=== PATIENT | female | born 1955 | race Caucasian/White ===

== ENCOUNTER → 2020-02-28 09:56 | Outpatient (BNVA) | payer MEDICARE, MEDICAID, SELFPAY | PROVIDERS: PCP Internal Medicine; Referring Provider Internal Medicine; Visit Provider Orthopaedic Surgery | DX: S42.201D Unspecified fracture of upper end of right humerus, subsequent encounter for fracture with routine healing (principal) | CPT/HCPCS: 20610; 99214; J1040 ==

== ENCOUNTER 2020-04-03 15:18 | Emergency (ER) | payer MEDICARE, MEDICAID, SELFPAY ==
[2020-04-03 15:44] VITALS: BP 140/53; PULSE 77; RESP 11; TEMP 36.6; O2SAT 100; BMI 25.6
[2020-04-03 15:51] VITALS: BP 140/53; PULSE 75; RESP 16; TEMP 36.6; O2SAT 100
--- NOTE | 2020-04-03 16:23 | ECG_ITS ---
Test Reason : SOB Blood Pressure : / mmHG Vent. Rate : 070 BPM Atrial Rate : 070 BPM P-R Int : 162 ms QRS Dur : 088 ms QT Int : 398 ms P-R-T Axes : 018 043 042 degrees QTc Int : 429 ms Normal sinus rhythm Normal ECG When compared with ECG of 05-MAY-2016 13:46, No significant change was found Heart rate has increased Referred By: Rafael Nicholas Electronically Signed By:JOEY BLACKMON MD
--- NOTE | 2020-04-03 16:23 | XR_ITS ---
EXAMINATION: XR CHEST CLINICAL INFORMATION: Cough and shortness of breath. COMPARISON: 04/06/2019 chest radiographs. TECHNIQUE: Frontal view of the chest was obtained. FINDINGS: A small focal opacity is seen laterally in the right midlung. The left lung is clear. The heart and mediastinal structures are unremarkable. XR/XR chest 1V IMPRESSION: Small focal opacity laterally in the right midlung may be projectional representing summation overlapping structures however a small infiltrate cannot be excluded.
--- NOTE | 2020-04-03 16:25 | ED_ITS ---
HPI - General Adult General Chief complaint: General Medical Stated complaint: NOT EATING WELL/DIARRHEA, COVID+ Time Seen by Provider: 04/03/20 16:22 Source: patient, EMS and bellows tester Mode of arrival: EMS Limitations: no limitations History of Present Illness HPI narrative: 64 years old female been having symptoms of flu-like symptoms body ache, headache, dry cough, chest pain with coughing, nausea, vomiting, p atient had recent exposure to somebody positive for COVID, patient had prior testing by her PCP for COVID was -2 weeks ago, patient is here today for worsening of his generalized weakness and dry cough. Patient described the symptoms started 3 days ago, symptoms as constant, associated symptoms as described above, nothing worsening the symptoms or improving the symptoms. Related Data Home Medications Medication Instructions Recorded Confirmed ascorbate calcium (vitamin C) PO 02/12/20 atorvastatin 80 mg tablet 80 mg PO DAILY 02/12/20 cholecalciferol (vitamin D3) 250 250 mcg PO DAILY 02/12/20 mcg (10,000 unit) capsule gabapentin 600 mg tablet 600 mg PO BID 02/12/20 hydrochlorothiazide 25 mg tablet 25 mg PO DAILY 02/12/20 hydroxyzine pamoate 25 mg capsule 25 mg PO BEDTIME 02/12/20 insulin glargine 100 unit/mL 10 unit SUBCUT DAILY 02/12/20 subcutaneous solution [id number] 1 cap PO TID 02/12/20 24,000-76,000-120,000 unit capsule,delayed rel lisinopril 40 mg tablet 40 mg PO DAILY 02/12/20 loperamide 2 mg capsule 2 mg PO Q6H PRN 02/12/20 metformin 500 mg tablet 500 mg PO DAILY 02/12/20 metoprolol tartrate 25 mg tablet 12.5 mg PO BID 02/12/20 omeprazole 40 mg capsule,delayed 40 mg PO DAILY 02/12/20 release Previous Rx's Medication Instructions Recorded sucralfate 100 mg/mL oral 3 ml PO .daily before supper #420 03/25/20 suspension ml doxycycline hyclate 100 mg PO BID #10 cap 04/03/20 Allergies Allergy/AdvReac Type Severity Reaction Status Date / Time cortisone [CORTISONE] Allergy Intermediate RASH Verified 03/25/20 09:36 morphine [Morphine] Allergy Intermediate RASH, Verified 03/25/20 09:36 ITCHING Penicillins Allergy Mild ITCHING Verified 03/25/20 09:36 hydrocortisone Allergy Unknown Unknown Verified 03/25/20 09:36 acetaminophen [From Percocet] Allergy Unknown Verified 03/25/20 09:36 oxycodone [From Percocet] Allergy Unknown Verified 03/25/20 09:36 sulfamethoxazole Allergy Unknown Verified 03/25/20 09:36 [From Bactrim] trimethoprim [From Bactrim] Allergy Unknown Verified 03/25/20 09:36 Review of Systems Review of Systems: All other systems are reviewed and are negative Constitutional: Reports as per HPI and Reports no additional constitutional complaints Eyes: Reports as per HPI and Reports no additional eye complaints Reports system reviewed and no additional complaints, except as documented Cardiovascular: Reports as per HPI and Reports no additional cardiovascular complaints Respiratory: Reports as per HPI and Reports no additional respiratory complaints Gastrointestinal: Reports as per HPI and Reports no additional gastrointestinal complaints Genitourinary: Reports no additional female genitourinary complaints Musculoskeletal: Reports no additional musculoskeletal complaints Skin/Breast: Reports system reviewed and no additional complaints, except as docu Psychiatric: Reports no additional psychiatric complaints Endocrine: Reports no additional endocrine complaints Hematologic/Lymphatic: Reports no additional hematologic/lymphatic complaints Allergic/Immunologic: Reports no additional allergic/immunologic complaints Reports system reviewed and no additional complaints, except as documented and Reports Abnormal speech present [facility] Past Medical History Surgical History H/O colonoscopy with polypectomy History of bilateral carpal tunnel release History of cholecystectomy History of esophagogastroduodenoscopy (EGD) Hx of colonoscopy Family History Family History Father No problems noted. Mother No problems noted. Brother No problems noted. Sister Breast cancer Sister No problems noted. Sister No problems noted. Sister No problems noted. Social History Social History Alcohol intake: never Smoking Status: Never smoker Smoked in Last 30 Days: No Use of substances other than those prescribed or required for medical reasons: No Advance Directives: No Advance Directives Information Provided: Yes Current occupational status: unemployed Current occupation: right handed Physical Exam Vital Signs: Vital Signs: Last Vital Signs Temp 98.7 F 04/03/20 17:26 Pulse 70 04/03/20 17:26 Resp 12 04/03/20 17:26 BP 142/71 H 04/03/20 17:26 Pulse Ox 100 04/03/20 17:26 Body Mass Index 25.6 Vital signs have been reviewed as normal and appeared to be correct. Blood pressure in the high range. Heart rate normal. Respiration rate normal. Temperature normal. Oxygen saturation normal. Appearance: Alert. Oriented X3. No acute distress. Head: Normal external exam. Normocephalic. Atraumatic. No Garcia signs noted. No raccoon eyes noted Eyes: PERRLA. EOMI. Conjunctiva and sclera normal. Eyelids normal. ENT: EAC normal. TM's Normal. Pharynx normal. Uvula midline. Moist mucous membranes. No trismus noted. No drooling noted. No muffled voice noted. Neck: Normal inspection. Neck supple. FROM. No adenopathy. Thyroid Normal. No meningeal signs. No neck mass noted. CVS: Normal heart rate and rhythm. Heart sound normal. No murmurs noted. Pulses normal throughout. Respiratory: No respiratory distress. Painless inspiration. Breath sounds normal. No wheezes/rales/rhonchi noted. Chest nontender. No accessory muscle usage noted or decreased air movement noted. Abdomen: Soft and nontender. Bowel sounds normal in all 4 quadrants. No distention noted. No organomegaly noted. No visible injury noted. Back: No CVA tenderness. Full range of motion noted. Skin: Skin warm and dry. Normal skin color. Normal skin turgor. No rashes/lesions/lacerations noted. Extremities: No lower extremity edema. Extremities exhibit normal range of motion. Extremities nontender. Neuro: Oriented X 3. No motor deficit. No sensory deficit. Reflexes normal. Course Course Course Narrative: 64-year-old female history of flu-like symptoms with positive recent exposure to COVID positive personal. Will monitor oxygen saturation on room air which appear to be fine, respiratory rate, chest x-ray, reassess the patient. Medical Decision Making MDM Narrative Medical decision making narrative: Assessment and plan. 64-year-old female came in with several days of generalized body ache, headache, COVID like symptoms after exposed to somebody was positive for COVID. Patient tested negative for COVID in the ER. Chest x-ray showed subtle area and right middle lobe could represent infiltrate?, will cover patient with doxycycline for few days. Lab Data Result diagrams: 04/03/20 16:34 04/03/20 16:34 Labs: Lab Results 04/03/20 04/03/20 04/03/20 Range/Units 16:34 16:34 16:34 WBC 8.2 (4.8-10.8) X10*3/uL RBC 3.85 L (4.20-5.50) X10*6/uL Hgb 12.0 (12.0-16.0) g/dl Hct 34.6 L (37-47) % MCV 89.9 (80-98) fL MCH 31.2 (27.0-33.0) pg MCHC 34.7 (31.0-35.0) g/dl RDW 11.8 (11.0-16.0) % Plt Count 245 (160-400) X10*3/uL MPV 11.8 (9.4-12.3) fL Immature Gran % (Auto) 0.4 (0.0-0.4) % Neut % (Auto) 65.0 (45-73) % Lymph % (Auto) 22.3 (20-40) % [place] % (Auto) 10.0 (2-11) % Eos % (Auto) 1.7 (0-4) % Baso % (Auto) 0.6 (0-2) % Lymph # (Auto) 1.8 (1.2-4.9) X10*3/uL [place] # (Auto) 0.8 (0.1-1.2) X10*3/uL Eos # (Auto) 0.1 (0.0-0.4) X10*3/uL Baso # (Auto) 0.1 (0.0-0.2) X10*3/uL Abs Immat Gran (auto) 0.03 (0.00-0.03) X10*3/uL Absolute Neuts (auto) 5.3 (2.0-8.3) X10*3/uL Absolute Nucleated RBC 0.000 (0.0-0.012) X10*3/uL Nucleated RBC % (auto) 0.0 (0.0-0.2) /100WBC Sodium Cancelled 133 L Potassium Cancelled 3.7 Chloride Cancelled 96 Carbon Dioxide Cancelled 23 Anion Gap Cancelled 18 BUN Cancelled 23 H Creatinine Cancelled 1.13 Estim Creat Clear Calc Cancelled 42.8 Estimated GFR Cancelled 48 Random Glucose Cancelled 126 H Calcium Cancelled 9.6 Total Bilirubin 0.5 (0.0-1.0) mg/dL Direct Bilirubin 0.2 (0.0-0.5) mg/dL AST 17 (5-31) U/L ALT 10 (0-31) U/L Alkaline Phosphatase 63 (39-117) U/L Troponin I High Sens (<3.5-17.0) ng/L B-Natriuretic Peptide (<100) pg/mL Total Protein 6.7 (6.5-8.0) g/dL Albumin 4.1 (3.5-5.0) g/dL Lipase Cancelled 207 H COVID-19 (KATIE) (Negative) COVID-19 Clin Com 04/03/20 04/03/20 Range/Units 16:34 16:34 WBC (4.8-10.8) X10*3/uL RBC (4.20-5.50) X10*6/uL Hgb (12.0-16.0) g/dl Hct (37-47) % MCV (80-98) fL MCH (27.0-33.0) pg MCHC (31.0-35.0) g/dl RDW (11.0-16.0) % Plt Count (160-400) X10*3/uL MPV (9.4-12.3) fL Immature Gran % (Auto) (0.0-0.4) % Neut % (Auto) (45-73) % Lymph % (Auto) (20-40) % [place] % (Auto) (2-11) % Eos % (Auto) (0-4) % Baso % (Auto) (0-2) % Lymph # (Auto) (1.2-4.9) X10*3/uL [place] # (Auto) (0.1-1.2) X10*3/uL Eos # (Auto) (0.0-0.4) X10*3/uL Baso # (Auto) (0.0-0.2) X10*3/uL Abs Immat Gran (auto) (0.00-0.03) X10*3/uL Absolute Neuts (auto) (2.0-8.3) X10*3/uL Absolute Nucleated RBC (0.0-0.012) X10*3/uL Nucleated RBC % (auto) (0.0-0.2) /100WBC Sodium Potassium Chloride Carbon Dioxide Anion Gap BUN Creatinine Estim Creat Clear Calc Estimated GFR Random Glucose Calcium Total Bilirubin (0.0-1.0) mg/dL Direct Bilirubin (0.0-0.5) mg/dL AST (5-31) U/L ALT (0-31) U/L Alkaline Phosphatase (39-117) U/L Troponin I High Sens < 3.5 (<3.5-17.0) ng/L B-Natriuretic Peptide 56 (<100) pg/mL Total Protein (6.5-8.0) g/dL Albumin (3.5-5.0) g/dL Lipase COVID-19 (KATIE) Negative (Negative) COVID-19 Clin Com See Note Imaging Data Chest x-ray: Radiologist's impression: Small focal opacity laterally in the right midlung may be projectional representing summation overlapping structures however a small infiltrate cannot be excluded. Discharge Plan Discharge Clinical Impression: Pneumonia Qualifiers: Pneumonia type: due to unspecified organism Laterality: right Patient Disposition: Home, Self-Care Instructions: Pneumonia (ED) Prescriptions: New doxycycline hyclate 100 mg capsule 100 mg PO BID Qty: 10 RF: 0 No Action sucralfate [Carafate] 100 mg/mL suspension 3 ml PO .daily before supper Qty: 420 RF: 6 Referrals: Physician,Unknown [Primary Care Provider] - 2 days
[2020-04-03] MEDS: 0.9 % Sodium Chloride 500 ML 999 ML IVCONT ×2 (16:32)
[2020-04-03 16:46] LABS: MANUAL DIFF FLAG NO
[2020-04-03 16:48] LABS: Basophils Absolute Auto 0.1 X10*3/uL (0.0-0.2); Basophils Percent Auto 0.6 % (0-2); Eosinophils Absolute Auto 0.1 X10*3/uL (0.0-0.4); Eosinophils Percent Auto 1.7 % (0-4); Hematocrit 34.6 % (37-47); Imm Gran Abs Auto 0.03 X10*3/uL (0.00-0.03); Imm Gran Pct Auto 0.4 % (0.0-0.4); Lymphocytes Absolute Auto 1.8 X10*3/uL (1.2-4.9); Lymphocytes Percent Auto 22.3 % (20-40); Mean Corpuscular HGB Conc 34.7 g/dl (31.0-35.0); Mean Corpuscular Hemoglobin 31.2 pg (27.0-33.0); Mean Corpuscular Volume 89.9 fL (80-98); Mean Platelet Volume 11.8 fL (9.4-12.3); Monocytes Absolute Auto 0.8 X10*3/uL (0.1-1.2); Neutrophils Absolute Auto 5.3 X10*3/uL (2.0-8.3); Platelet Count 245 X10*3/uL (160-400); Red Blood Count 3.85 X10*6/uL (4.20-5.50); Red Cell Distribution Width 11.8 % (11.0-16.0); White Blood Count 8.2 X10*3/uL (4.8-10.8)
[2020-04-03 17:18] LABS: Alanine Aminotransferase 10 U/L (0-31); Albumin Level 4.1 g/dL (3.5-5.0); Alkaline Phosphatase 63 U/L (39-117); Aspartate Amino Transferase 17 U/L (5-31); Bilirubin Direct 0.2 mg/dL (0.0-0.5); Bilirubin Total 0.5 mg/dL (0.0-1.0); Total Protein 6.7 g/dL (6.5-8.0)
[2020-04-03 17:24] LABS: B Type Natriuretic Peptide 56 pg/mL (<100); Troponin-I High Sensitivity < 3.5 ng/L (<3.5-17.0)
[2020-04-03 17:26] VITALS: BP 142/71; PULSE 70; RESP 12; TEMP 37.1; O2SAT 100
[2020-04-03 18:07] LABS: Anion Gap 18 (12-20); Blood Urea Nitrogen 23 mg/dL (9-16); Calcium 9.6 mg/dL (8.4-10.2); Carbon Dioxide 23 mmol/L (22-29); Chloride 96 mmol/L (96-108); Creatinine Clr Calc Pharmacy 42.8; Estimated Glomerular Filt Rate 48; Glucose Random 126 mg/dL (60-115); Potassium 3.7 mmol/l (3.3-5.1); Sodium 133 mmol/L (135-145)
[2020-04-03 18:22] LABS: COVID-19 Test Negative (Negative)
[2020-04-03 18:28] LABS: Lipase 207 U/L (8-78)
[2020-04-03 19:11] LABS: Glucose Urine UA NEG (NEG); Leukocyte Esterase Urine 2+ (NEG); Nitrite Urine NEG (NEG); PH 5.5 (5.0-8.0); Urine Blood NEG (NEG); Urine Ketones NEG (NEG); Urine Protein NEG (NEG-TRACE)
[2020-04-03 19:12] LABS: Appearance Urine CLEAR; Color Urine YELLOW
[2020-04-03 19:22] LABS: Bacteria Urine 1+ /LPF; RBC Urine 0 /HPF (0); Squamous Epithelial Cell Urine 2+ /LPF
== END 2020-04-03 19:09 | disposition home or self-care (01) ==
PROVIDERS: Emergency Provider Emergency Medicine
DX: J18.9 Pneumonia, unspecified organism (principal); R05 Cough; M79.10 Myalgia, unspecified site; R11.2 Nausea with vomiting, unspecified; R51.9 Headache, unspecified; Z20.828 Contact with and (suspected) exposure to other viral communicable diseases
CPT/HCPCS: 36415; 71045; 80048; 80076; 81001; 83690; 83880; 84484; 85025; 87086; 87635; 93005; 99284

== ENCOUNTER 2020-04-06 17:23 | Emergency (ER) | payer MEDICARE, MEDICAID, SELFPAY ==
[2020-04-06 17:41] VITALS: BP 147/66; BP 150/78; PULSE 76; PULSE 93; RESP 17; TEMP 36.6; O2SAT 100; BMI 25.6
--- NOTE | 2020-04-06 17:46 | ECG_ITS ---
Test Reason : EPIGASTRIC PAIN Blood Pressure : / mmHG Vent. Rate : 068 BPM Atrial Rate : 068 BPM P-R Int : 156 ms QRS Dur : 082 ms QT Int : 418 ms P-R-T Axes : 000 034 035 degrees QTc Int : 444 ms Normal sinus rhythm Normal ECG When compared with ECG of 03-APR-2020 16:33, No significant change was found Referred By: Bry Spencer Electronically Signed By:JOEY BLACKMON MD
[2020-04-06 17:54] VITALS: BP 147/66; PULSE 76; RESP 17; TEMP 36.6; O2SAT 100
--- NOTE | 2020-04-06 18:03 | ED_ITS ---
HPI - Abdominal Pain General Chief Complaint: Abdominal Pain Stated Complaint: UPSET STOMACH Time Seen by Provider: 04/06/20 18:21 Source: patient Mode of arrival: EMS Limitations: no limitations History of Present Illness HPI narrative: Patient presents to ED for epigastric pain described as sharp, stabbing, diarrhea, and acid burning sensation for 2 days since taking doxycycilne. Patient mild diarrhea also. Patient recently diagnosed with pneumonia 2 days ago and started doxycycline regimen. Patient states no fever, chills, hematuria, flank pain, night sweats chest pain, shortness of breath, swelling of lower extremities, calf pain, recent surgery, chest pain on inspiration, recent travel, recent trauma or dizziness. Patient does states she still has dry cough. MD elicited complaint: abdominal pain Related Data Home Medications Medication Instructions Recorded Confirmed ascorbate calcium (vitamin C) PO 02/12/20 atorvastatin 80 mg tablet 80 mg PO DAILY 02/12/20 cholecalciferol (vitamin D3) 250 250 mcg PO DAILY 02/12/20 mcg (10,000 unit) capsule gabapentin 600 mg tablet 600 mg PO BID 02/12/20 hydrochlorothiazide 25 mg tablet 25 mg PO DAILY 02/12/20 hydroxyzine pamoate 25 mg capsule 25 mg PO BEDTIME 02/12/20 insulin glargine 100 unit/mL 10 unit SUBCUT DAILY 02/12/20 subcutaneous solution [id number]-[id number] 1 cap PO TID 02/12/20 24,000-76,000-120,000 unit capsule,delayed rel lisinopril 40 mg tablet 40 mg PO DAILY 02/12/20 loperamide 2 mg capsule 2 mg PO Q6H PRN 02/12/20 metformin 500 mg tablet 500 mg PO DAILY 02/12/20 metoprolol tartrate 25 mg tablet 12.5 mg PO BID 02/12/20 omeprazole 40 mg capsule,delayed 40 mg PO DAILY 02/12/20 release Previous Rx's Medication Instructions Recorded sucralfate 100 mg/mL oral 3 ml PO .daily before supper #420 03/25/20 suspension ml doxycycline hyclate 100 mg PO BID #10 cap 04/03/20 azithromycin [Zithromax Z-Donte] See Rx Instructions .ROUTE 04/06/20 .COMPLEX #6 tab Allergies Allergy/AdvReac Type Severity Reaction Status Date / Time cortisone [CORTISONE] Allergy Intermediate RASH Verified 03/25/20 09:36 morphine [Morphine] Allergy Intermediate RASH, Verified 03/25/20 09:36 ITCHING Penicillins Allergy Mild ITCHING Verified 03/25/20 09:36 hydrocortisone Allergy Unknown Unknown Verified 03/25/20 09:36 acetaminophen [From Percocet] Allergy Unknown Verified 03/25/20 09:36 oxycodone [From Percocet] Allergy Unknown Verified 03/25/20 09:36 sulfamethoxazole Allergy Unknown Verified 03/25/20 09:36 [From Bactrim] trimethoprim [From Bactrim] Allergy Unknown Verified 03/25/20 09:36 Review of Systems Review of Systems Yes all other systems are reviewed and are negative Constitutional: Reports as per HPI and Reports no additional constitutional complaints Eyes: Reports as per HPI and Reports no additional eye complaints Reports system reviewed and no additional complaints, except as documented and Reports as per HPI Cardiovascular: Reports as per HPI and Reports no additional cardiovascular complaints Respiratory: Reports cough Gastrointestinal: Reports as per HPI, Reports no additional gastrointestinal complaints, Reports abdominal pain, Reports nausea and Reports vomiting Genitourinary: Reports no additional female genitourinary complaints and Reports as per HPI Musculoskeletal: Reports no additional musculoskeletal complaints and Reports as per HPI Reports system reviewed and no additional complaints, except as documented and Reports as per HPI Psychiatric: Reports no additional psychiatric complaints and Reports as per HPI Physical Exam Vital Signs: Vital Signs: Last Vital Signs Temp 98 F 04/06/20 22:13 Pulse 78 04/06/20 22:13 Resp 12 04/06/20 22:13 BP 159/69 H 04/06/20 22:13 Pulse Ox 100 04/06/20 22:13 Body Mass Index 25.6 Const: General: cooperative, healthy appearing, comfortable, no acute distress, well developed, alert, awake and Physically active Orientation/consciousness: patient oriented x3 HENMT: Head: Yes normal to inspection and Yes No palpable skull fracture present Eyes: General: appearance normal, both eyes and all related structures Neck: Neck: Yes normal visual inspection, Yes full ROM, Yes no lymphadenopathy, Yes no meningeal signs, Yes trachea midline and No tender Chest: Chest palpation & inspection: normal inspection of the chest, normal palpation of entire chest wall and no localized rib tenderness Resp: Effort & Inspection: normal respiratory effort and able to speak in complete sentences Auscultation: clear to auscultation bilaterally Cardio: Jugular venous distension: no JVD Heart sounds: S1 normal heart sound present and S2 normal heart sound present GI: Inspection: Yes normal to inspection, No abdominal wall ecchymosis, No Abdominal wall edema and No distended Palpation (GI): Soft to palpation and Tenderness to palpation present (GI) in the epigastrum; not at McBurney's point, not periumbilically, not suprapubicly, Blount's sign negative, obturator sign negative, psoas sign negative, with no rebound tenderness and Rovsing's sign n egative : General: No CVA tenderness and Yes no CVA tenderness Back/Spine/Pelvis: Back: no CVA tenderness, No CVA tenderness and No back tenderness Skin: General skin exam: no rashes or lesions noted Neuro: General: patient oriented x3, gait normal, no meningeal signs and CN's II-XI intact bilaterally Cranial nerves: Yes CN's II-XII intact bilaterally Extrem: General: Yes normal to inspection, Yes full ROM and Yes capillary refill normal Psych: Appearance: grossly normal, well kempt and not disheveled Course Course Course Narrative: Symptoms may be due to patient start doxycycline, but be due to age patient had a medical workup which included labs, troponin, and EKG. patient given Pepcid, viscous lidocaine, Maalox, Zofran, and fluids. Reevaluation(s) Reevaluation #1: patient states epigastric pain improved significantly after receiving meds. Patient states she feels better. Due to patient age she will be sent for abdominal CT scan does not make sure there is no underlying abdominal etiology. Waiting for UA. Troponin negative after 2 days of epigastric pain. EKG is normal. History physical exam does not indicate PE or dissection. Time: 19:35 Reevaluation #2: Abdominal CT scan negative for any acute abdominal etiologies. Urinalysis negative for any infection. Patient is safe for discha rge. coronary up-to-date, doxycycline can cause GI symptoms such as abdominal pain, diarrhea, nausea, and vomiting. patient informed to stop taking doxycycline and take azithromycin instead. Time: 22:47 MDM - Abdominal Pain MDM Narrative Medical decision making narrative: GI symptoms due to antibiotic Lab Data Result diagrams: 04/06/20 18:05 04/06/20 18:05 Labs: Lab Results 04/06/20 04/06/20 04/06/20 Range/Units 18:05 18:05 18:05 WBC 7.7 (4.8-10.8) X10*3/uL RBC 3.94 L (4.20-5.50) X10*6/uL Hgb 12.3 (12.0-16.0) g/dl Hct 34.8 L (37-47) % MCV 88.3 (80-98) fL MCH 31.2 (27.0-33.0) pg MCHC 35.3 H (31.0-35.0) g/dl RDW 11.6 (11.0-16.0) % Plt Count 255 (160-400) X10*3/uL MPV 10.9 (9.4-12.3) fL Immature Gran % (Auto) 0.3 (0.0-0.4) % Neut % (Auto) 60.2 (45-73) % Lymph % (Auto) 28.8 (20-40) % [place] % (Auto) 8.2 (2-11) % Eos % (Auto) 1.7 (0-4) % Baso % (Auto) 0.8 (0-2) % Lymph # (Auto) 2.2 (1.2-4.9) X10*3/uL [place] # (Auto) 0.6 (0.1-1.2) X10*3/uL Eos # (Auto) 0.1 (0.0-0.4) X10*3/uL Baso # (Auto) 0.1 (0.0-0.2) X10*3/uL Abs Immat Gran (auto) 0.02 (0.00-0.03) X10*3/uL Absolute Neuts (auto) 4.6 (2.0-8.3) X10*3/uL Absolute Nucleated RBC 0.000 (0.0-0.012) X10*3/uL Nucleated RBC % (auto) 0.0 (0.0-0.2) /100WBC PT 13.0 (10.8-13.0) SEC INR 1.1 (0.9-1.1) APTT 32.6 (24.1-38.0) SEC Sodium 133 L (135-145) mmol/L Potassium 3.6 (3.3-5.1) mmol/l Chloride 96 (96-108) mmol/L Carbon Dioxide 24 (22-29) mmol/L Anion Gap 17 (12-20) BUN 12 (9-16) mg/dL Creatinine 0.89 (0.5-1.4) mg/dL Estim Creat Clear Calc 54.4 Estimated GFR > 60 Random Glucose 134 H (60-115) mg/dL Calcium 9.6 (8.4-10.2) mg/dL Total Bilirubin 0.6 (0.0-1.0) mg/dL Direct Bilirubin 0.2 (0.0-0.5) mg/dL AST 20 (5-31) U/L ALT 13 (0-31) U/L Alkaline Phosphatase 66 (39-117) U/L Troponin I High Sens (<3.5-17.0) ng/L Total Protein 7.1 (6.5-8.0) g/dL Albumin 4.3 (3.5-5.0) g/dL Lipase 120 H (8-78) U/L Urine Color Urine Appearance Urine pH (5.0-8.0) Ur Specific [place] (1.005-1.025) Urine Protein (NEG-TRACE) MG/DL Urine Glucose (UA) (NEG) MG/DL Urine Ketones (NEG) MG/DL Urine Blood (NEG) Urine Nitrite (NEG) Ur Leukocyte Esterase (NEG) 04/06/20 04/06/20 Range/Units 18:05 22:17 WBC (4.8-10.8) X10*3/uL RBC (4.20-5.50) X10*6/uL Hgb (12.0-16.0) g/dl Hct (37-47) % MCV (80-98) fL MCH (27.0-33.0) pg MCHC (31.0-35.0) g/dl RDW (11.0-16.0) % Plt Count (160-400) X10*3/uL MPV (9.4-12.3) fL Immature Gran % (Auto) (0.0-0.4) % Neut % (Auto) (45-73) % Lymph % (Auto) (20-40) % [place] % (Auto) (2-11) % Eos % (Auto) (0-4) % Baso % (Auto) (0-2) % Lymph # (Auto) (1.2-4.9) X10*3/uL [place] # (Auto) (0.1-1.2) X10*3/uL Eos # (Auto) (0.0-0.4) X10*3/uL Baso # (Auto) (0.0-0.2) X10*3/uL Abs Immat Gran (auto) (0.00-0.03) X10*3/uL Absolute Neuts (auto) (2.0-8.3) X10*3/uL Absolute Nucleated RBC (0.0-0.012) X10*3/uL Nucleated RBC % (auto) (0.0-0.2) /100WBC PT (10.8-13.0) SEC INR (0.9-1.1) APTT (24.1-38.0) SEC Sodium (135-145) mmol/L Potassium (3.3-5.1) mmol/l Chloride (96-108) mmol/L Carbon Dioxide (22-29) mmol/L Anion Gap (12-20) BUN (9-16) mg/dL Creatinine (0.5-1.4) mg/dL Estim Creat Clear Calc Estimated GFR Random Glucose (60-115) mg/dL Calcium (8.4-10.2) mg/dL Total Bilirubin (0.0-1.0) mg/dL Direct Bilirubin (0.0-0.5) mg/dL AST (5-31) U/L ALT (0-31) U/L Alkaline Phosphatase (39-117) U/L Troponin I High Sens 4.4 (<3.5-17.0) ng/L Total Protein (6.5-8.0) g/dL Albumin (3.5-5.0) g/dL Lipase (8-78) U/L Urine Color YELLOW Urine Appearance CLEAR Urine pH 6.5 (5.0-8.0) Ur Specific [place] <= 1.005 (1.005-1.025) Urine Protein NEG (NEG-TRACE) MG/DL Urine Glucose (UA) NEG (NEG) MG/DL Urine Ketones NEG (NEG) MG/DL Urine Blood NEG (NEG) Urine Nitrite NEG (NEG) Ur Leukocyte Esterase NEG (NEG) ECG Data Interpretation: normal sinus rhythm. Ventricular rate 68. [place] interval 156. QRS 82. Normal EKG. Negative STEMI Discharge Plan Discharge Clinical Impression: Medication side effects Patient Disposition: Home, Self-Care Instructions: Adverse Drug Reaction (ED) Additional Instructions: return to the ED for worsening abdominal pain, chest pain, shortness of breath, weakness, dizziness, nausea, vomiting, worsening diarrhea, or any other concerning symptoms. Stop taking doxycycline and take azithromycin instead Prescriptions: New azithromycin [Zithromax Z-Donte] 250 mg tablet See Rx Instructions .ROUTE .COMPLEX Qty: 6 RF: 0 No Action doxycycline hyclate 100 mg capsule 100 mg PO BID Qty: 10 RF: 0 sucralfate [Carafate] 100 mg/mL suspension 3 ml PO .daily before supper Qty: 420 RF: 6 Referrals: Makenna Trinidad MD [Primary Care Provider] - 2 days (Adverse effects of doxycycline) Interventions: ED Discharge Assessment Last Done: 04/06/20 23:09 Discharge Date/Time: 04/06/20 23:06 Print Language: Mohawk [facility] Past Medical History Surgical History H/O colonoscopy with polypectomy History of bilateral carpal tunnel release History of cholecystectomy History of esophagogastroduodenoscopy (EGD) Hx of colonoscopy Family History Family History Father No problems noted. Mother No problems noted. Brother No problems noted. Sister Breast cancer Sister No problems noted. Sister No problems noted. Sister No problems noted. Social History Social History Alcohol intake: never Smoking Status: Never smoker Smoked in Last 30 Days: No Use of substances other than those prescribed or required for medical reasons: No Advance Directives: No Advance Directives Information Provided: Yes Current occupational status: unemployed Current occupation: right handed
[2020-04-06] MEDS: 0.9 % Sodium Chloride 1,000 ML 999 ML IVCONT (18:07)
[2020-04-06] MEDS: ondansetron HCL 4 MG/2 ML VIAL IVPUSH (18:12)
[2020-04-06] MEDS: Famotidine/PF 20 MG/2 ML VIAL IVPUSH (18:12)
[2020-04-06 18:13] LABS: Basophils Absolute Auto 0.1 X10*3/uL (0.0-0.2); Basophils Percent Auto 0.8 % (0-2); Eosinophils Absolute Auto 0.1 X10*3/uL (0.0-0.4); Eosinophils Percent Auto 1.7 % (0-4); Hematocrit 34.8 % (37-47); Hemoglobin 12.3 g/dl (12.0-16.0); Imm Gran Abs Auto 0.02 X10*3/uL (0.00-0.03); Imm Gran Pct Auto 0.3 % (0.0-0.4); Lymphocytes Absolute Auto 2.2 X10*3/uL (1.2-4.9); Lymphocytes Percent Auto 28.8 % (20-40); MANUAL DIFF FLAG NO; Mean Corpuscular HGB Conc 35.3 g/dl (31.0-35.0); Mean Corpuscular Hemoglobin 31.2 pg (27.0-33.0); Mean Corpuscular Volume 88.3 fL (80-98); Mean Platelet Volume 10.9 fL (9.4-12.3); Monocytes Absolute Auto 0.6 X10*3/uL (0.1-1.2); Monocytes Percent Auto 8.2 % (2-11); Neutrophils Absolute Auto 4.6 X10*3/uL (2.0-8.3); Neutrophils Percent Auto 60.2 % (45-73); Platelet Count 255 X10*3/uL (160-400); Red Blood Count 3.94 X10*6/uL (4.20-5.50); Red Cell Distribution Width 11.6 % (11.0-16.0); White Blood Count 7.7 X10*3/uL (4.8-10.8)
[2020-04-06 18:23] LABS: INTERNATIONAL NORM RATIO 1.1 (0.9-1.1)
[2020-04-06 18:25] LABS: Partial Thromboplastin Time 32.6 SEC (24.1-38.0)
[2020-04-06] MEDS: Magnesium Hydrox/Alum Hydrox 30 ML ORAL.SUSP PO (18:42)
[2020-04-06] MEDS: Lidocaine HCl Viscous 2 % 15 ML SOLUTION MUCOUS MEM (18:42)
[2020-04-06 18:50] LABS: Troponin-I High Sensitivity 4.4 ng/L (<3.5-17.0)
[2020-04-06 19:13] LABS: Alanine Aminotransferase 13 U/L (0-31); Albumin Level 4.3 g/dL (3.5-5.0); Alkaline Phosphatase 66 U/L (39-117); Anion Gap 17 (12-20); Aspartate Amino Transferase 20 U/L (5-31); Bilirubin Direct 0.2 mg/dL (0.0-0.5); Bilirubin Total 0.6 mg/dL (0.0-1.0); Blood Urea Nitrogen 12 mg/dL (9-16); Calcium 9.6 mg/dL (8.4-10.2); Carbon Dioxide 24 mmol/L (22-29); Chloride 96 mmol/L (96-108); Creatinine Clr Calc Pharmacy 54.4; Estimated Glomerular Filt Rate > 60; Glucose Random 134 mg/dL (60-115); Lipase 120 U/L (8-78); Potassium 3.6 mmol/l (3.3-5.1); Sodium 133 mmol/L (135-145); Total Protein 7.1 g/dL (6.5-8.0)
--- NOTE | 2020-04-06 19:33 | CT_ITS ---
EXAMINATION: CT ABDOMEN AND PELVIS WITH CONTRAST CLINICAL INFORMATION: Epigastric pain. COMPARISON: MR abdomen dated 11/10/[address] abdomen/pelvis dated 10/26/2018. TECHNIQUE: Multidetector volumetric images were obtained from the superior aspect of the liver through the pubic symphysis following administration 85 mL of Omnipaque 350 intravenous contrast. Sagittal and coronal reformatted images were obtained on the technologist's workstation. Oral Contrast: No. This CT examination was performed using dose optimization techniques as appropriate, variously including the following: *Automated exposure control. *Adjustment of mA and/or kV according to patient size (this includes techniques or standardized protocols for targeted exams where dose is matched to indication/reason for exam; i.e. extremities or head). *Use of iterative reconstruction technique. DLP: 399 mGy-cm FINDINGS: LUNG BASES: The visualized lung bases are unremarkable. LIVER, GALLBLADDER, AND BILIARY TREE: The liver is normal in size, shape, and attenuation. No focal hepatic lesion or biliary ductal dilatation is present. Status post cholecystectomy. PANCREAS: Unremarkable. SPLEEN: Unremarkable. ADRENAL GLANDS: Unremarkable. KIDNEYS AND URETERS: The kidneys are normal in size, shape, and attenuation. No hydronephrosis, hydroureter, or calculi seen. No perinephric stranding. BLADDER: Mild urinary bladder wall prominence, which may be due to underdistention. No significant adjacent inflammatory change. Early cystitis could be considered in the appropriate clinical setting. GASTROINTESTINAL TRACT: No bowel wall thickening or associated inflammatory change. No small or large bowel obstruction. Unremarkable appendix. PERITONEAL CAVITY: No intra-abdominal free air. Trace pelvic free fluid. No intra-abdominal mass or organized fluid collection. ABDOMINAL WALL: No significant hernia is appreciated. LYMPH NODES: No significant lymphadenopathy. VASCULAR: No abdominal aortic dilatation or dissection. Atherosclerotic calcifications throughout the abdominal aorta and its branch vessels. Unremarkable IVC. PELVIC VISCERA: The uterus and adnexa are unremarkable. OSSEOUS STRUCTURES: No concerning lytic or blastic osseous lesion. CT/CT abdomen pelvis w con IMPRESSION: 1. Mild wall prominence of the urinary bladder without adjacent inflammatory change. Findings may be due to underdistention. Early cystitis could be considered in the appropriate clinical setting. 2. No hydronephrosis or nephrolithiasis. 3. No bowel wall thickening or associated inflammatory change. No small or large bowel obstruction. Unremarkable appendix. 4. No intra-abdominal mass, lymphadenopathy, or ascites.
[2020-04-06] MEDS: iohexoL 350 MG/ML 100 ML INFUS..BTL IV (20:44)
[2020-04-06 22:13] VITALS: BP 159/69; PULSE 78; RESP 12; TEMP 36.6; O2SAT 100
[2020-04-06 22:29] LABS: Glucose Urine UA NEG (NEG); Leukocyte Esterase Urine NEG (NEG); Nitrite Urine NEG (NEG); PH 6.5 (5.0-8.0); Specific Gravity - Urine <= 1.005 (1.005-1.025); Urine Blood NEG (NEG); Urine Ketones NEG (NEG); Urine Protein NEG (NEG-TRACE)
[2020-04-06 22:30] LABS: Appearance Urine CLEAR; Color Urine YELLOW
== END 2020-04-06 23:06 | disposition home or self-care (01) ==
PROVIDERS: Physician Assistant; Emergency Provider Internal Medicine; PCP Internal Medicine
DX: R10.13 Epigastric pain (principal); Z79.899 Other long term (current) drug therapy
CPT/HCPCS: 36415; 74177; 80053; 80076; 81003; 82248; 83690; 84484; 85025; 85610; 85730; 93005; 96361; 96374; 96375; 99284; J2405; Q9967

== ENCOUNTER 2020-04-15 10:17 | Outpatient (REF) | payer MEDICARE, MEDICAID, SELFPAY ==
--- NOTE | 2020-04-15 10:28 | XR_ITS ---
EXAMINATION: XR CHEST CLINICAL INFORMATION: Pain, fever, shortness of breath, cough. COMPARISON: Chest radiographs 04/03/2020, 04/06/2019; CT abdomen 04/06/2020 TECHNIQUE: 2 views of the chest were obtained. FINDINGS: There is no lobar or segmental airspace consolidation or interval groundglass opacity. There is no pleural reaction or effusion. The vascularity is normal. The heart is normal in size. The hilar and mediastinal contours and bony structures are unremarkable. XR/XR chest 2V IMPRESSION: Unremarkable examination.
== END 2020-04-15 10:18 | disposition home or self-care (01) ==
LOC: HO.XRAY 10:17
PROVIDERS: PCP Internal Medicine; Visit Provider Registered Nurse
DX: R05 Cough (principal); R06.02 Shortness of breath; R50.9 Fever, unspecified; R52 Pain, unspecified; Z20.828 Contact with and (suspected) exposure to other viral communicable diseases
CPT/HCPCS: 71046

== ENCOUNTER 2020-06-10 07:53 | Outpatient (REF) | payer OTHER, SELFPAY ==
[2020-06-10 08:27] LABS: MANUAL DIFF FLAG NO
[2020-06-10 08:36] LABS: Basophils Absolute Auto 0.1 X10*3/uL (0.0-0.2); Basophils Percent Auto 1.1 % (0-2); Eosinophils Absolute Auto 0.6 X10*3/uL (0.0-0.4); Eosinophils Percent Auto 8.6 % (0-4); Hematocrit 32.5 % (37-47); Hemoglobin 10.9 g/dl (12.0-16.0); Imm Gran Abs Auto 0.01 X10*3/uL (0.00-0.03); Imm Gran Pct Auto 0.2 % (0.0-0.4); Lymphocytes Absolute Auto 3.3 X10*3/uL (1.2-4.9); Lymphocytes Percent Auto 50.1 % (20-40); Mean Corpuscular HGB Conc 33.5 g/dl (31.0-35.0); Mean Corpuscular Hemoglobin 31.1 pg (27.0-33.0); Mean Corpuscular Volume 92.9 fL (80-98); Mean Platelet Volume 11.9 fL (9.4-12.3); Monocytes Absolute Auto 0.7 X10*3/uL (0.1-1.2); Platelet Count 206 X10*3/uL (160-400); Red Cell Distribution Width 12.8 % (11.0-16.0); White Blood Count 6.5 X10*3/uL (4.8-10.8)
[2020-06-10 09:03] LABS: Alanine Aminotransferase < 6 U/L (0-31); Alkaline Phosphatase 62 U/L (39-117); Anion Gap 10 (12-20); Aspartate Amino Transferase 16 U/L (5-31); Bilirubin Total 0.5 mg/dL (0.0-1.0); Blood Urea Nitrogen 11 mg/dL (9-16); Calcium 9.2 mg/dL (8.4-10.2); Carbon Dioxide 31 mmol/L (22-29); Chloride 101 mmol/L (96-108); Estimated Glomerular Filt Rate > 60; Glucose Random 107 mg/dL (60-115); Potassium 3.6 mmol/l (3.3-5.1); Sodium 138 mmol/L (135-145); Total Protein 6.4 g/dL (6.5-8.0)
== END 2020-06-10 07:54 | disposition home or self-care (01) ==
LOC: HO.LAB 07:53
PROVIDERS: Visit Provider Internal Medicine
DX: R10.9 Unspecified abdominal pain (principal)
CPT/HCPCS: 36415; 80053; 85025

== ENCOUNTER → 2020-06-11 08:52 | Outpatient (BNVA) | payer MEDICARE, MEDICAID, SELFPAY | PROVIDERS: PCP Internal Medicine; Visit Provider Nurse Practitioner | DX: Z13.89 Encounter for screening for other disorder (principal) | CPT/HCPCS: Q3014 ==

== ENCOUNTER 2020-06-15 07:43 | Outpatient (REF) | payer OTHER, SELFPAY ==
[2020-06-15 08:36] LABS: Iron 63 mcg/dL (30-160); Percent Iron Saturation 30 % (15-50); Total Iron Binding Capacity 210 mcg/dL (228-428); Unsaturated Iron Binding 147 ug/dL
[2020-06-15 09:48] LABS: Creatinine Urine 53.75 mg/dL
[2020-06-17 14:57] LABS: Anti Nuclear Antibody Screen NEGATIVE (NEGATIVE)
[2020-06-17 16:58] LABS: Folate 14.7 ng/mL (> or = 4.0); Vitamin B12 438 pg/mL (200-900)
[2020-06-17 17:17] LABS: Lyme Abs Screen <0.90 index
== END 2020-06-15 07:44 | disposition home or self-care (01) ==
LOC: HO.LAB 07:43
PROVIDERS: Visit Provider Internal Medicine
DX: E11.9 Type 2 diabetes mellitus without complications (principal); I10 Essential (primary) hypertension; M25.50 Pain in unspecified joint
CPT/HCPCS: 36415; 82043; 82607; 82746; 83540; 86038; 86039; 86618

== ENCOUNTER → 2020-06-25 09:54 | Outpatient (BNVA) | payer MEDICARE, SELFPAY | PROVIDERS: PCP Internal Medicine; Visit Provider Nurse Practitioner | DX: Z76.89 Persons encountering health services in other specified circumstances (principal) | CPT/HCPCS: Q3014 ==

== ENCOUNTER → 2020-07-10 10:59 | Outpatient (BNVA) | payer MEDICARE, MEDICAID, SELFPAY | PROVIDERS: PCP Internal Medicine; Visit Provider Nurse Practitioner | CPT/HCPCS: Q3014 ==

== ENCOUNTER 2020-07-10 15:35 | Emergency (ER) | payer MEDICARE, SELFPAY ==
--- NOTE | ~2020-07-10 | CT_ITS ---
EXAMINATION: CT ABDOMEN AND PELVIS WITH CONTRAST CLINICAL INFORMATION: 64-year-old female with epigastric pain and 120 pound weight loss in 4 months. COMPARISON: CT abdomen pelvis 04/06/2020 TECHNIQUE: Multidetector volumetric images were obtained from the superior aspect of the liver through the pubic symphysis following administration 85 mL of Omnipaque 350 intravenous contrast. Sagittal and coronal reformatted images were obtained on the technologist's workstation. This CT examination was performed using dose optimization techniques as appropriate, variously including the following: *Automated exposure control *Adjustment of mA and/or kV according to patient size (this includes techniques or standardized protocols for targeted exams where dose is matched to indication/reason for exam; i.e. extremities or head) *Use of iterative reconstruction technique DLP: 395 mGy-cm FINDINGS: Visualized lung bases demonstrate mild dependent atelectasis. The liver demonstrates normal size, contour and attenuation. The gallbladder is surgically absent. The pancreas, spleen and adrenal glands are unremarkable. Symmetrically enhancing kidneys. No hydronephrosis bilaterally. The stomach is relatively decompressed and therefore not optimally characterized. Normal caliber loops of small bowel. There is a moderate to large stool burden throughout the colon. Normal appendix. Nonaneurysmal abdominal aorta which demonstrates mild to moderate atherosclerotic disease. No retroperitoneal lymphadenopathy. The bladder is well-distended. There is suggestion of possible thickening along the anterolateral left bladder wall, nonspecific. Unremarkable CT appearance of the uterus. No gross free pelvic fluid. No gross free pelvic fluid. No inguinal lymphadenopathy. Diffuse osteopenia. Mild degenerative changes of the spine. CT/CT abdomen pelvis w con IMPRESSION: 1. Moderate to large stool burden throughout the colon suggesting constipation. 2. Possible thickening along the anterolateral left bladder wall. This is a nonspecific finding and may be secondary to incomplete distention of the bladder. Clinical correlation is recommended. Further evaluation with direct inspection as clinically indicated.
[2020-07-10 18:25] VITALS: BP 169/79; PULSE 65; RESP 12; TEMP 36.8; O2SAT 100; BMI 23.8
[2020-07-10 18:33] VITALS: BP 169/79; PULSE 70; RESP 16; TEMP 36.8; O2SAT 96
--- NOTE | 2020-07-10 18:39 | ECG_ITS ---
Test Reason : EPIGASTRIC Blood Pressure : / mmHG Vent. Rate : 061 BPM Atrial Rate : 061 BPM P-R Int : 164 ms QRS Dur : 088 ms QT Int : 412 ms P-R-T Axes : -03 054 046 degrees QTc Int : 414 ms Normal sinus rhythm Normal ECG When compared with ECG of 06-APR-2020 18:12, No significant change was found Referred By: Saira Rouse Electronically Signed By:DONNY ROSARIO MD
--- NOTE | 2020-07-10 18:41 | ED_ITS ---
HPI - General Adult General Chief complaint: Nausea/Vomiting/Diarrhea Stated complaint: Multiple complaints Time Seen by Provider: 07/10/20 18:30 Source: patient Mode of arrival: ambulatory Limitations: no limitations History of Present Illness HPI narrative: Patient comes to emergency room complaining of abdominal pain. Patient states he has had chronic abdominal pain for several months but started getting worse approximately 3 weeks ago. Patient states that she has lost approximately 120 falls in 4 months. Patient had a gastroenterology consult today. Patient already had a cholecystectomy. 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 MD complaint: Weight loss, epigastric pain Related Data Home Medications Medication Instructions Recorded Confirmed ascorbate calcium (vitamin C) PO 02/12/20 atorvastatin 80 mg tablet 80 mg PO DAILY 02/12/20 cholecalciferol (vitamin D3) 250 250 mcg PO DAILY 02/12/20 mcg (10,000 unit) capsule gabapentin 600 mg tablet 600 mg PO BID 02/12/20 hydrochlorothiazide 25 mg tablet 25 mg PO DAILY 02/12/20 hydroxyzine pamoate 25 mg capsule 25 mg PO BEDTIME 02/12/20 insulin glargine 100 unit/mL 10 unit SUBCUT DAILY 02/12/20 subcutaneous solution lisinopril 40 mg tablet 40 mg PO DAILY 02/12/20 loperamide 2 mg capsule 2 mg PO Q6H PRN 02/12/20 metformin 500 mg tablet 500 mg PO DAILY 02/12/20 metoprolol tartrate 25 mg tablet 12.5 mg PO BID 02/12/20 albuterol sulfate 90 mcg/actuation 0 mcg INHALATION 07/10/20 aerosol inhaler aspirin 81 mg tablet,delayed 81 mg PO DAILY 07/10/20 release Previous Rx's Medication Instructions Recorded [id number] 1 cap PO TID #90 cap 05/06/20 24,000-76,000-120,000 unit capsule,delayed rel ondansetron HCl 4 mg tablet 4 mg PO BID-TID PRN 30 Days #90 tab 06/11/20 cholestyramine (with sugar) 4 gram See Rx Instructions PO BID 30 Days 06/25/20 oral powder #378 g omeprazole 40 mg capsule,delayed 40 mg PO BID 30 Days #60 cap 06/25/20 release Allergies Allergy/AdvReac Type Severity Reaction Status Date / Time cortisone [CORTISONE] Allergy Intermediate RASH Verified 07/10/20 18:37 morphine [Morphine] Allergy Intermediate RASH, Verified 07/10/20 18:37 ITCHING Penicillins Allergy Mild ITCHING Verified 07/10/20 18:37 hydrocortisone Allergy Unknown Unknown Verified 07/10/20 18:37 oxycodone [From Percocet] Allergy Unknown Verified 07/10/20 18:37 sulfamethoxazole Allergy Unknown Verified 07/10/20 18:37 [From Bactrim] trimethoprim [From Bactrim] Allergy Unknown Verified 07/10/20 18:37 Review of Systems Review of Systems: Constitutional : Reports 120 lb weight loss in 4 months, No Fever, No Chills, No Night Sweats, No Fatigue, No Malaise ENT/Mouth : No Hearing loss, No Ear Pain, No Nasal Congestion, No Sinus Pain, No Hoarseness, No sore throat, No Rhinorrhea, No Swallowing Difficulty Eyes: No Eye Pain, No Swelling, No Redness, No Foreign Body, No Discharge, No Vi priya Changes Cardiovascular : No Chest Pain, No SOB, No Dyspnea on Exertion, No Orthopnea, No Edema, No Palpitations Respiratory : No Cough, No Sputum, No Wheezing, No Smoke Exposure, No Dyspnea Gastrointestinal : Complaining of persistent nausea, no vomiting, no diarrhea. Patient complaining of epigastric pain for 3 weeks. Genitourinary : no irregular bleeding, No Dysuria, No Urinary Frequency, No Hematuria, No Urinary Incontinence, No Urgency, No Flank Pain, No Urinary Flow Changes, No Hesitancy Musculoskeletal : No joint pain, No Myalgias, No Joint Swelling Skin : No Skin Lesions, No rash Neuro : No Weakness, No Numbness, No Paresthesias, No Loss of Consciousness, No Dizziness, No Headache Psych : No Anxiety/Panic, No Depression, No SI/HI/AH/VH, No Social Issues, Heme/Lymph: No Bruising, No Bleeding,No Lymphadenopathy Endocrine : No Polyuria, No Polydipsia, No Temperature Intolerance [facility] Past Medical History Medical History Diabetes History of heart attack Neuropathy Rheumatic arteritis Surgical History H/O colonoscopy with polypectomy History of bilateral carpal tunnel release History of cholecystectomy History of esophagogastroduodenoscopy (EGD) Hx of colonoscopy Family History Family History Father No problems noted. Mother No problems noted. Brother No problems noted. Sister Breast cancer Sister No problems noted. Sister No problems noted. Sister No problems noted. Social History Social History (Updated 07/10/20 @ 11:06 by AMARILIS Mascorro) Household Members: None Alcohol intake: never Smoking Status: Never smoker Advance Directives: No Advance Directives Information Provided: Yes Current occupational status: unemployed and disabled Physical Exam Vital Signs: Vital Signs: Last Vital Signs Temp 97.9 F 07/10/20 21:38 Pulse 70 07/10/20 21:38 Resp 20 07/10/20 21:38 BP 158/66 H 07/10/20 21:38 Pulse Ox 100 07/10/20 21:38 Body Mass Index 23.8 Appearance: Alert. Oriented X3. No acute distress. Eyes: Pupils equal, round and reactive to light. ENT: Pharynx normal. Neck: Normal inspection. Neck supple. No lymph nodes noted. No crepitus CVS: Normal heart rate and rhythm. Pulses normal. Normal S1 and S2 Respiratory: No respiratory distress. Breath sounds normal. No Wheezing. No rales Abdomen: Soft , tender to palpation in epigastric area, No rigidity. No distention. good BS x4 Skin: Skin warm and dry. Seems pale. Normal skin turgor. Extremities: No lower extremity edema. No lower extremity edema. No Lacerations. No Rash Neuro: Oriented X 3. No motor deficit. No sensory deficit. Moving all extermities. No slurred speech. Course Course Course Narrative: Patient developed itching without a rash in her face after 1 dose of Dilaudid, patient was given Benadryl, symptoms resolved. I discussed the labs and imaging with the patient. Patient does have slightly elevated lipase, however it is chronic for the patient. CT scan does not show pancreatitis. Patient will follow-up with her police inspector. Medical Decision Making Lab Data Result diagrams: 07/10/20 18:48 07/10/20 18:48 Labs: Lab Results 07/10/20 07/10/20 Range/Units 18:48 18:48 WBC 9.4 (4.8-10.8) X10*3/uL RBC 3.67 L (4.20-5.50) X10*6/uL Hgb 11.4 L (12.0-16.0) g/dl Hct 33.7 L (37-47) % MCV 91.8 (80-98) fL MCH 31.1 (27.0-33.0) pg MCHC 33.8 (31.0-35.0) g/dl RDW 12.4 (11.0-16.0) % Plt Count 227 (160-400) X10*3/uL MPV 11.1 (9.4-12.3) fL Immature Gran % (Auto) 0.2 (0.0-0.4) % Neut % (Auto) 49.0 (45-73) % Lymph % (Auto) 38.1 (20-40) % [place] % (Auto) 8.0 (2-11) % Eos % (Auto) 3.8 (0-4) % Baso % (Auto) 0.9 (0-2) % Lymph # (Auto) 3.6 (1.2-4.9) X10*3/uL [place] # (Auto) 0.8 (0.1-1.2) X10*3/uL Eos # (Auto) 0.4 (0.0-0.4) X10*3/uL Baso # (Auto) 0.1 (0.0-0.2) X10*3/uL Abs Immat Gran (auto) 0.02 (0.00-0.03) X10*3/uL Absolute Neuts (auto) 4.6 (2.0-8.3) X10*3/uL Absolute Nucleated RBC 0.000 (0.0-0.012) X10*3/uL Nucleated RBC % (auto) 0.0 (0.0-0.2) /100WBC Sodium 137 (135-145) mmol/L Potassium 4.0 (3.3-5.1) mmol/L Chloride 100 (96-108) mmol/L Carbon Dioxide 27 (22-29) mmol/L Anion Gap 14 (12-20) BUN 14 (9-16) mg/dL Creatinine 0.83 (0.5-1.4) mg/dL Estim Creat Clear Calc 52.7 Estimated GFR > 60 Random Glucose 120 H (60-115) mg/dL Calcium 10.0 D (8.4-10.2) mg/dL Total Bilirubin 0.5 (0.0-1.0) mg/dL Direct Bilirubin 0.2 (0.0-0.5) mg/dL AST 17 (5-31) U/L ALT 8 (0-31) U/L Alkaline Phosphatase 69 (39-117) U/L Total Protein 7.1 (6.5-8.0) g/dL Albumin 4.4 (3.5-5.0) g/dL Lipase 127 H (8-78) U/L Imaging Data CT scan - abdomen: Radiologist's impression: Visualized lung bases demonstrate mild dependent atelectasis. The liver demonstrates normal size, contour and attenuation. The gallbladder is surgically absent. The pancreas, spleen and adrenal glands are unremarkable. Symmetrically enhancing kidneys. No hydronephrosis bilaterally. The stomach is relatively decompressed and therefore not optimally characterized. Normal caliber loops of small bowel. There is a moderate to large stool burden throughout the colon. Normal appendix. Nonaneurysmal abdominal aorta which demonstrates mild to moderate atherosclerotic disease. No retroperitoneal lymphadenopathy. The bladder is well-distended. There is suggestion of possible thickening along the anterolateral left bladder wall, nonspecific. Unremarkable CT appearance of the uterus. No gross free pelvic fluid. No gross free pelvic fluid. No inguinal lymphadenopathy. Diffuse osteopenia. Mild degenerative changes of the spine. CT/CT abdomen pelvis w con IMPRESSION: 1. Moderate to large stool burden throughout the colon suggesting constipation. 2. Possible thickening along the anterolateral left bladder wall. This is a nonspecific finding and may be secondary to incomplete distention of the bladder. Clinical correlation is recommended. Further evaluation with direct inspection as clinically indicated. Discharge Plan Discharge Clinical Impression: Upper abdominal pain Patient Disposition: Home, Self-Care Instructions: Abdominal Pain (ED) Additional Instructions: Please follow-up with your police inspector. Also, please follow-up with your primary care physician tomorrow. If you have any worsening or new symptoms, please return to the emergency room or call 911 Prescriptions: No Action Creon 24,000-76,000 -120,000 unit capsule,delayed release(DR/EC) 1 cap PO TID Qty: 90 RF: 2 ondansetron HCl [Zofran] 4 mg tablet 4 mg PO BID-TID PRN (Reason: nausea and vomiting) 30 Days Qty: 90 RF: 1 cholestyramine (with sugar) 4 gram powder See Rx Instructions PO BID 30 Days Qty: 378 RF: 3 omeprazole 40 mg capsule,delayed release(DR/EC) 40 mg PO BID 30 Days Qty: 60 RF: 3
[2020-07-10] MEDS: 0.9 % Sodium Chloride 1,000 ML 999 ML IVCONT (18:49)
[2020-07-10] MEDS: Famotidine/PF 20 MG/2 ML VIAL IVPUSH (18:53)
[2020-07-10 18:54] LABS: MANUAL DIFF FLAG NO
[2020-07-10 18:56] LABS: Basophils Absolute Auto 0.1 X10*3/uL (0.0-0.2); Basophils Percent Auto 0.9 % (0-2); Eosinophils Absolute Auto 0.4 X10*3/uL (0.0-0.4); Eosinophils Percent Auto 3.8 % (0-4); Hematocrit 33.7 % (37-47); Hemoglobin 11.4 g/dl (12.0-16.0); Imm Gran Abs Auto 0.02 X10*3/uL (0.00-0.03); Imm Gran Pct Auto 0.2 % (0.0-0.4); Lymphocytes Absolute Auto 3.6 X10*3/uL (1.2-4.9); Lymphocytes Percent Auto 38.1 % (20-40); Mean Corpuscular HGB Conc 33.8 g/dl (31.0-35.0); Mean Corpuscular Hemoglobin 31.1 pg (27.0-33.0); Mean Corpuscular Volume 91.8 fL (80-98); Mean Platelet Volume 11.1 fL (9.4-12.3); Monocytes Absolute Auto 0.8 X10*3/uL (0.1-1.2); Neutrophils Absolute Auto 4.6 X10*3/uL (2.0-8.3); Platelet Count 227 X10*3/uL (160-400); Red Blood Count 3.67 X10*6/uL (4.20-5.50); Red Cell Distribution Width 12.4 % (11.0-16.0); White Blood Count 9.4 X10*3/uL (4.8-10.8)
[2020-07-10 19:25] LABS: Alanine Aminotransferase 8 U/L (0-31); Albumin Level 4.4 g/dL (3.5-5.0); Alkaline Phosphatase 69 U/L (39-117); Anion Gap 14 (12-20); Aspartate Amino Transferase 17 U/L (5-31); Bilirubin Direct 0.2 mg/dL (0.0-0.5); Bilirubin Total 0.5 mg/dL (0.0-1.0); Blood Urea Nitrogen 14 mg/dL (9-16); Carbon Dioxide 27 mmol/L (22-29); Chloride 100 mmol/L (96-108); Creatinine Clr Calc Pharmacy 52.7; Estimated Glomerular Filt Rate > 60; Glucose Random 120 mg/dL (60-115); Lipase 127 U/L (8-78); Sodium 137 mmol/L (135-145); Total Protein 7.1 g/dL (6.5-8.0)
[2020-07-10 20:26] VITALS: BP 138/57; PULSE 67; RESP 12; TEMP 36.5; O2SAT 99
[2020-07-10 20:28] VITALS: RESP 16
[2020-07-10] MEDS: HYDROmorphone HCl 1 MG/ML SYRINGE IVPUSH (20:28)
[2020-07-10 20:36] VITALS: BP 143/59; RESP 16; O2SAT 100
[2020-07-10] MEDS: iohexoL 350 MG/ML 100 ML INFUS..BTL IV (21:11)
[2020-07-10 21:38] VITALS: BP 158/66; PULSE 70; RESP 20; TEMP 36.6; O2SAT 100
[2020-07-10] MEDS: diphenhydrAMINE HCL 50 MG/ML VIAL IVPUSH (22:09)
[2020-07-10 22:37] LABS: Glucose, Whole Blood 80 mg/dL (60-115)
== END 2020-07-10 23:06 | disposition home or self-care (01) ==
PROVIDERS: Emergency Provider Emergency Medicine
DX: R10.13 Epigastric pain (principal); Z90.49 Acquired absence of other specified parts of digestive tract; E11.9 Type 2 diabetes mellitus without complications; Z79.4 Long term (current) use of insulin; L29.9 Pruritus, unspecified; T40.2X5A Adverse effect of other opioids, initial encounter; Y92.230 Patient room in hospital as the place of occurrence of the external cause
CPT/HCPCS: 36415; 74177; 80048; 80076; 82947; 83690; 85025; 93005; 96361; 96374; 96375; 99284; J1170; J1200; Q9967

== ENCOUNTER → 2020-07-19 13:50 | Outpatient (BNVA) | payer MEDICARE, SELFPAY | PROVIDERS: Visit Provider Nurse Practitioner | DX: Z13.89 Encounter for screening for other disorder (principal) | CPT/HCPCS: 99212 ==

== ENCOUNTER 2020-08-05 10:39 | Outpatient (REF) | payer MEDICARE, SELFPAY ==
--- NOTE | ~2020-08-05 | MR_ITS ---
EXAMINATION: MR ABDOMEN WITHOUT AND WITH CONTRAST CLINICAL INFORMATION: Abdominal pain. Abnormal liver function tests COMPARISON: Previous CT of the abdomen and pelvis most recent 04/09/2021 TECHNIQUE: MR abdomen was performed without and with use of 5.5 mL intravenous Gadavist gadolinium contrast. Postcontrast images are performed in multiphase dynamic sequences. Imaging was performed in 3 planes. FINDINGS: LUNG BASES: The visualized lung bases are unremarkable. LIVER, GALLBLADDER, AND BILIARY TREE: The liver is normal in size, smooth in contour, and normal in signal. No focal hepatic lesion or biliary ductal dilatation is present. The gallbladder is nondistended identified. PANCREAS: Unremarkable. SPLEEN: Normal. ADRENAL GLANDS: Normal. KIDNEYS AND URETERS: The kidneys are normal in size, shape, and enhance symmetrically. No hydronephrosis. No perinephric stranding. GASTROINTESTINAL TRACT: There is stool throughout the colon suggestive of constipation. No bowel obstruction. No ascites or fluid collection. ABDOMINAL WALL: No significant hernia is appreciated. LYMPH NODES: No lymphadenopathy. VASCULAR: Unremarkable. OSSEOUS STRUCTURES: Marrow signal normal. MR/MR abdomen wo/w con IMPRESSION: Normal-appearing liver. Stool throughout the colon suggestive of constipation.
--- NOTE | ~2020-08-05 | XR_ITS ---
EXAMINATION: XR CHEST CLINICAL INFORMATION: Abnormal weight loss COMPARISON: Previous chest x-ray March 2020 TECHNIQUE: 2 views of the chest were obtained. FINDINGS: The cardiac and mediastinal contours are stable. There is an oval-shaped density projects over the lateral right lung, anterior fourth and posterior seventh ribs. This measures 5 x 10 mm. This is similar to prior chest x-rays for example March 2019 and January 2015 and may represent a bone island in the right posterior seventh rib. The lungs are otherwise clear. There is no pleural effusion or pneumothorax. There are degenerative changes of the spine. XR/XR chest 2V IMPRESSION: 5 x 10 mm density projecting over the lateral right lung. This can be seen on a old chest x-rays for example March 2019 and may represent a bone island in the rib as opposed to pulmonary nodule.
== END 2020-08-05 10:40 | disposition home or self-care (01) ==
LOC: HO.MRI 10:39
PROVIDERS: Absent Provider Internal Medicine; PCP Internal Medicine; Visit Provider Nurse Practitioner
DX: R10.10 Upper abdominal pain, unspecified (principal); R11.2 Nausea with vomiting, unspecified; R74.8 Abnormal levels of other serum enzymes
CPT/HCPCS: 71046; 74183; A9585

== ENCOUNTER → 2020-08-07 07:35 | Outpatient (REF) | payer MEDICARE, SELFPAY ==
--- NOTE | ~2020-08-07 | NM_ITS ---
EXAMINATION: NM RADIONUCLIDE SOLID FOOD GASTRIC EMPTYING 4-HOUR STUDY CLINICAL INFORMATION: Nausea with vomiting. COMPARISON: None TECHNIQUE: A standard meal consisting of 4 oz of Egg Beaters brand tagged with 1.0 microcuries Tc-99m Sulfur Colloid, 6 oz water and 2 slices of toast with jelly was administered orally to the patient. Images were obtained using a dual head gamma camera in the anterior and posterior projections over of the stomach immediately post ingestion and at hourly intervals up to 4 hours post ingestion. The anterior and posterior counts at each time interval were averaged using the geometric mean and expressed as percentage of the immediate post ingestion counts. FINDINGS: There is good visualization of activity in the stomach immediately post ingestion. As the study progresses, there is good clearance of activity from the stomach and visualization of progressively increasing small bowel activity. By the end of the study, there is almost no retention noted in the stomach. Retention in the stomach at each time interval was: 1 hour 73% (normal 37%-90%) 2 hours 33% (normal 30%-60%) 3 hours 6% 4 hours 2% (normal 0%-10%) NM/NM gastric emptying study IMPRESSION: Normal 4-hour solid food gastric emptying study.
== END ==
LOC: HO.NUCMED 07:35
PROVIDERS: Visit Provider Nurse Practitioner
DX: R11.2 Nausea with vomiting, unspecified (principal)
CPT/HCPCS: 78264; A9541

== ENCOUNTER → 2020-08-12 09:36 | Outpatient (BNVA) | payer MEDICARE, SELFPAY | PROVIDERS: PCP Internal Medicine; Visit Provider Nurse Practitioner | DX: R10.10 Upper abdominal pain, unspecified (principal); K59.00 Constipation, unspecified; R74.8 Abnormal levels of other serum enzymes; K21.9 Gastro-esophageal reflux disease without esophagitis; R19.7 Diarrhea, unspecified; K91.5 Postcholecystectomy syndrome; Z79.899 Other long term (current) drug therapy | CPT/HCPCS: 99212 ==

== ENCOUNTER 2020-08-30 14:06 | Day surgery (SDC) | payer MEDICARE, SELFPAY ==
[2020-08-26 14:27] VITALS: BMI 26.5
[2020-08-26 14:36] VITALS: BMI 26.5
--- NOTE | 2020-08-28 14:21 | HO.ANESPROP2 ---
Documented by User: Gypsy Foy 08/28/20 14:25 HPI - Anesthesia Eval Consult details Narrative: 64yo F for Upper Endoscopy PMFSH Active Problems Active Problems: All Active Problems (Updated 08/26/20 @ 15:03 by Mague Oseguera) Fracture of proximal end of both humeri with routine healing (Acute) GERD (gastroesophageal reflux disease) (Acute) Pancreatic insufficiency (Acute) Diarrhea (Acute) Nausea and vomiting (Acute) Post-cholecystectomy syndrome (Acute) Upper abdominal pain (Acute) Elevated lipase (Acute) Constipation (Acute) Past Medical History Medical History Diabetes GERD (gastroesophageal reflux disease) History of heart attack Neuropathy Pancreatic insufficiency Rheumatic arteritis Family History Family History Father No problems noted. Mother No problems noted. Brother No problems noted. Sister Breast cancer Sister No problems noted. Sister No problems noted. Sister No problems noted. Surgical History Surgical History H/O colonoscopy with polypectomy History of bilateral carpal tunnel release History of cholecystectomy History of esophagogastroduodenoscopy (EGD) Hx of colonoscopy Hx of heart artery stent Social History Social History Household Members: None Alcohol intake: current Alcohol intake frequency: does not drink Smoking Status: Never smoker Use of substances other than those prescribed or required for medical reasons: No Have you been hit, kicked, punched, or otherwise hurt by someone within the past year? If so, by whom?: No Advance Directives Information Provided: No Recently lost weight without trying: No Current occupational status: unemployed and disabled Meds Allergies Allergy/AdvReac Type Severity Reaction Status Date / Time cortisone [CORTISONE] Allergy Intermediate RASH Verified 07/19/20 13:51 hydrocortisone Allergy Intermediate Rash Verified 08/26/20 14:41 morphine [Morphine] Allergy Intermediate RASH, Verified 07/19/20 13:51 ITCHING oxycodone [From Percocet] Allergy Intermediate Nausea and Verified 08/26/20 14:41 Vomiting Penicillins Allergy Intermediate ITCHING Verified 08/26/20 14:41 sulfamethoxazole Allergy Intermediate Rash Verified 08/26/20 14:41 [From Bactrim] trimethoprim [From Bactrim] Allergy Intermediate Rash Verified 08/26/20 14:41 Home Medications Medication Instructions Recorded Confirmed Last Taken Type ascorbate calcium (vitamin C) PO 02/12/20 Unknown History atorvastatin 80 mg tablet 80 mg PO DAILY 02/12/20 08/26/20 Unknown History cholecalciferol (vitamin D3) 250 250 mcg PO DAILY 02/12/20 08/26/20 Unknown History mcg (10,000 unit) capsule gabapentin 600 mg tablet 600 mg PO BID 02/12/20 08/26/20 Unknown History hydrochlorothiazide 25 mg tablet 25 mg PO DAILY 02/12/20 08/26/20 Unknown History hydroxyzine pamoate 25 mg capsule 25 mg PO BEDTIME 02/12/20 08/26/20 Unknown History insulin glargine 100 unit/mL 10 unit SUBCUT DAILY 02/12/20 Unknown History subcutaneous solution lisinopril 40 mg tablet 40 mg PO DAILY 02/12/20 08/26/20 Unknown History loperamide 2 mg capsule 2 mg PO Q6H PRN 02/12/20 08/26/20 Unknown History metformin 500 mg tablet 500 mg PO DAILY 02/12/20 08/26/20 Unknown History metoprolol tartrate 25 mg tablet 12.5 mg PO BID 02/12/20 08/26/20 Unknown History albuterol sulfate 90 mcg/actuation 90 mcg INHALATION Q4H PRN 07/10/20 08/26/20 Unknown History aerosol inhaler aspirin 81 mg tablet,delayed 81 mg PO DAILY 07/10/20 08/26/20 Unknown History release trazodone 100 mg tablet 100 mg PO BEDTIME 07/19/20 08/26/20 Unknown History Exam Exam Date and Time: August 28, 2020 1421 Height,Weight and Vital Signs: Height 5 ft 3 in Weight 68.039 kg Pertinent Lab Results Pertinent Lab Results: Laboratory Tests 07/10/20 07/10/20 18:48 18:48 WBC 9.4 Hgb 11.4 L Hct 33.7 L Plt Count 227 Sodium 137 Potassium 4.0 Chloride 100 Carbon Dioxide 27 BUN 14 Creatinine 0.83 Assessment and Plan Assessment Anesthesia Assessment: Chart Reviewed Documented by User: Lien Renner 08/30/20 14:21 [facility] Past Medical History Medical History Diabetes GERD (gastroesophageal reflux disease) History of heart attack Neuropathy Pancreatic insufficiency Rheumatic arteritis Family History Family History Father No problems noted. Mother No problems noted. Brother No problems noted. Sister Breast cancer Sister No problems noted. Sister No problems noted. Sister No problems noted. Surgical History Surgical History H/O colonoscopy with polypectomy History of bilateral carpal tunnel release History of cholecystectomy History of esophagogastroduodenoscopy (EGD) Hx of colonoscopy Hx of heart artery stent Social History Social History Household Members: None Alcohol intake: current Alcohol intake frequency: does not drink Smoking Status: Never smoker Use of substances other than those prescribed or required for medical reasons: No Have you been hit, kicked, punched, or otherwise hurt by someone within the past year? If so, by whom?: No Advance Directives Information Provided: No Recently lost weight without trying: No Current occupational status: unemployed and disabled Meds Allergies Allergy/AdvReac Type Severity Reaction Status Date / Time cortisone [CORTISONE] Allergy Intermediate RASH Verified 07/19/20 13:51 hydrocortisone Allergy Intermediate Rash Verified 08/26/20 14:41 morphine [Morphine] Allergy Intermediate RASH, Verified 07/19/20 13:51 ITCHING oxycodone [From Percocet] Allergy Intermediate Nausea and Verified 08/26/20 14:41 Vomiting Penicillins Allergy Intermediate ITCHING Verified 08/26/20 14:41 sulfamethoxazole Allergy Intermediate Rash Verified 08/26/20 14:41 [From Bactrim] trimethoprim [From Bactrim] Allergy Intermediate Rash Verified 08/26/20 14:41 Home Medications Medication Instructions Recorded Confirmed Last Taken Type ascorbate calcium (vitamin C) PO 02/12/20 Unknown History atorvastatin 80 mg tablet 80 mg PO DAILY 02/12/20 08/26/20 Unknown History cholecalciferol (vitamin D3) 250 250 mcg PO DAILY 02/12/20 08/26/20 Unknown History mcg (10,000 unit) capsule gabapentin 600 mg tablet 600 mg PO BID 02/12/20 08/26/20 Unknown History hydrochlorothiazide 25 mg tablet 25 mg PO DAILY 02/12/20 08/26/20 Unknown History hydroxyzine pamoate 25 mg capsule 25 mg PO BEDTIME 02/12/20 08/26/20 Unknown History insulin glargine 100 unit/mL 10 unit SUBCUT DAILY 02/12/20 Unknown History subcutaneous solution lisinopril 40 mg tablet 40 mg PO DAILY 02/12/20 08/26/20 Unknown History loperamide 2 mg capsule 2 mg PO Q6H PRN 02/12/20 08/26/20 Unknown History metformin 500 mg tablet 500 mg PO DAILY 02/12/20 08/26/20 Unknown History metoprolol tartrate 25 mg tablet 12.5 mg PO BID 02/12/20 08/26/20 Unknown History albuterol sulfate 90 mcg/actuation 90 mcg INHALATION Q4H PRN 07/10/20 08/26/20 Unknown History aerosol inhaler aspirin 81 mg tablet,delayed 81 mg PO DAILY 07/10/20 08/26/20 Unknown History release trazodone 100 mg tablet 100 mg PO BEDTIME 07/19/20 08/26/20 Unknown History Exam Airway Mallampati Class: II TM Dist: >3cm Neck ROM: Full Assessment and Plan Assessment Anesthesia Assessment: Anesthesia Plan Discussed and Chart Reviewed Final Anesthetic Review NPO: Yes ASA Class: III Final Preanesthetic Review: No Changes in Pt Med Stat, Meds/Allgs Chart Reviewed, Consent Obtained/Reviewed and Anes Risks/Benef Reviewed Patient Risk: Intermediate Procedure Risk: Low Assessment/Block/Sedation in SS: Assess/Block/Sedation-SS Anesthetic Plan Anesthetic Plan: MAC: Disposition: Standard PACU
[2020-08-30 14:35] VITALS: BP 128/65; PULSE 70; RESP 18; TEMP 36.1; O2SAT 100
--- NOTE | 2020-08-30 14:36 | W.PM.OPN ---
Operative Note Operative Note Date of Service: 08/30/20 Narrative: Pre-op diagnosis: Chronic abdominal pain Post-op diagnosis: other (Gastritis, duodenal nodule) Procedure: FLEXIBLE TRANSORAL UPPER GASTROINTESTINAL ENDOSCOPY WITH BIOPSIES Consent: Indications for the procedure and potential complications of bleeding, perforation, reaction to medications and missed diagnosis were discussed with the patient and informed consent was obtained. Instrument: Olympus GIF H 190 mid size upper endoscope Monitoring: Vital signs and clinical assessment, continuous EKG monitoring, Pulse oximetry, Carbon Dioxide monitoring and blood pressure monitoring were done throughout the procedure. Procedure: The patient was placed in the left lateral decubitis position and pre-procedure medications were administered and a bite block was placed. The endoscope was inserted into the mouth and advanced under direct vision to the third part of duodenum. A careful inspection was made as the upper endoscope was withdrawn including a retroflexed examination of the proximal stomach; Findings and interventions are described below. Findings: Larynx: Normal Esophagus: GE junction at 35 cms. No esophagitis or [place] Stomach: Mild diffuse gastric erythema. Biopsies were obtained. Grade 2 flap valve on retroflexed examination of the cardia. Duodenum: Normal bulb. A 4-5 mm benign appearing nodule in the floor of and descending duodenum - biopsied. Biopsies were obtained from 3rd part of the duodenum to check for celiac sprue. Intervention: Biopsies as noted above Impression and Post Procedure Diagnosis: Endoscopy Findings: STOMACH: Gastritis DUODENUM: Benign-appearing nodule in the descending duodenum. Plan: Await pathology results Patient has an appointment on 09/19/20 in the GI Clinic with Van Guzman M.D.-. Above findings were reviewed with the patient and GERD and [Gastritis] handouts were given in the discharge area Surgeon: Van Guzman MD Anesthesia: MAC (Fay Tejada, ASIF) Explosive Ordnance Disposal Technician: Arthur Lerner Estimated blood loss (mL): 0 Pathology: other (A. Small-bowel, B. Duodenal nodule, C. Gastric antrum) Condition: stable Disposition: PACU
--- NOTE | 2020-08-30 14:36 | MHC.SHP ---
Pre-Procedural Eval Section A The patient is an INPATIENT: No Changes since office visit: Yes Changes in Medication and Yes Patient answered all questions; No Cold of Flu in the past 2 weeks and No New Medical Problems The History & Physical has been completed within 30 days and I have reviewed it.: Yes Section B Chief Complaint: Nausea with vomiting Allergies: Allergies Allergy/AdvReac Type Severity Reaction Status Date / Time cortisone [CORTISONE] Allergy Intermediate RASH Verified 07/19/20 13:51 hydrocortisone Allergy Intermediate Rash Verified 08/26/20 14:41 morphine [Morphine] Allergy Intermediate RASH, Verified 07/19/20 13:51 ITCHING oxycodone [From Percocet] Allergy Intermediate Nausea and Verified 08/26/20 14:41 Vomiting Penicillins Allergy Intermediate ITCHING Verified 08/26/20 14:41 sulfamethoxazole Allergy Intermediate Rash Verified 08/26/20 14:41 [From Bactrim] trimethoprim [From Bactrim] Allergy Intermediate Rash Verified 08/26/20 14:41 Exam Surgical H&P Exam: Normal: Heart, Normal: Lungs, Normal: Extremities and Normal: Abdomen Plan Diagnosis/Plan: Unchanged I have reviewed the history and physical and performed a pertinent physical examination on my patient. No changes have occurred unless specified.
[2020-08-30 14:38] LABS: Glucose, Whole Blood 107 mg/dL (60-115)
[2020-08-30] MEDS: Lactated Ringers 1,000 ML 100 ML IVCONT (14:39)
[2020-08-30 15:05] VITALS: BP 90/45; PULSE 63; RESP 20; TEMP 36.8; O2SAT 100
[2020-08-30 15:26] VITALS: BP 111/55; PULSE 63; RESP 16; TEMP 37; O2SAT 96
== END 2020-08-30 15:53 | disposition home or self-care (01) ==
PROVIDERS: Visit Provider Internal Medicine Gastroenterology
PROC: 0DJ08ZZ Inspection of Upper Intestinal Tract, Via Natural or Artificial Opening Endoscopic (ICD-10-PCS; CPT 43235; principal; 2020-08-30 15:00)
DX: K29.50 Unspecified chronic gastritis without bleeding (principal); K29.80 Duodenitis without bleeding; K21.9 Gastro-esophageal reflux disease without esophagitis; Z90.49 Acquired absence of other specified parts of digestive tract; E11.9 Type 2 diabetes mellitus without complications; G62.9 Polyneuropathy, unspecified; K86.89 Other specified diseases of pancreas; I00 Rheumatic fever without heart involvement; Z79.4 Long term (current) use of insulin; Z79.82 Long term (current) use of aspirin; Z79.899 Other long term (current) drug therapy
CPT/HCPCS: 43239; 82947; 88305; 88342

== ENCOUNTER 2020-09-12 07:05 | Outpatient (REF) | payer MEDICARE, SELFPAY ==
[2020-09-12 08:17] LABS: MANUAL DIFF FLAG NO
[2020-09-12 08:25] LABS: Basophils Absolute Auto 0.1 X10*3/uL (0.0-0.2); Basophils Percent Auto 1.5 % (0-2); Eosinophils Absolute Auto 0.8 X10*3/uL (0.0-0.4); Eosinophils Percent Auto 12.4 % (0-4); Hematocrit 32.7 % (37-47); Hemoglobin 11.1 g/dl (12.0-16.0); Imm Gran Abs Auto 0.01 X10*3/uL (0.00-0.03); Imm Gran Pct Auto 0.2 % (0.0-0.4); Lymphocytes Absolute Auto 2.8 X10*3/uL (1.2-4.9); Lymphocytes Percent Auto 45.7 % (20-40); Mean Corpuscular HGB Conc 33.9 g/dl (31.0-35.0); Mean Corpuscular Hemoglobin 30.8 pg (27.0-33.0); Mean Corpuscular Volume 90.8 fL (80-98); Mean Platelet Volume 11.9 fL (9.4-12.3); Monocytes Absolute Auto 0.6 X10*3/uL (0.1-1.2); Monocytes Percent Auto 10.1 % (2-11); Neutrophils Absolute Auto 1.8 X10*3/uL (2.0-8.3); Neutrophils Percent Auto 30.1 % (45-73); Platelet Count 228 X10*3/uL (160-400); Red Cell Distribution Width 12.3 % (11.0-16.0)
[2020-09-12 08:52] LABS: C Reactive Protein 0.02 mg/dL (< or = 0.50)
[2020-09-12 09:38] LABS: Erythrocyte Sedimentation Rate 12 MM/HR (0-20); Lactate Dehydrogenase 126 U/L (122-220)
[2020-09-13 22:43] LABS: Prot Elec - Alpha1 0.2 g/dL (0.2-0.3); Prot Elec - Alpha2 0.7 g/dL (0.5-0.9); Prot Elec - Beta 1 0.3 g/dL (0.4-0.6); Prot Elec - Beta 2 0.3 g/dL (0.2-0.5); Prot Elec - Gamma 0.9 g/dL (0.8-1.7); Prot Elec - Total Protein 6.4 g/dL (6.1-8.1)
[2020-09-14 12:02] LABS: PEU-Protein Creat Ratio Rand NOTE (0.021-0.161); PEU-Rand. Prot/Creat Ratio NOTE mg/g creat (21-161); PEU-Random Ur. Gamma Globulin 0 %; PEU-Random Urine A1 Globulin 0 %; PEU-Random Urine A2 Globulin 0 %; PEU-Random Urine Albumin 0 %; PEU-Random Urine Beta Globulin 0 %; PEU-Random Urine Creatinine 35 mg/dL (20-275); PEU-Random Urine Protein <4 mg/dL (5-24)
== END 2020-09-12 07:06 | disposition home or self-care (01) ==
LOC: HO.LAB 07:05
PROVIDERS: PCP Internal Medicine; Visit Provider Internal Medicine
DX: D64.9 Anemia, unspecified (principal); R63.4 Abnormal weight loss
CPT/HCPCS: 82570; 83615; 84155; 84156; 84165; 84166; 85025; 85652; 86140

== ENCOUNTER 2020-09-19 14:44 | Outpatient (REF) | payer MEDICARE, SELFPAY ==
[2020-09-19 17:06] LABS: MANUAL DIFF FLAG NO
[2020-09-19 17:08] LABS: Basophils Absolute Auto 0.1 X10*3/uL (0.0-0.2); Basophils Percent Auto 1.6 % (0-2); Eosinophils Absolute Auto 0.8 X10*3/uL (0.0-0.4); Eosinophils Percent Auto 12.5 % (0-4); Hematocrit 33.8 % (37-47); Hemoglobin 11.4 g/dl (12.0-16.0); Imm Gran Abs Auto 0.02 X10*3/uL (0.00-0.03); Imm Gran Pct Auto 0.3 % (0.0-0.4); Lymphocytes Absolute Auto 2.4 X10*3/uL (1.2-4.9); Lymphocytes Percent Auto 38.7 % (20-40); Mean Corpuscular HGB Conc 33.7 g/dl (31.0-35.0); Mean Corpuscular Hemoglobin 30.6 pg (27.0-33.0); Mean Corpuscular Volume 90.9 fL (80-98); Mean Platelet Volume 11.3 fL (9.4-12.3); Monocytes Absolute Auto 0.5 X10*3/uL (0.1-1.2); Monocytes Percent Auto 8.1 % (2-11); Neutrophils Absolute Auto 2.4 X10*3/uL (2.0-8.3); Neutrophils Percent Auto 38.8 % (45-73); Platelet Count 229 X10*3/uL (160-400); Red Blood Count 3.72 X10*6/uL (4.20-5.50); Red Cell Distribution Width 12.4 % (11.0-16.0); White Blood Count 6.3 X10*3/uL (4.8-10.8)
[2020-09-19 17:35] LABS: Amylase 51 U/L (28-100); C Reactive Protein 0.03 mg/dL (< or = 0.50); Lactate Dehydrogenase 135 U/L (122-220)
[2020-09-19 17:46] LABS: Lipase 165 U/L (8-78)
[2020-09-20 15:57] LABS: Immunoglobulin G Subclass 1 499 mg/dL (382-929); Immunoglobulin G Subclass 2 365 mg/dL (241-700); Immunoglobulin G Subclass 3 32 mg/dL (22-178); Immunoglobulin G Subclass 4 7.5 mg/dL (4-86); Immunoglobulin G Total 1005 mg/dL (600-1540)
[2020-09-24 00:37] LABS: Zinc 65 mcg/dL (60-130)
== END 2020-09-19 14:45 | disposition home or self-care (01) ==
LOC: HO.LAB 14:44
PROVIDERS: Nurse Practitioner; PCP Internal Medicine; Referring Provider Internal Medicine; Visit Provider Internal Medicine Gastroenterology
DX: R10.10 Upper abdominal pain, unspecified (principal); K59.09 Other constipation; E11.9 Type 2 diabetes mellitus without complications; K86.89 Other specified diseases of pancreas; R19.7 Diarrhea, unspecified; R11.2 Nausea with vomiting, unspecified; Z79.899 Other long term (current) drug therapy; Z79.4 Long term (current) use of insulin
CPT/HCPCS: 36415; 82150; 82784; 83615; 83690; 84630; 85025; 86140; 99212

== ENCOUNTER 2020-09-24 11:40 | Outpatient (REF) | payer MEDICARE, SELFPAY ==
[2020-10-02 23:27] LABS: Pancreatic Elastase-1 >500 mcg/g
== END 2020-09-24 11:41 | disposition home or self-care (01) ==
LOC: HO.LNP 11:40
PROVIDERS: Referring Provider Internal Medicine Gastroenterology; Visit Provider Nurse Practitioner
DX: K86.89 Other specified diseases of pancreas (principal); R10.10 Upper abdominal pain, unspecified; R11.2 Nausea with vomiting, unspecified; R19.7 Diarrhea, unspecified
CPT/HCPCS: 82656; 87045; 87046; 87324; 87338; 87449

== ENCOUNTER 2020-10-11 11:04 | Day surgery (SDC) | payer MEDICARE, SELFPAY ==
[2020-10-07 10:39] VITALS: BMI 23.9
--- NOTE | 2020-10-07 14:57 | P.CONAN_ITS ---
Documented by User: Gypsy Aguilarney 10/10/20 11:14 HPI - Anesthesia Eval Consult details Narrative: 65yo F for Colonoscopy s/p EGD 08/2020 with TIVA *multiple med allergies* PMFSH Active Problems Active Problems: All Active Problems (Updated 09/19/20 @ 16:22 by Van Guzman MD) Fracture of proximal end of both humeri with routine healing (Acute) Diarrhea (Acute) Nausea and vomiting (Acute) Post-cholecystectomy syndrome (Acute) Upper abdominal pain (Acute) Elevated lipase (Acute) Constipation (Acute) Chronic constipation (Acute) Pancreatic insufficiency (Acute) GERD (gastroesophageal reflux disease) (Acute) Past Medical History Medical History (Updated 09/19/20 @ 16:22 by Van Guzman MD) Diabetes GERD (gastroesophageal reflux disease) History of heart attack Neuropathy Pancreatic insufficiency Rheumatic arteritis Family History Family History Father No problems noted. Mother No problems noted. Brother No problems noted. Sister Breast cancer Sister No problems noted. Sister No problems noted. Sister No problems noted. Surgical History Surgical History (Updated 10/07/20 @ 10:16 by Mague Oseguera) H/O colonoscopy with polypectomy History of bilateral carpal tunnel release History of cholecystectomy History of esophagogastroduodenoscopy (EGD) Hx of colonoscopy Hx of heart artery stent Social History Social History (Updated 10/07/20 @ 10:39 by Mague Oseguera) Household Members: None Are you a primary intensive care nurse to a significant other at home: No Do you presently have visiting nurse or other home services: No Use of substances other than those prescribed or required for medical reasons: No Have you been hit, kicked, punched, or otherwise hurt by someone within the past year? If so, by whom?: No Advance Directives Information Provided: No Recently lost weight without trying: No Nutrition Risks: No Nutritional Risk Current occupational status: unemployed and disabled Meds Allergies Allergy/AdvReac Type Severity Reaction Status Date / Time cortisone [CORTISONE] Allergy Intermediate RASH Verified 09/19/20 14:49 hydrocortisone Allergy Intermediate Rash Verified 09/19/20 14:49 morphine [Morphine] Allergy Intermediate RASH, Verified 09/19/20 14:49 ITCHING oxycodone [From Percocet] Allergy Intermediate Nausea and Verified 09/19/20 14:49 Vomiting Penicillins Allergy Intermediate ITCHING Verified 09/19/20 14:49 sulfamethoxazole Allergy Intermediate Rash Verified 09/19/20 14:49 [From Bactrim] trimethoprim [From Bactrim] Allergy Intermediate Rash Verified 09/19/20 14:49 Home Medications Medication Instructions Recorded Confirmed Last Taken Type ascorbate calcium (vitamin C) 1 tab PO DAILY 02/12/20 10/07/20 Unknown History atorvastatin 80 mg tablet 80 mg PO DAILY 02/12/20 10/07/20 Unknown History cholecalciferol (vitamin D3) 250 250 mcg PO DAILY 02/12/20 10/07/20 Unknown History mcg (10,000 unit) capsule gabapentin 600 mg tablet 600 mg PO BID 02/12/20 10/07/20 Unknown History hydrochlorothiazide 25 mg tablet 25 mg PO DAILY 02/12/20 10/07/20 Unknown History hydroxyzine pamoate 25 mg capsule 25 mg PO BEDTIME 02/12/20 10/07/20 Unknown History insulin glargine 100 unit/mL 10 unit SUBCUT DAILY 02/12/20 10/07/20 Unknown History subcutaneous solution lisinopril 40 mg tablet 40 mg PO DAILY 02/12/20 10/07/20 Unknown History metformin 500 mg tablet 500 mg PO DAILY 02/12/20 10/07/20 Unknown History metoprolol tartrate 25 mg tablet 12.5 mg PO BID 02/12/20 10/07/20 Unknown History albuterol sulfate 90 mcg/actuation 90 mcg INHALATION Q4H PRN 07/10/20 10/07/20 Unknown History aerosol inhaler aspirin 81 mg tablet,delayed 81 mg PO DAILY 07/10/20 10/07/20 Unknown History release trazodone 100 mg tablet 100 mg PO BEDTIME 07/19/20 10/07/20 Unknown History amlodipine 1 tab PO DAILY 08/30/20 10/07/20 Unknown History Exam Exam Date and Time: October 07, 2020 1457 Height,Weight and Vital Signs: Height 5 ft 3 in Weight 61.235 kg Pertinent Lab Results Pertinent Lab Results: Laboratory Tests 07/10/20 09/19/20 18:48 16:50 WBC 6.3 Hgb 11.4 L Hct 33.8 L Plt Count 229 Sodium 137 Potassium 4.0 Chloride 100 Carbon Dioxide 27 BUN 14 Creatinine 0.83 Narrative Narrative: EKG 06/2020 Vent. Rate : 061 BPM Atrial Rate : 061 BPM P-R Int : 164 ms QRS Dur : 088 ms QT Int : 412 ms P-R-T Axes : -03 054 046 degrees QTc Int : 414 ms Normal sinus rhythm Normal ECG When compared with ECG of 06-APR-2020 18:12, No significant change was found Echo 01/2020: Nml LV function, EF 60-65% Diastolic filling pattern is normal Aortic sclerosis without stenosis Very small mobile echogenic struction on the left coronary cusp Mild pulmonary htn Compared to 2016, more sclerosis of AV Assessment and Plan Assessment Anesthesia Assessment: Chart Reviewed Documented by User: Yajaira Maldonado 10/11/20 11:47 [facility] Past Medical History Medical History (Updated 09/19/20 @ 16:22 by Van Guzman MD) Diabetes GERD (gastroesophageal reflux disease) History of heart attack Neuropathy Pancreatic insufficiency Rheumatic arteritis Family History Family History Father No problems noted. Mother No problems noted. Brother No problems noted. Sister Breast cancer Sister No problems noted. Sister No problems noted. Sister No problems noted. Surgical History Surgical History (Updated 10/07/20 @ 10:16 by Mague Oseguera) H/O colonoscopy with polypectomy History of bilateral carpal tunnel release History of cholecystectomy History of esophagogastroduodenoscopy (EGD) Hx of colonoscopy Hx of heart artery stent Social History Social History (Updated 10/07/20 @ 10:39 by Mague Oseguera) Household Members: None Are you a primary intensive care nurse to a significant other at home: No Do you presently have visiting nurse or other home services: No Use of substances other than those prescribed or required for medical reasons: No Have you been hit, kicked, punched, or otherwise hurt by someone within the past year? If so, by whom?: No Advance Directives Information Provided: No Recently lost weight without trying: No Nutrition Risks: No Nutritional Risk Current occupational status: unemployed and disabled Meds Allergies Allergy/AdvReac Type Severity Reaction Status Date / Time cortisone [CORTISONE] Allergy Intermediate RASH Verified 09/19/20 14:49 hydrocortisone Allergy Intermediate Rash Verified 09/19/20 14:49 morphine [Morphine] Allergy Intermediate RASH, Verified 09/19/20 14:49 ITCHING oxycodone [From Percocet] Allergy Intermediate Nausea and Verified 09/19/20 14:49 Vomiting Penicillins Allergy Intermediate ITCHING Verified 09/19/20 14:49 sulfamethoxazole Allergy Intermediate Rash Verified 09/19/20 14:49 [From Bactrim] trimethoprim [From Bactrim] Allergy Intermediate Rash Verified 09/19/20 14:49 Home Medications Medication Instructions Recorded Confirmed Last Taken Type ascorbate calcium (vitamin C) 1 tab PO DAILY 02/12/20 10/07/20 Unknown History atorvastatin 80 mg tablet 80 mg PO DAILY 02/12/20 10/07/20 Unknown History cholecalciferol (vitamin D3) 250 250 mcg PO DAILY 02/12/20 10/07/20 Unknown History mcg (10,000 unit) capsule gabapentin 600 mg tablet 600 mg PO BID 02/12/20 10/07/20 Unknown History hydrochlorothiazide 25 mg tablet 25 mg PO DAILY 02/12/20 10/07/20 Unknown History hydroxyzine pamoate 25 mg capsule 25 mg PO BEDTIME 02/12/20 10/07/20 Unknown History insulin glargine 100 unit/mL 10 unit SUBCUT DAILY 02/12/20 10/07/20 Unknown History subcutaneous solution lisinopril 40 mg tablet 40 mg PO DAILY 02/12/20 10/07/20 Unknown History metformin 500 mg tablet 500 mg PO DAILY 02/12/20 10/07/20 Unknown History metoprolol tartrate 25 mg tablet 12.5 mg PO BID 02/12/20 10/07/20 Unknown History albuterol sulfate 90 mcg/actuation 90 mcg INHALATION Q4H PRN 07/10/20 10/07/20 Unknown History aerosol inhaler aspirin 81 mg tablet,delayed 81 mg PO DAILY 07/10/20 10/07/20 Unknown History release trazodone 100 mg tablet 100 mg PO BEDTIME 07/19/20 10/07/20 Unknown History amlodipine 1 tab PO DAILY 08/30/20 10/07/20 Unknown History Exam Airway Mallampati Class: II TM Dist: >3cm Neck ROM: Full Heart: RRR Lungs: CTA Assessment and Plan Assessment Anesthesia Assessment: Anesthesia Plan Discussed and Chart Reviewed Final Anesthetic Review NPO: Yes ASA Class: III Final Preanesthetic Review: No Changes in Pt Med Stat and Consent Obtained/Reviewed Patient Risk: Intermediate Procedure Risk: Intermediate Anesthetic Plan Anesthetic Plan: MAC: Disposition: Standard PACU
[2020-10-11] MEDS: Sodium Phosphate,Mono-Dibasic 133 ML ENEMA PR (12:02)
[2020-10-11 12:15] LABS: Glucose, Whole Blood 100 mg/dL (60-115)
--- NOTE | 2020-10-11 12:19 | W.PM.OPN ---
Operative Note Operative Note Date of Service: 10/11/20 Narrative: Pre-op diagnosis: abdominal pain, constipation, unintentional wt loss Post-op diagnosis: other (DIVERTICULOSIS, HEMORRHOIDS) Procedure: COLONOSCOPY TILL CECUM WITH BIOPSIES Consent: Indications for the procedure and potential complications of bleeding, perforation, reaction to medications and missed diagnosis were discussed with the patient and informed consent was obtained. Instrument: Olympus PCF H 190 L variable stiffness pediatric colonoscope Monitoring: Vital signs and clinical assessment, intermittent blood pressure monitoring, continuous EKG monitoring, Pulse oximetry and Carbon Dioxide monitoring were done throughout the procedure. Colon withdrawl time was 35 minutes. Procedure: The patient was placed in the left lateral decubitis position and pre-procedure medications were administered. After a digital rectal examination of the ano-rectum, the video colonoscope was inserted into the rectum and advanced through the colon to the cecum. The colonoscope was slowly withdrawn in a retrograde panoramic fashion and the colon mucosa was carefully examined including a retroflexed view of the rectum. Findings and interventions are described below. Procedure Difficulty: LLQ pressure was applied to intubate the cecum Findings: Terminal Ileum: Distal 5-6 cm was examined and appeared normal Cecum: Normal Ascending Colon: Patchy erythema in the right colon random biopsies obtained. Transverse Colon: Normal Descending Colon: Normal Sigmoid Colon: Moderate diverticulosis Rectum: Normal Ano-rectum: Moderate internal hemorrhoids Colon preparation: Good after copious irrigation Impression and Post Procedure Diagnosis: Colonoscopy Findings: No polyps were detected. Patchy erythema in the right colon random biopsies were obtained Moderate diverticulosis seen in the sigmoid colon Moderate hemorrhoids on retroflexed exam. Plan: Await pathology results Patient has an appointment on 12/02/20 in the GI Clinic with Van Guzman M.D. Repeat Colonoscopy interval based on path results - in 10 years if biopsies are. Above findings were reviewed with the patient and diverticulosis handouts were given in the discharge area Surgeon: Van Guzman MD Anesthesia: MAC (Dr Cortes & Dr Sharpe) Was an Recruiting And Selection Consultant used for this Procedure?: Yes Recruiting And Selection Consultant: Sarbjit Brock Estimated blood loss (mL): 0 Pathology: other (A- RIGHT COLON BXS R/O MICROSCOPIC COLITIS) Condition: stable Disposition: PACU
--- NOTE | 2020-10-11 12:19 | MHC.SHP ---
Pre-Procedural Eval Section A The patient is an INPATIENT: No Changes since office visit: Yes Patient answered all questions; No Cold of Flu in the past 2 weeks, No New Medical Problems and No Changes in Medication The History & Physical has been completed within 30 days and I have reviewed it.: Yes Section B Chief Complaint: Elevated Lipase Allergies: Allergies Allergy/AdvReac Type Severity Reaction Status Date / Time cortisone [CORTISONE] Allergy Intermediate RASH Verified 09/19/20 14:49 hydrocortisone Allergy Intermediate Rash Verified 09/19/20 14:49 morphine [Morphine] Allergy Intermediate RASH, Verified 09/19/20 14:49 ITCHING oxycodone [From Percocet] Allergy Intermediate Nausea and Verified 09/19/20 14:49 Vomiting Penicillins Allergy Intermediate ITCHING Verified 09/19/20 14:49 sulfamethoxazole Allergy Intermediate Rash Verified 09/19/20 14:49 [From Bactrim] trimethoprim [From Bactrim] Allergy Intermediate Rash Verified 09/19/20 14:49 Exam Surgical H&P Exam: Normal: HEENT, Normal: Heart, Normal: Lungs, Normal: Extremities and Normal: Abdomen Plan Diagnosis/Plan: Unchanged I have reviewed the history and physical and performed a pertinent physical examination on my patient. No changes have occurred unless specified.
[2020-10-11] MEDS: Lactated Ringers 1,000 ML 100 ML IVCONT (12:21)
--- NOTE | 2020-10-11 12:31 | PC.NURSE ---
fleet enema given, lt thrasher to yellow watery results. MD aware
[2020-10-11 13:22] VITALS: BP 108/52; PULSE 55; RESP 16; TEMP 36.1; O2SAT 100
[2020-10-11 13:37] VITALS: BP 129/58; PULSE 54; RESP 17; TEMP 36.1; O2SAT 100
== END 2020-10-11 14:30 | disposition home or self-care (01) ==
PROVIDERS: PCP Internal Medicine; Visit Provider Internal Medicine Gastroenterology
PROC: 0DJD8ZZ Inspection of Lower Intestinal Tract, Via Natural or Artificial Opening Endoscopic (ICD-10-PCS; CPT 45378; principal; 2020-10-11 12:00)
DX: R10.9 Unspecified abdominal pain (principal); R74.8 Abnormal levels of other serum enzymes; K59.09 Other constipation; R19.7 Diarrhea, unspecified; K57.30 Diverticulosis of large intestine without perforation or abscess without bleeding; K64.8 Other hemorrhoids; R63.4 Abnormal weight loss; Z68.23 Body mass index [BMI] 23.0-23.9, adult; K21.9 Gastro-esophageal reflux disease without esophagitis; E11.9 Type 2 diabetes mellitus without complications; Z79.4 Long term (current) use of insulin; I25.2 Old myocardial infarction; Z88.0 Allergy status to penicillin; Z88.2 Allergy status to sulfonamides; Z88.8 Allergy status to other drugs, medicaments and biological substances; Z86.16 Personal history of COVID-19; Z79.899 Other long term (current) drug therapy; K86.89 Other specified diseases of pancreas
CPT/HCPCS: 45380; 82947; 88305

== ENCOUNTER 2020-10-15 12:57 | Outpatient (REF) | payer MEDICARE, SELFPAY ==
--- NOTE | ~2020-10-15 | MM_ITS ---
EXAMINATION: MM SCREENING DIGITAL BREAST TOMOSYNTHESIS, BILATERAL CLINICAL INFORMATION: Screening. Asymptomatic. The lifetime risk of breast cancer based on the Tyrer-Cuzick Model is 11%. COMPARISON: Mammography: 05/19/2018, 10/03/2016, 06/17/2015 TECHNIQUE: Digital breast tomosynthesis is performed in both the craniocaudal and mediolateral oblique views along with computer-aided detection (CAD). Synthesized 2D images are generated from the tomosynthesis. Additional left MLO view is provided. FINDINGS: There are scattered areas of fibroglandular density (ACR BI-RADS breast composition Category b). There are no significant masses, abnormal calcifications, or other abnormalities. The axilla and skin contours are unremarkable. No significant changes. MM/MM tomosynthesis screening BI IMPRESSION: No mammographic evidence of malignancy. ASSESSMENT: BI-RADS 1: Negative RECOMMENDATION: Routine annual mammography screening. This patient's information was entered into a reminder system with a target due date for their next mammogram.
== END 2020-10-15 12:58 | disposition home or self-care (01) ==
LOC: HO.MAMMO 12:57
PROVIDERS: Visit Provider Internal Medicine
DX: Z12.31 Encounter for screening mammogram for malignant neoplasm of breast (principal)
CPT/HCPCS: 77063; 77067

== ENCOUNTER 2020-10-23 07:09 | Outpatient (REF) | payer MEDICARE, SELFPAY ==
[2020-10-23 08:40] LABS: Blood Urea Nitrogen 12 mg/dL (9-16); Estimated Glomerular Filt Rate > 60
== END 2020-10-23 07:10 | disposition home or self-care (01) ==
LOC: HO.LAB 07:09
PROVIDERS: PCP Internal Medicine; Visit Provider Psychiatry & Neurology Neurology
DX: G44.209 Tension-type headache, unspecified, not intractable (principal); G43.909 Migraine, unspecified, not intractable, without status migrainosus
CPT/HCPCS: 36415; 82565; 84520

== ENCOUNTER → 2020-11-12 15:17 | Outpatient (BNVA) | payer MEDICARE, SELFPAY | PROVIDERS: PCP Internal Medicine; Visit Provider Nurse Practitioner ==

== ENCOUNTER 2020-11-21 08:21 | Outpatient (REF) | payer MEDICARE, SELFPAY ==
--- NOTE | ~2020-11-21 | CT_ITS ---
EXAMINATION: CT ANGIOGRAM BRAIN, HEAD CLINICAL INFORMATION: Tension-type headaches. COMPARISON: Head CT 08/29/2019. TECHNIQUE: Test bolus sequences followed by intravenous administration 75 mL of Omnipaque 350 intravenous contrast. Helical imaging was performed in the axial plane from the skull base to the vertex. Delayed postcontrast imaging of the head was also performed. The data was processed at the biotechnologist workstation for generation of MIP sequences. Three-dimensional volume rendered reformatted images were also generated at an offline 3-D workstation. This CT examination was performed using dose optimization techniques as appropriate, variously including the following: *Automated exposure control *Adjustment of mA and/or kV according to patient size (this includes techniques or standardized protocols for targeted exams where dose is matched to indication/reason for exam; i.e. extremities or head) *Use of iterative reconstruction technique FINDINGS: The partially imaged left cervical vertebral artery, the intradural left vertebral artery, and the basilar artery are very small in size which may be congenital and/or may reflect severe vascular disease. Atherosclerotic calcification results in a severe stenosis of the proximal right intradural vertebral artery. 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 There is extensive atherosclerotic calcification throughout the carotid siphons bilaterally resulting in a severe stenosis of the proximal right cavernous ICA segment and severe stenoses involving the distal left cavernous and left paraclinoid ICA segments. 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 There is no pathologic enhancement intracranially. There is no intracranial hemorrhage, hydrocephalus, extra-axial surface collection, midline shift, or other herniation pattern. Noriega to white matter differentiation is diffusely maintained without evidence of an evolved acute territorial infarct. The basilar cisterns are preserved. No significant soft tissue abnormality. No acute osseous abnormality. The paranasal sinuses and the mastoid air cells are well aerated. CT/CT angio head IMPRESSION: - The partially imaged left cervical vertebral artery, the intradural left vertebral artery, and the basilar artery are very small in size which may be congenital and/or may reflect severe vascular disease. Atherosclerotic calcification results in a severe stenosis of the proximal right intradural vertebral artery. 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 - There is extensive atherosclerotic calcification throughout the carotid siphons bilaterally resulting in a severe stenosis of the proximal right cavernous ICA segment and severe stenoses involving the distal left cavernous and left paraclinoid ICA segments.
[2020-11-21] MEDS: iohexoL 350 MG/ML 100 ML INFUS..BTL 75 ML IV (09:41)
== END 2020-11-21 08:22 | disposition home or self-care (01) ==
LOC: HO.CT 08:21
PROVIDERS: Visit Provider Psychiatry & Neurology Neurology
DX: G44.209 Tension-type headache, unspecified, not intractable (principal); G43.909 Migraine, unspecified, not intractable, without status migrainosus
CPT/HCPCS: 70496; Q9967

== ENCOUNTER 2020-11-29 13:04 | Outpatient (REF) | payer MEDICARE, SELFPAY ==
--- NOTE | ~2020-11-29 | XR_ITS ---
EXAMINATION: XR CHEST CLINICAL INFORMATION: Abnormal weight loss COMPARISON: Previous chest x-ray most recent July 2020 TECHNIQUE: 2 views of the chest were obtained. FINDINGS: The cardiac and mediastinal contours are normal. The lungs are clear. There is no pleural effusion or pneumothorax. There are degenerative changes of the spine. XR/XR chest 2V IMPRESSION: No evidence for acute disease in the chest.
== END 2020-11-29 13:05 | disposition home or self-care (01) ==
LOC: HO.XRAY 13:04
PROVIDERS: PCP Internal Medicine; Visit Provider Internal Medicine
DX: R63.4 Abnormal weight loss (principal)
CPT/HCPCS: 71046

== ENCOUNTER → 2020-12-02 08:46 | Outpatient (BNVA) | payer MEDICARE, SELFPAY | PROVIDERS: PCP Internal Medicine; Referring Provider Internal Medicine; Visit Provider Internal Medicine Gastroenterology | DX: R19.7 Diarrhea, unspecified (principal); R11.2 Nausea with vomiting, unspecified; R10.10 Upper abdominal pain, unspecified; R74.8 Abnormal levels of other serum enzymes; K91.5 Postcholecystectomy syndrome; K59.09 Other constipation; K86.89 Other specified diseases of pancreas; K21.9 Gastro-esophageal reflux disease without esophagitis; D64.9 Anemia, unspecified | CPT/HCPCS: 99212 ==

== ENCOUNTER 2020-12-11 12:59 | Outpatient (REF) | payer MEDICARE, SELFPAY ==
--- NOTE | ~2020-12-11 | XR_ITS ---
EXAMINATION: XR THORACIC SPINE XR RIBS, LEFT CLINICAL INFORMATION: Back pain. COMPARISON: 09/30/2011 and chest x-ray of 11/29/2020. TECHNIQUE: PA chest and 3 views of the left ribs. Three-view thoracic spine study. FINDINGS: PA film of chest demonstrates some scarring within the right upper lobe. No acute parenchymal disease, pneumothorax, or pleural effusion identified. Heart normal size. No evidence of pulmonary edema. No acute left rib fracture is identified. No destructive bony lesion is seen. AP lateral and swimmer's views of the thoracic spine performed. No acute thoracic spine fracture identified. No destructive bony lesion is seen. Pedicles intact. No abnormal paraspinal line bulge is seen. There is some mild degenerative spurring seen about the mid thoracic spine. Disc spaces are generally maintained. XR/XR ribs LT min 3V w CXR1V IMPRESSION: No significant abnormality of the thoracic spine identified. No acute parenchymal disease within the chest. No acute displaced left rib fracture identified.
--- NOTE | ~2020-12-11 | XR_ITS ---
EXAMINATION: XR THORACIC SPINE XR RIBS, LEFT CLINICAL INFORMATION: Back pain. COMPARISON: 09/30/2011 and chest x-ray of 11/29/2020. TECHNIQUE: PA chest and 3 views of the left ribs. Three-view thoracic spine study. FINDINGS: PA film of chest demonstrates some scarring within the right upper lobe. No acute parenchymal disease, pneumothorax, or pleural effusion identified. Heart normal size. No evidence of pulmonary edema. No acute left rib fracture is identified. No destructive bony lesion is seen. AP lateral and swimmer's views of the thoracic spine performed. No acute thoracic spine fracture identified. No destructive bony lesion is seen. Pedicles intact. No abnormal paraspinal line bulge is seen. There is some mild degenerative spurring seen about the mid thoracic spine. Disc spaces are generally maintained. XR/XR thoracic spine 2V IMPRESSION: No significant abnormality of the thoracic spine identified. No acute parenchymal disease within the chest. No acute displaced left rib fracture identified.
== END 2020-12-11 13:00 | disposition home or self-care (01) ==
LOC: HO.XRAY 12:59
PROVIDERS: PCP Internal Medicine; Visit Provider Psychiatry & Neurology Neurology
DX: M54.9 Dorsalgia, unspecified (principal)
CPT/HCPCS: 71101; 72070

== ENCOUNTER 2020-12-24 13:31 | Outpatient (REF) | payer MEDICARE, SELFPAY ==
--- NOTE | ~2020-12-24 | CT_ITS ---
EXAMINATION: CT CHEST WITH CONTRAST CLINICAL INFORMATION: Weight loss, chronic cough and night sweats. COMPARISON: Chest x-ray 11/29/2020. TECHNIQUE: Multidetector volumetric CT imaging of the chest was obtained after the administration of 65 mL of Omnipaque 350 intravenous contrast without immediate adverse reactions. Axial MIP volume rendering provided. Sagittal and coronal reformatted images were obtained. This CT examination was performed using dose optimization techniques as appropriate, variously including the following: *Automated exposure control *Adjustment of mA and/or kV according to patient size (this includes techniques or standardized protocols for targeted exams where dose is matched to indication/reason for exam; i.e. extremities or head) *Use of iterative reconstruction technique DLP: 106 mGy-cm FINDINGS: PAVING CONTRACTOR: Unremarkable valve fitter exam. LUNGS: The lungs are well expanded and clear of acute pneumonic process. There is dependent bibasilar atelectasis in both lower lobes, likely low-grade inflammation or atelectasis. There are no pulmonary nodules, mass or consolidation. MEDIASTINUM: The central trachea and the bronchi are widely patent. The heart size and the great vessels are normal caliber. No pericardial effusion is seen. There are no abnormal mediastinal or hilar lymph nodes. There are coronary artery calcifications. The thyroid lobes are symmetrical and normal. PLEURA: There is no pleural effusion. No pleural mass or thickening. AXILLAE: No abnormal axillary lymph nodes are seen. The chest wall is unremarkable. UPPER ABDOMEN: Visualized liver is diffusely attenuated. No focal lesion is seen. The gallbladder has been surgically removed. Bilateral adrenal glands are symmetrical and unremarkable. The spleen and the visualized pancreas are unremarkable. OSSEOUS STRUCTURES: No lytic or sclerotic process is seen. There is mild ventral spondylosis of the mid dorsal spine. CT/CT chest w con IMPRESSION: Mild bibasilar haziness, likely low-grade inflammatory process or early changes of atelectasis. Otherwise, the rest of the CT chest is unremarkable.
[2020-12-24 15:06] LABS: Blood Urea Nitrogen 22 mg/dL (9-16); Estimated Glomerular Filt Rate > 60
[2020-12-24] MEDS: iohexoL 350 MG/ML 100 ML INFUS..BTL IV (16:20)
== END 2020-12-24 13:32 | disposition home or self-care (01) ==
LOC: HO.CT 13:31
PROVIDERS: PCP Internal Medicine; Visit Provider Internal Medicine
DX: R63.4 Abnormal weight loss (principal)
CPT/HCPCS: 36415; 71260; 82565; 84520; Q9967

== ENCOUNTER → 2021-02-06 11:18 | Outpatient (BNVA) | payer MEDICARE, SELFPAY | PROVIDERS: PCP Internal Medicine; Visit Provider Internal Medicine Gastroenterology | DX: K21.9 Gastro-esophageal reflux disease without esophagitis (principal); K86.89 Other specified diseases of pancreas; K59.09 Other constipation; K91.5 Postcholecystectomy syndrome; R11.2 Nausea with vomiting, unspecified; R10.10 Upper abdominal pain, unspecified; R74.8 Abnormal levels of other serum enzymes | CPT/HCPCS: Q3014 ==

== ENCOUNTER 2021-03-16 13:51 | Emergency (ER) | payer MEDICARE, SELFPAY ==
--- NOTE | ~2021-03-16 | XR_ITS ---
EXAMINATION: XR CHEST CLINICAL INFORMATION: Shortness of breath COMPARISON: Chest CT 12/24/2020 TECHNIQUE: Frontal view of the chest was obtained. FINDINGS: No focal consolidation, pleural effusion or pneumothorax. Heart size is normal. No acute osseous abnormality. XR/XR chest 1V IMPRESSION: No acute pulmonary process.
--- NOTE | ~2021-03-16 | XR_ITS ---
EXAMINATION: LEFT FOOT AND LEFT ANKLE X-RAYS CLINICAL INFORMATION: Pain post fall COMPARISON: None TECHNIQUE: 3 views of the left foot and 3 views of the left ankle FINDINGS: Left foot: Bone alignment is normal. There is an ossification adjacent to the anterior talus seen on the lateral view questionable for fracture. This doesn't not have a sharp margin and is of uncertain of uncertain age. There are degenerative changes at the talonavicular and navicular cuneiform joints. There is a small radiopaque soft tissue foreign body projecting over the dorsal base of the second and third metatarsal bones. There are calcaneal spurs. There is soft tissue arterial calcification. Left ankle: Bone alignment is normal. No fracture or dislocation is seen. The ankle mortise is normal. Soft tissues are normal. XR/XR ankle LT 2V IMPRESSION: Left foot: Question evidence of trauma to the anterior talus of uncertain age. Clinical correlation recommended. Soft tissue foreign body in the dorsal foot overlying the base of the second third metatarsal bones. Mild degenerative changes of the midfoot and calcaneal spurs. Soft tissue arterial calcification. Left ankle: No fracture or dislocation.
--- NOTE | ~2021-03-16 | XR_ITS ---
EXAMINATION: LEFT FOOT AND LEFT ANKLE X-RAYS CLINICAL INFORMATION: Pain post fall COMPARISON: None TECHNIQUE: 3 views of the left foot and 3 views of the left ankle FINDINGS: Left foot: Bone alignment is normal. There is an ossification adjacent to the anterior talus seen on the lateral view questionable for fracture. This doesn't not have a sharp margin and is of uncertain of uncertain age. There are degenerative changes at the talonavicular and navicular cuneiform joints. There is a small radiopaque soft tissue foreign body projecting over the dorsal base of the second and third metatarsal bones. There are calcaneal spurs. There is soft tissue arterial calcification. Left ankle: Bone alignment is normal. No fracture or dislocation is seen. The ankle mortise is normal. Soft tissues are normal. XR/XR foot LT 2V IMPRESSION: Left foot: Question evidence of trauma to the anterior talus of uncertain age. Clinical correlation recommended. Soft tissue foreign body in the dorsal foot overlying the base of the second third metatarsal bones. Mild degenerative changes of the midfoot and calcaneal spurs. Soft tissue arterial calcification. Left ankle: No fracture or dislocation.
--- NOTE | ~2021-03-16 | CT_ITS ---
EXAM: CT HEAD WITHOUT CONTRAST CT CERVICAL SPINE INDICATION: Reason for Exam fall and neck injury TECHNIQUE: A noncontrast CT scan was performed from the skull base to the vertex. A noncontrast CT scan of the cervical spine was performed from the base of the skull through T1. Coronal and sagittal reformats were obtained at the acquisition workstation. Dose length product is 1053 mGy-cm. This CT examination was performed using dose optimization techniques as appropriate, variously including the following: *Automated exposure control *Adjustment of mA and/or kV according to patient size (this includes techniques or standardized protocols for targeted exams where dose is matched to indication/reason for exam; i.e. extremities or head) *Use of iterative reconstruction technique COMPARISON: CTA head 11/21/2020, head and C-spine radiographs 08/29/2019 FINDINGS: Head: No evidence of acute intracranial hemorrhage or extra-axial fluid collection. No acute territorial infarction. No evidence of mass lesion, mass effect or midline shift. The ventricles are symmetric in configuration and normal in size. The basal cisterns are patent. The calvarium is intact. Limited views of the paranasal sinuses are unremarkable. Mastoid air cells are well aerated and middle ear cavities are clear. Limited views of the orbits are unremarkable. Cervical Spine: Cervical vertebral bodies are normal in height and alignment. Mild C5-C6 degenerative disc disease and endplate spurring. Intervertebral disc spaces are otherwise preserved. Degenerative changes at the atlantodental articulation. Facet joints are anatomically aligned bilaterally. Spinous processes are intact and well aligned. Ligamentum flavum ossification several levels, similar to the prior study. No prevertebral soft tissue swelling. The paravertebral muscles and fat planes are preserved. Thyroid unremarkable. Lung apices, partial images, unremarkable. No bulky cervical adenopathy. CT/CT cervical spine wo con IMPRESSION: -No acute intracranial abnormality -No acute cervical spinal fracture or traumatic malalignment.
[2021-03-16 14:01] VITALS: BP 108/52; BP 90/50; PULSE 60; PULSE 61; O2SAT 100; BMI 21.9
--- NOTE | 2021-03-16 14:13 | ECG_ITS ---
Test Reason : FALL Blood Pressure : / mmHG Vent. Rate : 064 BPM Atrial Rate : 064 BPM P-R Int : 172 ms QRS Dur : 086 ms QT Int : 422 ms P-R-T Axes : 066 048 045 degrees QTc Int : 435 ms Normal sinus rhythm Normal ECG No significant changes seen Referred By: Rafael Nicholas Electronically Signed By:JOEY BLACKMON MD
--- NOTE | 2021-03-16 14:18 | ED_ITS ---
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 Symptoms started about 5 days ago after she received a 2nd vaccination for COVID, patient 1st day started to have diarrhea with generalize body ache, then patient had intermittent vomiting, patient [place] the mall today went to the bathroom had nausea and 1 time vomiting then patient passed out in the bathroom, patient helped herself to get up was walking feeling very dizzy and says she is going to black out again and patient had another episode of syncope, patient was hypotensive on 911 arrival, patient's blood pressure improved and responded to IV fluid. Related Data Home Medications Medication Instructions Recorded Confirmed atorvastatin 80 mg tablet 80 mg PO DAILY 02/12/20 03/16/21 cholecalciferol (vitamin D3) 250 250 mcg PO DAILY 02/12/20 03/16/21 mcg (10,000 unit) capsule gabapentin 600 mg tablet 600 mg PO BID 02/12/20 03/16/21 lisinopril 40 mg tablet 40 mg PO DAILY 02/12/20 03/16/21 metformin 500 mg tablet 500 mg PO DAILY 02/12/20 03/16/21 aspirin 81 mg tablet,delayed 81 mg PO DAILY 07/10/20 03/16/21 release (Adult Low Dose Aspirin) trazodone 100 mg tablet 100 mg PO BEDTIME 07/19/20 03/16/21 amlodipine 5 mg tablet 1 tab PO DAILY 08/30/20 03/16/21 fluticasone propionate 50 spray INTRANASAL 03/16/21 mcg/actuation nasal spray,suspension hydrochlorothiazide 50 mg tablet 1 tab PO DAILY 03/16/21 03/16/21 ibuprofen 600 mg tablet 1 tab PO TID 03/16/21 03/16/21 linaclotide 290 mcg capsule 1 cap PO DAILY 03/16/21 03/16/21 (Linzess) metoprolol tartrate 25 mg tablet 1 tab PO BID 03/16/21 03/16/21 Previous Rx's Medication Instructions Recorded omeprazole 40 mg capsule,delayed 40 mg PO BID #180 cap 10/03/20 release ondansetron HCl 4 mg tablet 4 mg PO BID-TID PRN #90 tab 10/28/20 sennosides 8.6 mg capsule (senna) 17.2 mg PO BEDTIME 30 Days #60 cap 02/06/21 plecanatide 3 mg tablet (Trulance) 3 mg PO DAILY 30 Days #30 tab 02/11/21 docusate sodium 100 mg capsule 100 mg PO DAILY #30 cap 03/10/21 Allergies Allergy/AdvReac Type Severity Reaction Status Date / Time cortisone [CORTISONE] Allergy Intermediate RASH Verified 02/06/21 11:19 hydrocortisone Allergy Intermediate Rash Verified 02/06/21 11:19 morphine [Morphine] Allergy Intermediate RASH, Verified 02/06/21 11:19 ITCHING oxycodone [From Percocet] Allergy Intermediate Nausea and Verified 02/06/21 11:19 Vomiting Penicillins Allergy Intermediate ITCHING Verified 02/06/21 11:19 sulfamethoxazole Allergy Intermediate Rash Verified 02/06/21 11:19 [From Bactrim] trimethoprim [From Bactrim] Allergy Intermediate Rash Verified 02/06/21 11:19 Review of Systems Review of Systems: All other systems are reviewed and are negative Constitutional: Reports as per HPI and Reports no additional constitutional complaints Eyes: Reports as per HPI and Reports no additional eye complaints Reports system reviewed and no additional complaints, except as documented Cardiovascular: Reports as per HPI and Reports no additional cardiovascular complaints Respiratory: Reports as per HPI and Reports no additional respiratory complaints Gastrointestinal: Reports as per HPI and Reports no additional gastrointestinal complaints Genitourinary: Reports no additional female genitourinary complaints Musculoskeletal: Reports no additional musculoskeletal complaints Skin/Breast: Reports system reviewed and no additional complaints, except as docu Psychiatric: Reports no additional psychiatric complaints Endocrine: Reports no additional endocrine complaints Hematologic/Lymphatic: Reports no additional hematologic/lymphatic complaints Allergic/Immunologic: Reports no additional allergic/immunologic complaints Reports system reviewed and no additional complaints, except as documented and Reports Abnormal speech present [facility] Past Medical History Medical History Diabetes GERD (gastroesophageal reflux disease) History of heart attack Neuropathy Pancreatic insufficiency Rheumatic arteritis Surgical History H/O colonoscopy with polypectomy History of bilateral carpal tunnel release History of cholecystectomy History of esophagogastroduodenoscopy (EGD) Hx of colonoscopy Hx of heart artery stent Family History Family History Father No problems noted. Mother No problems noted. Brother No problems noted. Sister Breast cancer Lymphoma Sister No problems noted. Sister No problems noted. Sister No problems noted. Social History Social History Household Members: None Are you a primary care transport nurse to a significant other at home: No Do you presently have visiting nurse or other home services: No Alcohol intake: former Patient Tobacco Use Status: Never used Tobacco Advance Directives: No Advance Directives Information Provided: No Current occupational status: unemployed and disabled Physical Exam Vital Signs: Vital Signs: Last Vital Signs Temp 97.9 F 03/16/21 17:18 Pulse 62 03/16/21 17:18 Resp 18 03/16/21 17:18 BP 139/66 03/16/21 17:18 Pulse Ox 97 03/16/21 17:18 Body Mass Index 21.9 Vital signs have been reviewed as appeared to be correct. Blood pressure normal. Heart rate normal. Respiration rate normal. Temperature normal. Oxygen saturation normal. Appearance: Alert. Oriented X3. No acute distress. Head: Normal external exam. Normocephalic. Atraumatic. No Garcia signs noted. No raccoon eyes noted Eyes: PERRLA. EOMI. Conjunctiva and sclera normal. Eyelids normal. ENT: TM's Normal. Pharynx normal. Uvula midline. Moist mucous membranes. No trismus noted. No drooling noted. No muffled voice noted. Neck: Normal inspection. Neck supple. FROM. No adenopathy. Thyroid Normal. No meningeal signs. No neck mass noted. CVS: Normal heart rate and rhythm. Heart sound normal. No murmurs noted. Pulses normal throughout. Respiratory: No respiratory distress. Painless inspiration. Breath sounds normal. No wheezes/rales/rhonchi noted. Chest nontender. No accessory muscle usage noted or decreased air movement noted. Abdomen: Soft and nontender. Bowel sounds normal in all 4 quadrants. No distention noted. No organomegaly noted. No visible injury noted. Back: No CVA tenderness. Full range of motion noted. Skin: Skin warm and dry. Normal skin color. Normal skin turgor. No rashes/lesions/lacerations noted. Extremities: No lower extremity edema. Extremities exhibit normal range of motion. Extremities nontender. Neuro: Oriented X 3. Cranial nerve exam: II-XII are grossly intact No motor deficit. No sensory deficit. Reflexes normal. Course Course Course Narrative: Assessment and plan. 65-year-old female with status post 2nd dose of COVID vaccination, patient shortly start to develop diarrhea and vomiting, patient [place] the mall today when she started to have nausea and then vomited and then had a syncopal episode, initially found to be hypotensive by EMS, patient was given IV fluid with improvement of blood pressure, patient was monitored in the emergency department for 3 hours, patient had unremarkable labs, except for slight leukoc ytosis, and hyperglycemia, radiographic studies showed no acute traumatic injury. Patient was able to tolerate p.o. intake with no nausea or vomiting, patient also is able to ambulate in the emergency department with some pain and left foot (no acute fracture of the left foot/ankle). Medical Decision Making Medical Records Medical records reviewed: Yes I reviewed the patient's medical records. Lab Data Lab results reviewed: Yes I reviewed the patient's lab results. Result diagrams: 03/16/21 16:01 03/16/21 16:05 Labs: Lab Results 03/16/21 03/16/21 03/16/21 Range/Units 16:01 16:01 16:05 WBC 11.9 H (4.8-10.8) X10*3/uL RBC 3.48 L (4.20-5.50) X10*6/uL Hgb 11.0 L (12.0-16.0) g/dl Hct 31.5 L (37.0-47.0) % MCV 90.5 (80.0-98.0) fL MCH 31.6 (27.0-33.0) pg MCHC 34.9 (31.0-35.0) g/dl RDW 12.8 (11.0-16.0) % Plt Count 200 (160-400) X10*3/uL MPV 11.0 (9.4-12.3) fL Immature Gran % (Auto) 0.5 H (0.0-0.4) % Neut % (Auto) 83.0 H (45-73) % Lymph % (Auto) 9.9 L (20-40) % Candler % (Auto) 5.5 (2-11) % Eos % (Auto) 0.6 (0-4) % Baso % (Auto) 0.5 (0-2) % Lymph # (Auto) 1.2 (1.2-4.9) X10*3/uL Candler # (Auto) 0.7 (0.1-1.2) X10*3/uL Eos # (Auto) 0.1 (0.0-0.4) X10*3/uL Baso # (Auto) 0.1 (0.0-0.2) X10*3/uL Abs Immat Gran (auto) 0.06 H (0.00-0.03) X10*3/uL Absolute Neuts (auto) 9.89 H (2.0-8.3) x10*3/uL Absolute Nucleated RBC 0.000 (0.0-0.012) X10*3/uL Nucleated RBC % (auto) 0.0 (0.0-0.2) /100WBC Sodium 133 L (135-145) mmol/L Potassium 4.7 (3.3-5.1) mmol/L Chloride 101 (96-108) mmol/L Carbon Dioxide 23 (22-29) mmol/L Anion Gap 14 (12-20) BUN 21 H (9-16) mg/dL Creatinine 1.29 (0.5-1.4) mg/dL Estim Creat Clear Calc 36.5 Estimated GFR 41 Random Glucose 303 H (60-115) mg/dL Calcium 8.8 D (8.4-10.2) mg/dL Total Bilirubin 0.6 (0.0-1.0) mg/dL Direct Bilirubin 0.2 (0.0-0.5) mg/dL AST 21 (5-31) U/L ALT 17 (0-31) U/L Alkaline Phosphatase 74 (39-117) U/L Troponin I High Sens (<3.5-17.0) ng/L B-Natriuretic Peptide (<100) pg/mL Total Protein 6.1 L (6.5-8.0) g/dL Albumin 3.6 (3.5-5.0) g/dL Lipase 146 H (8-78) U/L COVID-19 (KATIE) Negative (Negative) COVID-19 Clin Com See Note 03/16/21 03/16/21 Range/Units 16:05 16:05 WBC (4.8-10.8) X10*3/uL RBC (4.20-5.50) X10*6/uL Hgb (12.0-16.0) g/dl Hct (37.0-47.0) % MCV (80.0-98.0) fL MCH (27.0-33.0) pg MCHC (31.0-35.0) g/dl RDW (11.0-16.0) % Plt Count (160-400) X10*3/uL MPV (9.4-12.3) fL Immature Gran % (Auto) (0.0-0.4) % Neut % (Auto) (45-73) % Lymph % (Auto) (20-40) % Candler % (Auto) (2-11) % Eos % (Auto) (0-4) % Baso % (Auto) (0-2) % Lymph # (Auto) (1.2-4.9) X10*3/uL Candler # (Auto) (0.1-1.2) X10*3/uL Eos # (Auto) (0.0-0.4) X10*3/uL Baso # (Auto) (0.0-0.2) X10*3/uL Abs Immat Gran (auto) (0.00-0.03) X10*3/uL Absolute Neuts (auto) (2.0-8.3) x10*3/uL Absolute Nucleated RBC (0.0-0.012) X10*3/uL Nucleated RBC % (auto) (0.0-0.2) /100WBC Sodium (135-145) mmol/L Potassium (3.3-5.1) mmol/L Chloride (96-108) mmol/L Carbon Dioxide (22-29) mmol/L Anion Gap (12-20) BUN (9-16) mg/dL Creatinine (0.5-1.4) mg/dL Estim Creat Clear Calc Estimated GFR Random Glucose (60-115) mg/dL Calcium (8.4-10.2) mg/dL Total Bilirubin (0.0-1.0) mg/dL Direct Bilirubin (0.0-0.5) mg/dL AST (5-31) U/L ALT (0-31) U/L Alkaline Phosphatase (39-117) U/L Troponin I High Sens < 3.5 (<3.5-17.0) ng/L B-Natriuretic Peptide 14 (<100) pg/mL Total Protein (6.5-8.0) g/dL Albumin (3.5-5.0) g/dL Lipase (8-78) U/L COVID-19 (KATIE) (Negative) COVID-19 Clin Com Imaging Data Head/C-spine CT: Radiologist's impression: -No acute intracranial abnormality -No acute cervical spinal fracture or traumatic malalignment. Left foot/ankle x-ray: Radiologist's impression: Left foot: Question evidence of trauma to the anterior talus of uncertain age. Clinical correlation recommended. Soft tissue foreign body in the dorsal foot overlying the base of the second third metatarsal bones. Mild degenerative changes of the midfoot and calcaneal spurs. Soft tissue arterial calcification. ? Left ankle: No fracture or dislocation. ECG Data Attestation: I personally reviewed and interpreted this ECG as follows: Interpretation: Normal sinus rhythm at 64 beats per minutes, normal intervals, normal axis deviation, no ST-T changes. Discharge Plan Discharge Clinical Impression: Nausea and vomiting, Acute dehydration Patient Disposition: Home, Self-Care Instructions: Dehydration (ED) Prescriptions: No Action omeprazole 40 mg capsule,delayed release(DR/EC) 40 mg PO BID Qty: 180 RF: 1 ondansetron HCl 4 mg tablet 4 mg PO BID-TID PRN (Reason: for nausea/vomiting) Qty: 90 RF: 1 Trulance 3 mg tablet 3 mg PO DAILY 30 Days Qty: 30 RF: 3 docusate sodium 100 mg capsule 100 mg PO DAILY Qty: 30 RF: 1 amlodipine 5 mg tablet 1 tab PO DAILY RF: 0 hydrochlorothiazide 50 mg tablet 1 tab PO DAILY RF: 0 ibuprofen 600 mg tablet 1 tab PO TID RF: 0 fluticasone propionate 50 mcg/actuation spray,suspension intranasal RF: 0 metoprolol tartrate 25 mg tablet 1 tab PO BID RF: 0 Linzess 290 mcg capsule 1 cap PO DAILY RF: 0 senna 8.6 mg capsule 17.2 mg PO BEDTIME 30 Days Qty: 60 RF: 1 atorvastatin 80 mg tablet 80 mg PO DAILY RF: 0 cholecalciferol (vitamin D3) 250 mcg (10,000 unit) capsule 250 mcg PO DAILY RF: 0 lisinopril 40 mg tablet 40 mg PO DAILY RF: 0 metformin 500 mg tablet 500 mg PO DAILY RF: 0 gabapentin 600 mg tablet 600 mg PO BID RF: 0 aspirin [Adult Low Dose Aspirin] 81 mg tablet,delayed release (DR/EC) 81 mg PO DAILY RF: 0 trazodone 100 mg tablet 100 mg PO BEDTIME RF: 0 Referrals: [facility] [Primary Care Provider] - 2 days
[2021-03-16] MEDS: 0.9 % Sodium Chloride 1,000 ML 999 ML IVCONT (14:20)
[2021-03-16 15:34] VITALS: BP 125/59; PULSE 64; O2SAT 100
[2021-03-16] MEDS: Acetaminophen 325 MG TABLET 650 MG PO (15:41)
[2021-03-16 16:13] LABS: MANUAL DIFF FLAG NO
[2021-03-16 16:14] LABS: Basophils Absolute Auto 0.1 X10*3/uL (0.0-0.2); Basophils Percent Auto 0.5 % (0-2); Eosinophils Absolute Auto 0.1 X10*3/uL (0.0-0.4); Eosinophils Percent Auto 0.6 % (0-4); Hematocrit 31.5 % (37.0-47.0); Imm Gran Abs Auto 0.06 X10*3/uL (0.00-0.03); Imm Gran Pct Auto 0.5 % (0.0-0.4); Lymphocytes Absolute Auto 1.2 X10*3/uL (1.2-4.9); Lymphocytes Percent Auto 9.9 % (20-40); Mean Corpuscular HGB Conc 34.9 g/dl (31.0-35.0); Mean Corpuscular Hemoglobin 31.6 pg (27.0-33.0); Mean Corpuscular Volume 90.5 fL (80.0-98.0); Monocytes Absolute Auto 0.7 X10*3/uL (0.1-1.2); Monocytes Percent Auto 5.5 % (2-11); Neutrophils Absolute Auto 9.89 x10*3/uL (2.0-8.3); Platelet Count 200 X10*3/uL (160-400); Red Blood Count 3.48 X10*6/uL (4.20-5.50); Red Cell Distribution Width 12.8 % (11.0-16.0); White Blood Count 11.9 X10*3/uL (4.8-10.8)
[2021-03-16 16:30] LABS: Alanine Aminotransferase 17 U/L (0-31); Albumin Level 3.6 g/dL (3.5-5.0); Alkaline Phosphatase 74 U/L (39-117); Anion Gap 14 (12-20); Aspartate Amino Transferase 21 U/L (5-31); Bilirubin Direct 0.2 mg/dL (0.0-0.5); Bilirubin Total 0.6 mg/dL (0.0-1.0); Blood Urea Nitrogen 21 mg/dL (9-16); Calcium 8.8 mg/dL (8.4-10.2); Carbon Dioxide 23 mmol/L (22-29); Chloride 101 mmol/L (96-108); Creatinine Clr Calc Pharmacy 36.5; Estimated Glomerular Filt Rate 41; Glucose Random 303 mg/dL (60-115); Lipase 146 U/L (8-78); Potassium 4.7 mmol/L (3.3-5.1); Sodium 133 mmol/L (135-145); Total Protein 6.1 g/dL (6.5-8.0)
[2021-03-16 16:37] LABS: B Type Natriuretic Peptide 14 pg/mL (<100); Troponin-I High Sensitivity < 3.5 ng/L (<3.5-17.0)
[2021-03-16 16:50] LABS: IDNOW Serial# 55D5AD1C
[2021-03-16 16:51] LABS: COVID-19 Test Negative (Negative)
[2021-03-16 17:18] VITALS: BP 139/66; PULSE 62; RESP 18; TEMP 36.6; O2SAT 97
== END 2021-03-16 17:56 | disposition home or self-care (01) ==
PROVIDERS: Emergency Provider Emergency Medicine
DX: R11.2 Nausea with vomiting, unspecified (principal); E86.0 Dehydration; R53.1 Weakness; M79.672 Pain in left foot; Z20.822 Contact with and (suspected) exposure to COVID-19
CPT/HCPCS: 36415; 70450; 71045; 72125; 73600; 73620; 80048; 80076; 83690; 83880; 84484; 85025; 87635; 93005; 96360; 99284

== ENCOUNTER → 2021-05-08 12:54 | Outpatient (BNVA) | payer MEDICARE, SELFPAY | PROVIDERS: Visit Provider Internal Medicine Gastroenterology | DX: Z13.89 Encounter for screening for other disorder (principal) | CPT/HCPCS: 99212 ==

== ENCOUNTER 2021-05-20 15:59 | Emergency (ER) | payer MEDICARE, SELFPAY ==
--- NOTE | ~2021-05-20 | XR_ITS ---
EXAMINATION: XR CHEST CLINICAL INFORMATION: Shortness of breath. COMPARISON: Chest radiograph dated from 03/16/2021. TECHNIQUE: 2 views of the chest were obtained. FINDINGS: Normal appearance of the cardiomediastinal silhouette. Clear lungs. No focal airspace opacities, pleural effusions or pneumothorax. No acute osseous abnormalities. XR/XR chest 2V IMPRESSION: No acute cardiopulmonary findings.
--- NOTE | ~2021-05-20 | CT_ITS ---
EXAMINATION: CT ABDOMEN AND PELVIS WITH CONTRAST CLINICAL INFORMATION: Central abdominal pain and tenderness COMPARISON: CT abdomen and pelvis 04/06/2020 TECHNIQUE: Multidetector volumetric images were obtained from the superior aspect of the liver through the pubic symphysis following administration 85 mL of Omnipaque 350 intravenous contrast. Sagittal and coronal reformatted images were obtained on the technologist's workstation. Oral contrast: No This CT examination was performed using dose optimization techniques as appropriate, variously including the following: *Automated exposure control *Adjustment of mA and/or kV according to patient size (this includes techniques or standardized protocols for targeted exams where dose is matched to indication/reason for exam; i.e. extremities or head) *Use of iterative reconstruction technique Motion artifacts degrade imaging. DLP: 611 mGy-cm FINDINGS: LUNG BASES: The visualized lung bases are unremarkable. LIVER, GALLBLADDER, AND BILIARY TREE: The liver is normal in size, shape, and attenuation. No focal hepatic lesion or biliary ductal dilatation is present. Status post cholecystectomy. PANCREAS: Unremarkable. SPLEEN: Unremarkable. ADRENAL GLANDS: Unremarkable. KIDNEYS AND URETERS: The kidneys are normal in size, shape, and attenuation. No hydronephrosis, hydroureter, or calculi seen. No perinephric stranding. BLADDER: Empty and not well evaluated. GASTROINTESTINAL TRACT: The small and large bowel are unremarkable. The appendix is not seen ABDOMINAL WALL: No significant hernia is appreciated. LYMPH NODES: No retroperitoneal lymphadenopathy. VASCULAR: Calcific atherosclerotic plaque present in the aorta and iliofemoral vessels without aneurysm or stenosis. PELVIC VISCERA: Small anteverted uterus. An abnormal adnexal mass or free fluid is not seen. OSSEOUS STRUCTURES: Degenerative changes present in the spine most marked at L5-S1 and L4-L5 with vacuum phenomena. No bony destructive lesions. CT/CT abdomen pelvis w con IMPRESSION: A cause for the patient's central abdominal pain with tenderness has not been found. Fleischner guidelines were followed.
[2021-05-20 16:12] VITALS: BP 180/90; PULSE 61; O2SAT 100
[2021-05-20 16:39] VITALS: BP 147/69; PULSE 63; RESP 18; TEMP 36.5; O2SAT 100; BMI 21.9
[2021-05-20 17:27] LABS: COVID-19 Test Negative (Negative)
[2021-05-20 19:56] VITALS: BP 150/68; PULSE 62; RESP 16; TEMP 36.6; O2SAT 100
--- NOTE | 2021-05-20 19:59 | ED_ITS ---
HPI - URI/Sore Throat General Chief Complaint: Upper Respiratory Symptoms Stated Complaint: weakness/?covid Time Seen by Provider: 05/20/21 19:38 Source: patient, EMS and second vp hr assessment Mode of arrival: EMS Limitations: no limitations History of Present Illness HPI Narrative: 65-year-old female with a history of diabetes, HTN, HLD, anemia, pancreatic insufficiency, GERD, constipation who presents to the ER with 1 week of worsening generalized weakness associated with headaches, loose stools, nausea and generalized abdominal pain. She also short of breath with exertion. She has had decreased p.o. intake and feels very weak. She states she is too weak to even stand up. She lives at home alone and has a EXHAUSTER. She has had no fever or chills at home. She is not vomiting. She reports she has had some loose stools that are nonbloody. She is fully vaccinated for COVID. MD elicited complaint: other (Generalized weakness, body aches, diarrhea, nausea, abdominal pain) Onset (ago): week(s) (1) Consistency: intermittent Severity: moderate Pain scale (0-10): 8 Able to tolerate fluids by mouth: Yes Exacerbating factors: exertion Relieving factors: nothing Associated symptoms: myalgias, headache, nasal congestion, abdominal pain, nausea and diarrhea Treatments prior to arrival: none Related Data Home Medications Medication Instructions Recorded Confirmed atorvastatin 80 mg tablet 80 mg PO DAILY 02/12/20 05/08/21 cholecalciferol (vitamin D3) 250 250 mcg PO DAILY 02/12/20 05/08/21 mcg (10,000 unit) capsule gabapentin 600 mg tablet 600 mg PO BID 02/12/20 05/08/21 lisinopril 40 mg tablet 40 mg PO DAILY 02/12/20 05/08/21 metformin 500 mg tablet 500 mg PO DAILY 02/12/20 05/08/21 aspirin 81 mg tablet,delayed 81 mg PO DAILY 07/10/20 05/08/21 release (Adult Low Dose Aspirin) trazodone 100 mg tablet 100 mg PO BEDTIME 07/19/20 05/08/21 fluticasone propionate 50 1 spray INTRANASAL DAILY 03/16/21 05/08/21 mcg/actuation nasal spray,suspension hydrochlorothiazide 50 mg tablet 1 tab PO DAILY 03/16/21 05/08/21 ibuprofen 600 mg tablet 1 tab PO TID 03/16/21 05/08/21 linaclotide 290 mcg capsule 1 cap PO DAILY 03/16/21 05/08/21 (Linzess) metoprolol tartrate 25 mg tablet 1 tab PO BID 03/16/21 05/08/21 Previous Rx's Medication Instructions Recorded omeprazole 40 mg capsule,delayed 40 mg PO BID #180 cap 10/03/20 release ondansetron HCl 4 mg tablet 4 mg PO BID-TID PRN #90 tab 10/28/20 sennosides 8.6 mg capsule (senna) 17.2 mg PO BEDTIME 30 Days #60 cap 02/06/21 plecanatide 3 mg tablet (Trulance) 3 mg PO DAILY 30 Days #30 tab 02/11/21 docusate sodium 100 mg capsule 100 mg PO DAILY #30 cap 03/10/21 polyethylene glycol 3350 17 17 g PO DAILY 30 Days #510 g 05/08/21 gram/dose oral powder (Miralax) Allergies Allergy/AdvReac Type Severity Reaction Status Date / Time cortisone [CORTISONE] Allergy Intermediate RASH Verified 05/20/21 16:39 hydrocortisone Allergy Intermediate Rash Verified 05/20/21 16:39 morphine [Morphine] Allergy Intermediate RASH, Verified 05/20/21 16:39 ITCHING oxycodone [From Percocet] Allergy Intermediate Nausea and Verified 05/20/21 16:39 Vomiting Penicillins Allergy Intermediate ITCHING Verified 05/20/21 16:39 sulfamethoxazole Allergy Intermediate Rash Verified 05/20/21 16:39 [From Bactrim] trimethoprim [From Bactrim] Allergy Intermediate Rash Verified 05/20/21 16:39 Review of Systems Review of Systems: Constitutional: No Fever, No Chills ENT/Mouth: No sore throat, No Rhinorrhea, No Swallowing Difficulty Eyes: No Eye Pain, No Swelling, No Redness Cardiovascular: No Chest Pain, + SOB, No Orthopnea, No Edema Respiratory: No Cough, No Sputum, No Wheezing, + dyspnea Gastrointestinal: + Nausea, No Vomiting, + Diarrhea, + abdominal Pain, No Hematochezia, No Melena Genitourinary: No Dysuria, No Urinary Frequency, No Hematuria Musculoskeletal: No joint pain,+ Myalgias Skin: No Skin Lesions, No rash Neuro: + Weakness, No Numbness, + Dizziness, + Headache Psych:+ Anxiety/Panic, No Depression Heme/Lymph: No Bruising, No Lymphadenopathy Endocrine: No Polyuria, No Polydipsia [facility] Past Medical History Medical History Diabetes GERD (gastroesophageal reflux disease) History of heart attack Neuropathy Pancreatic insufficiency Rheumatic arteritis Surgical History H/O colonoscopy with polypectomy History of bilateral carpal tunnel release History of cholecystectomy History of esophagogastroduodenoscopy (EGD) Hx of colonoscopy Hx of heart artery stent Family History Family History Father No problems noted. Mother No problems noted. Brother No problems noted. Sister Breast cancer Lymphoma Sister No problems noted. Sister No problems noted. Sister No problems noted. Social History Social History Household Members: None Are you a primary acute care registered nurse to a significant other at home: No Do you presently have visiting nurse or other home services: No Alcohol intake: former Patient Tobacco Use Status: Never used Tobacco Advance Directives: No Advance Directives Information Provided: Yes Current occupational status: unemployed and disabled Physical Exam Vital Signs: Vital Signs: Last Vital Signs Temp 97.8 F 05/20/21 22:08 Pulse 58 05/20/21 22:08 Resp 16 05/20/21 22:08 BP 157/60 H 05/20/21 22:08 Pulse Ox 100 05/20/21 22:08 BMI result Body Mass Index 21.9 Appearance: Alert. Oriented X3. No acute distress. Eyes: Pupils equal, round and reactive to light. ENT: Pharynx normal. Neck: Normal inspection. Neck supple. CVS: Normal heart rate and rhythm. Pulses normal. Respiratory: No respiratory distress. Breath sounds normal. Abdomen: Soft mild generalized tenderness. No rebound or guarding. +BS x4 Skin: Skin warm and dry. Normal skin color. Normal skin turgor. No rashes. Extremities: No lower extremity edema. Neuro: Oriented X 3. No motor deficit. No sensory deficit. Ambulates with a steady gait with 1 assist. Course Course Course Narrative: 65-year-old female with history of multiple abdominal issues for which she follows with GI presents to the ER with generalized abdominal pain, nausea, diarrhea, headaches, body aches and worsening generalized weakness for the last 1 week. She reports her main complaint today is generalized weakness and decreased p.o. intake with inability to stand. On arrival to the ER her vital signs are unremarkable. Her exam reveals some generalized abdominal tenderness. Her chart was reviewed and she just saw GI here on May 08 for a 2nd opinion of her ongoing GI issues. Note indicates she had many the same symptoms then. She had some medication changes for her chronic constipation. Will repeat lab workup and get CT scan of her belly, she has not had 1 in over a year. Reevaluation(s) Reevaluation #1: Her CBC is unremarkable, anemia is at her baseline and very mild. Her magnesium is mildly low 1.5. Otherwise her electrolytes are within normal limits. Her troponin is negative. Her lipase is slightly elevated at 125 which is down from prior 146. It is chronically elevated and she has a history of pancreatic insufficiency. Urinalysis is negative for infection. Chest x-ray is clear. EKG without ischemic changes. Her rapid COVID and viral PCR panel is negative. Her CT scan is pending. If unremarkable will discuss possible PT evaluation and case management referral for placement given her weakness. It seems as though her symptoms are ongoing and chronic in nature and she has been clinically declining for a while now. She lives home alone and has a EXHAUSTER. Reevaluation #2: CT scan showed no acute findings. Use staff weapons officer did discuss possibility of PT and short-term rehab placement however patient declined. She reports having 2 molding process technician at home and plenty of help. She is feeling better after IV fluids. At this time she is stable for discharge home with supportive care and close outpatient follow-up. She is most likely suffering from acute viral syndrome that should resolve with time and supportive measures. MDM - URI/Sore Throat Medical Records Attestation: I reviewed the patient's medical records. Lab Data Attestation: I reviewed the patient's lab results. Result diagrams: 05/20/21 21:12 05/20/21 21:12 Labs: Lab Results 05/20/21 05/20/21 05/20/21 Range/Units 16:49 20:08 21:12 WBC 7.8 (4.8-10.8) X10*3/uL RBC 4.00 L (4.20-5.50) X10*6/uL Hgb 12.7 (12.0-16.0) g/dl Hct 35.3 L (37.0-47.0) % MCV 88.3 (80.0-98.0) fL MCH 31.8 (27.0-33.0) pg MCHC 36.0 H (31.0-35.0) g/dl RDW 12.1 (11.0-16.0) % Plt Count 261 (160-400) X10*3/uL MPV 10.7 (9.4-12.3) fL Immature Gran % (Auto) 0.3 (0.0-0.4) % Neut % (Auto) 49.6 (45-73) % Lymph % (Auto) 39.3 (20-40) % [place] % (Auto) 8.1 (2-11) % Eos % (Auto) 1.8 (0-4) % Baso % (Auto) 0.9 (0-2) % Lymph # (Auto) 3.1 (1.2-4.9) X10*3/uL [place] # (Auto) 0.6 (0.1-1.2) X10*3/uL Eos # (Auto) 0.1 (0.0-0.4) X10*3/uL Baso # (Auto) 0.1 (0.0-0.2) X10*3/uL Abs Immat Gran (auto) 0.02 (0.00-0.03) X10*3/uL Absolute Neuts (auto) 3.9 (2.0-8.3) x10*3/uL Absolute Nucleated RBC 0.000 (0.0-0.012) X10*3/uL Nucleated RBC % (auto) 0.0 (0.0-0.2) /100WBC Sodium (135-145) mmol/L Potassium (3.3-5.1) mmol/L Chloride (96-108) mmol/L Carbon Dioxide (22-29) mmol/L Anion Gap (12-20) BUN (9-16) mg/dL Creatinine (0.5-1.4) mg/dL Estim Creat Clear Calc Estimated GFR Random Glucose (60-115) mg/dL Lactic Acid (0.5-2.0) mmol/L Calcium (8.4-10.2) mg/dL Magnesium (1.6-2.6) mg/dL Total Bilirubin (0.0-1.0) mg/dL Direct Bilirubin (0.0-0.5) mg/dL AST (5-31) U/L ALT (0-31) U/L Alkaline Phosphatase (39-117) U/L Troponin I High Sens (<3.5-17.0) ng/L Total Protein (6.5-8.0) g/dL Albumin (3.5-5.0) g/dL Lipase (8-78) U/L Urine Color Urine Appearance Urine pH (5.0-8.0) Ur Specific Perry (1.005-1.025) Urine Protein (NEG-TRACE) MG/DL Urine Glucose (UA) (NEG) MG/DL Urine Ketones (NEG) MG/DL Urine Blood (NEG) Urine Nitrite (NEG) Ur Leukocyte Esterase (NEG) COVID-19 (KATIE) Negative (Negative) COVID-19 Clin Com See Note Influenza Type A (PCR) NEGATIVE (Negative) Influenza Type B (PCR) NEGATIVE (Negative) RSV RNA Qual (PCR) NEGATIVE (Negative) SARS-CoV-2 RNA (RT-PCR) NEGATIVE (Negative) 05/20/21 05/20/21 05/20/21 Range/Units 21:12 21:12 21:12 WBC (4.8-10.8) X10*3/uL RBC (4.20-5.50) X10*6/uL Hgb (12.0-16.0) g/dl Hct (37.0-47.0) % MCV (80.0-98.0) fL MCH (27.0-33.0) pg MCHC (31.0-35.0) g/dl RDW (11.0-16.0) % Plt Count (160-400) X10*3/uL MPV (9.4-12.3) fL Immature Gran % (Auto) (0.0-0.4) % Neut % (Auto) (45-73) % Lymph % (Auto) (20-40) % Cr[place]enden % (Auto) (2-11) % Eos % (Auto) (0-4) % Baso % (Auto) (0-2) % Lymph # (Auto) (1.2-4.9) X10*3/uL [place] # (Auto) (0.1-1.2) X10*3/uL Eos # (Auto) (0.0-0.4) X10*3/uL Baso # (Auto) (0.0-0.2) X10*3/uL Abs Immat Gran (auto) (0.00-0.03) X10*3/uL Absolute Neuts (auto) (2.0-8.3) x10*3/uL Absolute Nucleated RBC (0.0-0.012) X10*3/uL Nucleated RBC % (auto) (0.0-0.2) /100WBC Sodium 137 (135-145) mmol/L Potassium 3.8 (3.3-5.1) mmol/L Chloride 102 (96-108) mmol/L Carbon Dioxide 26 (22-29) mmol/L Anion Gap 13 (12-20) BUN 15 (9-16) mg/dL Creatinine 0.95 (0.5-1.4) mg/dL Estim Creat Clear Calc 47.5 Estimated GFR 59 Random Glucose 136 H (60-115) mg/dL Lactic Acid 1.2 (0.5-2.0) mmol/L Calcium 9.9 D (8.4-10.2) mg/dL Magnesium 1.5 L (1.6-2.6) mg/dL Total Bilirubin 0.6 (0.0-1.0) mg/dL Direct Bilirubin 0.2 (0.0-0.5) mg/dL AST 20 (5-31) U/L ALT 15 (0-31) U/L Alkaline Phosphatase 80 (39-117) U/L Troponin I High Sens < 3.5 (<3.5-17.0) ng/L Total Protein 7.2 (6.5-8.0) g/dL Albumin 4.1 (3.5-5.0) g/dL Lipase 125 H (8-78) U/L Urine Color Urine Appearance Urine pH (5.0-8.0) Ur Specific Perry (1.005-1.025) Urine Protein (NEG-TRACE) MG/DL Urine Glucose (UA) (NEG) MG/DL Urine Ketones (NEG) MG/DL Urine Blood (NEG) Urine Nitrite (NEG) Ur Leukocyte Esterase (NEG) COVID-19 (KATIE) (Negative) COVID-19 Clin Com Influenza Type A (PCR) (Negative) Influenza Type B (PCR) (Negative) RSV RNA Qual (PCR) (Negative) SARS-CoV-2 RNA (RT-PCR) (Negative) 05/20/21 Range/Units 22:10 WBC (4.8-10.8) X10*3/uL RBC (4.20-5.50) X10*6/uL Hgb (12.0-16.0) g/dl Hct (37.0-47.0) % MCV (80.0-98.0) fL MCH (27.0-33.0) pg MCHC (31.0-35.0) g/dl RDW (11.0-16.0) % Plt Count (160-400) X10*3/uL MPV (9.4-12.3) fL Immature Gran % (Auto) (0.0-0.4) % Neut % (Auto) (45-73) % Lymph % (Auto) (20-40) % [place] % (Auto) (2-11) % Eos % (Auto) (0-4) % Baso % (Auto) (0-2) % Lymph # (Auto) (1.2-4.9) X10*3/uL [place] # (Auto) (0.1-1.2) X10*3/uL Eos # (Auto) (0.0-0.4) X10*3/uL Baso # (Auto) (0.0-0.2) X10*3/uL Abs Immat Gran (auto) (0.00-0.03) X10*3/uL Absolute Neuts (auto) (2.0-8.3) x10*3/uL Absolute Nucleated RBC (0.0-0.012) X10*3/uL Nucleated RBC % (auto) (0.0-0.2) /100WBC Sodium (135-145) mmol/L Potassium (3.3-5.1) mmol/L Chloride (96-108) mmol/L Carbon Dioxide (22-29) mmol/L Anion Gap (12-20) BUN (9-16) mg/dL Creatinine (0.5-1.4) mg/dL Estim Creat Clear Calc Estimated GFR Random Glucose (60-115) mg/dL Lactic Acid (0.5-2.0) mmol/L Calcium (8.4-10.2) mg/dL Magnesium (1.6-2.6) mg/dL Total Bilirubin (0.0-1.0) mg/dL Direct Bilirubin (0.0-0.5) mg/dL AST (5-31) U/L ALT (0-31) U/L Alkaline Phosphatase (39-117) U/L Troponin I High Sens (<3.5-17.0) ng/L Total Protein (6.5-8.0) g/dL Albumin (3.5-5.0) g/dL Lipase (8-78) U/L Urine Color YELLOW Urine Appearance CLEAR Urine pH 6.0 (5.0-8.0) Ur Specific Perry <= 1.005 (1.005-1.025) Urine Protein NEG (NEG-TRACE) MG/DL Urine Glucose (UA) NEG (NEG) MG/DL Urine Ketones 5 (NEG) MG/DL Urine Blood NEG (NEG) Urine Nitrite NEG (NEG) Ur Leukocyte Esterase NEG (NEG) COVID-19 (KATIE) (Negative) COVID-19 Clin Com Influenza Type A (PCR) (Negative) Influenza Type B (PCR) (Negative) RSV RNA Qual (PCR) (Negative) SARS-CoV-2 RNA (RT-PCR) (Negative) ECG Data Attestation: I personally reviewed and interpreted this ECG as follows: ECG interpretation date: 05/20/21 ECG interpretation time: 21:08 Prior ECG tracings: available for review Interpretation: Normal sinus rhythm, heart rate 60 beats per minute, MD interval 156 MS, normal QTC, no ST segment elevations or depressions. No change from prior. Discharge Plan Discharge Clinical Impression: Weakness, Acute viral syndrome Abdominal pain Qualifiers: Abdominal location: generalized Qualified Code(s): R10.84 - Generalized abdominal pain Patient Disposition: Home, Self-Care Instructions: Viral Syndrome (ED) Additional Instructions: You were negative for COVID-19, influenza, and RSV. Your lab workup, urinalysis and CT scans were unremarkable today. Your symptoms are most likely due to a viral illness. Recommend supportive care with rest, plenty of oral hydration, and [id number] medications as needed for your symptoms. Recommend following up with your doctor in her GI specialist. If you develop new or worsening symptoms call 911 or come back to the ER for further evaluation. Result? negativo para COVID-19, influenza y RSV. Massey an?lisis de laboratorio, an?lisis de orina y tomograf?as computarizadas no fueron notables hoy. Lo m?s probable es que mitra s?ntomas se deban a kimberly enfermedad viral. Recomiende cuidados de apoyo con descanso, abundante hidrataci?n oral y medicame ntos de venta jaylon seg?n sea necesario para mitra s?ntomas. Recomiende hacer un seguimiento con massey m?dico en massey especialista gastrointestinal. Si presenta s?ntomas nuevos o que empeoran, llame al 911 o regrese a la george de emergencias para kimberly evaluaci?n adicional. Prescriptions: No Action omeprazole 40 mg capsule,delayed release(DR/EC) 40 mg PO BID Qty: 180 RF: 1 ondansetron HCl 4 mg tablet 4 mg PO BID-TID PRN (Reason: for nausea/vomiting) Qty: 90 RF: 1 Trulance 3 mg tablet 3 mg PO DAILY 30 Days Qty: 30 RF: 3 docusate sodium 100 mg capsule 100 mg PO DAILY Qty: 30 RF: 1 hydrochlorothiazide 50 mg tablet 1 tab PO DAILY RF: 0 ibuprofen 600 mg tablet 1 tab PO TID RF: 0 fluticasone propionate 50 mcg/actuation spray,suspension 1 spray intranasal DAILY RF: 0 metoprolol tartrate 25 mg tablet 1 tab PO BID RF: 0 Linzess 290 mcg capsule 1 cap PO DAILY RF: 0 senna 8.6 mg capsule 17.2 mg PO BEDTIME 30 Days Qty: 60 RF: 1 atorvastatin 80 mg tablet 80 mg PO DAILY RF: 0 cholecalciferol (vitamin D3) 250 mcg (10,000 unit) capsule 250 mcg PO DAILY RF: 0 lisinopril 40 mg tablet 40 mg PO DAILY RF: 0 metformin 500 mg tablet 500 mg PO DAILY RF: 0 gabapentin 600 mg tablet 600 mg PO BID RF: 0 aspirin [Adult Low Dose Aspirin] 81 mg tablet,delayed release (DR/EC) 81 mg PO DAILY RF: 0 trazodone 100 mg tablet 100 mg PO BEDTIME RF: 0 polyethylene glycol 3350 [Miralax] 17 gram/dose powder 17 g PO DAILY 30 Days Qty: 510 RF: 3 Print Language: Persian
--- NOTE | 2021-05-20 20:35 | ECG_ITS ---
Test Reason : WEAKNESS Blood Pressure : / mmHG Vent. Rate : 060 BPM Atrial Rate : 060 BPM P-R Int : 156 ms QRS Dur : 080 ms QT Int : 408 ms P-R-T Axes : 050 048 044 degrees QTc Int : 408 ms Normal sinus rhythm Normal ECG When compared with ECG of 16-MAR-2021 14:28, No significant change was found Referred By: China Ross Electronically Signed By:DONNY ROSARIO MD
[2021-05-20 20:53] LABS: Influenza A PCR NEGATIVE (Negative); Influenza B PCR NEGATIVE (Negative); Resp Syncy Virus RNA Qual PCR NEGATIVE (Negative); SARS COV2 PCR INHOUSE NEGATIVE (Negative)
[2021-05-20 21:19] LABS: MANUAL DIFF FLAG NO
[2021-05-20] MEDS: Acetaminophen 325 MG TABLET 975 MG PO (21:20)
[2021-05-20] MEDS: 0.9 % Sodium Chloride 1,000 ML 999 ML IVCONT (21:20)
[2021-05-20 21:24] LABS: Basophils Absolute Auto 0.1 X10*3/uL (0.0-0.2); Basophils Percent Auto 0.9 % (0-2); Eosinophils Absolute Auto 0.1 X10*3/uL (0.0-0.4); Eosinophils Percent Auto 1.8 % (0-4); Hematocrit 35.3 % (37.0-47.0); Hemoglobin 12.7 g/dl (12.0-16.0); Imm Gran Abs Auto 0.02 X10*3/uL (0.00-0.03); Imm Gran Pct Auto 0.3 % (0.0-0.4); Lymphocytes Absolute Auto 3.1 X10*3/uL (1.2-4.9); Lymphocytes Percent Auto 39.3 % (20-40); Mean Corpuscular Hemoglobin 31.8 pg (27.0-33.0); Mean Corpuscular Volume 88.3 fL (80.0-98.0); Mean Platelet Volume 10.7 fL (9.4-12.3); Monocytes Absolute Auto 0.6 X10*3/uL (0.1-1.2); Monocytes Percent Auto 8.1 % (2-11); Neutrophils Absolute Auto 3.9 x10*3/uL (2.0-8.3); Neutrophils Percent Auto 49.6 % (45-73); Platelet Count 261 X10*3/uL (160-400); Red Cell Distribution Width 12.1 % (11.0-16.0); White Blood Count 7.8 X10*3/uL (4.8-10.8)
[2021-05-20 21:30] LABS: Lactic Acid 1.2 mmol/L (0.5-2.0)
[2021-05-20 21:34] LABS: Alanine Aminotransferase 15 U/L (0-31); Albumin Level 4.1 g/dL (3.5-5.0); Alkaline Phosphatase 80 U/L (39-117); Anion Gap 13 (12-20); Aspartate Amino Transferase 20 U/L (5-31); Bilirubin Direct 0.2 mg/dL (0.0-0.5); Bilirubin Total 0.6 mg/dL (0.0-1.0); Blood Urea Nitrogen 15 mg/dL (9-16); Calcium 9.9 mg/dL (8.4-10.2); Carbon Dioxide 26 mmol/L (22-29); Chloride 102 mmol/L (96-108); Creatinine Clr Calc Pharmacy 47.5; Estimated Glomerular Filt Rate 59; Glucose Random 136 mg/dL (60-115); Lipase 125 U/L (8-78); Magnesium 1.5 mg/dL (1.6-2.6); Potassium 3.8 mmol/L (3.3-5.1); Sodium 137 mmol/L (135-145); Total Protein 7.2 g/dL (6.5-8.0)
[2021-05-20 21:47] LABS: Troponin-I High Sensitivity < 3.5 ng/L (<3.5-17.0)
[2021-05-20 22:08] VITALS: BP 157/60; PULSE 58; RESP 16; TEMP 36.6; O2SAT 100
[2021-05-20 22:24] LABS: Appearance Urine CLEAR; Color Urine YELLOW; Glucose Urine UA NEG (NEG); Leukocyte Esterase Urine NEG (NEG); Nitrite Urine NEG (NEG); Specific Gravity - Urine <= 1.005 (1.005-1.025); Urine Blood NEG (NEG); Urine Ketones 5 MG/DL (NEG); Urine Protein NEG (NEG-TRACE)
[2021-05-21] MEDS: iohexoL 350 MG/ML 100 ML INFUS..BTL 85 ML IV (00:19)
== END 2021-05-21 01:01 | disposition home or self-care (01) ==
PROVIDERS: Physician Assistant; Emergency Provider Emergency Medicine Emergency Medical Services
DX: B34.9 Viral infection, unspecified (principal); R10.84 Generalized abdominal pain; Z20.822 Contact with and (suspected) exposure to COVID-19; R53.1 Weakness; R06.02 Shortness of breath; E11.9 Type 2 diabetes mellitus without complications; E78.5 Hyperlipidemia, unspecified; Z79.02 Long term (current) use of antithrombotics/antiplatelets; Z79.82 Long term (current) use of aspirin; Z79.899 Other long term (current) drug therapy
CPT/HCPCS: 0241U; 36415; 71046; 74177; 80048; 80076; 81003; 83605; 83690; 83735; 84484; 85025; 87635; 93005; 96360; 99284; Q9967

== ENCOUNTER → 2021-09-26 07:21 | Outpatient (BNVA) | payer MEDICARE, SELFPAY | PROVIDERS: PCP Internal Medicine; Referring Provider Internal Medicine; Visit Provider Internal Medicine Gastroenterology | DX: K91.5 Postcholecystectomy syndrome (principal); R10.10 Upper abdominal pain, unspecified; R11.2 Nausea with vomiting, unspecified; D64.9 Anemia, unspecified; K59.09 Other constipation; K21.9 Gastro-esophageal reflux disease without esophagitis; R19.7 Diarrhea, unspecified; R74.8 Abnormal levels of other serum enzymes | CPT/HCPCS: 99212 ==

== ENCOUNTER 2021-10-02 09:00 | Outpatient (RCR) | payer MEDICARE, SELFPAY ==
[2021-09-16 09:14] VITALS: BP 104/57; PULSE 77
== END 2021-10-14 15:51 | disposition home or self-care (01) ==
LOC: HO.PT 09:00
PROVIDERS: PCP Internal Medicine; Visit Provider Internal Medicine
DX: R26.81 Unsteadiness on feet (principal)
CPT/HCPCS: 97110; 97162

== ENCOUNTER 2021-11-05 09:10 | Outpatient (REF) | payer OTHER, SELFPAY ==
[2021-11-05 09:29] LABS: MANUAL DIFF FLAG NO
[2021-11-05 09:41] LABS: Basophils Absolute Auto 0.1 X10*3/uL (0.0-0.2); Eosinophils Absolute Auto 0.3 X10*3/uL (0.0-0.4); Eosinophils Percent Auto 2.9 % (0-4); Hematocrit 34.1 % (37.0-47.0); Imm Gran Abs Auto 0.07 X10*3/uL (0.00-0.03); Imm Gran Pct Auto 0.8 % (0.0-0.4); Lymphocytes Absolute Auto 2.6 X10*3/uL (1.2-4.9); Lymphocytes Percent Auto 29.1 % (20-40); Mean Corpuscular HGB Conc 35.2 g/dl (31.0-35.0); Mean Corpuscular Hemoglobin 30.8 pg (27.0-33.0); Mean Corpuscular Volume 87.7 fL (80.0-98.0); Mean Platelet Volume 10.1 fL (9.4-12.3); Monocytes Absolute Auto 0.8 X10*3/uL (0.1-1.2); Monocytes Percent Auto 8.4 % (2-11); Neutrophils Absolute Auto 5.2 x10*3/uL (2.0-8.3); Neutrophils Percent Auto 57.8 % (45-73); Platelet Count 266 X10*3/uL (160-400); Red Blood Count 3.89 X10*6/uL (4.20-5.50); Red Cell Distribution Width 12.3 % (11.0-16.0); White Blood Count 8.9 X10*3/uL (4.8-10.8)
[2021-11-05 10:16] LABS: Iron 73 mcg/dL (30-160); Lipase 371 U/L (8-78); Percent Iron Saturation 31 % (15-50); Total Iron Binding Capacity 239 mcg/dL (228-428); Unsaturated Iron Binding 166 ug/dL
[2021-11-05 10:41] LABS: Folate 13.2 ng/mL (> or = 4.0); Vitamin B12 779 pg/mL (200-900)
[2021-11-05 10:48] LABS: Ferritin 520 ng/mL (10-250)
[2021-11-05 10:51] LABS: Appearance Urine CLEAR; Color Urine YELLOW; Glucose Urine UA 100 MG/DL (NEG); Leukocyte Esterase Urine NEG (NEG); Nitrite Urine NEG (NEG); Specific Gravity - Urine <= 1.005 (1.005-1.025); Urine Blood NEG (NEG); Urine Ketones NEG (NEG); Urine Protein NEG (NEG-TRACE)
== END 2021-11-05 09:11 | disposition home or self-care (01) ==
LOC: HO.LAB 09:10
PROVIDERS: PCP Internal Medicine; Visit Provider Internal Medicine Gastroenterology
DX: K59.09 Other constipation (principal); R74.8 Abnormal levels of other serum enzymes; D64.9 Anemia, unspecified
CPT/HCPCS: 36415; 81003; 82306; 82607; 82728; 82746; 83540; 83690; 84134; 85025

== ENCOUNTER → 2021-11-06 07:52 | Outpatient (BNVA) | payer OTHER, SELFPAY | PROVIDERS: PCP Internal Medicine; Referring Provider Internal Medicine; Visit Provider Internal Medicine Gastroenterology | DX: D64.9 Anemia, unspecified (principal); R19.7 Diarrhea, unspecified; R11.2 Nausea with vomiting, unspecified; K91.5 Postcholecystectomy syndrome; R10.10 Upper abdominal pain, unspecified; R74.8 Abnormal levels of other serum enzymes; K59.09 Other constipation; K86.89 Other specified diseases of pancreas; K21.9 Gastro-esophageal reflux disease without esophagitis; Z79.899 Other long term (current) drug therapy | CPT/HCPCS: 99212 ==

== ENCOUNTER 2021-11-09 | Outpatient (REF) | payer OTHER, SELFPAY ==
[2021-11-10 16:16] LABS: OBS1 NEGATIVE (NEGATIVE); OBS2 NEGATIVE (NEGATIVE)
[2021-11-10 16:17] LABS: OBS Int Ctl Valid YES; OBS3 NEGATIVE (NEGATIVE)
== END 2021-11-09 00:01 | disposition home or self-care (01) ==
LOC: HO.LNP
PROVIDERS: Visit Provider Internal Medicine Gastroenterology
DX: D64.9 Anemia, unspecified (principal)
CPT/HCPCS: 82270

== ENCOUNTER 2021-12-10 08:14 | Outpatient (REF) | payer OTHER, SELFPAY ==
[2021-12-10 08:54] LABS: MANUAL DIFF FLAG NO
[2021-12-10 09:51] LABS: Basophils Absolute Auto 0.1 X10*3/uL (0.0-0.2); Basophils Percent Auto 0.9 % (0-2); Eosinophils Absolute Auto 0.3 X10*3/uL (0.0-0.4); Eosinophils Percent Auto 3.7 % (0-4); Hemoglobin 11.6 g/dl (12.0-16.0); Imm Gran Abs Auto 0.03 X10*3/uL (0.00-0.03); Imm Gran Pct Auto 0.4 % (0.0-0.4); Lymphocytes Absolute Auto 1.9 X10*3/uL (1.2-4.9); Lymphocytes Percent Auto 22.5 % (20-40); Mean Corpuscular HGB Conc 34.1 g/dl (31.0-35.0); Mean Corpuscular Volume 90.9 fL (80.0-98.0); Mean Platelet Volume 11.1 fL (9.4-12.3); Monocytes Percent Auto 12.3 % (2-11); Neutrophils Absolute Auto 5.1 x10*3/uL (2.0-8.3); Neutrophils Percent Auto 60.2 % (45-73); Platelet Count 262 X10*3/uL (160-400); Red Blood Count 3.74 X10*6/uL (4.20-5.50); Red Cell Distribution Width 12.7 % (11.0-16.0); White Blood Count 8.4 X10*3/uL (4.8-10.8)
[2021-12-10 09:56] LABS: INTERNATIONAL NORM RATIO 0.9 (0.9-1.1); Prothrombin Time 10.1 SEC (10.0-13.1)
[2021-12-10 09:59] LABS: Partial Thromboplastin Time 32.3 SEC (24.1-38.0)
[2021-12-10 10:25] LABS: Alanine Aminotransferase 9 U/L (0-31); Anion Gap 14 (12-20); Aspartate Amino Transferase 20 U/L (5-31); Blood Urea Nitrogen 12 mg/dL (9-16); Calcium 9.4 mg/dL (8.4-10.2); Carbon Dioxide 27 mmol/L (22-29); Chloride 95 mmol/L (96-108); Cholesterol 227 mg/dL; Estimated Glomerular Filt Rate 41; Estimated Glomerular Filt Rate 43; Glucose Random 150 mg/dL (60-115); HDL Cholesterol 51 mg/dL; LDL Cholesterol Calculated 123 mg/dl; Potassium 4.7 mmol/L (3.3-5.1); Sodium 131 mmol/L (135-145); Triglycerides 265 mg/dL
== END 2021-12-10 08:15 | disposition home or self-care (01) ==
LOC: HO.LAB 08:14
PROVIDERS: Absent Provider Internal Medicine Cardiovascular Disease; PCP Internal Medicine; Visit Provider Internal Medicine Gastroenterology
DX: I25.10 Atherosclerotic heart disease of native coronary artery without angina pectoris (principal)
CPT/HCPCS: 36415; 80048; 80061; 82565; 84450; 84460; 84520; 85025; 85610; 85730

== ENCOUNTER 2021-12-22 08:55 | Outpatient (REF) | payer OTHER, SELFPAY ==
--- NOTE | ~2021-12-22 | CT_ITS ---
EXAMINATION: CT ABDOMEN WITHOUT AND WITH CONTRAST CLINICAL INFORMATION: Upper abdominal pain COMPARISON: Previous CT of the abdomen and pelvis May 2021 TECHNIQUE: Contiguous axial thin section helical images of the abdomen were performed before and after the administration of oral contrast and 85 mL of Omnipaque 350 intravenous contrast. The data set was reformatted in the coronal and sagittal planes and reviewed on an independent workstation. This CT examination was performed using dose optimization techniques as appropriate, variously including the following: *Automated exposure control *Adjustment of mA and/or kV according to patient size (this includes techniques or standardized protocols for targeted exams where dose is matched to indication/reason for exam; i.e. extremities or head) *Use of iterative reconstruction technique DLP: 360 mGy-cm FINDINGS: LUNG BASES: The lung bases are clear. LIVER, GALLBLADDER, AND BILIARY TREE: The liver is slightly low in attenuation suggestive of mild fatty infiltration. The gallbladder has been removed. No focal liver lesion or biliary duct dilatation. PANCREAS: Normal SPLEEN: Normal ADRENAL GLANDS AND KIDNEYS: Normal BOWEL LOOPS: Normal LYMPH NODES: Normal VASCULAR: There is evidence of atherosclerotic disease. No aneurysm is seen. The abdominal aorta is normal in caliber. There is calcified plaque and a moderate stenosis of the proximal celiac axis. The SMA and CORBIN are patent. There are single renal arteries bilaterally. There is calcified plaque at the bilateral renal artery origins. There is a mild stenosis at the left proximal renal artery. There is an early or prehilar branching pattern of the left renal artery. BONES: There are degenerative changes of the spine. CT/CT abdomen wo/w con IMPRESSION: Atherosclerotic disease. No aneurysm. Calcified plaque and moderate stenosis at the origin of the celiac axis. The SMA and CORBIN are patent. Mild left renal artery stenosis. Fleischner guidelines were followed.
== END 2021-12-22 08:56 | disposition home or self-care (01) ==
LOC: HO.CT 08:55
PROVIDERS: PCP Internal Medicine; Visit Provider Internal Medicine Gastroenterology
DX: R10.10 Upper abdominal pain, unspecified (principal); R74.8 Abnormal levels of other serum enzymes
CPT/HCPCS: 74170

== ENCOUNTER → 2022-01-02 07:34 | Outpatient (BNVA) | payer OTHER, SELFPAY | PROVIDERS: PCP Internal Medicine; Visit Provider Internal Medicine Gastroenterology | DX: R10.10 Upper abdominal pain, unspecified (principal); R74.8 Abnormal levels of other serum enzymes; G43.909 Migraine, unspecified, not intractable, without status migrainosus; K21.9 Gastro-esophageal reflux disease without esophagitis; I77.1 Stricture of artery; K86.89 Other specified diseases of pancreas; K59.09 Other constipation; R11.2 Nausea with vomiting, unspecified; R19.7 Diarrhea, unspecified | CPT/HCPCS: 99212 ==

== ENCOUNTER 2022-01-24 18:13 | Emergency (ER) | payer OTHER, SELFPAY ==
--- NOTE | 2022-01-24 18:20 | ED_ITS ---
HPI - General Adult General Chief complaint: Weakness Stated complaint: WEAKNESS X'S 1 WEEK FROM HOME PER EMS Time Seen by Provider: 01/24/22 18:20 Source: patient Mode of arrival: EMS Limitations: no limitations History of Present Illness HPI narrative: Patient with history of celiac artery stenosis pancreatic insufficiency diabetes GERD came for 1 week of weakness just getting worse and for last 24 hours feelin g discomfort when she urinates no fever no chills slight nausea no vomiting no cough no shortness of breath complaining of diffuse abdominal pain no blood in the stool also patient has some headache which is chronic in the past Related Data Home Medications Medication Instructions Recorded Confirmed atorvastatin 80 mg tablet 80 mg PO DAILY 02/12/20 01/02/22 gabapentin 600 mg tablet 600 mg PO BID 02/12/20 01/02/22 lisinopril 40 mg tablet 40 mg PO DAILY 02/12/20 01/02/22 metformin 500 mg tablet 500 mg PO DAILY 02/12/20 01/02/22 aspirin 81 mg tablet,delayed 81 mg PO DAILY 07/10/20 01/02/22 release (Adult Low Dose Aspirin) trazodone 100 mg tablet 100 mg PO BEDTIME 07/19/20 01/02/22 fluticasone propionate 50 1 spray intranasal DAILY 03/16/21 01/02/22 mcg/actuation nasal spray,suspension hydrochlorothiazide 50 mg tablet 1 tab PO DAILY 03/16/21 01/02/22 ibuprofen 600 mg tablet 1 tab PO TID 03/16/21 01/02/22 metoprolol tartrate 25 mg tablet 1 tab PO BID 03/16/21 01/02/22 duloxetine 20 mg capsule,delayed 20 mg PO DAILY depression 09/26/21 01/02/22 release hydroxyzine HCl 25 mg tablet 25 mg PO TID PRN anxiety 09/26/21 01/02/22 triamcinolone acetonide 0.1 % 1 appl topical BID-TID 09/26/21 01/02/22 topical cream Previous Rx's Medication Instructions Recorded ondansetron HCl 4 mg tablet 4 mg PO BID-TID PRN for 10/28/20 nausea/vomiting #90 tabs polyethylene glycol 3350 17 17 g PO DAILY 30 days #510 grams 05/08/21 gram/dose oral powder (Miralax) sennosides 8.6 mg capsule (senna) 17.2 mg PO BEDTIME constipation 30 09/26/21 days #60 caps docusate sodium 100 mg capsule 100 mg PO DAILY #30 caps 10/22/21 linaclotide 290 mcg capsule 290 mcg PO QAM 30 days #30 caps 10/29/21 (Linzess) cholecalciferol (vitamin D3) 250 250 mcg PO 2XW 3 months #26 caps 11/06/21 mcg (10,000 unit) capsule [id number] 2 cap PO TID 30 days #180 caps 11/06/21 12,000-38,000-60,000 unit capsule,delayed rel (Creon) omeprazole 40 mg capsule,delayed 40 mg PO BID #180 caps 12/29/21 release sucralfate 1 gram tablet 1 g PO BID 30 days #60 tabs 01/02/22 magnesium oxide 400 mg PO DAILY #30 caps 01/25/22 Allergies Allergy/AdvReac Type Severity Reaction Status Date / Time cortisone [CORTISONE] Allergy Intermediate RASH Verified 01/02/22 07:39 hydrocortisone Allergy Intermediate Rash Verified 01/02/22 07:39 morphine [Morphine] Allergy Intermediate RASH, Verified 01/02/22 07:39 ITCHING oxycodone [From Percocet] Allergy Intermediate Nausea and Verified 01/02/22 07: 39 Vomiting Penicillins Allergy Intermediate ITCHING Verified 01/02/22 07:39 sulfamethoxazole Allergy Intermediate Rash Verified 01/02/22 07:39 [From Bactrim] trimethoprim [From Bactrim] Allergy Intermediate Rash Verified 01/02/22 07:39 Review of Systems Review of Systems: Yes all other systems are reviewed and are negative [facility] Past Medical History Medical History Diabetes GERD (gastroesophageal reflux disease) History of heart attack Neuropathy Pancreatic insufficiency Rheumatic arteritis Surgical History H/O colonoscopy with polypectomy History of bilateral carpal tunnel release History of cholecystectomy History of esophagogastroduodenoscopy (EGD) Hx of colonoscopy Hx of heart artery stent Family History Family History Father No problems noted. Mother No problems noted. Brother No problems noted. Sister Breast cancer Lymphoma Sister No problems noted. Sister No problems noted. Sister No problems noted. Social History Social History Household Members: None Are you a primary certified social workers in health care to a significant other at home: No Do you presently have visiting nurse or other home services: No Alcohol intake: never Patient Tobacco Use Status: Never used Tobacco Use of substances other than those prescribed or required for medical reasons: No Advance Directives: No Advance Directives Information Provided: Yes Current occupational status: unemployed and disabled Physical Exam ED Vital Signs: Vital Signs - 24 hr 01/24/22 18:26 01/24/22 18:34 01/24/22 20:19 Temperature 97.0 F 97.0 F Pulse Rate 64 64 61 Respiratory Rate 16 16 16 Blood Pressure 158/74 H 158/74 H 147/61 H Pulse Oximetry 100 100 98 Oxygen Delivery Method Room Air Room Air Room Air 01/24/22 23:47 Temperature Pulse Rate 65 Respiratory Rate 18 Blood Pressure 167/72 H Pulse Oximetry 99 Oxygen Delivery Method Room Air BMI result Body Mass Index 21.6 Appearance: Alert. Oriented X3. No acute distress. Eyes: PERRLA, No Nystagmus ENT: Pharynx normal. Oral Mucosa moist Neck: Normal inspection. Neck supple. CVS: Normal heart rate and rhythm. Pulses normal. Respiratory: No respiratory distress. Equal air entry bilateral, no wheezing/rales/rhonchi Abdomen: Soft , diffuse tenderness no rebound tenderness or guarding Bowel sounds are present, no mass palpable, no CVA tenderness Skin: Skin warm and dry. Normal skin color. Normal skin turgor. Extremities: No lower extremity edema. No calf tenderness Neuro: Oriented X 3. No motor deficit. No sensory deficit.No cerebellar signs , cranial nerves II-XII intact Medical Decision Making MDM Narrative Medical decision making narrative: Patient with generalized weakness noticed to be hypomagnesemic of 1 patient was given 2 g of IV magnesium will discharge patient home on magnesium oxide advised to drink plenty of fluids take the food which contains Hypomagnesium have some orange juice and bananas Lab Data Lab results reviewed: Yes I reviewed the patient's lab results. Result diagrams: 01/24/22 19:50 01/24/22 19:50 Labs: Lab Results 01/24/22 01/24/22 01/24/22 Range/Units 19:50 19:50 19:50 WBC 7.8 (4.8-10.8) X10*3/uL RBC 3.52 L (4.20-5.50) X10*6/uL Hgb 10.9 L (12.0-16.0) g/dl Hct 30.3 L (37.0-47.0) % MCV 86.1 (80.0-98.0) fL MCH 31.0 (27.0-33.0) pg MCHC 36.0 H (31.0-35.0) g/dl RDW 12.1 (11.0-16.0) % Plt Count 232 (160-400) X10*3/uL MPV 10.7 (9.4-12.3) fL Immature Gran % (Auto) 0.5 H (0.0-0.4) % Neut % (Auto) 61.4 (45-73) % Lymph % (Auto) 27.4 (20-40) % [place] % (Auto) 7.8 (2-11) % Eos % (Auto) 2.0 (0-4) % Baso % (Auto) 0.9 (0-2) % Lymph # (Auto) 2.1 (1.2-4.9) X10*3/uL [place] # (Auto) 0.6 (0.1-1.2) X10*3/uL Eos # (Auto) 0.2 (0.0-0.4) X10*3/uL Baso # (Auto) 0.1 (0.0-0.2) X10*3/uL Abs Immat Gran (auto) 0.04 H (0.00-0.03) X10*3/uL Absolute Neuts (auto) 4.8 (2.0-8.3) x10*3/uL Absolute Nucleated RBC 0.000 (0.0-0.012) X10*3/uL Nucleated RBC % (auto) 0.0 (0.0-0.2) /100WBC Sodium 137 (135-145) mmol/L Potassium 3.4 D (3.3-5.1) mmol/L Chloride 102 (96-108) mmol/L Carbon Dioxide 22 (22-29) mmol/L Anion Gap 16 (12-20) BUN 14 (9-16) mg/dL Creatinine 0.79 (0.5-1.4) mg/dL Estim Creat Clear Calc 56.4 Estimated GFR > 60 Random Glucose 114 (60-115) mg/dL Lactic Acid 1.7 (0.5-2.0) mmol/L Calcium 8.8 D (8.4-10.2) mg/dL Magnesium 1.0 L* (1.6-2.6) mg/dL Total Bilirubin 0.4 (0.0-1.0) mg/dL AST 15 (5-31) U/L ALT 12 (0-31) U/L Alkaline Phosphatase 58 D (39-117) U/L Total Protein 5.9 L (6.5-8.0) g/dL Albumin 3.5 (3.5-5.0) g/dL Urine Color Urine Appearance Urine pH (5.0-9.0) Ur Specific [place] (1.005-1.025) Urine Protein (Neg-Trace) mg/dL Urine Glucose (UA) (Negative) mg/dL Urine Ketones (Negative) mg/dL Urine Blood (Negative) Urine Nitrite (Negative) Ur Leukocyte Esterase (Negative) COVID-19 (KATIE) (Negative) COVID-19 Clin Com 01/24/22 01/24/22 Range/Units 19:50 23:00 WBC (4.8-10.8) X10*3/uL RBC (4.20-5.50) X10*6/uL Hgb (12.0-16.0) g/dl Hct (37.0-47.0) % MCV (80.0-98.0) fL MCH (27.0-33.0) pg MCHC (31.0-35.0) g/dl RDW (11.0-16.0) % Plt Count (160-400) X10*3/uL MPV (9.4-12.3) fL Immature Gran % (Auto) (0.0-0.4) % Neut % (Auto) (45-73) % Lymph % (Auto) (20-40) % [place] % (Auto) (2-11) % Eos % (Auto) (0-4) % Baso % (Auto) (0-2) % Lymph # (Auto) (1.2-4.9) X10*3/uL [place] # (Auto) (0.1-1.2) X10*3/uL Eos # (Auto) (0.0-0.4) X10*3/uL Baso # (Auto) (0.0-0.2) X10*3/uL Abs Immat Gran (auto) (0.00-0.03) X10*3/uL Absolute Neuts (auto) (2.0-8.3) x10*3/uL Absolute Nucleated RBC (0.0-0.012) X10*3/uL Nucleated RBC % (auto) (0.0-0.2) /100WBC Sodium (135-145) mmol/L Potassium (3.3-5.1) mmol/L Chloride (96-108) mmol/L Carbon Dioxide (22-29) mmol/L Anion Gap (12-20) BUN (9-16) mg/dL Creatinine (0.5-1.4) mg/dL Estim Creat Clear Calc Estimated GFR Random Glucose (60-115) mg/dL Lactic Acid (0.5-2.0) mmol/L Calcium (8.4-10.2) mg/dL Magnesium (1.6-2.6) mg/dL Total Bilirubin (0.0-1.0) mg/dL AST (5-31) U/L ALT (0-31) U/L Alkaline Phosphatase (39-117) U/L Total Protein (6.5-8.0) g/dL Albumin (3.5-5.0) g/dL Urine Color Yellow Urine Appearance Clear Urine pH 6.5 (5.0-9.0) Ur Specific [place] 1.010 (1.005-1.025) Urine Protein Negative (Neg-Trace) mg/dL Urine Glucose (UA) Negative (Negative) mg/dL Urine Ketones Negative (Negative) mg/dL Urine Blood Negative (Negative) Urine Nitrite Negative (Negative) Ur Leukocyte Esterase Negative (Negative) COVID-19 (KATIE) Negative (Negative) COVID-19 Clin Com See Note Discharge Plan Discharge Clinical Impression: Hypomagnesemia Patient Disposition: Home, Self-Care Instructions: Hypomagnesemia (ED) Additional Instructions: Have food containing high magnesium like almonds, banana, avocado, and leafy vegetables Take magnesium oxide tablets daily Follow-up with your primary care doctor to recheck your magnesium level in 2 weeks Consuma alimentos que contengan un alto contenido de magnesio, roxana almendras, pl?rosemarie, aguacate y verduras de hoja [place] tabletas de ?xido de magnesio diariamente Ar un seguimiento con massey m?dico de atenci?n primaria para volver a controlar massey nivel de magnesio en 2 semanas Prescriptions: New magnesium oxide 400 mg magnesium capsule 400 mg PO DAILY Qty: 30 0RF No Action ondansetron HCl 4 mg tablet 4 mg PO BID-TID PRN (Reason: for nausea/vomiting) Qty: 90 1RF docusate sodium 100 mg capsule 100 mg PO DAILY Qty: 30 1RF Linzess 290 mcg capsule 290 mcg PO QAM 30 Days Qty: 30 3RF omeprazole 40 mg capsule,delayed release(DR/EC) 40 mg PO BID Qty: 180 1RF hydrochlorothiazide 50 mg tablet 1 tab PO DAILY ibuprofen 600 mg tablet 1 tab PO TID fluticasone propionate 50 mcg/actuation spray,suspension 1 spray intranasal DAILY metoprolol tartrate 25 mg tablet 1 tab PO BID atorvastatin 80 mg tablet 80 mg PO DAILY lisinopril 40 mg tablet 40 mg PO DAILY metformin 500 mg tablet 500 mg PO DAILY gabapentin 600 mg tablet 600 mg PO BID aspirin [Adult Low Dose Aspirin] 81 mg tablet,delayed release (DR/EC) 81 mg PO DAILY trazodone 100 mg tablet 100 mg PO BEDTIME polyethylene glycol 3350 [Miralax] 17 gram/dose powder 17 g PO DAILY 30 Days Qty: 510 3RF triamcinolone acetonide 0.1 % cream 1 appl topical BID-TID hydroxyzine HCl 25 mg tablet 25 mg PO TID PRN (Reason: anxiety) duloxetine 20 mg capsule,delayed release(DR/EC) 20 mg PO DAILY senna 8.6 mg capsule 17.2 mg PO BEDTIME 30 Days Qty: 60 3RF Creon 12,000-38,000 -60,000 unit capsule,delayed release(DR/EC) 2 cap PO TID 30 Days Qty: 180 3RF Rx Instructions: administer with meals and/or snacks cholecalciferol (vitamin D3) 250 mcg (10,000 unit) capsule 250 mcg PO 2XW 90 Days Qty: 26 1RF sucralfate 1 gram tablet 1 g PO BID 30 Days Qty: 60 3RF Print Language: [place]
[2022-01-24 18:26] VITALS: BP 143/80; BP 158/74; PULSE 60; PULSE 64; RESP 16; TEMP 36.1; O2SAT 100; BMI 21.6
[2022-01-24 18:34] VITALS: BP 158/74; PULSE 64; RESP 16; TEMP 36.1; O2SAT 100
[2022-01-24] MEDS: 0.9 % Sodium Chloride 1,000 ML 999 ML IV (18:41)
[2022-01-24] MEDS: ondansetron HCL 4 MG/2 ML VIAL IVPUSH (19:32)
[2022-01-24] MEDS: HYDROmorphone HCl 0.5 MG/0.5 ML SYRINGE IVPUSH (19:32)
[2022-01-24 19:57] LABS: MANUAL DIFF FLAG NO
--- NOTE | 2022-01-24 19:58 | PC.NURSE ---
Pt resting on stretcher, c/o 12/24 headache at this time. Medicated as per [facility] orders for headache. Awaiting lab results at this time. Will continue to monitor.
[2022-01-24 20:06] LABS: Basophils Absolute Auto 0.1 X10*3/uL (0.0-0.2); Basophils Percent Auto 0.9 % (0-2); Eosinophils Absolute Auto 0.2 X10*3/uL (0.0-0.4); Hematocrit 30.3 % (37.0-47.0); Hemoglobin 10.9 g/dl (12.0-16.0); Imm Gran Abs Auto 0.04 X10*3/uL (0.00-0.03); Imm Gran Pct Auto 0.5 % (0.0-0.4); Lymphocytes Absolute Auto 2.1 X10*3/uL (1.2-4.9); Lymphocytes Percent Auto 27.4 % (20-40); Mean Corpuscular Volume 86.1 fL (80.0-98.0); Mean Platelet Volume 10.7 fL (9.4-12.3); Monocytes Absolute Auto 0.6 X10*3/uL (0.1-1.2); Monocytes Percent Auto 7.8 % (2-11); Neutrophils Absolute Auto 4.8 x10*3/uL (2.0-8.3); Neutrophils Percent Auto 61.4 % (45-73); Platelet Count 232 X10*3/uL (160-400); Red Blood Count 3.52 X10*6/uL (4.20-5.50); Red Cell Distribution Width 12.1 % (11.0-16.0); White Blood Count 7.8 X10*3/uL (4.8-10.8)
[2022-01-24 20:11] LABS: Lactic Acid 1.7 mmol/L (0.5-2.0)
[2022-01-24 20:12] LABS: COVID-19 Test Negative (Negative)
[2022-01-24 20:19] VITALS: BP 147/61; PULSE 61; RESP 16; O2SAT 98
[2022-01-24 20:36] LABS: Alanine Aminotransferase 12 U/L (0-31); Albumin Level 3.5 g/dL (3.5-5.0); Alkaline Phosphatase 58 U/L (39-117); Anion Gap 16 (12-20); Aspartate Amino Transferase 15 U/L (5-31); Bilirubin Total 0.4 mg/dL (0.0-1.0); Blood Urea Nitrogen 14 mg/dL (9-16); Calcium 8.8 mg/dL (8.4-10.2); Carbon Dioxide 22 mmol/L (22-29); Chloride 102 mmol/L (96-108); Creatinine Clr Calc Pharmacy 56.4; Estimated Glomerular Filt Rate > 60; Glucose Random 114 mg/dL (60-115); Potassium 3.4 mmol/L (3.3-5.1); Sodium 137 mmol/L (135-145); Total Protein 5.9 g/dL (6.5-8.0)
[2022-01-24] MEDS: Magnesium Sulfate/H2O 2 GM/50 ML PIGGYBACK IV (21:26)
--- NOTE | 2022-01-24 22:19 | PC.NURSE ---
Pt OOB to BR, unable to give urine sample at this time. MD aware, will continue to monitor.
[2022-01-24 23:06] LABS: Appearance Urine Clear; Color Urine Yellow; Glucose Urine UA Negative (Negative); Leukocyte Esterase Urine Negative (Negative); Nitrite Urine Negative (Negative); PH 6.5 (5.0-9.0); Urine Blood Negative (Negative); Urine Ketones Negative (Negative); Urine Protein Negative (Neg-Trace)
[2022-01-24 23:47] VITALS: BP 167/72; PULSE 65; RESP 18; O2SAT 99
--- NOTE | 2022-01-25 00:43 | PC.NURSE ---
RN called and spoke to son Shameka at number listed on file. Son agreeable to come and rock picker the patient, inquired about findings with information provided. RN and MD to bedside with staff development nurse to provided results and disposition, son was noted to be on speaker phone during this time. Pt offered sandwich but declined as son will be bringing her food to eat. Pt given OJ per MD recommendations.
== END 2022-01-25 01:33 | disposition home or self-care (01) ==
PROVIDERS: Emergency Provider Internal Medicine
DX: E83.42 Hypomagnesemia (principal); R53.1 Weakness; R51.9 Headache, unspecified; Z20.822 Contact with and (suspected) exposure to COVID-19; E11.9 Type 2 diabetes mellitus without complications; Z79.02 Long term (current) use of antithrombotics/antiplatelets; Z79.899 Other long term (current) drug therapy; Z79.82 Long term (current) use of aspirin; Z79.84 Long term (current) use of oral hypoglycemic drugs
CPT/HCPCS: 80053; 81003; 83605; 83735; 85025; 87040; 87635; 96361; 96365; 96375; 99284; J1170; J2405; J3475

== ENCOUNTER 2022-02-19 07:14 | Outpatient (REF) | payer OTHER, SELFPAY ==
[2022-02-19 08:00] LABS: Hemoglobin 11.2 g/dl (12.0-16.0); Mean Corpuscular HGB Conc 33.9 g/dl (31.0-35.0); Mean Corpuscular Hemoglobin 30.5 pg (27.0-33.0); Mean Corpuscular Volume 89.9 fL (80.0-98.0); Mean Platelet Volume 11.1 fL (9.4-12.3); Platelet Count 272 X10*3/uL (160-400); Red Blood Count 3.67 X10*6/uL (4.20-5.50); Red Cell Distribution Width 12.9 % (11.0-16.0); White Blood Count 7.4 X10*3/uL (4.8-10.8)
[2022-02-19 08:05] LABS: INTERNATIONAL NORM RATIO 0.9 (0.9-1.1); Prothrombin Time 10.7 SEC (10.0-13.1)
[2022-02-19 08:26] LABS: Anion Gap 14 (12-20); Blood Urea Nitrogen 10 mg/dL (9-16); Carbon Dioxide 30 mmol/L (22-29); Chloride 95 mmol/L (96-108); Estimated Glomerular Filt Rate > 60; Potassium 4.5 mmol/L (3.3-5.1); Sodium 134 mmol/L (135-145)
== END 2022-02-19 07:15 | disposition home or self-care (01) ==
LOC: HO.LAB 07:14
PROVIDERS: PCP Internal Medicine; Visit Provider Radiology Vascular & Interventional Radiology
DX: K55.059 Acute (reversible) ischemia of intestine, part and extent unspecified (principal)
CPT/HCPCS: 36415; 80051; 82565; 84520; 85027; 85610

== ENCOUNTER 2022-03-13 15:21 | Outpatient (REF) | payer OTHER, SELFPAY ==
--- NOTE | ~2022-03-13 | MM_ITS ---
EXAMINATION: MM SCREENING DIGITAL BREAST TOMOSYNTHESIS, BILATERAL CLINICAL INFORMATION: Screening. Asymptomatic. Family history breast cancer, sister age 45. The lifetime risk of breast cancer based on the Tyrer-Cuzick Model is 13%. COMPARISON: Mammography: 11/03/2020, 05/19/2018, 10/03/2016 TECHNIQUE: Digital breast tomosynthesis is performed in both the craniocaudal and mediolateral oblique views along with computer-aided detection (CAD). Synthesized 2D images are generated from the tomosynthesis. Additional right MLO view is provided. FINDINGS: There are scattered areas of fibroglandular density (ACR BI-RADS breast composition Category b). There are no significant masses, abnormal calcifications, or other abnormalities. Parenchymal pattern is similar to prior studies. There is no developing density or architectural abnormality. The axilla and skin contours are unremarkable. No significant changes. MM/MM tomosynthesis screening BI IMPRESSION: No mammographic evidence of malignancy. ASSESSMENT: BI-RADS 1: Negative RECOMMENDATION: Routine annual mammography screening. This patient's information was entered into a reminder system with a target due date for their next mammogram.
== END 2022-03-13 15:22 | disposition home or self-care (01) ==
LOC: HO.MAMMO 15:21
PROVIDERS: PCP Internal Medicine; Visit Provider Internal Medicine
DX: Z12.31 Encounter for screening mammogram for malignant neoplasm of breast (principal)
CPT/HCPCS: 77063; 77067

== ENCOUNTER → 2022-03-20 15:01 | Outpatient (BNVA) | payer OTHER, SELFPAY | PROVIDERS: PCP General Practice; Visit Provider Internal Medicine Gastroenterology | DX: R19.7 Diarrhea, unspecified (principal); R11.2 Nausea with vomiting, unspecified; K91.5 Postcholecystectomy syndrome; R10.10 Upper abdominal pain, unspecified; K59.09 Other constipation; D64.9 Anemia, unspecified; R74.8 Abnormal levels of other serum enzymes; K86.89 Other specified diseases of pancreas; K21.9 Gastro-esophageal reflux disease without esophagitis; I77.1 Stricture of artery | CPT/HCPCS: 99212 ==

== ENCOUNTER 2022-03-23 09:59 | Outpatient (REF) | payer OTHER, SELFPAY ==
[2022-03-23 10:16] LABS: MANUAL DIFF FLAG NO
[2022-03-23 10:57] LABS: Basophils Absolute Auto 0.1 X10*3/uL (0.0-0.2); Basophils Percent Auto 1.3 % (0-2); Eosinophils Absolute Auto 0.2 X10*3/uL (0.0-0.4); Eosinophils Percent Auto 2.9 % (0-4); Hematocrit 34.8 % (37.0-47.0); Hemoglobin 11.5 g/dl (12.0-16.0); Imm Gran Abs Auto 0.03 X10*3/uL (0.00-0.03); Imm Gran Pct Auto 0.4 % (0.0-0.4); Lymphocytes Absolute Auto 2.9 X10*3/uL (1.2-4.9); Lymphocytes Percent Auto 38.5 % (20-40); Mean Corpuscular Hemoglobin 30.3 pg (27.0-33.0); Mean Corpuscular Volume 91.6 fL (80.0-98.0); Mean Platelet Volume 11.5 fL (9.4-12.3); Monocytes Absolute Auto 0.6 X10*3/uL (0.1-1.2); Monocytes Percent Auto 8.4 % (2-11); Neutrophils Absolute Auto 3.7 x10*3/uL (2.0-8.3); Neutrophils Percent Auto 48.5 % (45-73); Platelet Count 273 X10*3/uL (160-400); Red Cell Distribution Width 13.2 % (11.0-16.0); White Blood Count 7.5 X10*3/uL (4.8-10.8)
[2022-03-23 11:32] LABS: Alanine Aminotransferase 20 U/L (0-31); Albumin Level 4.3 g/dL (3.5-5.0); Alkaline Phosphatase 66 U/L (39-117); Aspartate Amino Transferase 23 U/L (5-31); Bilirubin Direct 0.2 mg/dL (0.0-0.5); Bilirubin Total 0.6 mg/dL (0.0-1.0); C Reactive Protein 0.04 mg/dL (< or = 0.50); Lipase 317 U/L (8-78); Total Protein 7.2 g/dL (6.5-8.0)
[2022-03-23 11:35] LABS: Magnesium 1.4 mg/dL (1.6-2.6)
== END 2022-03-23 10:00 | disposition home or self-care (01) ==
LOC: HO.LAB 09:59
PROVIDERS: Visit Provider Internal Medicine Gastroenterology
DX: R10.10 Upper abdominal pain, unspecified (principal)
CPT/HCPCS: 36415; 80076; 83690; 83735; 85025; 86140

== ENCOUNTER → 2022-04-16 07:57 | Outpatient (BNVA) | payer OTHER, SELFPAY | PROVIDERS: PCP General Practice; Referring Provider General Practice; Visit Provider Internal Medicine Gastroenterology | DX: R10.10 Upper abdominal pain, unspecified (principal); R19.7 Diarrhea, unspecified; R11.2 Nausea with vomiting, unspecified; K91.5 Postcholecystectomy syndrome; R74.8 Abnormal levels of other serum enzymes; K59.09 Other constipation; K21.9 Gastro-esophageal reflux disease without esophagitis; I77.1 Stricture of artery; D64.9 Anemia, unspecified; K86.89 Other specified diseases of pancreas | CPT/HCPCS: 99212 ==

== ENCOUNTER 2022-07-13 08:21 | Outpatient (REF) | payer OTHER, SELFPAY ==
[2022-07-13 09:12] LABS: Magnesium 1.5 mg/dL (1.6-2.6)
== END 2022-07-13 08:22 | disposition home or self-care (01) ==
LOC: HO.LAB 08:21
PROVIDERS: PCP General Practice; Visit Provider General Practice
DX: K86.89 Other specified diseases of pancreas (principal); E83.42 Hypomagnesemia
CPT/HCPCS: 36415; 83735

== ENCOUNTER 2022-08-03 05:46 | Outpatient (REF) | payer OTHER, SELFPAY ==
[2022-08-03 05:48] LABS: MANUAL DIFF FLAG NO
[2022-08-03 07:20] LABS: Basophils Absolute Auto 0.1 X10*3/uL (0.0-0.2); Basophils Percent Auto 1.3 % (0-2); Eosinophils Absolute Auto 0.4 X10*3/uL (0.0-0.4); Eosinophils Percent Auto 4.9 % (0-4); Hematocrit 24.6 % (37.0-47.0); Imm Gran Abs Auto 0.07 X10*3/uL (0.00-0.03); Imm Gran Pct Auto 0.8 % (0.0-0.4); Lymphocytes Absolute Auto 1.9 X10*3/uL (1.2-4.9); Lymphocytes Percent Auto 21.7 % (20-40); Mean Corpuscular HGB Conc 32.5 g/dl (31.0-35.0); Mean Corpuscular Hemoglobin 30.4 pg (27.0-33.0); Mean Corpuscular Volume 93.5 fL (80.0-98.0); Mean Platelet Volume 10.3 fL (9.4-12.3); Monocytes Absolute Auto 0.9 X10*3/uL (0.1-1.2); Monocytes Percent Auto 10.2 % (2-11); Neutrophils Absolute Auto 5.4 x10*3/uL (2.0-8.3); Neutrophils Percent Auto 61.1 % (45-73); Platelet Count 552 X10*3/uL (160-400); Red Blood Count 2.63 X10*6/uL (4.20-5.50); Red Cell Distribution Width 15.5 % (11.0-16.0); White Blood Count 8.8 X10*3/uL (4.8-10.8)
[2022-08-03 07:32] LABS: Alanine Aminotransferase 7 U/L (0-31); Albumin Level 2.5 g/dL (3.5-5.0); Alkaline Phosphatase 80 U/L (39-117); Anion Gap 13 (12-20); Aspartate Amino Transferase 16 U/L (5-31); Bilirubin Total 0.3 mg/dL (0.0-1.0); Blood Urea Nitrogen 11 mg/dL (9-16); Calcium 8.2 mg/dL (8.4-10.2); Carbon Dioxide 20 mmol/L (22-29); Chloride 107 mmol/L (96-108); Estimated Glomerular Filt Rate > 60; Glucose Random 127 mg/dL (60-115); Potassium 3.9 mmol/L (3.3-5.1); Sodium 136 mmol/L (135-145); Total Protein 4.8 g/dL (6.5-8.0)
== END 2022-08-03 05:47 | disposition home or self-care (01) ==
LOC: HO.MMNH2L 05:46
PROVIDERS: Visit Provider Family Medicine
DX: I25.10 Atherosclerotic heart disease of native coronary artery without angina pectoris (principal)
CPT/HCPCS: 36415; 80053; 85025

== ENCOUNTER 2022-08-10 06:21 | Outpatient (REF) | payer OTHER, SELFPAY ==
[2022-08-10 06:10] LABS: MANUAL DIFF FLAG NO
[2022-08-10 06:36] LABS: Basophils Absolute Auto 0.1 X10*3/uL (0.0-0.2); Basophils Percent Auto 1.5 % (0-2); Eosinophils Absolute Auto 0.8 X10*3/uL (0.0-0.4); Eosinophils Percent Auto 8.5 % (0-4); Hematocrit 30.5 % (37.0-47.0); Hemoglobin 9.7 g/dl (12.0-16.0); Imm Gran Abs Auto 0.05 X10*3/uL (0.00-0.03); Imm Gran Pct Auto 0.5 % (0.0-0.4); Lymphocytes Absolute Auto 2.4 X10*3/uL (1.2-4.9); Lymphocytes Percent Auto 26.3 % (20-40); Mean Corpuscular HGB Conc 31.8 g/dl (31.0-35.0); Mean Corpuscular Hemoglobin 29.9 pg (27.0-33.0); Mean Corpuscular Volume 94.1 fL (80.0-98.0); Mean Platelet Volume 10.1 fL (9.4-12.3); Monocytes Absolute Auto 0.8 X10*3/uL (0.1-1.2); Monocytes Percent Auto 8.3 % (2-11); Neutrophils Absolute Auto 5.1 x10*3/uL (2.0-8.3); Neutrophils Percent Auto 54.9 % (45-73); Platelet Count 647 X10*3/uL (160-400); Red Blood Count 3.24 X10*6/uL (4.20-5.50); Red Cell Distribution Width 15.2 % (11.0-16.0); White Blood Count 9.3 X10*3/uL (4.8-10.8)
[2022-08-10 07:00] LABS: Anion Gap 16 (12-20); Blood Urea Nitrogen 9 mg/dL (9-16); Calcium 8.7 mg/dL (8.4-10.2); Carbon Dioxide 21 mmol/L (22-29); Chloride 105 mmol/L (96-108); Estimated Glomerular Filt Rate > 60; Glucose Random 95 mg/dL (60-115); Potassium 4.7 mmol/L (3.3-5.1); Sodium 137 mmol/L (135-145)
== END 2022-08-10 06:22 | disposition home or self-care (01) ==
LOC: HO.MMNH2L 06:21
PROVIDERS: Visit Provider Family Medicine
DX: Z02.2 Encounter for examination for admission to residential institution (principal); I25.10 Atherosclerotic heart disease of native coronary artery without angina pectoris
CPT/HCPCS: 36415; 80048; 85025

== ENCOUNTER 2022-08-17 | Outpatient (REF) | payer OTHER, SELFPAY | END 2022-08-17 00:01 | disposition home or self-care (01) | LOC: CF | PROVIDERS: Visit Provider Internal Medicine Gastroenterology | DX: R74.8 Abnormal levels of other serum enzymes (principal); K86.89 Other specified diseases of pancreas | CPT/HCPCS: 99212 ==

== ENCOUNTER 2022-08-31 07:17 | Outpatient (REF) | payer OTHER, SELFPAY ==
[2022-08-31 07:33] LABS: MANUAL DIFF FLAG NO
[2022-08-31 07:38] LABS: Basophils Absolute Auto 0.1 X10*3/uL (0.0-0.2); Basophils Percent Auto 1.1 % (0-2); Eosinophils Absolute Auto 0.6 X10*3/uL (0.0-0.4); Eosinophils Percent Auto 4.6 % (0-4); Hemoglobin 11.4 g/dl (12.0-16.0); Imm Gran Abs Auto 0.05 X10*3/uL (0.00-0.03); Imm Gran Pct Auto 0.4 % (0.0-0.4); Lymphocytes Absolute Auto 3.8 X10*3/uL (1.2-4.9); Lymphocytes Percent Auto 30.2 % (20-40); Mean Corpuscular HGB Conc 31.7 g/dl (31.0-35.0); Mean Corpuscular Hemoglobin 28.9 pg (27.0-33.0); Mean Corpuscular Volume 91.4 fL (80.0-98.0); Mean Platelet Volume 10.3 fL (9.4-12.3); Monocytes Absolute Auto 1.3 X10*3/uL (0.1-1.2); Monocytes Percent Auto 10.1 % (2-11); Neutrophils Absolute Auto 6.7 x10*3/uL (2.0-8.3); Neutrophils Percent Auto 53.6 % (45-73); Platelet Count 425 X10*3/uL (160-400); Red Blood Count 3.94 X10*6/uL (4.20-5.50); Red Cell Distribution Width 14.7 % (11.0-16.0); White Blood Count 12.4 X10*3/uL (4.8-10.8)
[2022-08-31 07:50] LABS: Estimated Average Glucose 120 mg/dL; Hemoglobin A1c % 5.8 %
[2022-08-31 08:03] LABS: Alanine Aminotransferase 8 U/L (0-31); Albumin Level 3.8 g/dL (3.5-5.0); Alkaline Phosphatase 120 U/L (39-117); Anion Gap 20 (12-20); Aspartate Amino Transferase 17 U/L (5-31); Bilirubin Direct 0.2 mg/dL (0.0-0.5); Bilirubin Total 0.4 mg/dL (0.0-1.0); Blood Urea Nitrogen 6 mg/dL (9-16); Calcium 9.1 mg/dL (8.4-10.2); Carbon Dioxide 20 mmol/L (22-29); Chloride 102 mmol/L (96-108); Estimated Glomerular Filt Rate > 60; Glucose Random 137 mg/dL (60-115); Iron 36 mcg/dL (30-160); Lipase 154 U/L (8-78); Percent Iron Saturation 16 % (15-50); Potassium 3.8 mmol/L (3.3-5.1); Sodium 138 mmol/L (135-145); Total Iron Binding Capacity 229 mcg/dL (228-428); Total Protein 6.8 g/dL (6.5-8.0); Unsaturated Iron Binding 193 ug/dL
[2022-08-31 08:08] LABS: B Type Natriuretic Peptide 68 pg/mL (<100)
[2022-08-31 08:25] LABS: Ferritin 299 ng/mL (10-250)
== END 2022-08-31 07:18 | disposition home or self-care (01) ==
LOC: HO.LAB 07:17
PROVIDERS: Absent Provider Internal Medicine Cardiovascular Disease; PCP General Practice; Visit Provider Internal Medicine Gastroenterology
DX: D64.9 Anemia, unspecified (principal); K86.89 Other specified diseases of pancreas; R10.10 Upper abdominal pain, unspecified; I42.9 Cardiomyopathy, unspecified; I25.10 Atherosclerotic heart disease of native coronary artery without angina pectoris
CPT/HCPCS: 36415; 80048; 80076; 82728; 83036; 83540; 83690; 83880; 85025

== ENCOUNTER → 2022-10-08 07:18 | Outpatient (BNVA) | payer OTHER, SELFPAY | PROVIDERS: PCP General Practice; Referring Provider General Practice; Visit Provider Internal Medicine Gastroenterology | DX: R19.7 Diarrhea, unspecified (principal); R11.2 Nausea with vomiting, unspecified; R10.10 Upper abdominal pain, unspecified; R74.8 Abnormal levels of other serum enzymes; R63.4 Abnormal weight loss; K59.09 Other constipation; K86.89 Other specified diseases of pancreas; K21.9 Gastro-esophageal reflux disease without esophagitis | CPT/HCPCS: 99212 ==

== ENCOUNTER 2022-10-13 11:11 | Outpatient (REF) | payer OTHER, SELFPAY ==
--- NOTE | ~2022-10-13 | MR_ITS ---
EXAMINATION: MR ABDOMEN WITHOUT CONTRAST CLINICAL INFORMATION: Abnormal levels of other serum enzymes COMPARISON: CT abdomen and pelvis 12/22/2021. TECHNIQUE: MR abdomen is performed without gadolinium contrast. FINDINGS: LUNG BASES: The visualized lung bases are unremarkable. LIVER, GALLBLADDER, AND BILIARY TREE: The liver is normal in size, smooth in contour, and normal in signal. No focal hepatic lesion or biliary ductal dilatation is present. The gallbladder is unremarkable with no evidence of gallbladder wall thickening, or obvious pericholecystic inflammatory changes on MRCP the common bile duct is of normal caliber without distention. No intraluminal filling defects seen. There is no intrahepatic ductal dilatation. CBD is visualized in its entire length with minimal bulbous distal end no obstructive lesion seen. PANCREAS: The pancreas is homogeneous echotexture. The pancreatic duct is seen measuring 3 mm in the body the pancreas. SPLEEN: Unremarkable. ADRENAL GLANDS: Unremarkable. KIDNEYS AND URETERS: The kidneys are normal in size and shape. No hydronephrosis. No perinephric stranding. GASTROINTESTINAL TRACT: There is scattered stool and gas seen throughout the colon without distention. The small bowel loops are normal caliber. ABDOMINAL WALL: No significant hernia is appreciated. LYMPH NODES: No lymphadenopathy. VASCULAR: Unremarkable. OSSEOUS STRUCTURES: No aggressive lytic or sclerotic process seen. MR/MR MRCP IMPRESSION: 1. No evidence of cholelithiasis, choledocholithiasis or biliary ductal dilatation. 2. The pancreatic duct is normal measuring 3 mm in the body of the pancreas. There is no common bile duct or intrahepatic ductal dictation. 3. Scattered stool and gas throughout the colon without distention.
== END 2022-10-13 11:12 | disposition home or self-care (01) ==
LOC: HO.MRI 11:11
PROVIDERS: PCP General Practice; Visit Provider Internal Medicine Gastroenterology
DX: R74.8 Abnormal levels of other serum enzymes (principal)
CPT/HCPCS: 74181

== ENCOUNTER 2022-10-30 08:59 | Outpatient (REF) | payer OTHER, SELFPAY ==
[2022-10-30 10:14] LABS: Alanine Aminotransferase 32 U/L (0-31); Albumin Level 3.8 g/dL (3.5-5.0); Alkaline Phosphatase 51 U/L (39-117); Anion Gap 17 (12-20); Aspartate Amino Transferase 51 U/L (5-31); Bilirubin Total 0.5 mg/dL (0.0-1.0); Blood Urea Nitrogen 10 mg/dL (9-16); Carbon Dioxide 22 mmol/L (22-29); Chloride 102 mmol/L (96-108); Estimated Glomerular Filt Rate > 60; Glucose Random 134 mg/dL (60-115); Potassium 3.8 mmol/L (3.3-5.1); Sodium 137 mmol/L (135-145); Total Protein 6.9 g/dL (6.5-8.0)
[2022-10-30 10:47] LABS: Folate 11.6 ng/mL (> or = 4.0); Vitamin B12 546 pg/mL (200-900)
[2022-10-30 10:48] LABS: HBS Num1 0.43 mIU/mL (0-7.99); HBc Num1 0.06 S/CO (0.00-0.79); HBsAGNum1 0.34 S/CO (0.00-0.99); HIV AB/AG Nonreactive (Nonreactive); HIV Num 1 0.06 S/CO (0.00-0.99); Hepatitis B Core Antibody Nonreactive (Nonreactive); Hepatitis B Surface Antigen Negative (Negative); ~HepC Num1 0.45 S/CO (0.00-0.79); ~Hepatitis B Surface Antibody NONREACTIVE (Nonreactive); ~Hepatitis C Antibody Nonreactive (Nonreactive)
[2022-11-02 20:28] LABS: TS Negative Control Passed; TS Panel A 0; TS Panel B 0; TS Positive Control Passed; TSpotTB Negative (Negative)
== END 2022-10-30 09:00 | disposition home or self-care (01) ==
LOC: HO.LAB 08:59
PROVIDERS: Visit Provider Internal Medicine Gastroenterology
DX: Z11.4 Encounter for screening for human immunodeficiency virus [HIV] (principal); Z11.1 Encounter for screening for respiratory tuberculosis; R10.10 Upper abdominal pain, unspecified; R63.4 Abnormal weight loss
CPT/HCPCS: 36415; 80053; 82607; 82746; 84134; 86481; 86704; 86706; 86803; 87340; 87389

== ENCOUNTER → 2022-11-03 10:03 | Outpatient (BNVA) | payer OTHER, SELFPAY | PROVIDERS: Visit Provider Internal Medicine | DX: R63.4 Abnormal weight loss (principal); Z68.1 Body mass index [BMI] 19.9 or less, adult; R11.0 Nausea; I77.1 Stricture of artery; R41.89 Other symptoms and signs involving cognitive functions and awareness | CPT/HCPCS: 99212 ==

== ENCOUNTER 2022-11-23 08:53 | Outpatient (REF) | payer OTHER, SELFPAY ==
--- NOTE | ~2022-11-23 | US_ITS ---
EXAMINATION: US SMA CLINICAL INFORMATION: Abdominal pain, weight loss COMPARISON: CT abdomen from 12/22/2021 TECHNIQUE: Color and spectral Doppler evaluation of the mesenteric vasculature. FINDINGS: AORTA: Patent with normal waveforms. Velocity proximal to the superior mesenteric artery measures 62 cm/s. Velocity distal to the superior mesenteric artery measures 73 cm/s. CELIAC ARTERY: Patent with normal waveforms. Inspiration supine: 143 cm/s Inspiration erect: 161 cm/s Expiration supine 159 cm/s Expiration erect: 180 cm/s SUPERIOR MESENTERIC ARTERY: Patent with normal waveforms. Proximal: 164 cm/s Mid: 146 cm/s Distal: 129 cm/s INFERIOR MESENTERIC ARTERY: Patent with normal waveforms. 296 cm/s SPLENIC ARTERY: Patent with normal waveforms. 79 cm/s HEPATIC ARTERY: Patent with normal waveforms. 217 cm/s US/US SMA IMPRESSION: Widely patent celiac and superior mesenteric arteries without stenosis or compression. Elevated velocity seen in the inferior mesenteric artery consistent with moderate stenosis
== END 2022-11-23 08:54 | disposition home or self-care (01) ==
LOC: HO.US 08:53
PROVIDERS: Visit Provider Internal Medicine
DX: R63.4 Abnormal weight loss (principal); I77.1 Stricture of artery
CPT/HCPCS: 93976

== ENCOUNTER 2022-11-30 16:02 | Outpatient (REF) | payer OTHER, SELFPAY ==
[2022-11-30 17:46] LABS: MANUAL DIFF FLAG NO
[2022-11-30 18:00] LABS: Basophils Absolute Auto 0.1 X10*3/uL (0.0-0.2); Eosinophils Absolute Auto 0.2 X10*3/uL (0.0-0.4); Eosinophils Percent Auto 2.1 % (0-4); Hemoglobin 10.4 g/dl (12.0-16.0); Imm Gran Abs Auto 0.02 X10*3/uL (0.00-0.03); Imm Gran Pct Auto 0.3 % (0.0-0.4); Lymphocytes Absolute Auto 2.6 X10*3/uL (1.2-4.9); Mean Corpuscular HGB Conc 32.5 g/dl (31.0-35.0); Mean Corpuscular Hemoglobin 28.7 pg (27.0-33.0); Mean Corpuscular Volume 88.4 fL (80.0-98.0); Mean Platelet Volume 11.2 fL (9.4-12.3); Monocytes Absolute Auto 0.8 X10*3/uL (0.1-1.2); Monocytes Percent Auto 11.4 % (2-11); Neutrophils Absolute Auto 3.6 x10*3/uL (2.0-8.3); Neutrophils Percent Auto 49.2 % (45-73); Platelet Count 277 X10*3/uL (160-400); Red Blood Count 3.62 X10*6/uL (4.20-5.50); White Blood Count 7.3 X10*3/uL (4.8-10.8)
[2022-11-30 18:49] LABS: Thyroid Stimulating Hormone 1.92 uIU/mL (0.32-4.0)
[2022-11-30 19:00] LABS: Magnesium 1.3 mg/dL (1.6-2.6)
== END 2022-11-30 16:03 | disposition home or self-care (01) ==
LOC: HO.HHCL 16:02
PROVIDERS: Visit Provider General Practice
DX: I10 Essential (primary) hypertension (principal)
CPT/HCPCS: 36415; 83735; 84443; 85025

== ENCOUNTER 2022-12-04 10:31 | Outpatient (REF) | payer OTHER, SELFPAY ==
--- NOTE | ~2022-12-04 | XR_ITS ---
EXAMINATION: XR CHEST CLINICAL INFORMATION: Chest pain COMPARISON: Previous chest x-ray May 2021 TECHNIQUE: 2 views of the chest were obtained. FINDINGS: New post CABG changes. The cardiac and mediastinal contours are otherwise stable. The lungs are clear. No pleural effusion or pneumothorax. Mild degenerative changes of the spine. XR/XR chest 2V IMPRESSION: No evidence for acute disease in the chest.
== END 2022-12-04 10:32 | disposition home or self-care (01) ==
LOC: HO.HHCX 10:31
PROVIDERS: Visit Provider General Practice
DX: R07.1 Chest pain on breathing (principal)
CPT/HCPCS: 71046

== ENCOUNTER 2022-12-09 11:17 | Outpatient (AMB) | payer OTHER, SELFPAY ==
--- NOTE | 2022-12-09 11:27 | MHC.OFFVIS ---
Intake Vital Signs 12/09/22 11:28 Height 5 ft 3 in Weight 115 lb BMI 20.4 BP 147/70 H Blood Pressure Location Lt brachial Position Sitting Pulse 84 Intake Visit Reasons: weight loss Intake Note: Sonia presents in the office as a follow up for weight loss. CC: She states that she is not having any complaints - she was in the ED again. Loss of Appetite, Low Magnesium, Tired and sometimes she has weakness. Core Stripper Required: Yes Core Stripper Name: Sister - Majo Allergies cortisone [CORTISONE] Allergy (Intermediate, Verified 12/09/22 11:35) RASH hydrocortisone Allergy (Intermediate, Verified 12/09/22 11:35) Rash morphine [Morphine] Allergy (Intermediate, Verified 12/09/22 11:35) RASH, ITCHING oxycodone [From Percocet] Allergy (Intermediate, Verified 12/09/22 11:35) Nausea and Vomiting Penicillins Allergy (Intermediate, Verified 12/09/22 11:35) ITCHING sulfamethoxazole [From Bactrim] Allergy (Intermediate, Verified 12/09/22 11:35) Rash trimethoprim [From Bactrim] Allergy (Intermediate, Verified 12/09/22 11:35) Rash acetaminophen [From Percocet] Allergy (Mild, Verified 12/09/22 11:35) Unknown azithromycin Allergy (Mild, Verified 12/09/22 11:35) Unknown doxycycline Allergy (Mild, Verified 12/09/22 11:35) Unknown tramadol Allergy (Mild, Verified 12/09/22 11:35) Unknown tylenol codeine Allergy (Mild, Uncoded 12/09/22 11:35) Unknown HPI HPI Comments History of Present Illness Details This is a 67y.o F with PMH of CAD, HTN, prediabetes, who is here for nausea and unintentional weight loss. 11/03/22: Pt is accompanied by her sister today who provides most of the history. Reports patient contracted COVID-19 infection was 2 years ago, and since then has been going downhill. Main complaint is lack of appetite and reduced intake, which is leading to persistent weight loss over the past 2 years. Patient weighed around 140 lb in early 2020, in weight today is 101 lb. Pt previously has been seen by Dr Guzman and has undergone extensive work up: Celiac testing- normal -2019 Immunoglobulin check-normal 2018, 2020 Immunofixation normal 2020 EGD: Distal descending nodule but otherwise normal. Gastritis. Path: No H pylori. No celiac. - 2020 Colonoscopy normal TI. Mild Mazin normal mucosa in right colon. Diverticulosis. Hemorrhoids. Path: Normal. No microscopic colitis. 2020 Gastric emptying study normal 2020. CT abdomen pelvis x2-no gastrointestinal or hepatobiliary lesion noted 2021. Mesenteric angiogram-[facility]- patent splanchnic vessels without stenosis or findings to suggest mesenteric ischemia - 2021 MRI without contrast, again no pancreatic or hepatobiliary abnormality noted. No lymphadenopathy. -2022 Infectious work up including hepatitis, HIV and TSPOT - negative - 2020,2021 and 2022. She has also been seen by hematology for non-iron deficiency anemia and after extensive work up which has returned negative, has been given PRN follow up since her anemia is improving on it own. On further review, it seems that patient has severe lack of interest in daily activities. Has 3 logistics associate will help her with her daily chores. Most the time she endorses no appetite, and when she does eat, she feels full very easily. Sometimes feels that food is getting stuck in upper throat. Sister reports she also has trouble with memory, and frequently repeats this sentences or words that she has just spoken. Has trouble remembering names of common use objects. 12/09/22: Comes in today with her sister. Reports [place] [facility] and was noted to have low K and Mg and started on supplements. Otherwise, much more alert and interactive today, smiling. Reports has gained almost 10 lbs since she was seen last time. Reports better energy levels as well as appetite since starting Mirtazipine. Is also moving her bowel more regularly now which she also thinks is contributing to better intake in turn. Has been seen by her Neurologist for follow up and underwent further neuro work up including EEG - they have an appt next month to go over results and management. ACTH stim test still pending - msg sent to team RN for follow up. Reviewed mesenteric US results which was indirectly suggestive of CORBIN stenosis given elevated velocities however repeat angiogram/ vascular surg evaluation deferred after reviewing with Dr Guzman given results of angio from 04/2022 (see above). [facility] Medical History Anemia Diabetes GERD (gastroesophageal reflux disease) History of heart attack Neuropathy Pancreatic insufficiency Rheumatic arteritis Surgical History H/O colonoscopy with polypectomy History of bilateral carpal tunnel release History of cholecystectomy History of esophagogastroduodenoscopy (EGD) History of open heart surgery Hx of cardiac catheterization Hx of colonoscopy Hx of heart artery stent Family History Father No problems noted. Mother No problems noted. Brother No problems noted. Sister Breast cancer Lymphoma Sister No problems noted. Sister No problems noted. Sister No problems noted. Social History Household Members: None Are you a primary healthcare sales representative to a significant other at home: No Do you presently have visiting nurse or other home services: No Alcohol intake: never Patient Tobacco Use Status: Never used Tobacco Current occupational status: unemployed and disabled Physical Exam Vital Signs: Last Vital Signs Pulse 84 12/09/22 11:28 BP 147/70 H 12/09/22 11:28 BMI result Body Mass Index 20.4 Gen appear: Pale appearing, undernourished HEENT: nonicteric, no cervical lymphadenopathy Chest: CTA CVS: Regular S1/S2 Abd: soft, nontender, nondistended, bowel sounds + Ext: no peripheral edema Neuro: A/Ox3 Assessment & Plan Assessment & Plan (1) Weight loss, non-intentional: Code(s): R63.4 - Abnormal weight loss (2) Cognitive impairment: Code(s): R41.89 - Other symptoms and signs involving cognitive functions and awareness (3) Depression: Code(s): F32.A - Depression, unspecified (4) Vitamin D deficiency: Code(s): E55.9 - Vitamin D deficiency, unspecified (5) Abnormal blood electrolyte level: Code(s): E87.8 - Other disorders of electrolyte and fluid balance, not elsewhere classified Plan (Reviewed with the pt and her sister that so far an organic etiology for her persistent weight loss appears unlikely as typical culprits such as gastrointestinal causes like malabsorption, chronic infections, or malignancy would have revealed itself over the span of two years that this has been going on. Quite concerned for possible dementia with or without superimposed depression contributing lack of appetite and therefore weight loss.) - Has had excellent response to addition of mirtazipine to not just appetite and weight, but also her energy levels and therefore do believe that some degree of mood disorder was playing a role. - Cont mirtazipine - ACTH stim test for adrenal insufficiency pending. Reviewed with team RN - ISAIAS appeal in process. - CORBIN stenosis suggested on doppler scan however since splanchnic angio was normal from 04/2022 and pt improving will defer repeat angio at this time but can be considered if any correlating sx develop. - Barium swallow pending which was ordered for sensation of food getting stuck reported at last visit. - DC summary from [facility] reviewed. Had hypomagnesemia as well as hypokalemia (which could have been 2/2 hypomag leading to K wasting). Will recheck electrolytes and replete as needed. Also rechecking Vit D, as has been low in past and can potentially affect Ca/Mg axis. Follow up in [address] Guzman Orders: Orders Basic Metabolic Panel Today E55.9 - Vitamin D deficiency, unspecified, R63.4 - Abnormal weight loss Calcium Today E55.9 - Vitamin D deficiency, unspecified, R63.4 - Abnormal weight loss Magnesium Today E55.9 - Vitamin D deficiency, unspecified, R63.4 - Abnormal weight loss Phosphorus Today E55.9 - Vitamin D deficiency, unspecified, R63.4 - Abnormal weight loss Vitamin D 25-OH Total Today E55.9 - Vitamin D deficiency, unspecified, R63.4 - Abnormal weight loss Coding Level of Care Code Est Pt Level 4 (17924) Diagnoses Weight loss, non-intentional R63.4 Cognitive impairment R41.89 Depression F32.A Vitamin D deficiency E55.9 Abnormal blood electrolyte level E87.8
[2022-12-09 11:28] VITALS: BP 147/70; PULSE 84; BMI 20.4
== END 2022-12-09 11:54 | disposition home or self-care (01) ==
PROVIDERS: PCP General Practice; Visit Provider Internal Medicine
DX: R63.4 Abnormal weight loss (principal); R41.89 Other symptoms and signs involving cognitive functions and awareness; F32.A Depression, unspecified; E55.9 Vitamin D deficiency, unspecified; E87.8 Other disorders of electrolyte and fluid balance, not elsewhere classified
CPT/HCPCS: 99214

== ENCOUNTER 2022-12-09 11:17 | Outpatient (REF) | payer OTHER, SELFPAY ==
[2022-12-09 13:05] LABS: Anion Gap 9 (12-20); Blood Urea Nitrogen 15 mg/dL (9-16); Calcium 9.4 mg/dL (8.4-10.2); Carbon Dioxide 31 mmol/L (22-29); Chloride 99 mmol/L (96-108); Estimated Glomerular Filt Rate > 60; Glucose Random 273 mg/dL (60-115); Magnesium 1.5 mg/dL (1.6-2.6); Phosphorus 3.5 mg/dL (2.7-4.5); Potassium 4.6 mmol/L (3.3-5.1); Sodium 134 mmol/L (135-145)
[2022-12-09 13:23] LABS: Vitamin D 25-OH Total 57.1 ng/mL (>30)
== END 2022-12-09 11:18 | disposition home or self-care (01) ==
LOC: HO.LAB 11:17
PROVIDERS: PCP General Practice; Visit Provider Internal Medicine
DX: R63.4 Abnormal weight loss (principal); E55.9 Vitamin D deficiency, unspecified; R41.89 Other symptoms and signs involving cognitive functions and awareness; F32.A Depression, unspecified; E87.8 Other disorders of electrolyte and fluid balance, not elsewhere classified
CPT/HCPCS: 36415; 80048; 82306; 83735; 84100; 99212

== ENCOUNTER 2022-12-14 09:01 | Outpatient (RCR) | payer OTHER, SELFPAY | END 2023-03-12 14:43 | disposition home or self-care (01) | LOC: HO.WCC 09:01 | PROVIDERS: PCP General Practice; Visit Provider Physician Assistant | DX: E11.621 Type 2 diabetes mellitus with foot ulcer (principal); E11.51 Type 2 diabetes mellitus with diabetic peripheral angiopathy without gangrene; L97.422 Non-pressure chronic ulcer of left heel and midfoot with fat layer exposed; E11.40 Type 2 diabetes mellitus with diabetic neuropathy, unspecified; I10 Essential (primary) hypertension; Z95.1 Presence of aortocoronary bypass graft | CPT/HCPCS: 11042; 97602; 99212 ==

== ENCOUNTER 2022-12-17 13:06 | Outpatient (REF) | payer OTHER, SELFPAY ==
[2022-12-17 14:43] LABS: Anion Gap 17 (12-20); Blood Urea Nitrogen 12 mg/dL (9-16); Calcium 10.2 mg/dL (8.4-10.2); Carbon Dioxide 24 mmol/L (22-29); Chloride 101 mmol/L (96-108); Estimated Glomerular Filt Rate > 60; Glucose Random 118 mg/dL (60-115); Magnesium 1.6 mg/dL (1.6-2.6); Potassium 3.6 mmol/L (3.3-5.1); Sodium 138 mmol/L (135-145)
== END 2022-12-17 13:07 | disposition home or self-care (01) ==
LOC: HO.LAB 13:06
PROVIDERS: PCP General Practice; Visit Provider Internal Medicine
DX: E87.8 Other disorders of electrolyte and fluid balance, not elsewhere classified (principal)
CPT/HCPCS: 36415; 80048; 83735

== ENCOUNTER 2023-01-07 08:43 | Outpatient (REF) | payer OTHER, SELFPAY ==
--- NOTE | ~2023-01-07 | US_ITS ---
EXAMINATION: Noninvasive assessment of the arteries of the left lower extremity include a PVR exam limited (1-2 levels) and VICENTA, bilateral. ? Maynor Yepez M.D. CLINICAL INFORMATION: Peripheral vascular disease COMPARISON: None TECHNIQUE: The ankle/brachial indices of the distal posterior tibial and the dorsalis pedis arteries were obtained of the left lower extremity arterial system; along with pressures and pulse volume recordings at the ankle and duplex Doppler techniques of the common femoral, proximal femoral and proximal profunda arteries. The study was performed at rest. ? FINDINGS AT REST:? LEFT LE. THE LEFT ANKLE-BRACHIAL INDEX IS: 1.56 (higher of the DP/PT) >0.97-1.25 = normal - no significant arterial disease 0.75-0.96 = mild peripheral arterial disease 0.50-0.74 = moderate peripheral arterial disease <0.50 = severe peripheral arterial disease <0.30 = critical arterial disease 2. SEGMENTAL PRESSURES: Ankle: PT 200 DP not obtained 3. PVR WAVEFORMS: Ankle: Abnormally blunted 4. DIRECT DUPLEX: There is fairly extensive atherosclerotic calcification throughout the left lower extremity arterial system. There are suspected areas of at least moderate stenosis in the mid to distal SFA. There is heterogeneous plaque throughout the posterior tibial artery with elevated velocities in the proximal posterior tibial artery measuring 239 cm/s. ? US/US VICENTA complete IMPRESSION: There is fairly extensive atherosclerotic calcification throughout the left lower extremity arterial system. There are suspected at least moderate stenosis in the mid to distal SFA and severe stenosis in the proximal posterior tibial artery. ABIs are nondiagnostic due to noncompressible vessels. The PVR waveforms are abnormally blunted. CTA of the lower extremity may help to better characterize the degree of hemodynamically significant stenosis in the left lower extremity.
--- NOTE | ~2023-01-07 | US_ITS ---
EXAMINATION: Noninvasive assessment of the arteries of the left lower extremity include a PVR exam limited (1-2 levels) and VICENTA, bilateral. ? Maynor Yepez M.D. CLINICAL INFORMATION: Peripheral vascular disease COMPARISON: None TECHNIQUE: The ankle/brachial indices of the distal posterior tibial and the dorsalis pedis arteries were obtained of the left lower extremity arterial system; along with pressures and pulse volume recordings at the ankle and duplex Doppler techniques of the common femoral, proximal femoral and proximal profunda arteries. The study was performed at rest. ? FINDINGS AT REST:? LEFT LE. THE LEFT ANKLE-BRACHIAL INDEX IS: 1.56 (higher of the DP/PT) >0.97-1.25 = normal - no significant arterial disease 0.75-0.96 = mild peripheral arterial disease 0.50-0.74 = moderate peripheral arterial disease <0.50 = severe peripheral arterial disease <0.30 = critical arterial disease 2. SEGMENTAL PRESSURES: Ankle: PT 200 DP not obtained 3. PVR WAVEFORMS: Ankle: Abnormally blunted 4. DIRECT DUPLEX: There is fairly extensive atherosclerotic calcification throughout the left lower extremity arterial system. There are suspected areas of at least moderate stenosis in the mid to distal SFA. There is heterogeneous plaque throughout the posterior tibial artery with elevated velocities in the proximal posterior tibial artery measuring 239 cm/s. ? US/US arterial duplex LE LT IMPRESSION: There is fairly extensive atherosclerotic calcification throughout the left lower extremity arterial system. There are suspected at least moderate stenosis in the mid to distal SFA and severe stenosis in the proximal posterior tibial artery. ABIs are nondiagnostic due to noncompressible vessels. The PVR waveforms are abnormally blunted. CTA of the lower extremity may help to better characterize the degree of hemodynamically significant stenosis in the left lower extremity.
== END 2023-01-07 08:44 | disposition home or self-care (01) ==
LOC: HO.US 08:43
PROVIDERS: Visit Provider Physician Assistant
DX: I73.9 Peripheral vascular disease, unspecified (principal)
CPT/HCPCS: 93923; 93926

== ENCOUNTER 2023-01-27 11:48 | Outpatient (REF) | payer OTHER, SELFPAY ==
[2023-01-27 13:58] LABS: Blood Urea Nitrogen 9 mg/dL (9-16); Estimated Glomerular Filt Rate > 60
== END 2023-01-27 11:49 | disposition home or self-care (01) ==
LOC: HO.LAB 11:48
PROVIDERS: PCP General Practice; Visit Provider Radiology Vascular & Interventional Radiology
DX: R79.89 Other specified abnormal findings of blood chemistry (principal); R94.4 Abnormal results of kidney function studies
CPT/HCPCS: 36415; 82565; 84520

== ENCOUNTER 2023-02-02 10:29 | Outpatient (REF) | payer OTHER, SELFPAY ==
[2023-02-02 12:46] LABS: Blood Urea Nitrogen 7 mg/dL (9-16); Estimated Glomerular Filt Rate > 60
== END 2023-02-02 10:30 | disposition home or self-care (01) ==
LOC: HO.LAB 10:29
PROVIDERS: PCP General Practice; Visit Provider Radiology Vascular & Interventional Radiology
DX: R79.89 Other specified abnormal findings of blood chemistry (principal); R94.4 Abnormal results of kidney function studies
CPT/HCPCS: 36415; 82565; 84520

== ENCOUNTER 2023-03-08 15:02 | Outpatient (REF) | payer OTHER, SELFPAY ==
--- NOTE | ~2023-03-08 | FL_ITS ---
EXAMINATION: Modified BARIUM SWALLOW CLINICAL INFORMATION: Dysphagia. COMPARISON: None available. TECHNIQUE: Modified barium swallow was performed under lateral fluoroscopy with patient in standing position. Different consistency of barium was administered by the speech therapist. FINDINGS: On oral administration of thin, nectar, honey,, saltine crackers and solid food coated with barium there is normal propagation of bolus from the oral cavity through the pharynx into the esophagus without obstruction narrowing. There is trace laryngeal penetration but no aspiration seen with thin barium Incidental finding of loss of C5-C6 disc height with ventral spondylosis noted. FLUOROSCOPY TIME: 1 minute and 19 seconds. DOSE AREA PRODUCT: 38.9 uGy-m2 (microgray-meter squared) FL/FL barium swallow modified IMPRESSION: . Laryngeal penetration but no aspiration on thin barium and nectar consistency barium. No laryngeal aspiration seen. No retention of food in the valleculae or piriform sinuses. Refer to speech therapy report for further clarification. .
--- NOTE | 2023-03-09 11:19 | MHC.SL.IMP ---
Date of Plan of Treatment: 03/08/23 Onset of Symptoms/Illness: 11/03/22 Date Treatment Started: 03/08/23 Admitting Diagnosis: Dysphagia Primary Speech & Language Diagnosis: R13.12 Oropharyngeal Phase Dysphagia Reason for Today's Visit: 84763 Modified Barium Swallow Study Pre-evaluation Dietary Consistencies: Regular Pre-evaluation Liquid Consistency: Thin Pre-evaluation Medication Administration: Whole with Liquid Medical History: Modified Barium Swallow Study Fluoroscopic Evaluation of Swallowing Function CPT Code 48317 Evaluation Year: 2022 Reason for Study: Pt reporting difficulty swallowing. Referring Physician: Karla Andre MD Evaluating Clinician: Tereza Mendoza MA, CCC-QUILTING SUPERVISOR Study Number: 1 Patient Name: Sonia Marcano Status: Outpatient, Ambulatory/Assisted Age: 67 Gender: Female Medical History Medical History Anemia Diabetes GERD (gastroesophageal reflux disease) History of heart attack Neuropathy Pancreatic insufficiency Rheumatic arteritis Surgical History H/O colonoscopy with polypectomy History of bilateral carpal tunnel release History of cholecystectomy History of esophagogastroduodenoscopy (EGD) History of open heart surgery Hx of cardiac catheterization Hx of colonoscopy Hx of heart artery stent Current (pre-evaluation) Intake/Diet: Route: PO Diet Grade: Regular Liquid Consistencies: Thin Pre-Study Functional Oral Intake Scale (FOIS): 7- Total oral intake with no restrictions Pain: None reported at time of study SUBJECTIVE: Pt is a 67 year old female with history of GERD, neuropathy, anemia, heart attack, pancreatic insufficiency, rheumatic arteritis, among other diagnoses. Pt was referred for a modified barium swallow study by Karla Andre MD of the Gatroenterology office, due to pt?s reports of experiencing globus sensation. Pt denied having any pain with swallowing. She endorsed that food feels stuck in her throat and at times, she vomits when eating. She reports onset to have occurred a few months ago. Oral Motor Exam Facial Symmetry: Symmetrical Mouth Occlusion: Normal Oral-Facial Teeth Characteristics: Intact/Normal Oral-Facial Smile (Lips) Description: Normal Oral-Facial Puff Cheeks Description: Normal Tongue Size: Normal Tongue Excursion Description: Normal Tongue Range of Movement Description: Normal Tongue Speed of Movement Description: Normal Tongue Strength of Movement (against opposing pressure): Normal Tongue Movement Characteristics: Normal/Absent Food and Liquid Trials: Oral Impairment: Lip Closure: Did not test Oral Impairment: Tongue Control During Bolus Hold: Did not test Oral Impairment: Bolus Preparation/Mastication: 2=Disorganized chewing/mashing with solid pieces of bolus Oral Impairment: Bolus Transport/Lingual Motion: 2=Slowed tongue motion Oral Impairment: Oral Residue: 2=Residue collection on oral structures Oral Impairment:Initiation of Pharyngeal Swallow: 3=Bolus head in pyriforms Pharyngeal Impairment: Soft Palate Elevation: 0=No bolus between soft palate (SP)/pharyngeal wall (PW) Pharyngeal Impairment: Laryngeal Elevation: 1=Partial thyroid cartilage/arytenoids to epiglottic petiole movement Pharyngeal Impairment: Anterior Hyoid Excursion: 1=Partial anterior movement Pharyngeal Impairment: Epiglottic Movement: 1=Partial inversion Pharyngeal Impairment: Laryngeal Vestibular Closure:: 1=Incomplete: narrow column air/contrast in laryngeal vestibule Pharyngeal Impairment: Pharyngeal Stripping Wave: 1=Present: diminished Pharyngeal Impairment: Pharyngeal Contraction: Did not test Pharyngeal Impairment: Pharyngoesophageal Segment Openin=Partial distention/partial duration: partial obstruction of flow Pharyngeal Impairment: Tongue Base (TB) Retraction: 2=Narrow column of contrast/air between TB and posterior PW Pharyngeal Impairment: Pharyngeal Residue: 2=Collection of residue within or on pharyngeal structures Pharyngeal Impairment: Esophageal Clearance Upright Position: Did not test Impressions and Recommendations Clinical Observations: OBJECTIVE: Time-out: performed at 15:30 Evaluation Start: 15:00; Stop: 15:05 Patient Positioning: Standing Viewing Planes: LATERAL ONLY Contrast: MBSImP? Standardized Protocol using commercially prepared, standardized Barium viscosities, including: Varibar? THIN LIQUID (40% w/v, <15 cps) , 1/2 Shortbread Cookie (1 x1 x.25 ) MBSImP ID: [id number] MBSImP Results: Lip closure for intraoral bolus containment could not be assessed due to logistical reasons not related to physiologic impairment. Tongue control during bolus hold could not be assessed due to logistical reasons not related to physiologic impairment. Bolus preparation and mastication demonstrated disorganized chewing/mashing with solid pieces of the bolus unchewed. Bolus transport/lingual motion was with slowed tongue motion. Oral residue was a collection on oral structures. Initiation of the pharyngeal swallow occurred when the bolus head was in the pyriform sinuses. Soft palate elevation resulted in no bolus between the soft palate and the pharyngeal wall. Laryngeal elevation was decreased, with partial superior movement of the thyroid cartilage/partial approximation of the arytenoids to the epiglottic petiole. Anterior hyoid excursion demonstrated partial anterior movement. Epiglottic movement resulted in partial inversion. Laryngeal vestibular closure was incomplete, with a narrow column of air/contrast noted within the laryngeal vestibule at the height of the swallow. Pharyngeal stripping wave was present, but diminished. Pharyngeal contraction could not be determined due to logistical reasons not related to physiologic impairment. Pharyngoesophageal segment opening demonstrated partial distension/partial duration, with partial obstruction of bolus flow. Tongue base retraction allowed a narrow column of contrast or air between the retracted tongue base and the posterior pharyngeal wall. Pharyngeal residue was a collection of residue within or on pharyngeal structures. Esophageal clearance in the upright position could not be assessed due to logistical reasons not related to physiologic impairment. Oral Impairment Score: 9 (absence of score, component 1component 2) Pharyngeal Impairment Score: 10 (absence of score, component 13) Esophageal Impairment Score: --- (absence of score, component 17) Laryngeal Penetration and Aspiration: Penetration was observed in today's study. Thin Contrast entered the airway, remained above the vocal folds, and was ejected from the airway. ASSESSMENT: The patient's performance in today's study indicated impairment in swallowing as outlined below: Contributing to pharyngeal residue: -Partial laryngeal elevation -Diminished pharyngeal stripping wave Contributing to penetration: -Partial epiglottic inversion -Incomplete laryngeal vestibular closure Clinician Assessment: This exam was conducted by a multidisciplinary team, which included a speech pathologist, radiologist, and radiology supervisor. Pt was standing for lateral view only. Pt trialed the following liquid and solid consistencies: thin liquid barium (5 mL, individual cup sip), pureed solid (applesauce mixed with barium paste), and regular solid (Lisset Doone cookie coated with barium paste). Unable to visualize labial seal with imaging. Clinically, pt did not appear to have any anterior loss of bolus. Posterior lingual motion was delayed and slow. Mastication was mildly slowed and disorganized. There was trace residue coating on the tongue with trials of liquids and semi-solid, increased to a moderate degree with regular texture solid. Pt was able to reduce oral residual with dry swallow or liquid wash. Pharyngeal swallow trigger was delayed, initiated as the bolus head reached the pyrifoms. There was no nasopharyngeal reflux. Incomplete laryngeal elevation. Incomplete epiglottic inversion and incomplete laryngeal vestibular closure with resultant flash penetration on thin liquids. Thin liquid entered the airway above the vocal folds and immediately and spontaneously ejected from the airway during the swallow. No evidence of aspiration with intake of liquids and solids. There was moderate pharyngeal retention with regular texture solid. 40-50% of bolus collected on the tongue base, in the valleculae and pyriforms, and on the posterior pharyngeal wall. Partial distention at PES. At this point, pt indicated that she was experiencing globus pharyngeus and pointed to her throat when localizing the sensation. Pt was cued for a dry swallow, which reduced some residuals. Sips of liquid effectively cleared most residuals in the pharynx. Liquid Intake Recommendation: Thin Liquid Intake Strategies: Small Sips No Straws Dietary Recommendations: Regular Medication Administration: Whole with Puree Please contact the pharmacy regarding appropriate crushable or liquid drug formulations that are available whenever modified delivery is recommended. Compensatory Strategies Recommended: Sitting Upright (90 deg) Double Swallow No Straw Small Bites and Sips Alternate Liquids/Solids Rate of Ingestion Change Avoid Specific Foods Supervision during eating and or drinking: None Needed Recommendation for Speech Therapy: NA:Typical Evaluation Text Comment: PLAN: Intake Recommendations: Route: PO Diet Grade: Regular Liquid Consistencies: Thin Post-Study Functional Oral Intake Scale (FOIS): 6- Total oral intake with no special preparation, but must avoid specific foods or liquid items This exam revealed flash penetration with thin liquid. No evidence of aspiration on intake of liquids and solids. There was moderate pharyngeal retention causing pt to experience globus pharyngeus. Pt was able to clear most residuals with a liquid wash. Pt is recommended the following strategies to minimize the risk of aspiration and to promote oral and pharyngeal clearance: -Take small bites of food -Moisten food with sauces/gravies as needed -Chew food well -Clear oral cavity before taking more bites -Follow each bite with dry swallow and sip of liquid to promote pharyngeal clearance -Maintain upright 90 degree position while eating and drinking and for at least 30 minutes afterwards -Liquid by spoon or cup -Avoid the use of straws -Take small, individual sips of liquid -Avoid chain sipping -Avoid tough to chew solids; dry or overly sticky foods; and mixed textures These strategies were discussed with the pt after the exam. Pt verbalized understanding of recommended strategies. At this point, further ST intervention is not warranted. Recommend pt to continue monitoring her dysphagia. If there are any changes or worsening of symptoms, consult with MD, at which point a re-evaluation may be indicated. Therapy Recommendations: Therapy will be discontinued The following compensatory strategies and/or therapeutic exercises will be part of the upcoming therapy/management plan: Liquid Wash Additional Swallow(s) per Bolus Clinician - Supplemental, Miscellaneous Communication: It is important to note MBSS objective studies are snapshots in time and Patient function might vary with factors such as time of day or concomitant medical conditions. For this reason, the final treatment plan for this patient should rest with their medical care team. Additional recommendations should be considered with the totality of the Patient in mind. Thank for the opportunity to participate in the care of this patient. If you have any questions about the content of this report, please contact the [facility] at [facility]. Education: Education regarding findings from today's study and plans for therapy were provided to Patient only through Verbal Instruction. Understanding was expressed by the Patient only. [employer] Clinician/Clinical Fellow: No Supervisory Statement: N/A Speech Language Pathologist: Tereza Mendoza M.A., [facility]-QUILTING SUPERVISOR
== END 2023-03-08 15:03 | disposition home or self-care (01) ==
LOC: HO.XRAY 15:02
PROVIDERS: PCP General Practice; Visit Provider Internal Medicine
DX: R13.10 Dysphagia, unspecified (principal)
CPT/HCPCS: 74230; 92611

== ENCOUNTER → 2023-03-08 15:05 | Outpatient (BNV) | payer OTHER, SELFPAY | PROVIDERS: PCP General Practice; Visit Provider Radiology Diagnostic Radiology | DX: R13.10 Dysphagia, unspecified (principal) | CPT/HCPCS: 74230 ==

== ENCOUNTER 2023-03-15 12:10 | Outpatient (REF) | payer OTHER, SELFPAY ==
[2023-03-15 13:46] LABS: Creatinine Urine 108.28 mg/dL; Microalbum/Creatinine Ratio Ur 32.3 ug/mg cr (<30)
[2023-03-15 14:05] LABS: Anion Gap 18 (12-20); Blood Urea Nitrogen 13 mg/dL (9-16); Calcium 9.2 mg/dL (8.4-10.2); Carbon Dioxide 23 mmol/L (22-29); Chloride 103 mmol/L (96-108); Cholesterol 128 mg/dL (<200); Estimated Glomerular Filt Rate > 60; Glucose Random 118 mg/dL (60-115); HDL Cholesterol 47 mg/dL (>40); LDL Cholesterol Calculated 60 mg/dL (<100); Magnesium 0.9 mg/dL (1.6-2.6); Potassium 4.3 mmol/L (3.3-5.1); Sodium 140 mmol/L (135-145); Triglycerides 105 mg/dL (<150)
== END 2023-03-15 12:11 | disposition home or self-care (01) ==
LOC: HO.HHCL 12:10
PROVIDERS: Visit Provider General Practice
DX: E11.40 Type 2 diabetes mellitus with diabetic neuropathy, unspecified (principal); E83.42 Hypomagnesemia; Z79.4 Long term (current) use of insulin
CPT/HCPCS: 36415; 80048; 80061; 82043; 82570; 83735

== ENCOUNTER 2023-06-04 09:58 | Day surgery (SDC) | payer OTHER, SELFPAY ==
--- NOTE | 2023-06-04 10:46 | HO.ANESPROP2 ---
HPI - Anesthesia Eval Consult details Narrative: for endo PMFSH Active Problems Active Problems: All Active Problems (Updated 12/09/22 @ 12:02 by Karla Andre MD) Abnormal blood electrolyte level (Acute) Depression (Acute) Vitamin D deficiency (Acute) Cognitive impairment (Acute) Dysphagia (Acute) Weight loss, non-intentional (Acute) Anemia (Acute) Celiac artery stenosis (Acute) Migraine headache (Acute) Fracture of proximal end of both humeri with routine healing (Acute) Diarrhea (Acute) Nausea and vomiting (Acute) Post-cholecystectomy syndrome (Acute) Upper abdominal pain (Acute) Elevated lipase (Acute) Constipation (Acute) Chronic constipation (Acute) Pancreatic insufficiency (Acute) GERD (gastroesophageal reflux disease) (Acute) Past Medical History Medical History Anemia Diabetes GERD (gastroesophageal reflux disease) History of heart attack Neuropathy Pancreatic insufficiency Rheumatic arteritis Family History Family History Father No problems noted. Mother No problems noted. Brother No problems noted. Sister Breast cancer Lymphoma Sister No problems noted. Sister No problems noted. Sister No problems noted. Family history of problems with anesthesia: No Surgical History Surgical History H/O colonoscopy with polypectomy History of bilateral carpal tunnel release History of cholecystectomy History of esophagogastroduodenoscopy (EGD) History of open heart surgery Hx of cardiac catheterization Hx of colonoscopy Hx of heart artery stent Social History Social History Household Members: None Are you a primary director day care center to a significant other at home: No Do you presently have visiting nurse or other home services: No Alcohol intake: never Patient Tobacco Use Status: Never used Tobacco Advance Directives: No Advance Directives Information Provided: Yes Current occupational status: unemployed and disabled Meds Allergies Allergy/AdvReac Type Severity Reaction Status Date / Time cortisone [CORTISONE] Allergy Intermediate RASH Verified 12/09/22 11:35 hydrocortisone Allergy Intermediate Rash Verified 12/09/22 11:35 morphine [Morphine] Allergy Intermediate RASH, Verified 12/09/22 11:35 ITCHING oxycodone [From Percocet] Allergy Intermediate Nausea and Verified 12/09/22 11:35 Vomiting Penicillins Allergy Intermediate ITCHING Verified 12/09/22 11:35 sulfamethoxazole Allergy Intermediate Rash Verified 12/09/22 11:35 [From Bactrim] trimethoprim [From Bactrim] Allergy Intermediate Rash Verified 12/09/22 11:35 acetaminophen [From Percocet] Allergy Mild Unknown Verified 12/09/22 11:35 azithromycin Allergy Mild Unknown Verified 12/09/22 11:35 doxycycline Allergy Mild Unknown Verified 12/09/22 11:35 tramadol Allergy Mild Unknown Verified 12/09/22 11:35 tylenol codeine Allergy Mild Unknown Uncoded 12/09/22 11:35 Home Medications Medication Instructions Recorded Confirmed Last Taken Type atorvastatin 80 mg tablet 80 mg PO DAILY 02/12/20 10/08/22 Unknown History metformin 500 mg tablet 500 mg PO DAILY 02/12/20 10/08/22 Unknown History aspirin 81 mg tablet,delayed 81 mg PO DAILY 07/10/20 10/08/22 Unknown History release (Adult Low Dose Aspirin) trazodone 100 mg tablet 100 mg PO BEDTIME 07/19/20 10/08/22 Unknown History metoprolol tartrate 25 mg tablet 1 tab PO BID 03/16/21 10/08/22 Unknown History duloxetine 20 mg capsule,delayed 20 mg PO DAILY depression 09/26/21 10/08/22 Unknown History release clopidogrel 75 mg tablet 75 mg PO DAILY 11/03/22 Unknown History sertraline 50 mg tablet 50 mg PO DAILY 12/09/22 Unknown History Exam Airway Mallampati Class: II TM Dist: >3cm Neck ROM: Limited Heart: rrr Lungs: cta Assessment and Plan Assessment Anesthesia Assessment: Anesthesia Plan Discussed and Chart Reviewed Final Anesthetic Review Family History of Problems with Anesthesia: No NPO: Yes ASA Class: III Final Preanesthetic Review: No Changes in Pt Med Stat, Meds/Allgs Chart Reviewed, Consent Obtained/Reviewed and Anes Risks/Benef Reviewed Patient Risk: Intermediate Procedure Risk: Low Anesthetic Plan Anesthetic Plan: MAC: Disposition: Standard PACU
--- NOTE | 2023-06-04 10:50 | MHC.SHP ---
Pre-Procedural Eval Section A Date of Service: 06/04/23 The patient is an INPATIENT: No The History & Physical has been completed within 30 days and I have reviewed it.: No Section B Chief Complaint: poor appetite, wt loss Relevant Family History (Specify if Yes): No Relevant Social History: None Present Medications: see Short Stay Collaborative assessment Medical History: Significant History (Anemia Diabetes GERD (gastroesophageal reflux disease) History of heart attack Neuropathy Pancreatic insufficiency Rheumatic arteritis) History of Previous Operations: Relevant previous surgery/procedure and date(s) (H/O colonoscopy with polypectomy History of bilateral carpal tunnel release History of cholecystectomy History of esophagogastroduodenoscopy (EGD) History of open heart surgery Hx of cardiac catheterization Hx of colonoscopy Hx of heart artery stent) Allergies: Allergies Allergy/AdvReac Type Severity Reaction Status Date / Time cortisone [CORTISONE] Allergy Intermediate RASH Verified 12/09/22 11:35 hydrocortisone Allergy Intermediate Rash Verified 12/09/22 11:35 morphine [Morphine] Allergy Intermediate RASH, Verified 12/09/22 11:35 ITCHING oxycodone [From Percocet] Allergy Intermediate Nausea and Verified 12/09/22 11:35 Vomiting Penicillins Allergy Intermediate ITCHING Verified 12/09/22 11:35 sulfamethoxazole Allergy Intermediate Rash Verified 12/09/22 11:35 [From Bactrim] trimethoprim [From Bactrim] Allergy Intermediate Rash Verified 12/09/22 11:35 acetaminophen [From Percocet] Allergy Mild Unknown Verified 12/09/22 11:35 azithromycin Allergy Mild Unknown Verified 12/09/22 11:35 doxycycline Allergy Mild Unknown Verified 12/09/22 11:35 tramadol Allergy Mild Unknown Verified 12/09/22 11:35 tylenol codeine Allergy Mild Unknown Uncoded 12/09/22 11:35 Review of Systems Sugical H&P ROS: Negative: Constitution, Cardiovascular, Respiratory and Gastrointestinal Exam Surgical H&P Exam: Normal: Heart, Normal: Lungs, Normal: Extremities and Normal: Abdomen Plan Diagnosis/Plan: Change (proceed with EGD) I have reviewed the history and physical and performed a pertinent physical examination on my patient. No changes have occurred unless specified. Time Spent With Patient Time: Total time managing care of this patient today ____ minutes.
[2023-06-04 11:01] LABS: Glucose, Whole Blood 123 mg/dL (60-115)
[2023-06-04 11:06] VITALS: BMI 21.6
[2023-06-04] MEDS: Lactated Ringers 1,000 ML 100 ML IVCONT (11:15)
--- NOTE | 2023-06-04 11:36 | W.PM.OPN ---
Operative Note Operative Note Date of Service: 06/04/23 Narrative: FLEXIBLE TRANSORAL UPPER GASTROINTESTINAL ENDOSCOPY WITH BIOPSIES Pre-op diagnosis: Decreased appetite, weight loss Post-op diagnosis: Gastritis with gastric antral erosions Endoscopist:? Van Guzman MD Anesthesia:?MAC Consent: Indications for the procedure and potential complications of bleeding, perforation, reaction to medications and missed diagnosis were discussed with the patient and informed consent was obtained. Instrument: Olympus GIF H 190 mid size upper endoscope Monitoring: Vital signs and clinical assessment, continuous EKG monitoring, Pulse oximetry, Carbon Dioxide monitoring and blood pressure monitoring were done throughout the procedure. Procedure: The patient was placed in the left lateral decubitis position and pre-procedure medications were administered and a bite block was placed. The endoscope was inserted into the mouth and advanced under direct vision to the third part of duodenum. A careful inspection was made as the upper endoscope was withdrawn including a retroflexed examination of the proximal stomach; Findings and interventions are described below. Findings: Larynx: Normal Esophagus: GE junction at 36 cms. No esophagitis or Vidales's. Stomach: Mild gastric antral erythema with a few 4-5 mm chronic appearing erosions with small amounts of heme. Biopsies were obtained from the antrum and body of the stomach. Grade 2 flap valve on retroflexed examination of the cardia. Duodenum: Normal bulb and descending duodenum Intervention: Biopsies as noted above Impression and Post Procedure Diagnosis: Endoscopy Findings: STOMACH: Mild gastric antral erythema with a few 4-5 mm chronic appearing erosions (likely due to aspirin) with small amounts of heme. Biopsies were obtained from the antrum and body of the stomach. Plan: Await pathology results Patient has an appointment on 06/17/23 in the GI Clinic with Van Guzman M.D. Above findings were reviewed with the patient and Gastritis handout was given in the discharge area BIOPSIES SHOWED: A. Stomach, antrum, biopsy: Antral-type mucosa with mild chronic inactive inflammation; no Helicobacter organisms seen. B. Stomach, body, biopsy: Oxyntic mucosa with mild chronic inactive inflammation; no Helicobacter organisms seen.
[2023-06-04 11:40] VITALS: BP 113/60; PULSE 59; RESP 16; TEMP 36.1; O2SAT 100
[2023-06-04 11:55] VITALS: BP 126/60; PULSE 72; RESP 16; TEMP 36.1; O2SAT 99
== END 2023-06-04 12:30 | disposition home or self-care (01) ==
PROVIDERS: PCP General Practice; Visit Provider Internal Medicine Gastroenterology
PROC: 0DJ08ZZ Inspection of Upper Intestinal Tract, Via Natural or Artificial Opening Endoscopic (ICD-10-PCS; CPT 43235; principal; 2023-06-04 11:10)
DX: K29.00 Acute gastritis without bleeding (principal); R63.4 Abnormal weight loss; Z68.20 Body mass index [BMI] 20.0-20.9, adult; K21.9 Gastro-esophageal reflux disease without esophagitis; E11.9 Type 2 diabetes mellitus without complications; I10 Essential (primary) hypertension; D64.9 Anemia, unspecified; E55.9 Vitamin D deficiency, unspecified; R41.89 Other symptoms and signs involving cognitive functions and awareness; Z79.84 Long term (current) use of oral hypoglycemic drugs; Z79.82 Long term (current) use of aspirin; Z79.02 Long term (current) use of antithrombotics/antiplatelets
CPT/HCPCS: 43239; 82947; 88305; 88342; J2704

== ENCOUNTER → 2023-06-04 09:58 | Outpatient (BNV) | payer OTHER, SELFPAY | PROVIDERS: PCP General Practice; Visit Provider Internal Medicine Gastroenterology | DX: R63.0 Anorexia (principal); R63.4 Abnormal weight loss; K29.70 Gastritis, unspecified, without bleeding; K25.9 Gastric ulcer, unspecified as acute or chronic, without hemorrhage or perforation | CPT/HCPCS: 43239 ==

== ENCOUNTER 2023-06-11 08:47 | Outpatient (REF) | payer OTHER, SELFPAY ==
[2023-06-11 09:06] LABS: MANUAL DIFF FLAG NO
[2023-06-11 09:19] LABS: Basophils Absolute Auto 0.1 X10*3/uL (0.0-0.2); Basophils Percent Auto 1.6 % (0-2); Eosinophils Absolute Auto 0.4 X10*3/uL (0.0-0.4); Hematocrit 28.1 % (37.0-47.0); Hemoglobin 8.6 g/dl (12.0-16.0); Imm Gran Abs Auto 0.02 X10*3/uL (0.00-0.03); Imm Gran Pct Auto 0.3 % (0.0-0.4); Lymphocytes Absolute Auto 2.3 X10*3/uL (1.2-4.9); Lymphocytes Percent Auto 32.5 % (20-40); Mean Corpuscular HGB Conc 30.6 g/dl (31.0-35.0); Mean Corpuscular Volume 75.1 fL (80.0-98.0); Mean Platelet Volume 10.7 fL (9.4-12.3); Monocytes Absolute Auto 0.7 X10*3/uL (0.1-1.2); Monocytes Percent Auto 10.2 % (2-11); Neutrophils Absolute Auto 3.6 x10*3/uL (2.0-8.3); Neutrophils Percent Auto 50.4 % (45-73); Platelet Count 330 X10*3/uL (160-400); Red Blood Count 3.74 X10*6/uL (4.20-5.50); Red Cell Distribution Width 18.2 % (11.0-16.0)
[2023-06-11 10:05] LABS: Erythrocyte Sedimentation Rate 12 MM/HR (0-20)
[2023-06-11 10:07] LABS: Anion Gap 15 (12-20); Blood Urea Nitrogen 13 mg/dL (9-16); Calcium 9.6 mg/dL (8.4-10.2); Carbon Dioxide 25 mmol/L (22-29); Chloride 102 mmol/L (96-108); Estimated Glomerular Filt Rate > 60; Glucose Random 96 mg/dL (60-115); Potassium 3.7 mmol/L (3.3-5.1); Sodium 138 mmol/L (135-145)
[2023-06-11 10:09] LABS: B Type Natriuretic Peptide 501 pg/mL (<100)
== END 2023-06-11 08:48 | disposition home or self-care (01) ==
LOC: HO.LAB 08:47
PROVIDERS: Absent Provider Internal Medicine Cardiovascular Disease; PCP General Practice; Visit Provider Psychiatry & Neurology Neurology
DX: G43.909 Migraine, unspecified, not intractable, without status migrainosus (principal); I83.813 Varicose veins of bilateral lower extremities with pain; I42.9 Cardiomyopathy, unspecified
CPT/HCPCS: 36415; 80048; 83880; 85025; 85652

== ENCOUNTER 2023-06-17 09:38 | Outpatient (REF) | payer OTHER, SELFPAY ==
[2023-06-17 11:56] LABS: Hematocrit 26.7 % (37.0-47.0); Hemoglobin 8.3 g/dl (12.0-16.0); Mean Corpuscular HGB Conc 31.1 g/dl (31.0-35.0); Mean Corpuscular Hemoglobin 23.3 pg (27.0-33.0); Mean Platelet Volume 11.3 fL (9.4-12.3); Platelet Count 286 X10*3/uL (160-400); Red Blood Count 3.56 X10*6/uL (4.20-5.50); Red Cell Distribution Width 18.7 % (11.0-16.0)
[2023-06-17 12:44] LABS: Alanine Aminotransferase 18 U/L (0-31); Albumin Level 3.9 g/dL (3.5-5.0); Alkaline Phosphatase 65 U/L (39-117); Aspartate Amino Transferase 26 U/L (5-31); Bilirubin Direct < 0.2 mg/dL (0.0-0.5); Bilirubin Total 0.2 mg/dL (0.0-1.0); Magnesium 1.5 mg/dL (1.6-2.6); Total Protein 6.8 g/dL (6.5-8.0)
== END 2023-06-17 09:39 | disposition home or self-care (01) ==
LOC: HO.LAB 09:38
PROVIDERS: PCP General Practice; Visit Provider Internal Medicine Gastroenterology
DX: D64.9 Anemia, unspecified (principal); R79.89 Other specified abnormal findings of blood chemistry; R79.0 Abnormal level of blood mineral; Z76.0 Encounter for issue of repeat prescription; R13.10 Dysphagia, unspecified; R10.10 Upper abdominal pain, unspecified; K21.9 Gastro-esophageal reflux disease without esophagitis; K59.09 Other constipation; K86.89 Other specified diseases of pancreas; R74.8 Abnormal levels of other serum enzymes; E55.9 Vitamin D deficiency, unspecified
CPT/HCPCS: 36415; 80076; 83735; 85027

== ENCOUNTER 2023-06-17 09:38 | Outpatient (AMB) | payer OTHER, SELFPAY ==
--- NOTE | 2023-06-17 09:44 | MHC.OFFVIS ---
Vital Signs 06/17/23 09:50 Height 5 ft 2 in Weight 123 lb BMI 22.5 BP 140/67 H Blood Pressure Location Lt brachial Position Sitting Pulse 76 Intake Visit Reasons: S/p egd Intake Note: Patient follow up EGD results. Patient cc: N/V on and off, abdominal pain, acid reflex with burning sensation, between diarrhea and constipation, and some dysphagia also she needed a refill for Omeprazole. Panel Monitor Required: No Accompanied by: Family/Other Allergies cortisone [CORTISONE] Allergy (Intermediate, Verified 02/04/24 09:56) RASH hydrocortisone Allergy (Intermediate, Verified 02/04/24 09:56) Rash morphine [Morphine] Allergy (Intermediate, Verified 02/04/24 09:56) RASH, ITCHING oxycodone [From Percocet] Allergy (Intermediate, Verified 02/04/24 09:56) Nausea and Vomiting Penicillins Allergy (Intermediate, Verified 02/04/24 09:56) ITCHING sulfamethoxazole [From Bactrim] Allergy (Intermediate, Verified 02/04/24 09:56) Rash trimethoprim [From Bactrim] Allergy (Intermediate, Verified 02/04/24 09:56) Rash acetaminophen [From Percocet] Allergy (Mild, Verified 02/04/24 09:56) Unknown azithromycin Allergy (Mild, Verified 02/04/24 09:56) Unknown doxycycline Allergy (Mild, Verified 02/04/24 09:56) Unknown tramadol Allergy (Mild, Verified 02/04/24 09:56) Unknown tylenol codeine Allergy (Mild, Uncoded 10/21/23 23:32) Unknown Medication List - Last Reconciled 06/17/23 by Van Guzman MD amitriptyline 50 mg PO BEDTIME aspirin (Adult Low Dose Aspirin) 81 mg PO DAILY atorvastatin 80 mg PO DAILY cholecalciferol (vitamin D3) 10,000 units PO 2XW 3 months clopidogrel 75 mg PO DAILY docusate sodium 100 mg PO DAILY 90 days duloxetine 20 mg PO DAILY metformin 500 mg PO DAILY metoprolol tartrate 1 tab PO BID mirtazapine 45 mg PO BEDTIME omeprazole 40 mg PO DAILY 90 days sennosides (senna) 17.2 mg (2 x 8.6 mg) PO BEDTIME 90 days sertraline 50 mg PO DAILY trazodone 100 mg PO BEDTIME HPI HPI S/p egd: Details: FU GI clinic visit for this 67-year-old Maltese speaking female with abdominal pain. Pt is followed in GI for abdominal pain and bloating with intermittent nausea, dysphagia and unintentional weight loss. Cardiac catheterization on 12/17/21 at [facility] which showed blockages per pt. Pt has been followed by Pat Degroot since 2015 and Joanne Busch NP since 10/2018 for abdominal pain, constipation followed by diarrhea and elevated lipase levels (upto 229) 03/2015 Weighed 175 lbs with BMI of 31 10/2018 patient weighed 155 lb with BMI of 27.45 02/2019? weighed 158 lbs with BMI of 27.99 Her wt has been fluctuating between 135 and 124 lbs over the past year. IMAGING STUDIES:?12/22/[address] SCAN SHOWED: Atherosclerotic disease. No aneurysm. Calcified plaque and moderate stenosis at the origin of the celiac axis. The SMA and CORBIN are patent. Mild left renal artery stenosis. ? ?08/07/20 a gastric emptying study was normal: 1 hour 73% (normal 37%-90%) 2 hours 33% (normal 30%-60%) 3 hours 6% 4 hours 2% (normal 0%-10%) 08/05/20 ABD MRI SHOWED: GASTROINTESTINAL TRACT: There is stool throughout the colon suggestive of constipation. No bowel obstruction.? No ascites or fluid collection. ABDOMINAL WALL: No significant hernia is appreciated. LYMPH NODES: No lymphadenopathy. IMPRESSION: Normal-appearing liver. Stool throughout the colon suggestive of constipation. 04/06/[address] SCAN SHOWED: 1. Mild wall prominence of the urinary bladder without adjacent inflammatory change. Findings may be due to underdistention. Early cystitis could be considered in the appropriate clinical setting. 2. No hydronephrosis or nephrolithiasis. 3. No bowel wall thickening or associated inflammatory change. No small or large bowel obstruction. Unremarkable appendix. 4. No intra-abdominal mass, lymphadenopathy, or ascites. ENDOSCOPIC STUDIES: 06/04/23 EGD SHOWED: STOMACH: Mild gastric antral erythema with a few 4-5 mm chronic appearing erosions (likely due to aspirin) with small amounts of heme. Biopsies were obtained from the antrum and body of the stomach. Plan: Above findings were reviewed with the patient and Gastritis handout was given in the discharge area BIOPSIES SHOWED: A. Stomach, antrum, biopsy: Antral-type mucosa with mild chronic inactive inflammation; no Helicobacter organisms seen. B. Stomach, body, biopsy: Oxyntic mucosa with mild chronic inactive inflammation; no Helicobacter organisms seen 10/11/20 COLONOSCOPY SHOWED: No polyps were detected. Patchy erythema in the right colon random biopsies were obtained Moderate diverticulosis seen in the sigmoid colon Moderate hemorrhoids on retroflexed exam. Plan:? Patient has an appointment on 12/02/20 in the GI Clinic with Van Guzman M.D. Repeat Colonoscopy interval based on path results - in 10 years if biopsies are normal BIOPSIES SHOWED:? Colon, right, biopsy:? Colonic mucosa within normal limits. COMMENT: Diagnostic features of microscopic colitis are not seen. 08/30/20 EGD showed: STOMACH:? Gastritis DUODENUM:? Benign-appearing nodule in the descending duodenum. Plan:? Patient has an appointment on 09/19/20 in the GI Clinic with Van Guzman M.D.-. Above findings were reviewed with the patient and GERD and [Gastritis] handouts were given in the discharge area A.? Small bowel, biopsy:? Duodenal mucosa within normal limits. B.? Duodenum, nodule, biopsy:? Clinically nodular duodenal mucosa within normal limits. C.? Stomach, antrum, biopsy:? Antral-type mucosa with mild chronic inactive inflammation; no Helicobacter organisms seen. 04/2016 colonoscopy was performed by Dr. Curry and was negative with an excellent prep TODAY'S VISIT: Patient cc: N/V on and off, abdominal pain, acid reflex with burning sensation, between diarrhea and constipation, and some dysphagia also she needed a refill for Omeprazole. Pt is accompanied by her DILCeleste who interpreted for the patient. EGD results were reviewed. Pt has gained 22 lbs over the past 7 months BNP was elevated so some of the wt gain can be associated with fluid retention - scheduled to see the Reed Repairer on 07/01/23. Saw Neurology 2 weeks ago and prescribed Amitriptyline and scheduled for an MRI of the head next week. PAST VISITS: Continues to have nausea, vomiting, abdominal pain and diarrhea (had constipation in the past) Wt loss of 9 lbs over the past 6 weeks Had six BMs on Wednesday and Wednesday. Constantly throwing up. On some days she can eat small amounts of food Other days she can eat small amounts of food. Had a lot of vomiting on 10/05/22. Had Cardiac bypass surgery on 07/20/22 at [facility] Discharged to Rehab and has been home for a week. Has postoperative anemia which is improving. Denies change in abd pain after the surgery. Notes constipation and had three episodes of diarrhea last week. Has a BM every 5 days and needs to renew her prescription for Елена and Senna. Taking MOM and Trulance. She feels food remains in her stomach even after she has a BM or after vomiting Notes pain when she takes medication Has been vomiting recently Has a BM 3 to 4 times a day when she takes her medication. Takes Trulance every other day - has diarrhea if she takes it every day. Notes left sided abdominal pain - sometimes constant and sometimes it comes and goes. Abd pain can increase to 9/10 intensity Sometimes has pain when she eats. Has constipation and last BM was on 03/16/22. Unable to take Linzess since she notes nausea and abd pain after taking the Linzess Denies fever, chills or sweating. She has noted increased acid and has been throwing up. Her throat swells up and butler. Notes a new pain in the LUQ which feels like a punch Every time she eats, she feels she is not digesting her food and she feels it in her stomach. She has been taking Tylenol and excedrin Prescribed medications for Migraine and not taking it any more since she had a reaction to the medcations (shaking and tingling of both hands) Had abdominal pain with vomiting 2 weeks and unable to eat. Pain lasted 2 days and was unable to eat for 2 days Called her Physician and had IV fluids in her house. Continues to have some early satiety. Medication is helping with constipation (pt has son who she prefers to be the aircraft loadmaster superintendent. ([employer]bel Having Migraine HAs - 1-2 times a week for the past year. Takes tylenol and requesting other medication - advised to contact her PCP's office. I am having some pain in the stomach. When I place food in the mouth, I get nausea and am unable to continue eating Also complains of continued bloating and gas. Has pain whenever she presses on her stomach. Has a BM daily with intermittent straining. No BM for 4-5 days. Colonoscopy results reviewed. Lost another 4 lbs over the past 3 months (135 to 131 lbs). Linzess is helping with the constipation - has a BM every 3 days. Has intermittent bad abdominal pain - 2-3 times a week. Pain is less frequent than in the past. Sometimes has a good appetite and sometimes does not feel hungry. Denies dysphagia. Taking liquids, soups and takes glucerna (vanilla & strawberry) once a week (has nausea when she drinks) Pt developed COVID infection/pneumonia in February - did not need?hospitalization PFSH Medical History Anemia Rheumatic arteritis Neuropathy History of heart attack Diabetes Pancreatic insufficiency GERD (gastroesophageal reflux disease) Surgical History History of open heart surgery Hx of cardiac catheterization Hx of heart artery stent Hx of colonoscopy History of esophagogastroduodenoscopy (EGD) History of bilateral carpal tunnel release History of cholecystectomy H/O colonoscopy with polypectomy Family History Father No problems noted. Mother No problems noted. Brother No problems noted. Sister Breast cancer Lymphoma Sister No problems noted. Sister No problems noted. Sister No problems noted. Social History Household Members: None Are you a primary child care provider to a significant other at home: No Do you presently have visiting nurse or other home services: No Alcohol intake: never Patient Tobacco Use Status: Never used Tobacco Current occupational status: unemployed and disabled Review of Systems Const All systems reviewed & are unremarkable except as noted in HPI and below Physical Exam Vital Signs: Last Vital Signs Pulse 76 06/17/23 09:50 BP 140/67 H 06/17/23 09:50 BMI result Body Mass Index 22.5 Const General: no acute distress Nutritional Appearance: average body habitus Orientation/consciousness: patient oriented x3 Limitations: language barrier HEENT Head: Yes normal to inspection Ears: hearing grossly normal bilaterally Eyes Sclerae: sclerae normal Pupils: Equal, round and reactive pupils present Neck Neck: Yes normal visual inspection Chest Chest palpation & inspection: normal inspection of the chest Resp Effort & Inspection: normal respiratory effort Auscultation: clear to auscultation bilaterally Cardio Palpation: normal PMI Rate: regular rate Rhythm: regular rhythm Heart sounds: S1 normal heart sound present, S2 normal heart sound present and no murmurs GI Palpation (GI): Soft to palpation, nontender and No hepatosplenomegaly present Auscultation: normal bowel sounds Rectal Exam - Female: deferred Skin General skin exam: no rashes or lesions noted Neuro General: patient oriented x3, gait normal and moves all extremities Cranial nerves: Yes Equal, round and reactive pupils present Psych Appearance: grossly normal Mental Status: mental status grossly normal Assessment & Plan Assessment & Plan (1) Vitamin D deficiency: Code(s): E55.9 - Vitamin D deficiency, unspecified Category: Medical (2) Dysphagia: Code(s): R13.10 - Dysphagia, unspecified Category: Medical (3) Weight loss, non-intentional: Code(s): R63.4 - Abnormal weight loss Category: Medical (4) Anemia: Code(s): D64.9 - Anemia, unspecified Category: Medical (5) Elevated lipase: Comment: 07/10/20 18:48 Likely related to IDDM versus Hydrocholorthiazide Lipase 127 H 09/2018 229 (from old system) 10/2018 191 MRI ABD 07/2020 LIVER, GALLBLADDER, AND BILIARY TREE: The liver is normal in size, smooth in contour, and normal in signal. No focal hepatic lesion or biliary ductal dilatation is present. The gallbladder is nondistended identified. PANCREAS: Unremarkable. Code(s): R74.8 - Abnormal levels of other serum enzymes Category: Medical (6) Pancreatic insufficiency: Code(s): K86.89 - Other specified diseases of pancreas Category: Medical (7) GERD (gastroesophageal reflux disease): Code(s): K21.9 - Gastro-esophageal reflux disease without esophagitis Category: Medical (8) Chronic constipation: Code(s): K59.09 - Other constipation Category: Medical (9) Upper abdominal pain: Code(s): R10.10 - Upper abdominal pain, unspecified Category: Medical (10) Elevated LFTs: Code(s): R79.89 - Other specified abnormal findings of blood chemistry Category: Medical Plan 67 year-old Maltese speaking female seen for FU of abdominal pain, bloating with intermittent nausea, dysphagia and unintentional weight loss. Pt was diagnosed with DM at age 14 yrs.? She has chronic mild elevation of lipase for the past few yrs.? Stool studies were negative for WBC, C Diff Toxin and O&P.? A gastric emptying study was normal. Abd MRI showed stool throughout the colon suggestive of constipation without bowel obstruction, ascites or fluid collection. Pt was advised to hold off taking cholestyramine and start taking Linzess once daily (since she is having constipation as noted on her recent MRI scan) . Inflammatory markers, pancreatic elastase and IgG4 levels were normal 10/11/20 colonoscopy showed moderate diverticulosis and no polyps were detected.? Random biopsies obtained from the colon were negative for microscopic colitis. Patient notes improvement in constipation with Linzess - dose of Linzess was increased without significant change in symptoms. Pt continues to have intermittent episodes of upper abdominal pain, nausea and vomiting managed with IV hydration at home. Recent labs show an increase in Lipase suggesting she may be having acute on chronic pancreatitis. Pt was advised to come to [facility] if she had another episode for evaluation with labs and abd CT scan Dose of pancreatic enzymes was increased and pt was advised to hold Hctz (since pancreatitis can be caused by thiazide diuretics and it can worsen dehydration since her PO intake is low). Her wt loss can be related to COVID 19 infection fall of 2018 Weight loss due to acute illness is often multifactorial, and may involve malnutrition, loss of appetite, catabolic state, swallowing dysfunction, and disordered taste and?smell 12/[address] SCAN SHOWED: Calcified plaque and moderate stenosis at the origin of the celiac axis. The SMA and CORBIN are patent. Mild left renal artery stenosis. 03/17/22 Pt had Visceral vessel arteriography at [facility] which was normal. Pt scheduled for MRCP and MRI of abdomen on 11/04/22 and appointment was moved up to 10/13/22. 11/03/22 patient was seen by Dr Andre for a 2nd opinion and started on mirtazapine and has been gaining weight since. 06/17/23 Pt has gained 22 lbs over the past 7 months BNP was elevated so some of the wt gain can be associated with fluid retention - scheduled to see the Reed Repairer on 07/01/23. Saw Neurology 2 weeks ago and prescribed Amitriptyline and scheduled for an MRI of the head next week. FU in 6 weeks Orders: Orders Magnesium 06/17/23 R79.0 - Abnormal level of blood mineral Complete Blood Count no Diff 06/17/23 D64.9 - Anemia, unspecified Liver Panel 06/17/23 R79.89 - Other specified abnormal findings of blood chemistry Medications: Refilled omeprazole 40 mg PO DAILY 90 caps 1RF 90 days K21.9 - Gastro-esophageal reflux disease without esophagitis Coding Level of Care Code Est Pt Level 4 (79854) Diagnoses Vitamin D deficiency E55.9 Dysphagia R13.10 Weight loss, non-intentional R63.4 Anemia D64.9 Elevated lipase R74.8 Pancreatic insufficiency K86.89 GERD (gastroesophageal reflux disease) K21.9 Chronic constipation K59.09 Upper abdominal pain R10.10 Elevated LFTs R79.89 Time Spent (min) 23
[2023-06-17 09:50] VITALS: BP 140/67; PULSE 76; BMI 22.5
== END 2023-06-17 10:39 | disposition home or self-care (01) ==
PROVIDERS: PCP General Practice; Visit Provider Internal Medicine Gastroenterology
DX: E55.9 Vitamin D deficiency, unspecified (principal); R13.10 Dysphagia, unspecified; R63.4 Abnormal weight loss; D64.9 Anemia, unspecified; R74.8 Abnormal levels of other serum enzymes; K86.89 Other specified diseases of pancreas; K21.9 Gastro-esophageal reflux disease without esophagitis; K59.09 Other constipation; R10.10 Upper abdominal pain, unspecified; R79.89 Other specified abnormal findings of blood chemistry
CPT/HCPCS: 99499

== ENCOUNTER 2023-06-21 11:58 | Outpatient (REF) | payer OTHER, SELFPAY | END 2023-06-21 11:59 | disposition home or self-care (01) | LOC: HO.MAMMO 11:58 | PROVIDERS: PCP General Practice; Visit Provider General Practice | DX: Z12.31 Encounter for screening mammogram for malignant neoplasm of breast (principal) | CPT/HCPCS: 77063; 77067 ==

== ENCOUNTER → 2023-06-21 12:15 | Outpatient (BNV) | payer OTHER, SELFPAY | PROVIDERS: PCP General Practice; Visit Provider Radiology Diagnostic Radiology | DX: Z12.31 Encounter for screening mammogram for malignant neoplasm of breast (principal) | CPT/HCPCS: 77063; 77067 ==

== ENCOUNTER 2023-07-21 10:48 | Outpatient (REF) | payer OTHER, SELFPAY ==
[2023-07-21 12:15] LABS: Erythrocyte Sedimentation Rate 10 MM/HR (0-20)
== END 2023-07-21 10:49 | disposition home or self-care (01) ==
LOC: HO.LAB 10:48
PROVIDERS: Absent Provider General Practice; PCP General Practice; Visit Provider Internal Medicine Gastroenterology
DX: R51.9 Headache, unspecified (principal)
CPT/HCPCS: 36415; 85652

== ENCOUNTER 2023-08-13 10:26 | Outpatient (REF) | payer OTHER, SELFPAY ==
[2023-08-13 13:04] LABS: Blood Urea Nitrogen 14 mg/dL (9-16); Estimated Glomerular Filt Rate 56
== END 2023-08-13 10:27 | disposition home or self-care (01) ==
LOC: HO.LAB 10:26
PROVIDERS: PCP General Practice; Visit Provider Radiology Vascular & Interventional Radiology
DX: R79.89 Other specified abnormal findings of blood chemistry (principal); R94.4 Abnormal results of kidney function studies
CPT/HCPCS: 36415; 82565; 84520

== ENCOUNTER 2023-09-03 13:02 | Outpatient (REF) | payer OTHER, SELFPAY ==
--- NOTE | ~2023-09-03 | CT_ITS ---
EXAMINATION: CT HEAD WITHOUT CONTRAST CLINICAL INFORMATION: Migraine. COMPARISON: CT head from 03/16/2021. TECHNIQUE: Contiguous axial imaging was performed from the skull base to vertex without intravenous administration of contrast. This CT examination was performed using dose optimization techniques as appropriate, variously including the following: *Automated exposure control. *Adjustment of mA and/or kV according to patient size (this includes techniques or standardized protocols for targeted exams where dose is matched to indication/reason for exam; i.e. extremities or head). *Use of iterative reconstruction technique. DLP: 718 mGy-cm FINDINGS: There is no evidence of acute intracranial hemorrhage or edematous territorial infarction. Noriega-white matter differentiation is preserved. Scattered and partially confluent hypoattenuation in the periventricular and deep white matter are consistent with moderate microangiopathy. Proportional prominence of the ventricles and sulcal spaces without evidence of obstructive hydrocephalus. No abnormal mass effect or midline shift. No extra-axial fluid collections. Calcifications described disease of the intracranial internal carotid and vertebral arteries. No hyperdense vessel sign. No acute soft tissue or osseous abnormalities. Mild mucosal thickening of the paranasal sinuses. The mastoid air cells and middle ear cavities are clear. CT/CT head/brain wo IV con IMPRESSION: 1. No evidence of acute intracranial hemorrhage or edematous territorial infarction. 2. Moderate underlying microangiopathy and generalized cerebral volume loss.
== END 2023-09-03 13:03 | disposition home or self-care (01) ==
LOC: HO.CT 13:02
PROVIDERS: PCP General Practice; Visit Provider Psychiatry & Neurology Neurology
DX: G43.909 Migraine, unspecified, not intractable, without status migrainosus (principal)
CPT/HCPCS: 70450

== ENCOUNTER 2023-10-15 10:53 | Outpatient (REF) | payer OTHER, SELFPAY ==
[2023-10-15 13:32] LABS: MANUAL DIFF FLAG NO
[2023-10-15 13:51] LABS: Basophils Absolute Auto 0.1 X10*3/uL (0.0-0.2); Basophils Percent Auto 1.4 % (0-2); Eosinophils Absolute Auto 0.2 X10*3/uL (0.0-0.4); Eosinophils Percent Auto 3.1 % (0-4); Hematocrit 31.3 % (37.0-47.0); Hemoglobin 9.4 g/dl (12.0-16.0); Imm Gran Abs Auto 0.03 X10*3/uL (0.00-0.03); Imm Gran Pct Auto 0.4 % (0.0-0.4); Lymphocytes Absolute Auto 1.5 X10*3/uL (1.2-4.9); Lymphocytes Percent Auto 20.3 % (20-40); Mean Corpuscular Hemoglobin 22.4 pg (27.0-33.0); Mean Corpuscular Volume 74.7 fL (80.0-98.0); Mean Platelet Volume 12.1 fL (9.4-12.3); Monocytes Absolute Auto 0.6 X10*3/uL (0.1-1.2); Monocytes Percent Auto 8.5 % (2-11); Neutrophils Absolute Auto 4.8 x10*3/uL (2.0-8.3); Neutrophils Percent Auto 66.3 % (45-73); Platelet Count 321 X10*3/uL (160-400); Red Blood Count 4.19 X10*6/uL (4.20-5.50); Red Cell Distribution Width 21.2 % (11.0-16.0); White Blood Count 7.2 X10*3/uL (4.8-10.8)
[2023-10-15 14:35] LABS: Anion Gap 15 (12-20); Blood Urea Nitrogen 18 mg/dL (9-16); Calcium 10.1 mg/dL (8.4-10.2); Carbon Dioxide 27 mmol/L (22-29); Chloride 99 mmol/L (96-108); Estimated Glomerular Filt Rate 55; Glucose Random 126 mg/dL (60-115); Magnesium 1.5 mg/dL (1.6-2.6); Potassium 4.6 mmol/L (3.3-5.1); Sodium 136 mmol/L (135-145)
[2023-10-15 14:39] LABS: Erythrocyte Sedimentation Rate 10 MM/HR (0-20)
== END 2023-10-15 10:54 | disposition home or self-care (01) ==
LOC: HO.HHCL 10:53
PROVIDERS: Visit Provider General Practice
DX: E83.42 Hypomagnesemia (principal); N18.30 Chronic kidney disease, stage 3 unspecified; D63.1 Anemia in chronic kidney disease; R51.9 Headache, unspecified
CPT/HCPCS: 36415; 80048; 83735; 85025; 85652

== ENCOUNTER 2023-10-21 23:02 | Emergency (ER) | payer OTHER, SELFPAY ==
--- NOTE | ~2023-10-21 | XR_ITS ---
Radiograph bilateral knees CLINICAL HISTORY: Fall. COMPARISON: None. TECHNIQUE: 4 views of each knee. FINDINGS: Right knee: No fracture or subluxation. Surgical clips overlying the posteromedial aspect of the knee. Moderate tricompartmental degenerative changes. No significant joint effusion. Extensive vascular calcifications. Left knee: No fracture or subluxation. Moderate tricompartmental degenerative changes. Small to moderate size joint effusion. Surgical clips overlying the posterior compartment of the knee. Vascular stent projecting over the distal femoral vessels. Severe vascular calcifications. XR/XR knee RT 3V IMPRESSION: 1. No acute fracture or subluxation. 2. Small to moderate size left joint effusion. 3. Moderate bilateral tricompartmental degenerative changes.
--- NOTE | ~2023-10-21 | XR_ITS ---
RADIOGRAPH BILATERAL HIPS CLINICAL HISTORY: Fall. COMPARISON: CT abdomen/pelvis 12/22/2021. TECHNIQUE: 1 view of the pelvis and 2 views of each hip. FINDINGS: No fracture or subluxation. Decreased bone mineralization. Moderate degenerative osteoarthritis of both hips. Symmetric SI joints. Pubic symphysis is and pelvic rim are maintained. Nonspecific metallic density overlies the medial left femoral head. Extensive, severe vascular calcifications. XR/XR hip RT min 2V IMPRESSION: 1. No fracture or subluxation. 2. Indeterminate metallic density overlies the left proximal femur. 3. Moderate degenerative osteoarthritis of both hips. 4. Extensive vascular calcifications.
--- NOTE | ~2023-10-21 | CT_ITS ---
EXAMINATION: CT KNEE WITHOUT CONTRAST, RIGHT CLINICAL INFORMATION: Pain COMPARISON: Radiograph 10/21/2023 TECHNIQUE: Multidetector helical imaging was performed through the right knee. Coronal and sagittal reformatted images were created. This CT examination was performed using dose optimization techniques as appropriate, variously including the following: *Automated exposure control *Adjustment of mA and/or kV according to patient size (this includes techniques or standardized protocols for targeted exams where dose is matched to indication/reason for exam; i.e. extremities or head) *Use of iterative reconstruction technique DLP: 385 mGy-cm FINDINGS: Alignment across the knee is anatomic. Moderate patellofemoral joint space narrowing with small posterior patellar spurs. Mild to moderate narrowing of the lateral and medial compartments. No definite acute fracture is seen. Small joint effusion. Extensive vascular calcifications. CT/CT knee RT wo IV con IMPRESSION: Tricompartmental degenerative changes of the right knee. Small joint effusion without definite fracture.
--- NOTE | ~2023-10-21 | CT_ITS ---
EXAMINATION: CT KNEE WITHOUT CONTRAST, LEFT CLINICAL INFORMATION: Pain COMPARISON: Radiographs 10/21/2023 TECHNIQUE: Multidetector helical imaging was performed through the left knee. Coronal and sagittal reformatted images were created. This CT examination was performed using dose optimization techniques as appropriate, variously including the following: *Automated exposure control *Adjustment of mA and/or kV according to patient size (this includes techniques or standardized protocols for targeted exams where dose is matched to indication/reason for exam; i.e. extremities or head) *Use of iterative reconstruction technique DLP: 385 mGy-cm FINDINGS: There is subtle focal irregularity along the lateral tibial plateau as seen on sagittal image 49, raising concern for an essentially nondisplaced fracture. There is also suggestion of a nondisplaced fibular head fracture such as on coronal image 94. Small to moderate-sized lipohemarthrosis is noted. Alignment across the knee is anatomic with mild tricompartmental joint space narrowing. Trace posterior patellar osteophytes. Additional patellar spurring at the insertion of the quadriceps tendon. Extensive vascular calcification. CT/CT knee LT wo IV con IMPRESSION: Small to moderate-sized lipohemarthrosis. Subtle focal irregularity along the lateral tibial plateau, raising concern for essentially nondisplaced fracture. Suggestion of a nondisplaced fibular head fracture.
--- NOTE | ~2023-10-21 | XR_ITS ---
RADIOGRAPH BILATERAL HIPS CLINICAL HISTORY: Fall. COMPARISON: CT abdomen/pelvis 12/22/2021. TECHNIQUE: 1 view of the pelvis and 2 views of each hip. FINDINGS: No fracture or subluxation. Decreased bone mineralization. Moderate degenerative osteoarthritis of both hips. Symmetric SI joints. Pubic symphysis is and pelvic rim are maintained. Nonspecific metallic density overlies the medial left femoral head. Extensive, severe vascular calcifications. XR/XR hip LT min 2V IMPRESSION: 1. No fracture or subluxation. 2. Indeterminate metallic density overlies the left proximal femur. 3. Moderate degenerative osteoarthritis of both hips. 4. Extensive vascular calcifications.
--- NOTE | ~2023-10-21 | XR_ITS ---
Radiograph bilateral knees CLINICAL HISTORY: Fall. COMPARISON: None. TECHNIQUE: 4 views of each knee. FINDINGS: Right knee: No fracture or subluxation. Surgical clips overlying the posteromedial aspect of the knee. Moderate tricompartmental degenerative changes. No significant joint effusion. Extensive vascular calcifications. Left knee: No fracture or subluxation. Moderate tricompartmental degenerative changes. Small to moderate size joint effusion. Surgical clips overlying the posterior compartment of the knee. Vascular stent projecting over the distal femoral vessels. Severe vascular calcifications. XR/XR knee LT 3V IMPRESSION: 1. No acute fracture or subluxation. 2. Small to moderate size left joint effusion. 3. Moderate bilateral tricompartmental degenerative changes.
[2023-10-21 23:31] VITALS: BP 178/92; BP 184/89; PULSE 84; PULSE 86; RESP 16; TEMP 36.1; O2SAT 99; BMI 27.4
--- NOTE | 2023-10-21 23:35 | ECG_ITS ---
Test Reason : PAIN Blood Pressure : / mmHG Vent. Rate : 083 BPM Atrial Rate : 083 BPM P-R Int : 158 ms QRS Dur : 086 ms QT Int : 360 ms P-R-T Axes : 040 059 037 degrees QTc Int : 423 ms Normal sinus rhythm with sinus arrhythmia Nonspecific ST abnormality Abnormal ECG When compared with ECG of 20-MAY-2021 20:41, No significant change was found Referred By: Selena Galo Electronically Signed By:DONNY ROSARIO MD
--- NOTE | 2023-10-21 23:58 | ED.GENADULT ---
HPI - General Adult General Chief complaint: Extremity Injury, Lower Stated complaint: MECHANICAL FALL @NOON, +THINNERS,- HEADSTRKIE Time Seen by Provider: 10/21/23 23:19 History of Present Illness HPI narrative: Patient is 68 years old presents today status post mechanical falls. Patient has a history of coronary artery disease status post bypass history being on Plavix. Denies any chest pain any shortness of breath. Patient's says from time to time her legs give way and they gave way today. Landed on the left knee complaining of pain to both knees. Denies any head injury. Denies any nausea vomiting. Denies any neck pain. Related Data Home Medications ?Medication ?Instructions ?Recorded ?Confirmed atorvastatin 80 mg tablet 80 mg PO DAILY 02/12/20 06/17/23 metformin 500 mg tablet 500 mg PO DAILY 02/12/20 06/17/23 aspirin 81 mg tablet,delayed 81 mg PO DAILY 07/10/20 06/17/23 release (Adult Low Dose Aspirin) trazodone 100 mg tablet 100 mg PO BEDTIME 07/19/20 06/17/23 metoprolol tartrate 25 mg tablet 1 tab PO BID 03/16/21 06/17/23 duloxetine 20 mg capsule,delayed 20 mg PO DAILY depression 09/26/21 06/17/23 release clopidogrel 75 mg tablet 75 mg PO DAILY 11/03/22 06/17/23 sertraline 50 mg tablet 50 mg PO DAILY 12/09/22 06/17/23 amitriptyline 50 mg tablet 50 mg PO BEDTIME 06/17/23 06/17/23 mirtazapine 45 mg tablet 45 mg PO BEDTIME 06/17/23 06/17/23 Previous Rx's ?Medication ?Instructions ?Recorded omeprazole 40 mg capsule,delayed 40 mg PO DAILY 90 days #90 caps 06/17/23 release sennosides 8.6 mg tablet (senna) 17.2 mg (2 x 8.6 mg) PO BEDTIME 08/11/23 for constipation #180 tabs docusate sodium 100 mg capsule 100 mg PO DAILY #90 caps 08/12/23 ferrous gluconate 324 mg (37.5 mg 324 mg PO DAILY 90 days #90 tabs 09/20/23 iron) tablet cholecalciferol (vitamin D3) 250 250 mcg PO 2XW 90 days #26 caps 10/21/23 mcg (10,000 unit) capsule Allergies Allergy/AdvReac Type Severity Reaction Status Date / Time cortisone [CORTISONE] Allergy Intermediate RASH Verified 10/21/23 23:32 hydrocortisone Allergy Intermediate Rash Verified 10/21/23 23:32 morphine [Morphine] Allergy Intermediate RASH, Verified 10/21/23 23:32 ITCHING oxycodone [From Percocet] Allergy Intermediate Nausea and Verified 10/21/23 23:32 Vomiting Penicillins Allergy Intermediate ITCHING Verified 10/21/23 23:32 sulfamethoxazole Allergy Intermediate Rash Verified 10/21/23 23:32 [From Bactrim] trimethoprim [From Bactrim] Allergy Intermediate Rash Verified 10/21/23 23:32 acetaminophen [From Percocet] Allergy Mild Unknown Verified 10/21/23 23:32 azithromycin Allergy Mild Unknown Verified 10/21/23 23:32 doxycycline Allergy Mild Unknown Verified 10/21/23 23:32 tramadol Allergy Mild Unknown Verified 10/21/23 23:32 tylenol codeine Allergy Mild Unknown Uncoded 10/21/23 23:32 Review of Systems Review of Systems: Positive knee pain bilaterally Yes all other systems are reviewed and are negative PMFSH Past Medical History Attestation statement: The following information was validated with the patient. Medical History Anemia Rheumatic arteritis Neuropathy History of heart attack Diabetes Pancreatic insufficiency GERD (gastroesophageal reflux disease) Surgical History History of open heart surgery Hx of cardiac catheterization Hx of heart artery stent Hx of colonoscopy History of esophagogastroduodenoscopy (EGD) History of bilateral carpal tunnel release History of cholecystectomy H/O colonoscopy with polypectomy Family History Family History Father No problems noted. Mother No problems noted. Brother No problems noted. Sister Breast cancer Lymphoma Sister No problems noted. Sister No problems noted. Sister No problems noted. Social History Social History Household Members: None Are you a primary animal care worker to a significant other at home: No Do you presently have visiting nurse or other home services: No Alcohol intake: never Patient Tobacco Use Status: Never used Tobacco Smoked in Last 30 Days: No Use of substances other than those prescribed or required for medical reasons: No Advance Directives: No Advance Directives Information Provided: Yes Do you have a plan to hurt others: No Plan Current occupational status: unemployed and disabled Physical Exam ED Vital Signs: Vital Signs - 24 hr 10/21/23 23:31 10/22/23 01:12 Temperature 96.9 F 98.0 F Pulse Rate 84 84 Respiratory Rate 16 17 Blood Pressure 184/89 H 179/73 H Pulse Oximetry 99 96 Oxygen Delivery Method Room Air Room Air BMI result Body Mass Index 27.4 Appearance: Alert. Oriented X3. No acute distress. Eyes: Pupils equal, round and reactive to light. ENT: Pharynx normal. Neck: Normal inspection. Neck supple. No lymph nodes noted. No crepitus CVS: Normal heart rate and rhythm. Pulses normal. Normal S1 and S2 Respiratory: No respiratory distress. Breath sounds normal. No Wheezing. No rales Abdomen: Soft and nontender. No rigidity. No distention. good BS x4 Skin: Skin warm and dry. Normal skin color. Normal skin turgor. Extremities: No lower extremity edema. Pain on movement of bilateral knees. On the left knee there is no gross tenderness on palpation of the patella. No tenderness on palpation of medial lateral collateral ligament. Sensation grossly intact range of motion was limited secondary to pain. Distal pulses intact. Examination of the right knee showed no patella tenderness. No medial or lateral collateral ligament tenderness. Range of motion also limited secondary to pain. Distally pulses intact sensation intact. Skin intact Neuro: Oriented X 3. No motor deficit. No sensory deficit. Moving all extermities. No slurred speech Medications Administered Discontinued Medications Generic Name Dose Route Start Last Admin Trade Name Freq PRN Reason Stop Dose Admin Hydrocodone Bitart/Acetaminophen 1 tab 10/21/23 23:36 10/22/23 00:08 Hydrocodone Bit/Acetam 5/325 Tablet PO 10/21/23 23:37 1 tab ONCE ONE Administration Ibuprofen 400 mg 10/22/23 02:48 10/22/23 03:23 Ibuprofen 400 Mg Tablet PO 10/22/23 02:49 400 mg ONCE ONE Administration Levofloxacin 500 mg 10/22/23 03:09 10/22/23 03:24 Levofloxacin 500 Mg Tablet PO 10/22/23 03:10 500 mg ONCE ONE Administration Medical Decision Making Medical Decision Making [facility] Narrative: Patient's urine appears infected. Started on a dose of Levaquin. Patient has allergies to Bactrim in the past. Allergies to penicillin in the past as well. X-ray of the knee showed no acute fracture. CT of the knees were done. CT of the left knee consistent with having a possible tibial plateau fracture possible fibular head fracture. Case was consulted by Orthopedics on-call. Suggested knee immobilizer nonweightbearing. Given patient normally walks with a walker, will get patient physical therapy eval. Case management eval in a.m.. In stable condition. Differential Diagnosis Differential Diagnoses: The differential diagnosis associated with the presentation includes Urinary tract infection, knee fracture Admission/Observation Consideration of admission/observation: Escalation of care including admission/observation considered Consult Healthcare Provider Management of the patient was discussed with: Wire Web Worker (Physical therapy and case management) Lab Data [facility] Lab Attestation statement: I reviewed the patient's lab results. 10/22/23 00:18 10/22/23 00:18 Labs: Lab Results 10/22/23 10/22/23 Range/Units 00:18 02:34 WBC 11.1 H (4.8-10.8) X10*3/uL RBC 3.98 L (4.20-5.50) X10*6/uL Hgb 8.8 L (12.0-16.0) g/dl Hct 29.0 L (37.0-47.0) % MCV 72.9 L (80.0-98.0) fL MCH 22.1 L (27.0-33.0) pg MCHC 30.3 L (31.0-35.0) g/dl RDW 20.4 H (11.0-16.0) % Plt Count 274 (160-400) X10*3/uL MPV 11.3 (9.4-12.3) fL Immature Gran % (Auto) 0.4 (0.0-0.4) % Neut % (Auto) 68.9 (45-73) % Lymph % (Auto) 19.2 L (20-40) % Thayer % (Auto) 9.4 (2-11) % Eos % (Auto) 1.3 (0-4) % Baso % (Auto) 0.8 (0-2) % Lymph # (Auto) 2.1 (1.2-4.9) X10*3/uL Thayer # (Auto) 1.0 (0.1-1.2) X10*3/uL Eos # (Auto) 0.1 (0.0-0.4) X10*3/uL Baso # (Auto) 0.1 (0.0-0.2) X10*3/uL Abs Immat Gran (auto) 0.04 H (0.00-0.03) X10*3/uL Absolute Neuts (auto) 7.7 (2.0-8.3) x10*3/uL Absolute Nucleated RBC 0.000 (0.0-0.012) X10*3/uL Nucleated RBC % (auto) 0.0 (0.0-0.2) /100WBC Sodium 136 (135-145) mmol/L Potassium 4.3 (3.3-5.1) mmol/L Chloride 101 (96-108) mmol/L Carbon Dioxide 24 (22-29) mmol/L Anion Gap 15 (12-20) BUN 21 H (9-16) mg/dL Creatinine 1.07 (0.5-1.4) mg/dL Estim Creat Clear Calc 44.1 Estimated GFR 51 Random Glucose 187 H (60-115) mg/dL Calcium 9.7 (8.4-10.2) mg/dL Troponin I High Sens < 2.7 (<3.5-17.0) ng/L Urine Color Yellow Urine Appearance Clear Urine pH 8.5 (5.0-9.0) Ur Specific [place] 1.010 (1.005-1.025) Urine Protein Trace (Neg-Trace) mg/dL Urine Glucose (UA) Negative (Negative) mg/dL Urine Ketones Negative (Negative) mg/dL Urine Blood Negative (Negative) Urine Nitrite Negative (Negative) Ur Leukocyte Esterase Large (3+) H (Negative) Urine RBC 0-2 (0-2) /HPF Urine WBC >50 H (0-5) /HPF Ur Squamous Epith Cells 0-2 (0-2) /HPF Urine Bacteria 2+ (None Seen) Hyaline Casts 0-2 (0-2) /LPF Independent Interpretation I performed an independent interpretation of an: Plain X-Ray (X-ray of the knee was grossly negative) Radiology Impression Discussion of test interpretation with radiology: I have reviewed the radiologist's reading. Discharge Plan Discharge Clinical Impression: Closed fracture of tibial plateau, Closed fracture fibula, head, Urinary tract infection Patient Disposition: Still a Patient Prescriptions: No Action sennosides [senna] 8.6 mg tablet 17.2 mg PO BEDTIME Qty: 180 1RF docusate sodium 100 mg capsule 100 mg PO DAILY Qty: 90 1RF ferrous gluconate 324 mg (37.5 mg iron) tablet 324 mg PO DAILY 90 Days Qty: 90 1RF cholecalciferol (vitamin D3) 250 mcg (10,000 unit) capsule 250 mcg PO 2XW 90 Days Qty: 26 1RF metoprolol tartrate 25 mg tablet 1 tab PO BID atorvastatin 80 mg tablet 80 mg PO DAILY metformin 500 mg tablet 500 mg PO DAILY aspirin [Adult Low Dose Aspirin] 81 mg tablet,delayed release (DR/EC) 81 mg PO DAILY trazodone 100 mg tablet 100 mg PO BEDTIME duloxetine 20 mg capsule,delayed release(DR/EC) 20 mg PO DAILY sertraline 50 mg tablet 50 mg PO DAILY mirtazapine 45 mg tablet 45 mg PO BEDTIME amitriptyline 50 mg tablet 50 mg PO BEDTIME omeprazole 40 mg capsule,delayed release(DR/EC) 40 mg PO DAILY 90 Days Qty: 90 1RF clopidogrel 75 mg tablet 75 mg PO DAILY Print Language: Czech
--- NOTE | 2023-10-22 00:01 | PC.NURSE ---
pt to xray at this time. will resume care of pt when she returns.
[2023-10-22] MEDS: HYDROcodone Bit/Acetam 5/325 TABLET 1 TAB PO ×2 (00:08→12:30)
--- NOTE | 2023-10-22 00:09 | PC.NURSE ---
pt c/o 02/23 pain. medication administered per provider order. effectiveness pending.
[2023-10-22 00:24] LABS: MANUAL DIFF FLAG NO
[2023-10-22 00:29] LABS: Basophils Absolute Auto 0.1 X10*3/uL (0.0-0.2); Basophils Percent Auto 0.8 % (0-2); Eosinophils Absolute Auto 0.1 X10*3/uL (0.0-0.4); Eosinophils Percent Auto 1.3 % (0-4); Hemoglobin 8.8 g/dl (12.0-16.0); Imm Gran Abs Auto 0.04 X10*3/uL (0.00-0.03); Imm Gran Pct Auto 0.4 % (0.0-0.4); Lymphocytes Absolute Auto 2.1 X10*3/uL (1.2-4.9); Lymphocytes Percent Auto 19.2 % (20-40); Mean Corpuscular HGB Conc 30.3 g/dl (31.0-35.0); Mean Corpuscular Hemoglobin 22.1 pg (27.0-33.0); Mean Corpuscular Volume 72.9 fL (80.0-98.0); Mean Platelet Volume 11.3 fL (9.4-12.3); Monocytes Percent Auto 9.4 % (2-11); Neutrophils Absolute Auto 7.7 x10*3/uL (2.0-8.3); Neutrophils Percent Auto 68.9 % (45-73); Platelet Count 274 X10*3/uL (160-400); Red Blood Count 3.98 X10*6/uL (4.20-5.50); Red Cell Distribution Width 20.4 % (11.0-16.0); White Blood Count 11.1 X10*3/uL (4.8-10.8)
[2023-10-22 00:47] LABS: Anion Gap 15 (12-20); Blood Urea Nitrogen 21 mg/dL (9-16); Calcium 9.7 mg/dL (8.4-10.2); Carbon Dioxide 24 mmol/L (22-29); Chloride 101 mmol/L (96-108); Creatinine Clr Calc Pharmacy 44.1; Estimated Glomerular Filt Rate 51; Glucose Random 187 mg/dL (60-115); Potassium 4.3 mmol/L (3.3-5.1); Sodium 136 mmol/L (135-145)
[2023-10-22 00:49] LABS: Troponin-I High Sensitivity < 2.7 ng/L (<3.5-17.0)
[2023-10-22 01:12] VITALS: BP 179/73; PULSE 84; RESP 17; TEMP 36.7; O2SAT 96
--- NOTE | 2023-10-22 02:35 | PC.NURSE ---
pt ambulated to the restroom w/ an unsteady gait. 1:1 assist needed w/ the use of a walker. UA obtained/sent to lab. pt verbalizing 02/23 pain - requesting medication. notified/aware.
[2023-10-22 02:51] LABS: Appearance Urine Clear; Color Urine Yellow; Glucose Urine UA Negative (Negative); Leukocyte Esterase Urine Large (3+) (Negative); Nitrite Urine Negative (Negative); PH 8.5 (5.0-9.0); UMIC TRIGGER UACC YES; Urine Blood Negative (Negative); Urine Ketones Negative (Negative); Urine Protein Trace mg/dL (Neg-Trace)
[2023-10-22 03:02] LABS: Bacteria Urine 2+ (None Seen); Hyaline Casts Urine 0-2 /LPF (0-2); RBC Urine 0-2 /HPF (0-2); Squamous Epithelial Cell Urine 0-2 /HPF (0-2); UACC Culture Trigger YES; WBC Urine >50 /HPF (0-5)
[2023-10-22] MEDS: Ibuprofen 400 MG TABLET PO (03:23)
[2023-10-22] MEDS: levoFLOXacin 500 MG TABLET PO (03:24)
--- NOTE | 2023-10-22 03:25 | PC.NURSE ---
pt requesting motrin despite pain being a 10/10. medication administered per provider order. effectiveness pending.
[2023-10-22 06:31] VITALS: BP 161/69; PULSE 80; RESP 17; TEMP 36.1; O2SAT 94
--- NOTE | 2023-10-22 07:14 | PC.NURSE ---
pt at bedside seeing patient, stating pt should possibly go to rehab and pt stating she does not want to go to a rehab facility
[2023-10-22 07:36] VITALS: BP 161/69; PULSE 80; O2SAT 94
--- NOTE | 2023-10-22 12:36 | PC.NURSE ---
pt medicated for pain, pt has signed discharge paperwork, case management setting up discharge to home. immobilizer intact+csm/pulses to lower extremity, family at bedside, call alvarado within reach, will continue to monitor
--- NOTE | 2023-10-22 13:45 | MHC.CM.ED ---
PT REFUSING STR, WILL DC HOME WITH FAMILY SUPPORT SON AT BEDSIDE BLS TRANSPORT ARRANGED VIA [facility] FOR 1600 HOURS AUTH # [id number]
[2023-10-22 16:56] VITALS: BP 133/69; PULSE 77; RESP 16; TEMP 36.9; O2SAT 98
[2023-10-22 17:25] VITALS: BP 143/68; PULSE 83; RESP 18; TEMP 36.6; O2SAT 98
== END 2023-10-22 17:26 | disposition home or self-care (01) ==
PROVIDERS: Emergency Medicine Emergency Medical Services; Emergency Provider Emergency Medicine Emergency Medical Services; PCP General Practice
DX: S82.402A Unspecified fracture of shaft of left fibula, initial encounter for closed fracture (principal); I25.10 Atherosclerotic heart disease of native coronary artery without angina pectoris; N39.0 Urinary tract infection, site not specified; M25.562 Pain in left knee; M25.552 Pain in left hip; M25.551 Pain in right hip; R51.9 Headache, unspecified; M54.2 Cervicalgia; R94.31 Abnormal electrocardiogram [ECG] [EKG]; R26.81 Unsteadiness on feet; I49.8 Other specified cardiac arrhythmias; W01.10XA Fall on same level from slipping, tripping and stumbling with subsequent striking against unspecified object, initial encounter; Y93.9 Activity, unspecified; Y92.9 Unspecified place or not applicable; Y99.8 Other external cause status; Z79.899 Other long term (current) drug therapy
CPT/HCPCS: 36415; 73502; 73562; 73700; 80048; 81001; 84484; 85025; 87086; 93005; 97162; 99285

== ENCOUNTER → 2023-10-21 23:35 | Outpatient (BNV) | payer OTHER, SELFPAY | PROVIDERS: Emergency Provider Emergency Medicine Emergency Medical Services; PCP General Practice; Visit Provider Internal Medicine Cardiovascular Disease | DX: R94.31 Abnormal electrocardiogram [ECG] [EKG] (principal) | CPT/HCPCS: 93010 ==

== ENCOUNTER 2023-11-05 08:38 | Outpatient (AMB) | payer OTHER, SELFPAY ==
--- NOTE | 2023-11-05 08:41 | MHC.OFFVIS ---
Vital Signs 11/05/23 08:49 Height 5 ft 2 in Weight 137 lb BMI 25.1 Intake Visit Reasons: FC-tibial plateau, fibula ER follow up Intake Note: Sonia is a 68 year old female who presents today for a evaluation of her left knee tibial plateau fx, DOI 10/21/23. Patient reports she had some weakness in her knees and she feel on her left. She states having throbbing pain in her whole knee. Allergies cortisone [CORTISONE] Allergy (Intermediate, Verified 11/05/23 08:50) RASH hydrocortisone Allergy (Intermediate, Verified 11/05/23 08:50) Rash morphine [Morphine] Allergy (Intermediate, Verified 11/05/23 08:50) RASH, ITCHING oxycodone [From Percocet] Allergy (Intermediate, Verified 11/05/23 08:50) Nausea and Vomiting Penicillins Allergy (Intermediate, Verified 11/05/23 08:50) ITCHING sulfamethoxazole [From Bactrim] Allergy (Intermediate, Verified 11/05/23 08:50) Rash trimethoprim [From Bactrim] Allergy (Intermediate, Verified 11/05/23 08:50) Rash acetaminophen [From Percocet] Allergy (Mild, Verified 11/05/23 08:50) Unknown azithromycin Allergy (Mild, Verified 11/05/23 08:50) Unknown doxycycline Allergy (Mild, Verified 11/05/23 08:50) Unknown tramadol Allergy (Mild, Verified 11/05/23 08:50) Unknown tylenol codeine Allergy (Mild, Uncoded 10/21/23 23:32) Unknown HPI HPI FC-tibial plateau, fibula ER follow up: Details: 68-year-old female, who is Latvian speaking, presents in the office today for an evaluation of left knee pain. The patient presented to the ED on 10/21/2023 status post a fall after her bilateral lower extremities ?gave out?. X-rays and CT were obtained of the bilateral knees. She was placed in a knee immobilizer on her left knee. It was recommended for the patient to be transferred to a short-term longterm facility; however, this was declined by the patient and her son. The patient and her son reported having a PEDIATRIC NEUROLOGIST that comes to the house and said the family would also assist. Case management set up visiting nursing services. While in the office today the patient reports she had some weakness in the bilateral knees. Stating the weakness is greater in the left knee than the right knee. She also reports having a throbbing pain through the entire left knee. Patient ambulates with the use of a walker. Patient has a medical history of coronary artery disease status post bypass, currently on clopidogrel (Plavix) 75 mg PO daily. FORMERLY [facility], [facility] Medical History Anemia Rheumatic arteritis Neuropathy History of heart attack Diabetes Pancreatic insufficiency GERD (gastroesophageal reflux disease) Surgical History History of open heart surgery Hx of cardiac catheterization Hx of heart artery stent Hx of colonoscopy History of esophagogastroduodenoscopy (EGD) History of bilateral carpal tunnel release History of cholecystectomy H/O colonoscopy with polypectomy Family History Father No problems noted. Mother No problems noted. Brother No problems noted. Sister Breast cancer Lymphoma Sister No problems noted. Sister No problems noted. Sister No problems noted. Social History Household Members: None Are you a primary home care aide to a significant other at home: No Do you presently have visiting nurse or other home services: No Alcohol intake: never Patient Tobacco Use Status: Never used Tobacco Current occupational status: unemployed and disabled Review of Systems Const All systems reviewed & are unremarkable except as noted in HPI and below Physical Exam Vital Signs: BMI result Body Mass Index 25.1 Const General: cooperative and no acute distress Orientation/consciousness: patient oriented x3 Resp Effort & Inspection: normal respiratory effort and able to speak in complete sentences Cardio Peripheral pulses: Peripheral pulses 2+ throughout Skin General skin exam: no rashes or lesions noted Neuro General: patient oriented x3 Extrem Other: Left knee: Mild effusion. Small superficial abrasion over the anterior aspect of the left patella from her fall. ROM is 0-40 degrees. NVI. Office Procedures Fracture Care Fracture Billing Code: Fracture Billing Code Assessment & Plan Assessment & Plan (1) Fracture of left tibial plateau: Code(s): S82.142A - Displaced bicondylar fracture of left tibia, initial encounter for closed fracture Category: Medical Plan Ms. Marcano is a 68-year-old female, who is Latvian speaking, presents in the office today for an evaluation of left knee pain. The patient presented to the ED on 10/21/2023 status post a fall after her bilateral lower extremities ?gave out?. X-rays and CT were obtained of the bilateral knees. She was placed in a knee immobilizer on her left knee. It was recommended for the patient to be transferred to a short-term longterm facility; however, this was declined by the patient and her son. The patient and her son reported having a PEDIATRIC NEUROLOGIST that comes to the house and said the family would also assist. Case management set up visiting nursing services. While in the office today the patient reports she had some weakness in the bilateral knees. Stating the weakness is greater in the left knee than the right knee. She also reports having a throbbing pain through the entire left knee. Patient ambulates with the use of a walker. Patient has a medical history of coronary artery disease status post bypass, currently on clopidogrel (Plavix) 75 mg PO daily. The patient will have [facility] come to her home to work with her for physical therapy, a referral was made in the office today. There are no ROM restrictions with physical therapy. She was given a pediatric ACL brace, off the shelf, while in the office today. She should wear this locked in extension with ambulation and should remain non-weight bearing. She may put her toes down for balance with the use of a walker. Follow-up will be in 4-6 weeks with repeat x-rays, or sooner if needed. CT of the left knee, obtained on 10/21/2023, revealed: There is subtle focal irregularity along the lateral tibial plateau as seen on sagittal image 49, raising concern for an essentially nondisplaced fracture. There is also suggestion of a nondisplaced fibular head fracture such as on coronal image 94. Small to moderate-sized lipohemarthrosis is noted. Alignment across the knee is anatomic with mild tricompartmental joint space narrowing. Trace posterior patellar osteophytes. Additional patellar spurring at the insertion of the quadriceps tendon. Extensive vascular calcification. X-rays of the bilateral knees, obtained on 10/21/2023, revealed: No fracture or subluxation. Moderate tricompartmental degenerative changes. Small to moderate size joint effusion. Surgical clips overlying the posterior compartment of the knee. Vascular stent projecting over the distal femoral vessels. Severe vascular calcifications. Orders: Orders PT Evaluation and Treatment Today S82.143A - Displaced bicondylar fracture of unspecified tibia, initial encounter for closed fracture, S82.839A - Other fracture of upper and lower end of unspecified fibula, initial encounter for closed fracture Referrals [facility] Referral S82.143A - Displaced bicondylar fracture of unspecified tibia, initial encounter for closed fracture, S82.839A - Other fracture of upper and lower end of unspecified fibula, initial encounter for closed fracture Patient Instructions: Scribed by China Lozoya biomedical analytical scientist, for Charo Abrams PA-C on 11/05/2023 at 9:08 am, EST. Coding Level of Care Code New Pt Level 4 (20377) Diagnoses Fracture of left tibial plateau S82.142A CPT Codes Fracture Care - Fracture Billing Code: Fracture Billing Code ([id number])
[2023-11-05 08:49] VITALS: BMI 25.1
== END 2023-11-05 09:20 | disposition home or self-care (01) ==
PROVIDERS: PCP General Practice; Visit Provider Physician Assistant
DX: S82.142A Displaced bicondylar fracture of left tibia, initial encounter for closed fracture (principal)
CPT/HCPCS: 99203

== ENCOUNTER → 2023-11-05 08:38 | Outpatient (BNVA) | payer OTHER, SELFPAY | PROVIDERS: PCP General Practice; Visit Provider Physician Assistant | DX: S82.142A Displaced bicondylar fracture of left tibia, initial encounter for closed fracture (principal) | CPT/HCPCS: 99202 ==

== ENCOUNTER 2023-12-08 16:02 | Outpatient (REF) | payer OTHER, SELFPAY ==
[2023-12-08 18:13] LABS: Appearance Urine Clear; Color Urine Yellow; Glucose Urine UA Negative (Negative); Leukocyte Esterase Urine Negative (Negative); Nitrite Urine Negative (Negative); PH 8.5 (5.0-9.0); Urine Blood Negative (Negative); Urine Ketones Negative (Negative); Urine Protein Negative (Neg-Trace)
[2023-12-08 18:17] LABS: Bacteria Urine None Seen (None Seen); Hyaline Casts Urine 0-2 /LPF (0-2); RBC Urine 0-2 /HPF (0-2); Squamous Epithelial Cell Urine 0-2 /HPF (0-2); WBC Urine 0-5 /HPF (0-5)
[2023-12-08 18:25] LABS: MANUAL DIFF FLAG NO
[2023-12-08 18:37] LABS: Basophils Absolute Auto 0.1 X10*3/uL (0.0-0.2); Basophils Percent Auto 1.3 % (0-2); Eosinophils Absolute Auto 1.2 X10*3/uL (0.0-0.4); Hematocrit 31.7 % (37.0-47.0); Hemoglobin 9.9 g/dl (12.0-16.0); Imm Gran Abs Auto 0.05 X10*3/uL (0.00-0.03); Imm Gran Pct Auto 0.5 % (0.0-0.4); Lymphocytes Absolute Auto 2.8 X10*3/uL (1.2-4.9); Lymphocytes Percent Auto 28.7 % (20-40); Mean Corpuscular HGB Conc 31.2 g/dl (31.0-35.0); Mean Corpuscular Volume 76.8 fL (80.0-98.0); Mean Platelet Volume 11.6 fL (9.4-12.3); Monocytes Percent Auto 9.9 % (2-11); Neutrophils Absolute Auto 4.6 x10*3/uL (2.0-8.3); Neutrophils Percent Auto 47.6 % (45-73); Platelet Count 286 X10*3/uL (160-400); Red Blood Count 4.13 X10*6/uL (4.20-5.50); White Blood Count 9.7 X10*3/uL (4.8-10.8)
[2023-12-08 18:58] LABS: Calcium 9.6 mg/dL (8.4-10.2); Iron 40 mcg/dL (30-160); Percent Iron Saturation 13 % (15-50); Total Iron Binding Capacity 304 mcg/dL (228-428); Unsaturated Iron Binding 264 ug/dL
[2023-12-08 19:12] LABS: Anion Gap 15 (12-20); Blood Urea Nitrogen 17 mg/dL (9-16); Calcium 9.5 mg/dL (8.4-10.2); Carbon Dioxide 29 mmol/L (22-29); Chloride 96 mmol/L (96-108); Estimated Glomerular Filt Rate 55; Glucose Random 148 mg/dL (60-115); Magnesium 1.5 mg/dL (1.6-2.6); Potassium 4.3 mmol/L (3.3-5.1); Sodium 136 mmol/L (135-145)
[2023-12-08 19:18] LABS: TSH reflex Free T4 1.57 uIU/mL (0.32-4.0)
[2023-12-08 19:29] LABS: Ferritin 51 ng/mL (10-250)
== END 2023-12-08 16:03 | disposition home or self-care (01) ==
LOC: HO.HHCL 16:02
PROVIDERS: Internal Medicine; Internal Medicine Gastroenterology; Visit Provider General Practice
DX: E55.9 Vitamin D deficiency, unspecified (principal); R63.4 Abnormal weight loss; R82.90 Unspecified abnormal findings in urine; D64.9 Anemia, unspecified; R53.1 Weakness
CPT/HCPCS: 36415; 80048; 81001; 82310; 82728; 83540; 83735; 84443; 85025; 87086

== ENCOUNTER 2023-12-16 12:52 | Outpatient (REF) | payer OTHER, SELFPAY | END 2023-12-16 12:53 | disposition home or self-care (01) | LOC: HO.HOSX 12:52 | PROVIDERS: Visit Provider Physician Assistant | DX: Z13.89 Encounter for screening for other disorder (principal) ==

== ENCOUNTER 2023-12-24 10:30 | Outpatient (AMB) | payer OTHER, SELFPAY ==
--- NOTE | 2023-12-24 10:58 | A.OFFVIS_ITS ---
Vital Signs 12/24/23 11:00 Height 5 ft 2 in Weight 137 lb BMI 25.1 Intake Visit Reasons: OV - left tibial plateau fx, DOI 10/21/23 Intake Note: Sonia is a 68 year old female who presents today for a evaluation of her left tibial plateau fx, DOI 10/21/23. Patient reports she had a fall about 2 weeks ago and when she was walking she bumped her knee with the bed frame. She is having a lot of pain in her knee since she has been bumping it and when she fell twice. Patient states that her pain is a 7 out of 10 on the pain scale. Patient would like her son to translate for her. Allergies cortisone [CORTISONE] Allergy (Intermediate, Verified 11/05/23 08:50) RASH hydrocortisone Allergy (Intermediate, Verified 11/05/23 08:50) Rash morphine [Morphine] Allergy (Intermediate, Verified 11/05/23 08:50) RASH, ITCHING oxycodone [From Percocet] Allergy (Intermediate, Verified 11/05/23 08:50) Nausea and Vomiting Penicillins Allergy (Intermediate, Verified 11/05/23 08:50) ITCHING sulfamethoxazole [From Bactrim] Allergy (Intermediate, Verified 11/05/23 08:50) Rash trimethoprim [From Bactrim] Allergy (Intermediate, Verified 11/05/23 08:50) Rash acetaminophen [From Percocet] Allergy (Mild, Verified 11/05/23 08:50) Unknown azithromycin Allergy (Mild, Verified 11/05/23 08:50) Unknown doxycycline Allergy (Mild, Verified 11/05/23 08:50) Unknown tramadol Allergy (Mild, Verified 11/05/23 08:50) Unknown tylenol codeine Allergy (Mild, Uncoded 10/21/23 23:32) Unknown HPI HPI OV - left tibial plateau fx, DOI 10/21/23: Details: 68-year-old female, who is [place] speaking, presents in the office today for a follow-up of a left tibial plateau fracture, which occurred on 10/21/23 status post a fall. I last saw the patient in the office on 11/05/23 when she was to have VNA come to her house to work on PT. She was given an ACL brace to wear locked in extension while ambulating and she was instructed to remain non-weight bearing.? ? While in the office today, the patient confirms falling about two weeks ago while ambulating. At that time, she hit her knee on the bedframe. She also reports a second fall with ?a lot? of pain in the left knee. She states her pain is currently 7/10. ? [facility] Medical History Anemia Rheumatic arteritis Neuropathy History of heart attack Diabetes Pancreatic insufficiency GERD (gastroesophageal reflux disease) Surgical History History of open heart surgery Hx of cardiac catheterization Hx of heart artery stent Hx of colonoscopy History of esophagogastroduodenoscopy (EGD) History of bilateral carpal tunnel release History of cholecystectomy H/O colonoscopy with polypectomy Family History Father No problems noted. Mother No problems noted. Brother No problems noted. Sister Breast cancer Lymphoma Sister No problems noted. Sister No problems noted. Sister No problems noted. Social History Household Members: None Are you a primary direct support professional caregiver to a significant other at home: No Do you presently have visiting nurse or other home services: No Alcohol intake: never Patient Tobacco Use Status: Never used Tobacco Current occupational status: unemployed and disabled Review of Systems Const All systems reviewed & are unremarkable except as noted in HPI and below Physical Exam Vital Signs: BMI result Body Mass Index 25.1 Const General: cooperative, healthy appearing and no acute distress Resp Effort & Inspection: normal respiratory effort and able to speak in complete sentences Cardio Rate: regular rate Peripheral pulses: Peripheral pulses 2+ throughout GI Palpation (GI): Soft to palpation Skin Lesions: no lesions Rashes: no rashes Extrem Other: Left knee: ROM is 0-90 degrees. No tenderness to palpation along the medial or lateral joint lines. ? Assessment & Plan Assessment & Plan (1) Fracture of left tibial plateau: Code(s): S82.142A - Displaced bicondylar fracture of left tibia, initial encounter for closed fracture Category: Medical Plan Ms. Marcano is a 68-year-old female, who is [place] speaking, presents in the office today for a follow-up of a left tibial plateau fracture, which occurred on 10/21/23 status post a fall. I last saw the patient in the office on 11/05/23 when she was to have VNA come to her house to work on PT. She was given an ACL brace to wear locked in extension while ambulating and she was instructed to remain non-weight bearing.? ? While in the office today, the patient confirms falling about two weeks ago while ambulating. At that time, she hit her knee on the bedframe. She also reports a second fall with ?a lot? of pain in the left knee. She states her pain is currently 7/10.? ? The patient will continue to wear the ACL brace locked in extension. She will continue to remain non-weight bearing until 01/14/24. This date will bring her to the three month yuan. She will continue to work with physical therapy on ROM. Follow-up will be in six weeks, or sooner if needed. ? ? X-rays of the left knee which were obtained while in the office today and were reviewed by me, Charo Abrams PA-C, revealed routine healing of a left tibial plateau fracture. ? Orders: Orders XR knee LT 3V Today M25.569 - Pain in unspecified knee Patient Instructions: Scribed by China Lozoya, certified medical technician assistant, for Charo Abrams PA-C on 12/24/2023 at 10:36 am, EST.? Coding Level of Care Code Global (04591) Diagnoses Fracture of left tibial plateau S82.142A
[2023-12-24 11:00] VITALS: BMI 25.1
== END 2023-12-24 11:13 | disposition home or self-care (01) ==
PROVIDERS: PCP General Practice; Visit Provider Physician Assistant
DX: S82.142A Displaced bicondylar fracture of left tibia, initial encounter for closed fracture (principal)
CPT/HCPCS: 99213

== ENCOUNTER 2023-12-24 10:49 | Outpatient (REF) | payer OTHER, SELFPAY ==
--- NOTE | ~2023-12-24 | XR_ITS ---
XR/XR knee LT 3V IMPRESSION: 1. Rxxk-sm-pollmnin degenerative changes of bilateral knees. 2. Small left joint effusion. 3. Possible nondisplaced fracture of the left lateral tibial plateau and suggested nondisplaced fibular head fracture identified on report for CT scan of the left knee of 10/22/2023, are difficult to confirm on this exam. Electronically signed by: Evita Flaherty MD 03/22/2024 04:47 AM [facility] EXAMINATION: XR KNEE, LEFT CLINICAL INFORMATION: Pain left knee. COMPARISON: CT left knee 10/22/2023, radiographs 10/21/2023. TECHNIQUE: AP standing view of bilateral knees as well as 2 views of the left knee. FINDINGS: AP standing view of the right knee: Diffuse demineralization. Vascular calcifications. Moderate narrowing of the medial compartment and mild narrowing of the lateral compartment and small marginal osteophytes were better characterized on CT right knee of 10/22/2023. Vascular calcifications. Left knee: Diffuse demineralization. Vascular calcifications. Postsurgical changes with clips. Vascular stent visualized in the posterior left thigh. Diffuse demineralization. Small left joint effusion. Moderate narrowing of the medial compartment and mild narrowing of the lateral compartment and small marginal osteophytes were better characterized on CT left knee of 10/22/2023. Possible nondisplaced fracture of the left lateral tibial plateau and suggested nondisplaced fibular head fracture identified on report for CT scan of the left knee of 10/22/2023, are difficult to confirm on this exam.
== END 2023-12-24 10:50 | disposition home or self-care (01) ==
LOC: HO.HOSX 10:49
PROVIDERS: Visit Provider Physician Assistant
DX: M25.562 Pain in left knee (principal); S82.142A Displaced bicondylar fracture of left tibia, initial encounter for closed fracture
CPT/HCPCS: 73562; 99212

== ENCOUNTER 2023-12-28 10:05 | Outpatient (REF) | payer OTHER, SELFPAY ==
--- NOTE | 2023-12-28 10:09 | EMG_ITS ---
Bilateral tibial and peroneal motor studies were performed. Bilateral superficial peroneal, sural, and median and lateral plantar mixed studies were performed. Tibial H reflexes were obtained and needle examination was performed. IMPRESSION: Severe axonal sensory motor peripheral neuropathy. MD TATI Perry/ROCK / [id number]
== END 2023-12-28 10:06 | disposition home or self-care (01) ==
LOC: HO.NEURO 10:05
PROVIDERS: PCP General Practice; Visit Provider General Practice
DX: R53.1 Weakness (principal); R20.2 Paresthesia of skin
CPT/HCPCS: 95886; 95913

== ENCOUNTER 2024-02-04 | Outpatient (REF) | payer OTHER, SELFPAY | END 2024-02-04 00:01 | disposition home or self-care (01) | LOC: CF | PROVIDERS: Visit Provider Physician Assistant | DX: S82.142A Displaced bicondylar fracture of left tibia, initial encounter for closed fracture (principal) | CPT/HCPCS: 99212 ==

== ENCOUNTER 2024-02-04 09:48 | Outpatient (AMB) | payer OTHER, SELFPAY ==
--- NOTE | 2024-02-04 09:54 | MHC.OFFVIS ---
Vital Signs 02/04/24 09:57 Height 5 ft 2 in Weight 137 lb BMI 25.1 Intake Visit Reasons: OV - left tibial plateau fx, DOI 10/21/23 Intake Note: Sonia is a 68 year old female who presents today for a follow up of her left tibial plateau fx, DOI 10/21/23. Patient reports she is still having continuing pain in her knee. She mentions that she hasn't don't out patient PT yet. Patient mentions that she is having a record producer don't in her left estes since she has a clogged vein. Leather Sprayer Services: Leather Sprayer Present (Nura ([id number])) Allergies cortisone [CORTISONE] Allergy (Intermediate, Verified 02/04/24 09:56) RASH hydrocortisone Allergy (Intermediate, Verified 02/04/24 09:56) Rash morphine [Morphine] Allergy (Intermediate, Verified 02/04/24 09:56) RASH, ITCHING oxycodone [From Percocet] Allergy (Intermediate, Verified 02/04/24 09:56) Nausea and Vomiting Penicillins Allergy (Intermediate, Verified 02/04/24 09:56) ITCHING sulfamethoxazole [From Bactrim] Allergy (Intermediate, Verified 02/04/24 09:56) Rash trimethoprim [From Bactrim] Allergy (Intermediate, Verified 02/04/24 09:56) Rash acetaminophen [From Percocet] Allergy (Mild, Verified 02/04/24 09:56) Unknown azithromycin Allergy (Mild, Verified 02/04/24 09:56) Unknown doxycycline Allergy (Mild, Verified 02/04/24 09:56) Unknown tramadol Allergy (Mild, Verified 02/04/24 09:56) Unknown tylenol codeine Allergy (Mild, Uncoded 10/21/23 23:32) Unknown HPI HPI OV - left tibial plateau fx, DOI 10/21/23: Details: 68-year-old female, who is American speaking, presents in the office today for a follow-up of a left tibial plateau fracture, which occurred on 10/21/23 status post a fall. I last saw the patient in the office on 12/24/23 when she was instructed to continue to wear the ACL brace locked in extension and to remain non-weight bearing until 01/14/24. She was also encouraged to continue to work with physical therapy on ROM.? ? While in the office today, the patient reports she is having continued pain in the left knee. She reports she has not started to attend outpatient physical therapy. She states she is having a procedure done in the left estes due to a blood clot. ? [facility] Medical History Anemia Rheumatic arteritis Neuropathy History of heart attack Diabetes Pancreatic insufficiency GERD (gastroesophageal reflux disease) Surgical History History of open heart surgery Hx of cardiac catheterization Hx of heart artery stent Hx of colonoscopy History of esophagogastroduodenoscopy (EGD) History of bilateral carpal tunnel release History of cholecystectomy H/O colonoscopy with polypectomy Family History Father No problems noted. Mother No problems noted. Brother No problems noted. Sister Breast cancer Lymphoma Sister No problems noted. Sister No problems noted. Sister No problems noted. Social History Household Members: None Are you a primary care coordinator to a significant other at home: No Do you presently have visiting nurse or other home services: No Alcohol intake: never Patient Tobacco Use Status: Never used Tobacco Current occupational status: unemployed and disabled Review of Systems Const All systems reviewed & are unremarkable except as noted in HPI and below Physical Exam Vital Signs: BMI result Body Mass Index 25.1 Const General: cooperative, healthy appearing and no acute distress Resp Effort & Inspection: normal respiratory effort and able to speak in complete sentences Cardio Rate: regular rate Peripheral pulses: Peripheral pulses 2+ throughout GI Palpation (GI): Soft to palpation Skin Lesions: no lesions Rashes: no rashes Extrem Other: Left knee: ROM is 0-90 degrees. No tenderness to palpation along the medial or lateral joint lines. NVI. There is a small area of skin breakdown just proximal to the patella. No signs of infection. Assessment & Plan Assessment & Plan (1) Fracture of left tibial plateau: Code(s): S82.142A - Displaced bicondylar fracture of left tibia, initial encounter for closed fracture Category: Medical Plan Ms. Marcano is a 68-year-old female, who is American speaking, presents in the office today for a follow-up of a left tibial plateau fracture, which occurred on 10/21/23 status post a fall. I last saw the patient in the office on 12/24/23 when she was instructed to continue to wear the ACL brace locked in extension and to remain non-weight bearing until 01/14/24. She was also encouraged to continue to work with physical therapy on ROM.? ? While in the office today, the patient reports she is having continued pain in the left knee. She reports she has not started to attend outpatient physical therapy. She states she is having a procedure done in the left estes due to a blood clot. ?? ? There is a small area of skin breakdown just proximal to the patella from the brace rubbing with no signs of infection. The area was dressed with a foam dressing. She can discontinue the brace while she is at home but will need to continue the use of it when out of the house. A new order for physical therapy was made in the office, which she has agreed to attend. Follow-up will be in 6 weeks, or sooner if needed. ? Orders: Orders XR knee LT 3V Today M25.569 - Pain in unspecified knee PT Evaluation and Treatment Today S82.142A - Displaced bicondylar fracture of left tibia, initial encounter for closed fracture Patient Instructions: Scribed by China Lozoya medical instrument technician, for Charo Abrams PA-C on 02/04/2024 at 10:04 am, EST.? Coding Level of Care Code Est Pt Level 3 (97981) Diagnoses Fracture of left tibial plateau S82.142A
[2024-02-04 09:57] VITALS: BMI 25.1
== END 2024-02-04 10:11 | disposition home or self-care (01) ==
PROVIDERS: PCP General Practice; Visit Provider Physician Assistant
DX: S82.142A Displaced bicondylar fracture of left tibia, initial encounter for closed fracture (principal)
CPT/HCPCS: 99213

== ENCOUNTER 2024-02-17 10:54 | Outpatient (REF) | payer OTHER, SELFPAY ==
[2024-02-17 11:26] LABS: MANUAL DIFF FLAG NO
[2024-02-17 11:58] LABS: Basophils Absolute Auto 0.1 X10*3/uL (0.0-0.2); Basophils Percent Auto 1.6 % (0-2); Eosinophils Absolute Auto 0.6 X10*3/uL (0.0-0.4); Eosinophils Percent Auto 8.6 % (0-4); Hematocrit 32.3 % (37.0-47.0); Hemoglobin 10.4 g/dl (12.0-16.0); Imm Gran Abs Auto 0.02 X10*3/uL (0.00-0.03); Imm Gran Pct Auto 0.3 % (0.0-0.4); Lymphocytes Absolute Auto 2.6 X10*3/uL (1.2-4.9); Lymphocytes Percent Auto 37.5 % (20-40); Mean Corpuscular HGB Conc 32.2 g/dl (31.0-35.0); Mean Corpuscular Hemoglobin 26.9 pg (27.0-33.0); Mean Corpuscular Volume 83.7 fL (80.0-98.0); Mean Platelet Volume 11.8 fL (9.4-12.3); Monocytes Absolute Auto 0.7 X10*3/uL (0.1-1.2); Monocytes Percent Auto 10.2 % (2-11); Neutrophils Absolute Auto 2.9 x10*3/uL (2.0-8.3); Neutrophils Percent Auto 41.8 % (45-73); Platelet Count 274 X10*3/uL (160-400); Red Blood Count 3.86 X10*6/uL (4.20-5.50)
[2024-02-17 12:30] LABS: Blood Urea Nitrogen 15 mg/dL (9-16); Estimated Glomerular Filt Rate 56
== END 2024-02-17 10:55 | disposition home or self-care (01) ==
LOC: HO.LAB 10:54
PROVIDERS: Absent Provider Internal Medicine Nephrology; PCP General Practice; Visit Provider Radiology Vascular & Interventional Radiology
DX: R79.9 Abnormal finding of blood chemistry, unspecified (principal); R94.4 Abnormal results of kidney function studies; D50.8 Other iron deficiency anemias
CPT/HCPCS: 36415; 82565; 84520; 85025

== ENCOUNTER 2024-03-04 09:55 | Outpatient (REF) | payer OTHER, SELFPAY ==
[2024-03-04 11:49] LABS: Blood Urea Nitrogen 13 mg/dL (9-16); Estimated Glomerular Filt Rate 57
== END 2024-03-04 09:56 | disposition home or self-care (01) ==
LOC: HO.LAB 09:55
PROVIDERS: PCP General Practice; Visit Provider Radiology Vascular & Interventional Radiology
DX: R79.89 Other specified abnormal findings of blood chemistry (principal); R94.4 Abnormal results of kidney function studies
CPT/HCPCS: 36415; 82565; 84520

== ENCOUNTER 2024-03-17 09:47 | Outpatient (AMB) | payer OTHER, SELFPAY ==
--- NOTE | 2024-03-17 09:53 | A.OFFVIS_ITS ---
Intake Visit Reasons: OV-LT tibial plateau fx,-6Wk follow up Intake Note: Sonia is a 68 year old female who presents today for a follow up of her left tibial plateau fx, DOI 10/21/23. Patient reports she is doing well. She worked with PT and noticed improvements. Cop Examiner Services: Cop Examiner Present (Nura ([id number])) Allergies cortisone [CORTISONE] Allergy (Intermediate, Verified 03/17/24 09:58) RASH hydrocortisone Allergy (Intermediate, Verified 03/17/24 09:58) Rash morphine [Morphine] Allergy (Intermediate, Verified 03/17/24 09:58) RASH, ITCHING oxycodone [From Percocet] Allergy (Intermediate, Verified 03/17/24 09:58) Nausea and Vomiting Penicillins Allergy (Intermediate, Verified 03/17/24 09:58) ITCHING sulfamethoxazole [From Bactrim] Allergy (Intermediate, Verified 03/17/24 09:58) Rash trimethoprim [From Bactrim] Allergy (Intermediate, Verified 03/17/24 09:58) Rash acetaminophen [From Percocet] Allergy (Mild, Verified 03/17/24 09:58) Unknown azithromycin Allergy (Mild, Verified 03/17/24 09:58) Unknown doxycycline Allergy (Mild, Verified 03/17/24 09:58) Unknown tramadol Allergy (Mild, Verified 03/17/24 09:58) Unknown tylenol codeine Allergy (Mild, Uncoded 10/21/23 23:32) Unknown HPI HPI OV-LT tibial plateau fx,-6Wk follow up: Details: 68-year-old female, who is Citizen Of [place] speaking, presents in the office today for a follow-up of a left tibial plateau fracture, which occurred on 10/21/23 status post a fall. I last saw the patient in the office on 02/04/24 when she reported persistent pain in the left knee. She had not started physical therapy at that time. Therefore, a new referral was placed to PT. She had a small skin breakdown just proximal to the patella due to rubbing of the brace. No signs of infection were noted at that time. The wound was dressed with a foam dressing and recommended she discontinue the use of brace only when she is at home. While in the office today, the patient reports she is doing well. She attended physical therapy sessions and noticed improvements from PT. PFSH Medical History Anemia Rheumatic arteritis Neuropathy History of heart attack Diabetes Pancreatic insufficiency GERD (gastroesophageal reflux disease) Surgical History History of open heart surgery Hx of cardiac catheterization Hx of heart artery stent Hx of colonoscopy History of esophagogastroduodenoscopy (EGD) History of bilateral carpal tunnel release History of cholecystectomy H/O colonoscopy with polypectomy Family History Father No problems noted. Mother No problems noted. Brother No problems noted. Sister Breast cancer Lymphoma Sister No problems noted. Sister No problems noted. Sister No problems noted. Social History Household Members: None Are you a primary long term care pharmacist to a significant other at home: No Do you presently have visiting nurse or other home services: No Alcohol intake: never Patient Tobacco Use Status: Never used Tobacco Current occupational status: unemployed and disabled Review of Systems Const All systems reviewed & are unremarkable except as noted in HPI and below Physical Exam Const General: cooperative, healthy appearing and no acute distress Resp Effort & Inspection: normal respiratory effort and able to speak in complete sentences Cardio Rate: regular rate Peripheral pulses: Peripheral pulses 2+ throughout GI Palpation (GI): Soft to palpation Skin Lesions: no lesions Rashes: no rashes Extrem Other: Left knee: ROM is 0-100 degrees. No tenderness to palpation along the medial or lateral joint lines. NVI. Assessment & Plan Assessment & Plan (1) Fracture of left tibial plateau: Code(s): S82.142A - Displaced bicondylar fracture of left tibia, initial encounter for closed fracture Category: Medical Plan 68-year-old female, who is Citizen Of [place] speaking, presents in the office today for a follow-up of a left tibial plateau fracture, which occurred on 10/21/23 status post a fall. I last saw the patient in the office on 02/04/24 when she reported persistent pain in the left knee. She had not started physical therapy at that time. Therefore, a new referral was placed to PT. She had a small skin breakdown just proximal to the patella due to rubbing of brace. No signs of infection noted at that time. The wound was dressed with a foam dressing and recommended she can discontinue the use of brace only when she is at home. While in the office today, the patient reports she is doing well. She attended physical therapy sessions and noticed improvements from it. The patient can resume back to normal activities as tolerated. She can use cane or walker as needed to assist with safe ambulation. Follow-up will be PRN, or sooner if needed Patient Instructions: Scribed by Liz Robles medical management specialist, for Charo Abrams PA-C on 03/17/24 at 10:16 am EST. Coding Level of Care Code Est Pt Level 3 (81735) Diagnoses Fracture of left tibial plateau S82.142A
== END 2024-03-17 09:58 | disposition home or self-care (01) ==
LOC: HO.HOS 09:47
PROVIDERS: PCP General Practice; Visit Provider Physician Assistant
DX: S82.142A Displaced bicondylar fracture of left tibia, initial encounter for closed fracture (principal)
CPT/HCPCS: 99213

== ENCOUNTER → 2024-03-17 09:47 | Outpatient (BNVA) | payer OTHER, SELFPAY | PROVIDERS: PCP General Practice; Visit Provider Physician Assistant | DX: S82.142A Displaced bicondylar fracture of left tibia, initial encounter for closed fracture (principal); W18.30XA Fall on same level, unspecified, initial encounter; Y93.9 Activity, unspecified; Y92.9 Unspecified place or not applicable; Y99.9 Unspecified external cause status | CPT/HCPCS: 99212 ==

== ENCOUNTER 2024-06-30 13:49 | Outpatient (REF) | payer OTHER, SELFPAY ==
--- OUTSIDE RECORDS SUMMARY | 2024-06-30 13:53 | XMS_ITS | Encounter Summary ---
Author Organization [employer] Address [address] [facility] [place] [address] Care Team Providers Care Hvac Services Professional Name Role Phone Shawna Gamble MD Primary Care Provider [phone] Encounter Details Date Type Department Care Team (Late st Contact Info) Description 12/01/2023 Orders Only [facility] [address] [place], [place] [phone] Shawna Gamble MD [address] [place] [address] Closed fracture of medial portion of left tibial plateau with routine healing, subsequent encounter (Primary Dx) Social History Tobacco Use Types Packs/Day Years Used Date Smoking Tobacco: Never Passive Smoke Exposure: Never Smokeless Tobacco: Never Alcohol Use Standard Drinks/Week Comments Never 0 (1 standard drink = 0.6 oz pur e alcohol) Depression Answer Date Recorded Patient Health Questionnaire-9 Score 6 10/15/2023 Patient Health Questionnaire-9 Score 6 10/15/2023 Last PHQ-9: Questionnaire Data Not on file 0 10/15/2023 Housing Stability Answer Date Recorded What is your housing situation today? I have amador telles 03/01/[address] you li ve. Do you have problems with any of the following? None of the above 03/01/2023 Food Insecurity Answer Date Recorded Within the past 12 months, y ou worried that your food would run out before you got money to buy more: Never True 03/01/2023 Within the past 12 months,th e food you bought just didn't last and you didn't have enough money to get more: Never True Transportation Answer Date Recorded In the past 12 months, has l ack of transportation kept you from medical appts, meetings, work or from getting things needed for daily living? No 03/01/2023 Utilities Answer Date Recorded In the past 12 months, has t he electric, gas, oil or water company threatened to shut off services in your home? No 03/01/2023 Depression Answer Date Recorded Patient Health Questionnaire-2 Score 2 10/15/2023 Comments Unknown Sex and Gender Information Value Date Recorded Sex Assigned at Female 03/16/2022 10:14 AM EDT Legal Sex Female 10:14 AM EDT Gender Identity Female 03/16/2022 10:14 AM EDT Sexual Orientation Straight 03/16/2022 10 :14 AM EDT documented as of this encounter Plan of Treatment Not on file documented as of this encounter Visit Diagnoses Diagnosis Closed fracture of medial portion of left tibial plateau with routine healing, subsequent encounter- Primary documented in this encounter Additional Health Concerns Assessment Noted Time PHQ-9 Depression Total Score: 6 10/15/19 24 11:05 AM EDT documented as of this encounter Care Teams Hvac Services Professional Relationship Specialty Start Date End Date Shawna Gamble MD [address] [place] [address] PCP - General Family Medicine 05/13/22 documented as of this encounter
--- OUTSIDE RECORDS SUMMARY | 2024-06-30 13:53 | XMS_ITS | Encounter Summary ---
Author Organization [employer] Address [address] [facility] [address] [place] [address] Care Team Providers Care News Specialist Name Role Phone Shawna Gamble MD Primary Care Provider [phone] Reason for Visit * Reason Comments Med Change Request Encounter Details Date Type Department Care Team ([facility] Contact Info) Description 02/10/2024 Refill [facility] MEDICINE [address] [place] [address] Anisha Mc MD [address] [place] [address] Social History Tobacco Use Types Packs/Day Years [...] documented as of this encounter Visit Diagnoses Not on filedocumented in this encounter Additional Health Concerns Assessment Noted Time PHQ-9 Depression Total Score: 6 10/15/19 24 11:05 AM EDT documented as of this encounter Care Teams News Specialist Relationship Specialty Start Date End Date Shawna Gamble MD [address] [place] [id number] PCP - General Family Medicine 05/13/22 documented as of this encounter
--- OUTSIDE RECORDS SUMMARY | 2024-06-30 13:53 | XMS_ITS | Encounter Summary ---
Author Organization [employer] [facility] Address [address] [place] [address] 7t [place] [address] Care Team Providers Care Welfare Case Worker Name Role Phone Makenna Trinidad MD Primary Care Provider Daphneync Shawna Kirkland MD Primary Care Provider [phone] Encounter Details Date Type Department Care Team (Latest Contact Info) Description 08/23/2018 Abstract [facility] Dental, Provider, DDS Social History Tobacco Use Types Packs/Day Years Used Date Smoking Tobacco: Never Assessed Comments Unknown Sex and Gender Information Value Date Recorded Sex Assigned at Female 03/16/2022 10:14 AM EDT Legal Sex Female 10:14 AM EDT Gender Identity Female 03/16/2022 10:14 AM EDT Sexual Orientation Straight 03/16/2022 10 :14 AM EDT documented as of this encounter Plan of Treatment Not on file documented as of this encounter Visit Diagnoses Not on filedocumented in this encounter Care Teams Welfare Case Worker Relationship Specialty Start Date End Date Makenna Trinidad MD PCP - General Family Medicine 03/24/19 05/12/22 Shawna Gamble MD [address] [place] [id number] PCP - General Family Medicine 05/13/22 documented as of this encounter
--- OUTSIDE RECORDS SUMMARY | 2024-06-30 13:53 | XMS_ITS | Encounter Summary ---
Author Organization [employer] Address [address] [place] [address] Care Team Providers Care Staff Therapist Name Role Phone Shawna Gamble MD Primary Care Provider [phone] Encounter Details Date Type Department Care Team (Late st Contact Info) Description 09/27/2023 Orders Only [facility] MEDICINE [address] [place] [address] ProviderShahrzad MD Social History Tobacco Use Types Packs/Day Years Used Date Smoking Tobacco: Never Passive Smoke Exposure: Never Smokeless Tobacco: Never Alcohol Use Standard Drinks/Week Comments Never 0 (1 standard drink = 0.6 oz pur e alcohol) Housing Stability Answer Date Recorded What is [...] Answer Date Recorded Patient Health Questionnaire-2 Score 0 06/05/2022 Comments Unknown Sex and Gender Information Value Date Recorded Sex Assigned at Female 03/16/2022 10:14 AM EDT Legal Sex Female 10:14 AM EDT Gender Identity Female 03/16/2022 10:14 AM EDT Sexual Orientation Straight 03/16/2022 10 :14 AM EDT documented as of this encounter Plan of Treatment Not on file documented as of this encounter Procedures Procedure Name Priority Date/Time Associated Diagnosis Comments HM COLONOSCOPY Routine 10/11/2020 9:13 AM EDT documented in this encounter Results * Hm Colonoscopy (10/11/2020 9:13 AM EDT) Historical Provider HEALTH MAINTENANCE Final Result documented in this encounter Visit Diagnoses Not on filedocumented in this encounter Care Teams Staff Therapist Relationship Specialty Start Date End Date Shawna Gamble MD [address] [place] [address] PCP - General Family Medicine 05/13/22 documented as of this encounter
--- OUTSIDE RECORDS SUMMARY | 2024-06-30 13:53 | XMS_ITS | Encounter Summary ---
Author Organization [employer] Address [address] [place] [address] 7t [place] [address] Care Team Providers Care Wooden Frame Builder Name Role Phone Shawna Gamble MD Primary Care Provider [phone] Reason for Visit * Reason Onset Date Comments requesting script 05/13/2022 Encounter Details Date Type Department Care Team (Late st Contact Info) Description 05/13/2022 Telephone [facility] [address] [place] [address] Makenna Trinidad MD requesting script Social History Tobacco Use Types Packs/Day Years Used Date Smoking Tobacco: Never Assessed Comments Unknown Sex and Gender Information Value Date Recorded Sex Assigned at Female 03/16/2022 10:14 AM EDT Legal Sex Female 10:14 AM EDT Gender Identity Female 03/16/2022 10:14 AM EDT Sexual Orientation Straight 03/16/2022 10 :14 AM EDT documented as of this encounter Miscellaneous Notes * Telephone Encounter - Edelmira Lopez - 05/21/2022 1:06 PM EST Scripts generated for signature * Telephone Encounter - Selma Crawford RN - 05/15/2022 2:[address] to pt at [phone] via [employer] Truck Driver. Pt states she's in need of body wipes, Large pull ups. large gloves d/t incontinence of urine when pt coughs. Pt states, you guys have always supplied me with these. Will message Dr. Gamble for script. Pt to F/U PRN. * Telephone Encounter - Jim Nathaniel - 05/13/2022 12:33 PM EST Tc from pt requesting script for body wipes, Large pull ups. Large gloves would like for script to be send to [facility] Please contact pt at [phone] documented in this encounter Plan of Treatment Not on file documented as of this encounter Visit Diagnoses Not on filedocumented in this encounter Care Teams Wooden Frame Builder Relationship Specialty Start Date End Date Shawna Gamble MD [address] [place] [id number] PCP - General Family Medicine 05/13/22 documented as of this encounter
--- OUTSIDE RECORDS SUMMARY | 2024-06-30 13:53 | XMS_ITS | Encounter Summary ---
Author Organization [employer] Address [address] [place] [address] [address] [place] [address] Care Team Providers Care Feed Adviser Name Role Phone Shawna Gamble MD Primary Care Provider [phone] Reason for Visit * Reason Onset Date Comments FYI 08/21/2022 Encounter Details Date Type Department Care Team ([facility] st Contact Info) Description 08/21/2022 Telephone [facility] MEDICINE [address] [place] [address] Shawna Gamble MD [address] [place] [address] FYI Social History Tobacco Use Types Packs/Day Years Used Date Smoking Tobacco: Never Smokeless Tobacco: Never Depression Answer Date Recorded Patient Health Questionnaire-9 [...] Orientation Straight 03/16/2022 10 :14 AM EDT COVID-19 Exposure Response Date Recorded In the last 10 days, have yo u been in contact with someone who was confirmed or suspected to have Coronavirus/COVID-19? No / Unsure 10/30/2022 1:42 PM EDT documented as of this encounter Miscellaneous Notes * Telephone Encounter - An Brown RN - 08/21/2022 1:03 PM EDT Noted * Telephone Encounter - Kwame Espino - 08/21/2022 12:54 PM EDT Tc from [facility] would like to inform PCP that missed visit today due to feeling sick, States sees pt for occupational therapy. Advised will leave a message as a FYI. Please contact at [phone] documented in this encounter Plan of Treatment Not on file documented as of this encounter Visit Diagnoses Not on filedocumented in this encounter Care Teams Feed Adviser Relationship Specialty Start Date End Date Shawna Gamble MD [address] [place] [address] PCP - General Family Medicine 05/13/22 documented as of this encounter
--- OUTSIDE RECORDS SUMMARY | 2024-06-30 13:53 | XMS_ITS | Encounter Summary ---
Author Organization [employer] Address [address] [facility] [place] [address] Care Team Providers Care Prototype Assembler Electronics Name Role Phone Shawna Gamble MD Primary Care Provider [phone] Encounter Details Date Type Department Care Team (Late st Contact Info) Description 01/06/2024 Orders Only [facility] [address] [place] [address] Anisha Mc MD [address] [place] [address] Social History Tobacco Use Types Packs/Day Years [...] documented as of this encounter Care Teams Prototype Assembler Electronics Relationship Specialty Start Date End Date Shawna Gamble MD [address] [place] [id number] PCP - General Family Medicine 05/13/22 documented as of this encounter
--- OUTSIDE RECORDS SUMMARY | 2024-06-30 13:53 | XMS_ITS | Clinical Summary ---
Author Organization [employer] Address [address] [place] [address] 7 [place] [address] Care Team Providers Care Barrel Scraper Name Role Phone Shawna Gamble MD Primary Care Provider [phone] Allergies Active Allergy Reactions Criticality Noted Date Comments Acetaminophen 04/04/2014 Acetaminophen-Codeine Anxiety Low 06/08/2022 Azithromycin Itching 10/30/2022 Cortisone 06/08/2022 Other reaction(s): itching all over Doxycycline 06/08/2022 Other reaction(s): itching all over Ketorolac Tromethamine Unknown 11/07/2023 Metformin 06/17/2010 Other reaction(s): GI intolerance Morphine 06/08/2022 Oxycodone 04/04/2014 Oxycodone-Acetaminophen Unknown 11/07/2023 Penicillins 06/17/2010 Other reaction(s): Rash, rash Other reaction(s): Not available Pioglitazone 06/17/2010 Other reaction(s): fluid retention Sulfa Antibiotics 06/08/2022 Other reaction(s): itching all over Sulfamethoxazole-Trimethopr im 06/08/2022 Other reaction(s): hives Tramadol 06/08/2022 Trimethoprim 06/17/2010 Other reaction(s): Rash, swollen lips Medications gabapentin (Neurontin) 600 MG tablet TOME BERNABE TABLETA CUATRO VECES AL MADIHA 90 2 Active metoprolol tartrate (Lopressor) 25 MG tablet Take 25 mg by mouth. Take with food. 2 Active Trulance tablet tablet 2 Active triamcinolone (Kenalog) 0.1 % cream Apply topically 2 times daily. to affected area 2 Active insulin pen needle (BD Pen Needle Micro U/F) 32G x 6 mm misc BD Megha 2nd Gen Pen Needle 32 gauge x 5/32 USE FOR INSULIN INJECTIONS ONCE DAILY Active multivitamin with minerals (Cerovite) 18-400 mg-mcg tablet tablet one pill daily 1 Active senna (Senokot) 8.6 MG tablet Take 17.2 mg by mouth. 2 Active cholecalciferol (Vitamin D-3) 250 MCG (40067 UT) capsule TAKE 1 CAPSULE BY MOUTH TWICE WEEKLY FOR 3 MONTHS Active clopidogrel (Plavix) 75 MG tablet Take 1 tablet by mouth 1 (one) time each day. 3 Active Santyl 250 UNIT/GM ointment APPLY TO FOOT ULCER IN THICK LAYER DAILY, DIRECTED 3 Active docusate sodium (Colace) 100 MG capsule 3 Active traZODone (Desyrel) 100 MG tablet Take 100 mg by mouth at bedtime. 3 Active omeprazole (PriLOSEC) [address] capsule Take 40 mg by mouth. 2 Active Blood Glucose Monitoring Suppl (ONE TOUCH ULTRA 2) w/Device kit 1 each 2 times daily. 1 kit 3 Active OneTouch Delica Lancets 33G [facility] [place] Use to test blood sugar 2 times daily 100 each 11 3 Active amitriptyline (Elavil) 50 MG tablet TAKE 1 TABLET AT BEDTIME FOR 1 WEEK THEN 2 TABLETS AT BEDTIME ONCE A DAY 30 DAY(S) 4 Active furosemide (Lasix) 20 MG tablet TAKE 1 TABLET BY MOUTH EVERY DAY FOR 30 DAYS 3 Active mirtazapine (Remeron) 45 MG tablet TAKE 1 TABLET BY MOUTH EVERY DAY AT BEDTIME FOR 30 DAYS 4 Active sertraline (Zoloft) 50 MG tablet TAKE 1 TABLET BY MOUTH EVERY DAY FOR 30 DAYS 4 Active Aspirin Low Dose 81 MG EC tabletIndication s:Type 2 diabetes mellitus without complication, without long-term current use of insulin (CMS/[facility]) TAKE 1 TABLET (81 MG) BY MOUTH IN THE MORNING 90 tablet 3 4 Active FreeStyle lancetsIndicatio ns:Type 2 diabetes mellitus without complication, without long-term current use of insulin ([facility]) USE TO TEST 3 TIMES DAILY 100 each 11 4 Active loratadine (Claritin) 10 MG tablet TAKE 1 TABLET BY MOUTH EVERY DAY 90 tablet 1 4 Active pilocarpine (Salagen) 5 MG tablet Take 1 tablet (5 mg) by mouth 3 times daily. 90 tablet 11 4 10/20/19 25 Active lisinopril 40 MG tablet TAKE 1 TABLET BY MOUTH EVERY DAY 90 tablet 3 4 Active metFORMIN XR (Glucophage-XR) 500 MG 24 hr tablet TAKE 2 TABLET BY ORAL ROUTE 2 TIMES EVERY DAY WITH THE EVENING MEAL 360 tablet 3 4 Active ferrous gluconate (Fergon) 324 (37.5 Fe) MG tablet Take 1 tablet by mouth twice daily. 180 tablet 4 Active magnesium oxide (Mag-Ox) 400 MG tablet Take 1 tablet (400 mg) by mouth 2 times daily. 180 tablet 4 Active DULoxetine (Cymbalta) [address] capsule TAKE 1 CAPSULE (20 MG) BY MOUTH AT BEDTIME. DO NOT CRUSH OR CHEW. 90 capsule 3 4 03/06/20 25 Active oxyCODONE (Roxicodone) 5 MG immediate release tablet TAKE 1 TABLETS ORAL FOUR TIMES A DAY FOR 3 DAYS NEEDED FOR SEVERE PAIN ONLY 4 Active ferrous gluconate (Fergon) 324 (38 Fe) MG tablet TAKE 1 TABLET (324 MG TOTAL) BY MOUTH 1 (ONE) TIME EACH DAY WITH BREAKFAST 4 Active atorvastatin (Lipitor) 80 MG tabletIndication s:Atherosclerosi s of coronary artery of [place] heart, unspecified vessel or lesion type, unspecified whether angina present TAKE 1 TABLET (80 MG) BY MOUTH IN THE MORNING 90 tablet 3 4 Active Xarelto 2.5 MG tablet Take 1 tablet (2.5 mg) by mouth 2 times daily. 60 tablet 6 4 Active Active Problems Problem Noted Date Diagnosed Date Chronic kidney disease, stage 2 (mild) 4 Left medial tibial plateau fracture 11/09/2023 Overview (11/09/2023): Found of CT 10/21/23 Assessment & Plan (11/09/2023 6:25 AM EDT): Went to ER for mechanical fall, feels like knees are locking CT obtained in the ER department describes likely non-displaced tibial plateau and fibula head fracture - has hinged ACL brace, to wear when walking - to use walker when walking at all times, otherwise non-weight bearing - home PT to start soon through [facility] services Fractured dental buddhist with loss of materi al 10/20/2023 Drug-induced xerostomia 10/20/2023 Depression, recurrent 10/17/2023 Assessment & Plan (10/17/2023 5:39 PM EDT): On Elavil, Remeron, Duloxetine for pain, sleep, appetite Would not add additional agents at this time She denies SI/HI Protein-calorie malnutrition, unspecified severi ty 07/16/2023 Dental caries 04/29/2023 Mixed conductive and sensorineural hearing loss of left ear 03/17/2023 Assessment & Plan (03/17/2023 9:06 AM EDT): Refer to audiology History of coronary artery bypass surgery 2022 Overview (03/17/2023): 07/2022 at [facility] Chest pain on breathing 12/04/2022 Assessment & Plan (12/04/2022 4:24 PM EDT): EKG normal in clinic Minimal pain with palpation over sternum CXR ordered today- read as normal, telephone message to alert patient of results, use muscle rub to area and notify clinic if not improved by next week Consider D-dimer if this comes back normal Deficiency of macronutrients 12/01/2022 Overview (03/15/2023): Last Assessment & Plan: Stop Trazodone, start Remeron 15mg nightly for sleep and appetite Assessment & Plan (12/01/2022 9:09 PM EDT): Stop Trazodone, start Remeron 15mg nightly for sleep and appetite Hypomagnesemia 11/30/2022 Overview (10/17/2023): Since 2021 Stopped Chlorthalidone Assessment & Plan (10/17/2023 5:36 PM EDT): Labs today returned at 1.5 Continue Mg 400mg daily Stop chlorthalidone for BP Recommended to stop omeprazole, though that may take a bit longer to implement that recommendation Assessment & Plan (03/17/2023 9:02 AM EDT): Lab returned critical low afternoon of this visit, resume Mg 400mg BID Foot infection 10/30/2022 Overview (03/15/2023): Last Assessment & Plan: Refer to wound clinic, non-healing diabetic ulcer Assessment & Plan (12/01/2022 9:07 PM EDT): Refer to wound clinic, non-healing diabetic ulcer Assessment & Plan (10/30/2022 2:51 PM EDT): Ddx: cellulitis Treating with clindamycin 300 mg q6h for 10 days. Patient has appointment with me next Wednesday. If unable to treat patient may need IV antibiotics. Asthenia 08/07/2022 Other lack of coordination 08/04/202203/15 Vitamin D deficiency 08/01/2022 Unintentional weight loss 08/01/2022 Stenosis of celiac artery 08/01/2022 Overview (04/17/2024): On Xarelto 2.5mg BID Seasonal allergies 08/01/2022 Peripheral angiopathy due to type 2 diabetes edwin litus 08/01/2022 Orthostatic hypotension 08/01/2022 Intermittent extrinsic asthma 08/01/2022 Insomnia due to medical condition 08/01/2022 Hyponatremia 08/01/2022 Dyslipidemia 08/01/2022 Chronic constipation 08/01/2022 Anemia 08/01/2022 Abdominal pain 08/01/2022 Muscle wasting and atrophy, not elsewhere classified, unspecified upper arm 07/31/2022 03/15/2023 Encounter for surgical after care following surgery on the circulatory system 07/31/2022 03/15/2023 Excessive attrition of teeth, limited to enamel 06/18/2022 Dental plaque 06/18/2022 Missing teeth, acquired 06/18/2022 Urge incontinence of urine 06/08/2022 Assessment & Plan (06/08/2022 6:12 AM EST): Chux pads for nighttime incontinence Acute sinusitis 04/27/2018 Gastritis 04/27/2018 Shoulder pain 04/27/2018 Assessment & Plan (06/08/2022 6:11 AM EST): Lidocaine patches followup in 2-3 months to consider injection Essential hypertension 01/31/2018 Assessment & Plan (10/17/2023 5:37 PM EDT): Well controlled on current medications, need to stop chlorthalidone due to low magnesium. If her blood pressure increases >140/90 to start CCB Maintenance: Metoprolol, Lisinopril BMP: Cr 0.9, eGFR > 60 Lipid Panel: Lab Results Component Value Date LDLCHOL 74 03/13/2022 ASCVD Risk: > 10%, on Atorvastatin EKG: Obtain baseline at f/u - Aerobic exercise to reduce BP. Initial goal of 30 min walk 3-5x/week. Increase as tolerated. - low-sodium diet (goal: <2g/day) and heart healthy diet such as DASH to reduce BP and prevent ASCVD. - Home BP monitoring 1-2 x day with goal of <140/90. - Seek immediate medical attention for chest pain, palpitations, SOB, syncope, or sudden changes in mental status. - Do not change or discontinue current prescriptions without first consulting health care provider Assessment & Plan (03/17/2023 9:02 AM EDT): Well controlled on current medications Maintenance: Metoprolol, chlorthalidone, LIsinopril BMP: Cr 0.9, eGFR > 60 Lipid Panel: Lab Results Component Value Date LDLCHOL 74 03/13/2022 ASCVD Risk: > 10%, on Atorvastatin EKG: Obtain baseline at f/u - Aerobic exercise to reduce BP. Initial goal of 30 min walk 3-5x/week. Increase as tolerated. - low-sodium diet (goal: <2g/day) and heart healthy diet such as DASH to reduce BP and prevent ASCVD. - Home BP monitoring 1-2 x day with goal of <140/90. - Seek immediate medical attention for chest pain, palpitations, SOB, syncope, or sudden changes in mental status. - Do not change or discontinue current prescriptions without first consulting health care provider Assessment & Plan (12/04/2022 4:23 PM EDT): Well controlled on current medications Maintenance: Metoprolol, chlorthalidone, LIsinopril BMP: Cr 0.9, eGFR > 60 Lipid Panel: ASCVD Risk: Calculate pending updated labs EKG: Obtain baseline at f/u - Aerobic exercise to reduce BP. Initial goal of 30 min walk 3-5x/week. Increase as tolerated. - low-sodium diet (goal: <2g/day) and heart healthy diet such as DASH to reduce BP and prevent ASCVD. - Home BP monitoring 1-2 x day with goal of <140/90. - Seek immediate medical attention for chest pain, palpitations, SOB, syncope, or sudden changes in mental status. - Do not change or discontinue current prescriptions without first consulting health care provider Assessment & Plan (06/08/2022 6:10 AM EST): Well controlled on current medications Maintenance: Metoprolol, Imdur BMP: Lipid Panel: ASCVD Risk: Calculate pending updated labs EKG: Obtain baseline at f/u - Aerobic exercise to reduce BP. Initial goal of 30 min walk 3-5x/week. Increase as tolerated. - low-sodium diet (goal: <2g/day) and heart healthy diet such as DASH to reduce BP and prevent ASCVD. - Home BP monitoring 1-2 x day with goal of <140/90. - Seek immediate medical attention for chest pain, palpitations, SOB, syncope, or sudden changes in mental status. - Do not change or discontinue current prescriptions without first consulting health care provider Coronary atherosclerosis 03/10/2012 Overview (03/15/2023): Last Assessment & Plan: Continue Metoprolol, Imdur Following with cardiology Assessment & Plan (06/08/2022 6:10 AM EST): Continue Metoprolol, Imdur Following with cardiology Carpal tunnel syndrome 03/10/2012 Chronic low back pain 03/10/2012 Type 2 diabetes mellitus wit h diabetic neuropathy, unspecified 03/10/2012 Assessment & Plan (07/16/2023 6:48 AM EST): Continue Metformin 500mg XR daily A1C 7.2, random sugar 143 today Microalbumin done today Awaiting diabetic shoes Assessment & Plan (03/17/2023 9:03 AM EDT): Continue Metformin 500mg XR daily A1C 6.8, random sugar 143 today Microalbumin done today Needs diabetic shoes measured and fitted, will send script Needs new blood glucose machne Assessment & Plan (06/08/2022 6:09 AM EST): Continue Gabapentin May require dose titration based on weakness Hyperlipidemia 03/10/2012 Assessment & Plan (06/08/2022 6:11 AM EST): Continue Atorvastatin 80mg daily Check lipids in 3 months Type 2 diabetes mellitus without complication Assessment & Plan (10/17/2023 5:36 PM EDT): Continue Metformin 500mg XR daily A1C 7.2, random sugar 161 today Assessment & Plan (12/04/2022 4:24 PM EDT): Continue Metformin 500mg XR daily A1C 6.8, random sugar 200 today Assessment & Plan (12/01/2022 9:09 PM EDT): Continue Metformin 500mg XR daily A1C 6.8 Assessment & Plan (06/08/2022 6:12 AM EST): Continue Metformin 500mg XR daily Encounters Date Type Department Care Team Description 05/01/2024 Telephone [facility] [address] [place] [address] Uriel Jacobs DDS 04/17/2024 Orders Only [facility] [address] [place] [address] Shawna Gamble MD 04/17/2024 Telephone [facility] [address] [place] [address] Shawna Gamble MD Medication Question 04/17/2024 Refill [facility] [address] [place] [address] Shawna Gamble MD 04/05/2024 Refill [facility] [address] [place] [address] Shawna Gamble MD Atherosclerosis of coronary artery of [place] heart, unspecified vessel or lesion type, unspecified whether angina present from Last 3 Months Immunizations Name Administration Dates Next Due Hep B, adult 04/27/2018 Influenza High-dose Quadriva lent Preservative Free 03/15/2023,03/04/2022 Influenza Quadrivalent Adjuvanted 03/04/2022, Influenza injectable quadriv alent IIV4 with preservative 01/31/2018,02/15/2015 Influenza injectable quadriv alent preservative free 04/02/2021,05/11/2019,03/03/2016 Influenza, IIV3, injectable 03/04/2022, 4,02/15/2007 Influenza, Split (incl. adri fied surface antigen) 03/06/2013,03/10/2012 Pneumococcal Conjugate PCV 13 05/11/2019 Pneumococcal Polysaccharide PPSV23 04/02/2021, SARS-CoV-2, Unspecified 03/11/2021,02/04/2021 TD (adult), 2 Lf tetanus tox oid, preservative free, adsorbed 06/04/2009,02/12/1995 Tdap 04/27/2018 Zoster, live 01/23/2020,08/06/2015 Social History Tobacco Use Types Packs/Day Years Used Date Smoking Tobacco: Never Passive Smoke Exposure: Never Smokeless Tobacco: Never Tobacco Cessation:Counseling Given: Not Answered Alcohol Use Standard Drinks/Week Comments Never 0 [...] Orientation Straight 03/16/2022 10 :14 AM EDT Last Filed Vital Signs Vital Sign Reading Time Taken Comments Blood Pressure 122/69 12/08/2023 3:40 PM EDT Pulse 75 12/08/2023 3:40 PM EDT Temperature 36.6 ??C (97.9 ??F) 12/08/2023 3:40 PM ED T Respiratory Rate 18 12/08/2023 3:40 PM EDT Oxygen Saturation 99% 10/15/2023 10:19 AM EDT Inhaled Oxygen Concentration - - Weight 63.5 kg (140 lb) 12/08/2023 3:40 PM EDT Height 160 cm (5' 3 ) 12/08/2023 3:40 PM EDT Body Mass Index 24.8 12/08/2023 3:40 PM EDT Plan of Treatment Health Maintenance Due Date Last Done Comments CT Colonography 1955 Dental X-Ray: Full Mouth 1955 FIT DNA/Cologuard 1955 FIT 1955 FOBT 1955 Sigmoidoscopy 1955 Eye Exam 09/06/1963 Alcohol/Substance Use Screening 1965 RSV Patients and Patients Aged 60 years or older (1 - Risk 60-74 years 1-dose series) 2013 Hepatitis B Vaccines (2 of 3 - 19+ 3-dose series) 05/25/2018 04/27/2018 Zoster Vaccines (2 of 3) 03/19/2020 01/23/2020, 07/16 Dental Oral Exam 12/17/2022 06/18/2022 Dental Prophylaxis 12/17/2022 06/18/2022 Diabetes: Foot Exam 10/31/2023 10/30/2022, COVID-19 Vaccine ( season) 2024 03/11/2021, 02/04/2021 Influenza Vaccine (#1) 2024 , 03/04/2022, 03/04/2022, Additional history exists Dental X-Ray: Bitewings 03/03/2024 03/02/2023, 06/18 Diabetes: Hemoglobin A1C 03/09/2024 024, 10/15/2023, 07/14/2023, Additional history exists Lipid Panel 03/15/2024 03/15/2023, 02/15, 09/08/2021 Mammogram 06/21/2024 06/21/2023, 02/15, 10/15/2020, Additional history exists Diabetes: Urine Protein Screening 07/20/2024 07/21/2023, 03/15/2023, 09/08/2021, Additional history exists Depression Screening 10/14/2024 10/15/2023, 10/15/19 SDOH Screening 10/14/2024 10/15/2023 Tobacco Screening 12/16/2024 12/17/2023 DTaP/Tdap/Td Vaccines (2 - Td or Tdap) 04/27/2028 04/27/2018, 06/04/2009, 02/12/1995 Colonoscopy 10/11/2030 10/11/2020 Colorectal Cancer Screening 10/12/2030 Postponed from 1955 (Other Medical Reasons) Pneumococcal Vaccine: 50+ Years Completed 04/02/2021, 05/11/2019, 03/02/2002 Hepatitis C Screening Completed 10/30/2022 HIB Vaccines Aged Out No longer eligi ble based on patient's age to complete this topic HPV Vaccines Aged Out No longer eligi ble based on patient's age to complete this topic Hepatitis A Vaccines Aged Out No long er eligible based on patient's age to complete this topic IPV Vaccines Aged Out No longer eligi ble based on patient's age to complete this topic Meningococcal Vaccine Aged Out No naya negar eligible based on patient's age to complete this topic RSV under 20 months Aged Out No longe r eligible based on patient's age to complete this topic Rotavirus Vaccines Aged Out No longer eligible based on patient's age to complete this topic Procedures Procedure Name Priority Date/Time Associated Diagnosis Comments POCT GLYCATED HEMOGLOBIN, TOTAL Routine 12/08/2023 3:41 PM EDT Type 2 diabetes mellitus with diabetic neuropathy, with long-term current use of insulin (CMS/HCC) BI MAMMOGRAM SCREENING TOMOSYNTHESIS BILATERAL Routine 06/21/2023 12:20 PM EST LIPID PANEL, STANDARD Routine 03/15/2023 12:17 PM EDT Type 2 diabetes mellitus with diabetic neuropathy, with long-term current use of insulin (CMS/HCC) ALBUMIN, RANDOM URINE W/CREATININE Routine 03/15/2023 12:11 PM EDT BITEWING - SINGLE RADIOGRAPHIC IMAGE Routine 03/02/2023 3:30 PM EDT Dental caries Ulcer (traumatic) of oral mucosa HEPATITIS C ANTIBODY Routine 10/30/2022 9:18 AM EDT Hypomagnesemia PERIODIC ORAL EVALUATION - ESTABLISHED PATIENT Routine 06/18/2022 9:00 AM EST Full PROPHYLAXIS - ADULT Routine 06/18/2022 8:00 AM EST HM COLONOSCOPY Routine 10/11/2020 9:13 AM EDT from Last 3 Months or Most Recently Relevant to Health Maintenance Results * (ABNORMAL) POCT HGB A1C (12/08/2023 3:41 PM EDT) Hemoglobin A1C 8.8(A) 4.0 - 6.0 % Blood 12/08/2023 3:41 PM EDT Shawna Gamble MD POINT OF CARE TEST ENTER/EDIT ORDERABLES Final Result * BI Mammogram Screening Tomosynthesis Bilateral (06/21/2023 12:20 PM EST) Anatomical Region Laterality Modality Breast Bilateral Mammography 06/21/2023 12:2 0 PM EST Narrative 07/17/2023 1:13 PM EST ? [facility] [place] ? [address] ?[place] [address] ? Mammography Report ? Signed ? Patient: Jeet,Sonia ?MR#: [id number] ?? 5 ? : 1955 ?Acct:[id number] ? Age/Sex: 67 / F ?ADM Date: 02/05/24 ? Loc: HO.MAMMO ? Attending Dr: Shawna Gamble MD ? Ordering Physician: Shawna Gamble ?Results: 1Negative ? Date of Service: 06/21/23 ?Follow Up: 1 Year From Orig ?? inal Mammogram ? Procedure(s): MM tomosynthesis screening BI ?? Accession Number(s): [id number] ? cc: Shawna Gamble ? EXAMINATION: ?? MM SCREENING DIGITAL BREAST TOMOSYNTHESIS, BILATERAL ? CLINICAL INFORMATION: ? Screening. Asymptomatic. ? COMPARISON: ?? Mammography: This study is compared with prior exams dating back to ?? 2018. ? TECHNIQUE: ?? Digital breast tomosynthesis is performed in both the craniocaudal and ?? mediolateral oblique views along with computer-aided detection (CAD). ?? Synthesized 2D images are generated from the tomosynthesis. ? FINDINGS: ?? There are scattered areas of fibroglandular density (ACR BI-RADS breast ?? composition Category b). ? There are no significant masses, abnormal calcifications, or other ?? abnormalities. ? MM/MM tomosynthesis screening BI ?? IMPRESSION: ?? No mammographic evidence of malignancy. ? ASSESSMENT: ? BI-RADS BI-RADS 1 - Negative ? RECOMMENDATION: ?? Routine annual mammography screening. ? 1 year F/U ? This examination should not preclude the clinical evaluation of a ?? suspicious palpable abnormality. ? This patient's information was entered into a reminder system with a ?? target due date for their next mammogram. ? Dictated By: ?Maribell Mcgill MD ? Signed By: ?<Electronically signed by Maribell Mcgill MD in OV> ? 07/17/23 1309 ? DD/ ? TD/TT: ? Bicycle Technician: ? Procedure Note Syeda, Image - 07/17/2023 [facility] [address] [place], [place] [address] Mammography Report Signed Patient: Sonia MarcanoMR#: [id number] 5 : 4Acct:[id number] Age/Sex: 67 / FADM Date: 06/21/23 Loc: HO.MAMMO Attending Dr: Shawna Gamble MD Ordering Physician: Tera Gambleults: 1Negative Date of Service: 06/21/23Follow Up: 1 Year From Orig inal Mammogram Procedure(s): MM tomosynthesis screening BI Accession Number(s): [id number] cc: Shawna Gamble EXAMINATION: MM SCREENING DIGITAL BREAST TOMOSYNTHESIS, BILATERAL CLINICAL INFORMATION: Screening. Asymptomatic. COMPARISON: Mammography: This study is compared with prior exams dating back to 2019. TECHNIQUE: Digital breast tomosynthesis is performed in both the craniocaudal and mediolateral oblique views along with computer-aided detection (CAD). Synthesized 2D images are generated from the tomosynthesis. FINDINGS: There are scattered areas of fibroglandular density (ACR BI-RADS breast composition Category b). There are no significant masses, abnormal calcifications, or other abnormalities. MM/MM tomosynthesis screening BI IMPRESSION: No mammographic evidence of malignancy. ASSESSMENT: BI-RADS BI-RADS 1 - Negative RECOMMENDATION: Routine annual mammography screening. 1 year F/U This examination should not preclude the clinical evaluation of a suspicious palpable abnormality. This patient's information was entered into a reminder system with a target due date for their next mammogram. Dictated By: Maribell Mcgill MD Signed By: <Electronically signed by Maribell Mcgill MD in OV> 07/17/23 1309 DD/ 1220 TD/TT: Bicycle Technician: us Shawna Gamble MD IMG BI PROCEDURES Edited Resul t - Final * Lipid Panel, Standard (03/15/2023 12:17 PM EDT) Triglycerides 105 <150 mg/dL [facility] Comment:Desirable Triglyceri de: less than 150 mg/dLBorderline High Triglyceride 150-199 mg/dLHigh Triglyceride: 200-499 mg/dLVery High Triglyceride: greater than or equal to 5OO mg/dL Cholesterol 128 <200 mg/dL [facility] Comment:Desirable Cholestero l: less than 200 mg/dLBorderline High Cholesterol: 200-239 mg/dLHigh Cholesterol: greater than 239 mg/dL LDL Cholesterol Calculated 60 <100 mg/dL [facility] Comment:Desirable LDL: less than 100 mg/dLNear Optimal/Above Optimal LDL: 110- 129 mg/dLBorderline High LDL: 130-159 mg/dLHigh LDL: 160-189 mg/dLVery High LDL: greater than or equal to 190 mg/dL HDL Cholesterol 47 >40 mg/dL [facility] Comment:Desirable HDL: great er than 40 mg/dL Note: This HDL assay may give artificially low results in patients with liver disease. Blood Venous blood specimen / Unknown 03/15/2023 12:17 PM EDT 03/15/2023 1:07 PM EDT Shawna Gamble MD LAB BLOOD ORDERABLES Final Res ult Performing Organization Address City/[facility] Co de Phone Number [facility] [address] [place], [place] [address] [phone] * (ABNORMAL) Albumin, Random Urine W/Creatinine (03/15/2023 12:11 PM EDT) Creatinine, Urine 108.28 mg/dL [facility] Microalbumin Urine 35.0 mg/L [facility] Microalbum Creatinine Ratio Ur 32.3(H) <30 ug/mg cr [facility] Comment:Albumin/Creatinine R atio Reference Ranges: Normal: < 30 ug/mg creatinine Microalbuminuria: 30 - 300 ug/mg creatinineClinical Albuminuria: > 300 ug/mg creatinine 03/15/2023 12:1 1 PM EDT 03/15/2023 1:08 PM EDT Shawna Gamble MD LAB URINE ORDERABLES Final Res ult Performing Organization Address City/State/[facility] Co de Phone Number [facility] [address] [place] [address] [phone] * Hepatitis C Ab (10/30/2022 9:18 AM EDT) Hepatitis C Antibody Nonreactive Nonreactive [facility] Comment:Antibodies to HCV no t detected; does not exclude early acuteHCV infection. 10/30/2022 9:18 AM EDT 10/30/2022 9:18 AM EDT [facility] External Provider LAB BLO OD ORDERABLES Final Result [facility] [address] [place] [address] [phone] * Hm Colonoscopy (10/11/2020 9:13 AM EDT) Historical Provider MD HEALTH MAINTENANCE Final Result from Last 3 Months or Most Recently Relevant to Health Maintenance Insurance [facility] - [facility] Care Teams Bar[employer] Scraper Relationship Specialty Start Date End Date Shawna Gamble MD [address] [place] [address] [place] [id number] PCP - General Family Medicine 05/13/22
--- OUTSIDE RECORDS SUMMARY | 2024-06-30 13:53 | XMS_ITS | Data Portability ---
Author Organization [facility] fsboWOW [facility], Main Office Address [address] , [address] [place] [address] Care Team Providers Care Wagon Winder Name Role Phone DELMIS HEARD 2ND FLOOR OTHER [phone] ROSIBEL SCHOFIELD Primary Care Provider Assessment No assessment recorded. Plan of Treatment Reminders Order Date Submit Date Provider Last Modified By Organization Details Last Modified Time Details Appointments None record ed. Lab None record ed. Referral None record ed. Procedures None record ed. Surgeries None record ed. Imaging None record ed. Medication Orders None record ed. Patient TargetsNo targets recorded. Patient Instructions Encounter Date Encounter Id Patient Instructions Last Modified By Organization Details Last Modified Time 08/01/[id number] Consider changin g APAP from 975 mg to 1 g po q 6 h scheduled -ok despite > recommended max 3 g/d Dispo - home with services when rehab goals are met, likely 7-10 days Total syb-fnww-ex-face time spent reviewing records today was 32 minutes/2 units. Not available 08/01/2022 19:41:07 Reason for Referral None Reported. Problems Name Problem SNOMED Code Status Onset Date Resolution Date Notes Provider Name and Address Organization Details Recorded Time Coronary arterioscle rosis 54780591 Active 2022 YOCASTA CHAMBERS PA-C [address], [address], [place], [address], [facility] [employer] 3 19:22:01 Essential hypertensio n 38206003 Active 2022 YOCASTA CHAMBERS PA-C [address], [address], [place], [address], [facility] [employer] 3 19:22:06 Dyslipidemi a 625466606 Active 2022 YOCASTA CHAMBERS PA-C [address], [address], [place], [address], [facility] 3 19:22:13 Type 2 diabetes mellitus with peripheral angiopathy 696515619 Active 2022 YOCASTA CHAMBERS PA-C [address], [address], [place], [address], [facility] [employer] [facility] 3 19:22:25 Peripheral neuropathy due to type 2 diabetes mellitus 7822399741482 Active 2022 YOCASTA CHAMBERS PA-C [address], [address], [place], [address], [facility] 3 19:22:33 Unintention al weight loss 184774100 Active 2022 YOCASTA CHAMBERS PA-C [address], [place], [address], [facility] 3 19:22:40 Orthostatic hypotension 85280693 Active 2022 YOCASTA CHAMBERS PA-C [address], [address], [place], [address], [facility] 3 19:23:00 Hyponatremi a 68471086 Active 2022 YOCASTA CHAMBERS PA-C [address], [address], [place], [address], [facility] 3 19:23:09 Anemia 025864137 Active 2022 YOCASTA CHAMBERS PA-C [address], [address], [place], [address], [facility] 3 19:23:18 Chronic constipatio n 137704877 Active 2022 YOCASTA CHAMBERS PA-C [address], [address], [place], [address], [facility] 3 19:23:25 Seasonal allergy 139562930 Active 2022 VINOD DAVISC [address], [address], [place], [address], [facility] 3 19:23:32 Stenosis of celiac artery 4354177701734 9101 Active 2022 YOCASTA CHAMBERS PA-C [address], [place], [address], [facility] 3 19:23:44 Abdominal pain 90253714 Active 2022 VINOD DAVISC [address], [place], [address], [facility] 3 19:24:04 Vitamin D deficiency 02060571 Active 2022 YOCASTA CHAMBERS PA-C [address], [place], [address], [facility] 3 19:24:12 Insomnia co-occurren t and due to medical condition 9407910554315 5 Active 2022 VINOD DAVISC [address], [address], [place], [address], [facility] 3 19:24:25 Hypomagnese arlen 554061493 Active 2022 YOCASTA CHAMBERS PA-C [address], [place], [address], [facility] 3 19:30:39 Intermitten t allergic asthma 6753278347618 9104 Active 2022 YOCASTA CHAMBERS PA-C [address], [place], [address], [facility] 3 19:31:17 Coronary artery bypass grafts x 4 Active 2022 YOCASTA CHAMBERS PA-C [address], [address], [place], [address], [facility] 3 19:31:29 Type 2 diabetes mellitus 12655087 Active 2022 Nicci Womack MD [address], [place], [address], [facility] 3 16:26:34 Asthenia 64693502 Active 2022 Nicci Womack MD [address], [address], [place], [address], [facility] [employer] 3 16:37:01 Problem Notes None recorded. Medical Equipment None Reported. Allergies Allergen ID Allergen Name Allergen Category Reaction Reaction Severity Criticality Documentation Date Start Date Code Code System Note Provider Name and Address Organization Details Recorded Time 72721 Bactrim medicatio n hives Not available Not available 08/01/2022 26295 9 RxNorm Not Available Not Available Not Available 27721 oxycodone medicatio n dyspnea itching Not available Not available Not available 08/01/2022 7804 RxNorm Not Available Not Available Not Available 88284 codeine medicatio n Not available Not available Not available 08/01/2022 2670 RxNorm amxie ty Not Available Not Available Not Available 07912 cortisone medicatio n itching Not available Not available 08/01/2022 2878 RxNorm Not Available Not Available Not Available 37157 doxycycli ne Not available itching Not available Not available 08/01/2022 3640 RxNorm Not Available Not Available Not Available 79539 morphine medicatio n itching Not available Not available 08/01/2022 7052 RxNorm Not Available Not Available Not Available 56539 Product containin g penicilli n and antibioti c (product) medicatio n rash Not available Not available 08/01/2022 33079 05 SNOMED Not Available Not Available Not Available 77170 tramadol medicatio n Not available Not available Not available 08/01/2022 65248 RxNorm anxie ty Not Available Not Available Not Available Vitals Date Recorded Body height Body mass index (BMI) Body weight Heart rate Respiratory rate Body temperature Oxygen saturation Oxygen saturation in Arterial blood by Pulse oximetry Systolic blood pressure Diastolic blood pressure Provider Name and Address Organization Details Last Updated DateTime 3 154.94 cm 25.5 kg/m2 34223.9 7 g 73 /min 17 /min 98.2 [degF] 100 % 100 % 146 mm[Hg] 59 mm[Hg] YOCASTA CHAMBERS PA-C [address] [facility], [address], [place], [address], [facility] [employer] 3 17:46:47 Date Recorded Body height Heart rate Respiratory rate Body temperature Oxygen saturation Oxygen saturation in Arterial blood by Pulse oximetry Systolic blood pressure Diastolic blood pressure Provider Name and Address Organization Details Last Updated DateTime 3 154.94 cm 82 /min 16 /min 98.1 [degF] 97 % 97 % 127 mm[Hg] 78 mm[Hg] RAYMUNDO KIRK NP [address] [facility], [facility] [address], [place], [address], [facility] 3 11:57:47 Date Recorded Body height Heart rate Respiratory rate Body temperature Oxygen saturation Oxygen saturation in Arterial blood by Pulse oximetry Systolic blood pressure Diastolic blood pressure Provider Name and Address Organization Details Last Updated DateTime 3 154.94 cm 80 /min 16 /min 98.4 [degF] 96 % 96 % 133 mm[Hg] 70 mm[Hg] RAYMUNDO KIRK NP [address] [place] [address], [place], [address], [employer] 3 14:33:50 Date Recorded Body height Body mass index (BMI) Body weight Heart rate Respiratory rate Body temperature Oxygen saturation Oxygen saturation in Arterial blood by Pulse oximetry Systolic blood pressure Diastolic blood pressure Provider Name and Address Organization Details Last Updated DateTime 3 154.94 cm 23.1 kg/m2 81952.2 7 g 84 /min 18 /min 97.9 [degF] 97 % 97 % 116 mm[Hg] 62 mm[Hg] Nicci Womack MD [address] [facility] [address], [place], [address], [employer] 3 16:02:43 Date Recorded Body height Heart rate Respiratory rate Body temperature Oxygen saturation Oxygen saturation in Arterial blood by Pulse oximetry Body mass index (BMI) Body weight Systolic blood pressure Diastolic blood pressure Provider Name and Address Organization Details Last Updated DateTime 3 154.94 cm 88 /min 16 /min 97.3 [degF] 98 % 98 % 22.7 kg/m2 61084.5 2 g 131 mm[Hg] 78 mm[Hg] RAYMUNDO KIRK NP [address] [place] [address] [address], [address], [employer] 3 12:42:06 Social History Question Answer Notes LastModified by Organizat ion Details LastModified Time Tobacco Smoking Status Never Smoker YOCASTA CHAMBERS PA-C [address] [facility], [address], [place], [address], [facility] [employer] 08/01/2022 19:32:55 Do You Have An Advance Directive? Yes [email or web address] Information not available 08/03/2022 What Is Your Level Of Alcohol Consumption? None [email or web address] Information not available 08/01/2022 What Is Your Code Status? Full Code [email or web address] Information not available 08/01/2022 Where Do You Live? [facility] Bedroom On 2nd Floor, Railing Only On Left Information not available 08/07/2022 Legal Guardian? 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 08/01/2022 Information not available 08/01/2022 Do You Have An Out Of Hospital DNR? No [email or web address] Information not available 08/01/2022 Do You Use Any Illicit Or Recreational Drugs? No [email or web address] Information not available 08/01/2022 Has Tobacco Cessation Counseling Been Provided? No N/A As Pt Is A Non-smoker Information not available 08/07/2022 Do You Or Have You Ever Used Any Other Forms Of Tobacco Or Nicotine? No Information not available 08/01/2022 Sex: Unknown Functional Status None recorded. Mental Status None recorded. Family History Relationship Description Onset Age of this Age Resolved Age Notes LastModified by Organization Details LastModified Time Father Coronary arterioscler osis 75 [email or web address] Not available 2022 19:18:27 Mother Coronary arterioscler osis 72 [email or web address] Not available 2022 19:18:27 Medical History No medical history recorded. Gynecological HistoryNo gynecological history recorded. Obstetrics History GPAL:G 0 P 0 0 0 0 Immunizations Vaccine Type Date Status Note Provider Nam e and Address Organization Details Recorded Time SARS-COV-2 (COVID-19) vaccine, UNSPECIFIED completed Selma dutta [facility] [employer] 07/31/2022 16:13:00 SARS-COV-2 (COVID-19) vaccine, UNSPECIFIED 1 completed Selma Hernandez [facility] 07/31/2022 16:13:09 Influenza, adjuvanted, quadrivalent, PF 2 completed Kandi dutta, [facility] 06/04/2023 13:05:32 Hep B, unspecified formulation 8 completed Selma Hernandez [facility] 07/21/2023 12:52:12 Tdap 8 completed Selma Hernandez [facility] 07/21/2023 12:52:31 Td(adult) unspecified formulation 5 completed Selma Hernandez [facility] 07/21/2023 12:52:50 Td(adult) unspecified formulation 0 completed Selma Hernandez [facility] 07/21/2023 12:52:59 Pneumococcal conjugate PCV 13 9 completed Selma Hernandez [facility] 07/21/2023 12:53:54 pneumococcal polysaccharide PPV23 2 completed Selma Hernandez [facility] 07/21/2023 12:54:22 pneumococcal polysaccharide PPV23 1 completed Selma Hernandez [facility] 07/21/2023 12:54:30 influenza, unspecified formulation 3 completed Selma Hernandez [facility] 07/21/2023 12:54:54 zoster, unspecified formulation 6 completed Selma Hernandez [facility] 07/21/2023 12:55:18 zoster, unspecified formulation 0 completed Selma Hernandez [facility] 07/21/2023 12:55:31 Past Encounters Encounter ID Performer Location Encounter Start Date Encounter Closed Date Diagnosis/Indication Diagnosis SNOMED-CT Code Diagnosis ICD10 Code Diagnosis Note [id number] JEREMI DAVIS [address] [place] [address] [place] [address] 08/01/2022 17:43:19 08/04/2022 08:34:27 Coronary arteriosclerosis 50434033 I25.10 now s/p 4-vessel CABGASA, BB, statin, PlavixMoni tor surgical incision sites - presently no evidence of infectionP t HAS CT surg f/u with Dr. Andre Pierre 08/10/22 at [facility] (listed as being at 0130 so either it's supposed to be 1130 or 1330 - need to clarify appointmen t time) [phone] 50Pt NEEDS cards f/u with Dr. Estuardo Rodríguez in 2-4 weeks [phone] 84Pt needs f/u cardiac rehab at [facility] after d/c - [phone] [id number] tive spirometer at bedside Abdominal pain 09010177 R10.9 postprandi alHas meds in placeattri buted to celiac artery stenosis but does NOT have mesenteric artery stenosis Essential hypertension 46042371 I10 Monitor BPs and adjust meds prn Dyslipidemia 949746528 E 78.5 statin Peripheral neuropathy due to type 2 diabetes mellitus 3968163887 107 E11.42 monitor sugars and adjust meds prnOff MADY for renal protection - was d/c'd during antecedent hospitaliz ationTight glycemic control necessary to promote wound healingon duloxetine with prn wayne Intermitte nt allergic asthma 2686184331 7994608 J45.20 prn Albuterol- consider adding spacer to maximize med delivery Insomnia c o-occurrent and due to medical condition 7451662474 9105 G47.01 Trazodonef /u prn Hypomagnesemia 867492254 E83.42 supplement d/c'd PTAupdate level with next lab draw Chronic constipation 236 211645 K59.09 scheduled and prn bowel meds Anemia 845054848 D64.9 acute-on-c hronic post-opdoe s not appear she required a transfusio nmonitor CBC Seasonal allergy 2485389 04 J30.2 Claritin (weakest in that class - consider Maricel if needs something stronger) Stenosis o f celiac artery 0916708070 7998437 I77.4 seen by vascular surg-f/u prn Unintentio nal weight loss 656379938 R63.4 RD consultMon itor weights Vitamin D deficiency 347 59821 E55.9 repletingo utpatient f/u with PCP Hyponatremia 72243007 E8 7.1 had w/u prior to admitfollo w divalents Orthostati c hypotension 03634654 I95.1 BB decreasedf /u prn At moderat e risk for fall 5257781543 79357561 Z91.89 PT/OT [id number] JEREMIAH MCINTOSH ORQUIDEA [address] [facility] [place] [address] 08/03/2022 11:47:26 08/05/2022 17:19:50 Coronary arteriosclerosis 32525650 I25.10 now s/p 4-vessel CABGmetopr olol er 12.5 mg dailyasa 81 mg dailyatorv astatin 80 mg dailyplavi x 75 mg dailytylen ol 975 mg [id number] r surgical incision sites - presently no evidence of infectionP t HAS CT surg f/u with Dr. Andre Pierre 08/10/22 at [facility] (listed as being at 0130 so either it's supposed to be 1130 or 1330 - need to clarify appointmen t time) [phone] 50Pt NEEDS cards f/u with Dr. Estuardo Rodríguez in 2-4 weeks [phone] 84Pt needs f/u cardiac rehab at [facility] after d/c - [phone] [id number] tive spirometer at bedside Essential hypertension 97432367 I10 Monitor BPs and adjust meds prn Dyslipidemia 223581654 E 78.5 atorvastat in 80 mg daily Peripheral neuropathy due to type 2 diabetes mellitus 7049011310 107 E11.42 monitor sugars and adjust meds prnOff MADY for renal protection - was d/c'd during antecedent hospitaliz ationTight glycemic control necessary to promote wound healingdul oxatine 20 mg dailygabap entin 600 mg q6hr prn Intermitte nt allergic asthma 6419365034 4694803 J45.20 prn Albuterol- consider adding spacer to maximize med delivery Insomnia c o-occurrent and due to medical condition 8555725272 9105 G47.01 Trazodone 100 mg hsf/u prn Hypomagnesemia 820317517 E83.42 supplement d/c'd PTAupdate level with next lab draw Chronic constipation 236 162172 K59.09 senna 17.2 hscolace dailyprn bowel meds Anemia 077264930 D64.9 acute-on-c hronic post-opdoe s not appear she required a transfusio nmonitor CBC Seasonal allergy 7919202 04 J30.2 Claritin 10- mg prn Stenosis o f celiac artery 5933029337 1616932 I77.4 seen by vascular surg-f/u prn Unintentio nal weight loss 783754844 R63.4 RD consultMon itor weights Vitamin D deficiency 347 19145 E55.9 D3 1000 twice weeklyoutp atient f/u with PCP Hyponatremia 35660203 E8 7.1 had w/u prior to admitfollo w divalents Orthostati c hypotension 92650516 I95.1 BB decreasedf /u prn At moderat e risk for fall 1830361434 34562299 Z91.89 PT/OT Type 2 lou betes mellitus with peripheral angiopathy 794917880 E11.51 metformin 1000 mg bidlispro sliding scale bidpoc glucose bid [id number] JEREMIAH MCINTOSH [address] [place] [address] 08/05/2022 14:11:45 08/10/2022 14:23:48 Coronary arteriosclerosis 99633312 I25.10 now s/p 4-vessel CABGmetopr olol er 12.5 mg dailyasa 81 mg dailyatorv astatin 80 mg dailyplavi x 75 mg dailytylen ol 975 mg [id number] r surgical incision sites - presently no evidence of infectionP t HAS CT surg f/u with Dr. Andre Pierre 08/10/22 at [facility] (listed as being at 0130 so either it's supposed to be 1130 or 1330 - need to clarify appointmen t time) [phone] 50Pt NEEDS cards f/u with Dr. Estuardo Rodríguez in 2-4 weeks [phone] 84Pt needs f/u cardiac rehab at [facility] after d/c - [id number] tive spirometer at bedside Peripheral neuropathy due to type 2 diabetes mellitus 9273053749 107 E11.42 monitor sugars and adjust meds prnOff MADY for renal protection - was d/c'd during antecedent hospitaliz ationTight glycemic control necessary to promote wound healingdul oxatine 20 mg dailygabap entin 600 mg q6hr prn [id number] MD DELMIS Castrejon [address] [place] [address] 08/07/2022 15:12:17 08/10/2022 14:43:19 Coronary arteriosclerosis 93471848 I25.10 S/P CABG x4, recovering well.Incis ions clean and dry and almost back to baseline function.C ontinue metoprolol ER 12.5 mg qd, ASA 81 mg qd, atorvastat in 80 mg qd, and plavix 75 mg qd (for 1 yr).Contin ue APAP 975 mg q 6 hrs scheduled for incisional pain.Salma nue I beau.F/U with Dr. Andre Pierre, [place] surgery, 08/10/ at 1:30 PM, [phone] 50Pt needs cards f/u with Dr. Estuardo Rodríguez in 2-4 weeks [phone] 84Pt needs f/u cardiac rehab at [facility] after d/c - x [phone] Essential hypertension 10836971 I10 Remains in good control on only metoprolol 12.5 mg.Isosorb kiet, lisinopril , and HCTZ were d/c'd inpt due to low BPs.Monito r BPs and adjust meds prn. Dyslipidemia 364754039 E 78.49 Continue atorvastat in 80 mg qd.Monitor labs as outpt. Intermitte nt allergic asthma 4920567183 2458095 J45.20 No current sxs.Contin ue albuterol 2 puffs q 6 hrs prn.Monito r resp. status. Insomnia c o-occurrent and due to medical condition 8040399333 9105 G47.01 Continue trazodone 100 mg qhsMonitor sleep patterns. Chronic constipation 236 431836 K59.09 Continue bowel meds as ordered.Mo nitor bowel function. Anemia 611751506 D64.89 Acute on chronic, from surgical blood loss.Remai toya stableMoni tor labs.Trans fuse for hgb <7 Seasonal allergy 5156699 04 J30.2 Continue loratadine 10 mg qd prnMonitor sxs. Stenosis o f celiac artery 2758686192 3776628 I77.4 F/U with vascular surg as planned Unintentio nal weight loss 755111348 R63.4 Reportedly lost 100# without trying.But remaining stable at this timeDietic nain consultMon itor weights Vitamin D deficiency 347 30939 E56.8 Continue D3 1000 IU twice weeklyMoni tor levels as outpt. Hyponatremia 30833238 E8 7.1 Resolved inpt.Monit or labs Type 2 lou betes mellitus 33999300 E11.21 Home sugars much improved since wt. loss.Now only on metformin 1000 mg BID.Was managed with insulin immediatel y post op, but no longer needing.Co ntinue duloxetine 20 mg qd, topiramate 50 mg qd, and gabapentin 600 mg q 6 hrs prn for neuropathy .BS not being checked since here, will start fingerstic ks BID as she does at home, fasting and pre-supper . Use SSI prn. Asthenia 51721227 R53.1 Was deconditio giovanni, but much improved.C ontinue PT/OT for strengthen ing, balance, gait training, safety and function.C ontinue fall precaution s.Monitor for safety.Helga n for d/c 08/11 Abdominal pain 22342537 R10.816 R11.0 Having trouble eating due to nausea and abd. pain.Will schedule carafate QID (AC and qhs) and Zofran 4 mg TID.Contin ue omeprazole 40 mg qd.Monitor sxs.Though t to possibly be mesenteric ischemia. [id number] JEREMIAH MCINTOSH [address] [place] [address] 08/10/2022 12:41:32 08/12/2022 14:50:55 Coronary arteriosclerosis 25706733 I25.10 now s/p 4-vessel CABGmetopr olol er 12.5 mg dailyasa 81 mg dailyatorv astatin 80 mg dailyplavi x 75 mg dailytylen ol 975 mg d5eeDlzdzn r surgical incision sites - presently no evidence of infectionP t HAS CT surg f/u with Dr. Andre Pierre 08/10/22 at [facility] (listed as being at 0130 so either it's supposed to be 1130 or 1330 - need to clarify appointmen t time) [phone] 50Pt NEEDS cards f/u with Dr. Estuardo Rodríguez in 2-4 weeks [phone] 84Pt needs f/u cardiac rehab at [facility] after d/c - [id number] tive spirometer at bedside Essential hypertension 82564085 I10 Monitor BPs and adjust meds prn Dyslipidemia 515598311 E 78.5 atorvastat in 80 mg daily Peripheral neuropathy due to type 2 diabetes mellitus 5060000485 107 E11.42 monitor sugars and adjust meds prnOff MADY for renal protection - was d/c'd during antecedent hospitaliz ationTight glycemic control necessary to promote wound healingdul oxatine 20 mg dailygabap entin 600 mg q6hr prn Intermitte nt allergic asthma 3421020025 7537669 J45.20 prn Albuterol- consider adding spacer to maximize med delivery Insomnia c o-occurrent and due to medical condition 1727160173 9105 G47.01 Trazodone 100 mg hsf/u prn Hypomagnesemia 400906631 E83.42 supplement d/c'd PTAupdate level with next lab draw Chronic constipation 236 134068 K59.09 senna 17.2 hscolace dailyprn bowel meds Anemia 714573694 D64.9 acute-on-c hronic post-opdoe s not appear she required a transfusio nmonitor CBC Seasonal allergy 7355151 04 J30.2 Claritin 10- mg prn Stenosis o f celiac artery 7164174902 2455483 I77.4 seen by vascular surg-f/u prn Unintentio nal weight loss 112594939 R63.4 RD consultMon itor weights Vitamin D deficiency 347 65323 E55.9 D3 1000 twice weeklyoutp atient f/u with PCP Hyponatremia 18791421 E8 7.1 had w/u prior to admitfollo w divalents Orthostati c hypotension 72249511 I95.1 BB decreasedf /u prn At moderat e risk for fall 1033911298 41007889 Z91.89 PT/OT Type 2 lou betes mellitus with peripheral angiopathy 933907298 E11.51 metformin 1000 mg bidlispro sliding scale bidpoc glucose bid Health Concerns Section Related Observation LastModified by Organization Detai ls LastModified Time None Recorded Concern Status LastModified by Organization Details LastModified Time None Recorded Advance Directives Directive Y: Payers Encounter Date Sequence Insurance Name Policy Number Policy Swartz Covered Member ID Swartz Member ID Guarantor Name 08/01/2022 1 [employer] - DOS PRIOR TO 2022 - DUAL ELIGIBLE (MEDICARE REPLACEMENT/ADV ANTAGE - HMO) Sonia Marcano [id number] Sonia Marcano 08/03/2022 1 [employer] - DOS PRIOR TO 2022 - DUAL ELIGIBLE (MEDICARE REPLACEMENT/ADV ANTAGE - HMO) Sonia Marcano [id number] Sonia Marcano 08/05/2022 1 [employer] C[facility] - DOS PRIOR TO 2022 - DUAL ELIGIBLE (MEDICARE REPLACEMENT/ADV ANTAGE - HMO) Sonia Marcano [id number] Sonia Marcano 08/07/2022 1 [employer] - DOS PRIOR TO 2022 - DUAL ELIGIBLE (MEDICARE REPLACEMENT/ADV ANTAGE - HMO) Sonia Marcano [id number] Sonia Marcano 08/10/2022 1 [employer] - DOS PRIOR TO 2022 - DUAL ELIGIBLE (MEDICARE REPLACEMENT/ADV ANTAGE - HMO) Sonia Marcano [id number] Sonia Marcano Notes Date Note Type Note Provider Name and Address Organization Details Recorded Time 3 text/html Pt seen today for initial review.Seen with Sp-speaking staff 66-y/o F admitted from [facility] where she was hospitalized 07/20-07/31/22 for CAD s/p elective 4-vessel CABG. No significant post-op issues. Followed by endo for her DM while in the hospital. Meds adjusted as outlined below. Here for subacute rehab with plan to return home. PMHx: CAD s/p 4-vessel CABG 07/3022; STEMI s/p RCA stent 2007; HTN; Dyslipidemia; DM2 with PVD and neuropathy; Wt loss; L carotid stenosis (15-50%); ; Hx cholecystectomy; Orthostatic hypotension; Hyponatremia; Anemia; Chronic constipation; Seasonal allergies; Celiac artery stenosis; Postprandial abdominal pain; Bilateral carpal tunnel release; Vit D def; Insomnia; Shear injury R buttocks; Hypomagnesemia; Mild-intermittent allergic asthma Healthcare Maintenance: subacute rehab pt PPI use: on since [employer] Meds:APAP 975 mg po q 6 h (new)Plavix 75 mg po daily (new)Vashe topical solution 475 ml q 12 h (new)Toprol XL 12.5 mg po daily (decreased)ProAir prnASA 81 mg po dailyLipitor 80 mg po qhsVit D3 1000 ux po twice weeklyColace 100 mg po qhsCymbalta 20 mg po q amGabapentin 600 mg po qid prn mod-severe painClaritin 10 mg po daily prn congestionMetformin 1000 mg po bidPrilosec 40 mg po q amSenna 2 po qhsCarafate 1 g po bid prn dyspepsiaTopamax ER 50 mg po q amTrazodone 100 mg po qhs(Elavil 25 mg po qhs d/c'd)(Hydrodiuril 25 mg po daily d/c'd)(Hydroxyzine 25 mg po qid prn anxiety d/c'd)(Isordil 30 mg po bid d/c'd)(Lisinopril 40 mg po daily d/c'd)(Mag oxide 400 mg po daily d/c'd)(Zofran 4 mg po q 8 h prn N/V d/c'd) ROS: Chest wall pain from sternotomy but no resting CP, f/c/s, dyspnea. No AVILES/PND/orthopnea. No abd presently but has not eaten yet. No N/V/D. YOCASTA CHAMBERS PA-C [address] [facility], [address], [place], [address], [facility] [employer] 08/01/2022 19:49:54 3 text/html seen today for acute rounding visit-66-y/o F admitted from [facility] where she was hospitalized 07/20-07/31/22 for CAD s/p elective 4-vessel CABG. No significant post-op issues. Followed by endo for her DM while in the hospital. Meds adjusted as outlined below. Here for subacute rehab with plan to return home. CAOx3 resting in bed, she is complaining of chest discomfort where the incision line is at mid sternum, weak cough, reminded her to use the pillow for splinting during cough, lungs clear, chest incision healing well, bilateral incisions on medial knee area clean dry healing well, yonis intact RAYMUNDO KIRK, AGRICULTURAL EQUIPMENT SALES ENGINEER [address] [facility], [address], [place], [address], [facility] 08/03/2022 15:37:40 3 text/html seen today for acute rounding visit, CAOx3 sitting up in bed, lungs clear, chest incision healing well, medial knee incisions healing well no s/s infection yonis intact RAYMUNDO KIRK, AGRICULTURAL EQUIPMENT SALES ENGINEER [address] [facility], [address], [place], [address], [facility] 08/05/2022 14:36:03 3 text/html This is a 66 yo woman who is here for rehab after a CABG x 4 on 07/20. She had been having atypical CP for several months and it had been worsening; stress test showed reversible ischemic defects; cardiac catheterization revealed 75% LAD, 55-60% Diag, OM1 70%, OM2 70%, PLV 60%, PDA 75% diffusely diseased small vessel. She was s/p STEMI with RCA stent in 2007. During surgery she developed Afib and got a bolus of amiodarone, reverted to NSR and was kept on amiodarone for Afib prophylaxis, but developed SE and it was stopped. Had stress hyperglycemia and BIDs was consulted. She was on an insulin drip post-op and transitioned to lantus with SSI, then put back on home metformin for d/c. HgA1C was 6.3. Isosorbide, lisinopril, and HCTZ were held due to low BPs, to be reevaluated at cardio f/u. Transferred here on 07/31.Since here she has been doing well with rehab and has a projected d/c date of 08/11.Her PMH includes HTN, HLD, AODM with neuropathy, approximately 100 lb unintentional weight loss in past 2 years, carotid stenosis, CAD s/p STEMI with stent to prox RCA in 2007 and CABG x4 in 07/2022, s/p cholecystectomy, anemia, and seasonal allergies/allergic asthma. Nicci Womack MD [address] [facility], [address], [place], [address], [facility] [employer] 08/07/2022 18:29:32 3 text/html seen today for discharge summary- 66 yo woman who is here for rehab after a CABG x 4 on 07/20. She had been having atypical CP for several months and it had been worsening; stress test showed reversible ischemic defects; cardiac catheterization revealed 75% LAD, 55-60% Diag, OM1 70%, OM2 70%, PLV 60%, PDA 75% diffusely diseased small vessel. She was s/p STEMI with RCA stent in 2007. During surgery she developed Afib and got a bolus of amiodarone, reverted to NSR and was kept on amiodarone for Afib prophylaxis, but developed SE and it was stopped. Had stress hyperglycemia and BIDs was consulted. She was on an insulin drip post-op and transitioned to lantus with SSI, then put back on home metformin for d/c. HgA1C was 6.3. Isosorbide, lisinopril, and HCTZ were held due to low BPs, to be reevaluated at cardio f/u. Transferred here on 07/31.Since here she has been doing well with rehab and has a projected d/c date of 08/11. CAOx3 ambulating with a walker and supervision, gait steady slow, lungs clear, all incisions healed well, she continues to have yonis in her legs, nurisng to contact cardiology when they are to be removed RAYMUNDO KIRK NP [address] [facility], [address], [place], [address], [facility] 08/10/2022 12:46:34 OBGyn Episode No OBEpisode recorded.
--- OUTSIDE RECORDS SUMMARY | 2024-06-30 13:53 | XMS_ITS | Encounter Summary ---
Author Organization [facility] Address [address] [place] [address] [address] [place] [address] Care Team Providers Care Medical Billing Assistant Name Role Phone Shawna Gamble MD Primary Care Provider [phone] Encounter Details Date Type Department Care Team (Late st Contact Info) Description 07/13/2022 Abstract [facility] ADULT DENTAL [address] [place] [address] Uriel Jacobs DDS [address] [place] [address] Social History Tobacco Use Types Packs/Day Years Used Date Smoking Tobacco: Never Smokeless Tobacco: Never Depression Answer Date Recorded Patient Health Questionnaire-2 [...] suspected to have Coronavirus/COVID-19? No / Unsure 06/18/2022 7:57 AM EST documented as of this encounter Plan of Treatment Not on file documented as of this encounter Visit Diagnoses Not on filedocumented in this encounter Care Teams Medical Billing Assistant Relationship Specialty Start Date End Date Shawna Gamble MD [address] [place] [address] PCP - General Family Medicine 05/13/22 documented as of this encounter
--- OUTSIDE RECORDS SUMMARY | 2024-06-30 13:53 | XMS_ITS | Encounter Summary ---
Author Organization [employer] Address [address] [place] [address] [address] [place] [address] Care Team Providers Care Haunted History Tour Guide Name Role Phone Shawna Gamble MD Primary Care Provider [phone] Reason for Visit * Reason Onset Date Comments Durable Medical Equipment 07/03/2022 Encounter Details Date Type Department Care Team ([facility] st Contact Info) Description 07/03/2022 Telephone [facility] MEDICINE [address] [place] [address] Shawna Gamble MD [address] [place] [address] Durable Medical Equipment Social History Tobacco Use Types Packs/Day Years [...] AM EST documented as of this encounter Miscellaneous Notes * Telephone Encounter - Edelmira Lopez - 07/15/2022 2:22 PM EST Form received from [employer] for bed pads for signature * Telephone Encounter - Jim Mishraos - 07/03/2022 3:11 PM EST Tc from pt requesting a script for re washable bed pads needs script to be send over to med[facility]. Ptalso states needs a letter on why pt is needing re washable bed pads. documented in this encounter Plan of Treatment Not on file documented as of this encounter Visit Diagnoses Not on filedocumented in this encounter Care Teams Haunted History Tour Guide Relationship Specialty Start Date End Date Shawna Gamble MD [address] [place] [id number] PCP - General Family Medicine 05/13/22 documented as of this encounter
--- OUTSIDE RECORDS SUMMARY | 2024-06-30 13:53 | XMS_ITS | Encounter Summary ---
Author Organization [employer] Address [address] [place] [address] [address] [place] [address] Care Team Providers Care Long Winder Tender Name Role Phone Makenna Trinidad MD Primary Care Provider Shawna Hand MD Primary Care Provider Encounter Details Date Type Department Care Team (Late st Contact Info) Description 04/20/2022 Abstract [facility] ADULT DENTAL [address] [place] [address] Dental, Provider, DDS Social History Tobacco Use [...] Procedure Name Priority Date/Time Associated Diagnosis Comments 29 B(V) COMPOSITE FILLING Routine 04/20/2022 12:00 AM EST 20 O AMALGAM FILLING Routine 04/20/2022 12:00 AM EST 18 O AMALGAM FILLING Routine 04/20/2022 12:00 AM EST 17 EXTRACTION Routine 04/20/2022 12:00 AM EST 19 EXTRACTION Routine 04/20/2022 12:00 AM EST 30 EXTRACTION Routine 04/20/2022 12:00 AM EST 31 EXTRACTION Routine 04/20/2022 12:00 AM EST 32 EXTRACTION Routine 04/20/2022 12:00 AM EST 16 EXTRACTION Routine 04/20/2022 12:00 AM EST 15 EXTRACTION Routine 04/20/2022 12:00 AM EST 14 EXTRACTION Routine 04/20/2022 12:00 AM EST 13 EXTRACTION Routine 04/20/2022 12:00 AM EST 12 EXTRACTION Routine 04/20/2022 12:00 AM EST 5 EXTRACTION Routine 04/20/2022 12:00 AM EST 4 EXTRACTION Routine 04/20/2022 12:00 AM EST 3 EXTRACTION Routine 04/20/2022 12:00 AM EST 2 EXTRACTION Routine 04/20/2022 12:00 AM EST 1 EXTRACTION Routine 04/20/2022 12:00 AM EST documented in this encounter Visit Diagnoses Not on filedocumented in this encounter Care Teams Long Winder Tender Relationship Specialty Start Date End Date Makenna Trinidad MD PCP - General Family Medicine 03/24/19 05/12/22 Shawna Gamble MD [address] [place] [id number] PCP - General Family Medicine 05/13/22 documented as of this encounter
--- OUTSIDE RECORDS SUMMARY | 2024-06-30 13:53 | XMS_ITS | Clinical Summary ---
Author Organization [facility] Address [address] [place] [address] Care Team Providers Care Yard Hand Name Role Phone Unavailable Primary Care Provider Unavailabl e Social History Tobacco Use Types Packs/Day Years Used Date Smoking Tobacco: Never Assessed Sex and Gender Information Value Date Recorded Sex Assigned at Not on file Gender Identity Not on file Sexual Orientation Not on file Plan of Treatment Health Maintenance Due Date Last Done Comments Hepatitis C Virus Screening 1955 DTaP/Tdap/Td Vaccines (1 - Tdap) 1972 Pneumococcal Vaccines 50+ (1 of 1 - PCV) 09/06/2003 Zoster (Shingles) Vaccine (1 of 2) 09/06/2003 COVID-19 Vaccine ( - 2023-2 5 season) 2024 RSV Vaccine 60 years and old er and Patients (1 - 1-dose 75+ series) 2028 Hepatitis B Vaccines Aged Out No long er eligible based on patient's age to complete this topic
--- OUTSIDE RECORDS SUMMARY | 2024-06-30 13:53 | XMS_ITS ---
Author Organization [facility] Address Unknown Allergies, Adverse Reactions, Alerts Substance Reaction Status Noted Date Resolved Date traMADol active 07/31/2022 Sulfa Antibiotics active 07/31/2022 Penicillin active 07/31/2022 oxyCODONE active 07/31/2022 Morphine active 07/31/2022 Doxycycline active 07/31/2022 Cortisone active 07/31/2022 Codeine active 07/31/2022 Bactrim active 07/31/2022 Acetaminophen active 07/31/2022 Problems Problem Status Start Date End Date MUSCLE WASTING AND ATROPHY, NOT ELSEWHERE CLASSIFIED, RIGHT UPPER ARM (Primary) (M62.521 - ICD-10-CM) ACTIVE 07/31/2022 ENCOUNTER FOR SURGICAL AFTER CARE FOLLOWING SURGERY ON THE CIRCULATORY SYSTEM (Z48.812 - ICD-10-CM) ACTIVE 07/31/2022 MUSCLE WASTING AND ATROPHY, NOT ELSEWHERE CLASSIFIED, LEFT UPPER ARM (M62.522 - ICD-10-CM) ACTIVE 07/31/2022 OTHER LACK OF COORDINATION (R27.8 - ICD-10-CM) ACTIVE 08/04/2022 Encounters Encounter Performer Performer Role Encounter Diagnoses Location Date Discharge - Discharged to home or self care - [facility] - Private home/apt. with home health services [facility] 3 03:12 pm EDT - 3 11:30 am EDT Immunizations Vaccine Date Influenza 03/04/2022 12:00 am EDT Hepatitis B 04/27/2018 12:00 am EST PCV13 (Pneumococcal Conjugate)Vaccine 12:00 am EST PPSV23 (Previous Pneumococcal Polysaccha ride)Vaccine 04/02/2021 12:00 am EST PPSV23 (Previous Pneumococcal Polysaccha ride)Vaccine 03/02/2002 12:00 am EDT Tdap (Tetanus, Diphtheria, Pertussis) 12:00 am EST SARS-COV-2 (COVID-19) 03/11/2021 12:00 a m EDT SARS-COV-2 (COVID-19) 02/04/2021 12:00 a m EDT Social History
--- OUTSIDE RECORDS SUMMARY | 2024-06-30 13:53 | XMS_ITS | Encounter Summary ---
Author Organization [employer] Address [address] [place] [address] [address] [place] [address] Care Team Providers Care Weigher And Crusher Name Role Phone Shawna Gamble MD Primary Care Provider Encounter Details Date Type Department Care Team (Late st Contact Info) Description 07/10/2022 Orders Only [facility] MEDICINE [address] [place], [place] [phone] Shawna Gamble MD [address] [place], [place] [phone] Hypomagnesemia (Primary Dx) Social History Tobacco Use Types [...] as of this encounter Miscellaneous Notes * Result Encounter Note - Shawna Gamble MD - 07/10/2022 1:22 PM EST Please let pt know her magnesium if back up to normal range at 1.5, she should continue daily Magnesium supplementation at 400mg daily. Does she need new prescription? documented in this encounter Plan of Treatment Not on file documented as of this encounter Procedures Procedure Name Priority Date/Time Associated Diagnosis Comments MAGNESIUM Routine 12/17/2022 1:12 PM EDT Hypomagnesemia BASIC METABOLIC PANEL Routine 12/17/2022 1:12 PM EDT Hypomagnesemia VITAMIN D,25-OH,TOTAL,IA Routine 12/09/2022 12:14 PM EDT Hypomagnesemia PHOSPHATE ( PHOSPHORUS) Routine 12/09/2022 12:14 PM EDT Hypomagnesemia MAGNESIUM Routine 12/09/2022 12:14 PM EDT Hypomagnesemia BASIC METABOLIC PANEL Routine 12/09/2022 12:14 PM EDT Hypomagnesemia CBC WITH AUTO DIFFERENTIAL Routine 11/30/2022 4:06 PM EDT Hypomagnesemia TSH Routine 11/30/2022 4:06 PM EDT Hypomagnesemia MAGNESIUM Routine 11/30/2022 4:06 PM EDT Hypomagnesemia HEPATITIS C ANTIBODY Routine 10/30/2022 9:18 AM EDT Hypomagnesemia HIV ANTIBODY/ANTIGEN ([place] DPH) Routine 10/30/2022 9:18 AM EDT Hypomagnesemia VITAMIN B12/FOLATE, SERUM PANEL Routine 10/30/2022 9:18 AM EDT Hypomagnesemia T-SPOT(R).TB Routine 10/30/2022 9:18 AM EDT Hypomagnesemia HEPATITIS B SURFACE ANTIGEN, EIA Routine 10/30/2022 9:18 AM EDT Hypomagnesemia HEPATITIS B CORE AB TOTAL Routine 10/30/2022 9:18 AM EDT Hypomagnesemia HEPATITIS B SURFACE ANTIBODY, QUALITATIVE Routine 10/30/2022 9:18 AM EDT Hypomagnesemia PREALBUMIN Routine 10/30/2022 9:18 AM EDT Hypomagnesemia COMPREHENSIVE METABOLIC PANEL Routine 10/30/2022 9:18 AM EDT Hypomagnesemia CBC WITH AUTO DIFFERENTIAL Routine 08/31/2022 7:32 AM EDT Hypomagnesemia IRON AND TOTAL IRON BINDING CAPACITY Routine 08/31/2022 7:32 AM EDT Hypomagnesemia B TYPE NATRIURETIC PEPTIDE (BNP) Routine 08/31/2022 7:32 AM EDT Hypomagnesemia LIPASE Routine 08/31/2022 7:32 AM EDT Hypomagnesemia HEMOGLOBIN A1C Routine 08/31/2022 7:32 AM EDT Hypomagnesemia FERRITIN Routine 08/31/2022 7:32 AM EDT Hypomagnesemia HEPATIC FUNCTION PANEL Routine 7:32 AM EDT Hypomagnesemia BASIC METABOLIC PANEL Routine 08/31/2022 7:32 AM EDT Hypomagnesemia CBC WITH AUTO DIFFERENTIAL Routine 08/10/2022 4:55 AM EDT Hypomagnesemia BASIC METABOLIC PANEL Routine 08/10/2022 4:55 AM EDT Hypomagnesemia CBC WITH AUTO DIFFERENTIAL Routine 08/03/2022 5:00 AM EDT Hypomagnesemia COMPREHENSIVE METABOLIC PANEL Routine 08/03/2022 5:00 AM EDT Hypomagnesemia MAGNESIUM Routine 07/13/2022 8:29 AM EST Hypomagnesemia documented in this encounter Results * Magnesium (12/17/2022 1:12 PM EDT) Magnesium 1.6 1.6 - 2.6 mg/dL [facility] 12/17/2022 1:12 PM EDT 12/17/2022 1:20 PM EDT us Generic External Data Provider LAB BLOOD ORDERAB LES Final Result [facility] [address] [place] [phone] * (ABNORMAL) Basic Metabolic Panel (12/17/2022 1:12 PM EDT) Sodium 138 135 - 145 mmol/L [facility] Potassium 3.6 3.3 - 5.1 mmol/L [facility] Chloride 101 96 - 108 mmol/L [facility] Carbon Dioxide 24 22 - 29 mmol/L [facility] Anion Gap 17 12 - 20 [facility] Urea Nitrogen (BUN) 12 9 - 16 mg/dL [facility] Creatinine, Serum 0.75 0.5 - 1.4 mg/dL [facility] Estimated Glomerular Filt Rate >60 [facility] Comment:NOTE: For -Am erican individuals, multiply the result by 1.210.Chronic Kidney Disease: Estimated GFR < 60 mL/min/1.21h7Gzvemc Kidney Disease: Estimated GFR < 15 mL/min/1.73m2 Glucose 118(H) 60 - 115 mg/dL [facility] Calcium 10.2 8.4 - 10.2 mg/dL [facility] 12/17/2022 1:12 PM EDT 12/17/2022 1:20 PM EDT [facility] External Provider LAB BLO OD ORDERABLES Final Result Performing Organization Address [facility]/ZIP Co de Phone Number [facility] [address] [place] [address] [phone] * Vitamin D, 25-Hydroxy, Total, Immunoassay (12/09/2022 12:14 PM EDT) Vitamin D 25-OH Total 57.1 >30 ng/mL [facility] Comment:Health Based Referen ce Values*< 20 ng/mL Xmfoeeqfu42-48 ng/mL Insufficient> 30 ng/mL Sufficient*oNrma TREVINO. N Engl J Med. 2007;357:266-280Care must be taken in interpreting Vitamin D results fromdifferent laboratories and methodologies. Published datademonstrated that results from patients undergoinghemodialysis may show a negative bias when tested withvarious automated 25-OH vitamin D assays when compared toLC-MS/MS.When testing samples from patients whose predominant form ofVitamin D is Vitamin D2, such as patients receiving VitaminD2 supplementation, results that are subtherapeutic shouldbe confirmed with another method such as LC-MS/MS. 12/09/2022 12:1 4 PM EDT 12/09/2022 12:14 PM EDT Generic External Data Provider LAB BLOOD ORDERAB LES Final Result Performing Organization Address [facility]/ZIP Co de Phone Number [facility] [address] [place] [phone] * (ABNORMAL) Magnesium (12/09/2022 12:14 PM EDT) Magnesium 1.5(L) 1.6 - 2.6 mg/dL [facility] 12/09/2022 12:1 4 PM EDT 12/09/2022 12:14 PM EDT Generic External Data Provider LAB BLOOD ORDERAB LES Final Result Performing Organization Address City/[facility]/ZIP Co de Phone Number [facility] [address] [place] [address] [phone] * Phosphate (As Phosphorus) (12/09/2022 12:14 PM EDT) Phosphorus 3.5 2.7 - 4.5 mg/dL [facility] 12/09/2022 12:1 4 PM EDT 12/09/2022 12:14 PM EDT Generic External Data Provider LAB BLOOD ORDERAB LES Final Result Performing Organization Address [facility] Co de Phone Number [facility] [address] [place] [address] [phone] * (ABNORMAL) Basic Metabolic Panel (12/09/2022 12:14 PM EDT) Sodium 134(L) 135 - 145 mmol/L [facility] Potassium 4.6 3.3 - 5.1 mmol/L [facility] Chloride 99 96 - 108 mmol/L [facility] Carbon Dioxide 31(H) 22 - 29 mmol/L [facility] Anion Gap 9(L) 12 - 20 [facility] Urea Nitrogen (BUN) 15 9 - 16 mg/dL [facility] Creatinine, Serum 0.87 0.5 - 1.4 mg/dL [facility] Estimated Glomerular Filt Rate >60 [facility] Comment:NOTE: For -Am erican individuals, multiply the result by 1.210.Chronic Kidney Disease: Estimated GFR < 60 mL/min/1.07n5Fzpemk Kidney Disease: Estimated GFR < 15 mL/min/1.73m2 Glucose 273(H) 60 - 115 mg/dL [facility] Calcium 9.4 8.4 - 10.2 mg/dL [facility] 12/09/2022 12:1 4 PM EDT 12/09/2022 12:14 PM EDT [facility] External Provider LAB BLO OD ORDERABLES Final Result Performing Organization Address [facility] de Phone Number [facility] [address] [place] [phone] * (ABNORMAL) Magnesium (11/30/2022 4:06 PM EDT) Pathologist [facility] Magnesium 1.3(LL) 1.6 - 2.6 mg/dL [facility] Comment:Critical value for t est(s): MAGS Results called to and readback by: DR SALMON Person calling:[email or web address] Date: [id number] 11/30/2022 4:06 PM EDT 11/30/2022 5:44 PM EDT [facility] External Provider LAB BLO OD ORDERABLES Final Result Performing Organization Address [facility] Phone Number [facility] [address] [place] [phone] * TSH (11/30/2022 4:06 PM EDT) [facility] Thyroid Stimulating Hormone 1.92 0.32 - 4.0 uIU/mL [facility] Comment:TSH 3rd Generation ( [employer]) 11/30/2022 4:06 PM EDT 11/30/2022 5:44 PM EDT [facility] External Provider LAB BLO OD ORDERABLES Final Result Performing Organization Address [facility] de Phone Number [facility] [address] [place] [phone] * (ABNORMAL) CBC auto differential (11/30/2022 4:06 PM EDT) [facility] White Blood Count 7.3 4.8 - 10.8 X10*3/uL [facility] Red Blood Count 3.62(L) 4.20 - 5.50 X10*6/uL [facility] Hemoglobin 10.4(L) 12.0 - 16.0 g/dl [facility] Hematocrit 32.0(L) 37.0 - 47.0 % [facility] Mean Corpuscular Volume 88.4 80.0 - 98.0 fL [facility] Mean Corpuscular Hemoglobin 28.7 27.0 - 33.0 pg [facility] Mean Corpuscular HGB Conc 32.5 31.0 - 35.0 g/dl [facility] Red Cell Distribution Width 19.0(H) 11.0 - 16.0 % [facility] Platelet Count 277 160 - 400 X10*3/uL [facility] Mean Platelet Volume 11.2 9.4 - 12.3 fL [facility] Neutrophils Percent Auto 49.2 45 - 73 % [facility] Imm Gran Pct Auto 0.3 0.0 - 0.4 % [facility] Lymphocytes Percent Auto 36.0 20 - 40 % [facility] Monocytes Percent Auto 11.4(H) 2 - 11 % [facility] Eosinophils Percent Auto 2.1 0 - 4 % [facility] Basophils Percent Auto 1.0 0 - 2 % [facility] NRBC Pct Auto 0.0 0.0 - 0.2 /100WBC [facility] Neutrophils Absolute Auto 3.6 2.0 - 8.3 x10*3/uL [facility] Imm Gran Abs Auto 0.02 0.00 - 0.03 X10*3/uL [facility] Lymphocytes Absolute Auto 2.6 1.2 - 4.9 X10*3/uL [facility] Monocytes Absolute Auto 0.8 0.1 - 1.2 X10*3/uL [facility] Eosinophils Absolute Auto 0.2 0.0 - 0.4 X10*3/uL [facility] Basophils Absolute Auto 0.1 0.0 - 0.2 X10*3/uL [facility] NRBC Abs Auto 0.000 0.0 - 0.012 X10*3/uL [facility] 11/30/2022 4:06 PM EDT 11/30/2022 5:44 PM EDT [facility] External Provider LAB BLO OD ORDERABLES Final Result [facility] [address] [place] [phone] * T-SPOT??.TB (10/30/2022 9:18 AM EDT) [facility] T Spot TB Negative Negative [facility] Comment:A negative test resu lt does not exclude the possibilityof exposure to or infection with Mycobacteriumtuberculosis (M. tuberculosis). Patients with recentexposure to TB infected individuals exhibiting anegative T-SPOT.TB result should be considered forretesting within 6 weeks or if other relevant clinicalsymptoms indicate. Results from T-SPOT.TB testing mustbe used in conjunction with each individual'sepidemiological history, current medical status,and results of other diagnostic evaluations.The T-SPOT.TB test is qualitative and results arereported as positive, borderline, or negative, giventhat the test controls perform as expected. In linewith the Centers for Disease Control and Prevention's2010 recommendation to report quantitative measurementsalongside the qualitative result, the laboratoryprovides spot counts for informational purposes only.The T-SPOT.TB test should not be interpreted as aquantitative test. TS PANEL A 0 [facility] TS PANEL B 0 [facility] Negative Control Passed [facility] Positive Control Passed [facility] Comment:For additional infor gabriela, please refer [email or web address] Paper [employer] Vapor/faq/[email or web address](This link is being provided for informational/educational purposes only.)THIS TEST WAS PERFORMED AT:[id number] [place] [address]UYMDRMJLADONNA ROBERT MD,PHD 10/30/2022 9:18 AM EDT 10/30/2022 9:18 AM EDT [facility] External Provider LAB BLO OD ORDERABLES Final Result Performing Organization Address [facility]/ZIP Co de Phone Number [facility] [address] [place] [phone] * Hepatitis B surface antigen, EIA (10/30/2022 9:18 AM EDT) Hepatitis B Surface Ag Negative Negative [facility] 10/30/2022 9:18 AM EDT 10/30/2022 9:18 AM EDT [facility] External Provider LAB BLO OD ORDERABLES Final Result Performing Organization Address [facility] de Phone Number [facility] [address] [place] [phone] * HIV Ab/Ag ([facility]) (10/30/2022 9:18 AM EDT) HIV AB/AG Nonreactive Nonreactive [facility] Comment:HIV-1 p24 Ag and/or HIV-1/HIV-2 Ab not detected.A test result that is nonreactive does not exclude thepossibility of exposure to or infection with HIV-1 and/orHIV-2. Nonreactive results in this assay for individualswith prior exposure to HIV-1 and/or HIV-2 may be due toantigen and antibody levels that are below the limit ofdetection of this assay.[employer] HIV Ag/Ab Combo assay result andsupplemental assay results should be interpreted inconjunction with the patient's clinical presentation,history and other laboratory results. If the results areinconsistent with clinical evidence, additional testing issuggested to confirm the result. 10/30/2022 9:18 AM EDT 10/30/2022 9:18 AM EDT [facility] External Provider LAB BLO OD ORDERABLES Final Result Performing Organization Address [facility] Co de Phone Number [facility] [address] [place] [phone] * Hepatitis C Ab (10/30/2022 9:18 AM EDT) Hepatitis C Antibody Nonreactive Nonreactive [facility] Comment:Antibodies to HCV no t detected; does not exclude early acuteHCV infection. 10/30/2022 9:18 AM EDT 10/30/2022 9:18 AM EDT [facility] External Provider LAB BLO OD ORDERABLES Final Result Performing Organization Address [facility]/ZIP Co de Phone Number [facility] [address] [place] [phone] * Hepatitis B Core Antibody, Total (10/30/2022 9:18 AM EDT) Hepatitis B Core Antibody Nonreactive Nonreactive [facility] 10/30/2022 9:18 AM EDT 10/30/2022 9:18 AM EDT [facility] External Provider LAB BLO OD ORDERABLES Final Result Performing Organization Address [facility] Co de Phone Number [facility] [address] [place] [phone] * Hepatitis B Surface Antibody, Qualitative (10/30/2022 9:18 AM EDT) ~Hepatitis B Surface Antibody NONREACTIVE Nonreactive [facility] Comment:Nonreactive: < 8.00 mIU/mL 10/30/2022 9:18 AM EDT 10/30/2022 9:18 AM EDT [facility] External Provider LAB BLO OD ORDERABLES Final Result Performing Organization Address [facility] Co de Phone Number [facility] [address] [place] [phone] * Vitamin B12/Folate, Serum Panel (10/30/2022 9:18 AM EDT) Pathologist [facility] Vitamin B12 546 200 - 900 pg/mL [facility] Comment:NORMAL 200-900 PG/ML INDETERMINATE 160-199 PG/ML DEFICIENT < 160 PG/ML Folate 11.6 > or = 4.0 ng/mL [facility] Comment:Reference Values:> o r = 4.0 ng/mL< 4.0 ng/mL suggests folate deficiency Methotrexate, aminopterin and folinic acid(leucovorin) are chemotherapeutic agents whose molecularstructures are similar to folate; therefore, the Architectfolate assay cannot be used for patients using these drugs. 10/30/2022 9:18 AM EDT 10/30/2022 9:18 AM EDT [facility] External Provider LAB BLO OD ORDERABLES Final Result Performing Organization Address [facility] Co de Phone Number [facility] [address] [place] [phone] * Prealbumin (10/30/2022 9:18 AM EDT) [facility] Prealbumin 26.0 20 - 40 mg/dL [facility] 10/30/2022 9:18 AM EDT 10/30/2022 9:18 AM EDT [facility] External Provider LAB BLO OD ORDERABLES Final Result Performing Organization Address City/[facility] Co de Phone Number [facility] [address] [place] [phone] * (ABNORMAL) Comprehensive Metabolic Panel (10/30/2022 9:18 AM EDT) [facility] Sodium 137 135 - 145 mmol/L [facility] Potassium 3.8 3.3 - 5.1 mmol/L [facility] Chloride 102 96 - 108 mmol/L [facility] Carbon Dioxide 22 22 - 29 mmol/L [facility] Anion Gap 17 12 - 20 [facility] Urea Nitrogen (BUN) 10 9 - 16 mg/dL [facility] Creatinine, Serum 0.90 0.5 - 1.4 mg/dL [facility] Estimated Glomerular Filt Rate >60 [facility] Comment:NOTE: For -Am erican individuals, multiply the result by 1.210.Chronic Kidney Disease: Estimated GFR < 60 mL/min/1.43x7Nctqqu Kidney Disease: Estimated GFR < 15 mL/min/1.73m2 Glucose 134(H) 60 - 115 mg/dL [facility] Calcium 10.0 8.4 - 10.2 mg/dL [facility] Bilirubin, Total 0.5 0.0 - 1.0 mg/dL [facility] Aspartate Amino Transferase 51(H) 5 - 31 U/L [facility] Alanine Aminotransferase 32(H) 0 - 31 U/L [facility] Total Protein 6.9 6.5 - 8.0 g/dL [facility] Albumin Level 3.8 3.5 - 5.0 g/dL [facility] Alkaline Phosphatase 51 39 - 117 U/L [facility] 10/30/2022 9:18 AM EDT 10/30/2022 9:18 AM EDT [facility] External Provider LAB BLO OD ORDERABLES Final Result Performing Organization Address [facility]/ZIP Co de Phone Number [facility] [address] [place] [phone] * (ABNORMAL) Ferritin (08/31/2022 7:32 AM EDT) Ferritin 299(H) 10 - 250 ng/mL [facility] 08/31/2022 7:32 AM EDT 08/31/2022 7:32 AM EDT [facility] External Provider LAB BLO OD ORDERABLES Final Result Performing Organization Address [facility]/ZIP Co de Phone Number [facility] [address] [place] [phone] [phone] * B Type Natriuretic Peptide (BNP) (08/31/2022 7:32 AM EDT) B Type Natriuretic Peptide 68 <100 pg/mL [facility] Comment:For those patients w ho are being treated with Natrecor(nesiritide, recombinant BNP), BNP testing should beperformed at least two hours post treatment in order toensure that only endogenous levels of BNP are detected. 08/31/2022 7:32 AM EDT 08/31/2022 7:32 AM EDT [facility] External Provider LAB BLO OD ORDERABLES Final Result Performing Organization Address City/[facility]/ZIP Co de Phone Number [facility] [address] [place] [phone] * (ABNORMAL) Lipase (08/31/2022 7:32 AM EDT) Lipase 154(H) 8 - 78 U/L [facility] 08/31/2022 7:32 AM EDT 08/31/2022 7:32 AM EDT [facility] External Provider LAB BLO OD ORDERABLES Final Result Performing Organization Address City/[facility]/ZIP Co de Phone Number [facility] [address] [place] [phone] * Iron And Total Iron Binding Capacity (08/31/2022 7:32 AM EDT) Iron 36 30 - 160 mcg/dL [facility] Total Iron Binding Capacity 229 228 - 428 mcg/dL [facility] Percent Iron Saturation 16 15 - 50 % [facility] Unsaturated Iron Binding 193 ug/dL [facility] 08/31/2022 7:32 AM EDT 08/31/2022 7:32 AM EDT [facility] External Provider LAB BLO OD ORDERABLES Final Result Performing Organization Address [facility] de Phone Number [facility] [address] [place] [phone] [phone] * (ABNORMAL) Basic Metabolic Panel (08/31/2022 7:32 AM EDT) Pathologist [facility] Sodium 138 135 - 145 mmol/L [facility] Potassium 3.8 3.3 - 5.1 mmol/L [facility] Chloride 102 96 - 108 mmol/L [facility] Carbon Dioxide 20(L) 22 - 29 mmol/L [facility] Anion Gap 20 12 - 20 [facility] Urea Nitrogen (BUN) 6(L) 9 - 16 mg/dL [facility] Creatinine, Serum 0.85 0.5 - 1.4 mg/dL [facility] Estimated Glomerular Filt Rate >60 [facility] Comment:NOTE: For -Am erican individuals, multiply the result by 1.210.Chronic Kidney Disease: Estimated GFR < 60 mL/min/1.99a2Dyzaly Kidney Disease: Estimated GFR < 15 mL/min/1.73m2 Glucose 137(H) 60 - 115 mg/dL [facility] Calcium 9.1 8.4 - 10.2 mg/dL [facility] 08/31/2022 7:32 AM EDT 08/31/2022 7:32 AM EDT [facility] External Provider LAB BLO OD ORDERABLES Final Result Performing Organization Address [facility] Co de Phone Number [facility] [address] [place] [phone] * (ABNORMAL) Hepatic Function Panel (08/31/2022 7:32 AM EDT) Bilirubin, Total 0.4 0.0 - 1.0 mg/dL [facility] Bilirubin, Direct 0.2 0.0 - 0.5 mg/dL [facility] Aspartate Amino Transferase 17 5 - 31 U/L [facility] Alanine Aminotransferase 8 0 - 31 U/L [facility] Total Protein 6.8 6.5 - 8.0 g/dL [facility] Albumin Level 3.8 3.5 - 5.0 g/dL [facility] Alkaline Phosphatase 120(H) 39 - 117 U/L [facility] 08/31/2022 7:32 AM EDT 08/31/2022 7:32 AM EDT us [facility] External Provider LAB BLO OD ORDERABLES Final Result [facility] [address] [place] [phone] * (ABNORMAL) CBC auto differential (08/31/2022 7:32 AM EDT) White Blood Count 12.4(H) 4.8 - 10.8 X10*3/uL [facility] Red Blood Count 3.94(L) 4.20 - 5.50 X10*6/uL [facility] Hemoglobin 11.4(L) 12.0 - 16.0 g/dl [facility] Hematocrit 36.0(L) 37.0 - 47.0 % [facility] Mean Corpuscular Volume 91.4 80.0 - 98.0 fL [facility] Mean Corpuscular Hemoglobin 28.9 27.0 - 33.0 pg [facility] Mean Corpuscular HGB Conc 31.7 31.0 - 35.0 g/dl [facility] Red Cell Distribution Width 14.7 11.0 - 16.0 % [facility] Platelet Count 425(H) 160 - 400 X10*3/uL [facility] Mean Platelet Volume 10.3 9.4 - 12.3 fL [facility] Neutrophils Percent Auto 53.6 45 - 73 % [facility] Imm Gran Pct Auto 0.4 0.0 - 0.4 % [facility] Lymphocytes Percent Auto 30.2 20 - 40 % [facility] Monocytes Percent Auto 10.1 2 - 11 % [facility] Eosinophils Percent Auto 4.6(H) 0 - 4 % [facility] Basophils Percent Auto 1.1 0 - 2 % [facility] NRBC Pct Auto 0.0 0.0 - 0.2 /100WBC [facility] Neutrophils Absolute Auto 6.7 2.0 - 8.3 x10*3/uL [facility] Imm Gran Abs Auto 0.05(H) 0.00 - 0.03 X10*3/uL [facility] Lymphocytes Absolute Auto 3.8 1.2 - 4.9 X10*3/uL [facility] Monocytes Absolute Auto 1.3(H) 0.1 - 1.2 X10*3/uL [facility] Eosinophils Absolute Auto 0.6(H) 0.0 - 0.4 X10*3/uL [facility] Basophils Absolute Auto 0.1 0.0 - 0.2 X10*3/uL [facility] NRBC Abs Auto 0.000 0.0 - 0.012 X10*3/uL [facility] 08/31/2022 7:32 AM EDT 08/31/2022 7:32 AM EDT [facility] External Provider LAB BLO OD ORDERABLES Final Result [facility] [address] [place] [phone] * Hemoglobin A1c (08/31/2022 7:32 AM EDT) Hemoglobin A1c 5.8 % [facility] Comment:Hemoglobin A1C Refer ence Range Adults: 4.8 - 6.0 % Non diabetic: < 6.0 % Goal: < 7.0 %Additional Action Suggested: > 8.0 %Note: Hemoglobin A1c results are invalid for patients with abnormal amounts of HbF. Blood transfusions may impact the HbA1c concentration in the patient sample. Estimated Average Glucose 120 mg/dL [facility] Comment:eAG = Estimated ave rage glucose which is %A1C expressed asaverage glucose, using the formula of the [id number] Glucose study (ADAG), Diabetes Care, Vol.31,#8,Dec. 2007 08/31/2022 7:32 AM EDT 08/31/2022 7:32 AM EDT [facility] External Provider LAB BLO OD ORDERABLES Final Result Performing Organization Address [facility] Co de Phone Number [facility] [address] [place] [phone] * (ABNORMAL) Basic Metabolic Panel (08/10/2022 4:55 AM EDT) Sodium 137 135 - 145 mmol/L [facility] Potassium 4.7 3.3 - 5.1 mmol/L [facility] Chloride 105 96 - 108 mmol/L [facility] Carbon Dioxide 21(L) 22 - 29 mmol/L [facility] Anion Gap 16 12 - 20 [facility] Urea Nitrogen (BUN) 9 9 - 16 mg/dL [facility] Creatinine, Serum 0.79 0.5 - 1.4 mg/dL [facility] Estimated Glomerular Filt Rate >60 [facility] Comment:NOTE: For -Am erican individuals, multiply the result by 1.210.Chronic Kidney Disease: Estimated GFR < 60 mL/min/1.47m7Rjoama Kidney Disease: Estimated GFR < 15 mL/min/1.73m2 Glucose 95 60 - 115 mg/dL [facility] Calcium 8.7 8.4 - 10.2 mg/dL [facility] 08/10/2022 4:55 AM EDT 08/10/2022 6:02 AM EDT [facility] External Provider LAB BLO OD ORDERABLES Final Result Performing Organization Address [facility]/ZIP Co de Phone Number [facility] [address] [place] [phone] * (ABNORMAL) CBC auto differential (08/10/2022 4:55 AM EDT) White Blood Count 9.3 4.8 - 10.8 X10*3/uL [facility] Red Blood Count 3.24(L) 4.20 - 5.50 X10*6/uL [facility] Hemoglobin 9.7(L) 12.0 - 16.0 g/dl [facility] Hematocrit 30.5(L) 37.0 - 47.0 % [facility] Mean Corpuscular Volume 94.1 80.0 - 98.0 fL [facility] Mean Corpuscular Hemoglobin 29.9 27.0 - 33.0 pg [facility] Mean Corpuscular HGB Conc 31.8 31.0 - 35.0 g/dl [facility] Red Cell Distribution Width 15.2 11.0 - 16.0 % [facility] Platelet Count 647(H) 160 - 400 X10*3/uL [facility] Mean Platelet Volume 10.1 9.4 - 12.3 fL [facility] Neutrophils Percent Auto 54.9 45 - 73 % [facility] Imm Gran Pct Auto 0.5(H) 0.0 - 0.4 % [facility] Lymphocytes Percent Auto 26.3 20 - 40 % [facility] Monocytes Percent Auto 8.3 2 - 11 % [facility] Eosinophils Percent Auto 8.5(H) 0 - 4 % [facility] Basophils Percent Auto 1.5 0 - 2 % [facility] NRBC Pct Auto 0.0 0.0 - 0.2 /100WBC [facility] Neutrophils Absolute Auto 5.1 2.0 - 8.3 x10*3/uL [facility] Imm Gran Abs Auto 0.05(H) 0.00 - 0.03 X10*3/uL [facility] Lymphocytes Absolute Auto 2.4 1.2 - 4.9 X10*3/uL [facility] Monocytes Absolute Auto 0.8 0.1 - 1.2 X10*3/uL [facility] Eosinophils Absolute Auto 0.8(H) 0.0 - 0.4 X10*3/uL [facility] Basophils Absolute Auto 0.1 0.0 - 0.2 X10*3/uL [facility] NRBC Abs Auto 0.000 0.0 - 0.012 X10*3/uL [facility] 08/10/2022 4:55 AM EDT 08/10/2022 6:02 AM EDT [facility] External Provider LAB BLO OD ORDERABLES Final Result [facility] [address] [place] [phone] [phone] * (ABNORMAL) Comprehensive Metabolic Panel (08/03/2022 5:00 AM EDT) Sodium 136 135 - 145 mmol/L [facility] Potassium 3.9 3.3 - 5.1 mmol/L [facility] Chloride 107 96 - 108 mmol/L [facility] Carbon Dioxide 20(L) 22 - 29 mmol/L [facility] Anion Gap 13 12 - 20 [facility] Urea Nitrogen (BUN) 11 9 - 16 mg/dL [facility] Creatinine, Serum 0.79 0.5 - 1.4 mg/dL [facility] Estimated Glomerular Filt Rate >60 [facility] Comment:NOTE: For -Am erican individuals, multiply the result by 1.210.Chronic Kidney Disease: Estimated GFR < 60 mL/min/1.33r9Dcilhn Kidney Disease: Estimated GFR < 15 mL/min/1.73m2 Glucose 127(H) 60 - 115 mg/dL [facility] Calcium 8.2(L) 8.4 - 10.2 mg/dL [facility] Bilirubin, Total 0.3 0.0 - 1.0 mg/dL [facility] Aspartate Amino Transferase 16 5 - 31 U/L [facility] Alanine Aminotransferase 7 0 - 31 U/L [facility] Total Protein 4.8(L) 6.5 - 8.0 g/dL [facility] Albumin Level 2.5(L) 3.5 - 5.0 g/dL [facility] Alkaline Phosphatase 80 39 - 117 U/L [facility] 08/03/2022 5:00 AM EDT 08/03/2022 5:47 AM EDT us [facility] External Provider LAB BLO OD ORDERABLES Final Result [facility] [address] [place] [address] [phone] * (ABNORMAL) CBC auto differential (08/03/2022 5:00 AM EDT) White Blood Count 8.8 4.8 - 10.8 X10*3/uL [facility] Red Blood Count 2.63(L) 4.20 - 5.50 X10*6/uL [facility] Hemoglobin 8.0(L) 12.0 - 16.0 g/dl [facility] Hematocrit 24.6(L) 37.0 - 47.0 % [facility] Mean Corpuscular Volume 93.5 80.0 - 98.0 fL [facility] Mean Corpuscular Hemoglobin 30.4 27.0 - 33.0 pg [facility] Mean Corpuscular HGB Conc 32.5 31.0 - 35.0 g/dl [facility] Red Cell Distribution Width 15.5 11.0 - 16.0 % [facility] Platelet Count 552(H) 160 - 400 X10*3/uL [facility] Mean Platelet Volume 10.3 9.4 - 12.3 fL [facility] Neutrophils Percent Auto 61.1 45 - 73 % [facility] Imm Gran Pct Auto 0.8(H) 0.0 - 0.4 % [facility] Lymphocytes Percent Auto 21.7 20 - 40 % [facility] Monocytes Percent Auto 10.2 2 - 11 % [facility] Eosinophils Percent Auto 4.9(H) 0 - 4 % [facility] Basophils Percent Auto 1.3 0 - 2 % [facility] NRBC Pct Auto 0.0 0.0 - 0.2 /100WBC [facility] Neutrophils Absolute Auto 5.4 2.0 - 8.3 x10*3/uL [facility] Imm Gran Abs Auto 0.07(H) 0.00 - 0.03 X10*3/uL [facility] Lymphocytes Absolute Auto 1.9 1.2 - 4.9 X10*3/uL [facility] Monocytes Absolute Auto 0.9 0.1 - 1.2 X10*3/uL [facility] Eosinophils Absolute Auto 0.4 0.0 - 0.4 X10*3/uL [facility] Basophils Absolute Auto 0.1 0.0 - 0.2 X10*3/uL [facility] NRBC Abs Auto 0.000 0.0 - 0.012 X10*3/uL [facility] 08/03/2022 5:00 AM EDT 08/03/2022 5:47 AM EDT [facility] External Provider LAB BLO OD ORDERABLES Final Result Performing Organization Address City/[facility]/ZIP Co de Phone Number [facility] [address] [place] [phone] * (ABNORMAL) Magnesium (07/13/2022 8:29 AM EST) Magnesium 1.5(L) 1.6 - 2.6 mg/dL [facility] 07/13/2022 8:29 AM EST 07/13/2022 8:29 AM EST [facility] External Provider LAB BLO OD ORDERABLES Final Result Performing Organization Address [facility] Co de Phone Number [facility] [address] [place] [phone] documented in this encounter Visit Diagnoses Diagnosis Hypomagnesemia- Primary Disorders of magnesium metabolism documented in this encounter Care Teams Weigher And Crusher Relationship Specialty Start Date End Date Shawna Gamble MD [address] [place] [address] PCP - General Family Medicine 05/13/22 documented as of this encounter
--- OUTSIDE RECORDS SUMMARY | 2024-06-30 13:53 | XMS_ITS | Clinical Summary ---
Author Organization [facility] Address [address] [phone] Phone Care Team Providers Care Licensing Registration Examiner Name Role Phone Shawna Gamble MD Primary Care Provider Unava ilable Allergies Active Allergy Reactions Criticality Noted Date Comments Acetaminophen 04/04/2014 Acetaminophen-Codeine Anxiety Low 06/08/2022 Azithromycin Itching 10/30/2022 Cortisone 02/11/2023 Doxycycline 02/11/2023 Metformin 06/17/2010 Other reaction(s): GI intolerance Morphine 02/11/2023 Oxycodone 02/11/2023 Penicillins 02/11/2023 Pioglitazone 06/17/2010 Other reaction(s): fluid retention Sulfamethizole 02/11/2023 Sulfamethoxazole-Trimethopri m Hives 06/08/2022 Other reaction(s): hives Tramadol Anxiety Low 06/08/2022 Trimethoprim 06/17/2010 Other reaction(s): Rash, swollen lips Medications polyethylene glycol (MiraLax) 17 GM/SCOOP powder Take 17 g by mouth 3 Active metoprolol tartrate 25 MG tablet Take 12.5 mg by mouth 3 Active gabapentin (NEURONTIN) 600 MG tablet Take 600 mg by mouth 2 Active acetaminophen (TYLENOL) 325 MG tablet Take 325 mg by mouth if needed 3 Active aspirin (ST JESSICA) 81 MG EC tablet Take 81 mg by mouth in the morning. 3 Active atorvastatin (LIPITOR) 80 MG tablet TAKE 1 TABLET (80 MG) BY MOUTH IN THE MORNING 3 Active bisacodyl (DULCOLAX) 10 MG suppository Insert 10 mg into the rectum 3 Active Cholecalciferol 250 MCG (41459 UT) capsule TAKE 1 CAPSULE BY MOUTH TWICE WEEKLY FOR 3 MONTHS Active clopidogrel (PLAVIX) 75 MG tablet Take 1 tablet by mouth in the morning. 3 Active cyclobenzaprine (FLEXERIL) 5 MG tablet TAKE 1 TABLET BY ORAL ROUTE 3-4 HOURS BEFORE BEDTIME NEEDED 2 Active docusate sodium (COLACE) 100 MG capsule Take by mouth 1 (one) time each day 3 Active fluticasone (FLONASE) 50 MCG/ACT nasal spray SPRAY 1 SPRAY TO EACH NOSTRIL 2 TIMES DAILY NEEDED FOR ITCHING 2 Active glucose blood (FREESTYLE TEST STRIPS) test strip FreeStyle Lite Strips 3 Active hydrOXYzine (ATARAX) 25 MG tablet TAKE 1 TABLET BY ORAL ROUTE 3 TIMES EVERY DAY NEEDED FOR ANXIETY 2 Active lidocaine (XYLOCAINE) 5 % ointment Apply topically at bed time 2 Active lisinopril 40 MG tablet Take 1 tablet by mouth 1 (one) time each day 3 Active loratadine (CLARITIN) 10 MG tablet Take 10 mg by mouth in the morning. 2 Active metFORMIN (GLUCOPHAGE) 500 MG tablet Take 1,000 mg by mouth in the morning and 1,000 mg in the evening. Take with meals. 2 Active mirtazapine (REMERON) 15 MG tablet Take 15 mg by mouth 3 Active ondansetron (ZOFRAN) 4 MG tablet Take 4 mg by mouth 3 Active Plecanatide (Trulance) 3 MG tablet 2 Active amitriptyline (ELAVIL) 50 MG tablet Take 50 mg by mouth every night 4 Active Senna-Time 8.6 MG tablet Take 2 tablets by mouth 1 (one) time each day Active DULoxetine (CYMBALTA) [address] capsule Take 20 mg by mouth 1 (one) time each day 2 Active furosemide (LASIX) 20 MG tablet Take 20 mg by mouth 1 (one) time each day For 30 days Active ferrous gluconate (FERGON) 324 (38 Fe) MG tabletIndication s:Other iron deficiency anemia Take 1 tablet (324 mg total) by mouth 1 (one) time each day with breakfast 30 tablet 11 4 02/16/20 25 Active Magnesium 400 MG tabletIndication s:Hypomagnesemia Take 400 mg by mouth 1 (one) time each day 30 tablet 11 4 Active Active Problems Problem Noted Date Diagnosed Date Stage 3a chronic kidney disease 02/16/2024 Other iron deficiency anemia 02/16/2024 Chronic kidney disease, stage 2 (mild) 4 Underweight 03/11/2023 03/11/2023 History of coronary artery bypass grafting 12/1503/11/2023 Overview (03/11/2023): 07/2022 at [facility] Chest pain on breathing 12/04/2022 03/11/20 Overview (03/11/2023): Last Assessment & Plan: EKG normal in clinic Minimal pain with palpation over sternum CXR ordered today- read as normal, telephone message to alert patient of results, use muscle rub to area and notify clinic if not improved by next week Consider D-dimer if this comes back normal Deficiency of macronutrients 12/01/2022 Overview (03/11/2023): Last Assessment & Plan: Stop Trazodone, start Remeron 15mg nightly for sleep and appetite Hypomagnesemia 11/30/2022 03/11/2023 Overview (03/11/2023): Magnesium low at 1.3 11/30/2022. Previous Magnesium low at 1.5 07/13/22. Pt reprots feeling well. Normal renal function. -Magnesium oxide 400mg bid for 1 week then 400 daily ordered 11/30/2022 - Pt cautioned may cause diarrhea and she may need to titrate down to once a week. Infection of foot 10/30/2022 03/11/2023 Overview (03/11/2023): Last Assessment & Plan: Refer to wound clinic, non-healing diabetic ulcer Other lack of coordination 08/04/202203/11 Muscle wasting and atrophy, not elsewhere classified, upper arm 07/31/2022 03/11/2023 Encounter for surgical after care following surgery on the circulatory system 07/31/2022 03/11/2023 Dental plaque 06/18/2022 03/11/2023 Excessive dental attrition, limited to enamel 03/11/2023 Urge incontinence of urine 06/08/202203/11 Overview (03/11/2023): Last Assessment & Plan: Chux pads for nighttime incontinence Acute sinusitis 04/27/2018 03/11/2023 Gastritis 04/27/2018 03/11/2023 Shoulder pain 04/27/2018 03/11/2023 Overview (03/11/2023): Last Assessment & Plan: Lidocaine patches followup in 2-3 months to consider injection Essential hypertension 01/31/2018 3 Overview (03/11/2023): Last Assessment & Plan: Well controlled on current medications Maintenance: Metoprolol, [...] prescriptions without first consulting health care provider Chronic low back pain 03/10/2012 03/11/2023 Coronary atherosclerosis 03/10/2012 023 Overview (03/11/2023): Last Assessment & Plan: Continue Metoprolol, Imdur Following with cardiology Hyperlipidemia 03/10/2012 03/11/2023 Overview (03/11/2023): Last Assessment & Plan: Continue Atorvastatin 80mg daily Check lipids in 3 months Neuropathy due to diabetes mellitus 03/10/2012 03/11/2023 Overview (03/11/2023): Last Assessment & Plan: Continue Gabapentin May require dose titration based on weakness Obesity 03/10/2012 03/11/2023 Type 2 diabetes mellitus without complication 03/11/2023 Overview (03/11/2023): Last Assessment & Plan: Continue Metformin 500mg XR daily A1C 6.8, random sugar 200 today Immunizations Name Administration Dates Next Due Hepatitis B 04/27/2018 Influenza Split 03/06/2013,03/10/2012 Influenza Vaccine, Quadrivalent, Adjuvanted 01/15 Influenza, High-dose Seasona l, Quadrivalent, Preservative Free 03/04/2022 Influenza, Quadrivalent, Preservative Free 04/02,05/11/2019,03/03/2016 Influenza, Quadrivalent, With Preservative 01/31,02/15/2015 Pfizer SARS-COV-2 03/11/2021,02/04/2021 Pneumococcal Conjugate 13-Valent 05/11/2019 Pneumococcal Polysaccharide 04/02/2021, 2 Td 06/04/2009,02/12/1995 Tdap 04/27/2018 Zoster 01/23/2020,08/06/2015 Social History Tobacco Use Types Packs/Day Years Used Date Smoking Tobacco: Never Smokeless Tobacco: Never Tobacco Cessation:Counseling Given: Not Answered Alcohol Use Standard Drinks/Week Comments Yes 0 (1 standard drink = 0.6 oz pur e alcohol) Comments Unknown Sex and Gender Information Value Date Recorded Sex Assigned at Not on file Legal Sex Female 10:20 AM EDT Gender Identity Not on file Sexual Orientation Not on file Last Filed Vital Signs Vital Sign Reading Time Taken Comments Blood Pressure 115/58 02/16/2024 2:21 PM EDT Pulse 78 02/16/2024 2:21 PM EDT Temperature - - Respiratory Rate - - Oxygen Saturation 100% 07/21/2023 2:54 PM EST Inhaled Oxygen Concentration - - Weight 65.3 kg (144 lb) 02/16/2024 2:21 PM EDT Height - - Body Mass Index - - Plan of Treatment Upcoming Encounters Date Type Department Care Team (Late st Contact Info) Description 08/23/2024 9:00 AM EDT Office Visit [facility] [address] [phone] Paulette Scott ARNP [address] [phone] Health Maintenance Due Date Last Done Comments Breast Cancer Screening 1955 Colorectal Cancer Screening: Annual FOBT 2002 Colorectal Cancer Screening: Colonoscopy 2002 Colorectal Cancer Screening: Sigmoidoscopy 2002 Diabetes: Ophthalmology Exam 01/21/2023 Diabetes: Pedal Pulse Checked 01/21/2023 Diabetes: Sensory Foot Exam 01/21/2023 Diabetes: Visual Foot Exam 01/21/2023 Influenza Vaccine (#1) 2024 3, 03/04/2022, 04/02/2021, Additional history exists Diabetes: Hemoglobin A1C 03/09/2024 024, 07/14/2023, 11/30/2022 Hepatitis B Vaccine Aged Out 04/27/2018, 8 No longer eligible based on patient's age to complete this topic Pneumococcal Vaccine: 65+ Years Completed 04/02/2021, 05/11/2019, 03/02/2002 Insurance [facility] ([id number]) [facility] ([id number]) Care Teams Licensing Registration Examiner Relationship Specialty Start Date End Date Shawna Gamble MD [address] [place] [phone] PCP - General Clinical Rehab Liaison 02/16/24
--- OUTSIDE RECORDS SUMMARY | 2024-06-30 13:54 | XMS_ITS | Encounter Summary ---
Author Organization [employer] Address [address] [facility] [address] [place] [address] Care Team Providers Care Chronometer Tester Name Role Phone Shawna Gamble MD Primary Care Provider [phone] Encounter Details Date Type Department Care Team (Late st Contact Info) Description 03/22/2023 Abstract [facility] [address] [place] [address] Shawna Gamble MD [address] [place], [place] [phone] Social History Tobacco Use Types Packs/Day Years [...] on filedocumented in this encounter Care Teams Chronometer Tester Relationship Specialty Start Date End Date Shawna Gamble MD [address] [place] [phone] PCP - General Family Medicine 05/13/22 documented as of this encounter
--- OUTSIDE RECORDS SUMMARY | 2024-06-30 13:54 | XMS_ITS | Encounter Summary ---
Author Organization [employer] Address [address] [facility] [address] [place] [address] Care Team Providers Care Welding Operator Name Role Phone Shawna Gamble MD Primary Care Provider [phone] Reason for Visit * Reason Onset Date Comments rs appt 03/29/2023 Encounter Details Date Type Department Care Team ([facility] st Contact Info) Description 03/29/2023 Telephone [facility] [address] [place] [address] Uriel Jacobs DDS [address] [place] [address] rs appt Social History Tobacco Use Types Packs/Day Years [...] encounter Miscellaneous Notes * Telephone Encounter - Brandee mAado - 03/29/2023 9:30 AM EST Patient had to cancel today's appt and would like to reschedule. documented in this encounter Plan of Treatment Not on file documented as of this encounter Visit Diagnoses Not on filedocumented in this encounter Care Teams Welding Operator Relationship Specialty Start Date End Date Shawna Gamble MD [address] [place] [address] PCP - General Family Medicine 05/13/22 documented as of this encounter
--- OUTSIDE RECORDS SUMMARY | 2024-06-30 13:54 | XMS_ITS | Encounter Summary ---
Author Organization [employer] Address [address] [place] [address] [address] [place] [address] Care Team Providers Care Corsage Maker Name Role Phone Shawna Gamble MD Primary Care Provider [phone] Encounter Details Date Type Department Care Team (Late st Contact Info) Description 11/25/2022 Telephone [facility] [address] [place], [place] [phone] Shawna Gamble MD [address] [place] [address] Social History Tobacco Use Types Packs/Day Years Used Date Smoking Tobacco: Never Passive Smoke Exposure: Never Smokeless Tobacco: Never Depression Answer Date [...] encounter Miscellaneous Notes * Telephone Encounter - Maria T Ohara - 11/25/2022 12:04 PM EDT Tc from edgardo with S requesting status on orders for VNA services. Please contact edgardo at [phone] Fax number: [phone] documented in this encounter Plan of Treatment Not on file documented as of this encounter Visit Diagnoses Not on filedocumented in this encounter Care Teams Corsage Maker Relationship Specialty Start Date End Date Shawna Gamble MD [address] [place] [phone] PCP - General Family Medicine 05/13/22 documented as of this encounter
--- OUTSIDE RECORDS SUMMARY | 2024-06-30 13:54 | XMS_ITS | Encounter Summary ---
Author Organization [employer] Address [address] [facility] [address] [place] [address] Care Team Providers Care Sales And Service Engineer Name Role Phone Shawna Gamble MD Primary Care Provider [phone] Reason for Visit * Reason Comments Med Refill Encounter Details Date Type Department Care Team ([facility] st Contact Info) Description 02/18/2023 Refill [facility] [address] [place], [place] [phone] Shawna Gamble MD [address] [place] [address] Primary insomnia Social History Tobacco Use Types Packs/Day Years Used Date Smoking Tobacco: Never Passive Smoke Exposure: Never Smokeless Tobacco: Never Alcohol Use Standard Drinks/Week Comments Never 0 (1 standard drink = 0.6 oz pur e alcohol) Housing Stability Answer Date Recorded What is your housing situation today? I have amador telles 02/22/[address] you li ve. Do you have problems with any of the following? None of the above 02/22/2023 Food Insecurity Answer Date Recorded Within the past 12 months, y ou worried that your food would run out before you got money to buy more: Never True 02/22/2023 Within the past 12 months,th e food you bought just didn't last and you didn't have enough money to get more: Never True 01/2023 Transportation Answer Date Recorded In the past 12 months, has l ack of transportation kept you from medical appts, meetings, work or from getting things needed for daily living? No 02/22/2023 Utilities Answer Date Recorded In the past 12 months, has t he electric, gas, oil or water company threatened to shut off services in your home? No 02/22/2023 Depression Answer Date Recorded Patient Health Questionnaire-2 [...] as of this encounter Visit Diagnoses Diagnosis Primary insomnia Persistent disorder of initiating or maintaining sleep documented in this encounter Care Teams Sales And Service Engineer Relationship Specialty Start Date End Date Shawna Gamble MD [address] [place] [phone] PCP - General Family Medicine 05/13/22 documented as of this encounter
--- OUTSIDE RECORDS SUMMARY | 2024-06-30 13:54 | XMS_ITS | Encounter Summary ---
Author Organization [employer] Address [address] [facility] [address] [place] [address] Care Team Providers Care Recreation Therapy Aide Name Role Phone Shawna Gamble MD Primary Care Provider [phone] Encounter Details Date Type Department Care Team (Late st Contact Info) Description 03/15/2023 Orders Only [facility] [address] [place] [address] Shawna Gamble MD [address] [place], [place] [phone] Social History Tobacco Use Types Packs/Day Years [...] on filedocumented in this encounter Care Teams Recreation Therapy Aide Relationship Specialty Start Date End Date Shawna Gamble MD [address] [place] [id number] PCP - General Family Medicine 05/13/22 documented as of this encounter
--- OUTSIDE RECORDS SUMMARY | 2024-06-30 13:54 | XMS_ITS | Encounter Summary ---
Author Organization [employer] Address [address] [facility] [address] [place] [address] Care Team Providers Care Sheet Rock Hanger Name Role Phone Shawna Gamble MD Primary Care Provider [phone] Reason for Visit * Reason Comments Med Refill Encounter Details Date Type Department Care Team ([facility] st Contact Info) Description 05/07/2023 Refill [facility] [address] [place] [address] Shawna Gamble MD [address] [place] [address] Social History Tobacco Use Types Packs/Day Years [...] on filedocumented in this encounter Care Teams Sheet Rock Hanger Relationship Specialty Start Date End Date Shawna Gamble MD [address] [place] [id number] PCP - General Family Medicine 05/13/22 documented as of this encounter
--- OUTSIDE RECORDS SUMMARY | 2024-06-30 13:54 | XMS_ITS | Encounter Summary ---
Author Organization [employer] Address [address] [facility] [address] [place] [address] Care Team Providers Care Senior Analyst Name Role Phone Shawna Gamble MD Primary Care Provider [phone] Reason for Visit * Reason Comments Med Refill Encounter Details Date Type Department Care Team ([facility] st Contact Info) Description 02/26/2023 Refill [facility] [address] [place], [place] [phone] Shawna Gamble MD [address] [place] [address] Primary insomnia Social History Tobacco Use Types [...] sleep documented in this encounter Care Teams Senior Analyst Relationship Specialty Start Date End Date Shawna Gamble MD [address] [place] [id number] PCP - General Family Medicine 05/13/22 documented as of this encounter
== END 2024-06-30 13:50 | disposition home or self-care (01) ==
LOC: HO.MAMMO 13:49
PROVIDERS: PCP General Practice; Visit Provider General Practice
DX: Z12.31 Encounter for screening mammogram for malignant neoplasm of breast (principal)
CPT/HCPCS: 77063; 77067

== ENCOUNTER → 2024-06-30 14:15 | Outpatient (BNV) | payer OTHER, SELFPAY | PROVIDERS: PCP General Practice; Visit Provider Internal Medicine | DX: Z12.31 Encounter for screening mammogram for malignant neoplasm of breast (principal) | CPT/HCPCS: 77063; 77067 ==

== ENCOUNTER 2024-09-27 12:21 | Outpatient (REF) | payer OTHER, SELFPAY ==
--- OUTSIDE RECORDS SUMMARY | 2024-09-27 12:51 | XMS_ITS | Clinical Summary ---
Author Organization [facility] Address [address] [place] [address] Care Team Providers Care Application Integration Specialist Name Role Phone Unavailable Primary Care Provider Unavailabl e Social History Tobacco Use Types Packs/Day Years Used Date Smoking Tobacco: Never Assessed Comments Unknown Sex and Gender Information Value Date Recorded Sex Assigned at Not on file Legal Sex Female 2:59 PM EDT Gender Identity Not on file Sexual [...]
--- OUTSIDE RECORDS SUMMARY | 2024-09-27 12:51 | XMS_ITS | Data Portability ---
Author Organization [facility] (formerly [facility])[3], Main Office Address [address] , [address] [place] [address] Care Team Providers Care Services Manager Name Role Phone DELMIS HEARD 2ND FLOOR OTHER ROSIBEL S[employer]FIELD Primary Care Provider Assessment No [...] Modified By Organization Details Last Modified Time 08/01/2022472560 Consider changin g APAP from 975 mg to 1 g po q 6 h scheduled -ok despite > recommended max 3 g/d Dispo - home with services when rehab goals are met, likely 7-10 days Total fwp-mxiv-kk-face time spent reviewing records today was 32 minutes/2 units. [email or web address] Not available 08/01/2022 19:41:07 Reason for Referral None Reported. Problems Name Problem SNOMED Code Status Onset Date Resolution Date Notes Provider Name and Address Organization Details Recorded Time Coronary arterioscle rosis 11309327 Active 2022 YOCASTA CHAMBERS PA-C [address], [address], [place], [address], [facility] 3 19:22:01 Essential hypertensio n 91184192 Active 2022 YOCASTA CHAMBERS PA-C [address], [address], [place], [address], [facility] 3 19:22:06 Dyslipidemi a 729857843 Active 2022 YOCASTA CHAMBERS PA-C [address], [address], [place], [address], [facility] 3 19:22:13 Type 2 diabetes mellitus with peripheral angiopathy 464462447 Active 2022 YOCASTA CHAMBERS PA-C [address], [address], [place], [address], [facility] 3 19:22:25 Peripheral neuropathy due to type 2 diabetes mellitus 5672277028250 Active 2022 YOCASTA CHAMBERS PA-C [address], [address], [place], [address], [facility] 3 19:22:33 Unintention al weight loss 775649640 Active 2022 YOCASTA CHAMBERS PA-C [address], [address], [place], [address], [facility] 3 19:22:40 Orthostatic hypotension 22780109 Active 2022 YOCASTA CHAMBERS PA-C [address], [address], [place], [address], [facility] 3 19:23:00 Hyponatremi a 32436951 Active 2022 YOCASTA CHAMBERS PA-C [address], [address], [place], [address], [facility] 3 19:23:09 Anemia 227665962 Active 2022 YOCASTA CHAMBERS PA-C [address], [address], [place], [address], [facility] 3 19:23:18 Chronic constipatio n 112666875 Active 2022 YOCASTA CHAMBERS PA-C [address], [address], [place], [address], [facility] 3 19:23:25 Seasonal allergy 566475087 Active 2022 [address]OD [address]ISC [address], [address], [place], [address], [facility] 3 19:23:32 Stenosis of celiac artery 4908095393747 9101 Active 2022 YOCASTA CHAMBERS PA-C [address], [address], [place], [address], [facility] 3 19:23:44 Abdominal pain 03634958 Active 2022 VINOD DAVISC [address], [address], [place], [address], [facility] 3 19:24:04 Vitamin D deficiency 55547071 Active 2022 YOCASTA CHAMBERS PA-C [address], [address], [place], [address], [facility] 3 19:24:12 Insomnia co-occurren t and due to medical condition 1582622222817 5 Active 2022 VINOD DAVISC [address], [address], [place], [address], [facility] 3 19:24:25 Hypomagnese arlen 260062910 Active 2022 YOCASTA CHAMBERS PA-C [address], [address], [place], [address], [facility] 3 19:30:39 Intermitten t allergic asthma 4630396402942 9104 Active 2022 YOCASTA CHAMBERS PA-C [address], [address], [place], [address], [facility] 3 19:31:17 Coronary artery bypass grafts x 4 Active 2022 YOCASTA CHAMBERS PA-C [address], [address], [place], [address], [facility] 3 19:31:29 Type 2 diabetes mellitus 25394187 Active 2022 Nicci Womack MD [address], [address], [place], [address], [facility] 3 16:26:34 Asthenia 19768396 Active 2022 Nicci Womack MD [address], [address], [place], [address], [facility] 3 16:37:01 Problem Notes None recorded. Medical Equipment None Reported. Allergies Allergen ID Allergen Name Allergen Category Reaction Reaction Severity Criticality Documentation Date Start Date Code Code System Note Provider Name and Address Organization Details Recorded Time 20873 Bactrim medicatio n hives Not available Not available 08/01/2022 85383 9 RxNorm ISAIAS DAVIS-C [address], [address], [place], [address], [facility] 3 17:55:34 02800 oxycodone medicatio n dyspnea itching Not available Not available Not available 08/01/2022 7804 RxNorm ISAIAS DAVIS-C [address], [address], [place], [address], [facility] 3 17:56:03 58855 codeine medicatio n Not available Not available Not available 08/01/2022 2670 RxNorm amxie ty ISAIAS DAVIS-Sheri [address], [address], [place], [address], [facility] 3 17:56:14 [address]8814 cortisone medicatio n itching Not available Not available 08/01/2022 2878 RxNorm ISAIAS DAVIS-C [address], [address], [place], [address], [facility] 3 17:56:28 21757 doxycycli ne Not available itching Not available Not available 08/01/2022 3640 RxNorm ISAIAS DAVIS-C [address], [address], [place], [address], [facility] 3 17:56:41 39365 morphine medicatio n itching Not available Not available 08/01/2022 7052 RxNorm ISAIAS DAVIS-C [address], [address], [place], [address], [facility] 3 17:56:51 50555 Product containin g penicilli n (product) medicatio n rash Not available Not available 08/01/2022 87812 8001 SNOMED YOCASTA CHAMBERS PA-C [address], [place], [address], [facility] 3 17:57:04 52001 tramadol medicatio n Not available Not available Not available 08/01/2022 75378 RxNorm anxie ty YOCASTA CHAMBERS PA-C [address] [facility], [address], [place], [address], [facility] 3 17:57:18 Vitals Date Recorded Body height Body mass index (BMI) Body weight Heart rate Respiratory rate Body temperature Oxygen saturation Oxygen saturation in Arterial blood by Pulse oximetry Systolic blood pressure Diastolic blood pressure Provider Name and Address Organization Details Last Updated DateTime 3 154.94 cm 25.5 kg/m2 92780.9 7 g 73 /min 17 /min 98.2 [degF] 100 % 100 % 146 mm[Hg] 59 mm[Hg] YOCASTA CHAMBERS PA-C [address], [place], [address], [facility] 3 17:46:47 Date Recorded Body height Heart rate Respiratory rate Body temperature Oxygen saturation Oxygen saturation in Arterial blood by Pulse oximetry Systolic blood pressure Diastolic blood pressure Provider Name and Address Organization Details Last Updated DateTime 3 154.94 cm 82 /min 16 /min 98.1 [degF] 97 % 97 % 127 mm[Hg] 78 mm[Hg] RAYMUNDO KIRK NP [address], [place], [address], [facility] 3 11:57:47 Date Recorded Body height Heart rate Respiratory rate Body temperature Oxygen saturation Oxygen saturation in Arterial blood by Pulse oximetry Systolic blood pressure Diastolic blood pressure Provider Name and Address Organization Details Last Updated DateTime 3 154.94 cm 80 /min 16 /min 98.4 [degF] 96 % 96 % 133 mm[Hg] 70 mm[Hg] RAYMUNDO KIRK NP [address], [place], [address], [facility] 3 14:33:50 Date Recorded Body height Body mass index (BMI) Body weight Heart rate Respiratory rate Body temperature Oxygen saturation Oxygen saturation in Arterial blood by Pulse oximetry Systolic blood pressure Diastolic blood pressure Provider Name and Address Organization Details Last Updated DateTime 3 154.94 cm 23.1 kg/m2 34051.2 7 g 84 /min 18 /min 97.9 [degF] 97 % 97 % 116 mm[Hg] 62 mm[Hg] Nicci Womack MD [address] [facility], [facility] [address], [place], [address], [facility] 3 16:02:43 Date Recorded Body height Heart rate Respiratory rate Body temperature Oxygen saturation Oxygen saturation in Arterial blood by Pulse oximetry Body mass index (BMI) Body weight Systolic blood pressure Diastolic blood pressure Provider Name and Address Organization Details Last Updated DateTime 3 154.94 cm 88 /min 16 /min 97.3 [degF] 98 % 98 % 22.7 kg/m2 79441.5 2 g 131 mm[Hg] 78 mm[Hg] RAYMUNDO KIRK NP [address] [facility], [facility] [address], [place], [address], [facility] 3 12:42:06 Social History Question Answer Notes LastModified by Organizat ion Details LastModified Time Tobacco Smoking Status Never Smoker YOCASTA CHAMBERS PA-C [address] [facility] [address], [place], [address], [facility] 08/01/2022 19:32:55 Do You Have An Advance Directive? Yes [email or web address] Information not available 08/03/2022 What Is Your Code Status? Full Code [email or web address] Information not available 08/01/2022 Where Do You Live? [facility] Bedroom On 2nd Floor, Railing Only On Left Information not available 08/07/2022 Legal Guardian? No [email or web address] Information not available 08/01/2022 Do You Have A Medical Power Of Supply Cataloguer? Yes Not Invoked Information not available 08/07/2022 What Was The Date Of Your Most Recent Tobacco Screening? 08/01/2022 [email or web address] Information not available 08/01/2022 Do You Have An Out Of Hospital DNR? No [email or web address] Information not available 08/01/2022 Has Tobacco Cessation Counseling Been Provided? No N/A As Pt Is A Non-smoker Information not available 08/07/2022 Sex: Unknown Functional Status Question Answer Note LastModified by Organizat ion Details LastModified Time Do you use any illicit or recreational drugs? No Information not available 08/01/2022 Do you or have you ever used any other forms of tobacco or nicotine? No [email or web address] Information not available 08/01/2022 What is your level of alcohol consumption? None [email or web address] Information not available 08/01/2022 Mental Status None recorded. Family History Relationship Description Onset Age of this Age Resolved Age Notes LastModified by Organization Details LastModified Time Father Coronary arterioscler osis 75 [email or web address] Not available 2022 19:18:27 Mother Coronary arterioscler [email or web address] 72 Not available 2022 19:18:27 Medical History No medical history recorded. Gynecological HistoryNo gynecological history recorded. Obstetrics History GPAL:G 0 P 0 0 0 0 Immunizations Vaccine Type Date Status Note Provider Nam e and Address Organization Details Recorded Time SARS-COV-2 (COVID-19) vaccine, UNSPECIFIED 1 completed Selma Hernandez [facility] 07/31/2022 16:13:00 SARS-COV-2 (COVID-19) vaccine, UNSPECIFIED 1 completed Selma Hernandez [facility] 07/31/2022 16:13:09 Influenza, adjuvanted, quadrivalent, PF 2 [facility] 13:05:32 Hep B, unspecified formulation 8 completed Selma Hernandez [facility] 07/21/2023 12:52:12 Tdap 8 completed Selma Hernandez [facility] 07/21/2023 12:52:31 Td(adult) unspecified formulation 5 completed Selma Hernandez [facility] 07/21/2023 12:52:50 Td(adult) unspecified formulation 0 completed Selma Hernandez [facility] 07/21/2023 12:52:59 Pneumococcal conjugate PCV 13 9 completed Selma Hernandez [facility] 07/21/2023 12:53:54 pneumococcal polysaccharide PPV23 2 completed Selma Hernandez [facility] 07/21/2023 12:54:22 pneumococcal polysaccharide PPV23 1 completed Selma Hernandez [facility] 07/21/2023 12:54:30 influenza, unspecified formulation 3 completed Selma Hernandez [facility] 07/21/2023 12:54:54 zoster, unspecified formulation 6 completed Selma [facility] 07/21/2023 12:55:18 zoster, unspecified formulation 0 completed Selma Hernandez [facility] 07/21/2023 12:55:31 Past Encounters Encounter ID Performer Location Encounter Start Date Encounter Closed Date Diagnosis/Indication Diagnosis SNOMED-CT Code Diagnosis ICD10 Code Diagnosis Note [id number] JEREMI DAVIS [address] [place] [address] 08/01/2022 17:43:19 08/04/2022 08:34:27 Coronary arteriosclerosis 80248676 I25.10 now s/p 4-vessel CABGASA, BB, statin, PlavixMoni tor surgical incision sites - presently no evidence of infectionP t HAS CT surg f/u with Dr. Andre Pierre 08/10/22 at [facility] (listed as being at 0130 so either it's supposed to be 1130 or 1330 - need to clarify appointmen t time) [phone] 50Pt NEEDS cards f/u with Dr. Estuardo Rodríguez in 2-4 weeks [phone] 84Pt needs f/u cardiac rehab at [facility] after d/c - [id number] tive spirometer at bedside Abdominal pain 43277690 R10.9 postprandi alHas meds in placeattri buted to celiac artery stenosis but does NOT have mesenteric artery stenosis Essential hypertension 18301342 I10 Monitor BPs and adjust meds prn Dyslipidemia 214948891 E 78.5 statin Peripheral neuropathy due to type 2 diabetes mellitus 9273282647 107 E11.42 monitor sugars and adjust meds prnOff MADY for renal protection - was d/c'd during antecedent hospitaliz ationTight glycemic control necessary to promote wound healingon duloxetine with prn wayne Intermitte nt allergic asthma 2132931117 1667521 J45.20 prn Albuterol- consider adding spacer to maximize med delivery Insomnia c o-occurrent and due to medical condition 2717513805 9105 G47.01 Trazodonef /u prn Hypomagnesemia 610509657 E83.42 supplement d/c'd PTAupdate level with next lab draw Chronic constipation 236 431939 K59.09 scheduled and prn bowel meds Anemia 324151146 D64.9 acute-on-c hronic post-opdoe s not appear she required a transfusio nmonitor CBC Seasonal allergy 6616632 04 J30.2 Claritin (weakest in that class - consider Maricel if needs something stronger) Stenosis o f celiac artery 1398167260 2358370 I77.4 seen by vascular surg-f/u prn Unintentio nal weight loss 774085407 R63.4 RD consultMon itor weights Vitamin D deficiency 347 45265 E55.9 repletingo utpatient f/u with PCP Hyponatremia 37162428 E8 7.1 had w/u prior to admitfollo w divalents Orthostati c hypotension 78754303 I95.1 BB decreasedf /u prn At moderat e risk for fall 9055010564 67166175 Z91.89 PT/OT [id number] JEREMIAH MCINTOSH ORQUIDEA [address] [place] [address] [place] [facility] [address] 08/03/2022 11:47:26 08/05/2022 17:19:50 Coronary arteriosclerosis 08080444 I25.10 now s/p 4-vessel CABGmetopr olol er 12.5 mg dailyasa 81 mg dailyatorv astatin 80 mg dailyplavi x 75 mg dailytylen ol 975 mg [id number] r surgical incision sites - presently no evidence of infectionP t HAS CT surg f/u with Dr. Andre Pierre 08/10/22 at [facility] (listed as being at 0130 so either it's supposed to be 1130 or 1330 - need to clarify appointmen t time) [phone] 50Pt NEEDS cards f/u with Dr. Estuardo Rodríguez in 2-4 weeks [phone] 84Pt needs f/u cardiac rehab at [facility] after d/c - [id number] tive spirometer at bedside Essential hypertension 89001819 I10 Monitor BPs and adjust meds prn Dyslipidemia 129813632 E 78.5 atorvastat in 80 mg daily Peripheral neuropathy due to type 2 diabetes mellitus 7940859615 107 E11.42 monitor sugars and adjust meds prnOff MADY for renal protection - was d/c'd during antecedent hospitaliz ationTight glycemic control necessary to promote wound healingdul oxatine 20 mg dailygabap entin 600 mg q6hr prn Intermitte nt allergic asthma 5832510963 9666452 J45.20 prn Albuterol- consider adding spacer to maximize med delivery Insomnia c o-occurrent and due to medical condition 8706819693 9105 G47.01 Trazodone 100 mg hsf/u prn Hypomagnesemia 295840710 E83.42 supplement d/c'd PTAupdate level with next lab draw Chronic constipation 236 650693 K59.09 senna 17.2 hscolace dailyprn bowel meds Anemia 697430071 D64.9 acute-on-c hronic post-opdoe s not appear she required a transfusio nmonitor CBC Seasonal allergy 3994035 04 J30.2 Claritin 10- mg prn Stenosis o f celiac artery 2684562313 6072305 I77.4 seen by vascular surg-f/u prn Unintentio nal weight loss 297845994 R63.4 RD consultMon itor weights Vitamin D deficiency 347 36030 E55.9 D3 1000 twice weeklyoutp atient f/u with PCP Hyponatremia 21876641 E8 7.1 had w/u prior to admitfollo w divalents Orthostati c hypotension 40250824 I95.1 BB decreasedf /u prn At moderat e risk for fall 6416488704 99183089 Z91.89 PT/OT Type 2 lou betes mellitus with peripheral angiopathy 077889952 E11.51 metformin 1000 mg bidlispro sliding scale bidpoc glucose bid [id number] JEREMIAH MCINTOSH [address] [place] [address] 08/05/2022 14:11:45 08/10/2022 14:23:48 Coronary arteriosclerosis 32537951 I25.10 now s/p 4-vessel CABGmetopr olol er 12.5 mg dailyasa 81 mg dailyatorv astatin 80 mg dailyplavi x 75 mg dailytylen ol 975 mg [id number] r surgical incision sites - presently no evidence of infectionP t HAS CT surg f/u with Dr. Andre Pierre 08/10/22 at [facility] (listed as being at 0130 so either it's supposed to be 1130 or 1330 - need to clarify appointmen t time) [phone] 50Pt NEEDS cards f/u with Dr. Estuardo Rodríguez in 2-4 weeks [phone] 84Pt needs f/u cardiac rehab at [facility] after d/c - [phone] [id number] tive spirometer at bedside Peripheral neuropathy due to type 2 diabetes mellitus 8909084590 107 E11.42 monitor sugars and adjust meds prnOff MADY for renal protection - was d/c'd during antecedent hospitaliz ationTight glycemic control necessary to promote wound healingdul oxatine 20 mg dailygabap entin 600 mg q6hr prn [id number] MD DELMIS Castrejon [address] [place] [address] 08/07/2022 15:12:17 08/10/2022 14:43:19 Coronary arteriosclerosis 99331309 I25.10 S/P CABG x4, recovering well.Incis ions clean and dry and almost back to baseline function.C ontinue metoprolol ER 12.5 mg qd, ASA 81 mg qd, atorvastat in 80 mg qd, and plavix 75 mg qd (for 1 yr).Contin ue APAP 975 mg q 6 hrs scheduled for incisional pain.Salma nue I beau.F/U with Dr. Andre Pierre, CT surgery, 08/10/ at 1:30 PM, [phone] 50Pt needs cards f/u with Dr. Estuardo Rodríguez in 2-4 weeks [phone] 84Pt needs f/u cardiac rehab at [facility] after d/c - x [phone] Essential hypertension 83590950 I10 Remains in good control on only metoprolol 12.5 mg.Isosorb kiet, lisinopril , and HCTZ were d/c'd inpt due to low BPs.Monito r BPs and adjust meds prn. Dyslipidemia 027607245 E 78.49 Continue atorvastat in 80 mg qd.Monitor labs as outpt. Intermitte nt allergic asthma 2713907676 6105392 J45.20 No current sxs.Contin ue albuterol 2 puffs q 6 hrs prn.Monito r resp. status. Insomnia c o-occurrent and due to medical condition 4528322140 9105 G47.01 Continue trazodone 100 mg qhsMonitor sleep patterns. Chronic constipation 236 348990 K59.09 Continue bowel meds as ordered.Mo nitor bowel function. Anemia 797422644 D64.89 Acute on chronic, from surgical blood loss.Remai toya stableMoni tor labs.Trans fuse for hgb <7 Seasonal allergy 8380727 04 J30.2 Continue loratadine 10 mg qd prnMonitor sxs. Stenosis o f celiac artery 4199307420 4793308 I77.4 F/U with vascular surg as planned Unintentio nal weight loss 025278309 R63.4 Reportedly lost 100# without trying.But remaining stable at this timeDietic nain consultMon itor weights Vitamin D deficiency 347 97632 E56.8 Continue D3 1000 IU twice weeklyMoni tor levels as outpt. Hyponatremia 23763308 E8 7.1 Resolved inpt.Monit or labs Type 2 lou betes mellitus 27433899 E11.21 Home sugars much improved since wt. [...] and pre-supper . Use SSI prn. Asthenia 99245712 R53.1 Was deconditio giovanni, but much improved.C ontinue PT/OT for strengthen ing, balance, gait training, safety and function.C ontinue fall precaution s.Monitor for safety.Helga n for d/c 08/11 Abdominal pain 22733377 R10.816 R11.0 Having trouble eating due to nausea and abd. pain.Will schedule carafate QID (AC and qhs) and Zofran 4 mg TID.Contin ue omeprazole 40 mg qd.Monitor sxs.Though t to possibly be mesenteric ischemia. [id number] JEREMIAH MCINTOSH [address] [place] [address] 08/10/2022 12:41:32 08/12/2022 14:50:55 Coronary arteriosclerosis 21835402 I25.10 now s/p 4-vessel CABGmetopr olol er 12.5 mg dailyasa 81 mg dailyatorv astatin 80 mg dailyplavi x 75 mg dailytylen ol 975 mg [id number] r surgical incision sites - presently no evidence of infectionP t HAS CT surg f/u with Dr. Andre Pierre 08/10/22 at [facility] (listed as being at 0130 so either it's supposed to be 1130 or 1330 - need to clarify appointmen t time) [phone] 50Pt NEEDS cards f/u with Dr. Estuardo Rodríguez in 2-4 weeks [phone] 84Pt needs f/u cardiac rehab at [facility] after d/c - [id number] tive spirometer at bedside Essential hypertension 81352053 I10 Monitor BPs and adjust meds prn Dyslipidemia 551913269 E 78.5 atorvastat in 80 mg daily Peripheral neuropathy due to type 2 diabetes mellitus 7688413863 107 E11.42 monitor sugars and adjust meds prnOff MADY for renal protection - was d/c'd during antecedent hospitaliz ationTight glycemic control necessary to promote wound healingdul oxatine 20 mg dailygabap entin 600 mg q6hr prn Intermitte nt allergic asthma 2713428437 5501480 J45.20 prn Albuterol- consider adding spacer to maximize med delivery Insomnia c o-occurrent and due to medical condition 5584065458 9105 G47.01 Trazodone 100 mg hsf/u prn Hypomagnesemia 167516045 E83.42 supplement d/c'd PTAupdate level with next lab draw Chronic constipation 236 233312 K59.09 senna 17.2 hscolace dailyprn bowel meds Anemia 940720721 D64.9 acute-on-c hronic post-opdoe s not appear she required a transfusio nmonitor CBC Seasonal allergy 9823556 04 J30.2 Claritin 10- mg prn Stenosis o f celiac artery 5733153487 8549577 I77.4 seen by vascular surg-f/u prn Unintentio nal weight loss 493689912 R63.4 RD consultMon itor weights Vitamin D deficiency 347 00042 E55.9 D3 1000 twice weeklyoutp atient f/u with PCP Hyponatremia 51050831 E8 7.1 had w/u prior to admitfollo w divalents Orthostati c hypotension 85253601 I95.1 BB decreasedf /u prn At moderat e risk for fall 5382350065 70013174 Z91.89 PT/OT Type 2 lou betes mellitus with peripheral angiopathy 520369314 E11.51 metformin 1000 mg bidlispro sliding scale bidpoc glucose bid Health Concerns Section Related Observation LastModified by Organization Detai ls LastModified Time None Recorded Concern Status LastModified by Organization Details LastModified Time None Recorded Advance Directives Directive Y: Payers Encounter Date Sequence Insurance Name Policy Number Policy Swartz Covered Member ID Swartz Member ID Guarantor Name 08/01/2022 1 [facility] - DOS PRIOR TO 2022 - DUAL ELIGIBLE (MEDICARE REPLACEMENT/ADV ANTAGE - HMO) Sonia Marcano [id number] Sonia Marcano 08/03/2022 1 [facility] - DOS PRIOR TO 2022 - DUAL ELIGIBLE (MEDICARE REPLACEMENT/ADV ANTAGE - HMO) Sonia Marcano [id number] Sonia Marcano 08/05/2022 1 [facility] - DOS PRIOR TO 2022 - DUAL ELIGIBLE (MEDICARE REPLACEMENT/ADV ANTAGE - HMO) Sonia Marcano [id number] Sonia Marcano 08/07/2022 1 [facility] - DOS PRIOR TO 2022 - DUAL ELIGIBLE (MEDICARE REPLACEMENT/ADV ANTAGE - HMO) Sonia Marcano [id number] Sonia Marcano 08/10/2022 1 [facility] - DOS PRIOR TO 2022 - DUAL ELIGIBLE (MEDICARE REPLACEMENT/ADV ANTAGE - HMO) Sonia Marcano [id number] Sonia Marcano Notes Date Note Type Note Provider Name and Address Organization Details Recorded Time 3 text/html Pt seen today for initial review.Seen with Sp-speaking staff 66-y/o F admitted from [facility] where she was hospitalized 07/20-07/31/22 for [...] subacute rehab pt PPI use: on since NURSE CLINICAL Meds: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 No N/V/D. YOCASTA CHAMBERS PA-C [address] [facility], [address], [place], [address], [facility] 08/01/2022 19:49:54 3 text/html seen today for acute rounding visit-66-y/o F admitted from [facility] where she was hospitalized 07/20-07/31/22 for [...] clean dry healing well, yonis intact RAYMUNDO KIRK NP [address] [facility], [address], [place], [address], [facility] 08/03/2022 15:37:40 3 text/html seen today for acute rounding visit, CAOx3 sitting up in bed, lungs clear, chest incision healing well, medial knee incisions healing well no s/s infection yonis intact RAYMUNDO KIRK NP [address] [facility], [address], [place], [address], [facility] 08/05/2022 14:36:03 3 text/html This is [...] and seasonal allergies/allergic asthma. Nicci Womack MD [address] [place] [address], [address], [place], [address], [facility] 08/07/2022 18:29:32 3 text/html seen today for [...] to be removed RAYMUNDO KIRK NP [address] [facility], [address], [place], [address], [facility] [place] 08/10/2022 12:46:34 OBGyn Episode No OBEpisode recorded.
--- OUTSIDE RECORDS SUMMARY | 2024-09-27 12:52 | XMS_ITS | Encounter Summary ---
Author Organization [employer] Address [address] [facility] 7t [place] [address] Care Team Providers Care Certified Tumor Registrar Name Role Phone Shawna Gamble MD Primary Care Provider [phone] Reason for Visit * Reason Comments Med Change Request Encounter Details Date Type Department Care Team ([facility] Contact Info) Description 02/10/2024 Refill [facility] MEDICINE [address] [place] [address] Anisha Mc MD 230 [place], [place] [phone] Social History Tobacco Use Types Packs/Day Years [...] documented as of this encounter Care Teams Certified Tumor Registrar Relationship Specialty Start Date End Date Shawna Gamble MD [address] [place] [id number] PCP - General Family Medicine 05/13/22 documented as of this encounter
--- OUTSIDE RECORDS SUMMARY | 2024-09-27 12:52 | XMS_ITS | Encounter Summary ---
Author Organization [employer] Address [address] [facility] 7t [place] [address] Care Team Providers Care Tile Mechanic Name Role Phone Shawna Gamble MD Primary Care Provider [phone] Encounter Details Date Type Department Care Team (Late st Contact Info) Description 03/22/2023 Abstract [facility] MEDICINE 230 [place], [place] [phone] Shawna Gamble MD 230 [place], [place] [phone] Social History Tobacco Use Types Packs/Day Years [...] on filedocumented in this encounter Care Teams Tile Mechanic Relationship Specialty Start Date End Date Shawna Gamble MD [address] [place] [id number] PCP - General Family Medicine 05/13/22 documented as of this encounter
--- OUTSIDE RECORDS SUMMARY | 2024-09-27 12:52 | XMS_ITS | Encounter Summary ---
Author Organization [employer] Address [address] [facility] 7t [place] [address] Care Team Providers Care Parachute Packer Name Role Phone Shawna Gamble MD Primary Care Provider [phone] Reason for Visit * Reason Comments Med Refill Encounter Details Date Type Department Care Team ([facility] Contact Info) Description 02/18/2023 Refill [facility] MEDICINE [address] [place] [address] Shawna Gamble MD 230 [place] [address] Primary insomnia Social History Tobacco Use Types [...] sleep documented in this encounter Care Teams Parachute Packer Relationship Specialty Start Date End Date Shawna Gamble MD [address] [place] [address] PCP - General Family Medicine 05/13/22 documented as of this encounter
--- OUTSIDE RECORDS SUMMARY | 2024-09-27 12:52 | XMS_ITS | Encounter Summary ---
Author Organization [employer] Address [address] [place] [address] 7t [place] [address] Care Team Providers Care Motor Runner Name Role Phone Shawna Gamble MD Primary Care Provider [phone] Reason for Visit * Reason Onset Date Comments requesting script 05/13/2022 Encounter Details Date Type Department Care Team ([facility] st Contact Info) Description 05/13/2022 Telephone [facility] MEDICINE 230 [place] [address] Makenna Trinidad MD requesting script Social History [...] PM EST TC place to pt at [phone] via Tivity Yarder Operator. Pt states she's in need of body [...] send to medline Please contact pt at [phone] documented in this encounter Plan of Treatment Not on file documented as of this encounter Visit Diagnoses Not on filedocumented in this encounter Care Teams Motor Runner Relationship Specialty Start Date End Date Shawna Gamble MD [address] [place] [address] PCP - General Family Medicine 05/13/22 documented as of this encounter
--- OUTSIDE RECORDS SUMMARY | 2024-09-27 12:52 | XMS_ITS | Encounter Summary ---
Author Organization [employer] Address [address] [facility] 7t [place] [address] Care Team Providers Care Ski Molder Name Role Phone Shawna Gamble MD Primary Care Provider [phone] Encounter Details Date Type Department Care Team (Late st Contact Info) Description 12/01/2023 Orders Only [facility] MEDICINE 230 [place], [place] [phone] Shawna Gamble MD 230 [place] [address] Closed fracture of medial portion of left [...] documented as of this encounter Care Teams Ski Molder Relationship Specialty Start Date End Date Shawna Gamble MD 230 [place] [address] PCP - General Family Medicine 05/13/22 documented as of this encounter
--- OUTSIDE RECORDS SUMMARY | 2024-09-27 12:52 | XMS_ITS | Encounter Summary ---
Author Organization [employer] Address [address] [place] [address] 7t [place] [address] Care Team Providers Care Card Sorter Name Role Phone Makenna Trinidad MD Primary Care Provider Shawna Hand MD Primary Care Provider [phone] Encounter Details Date Type Department Care Team (Late st Contact Info) Description 04/20/[address] [facility] 230 [place] [address] Dental, Provider, DDS Social History Tobacco Use [...] on filedocumented in this encounter Care Teams Card Sorter Relationship Specialty Start Date End Date Makenna Trinidad MD PCP - General Family Medicine 03/24/19 05/12/22 Shawna Gamble MD [address] [place] [id number] PCP - General Family Medicine 05/13/22 documented as of this encounter
--- OUTSIDE RECORDS SUMMARY | 2024-09-27 12:52 | XMS_ITS | Encounter Summary ---
Author Organization [employer] Address [address] [place] [address] 7t [place] [address] Care Team Providers Care Security Consultant Name Role Phone Shawna Gamble MD Primary Care Provider [phone] Reason for Visit * Reason Onset Date Comments Durable Medical Equipment 07/03/2022 Encounter Details Date Type Department Care Team ([facility] st Contact Info) Description 07/03/2022 Telephone [facility] MEDICINE 230 [place] [address] Shawna Gamble MD 230 [place] [address] Durable Medical Equipment Social History Tobacco Use [...] 07/15/2022 2:22 PM EST Form received from [employer] for bed pads for signature * Telephone Encounter - Jim Armstrong - 07/03/2022 3:11 PM EST Tc from pt requesting a script for re washable bed pads needs script to be send over to medline. Ptalso states needs a letter on why pt is needing re washable bed pads. documented in this encounter Plan of Treatment Not on file documented as of this encounter Visit Diagnoses Not on filedocumented in this encounter Care Teams Security Consultant Relationship Specialty Start Date End Date Shawna Gamble MD [address] [place] [address] PCP - General Family Medicine 05/13/22 documented as of this encounter
--- OUTSIDE RECORDS SUMMARY | 2024-09-27 12:52 | XMS_ITS | Encounter Summary ---
Author Organization [employer] Address [address] [place] [address] 7t [place] [address] Care Team Providers Care Substance Abuse Rn Name Role Phone Shawna Gamble MD Primary Care Provider [phone] Encounter Details Date Type Department Care Team ([facility] st Contact Info) Description 11/25/2022 Telephone [facility] MEDICINE 230 [place], [place] [phone] Shawna Gamble MD 230 [place], [place] [phone] Social History Tobacco Use Types Packs/Day Years [...] Notes * Telephone Encounter - Maria T Lev - 11/25/2022 12:04 PM EDT Tc from edgardo with S requesting status on orders for VNA services. Please contact edgardo at [phone] Fax number: [phone] documented in this encounter Plan of Treatment Not on file documented as of this encounter Visit Diagnoses Not on filedocumented in this encounter Care Teams Substance Abuse Rn Relationship Specialty Start Date End Date Shawna Gamble MD 230 [place] [address] PCP - General Family Medicine 05/13/22 documented as of this encounter
--- OUTSIDE RECORDS SUMMARY | 2024-09-27 12:52 | XMS_ITS | Encounter Summary ---
Author Organization [employer] Address [address] [facility] 7t [place] [address] Care Team Providers Care Piped Pocket Machine Operator Name Role Phone Shawna Gamble MD Primary Care Provider [phone] Encounter Details Date Type Department Care Team (Late st Contact Info) Description 09/27/2023 Orders Only [facility] MEDICINE 230 [place] [address] Provider, MD Shahrzad Social History Tobacco Use Types Packs/Day Years [...] * Hm Colonoscopy (10/11/2020 9:13 AM EDT) us Historical Provider HEALTH MAINTENANCE Final Result documented in this encounter Visit Diagnoses Not on filedocumented in this encounter Care Teams Piped Pocket Machine Operator Relationship Specialty Start Date End Date Shawna Gamble MD [address] [place] [address] PCP - General Family Medicine 05/13/22 documented as of this encounter
--- OUTSIDE RECORDS SUMMARY | 2024-09-27 12:52 | XMS_ITS | Encounter Summary ---
Author Organization [employer] Address [address] [facility] 7t [place] [address] Care Team Providers Care Plastics Patternmaker Name Role Phone Shawna Gamble MD Primary Care Provider [phone] Reason for Visit * Reason Comments Med Refill Encounter Details Date Type Department Care Team ([facility] Contact Info) Description 02/26/2023 Refill [facility] MEDICINE 230 [place] [address] Shawna Gamble MD [address] [place] [address] Primary insomnia Social History Tobacco Use Types [...] sleep documented in this encounter Care Teams Plastics Patternmaker Relationship Specialty Start Date End Date Shawna Gamble MD [address] [place] [address] PCP - General Family Medicine 05/13/22 documented as of this encounter
--- OUTSIDE RECORDS SUMMARY | 2024-09-27 12:52 | XMS_ITS | Encounter Summary ---
Author Organization [employer] Address [address] [place] [address] [address] [place] [address] Care Team Providers Care Instructional Coordinator Name Role Phone Shawna Gamble MD Primary Care Provider [phone] Encounter Details Date Type Department Care Team (Late st Contact Info) Description 07/10/2022 Orders Only [facility] [address] [place], [place] [phone] hSawna Gamble MD [address] [place], [place] [phone] Hypomagnesemia (Primary Dx) Social History Tobacco Use [...] EDT) Magnesium 1.6 1.6 - 2.6 mg/dL [facility] 12/17/2022 1:12 PM EDT 12/17/2022 1:20 PM EDT us Generic External Data Provider LAB BLOOD ORDERAB LES Final Result [facility] [address] [place] [phone] * (ABNORMAL) Basic Metabolic Panel (12/17/2022 1:12 PM EDT) Sodium 138 135 - 145 mmol/L [facility] Potassium 3.6 3.3 - 5.1 mmol/L [facility] Chloride 101 96 - 108 mmol/L [facility] Carbon Dioxide 24 22 - 29 mmol/L [facility] Anion Gap 17 12 - 20 [facility] Urea Nitrogen (BUN) 12 9 - 16 mg/dL [facility] Creatinine, Serum 0.75 0.5 - 1.4 mg/dL [facility] Estimated Glomerular Filt Rate >60 [facility] Comment:NOTE: For -Am erican individuals, multiply the result by 1.210.Chronic Kidney Disease: Estimated GFR < 60 mL/min/[id number] Kidney Disease: Estimated GFR < 15 mL/min/1.73m2 Glucose 118(H) 60 - 115 mg/dL [facility] Calcium 10.2 8.4 - 10.2 mg/dL [facility] 12/17/2022 1:12 PM EDT 12/17/2022 1:20 PM EDT [facility] External Provider LAB BLO OD ORDERABLES Final Result Performing Organization Address [facility] [place] de Phone Number [facility] [address] [place] [phone] [phone] * Vitamin D, 25-Hydroxy, Total, Immunoassay (12/09/2022 12:14 PM EDT) Vitamin D 25-OH Total 57.1 >30 ng/mL [facility] Comment:Health Based Referen ce Values*< 20 ng/mL Nrtyfnaol10-86 ng/mL Insufficient> 30 ng/mL Sufficient*Norma TREVINO. N Engl J Med. 2007;357:266-280Care must [...] ORDERAB LES Final Result Performing Organization Address [facility] Co de Phone Number [facility] [address] [place] [address] [phone] * (ABNORMAL) Magnesium (12/09/2022 12:14 PM EDT) Magnesium 1.5(L) 1.6 - 2.6 mg/dL [facility] 12/09/2022 12:1 4 PM EDT 12/09/2022 12:14 PM EDT Generic External Data Provider LAB BLOOD ORDERAB LES Final Result Performing Organization Address [facility] [place]/[facility]/ZIP Co de Phone Number [facility] [address] [place] [address] [phone] * Phosphate (As Phosphorus) (12/09/2022 12:14 PM EDT) Phosphorus 3.5 2.7 - 4.5 mg/dL [facility] 12/09/2022 12:1 4 PM EDT 12/09/2022 12:14 PM EDT Generic External Data Provider LAB BLOOD ORDERAB LES Final Result Performing Organization Address [facility] [place] Co de Phone Number [facility] [address] [place] [address] [phone] * (ABNORMAL) Basic Metabolic Panel (12/09/2022 12:14 PM EDT) Sodium 134(L) 135 - 145 mmol/L [facility] Potassium 4.6 3.3 - 5.1 mmol/L [facility] Chloride 99 96 - 108 mmol/L [facility] Carbon Dioxide 31(H) 22 - 29 mmol/L [facility] Anion Gap 9(L) 12 - 20 [facility] Urea Nitrogen (BUN) 15 9 - 16 mg/dL [facility] Creatinine, Serum 0.87 0.5 - 1.4 mg/dL [facility] Estimated Glomerular Filt Rate >60 [facility] Comment:NOTE: For -Am erican individuals, multiply the result by 1.210.Chronic Kidney Disease: Estimated GFR < 60 mL/min/1.31j3Kszrid Kidney Disease: Estimated GFR < 15 mL/min/1.73m2 Glucose 273(H) 60 - 115 mg/dL [facility] Calcium 9.4 8.4 - 10.2 mg/dL [facility] 12/09/2022 12:1 4 PM EDT 12/09/2022 12:14 PM EDT [facility] External Provider LAB BLO OD ORDERABLES Final Result Performing Organization Address [facility] de Phone Number [facility] [address] [place] [phone] * (ABNORMAL) Magnesium (11/30/2022 4:06 PM EDT) Pathologist [facility] Magnesium 1.3(LL) 1.6 - 2.6 mg/dL [facility] Comment:Critical value for t est(s): MAGS Results called to and readback by: DR SALMON Person calling:[employer] Date: [id number] 11/30/2022 4:06 PM EDT 11/30/2022 5:44 PM EDT [facility] External Provider LAB BLO OD ORDERABLES Final Result Performing Organization Address [facility] Phone Number [facility] [address] [place] [phone] * TSH (11/30/2022 4:06 PM EDT) [facility] Thyroid Stimulating Hormone 1.92 0.32 - 4.0 uIU/mL [facility] Comment:TSH 3rd Generation ( [facility]) 11/30/2022 4:06 PM EDT 11/30/2022 5:44 PM EDT [facility] External Provider LAB BLO OD ORDERABLES Final Result Performing Organization Address [facility] de Phone Number [facility] [address] [place] [phone] * (ABNORMAL) CBC auto differential (11/30/2022 4:06 PM EDT) [facility] White Blood Count 7.3 4.8 - 10.8 X10*3/uL [facility] Red Blood Count 3.62(L) 4.20 - 5.50 X10*6/uL [facility] Hemoglobin 10.4(L) 12.0 - 16.0 g/dl [facility] Hematocrit 32.0(L) 37.0 - 47.0 % [facility] Mean Corpuscular Volume 88.4 80.0 - 98.0 fL [facility] Mean Corpuscular Hemoglobin 28.7 27.0 - 33.0 pg [facility] Mean Corpuscular HGB Conc 32.5 31.0 - 35.0 g/dl [facility] Red Cell Distribution Width 19.0(H) 11.0 - 16.0 % [facility] Platelet Count 277 160 - 400 X10*3/uL [facility] Mean Platelet Volume 11.2 9.4 - 12.3 fL [facility] Neutrophils Percent Auto 49.2 45 - 73 % [facility] Imm Gran Pct Auto 0.3 0.0 - 0.4 % [facility] Lymphocytes Percent Auto 36.0 20 - 40 % [facility] Monocytes Percent Auto 11.4(H) 2 - 11 % [facility] Eosinophils Percent Auto 2.1 0 - 4 % [facility] Basophils Percent Auto 1.0 0 - 2 % [facility] NRBC Pct Auto 0.0 0.0 - 0.2 /100WBC [facility] Neutrophils Absolute Auto 3.6 2.0 - 8.3 x10*3/uL [facility] Imm Gran Abs Auto 0.02 0.00 - 0.03 X10*3/uL [facility] Lymphocytes Absolute Auto 2.6 1.2 - 4.9 X10*3/uL [facility] Monocytes Absolute Auto 0.8 0.1 - 1.2 X10*3/uL [facility] Eosinophils Absolute Auto 0.2 0.0 - 0.4 X10*3/uL [facility] Basophils Absolute Auto 0.1 0.0 - 0.2 X10*3/uL [facility] NRBC Abs Auto 0.000 0.0 - 0.012 X10*3/uL [facility] 11/30/2022 4:06 PM EDT 11/30/2022 5:44 PM EDT [facility] External Provider LAB BLO OD ORDERABLES Final Result [facility] [address] [place] [phone] * T-SPOT??.TB (10/30/2022 9:18 AM EDT) T Spot TB Negative Negative [facility] Comment:A negative test resu lt [...] as aquantitative test. TS PANEL A 0 [facility] TS PANEL B 0 [facility] Negative Control Passed [facility] Positive Control Passed [facility] Comment:For additional infor mation, please refer [email or web address](This link is being provided for informational/educational purposes only.)THIS TEST WAS PERFORMED AT:[id number] [place] [address]SEJTRRPLADONNA ROBERT MD,PHD 10/30/2022 9:18 AM EDT 10/30/2022 9:18 AM EDT [facility] External Provider LAB BLO OD ORDERABLES Final Result Performing Organization Address City/[facility]/ZIP Co de Phone Number [facility] [address] [place] [phone] * Hepatitis B surface antigen, EIA (10/30/2022 9:18 AM EDT) Hepatitis B Surface Ag Negative Negative [facility] 10/30/2022 9:18 AM EDT 10/30/2022 9:18 AM EDT [facility] External Provider LAB BLO OD ORDERABLES Final Result Performing Organization Address [facility] de Phone Number [facility] [address] [place] [address] [phone] * HIV Ab/Ag ([facility]) (10/30/2022 9:18 AM EDT) HIV AB/AG Nonreactive Nonreactive [facility] Comment:HIV-1 p24 Ag and/or HIV-1/HIV-2 Ab not detected.A test result that is nonreactive does not exclude thepossibility of exposure to or infection with HIV-1 and/orHIV-2. Nonreactive results in this assay for individualswith prior exposure to HIV-1 and/or HIV-2 may be due toantigen and antibody levels that are below the limit ofdetection of this assay.The [employer] HIV Ag/Ab Combo assay result andsupplemental assay results should be interpreted inconjunction with the patient's clinical presentation,history and other laboratory results. If the results areinconsistent with clinical evidence, additional testing issuggested to confirm the result. 10/30/2022 9:18 AM EDT 10/30/2022 9:18 AM EDT [facility] External Provider LAB BLO OD ORDERABLES Final Result Performing Organization Address [facility] [place]/[facility] Co de Phone Number [facility] [address] [place] [phone] [phone] * Hepatitis C Ab (10/30/2022 9:18 AM EDT) Hepatitis C Antibody Nonreactive Nonreactive [facility] Comment:Antibodies to HCV no t detected; does not exclude early acuteHCV infection. 10/30/2022 9:18 AM EDT 10/30/2022 9:18 AM EDT [facility] External Provider LAB BLO OD ORDERABLES Final Result Performing Organization Address [facility] [place]/[facility]/ZIP Co de Phone Number [facility] [address] [place] [phone] * Hepatitis B Core Antibody, Total (10/30/2022 9:18 AM EDT) Hepatitis B Core Antibody Nonreactive Nonreactive [facility] 10/30/2022 9:18 AM EDT 10/30/2022 9:18 AM EDT [facility] External Provider LAB BLO OD ORDERABLES Final Result Performing Organization Address [facility] Co de Phone Number [facility] [address] [place] [phone] * Hepatitis B Surface Antibody, Qualitative (10/30/2022 9:18 AM EDT) ~Hepatitis B Surface Antibody NONREACTIVE Nonreactive [facility] Comment:Nonreactive: < 8.00 mIU/mL 10/30/2022 9:18 AM EDT 10/30/2022 9:18 AM EDT [facility] External Provider LAB BLO OD ORDERABLES Final Result Performing Organization Address [facility] [place] Co de Phone Number [facility] [address] [place] [phone] * Vitamin B12/Folate, Serum Panel (10/30/2022 9:18 AM EDT) [facility] Vitamin B12 546 200 - 900 pg/mL [facility] Comment:NORMAL 200-900 PG/ML INDETERMINATE 160-199 PG/ML DEFICIENT < 160 PG/ML Folate 11.6 > or = 4.0 ng/mL [facility] Comment:Reference Values:> o r = 4.0 ng/mL< 4.0 ng/mL suggests folate deficiency Methotrexate, aminopterin and folinic acid(leucovorin) are chemotherapeutic agents whose molecularstructures are similar to folate; therefore, the Architectfolate assay cannot be used for patients using these drugs. 10/30/2022 9:18 AM EDT 10/30/2022 9:18 AM EDT [facility] External Provider LAB BLO OD ORDERABLES Final Result Performing Organization Address [facility] [place] Co de Phone Number [facility] [address] [place] [phone] * Prealbumin (10/30/2022 9:18 AM EDT) [facility] Prealbumin 26.0 20 - 40 mg/dL [facility] 10/30/2022 9:18 AM EDT 10/30/2022 9:18 AM EDT [facility] External Provider LAB BLO OD ORDERABLES Final Result Performing Organization Address [facility] [place] Co de Phone Number [facility] [address] [place] [phone] * (ABNORMAL) Comprehensive Metabolic Panel (10/30/2022 9:18 AM EDT) [facility] Sodium 137 135 - 145 mmol/L [facility] Potassium 3.8 3.3 - 5.1 mmol/L [facility] Chloride 102 96 - 108 mmol/L [facility] Carbon Dioxide 22 22 - 29 mmol/L [facility] Anion Gap 17 12 - 20 [facility] Urea Nitrogen (BUN) 10 9 - 16 mg/dL [facility] Creatinine, Serum 0.90 0.5 - 1.4 mg/dL [facility] Estimated Glomerular Filt Rate >60 [facility] Comment:NOTE: For -Am erican individuals, multiply the result by 1.210.Chronic Kidney Disease: Estimated GFR < 60 mL/min/1.15p2Ujhxin Kidney Disease: Estimated GFR < 15 mL/min/1.73m2 Glucose 134(H) 60 - 115 mg/dL [facility] Calcium 10.0 8.4 - 10.2 mg/dL [facility] Bilirubin, Total 0.5 0.0 - 1.0 mg/dL [facility] Aspartate Amino Transferase 51(H) 5 - 31 U/L [facility] Alanine Aminotransferase 32(H) 0 - 31 U/L [facility] Total Protein 6.9 6.5 - 8.0 g/dL [facility] Albumin Level 3.8 3.5 - 5.0 g/dL [facility] Alkaline Phosphatase 51 39 - 117 U/L [facility] 10/30/2022 9:18 AM EDT 10/30/2022 9:18 AM EDT [facility] External Provider LAB BLO OD ORDERABLES Final Result Performing Organization Address [facility] [place]/[facility]/ZIP Co de Phone Number [facility] [address] [place] [phone] * (ABNORMAL) Ferritin (08/31/2022 7:32 AM EDT) Ferritin 299(H) 10 - 250 ng/mL [facility] 08/31/2022 7:32 AM EDT 08/31/2022 7:32 AM EDT [facility] External Provider LAB BLO OD ORDERABLES Final Result Performing Organization Address [facility] [place]/[facility]/ZIP Co de Phone Number [facility] [address] [place] [phone] * B Type Natriuretic Peptide (BNP) (08/31/2022 7:32 AM EDT) B Type Natriuretic Peptide 68 <100 pg/mL [facility] Comment:For those patients w ho are being treated with Natrecor(nesiritide, recombinant BNP), BNP testing should beperformed at least two hours post treatment in order toensure that only endogenous levels of BNP are detected. 08/31/2022 7:32 AM EDT 08/31/2022 7:32 AM EDT [facility] External Provider LAB BLO OD ORDERABLES Final Result Performing Organization Address City/[facility]/ZIP Co de Phone Number [facility] [address] [place] [phone] * (ABNORMAL) Lipase (08/31/2022 7:32 AM EDT) Lipase 154(H) 8 - 78 U/L [facility] 08/31/2022 7:32 AM EDT 08/31/2022 7:32 AM EDT [facility] External Provider LAB BLO OD ORDERABLES Final Result Performing Organization Address City/[facility]/ZIP Co de Phone Number [facility] [address] [place] [phone] * Iron And Total Iron Binding Capacity (08/31/2022 7:32 AM EDT) Iron 36 30 - 160 mcg/dL [facility] Total Iron Binding Capacity 229 228 - 428 mcg/dL [facility] Percent Iron Saturation 16 15 - 50 % [facility] Unsaturated Iron Binding 193 ug/dL [facility] 08/31/2022 7:32 AM EDT 08/31/2022 7:32 AM EDT [facility] External Provider LAB BLO OD ORDERABLES Final Result Performing Organization Address [facility] [place] de Phone Number [facility] [address] [place] [phone] * (ABNORMAL) Basic Metabolic Panel (08/31/2022 7:32 AM EDT) Pathologist [facility] Sodium 138 135 - 145 mmol/L [facility] Potassium 3.8 3.3 - 5.1 mmol/L [facility] Chloride 102 96 - 108 mmol/L [facility] Carbon Dioxide 20(L) 22 - 29 mmol/L [facility] Anion Gap 20 12 - 20 [facility] Urea Nitrogen (BUN) 6(L) 9 - 16 mg/dL [facility] Creatinine, Serum 0.85 0.5 - 1.4 mg/dL [facility] Estimated Glomerular Filt Rate >60 [facility] Comment:NOTE: For -Am erican individuals, multiply the result by 1.210.Chronic Kidney Disease: Estimated GFR < 60 mL/min/1.77r0Cpqxjw Kidney Disease: Estimated GFR < 15 mL/min/1.73m2 Glucose 137(H) 60 - 115 mg/dL [facility] Calcium 9.1 8.4 - 10.2 mg/dL [facility] 08/31/2022 7:32 AM EDT 08/31/2022 7:32 AM EDT [facility] External Provider LAB BLO OD ORDERABLES Final Result Performing Organization Address [facility] [place] Co de Phone Number [facility] [address] [place] [phone] * (ABNORMAL) Hepatic Function Panel (08/31/2022 7:32 AM EDT) Bilirubin, Total 0.4 0.0 - 1.0 mg/dL [facility] Bilirubin, Direct 0.2 0.0 - 0.5 mg/dL [facility] Aspartate Amino Transferase 17 5 - 31 U/L [facility] Alanine Aminotransferase 8 0 - 31 U/L [facility] Total Protein 6.8 6.5 - 8.0 g/dL [facility] Albumin Level 3.8 3.5 - 5.0 g/dL [facility] Alkaline Phosphatase 120(H) 39 - 117 U/L [facility] 08/31/2022 7:32 AM EDT 08/31/2022 7:32 AM EDT us [facility] External Provider LAB BLO OD ORDERABLES Final Result [facility] [address] [place] [phone] * (ABNORMAL) CBC auto differential (08/31/2022 7:32 AM EDT) White Blood Count 12.4(H) 4.8 - 10.8 X10*3/uL [facility] Red Blood Count 3.94(L) 4.20 - 5.50 X10*6/uL [facility] Hemoglobin 11.4(L) 12.0 - 16.0 g/dl [facility] Hematocrit 36.0(L) 37.0 - 47.0 % [facility] Mean Corpuscular Volume 91.4 80.0 - 98.0 fL [facility] Mean Corpuscular Hemoglobin 28.9 27.0 - 33.0 pg [facility] Mean Corpuscular HGB Conc 31.7 31.0 - 35.0 g/dl [facility] Red Cell Distribution Width 14.7 11.0 - 16.0 % [facility] Platelet Count 425(H) 160 - 400 X10*3/uL [facility] Mean Platelet Volume 10.3 9.4 - 12.3 fL [facility] Neutrophils Percent Auto 53.6 45 - 73 % [facility] Imm Gran Pct Auto 0.4 0.0 - 0.4 % [facility] Lymphocytes Percent Auto 30.2 20 - 40 % [facility] Monocytes Percent Auto 10.1 2 - 11 % [facility] Eosinophils Percent Auto 4.6(H) 0 - 4 % [facility] Basophils Percent Auto 1.1 0 - 2 % [facility] NRBC Pct Auto 0.0 0.0 - 0.2 /100WBC [facility] Neutrophils Absolute Auto 6.7 2.0 - 8.3 x10*3/uL [facility] Imm Gran Abs Auto 0.05(H) 0.00 - 0.03 X10*3/uL [facility] Lymphocytes Absolute Auto 3.8 1.2 - 4.9 X10*3/uL [facility] Monocytes Absolute Auto 1.3(H) 0.1 - 1.2 X10*3/uL [facility] Eosinophils Absolute Auto 0.6(H) 0.0 - 0.4 X10*3/uL [facility] Basophils Absolute Auto 0.1 0.0 - 0.2 X10*3/uL [facility] NRBC Abs Auto 0.000 0.0 - 0.012 X10*3/uL [facility] 08/31/2022 7:32 AM EDT 08/31/2022 7:32 AM EDT [facility] External Provider LAB BLO OD ORDERABLES Final Result [facility] [address] [place] [phone] * Hemoglobin A1c (08/31/2022 7:32 AM EDT) Hemoglobin A1c 5.8 % [facility] Comment:Hemoglobin A1C Refer ence Range Adults: 4.8 - 6.0 % Non diabetic: < 6.0 % Goal: < 7.0 %Additional Action Suggested: > 8.0 %Note: Hemoglobin A1c results are invalid for patients with abnormal amounts of HbF. Blood transfusions may impact the HbA1c concentration in the patient sample. Estimated Average Glucose 120 mg/dL [facility] Comment:eAG = Estimated ave rage glucose which is %A1C expressed asaverage glucose, using the formula of the E5B-KbxuoikFzluvya Glucose study (ADAG), Diabetes Care, Vol.31,#8,Dec. 2007 08/31/2022 7:32 AM EDT 08/31/2022 7:32 AM EDT [facility] External Provider LAB BLO OD ORDERABLES Final Result Performing Organization Address [facility] [place]/[facility] Co de Phone Number [facility] [address] [place] [phone] * (ABNORMAL) Basic Metabolic Panel (08/10/2022 4:55 AM EDT) Sodium 137 135 - 145 mmol/L [facility] Potassium 4.7 3.3 - 5.1 mmol/L [facility] Chloride 105 96 - 108 mmol/L [facility] Carbon Dioxide 21(L) 22 - 29 mmol/L [facility] Anion Gap 16 12 - 20 [facility] Urea Nitrogen (BUN) 9 9 - 16 mg/dL [facility] Creatinine, Serum 0.79 0.5 - 1.4 mg/dL [facility] Estimated Glomerular Filt Rate >60 [facility] Comment:NOTE: For -Am erican individuals, multiply the result by 1.210.Chronic Kidney Disease: Estimated GFR < 60 mL/min/1.25n2Zbrlyd Kidney Disease: Estimated GFR < 15 mL/min/1.73m2 Glucose 95 60 - 115 mg/dL [facility] Calcium 8.7 8.4 - 10.2 mg/dL [facility] 08/10/2022 4:55 AM EDT 08/10/2022 6:02 AM EDT [facility] External Provider LAB BLO OD ORDERABLES Final Result Performing Organization Address [facility] [place] Co de Phone Number [facility] [address] [place] [phone] * (ABNORMAL) CBC auto differential (08/10/2022 4:55 AM EDT) White Blood Count 9.3 4.8 - 10.8 X10*3/uL [facility] Red Blood Count 3.24(L) 4.20 - 5.50 X10*6/uL [facility] Hemoglobin 9.7(L) 12.0 - 16.0 g/dl [facility] Hematocrit 30.5(L) 37.0 - 47.0 % [facility] Mean Corpuscular Volume 94.1 80.0 - 98.0 fL [facility] Mean Corpuscular Hemoglobin 29.9 27.0 - 33.0 pg [facility] Mean Corpuscular HGB Conc 31.8 31.0 - 35.0 g/dl [facility] Red Cell Distribution Width 15.2 11.0 - 16.0 % [facility] Platelet Count 647(H) 160 - 400 X10*3/uL [facility] Mean Platelet Volume 10.1 9.4 - 12.3 fL [facility] Neutrophils Percent Auto 54.9 45 - 73 % [facility] Imm Gran Pct Auto 0.5(H) 0.0 - 0.4 % [facility] Lymphocytes Percent Auto 26.3 20 - 40 % [facility] Monocytes Percent Auto 8.3 2 - 11 % [facility] Eosinophils Percent Auto 8.5(H) 0 - 4 % [facility] Basophils Percent Auto 1.5 0 - 2 % [facility] NRBC Pct Auto 0.0 0.0 - 0.2 /100WBC [facility] Neutrophils Absolute Auto 5.1 2.0 - 8.3 x10*3/uL [facility] Imm Gran Abs Auto 0.05(H) 0.00 - 0.03 X10*3/uL [facility] Lymphocytes Absolute Auto 2.4 1.2 - 4.9 X10*3/uL [facility] Monocytes Absolute Auto 0.8 0.1 - 1.2 X10*3/uL [facility] Eosinophils Absolute Auto 0.8(H) 0.0 - 0.4 X10*3/uL [facility] Basophils Absolute Auto 0.1 0.0 - 0.2 X10*3/uL [facility] NRBC Abs Auto 0.000 0.0 - 0.012 X10*3/uL [facility] 08/10/2022 4:55 AM EDT 08/10/2022 6:02 AM EDT us [facility] External Provider LAB BLO OD ORDERABLES Final Result [facility] [address] [place] [phone] * (ABNORMAL) Comprehensive Metabolic Panel (08/03/2022 5:00 AM EDT) Sodium 136 135 - 145 mmol/L [facility] Potassium 3.9 3.3 - 5.1 mmol/L [facility] Chloride 107 96 - 108 mmol/L [facility] Carbon Dioxide 20(L) 22 - 29 mmol/L [facility] Anion Gap 13 12 - 20 [facility] Urea Nitrogen (BUN) 11 9 - 16 mg/dL [facility] Creatinine, Serum 0.79 0.5 - 1.4 mg/dL [facility] Estimated Glomerular Filt Rate >60 [facility] [facility] Comment:NOTE: For -Am erican individuals, multiply the result by 1.210.Chronic Kidney Disease: Estimated GFR < 60 mL/min/1.27w7Hjzein Kidney Disease: Estimated GFR < 15 mL/min/1.73m2 Glucose 127(H) 60 - 115 mg/dL [facility] Calcium 8.2(L) 8.4 - 10.2 mg/dL [facility] Bilirubin, Total 0.3 0.0 - 1.0 mg/dL [facility] Aspartate Amino Transferase 16 5 - 31 U/L [facility] Alanine Aminotransferase 7 0 - 31 U/L [facility] Total Protein 4.8(L) 6.5 - 8.0 g/dL [facility] Albumin Level 2.5(L) 3.5 - 5.0 g/dL [facility] Alkaline Phosphatase 80 39 - 117 U/L [facility] 08/03/2022 5:00 AM EDT 08/03/2022 5:47 AM EDT us [facility] External Provider LAB BLO OD ORDERABLES Final Result [facility] [address] [place] [address] [phone] * (ABNORMAL) CBC auto differential (08/03/2022 5:00 AM EDT) White Blood Count 8.8 4.8 - 10.8 X10*3/uL [facility] Red Blood Count 2.63(L) 4.20 - 5.50 X10*6/uL [facility] Hemoglobin 8.0(L) 12.0 - 16.0 g/dl [facility] Hematocrit 24.6(L) 37.0 - 47.0 % [facility] Mean Corpuscular Volume 93.5 80.0 - 98.0 fL [facility] Mean Corpuscular Hemoglobin 30.4 27.0 - 33.0 pg [facility] Mean Corpuscular HGB Conc 32.5 31.0 - 35.0 g/dl [facility] Red Cell Distribution Width 15.5 11.0 - 16.0 % [facility] Platelet Count 552(H) 160 - 400 X10*3/uL [facility] Mean Platelet Volume 10.3 9.4 - 12.3 fL [facility] Neutrophils Percent Auto 61.1 45 - 73 % [facility] Imm Gran Pct Auto 0.8(H) 0.0 - 0.4 % [facility] Lymphocytes Percent Auto 21.7 20 - 40 % [facility] Monocytes Percent Auto 10.2 2 - 11 % [facility] Eosinophils Percent Auto 4.9(H) 0 - 4 % [facility] Basophils Percent Auto 1.3 0 - 2 % [facility] NRBC Pct Auto 0.0 0.0 - 0.2 /100WBC [facility] Neutrophils Absolute Auto 5.4 2.0 - 8.3 x10*3/uL [facility] Imm Gran Abs Auto 0.07(H) 0.00 - 0.03 X10*3/uL [facility] Lymphocytes Absolute Auto 1.9 1.2 - 4.9 X10*3/uL [facility] Monocytes Absolute Auto 0.9 0.1 - 1.2 X10*3/uL [facility] Eosinophils Absolute Auto 0.4 0.0 - 0.4 X10*3/uL [facility] Basophils Absolute Auto 0.1 0.0 - 0.2 X10*3/uL [facility] NRBC Abs Auto 0.000 0.0 - 0.012 X10*3/uL [facility] 08/03/2022 5:00 AM EDT 08/03/2022 5:47 AM EDT [facility] External Provider LAB BLO OD ORDERABLES Final Result Performing Organization Address City/[facility]/ZIP Co de Phone Number [facility] [address] [place] [phone] * (ABNORMAL) Magnesium (07/13/2022 8:29 AM EST) Magnesium 1.5(L) 1.6 - 2.6 mg/dL [facility] 07/13/2022 8:29 AM EST 07/13/2022 8:29 AM EST [facility] External Provider LAB BLO OD ORDERABLES Final Result Performing Organization Address [facility] [place]/[facility]/ZIP Co de Phone Number [facility] [address] [place] [phone] documented in this encounter Visit Diagnoses Diagnosis Hypomagnesemia- Primary Disorders of magnesium metabolism documented in this encounter Care Teams Instructional Coordinator Relationship Specialty Start Date End Date Shawna Gamble MD [address] [place] [phone] PCP - General Family Medicine 05/13/22 documented as of this encounter
--- OUTSIDE RECORDS SUMMARY | 2024-09-27 12:52 | XMS_ITS | Clinical Summary ---
Author Organization [facility] Address [address] [address] Phone Care Team Providers Care Electronic Repair Troubleshooter Name Role Phone Shawna Gamble MD Primary [...] the rectum 3 Active Cholecalciferol 250 MCG (55914 UT) capsule TAKE 1 CAPSULE BY MOUTH [...] bypass grafting 12/1503/11/2023 Overview (03/11/2023): 07/2022 at [facility] Chest pain on breathing 12/04/2022 03/11/20 Overview [...] A1C 6.8, random sugar 200 today Immunizations Immunization Administration Dates Next Due Hepatitis B 04/27/2018 [...] Mass Index - - Plan of Treatment Health Maintenance Due Date Last Done Comments Breast Cancer Screening 1955 Colorectal Cancer Screening: Annual FOBT 2002 Colorectal Cancer Screening: Colonoscopy 2002 Colorectal Cancer Screening: Sigmoidoscopy 2002 Diabetes: Ophthalmology Exam 01/21/2023 Diabetes: Pedal Pulse Checked 01/21/2023 Diabetes: Sensory Foot Exam 01/21/2023 Diabetes: Visual Foot Exam 01/21/2023 Diabetes: Hemoglobin A1C 03/09/2024 024, 07/14/2023, 11/30/2022 Influenza Vaccine (Season Ended) 2025 03/15/2023, 03/04/2022, 04/02/2021, Additional history exists Hepatitis B Vaccine Aged Out 04/27/2018, 8 No longer eligible based on patient's age to complete this topic Pneumococcal Vaccine: 50+ Years Completed 04/02/2021, 05/11/2019, 03/02/2002 Insurance [facility] ([id number]) [facility] ([id number]) Care Teams Electronic Repair Troubleshooter Relationship Specialty Start Date End Date Shawna Gamble MD [address] [place] [phone] PCP - General Flotation Tank Operator 02/16/24
--- OUTSIDE RECORDS SUMMARY | 2024-09-27 12:52 | XMS_ITS | Encounter Summary ---
Author Organization [employer] Address [address] [facility] 7[address] [place] [address] Care Team Providers Care Army Officer Name Role Phone Shawna Gamble MD Primary Care Provider [phone] Reason for Visit * Reason Comments Med Refill Encounter Details Date Type Department Care Team ([facility] Contact Info) Description 05/07/2023 Refill [facility] [address] [place] [address] Shawna Gamble MD [address] [place] [address] Social History Tobacco Use Types Packs/Day Years [...] t he electric, gas, oil or water [employer] threatened to shut off services in your [...] on filedocumented in this encounter Care Teams Army Officer Relationship Specialty Start Date End Date Shawna Gamble MD [address] [place] [phone] PCP - General Family Medicine 05/13/22 documented as of this encounter
--- OUTSIDE RECORDS SUMMARY | 2024-09-27 12:52 | XMS_ITS | Encounter Summary ---
Author Organization [facility] Address [address] [place] [address] 7[address] [place] [address] Care Team Providers Care Rn Imcu Name Role Phone Shawna Gamble MD Primary Care Provider Encounter Details Date Type Department Care Team (Late st Contact Info) Description 07/13/2022 Abstract [facility] [address] [place] [address] Uriel Jacobs DDS [address] [place] [address] Social History Tobacco Use Types Packs/Day Years [...] on filedocumented in this encounter Care Teams Rn Imcu Relationship Specialty Start Date End Date Shawna aGmble MD [address] [place] [address] PCP - General Family Medicine 05/13/22 documented as of this encounter
--- OUTSIDE RECORDS SUMMARY | 2024-09-27 12:52 | XMS_ITS | Encounter Summary ---
Author Organization [employer] Address [address] [facility] 7t [place] [address] Care Team Providers Care Intern Retail Name Role Phone Makenna Trinidad MD [facility] Provider [facility] Primary Care Provider [phone] Encounter Details Date Type Department Care Team [...] on filedocumented in this encounter Care Teams Intern Retail Relationship Specialty Start Date End Date Makenna Trinidad MD PCP - General Family Medicine 03/24/19 05/12/22 Shawna Gamble MD [address] [place] [address] PCP - General Family Medicine 05/13/22 documented as of this encounter
--- OUTSIDE RECORDS SUMMARY | 2024-09-27 12:52 | XMS_ITS | Encounter Summary ---
Author Organization [email or web address] Address [address] [facility] 7t [place] [address] Care Team Providers Care Financial Counselor Name Role Phone Shawna Gamble MD Primary Care Provider [phone] Reason for Visit * Reason Onset Date Comments rs appt 03/29/2023 Encounter Details Date Type Department Care Team ([facility] st Contact Info) Description 03/29/2023 Telephone [facility] [address] [place] [address] Uriel Jacobs DDS [address] [place] [address] rs appt Social History Tobacco Use Types [...] Miscellaneous Notes * Telephone Encounter - Brandee Amado - 03/29/2023 9:30 AM EST Patient had to cancel today's appt and would like to reschedule. documented in this encounter Plan of Treatment Not on file documented as of this encounter Visit Diagnoses Not on filedocumented in this encounter Care Teams Financial Counselor Relationship Specialty Start Date End Date Shawna Gamble MD [address] [place] [phone] PCP - General Family Medicine 05/13/22 documented as of this encounter
--- OUTSIDE RECORDS SUMMARY | 2024-09-27 12:52 | XMS_ITS | Encounter Summary ---
Author Organization [employer] Address [address] [facility] [address] [place] [address] Care Team Providers Care Asp Net Mvc Developer Name Role Phone Shawna Gamble MD Primary Care Provider [phone] Encounter Details Date Type Department Care Team (Late st Contact Info) Description 01/06/2024 Orders Only [facility] [address] [place] [address] Anisha Mc MD [address] [place] [address] Social History Tobacco Use Types Packs/Day Years [...] documented as of this encounter Care Teams Asp Net Mvc Developer Relationship Specialty Start Date End Date Shawna Gamble MD [address] [place] [phone] PCP - General Family Medicine 05/13/22 documented as of this encounter
--- OUTSIDE RECORDS SUMMARY | 2024-09-27 12:52 | XMS_ITS ---
Author Organization [facility] Care Team Providers Care Collision Worker Name Role Phone Jorge Jarrell Unavailable Unavailable Margarita Santiago Unavailable Unavailable Nicci Womack Unavailable Unavailable Allergies and adverse reactions Code CodeSystem Substance Reaction Severity StartDate Concern Status 06142 RXNORM traMADol Unknown 07/31/[address] Sulfa Antibiotics Unknown 07/31/2022 active 7984 RXNORM Penicillin Unknown 07/31/2022 active 7804 RXNORM oxyCODONE Unknown 07/31/2022 active 7052 RXNORM Morphine Unknown 07/31/2022 active 3640 RXNORM Doxycycline Unknown 07/31/2022 active 2878 RXNORM Cortisone Unknown 07/31/2022 active 2670 RXNORM Codeine Unknown 07/31/2022 active Bactrim Unknown 07/31/2022 active 161 RXNORM Acetaminophen Unknown 07/31/2022 active Care Team Name Role Address Phone Organization Marisol Jarrell PCP [address] [facility] [address], [place], [address], [place] (Office[place] : [facility] 07/31/2022 - 08/11/2022 Margarita Santiago [address], [place], [address], [place] (Office): : [facility] 07/31/2022 - 08/11/2022 Nicci Cruzannabelle [address] [place] [address] [address], [place], [address], [place] (Office): [facility] 07/31/2022 - 08/11/2022 Goals Section Description Status Target Date I will be at reduced risk fo r adverse drug reactions through the review date. Active 10/25/2022 I will be at reduced risk fo r complications of self care performance deficit and impaired mobility daily through the review date. Active 10/25/2022 I will be at reduced risk fo r skin breakdown daily through the review date. Active 10/25/2022 I will be free from discomfo rt or adverse side effects related to anti-depressant therapy through the review date. Active 10/25 I will not experience compli cations of oral/dental health problems through the review date. Active 10/25/2022 I will not have skin breakdo wn due to incontinence through the review date. Active 10/25/2022 I will not have skin breakdo wn due to incontinence through the review date. Active 10/25/2022 I will show effectiveness of medication use as evidenced by a reduction in my behavior/mood symptoms by the review date. Active 10/25/2022 I will verbalize adequate re lief of pain or ability to cope with incompletely relieved pain through the review date. Active The resident's advance direc tives are in effect and their wishes will be carried out through the next review. Active Immunizations Immunization Status Vaccine Details Vaccine Code CodeSystem Date Notes Influenza completed Influenza, split virus, trivalent, injectable, contains preservative 141 CVX created date: 08/03/2022 administere d date: 03/04/2022 Hepatitis B completed hepatitis B vaccine, adult dosage 43 CVX created date: 08/03/2022 administere d date: 04/27/2018 PCV13 (Pneumococcal Conjugate)Vaccine completed pneumococcal conjugate vaccine, 13 valent 133 CVX created date: 08/03/2022 administere d date: 05/11/2019 PPSV23 (Previous Pneumococcal Polysaccharide)Va ccine completed pneumococcal polysaccharide vaccine, 23 valent 33 CVX created date: 08/03/2022 administere d date: 04/02/2021 PPSV23 (Previous Pneumococcal Polysaccharide)Va ccine completed pneumococcal polysaccharide vaccine, 23 valent 33 CVX created date: 08/03/2022 administere d date: 03/02/2002 Tdap (Tetanus, Diphtheria, Pertussis) completed tetanus toxoid, reduced diphtheria toxoid, and acellular pertussis vaccine, adsorbed 115 CVX created date: 08/03/2022 administere d date: 04/27/2018 SARS-COV-2 (COVID-19) completed SARS-COV-2 (COVID-19) vaccine, mRNA, spike protein, LNP, preservative free, 30 mcg/0.3mL dose Step 2 of Multi-step with next step required 208 CVX created date: 08/03/2022 administere d date: 03/11/2021 SARS-COV-2 (COVID-19) completed SARS-COV-2 (COVID-19) vaccine, mRNA, spike protein, LNP, preservative free, 30 mcg/0.3mL dose Step 1 of Multi-step with next step required 208 CVX created date: 08/03/2022 administere d date: 02/04/2021 Mental Status Section Date Assessment Total Score Description 08/11/2022 BIMS 14 cognitively int act CAM 0 No delirium ind icated PHQ-9 00 Problems Problem # Description Date of onset Resolved Date Code CodeSystem Concern Status 1 OTHER LACK OF COORDINATION 08/04/[address] active 2 ENCOUNTER FOR SURGICAL AFTERCARE FOLLOWING SURGERY ON THE CIRCULATORY SYSTEM 07/31/[address] active 3 MUSCLE WASTING AND ATROPHY, NOT ELSEWHERE CLASSIFIED, LEFT UPPER ARM 07/31/[address] active 4 MUSCLE WASTING AND ATROPHY, NOT ELSEWHERE CLASSIFIED, RIGHT UPPER ARM 07/31/[address] active Reason for Referral No Reasons for Referral Entered Social History Social History Observation Description Start Date End Date Code Code System Current Smoking Status Tobacco smoking consumption unknown 942479845 SNOMED CT Sex Assigned At Female 1955 44307-6 [facility] Gender Identity Vital Signs Code Code System Vitals Name Values and Units Timing Information 64667-8 [facility] Pain Level Value=0.0 08/11/2022 9279-1 [facility] Respiratory Rate Value=18.0 Units=/m in 08/11/2022 8462-4 [facility] Blood Pressure-Diastolic Value=69 Un its=mmHg 08/11/2022 8480-6 [facility] Blood Pressure-Systolic Uhfma=951 Un its=mmHg 08/11/2022 8310-5 [facility] Body Temperature Value=97.1 Units=?? F 08/11/2022 8867-4 [facility] Heart rate Value=81.0 Units=/min 84647-2 [facility] O2 % BldC Oximetry Value=98.0 Units= % 08/11/2022 2339-0 [facility] Blood Sugar Hbdnl=425.0 Units=mg/dL 08/11/2022 84922-0 [facility] Weight Mtyfj=448.2 Units=Lbs 8302-2 [facility] Height Value=65.0 Units=Inches 08/01/2022
--- OUTSIDE RECORDS SUMMARY | 2024-09-27 12:52 | XMS_ITS | Data Portability ---
Author Organization [facility] Address [address] [place] [id number] Care Team Providers Care Cans Vacuum Tester Name Role Phone HIM CCA OTHER Assessment Encounter Date Assessment Date Assessment LastModified by Organization Details LastModified Time 10/23/2022 10/23/2022 I have reviewed and agree with the assessment and plan as documented by the still operator batch or continuous. I provided real-time medical direction for this encounter and was immediately available to provide additional phone-based assistance as needed. 67F with COVID, symptoms for 3 days. Pt well appearing,no acute distress. Vitals stable. Respiratory exam normal. Reviewed medications and allergies, will start Paxlovid. Pt advised to hold statin and nasal spray. Red flags and return precautions discussed. paysola Not available 10/23/2022 12:01:55 10/21/2023 10/21/2023 I provided real -time medical direction via phone for this encounter, and was available for additional phone based assistance as needed. I have reviewed and agree with the Assessment and Plan as documented by the Napper Runner. We discussed the diagnostic uncertainty of home visits and the risk associated with this. Due to the dizziness, orthostasis, and possible dehydration, since we are unable to check nor give IV fluids I advised evaluation in the ED. She also would benefit from imaging of that left knee the patient given the opportunity to ask questions. The patient refused to go. The medic spoke to the patient's son who agreed to take her to [facility] or urgent care the following day Advised if develops worsening of any symptoms to call 911- verbalized understanding of instruction [email or web address] Not available 10/22/2023 23:27:07 Plan of Treatment Reminders Order Date Submit Date Provider Last Modified By Organization Details Last Modified Time Details Appointments None recorded. Lab culture, urine 2023 024 LUIS [facility] (Centralized Electronic Ordering - All Locations), Patient Can Go To The Location Of Their Choice, [id number] 4 12:06:01 urinalysis, dipstick [address], [address] [place] [address], [id number] 4 14:27:04 culture, urine 2023 024 LUIS [facility] (Centralized Electronic Ordering - All Locations), Patient Can Go To The Location Of Their Choice, [id number] 4 10:06:31 Referral None recorded. Procedures None recorded. Surgeries None recorded. Imaging electrocard iogram 2023 024 [email or web address] [facility], [address] [place] [address], [phone] 4 23:30:14 Medication Orders nitrofurant oin macrocrysta l 100 mg capsule [address]/Pharmacy #[id number], [address] [place], [address], 4 16:12:35 Paxlovid 300 mg (150 mg x 2)-100 mg tablets in a dose pack 2022 023 [facility]/Pharmacy #[id number], [address] [place], [address], 3 12:02:00 Patient TargetsNo targets recorded. Patient InstructionsNo instructions recorded. Reason for Referral None Reported. Results Created Date Observation Date Name Description Value Unit Range Abnormal Flag Note LastModifiedBy Organization Detail LastModifiedTime 11/08/1911/10/2023 URINE CULTU RE, ROUTI NE urine culture, routine Final report Not Available [facility] ([facility]) [address] [facility], [place], [address], 11/10/2023 10:06:30 11/08/19 24 11/10/2023 URINE CULTU RE, ROUTI NE result 1 COMMEN T Mixed uroge nital stevan 25,00 0-50, 000 colon y formi ng units per mL Not Available [facility] ([facility]) [address] [facility], [place], [address], 11/10/2023 10:06:30 12/14/19 24 12/18/2023 URINE CULTU RE,CO MPREH ENSIV E urine culture,comp rehensive Final report Not Available [facility] ([facility]) [address] [facility], [place], [address], 12/18/2023 12:06:01 12/14/19 24 12/18/2023 URINE CULTU RE,CO MPREH ENSIV E result 1 COMMEN T Mixed uroge nital stevan 10,00 0-25, 000 colon y formi ng units per mL Not Available [facility] ([facility]) [address] [facility], [place], [address], 12/18/2023 12:06:01 12/14/19 24 12/14/2023 urina lysis , dipst ick Leukocytes + Not Available Main - [facility] [address] [place] [address], [address] [place] [address] 12/14/2023 14:26:25 12/14/19 24 12/14/2023 urina lysis , dipst ick Nitrite negati ve Not Available Main - [facility] ed [address] [place] [address], [address] [place] [address] 12/14/2023 14:26:25 12/14/19 24 12/14/2023 urina lysis , dipst ick Protein + Not Available Main - [facility] [address], [address] 12/14/2023 14:26:25 12/14/19 24 12/14/2023 urina lysis , dipst ick Blood +++ Not Available Main - [facility] [address], [address] 12/14/2023 14:26:25 10/22/19 24 10/22/2023 venice muller am No observ ation record ed. [email or web address] Main - [facility] [address] [place] [address], [address] [place] [address] 10/22/2023 23:30:13 Result Notes None recorded. Procedures Surgical History None recorded. Imaging Results Imaging Date Name Status LastModified by Organization Details LastModified Time 10/22/2023 electrocardiogram completed [email or web address], [address] 10/22/2023 23:30:13 Procedure Notes None recorded. Medical Equipment None Reported. Allergies Allergen ID Allergen Name Allergen Category Reaction Reaction Severity Criticality Documentation Date Start Date Code Code System Note Provider Name and Address Organization Details Recorded Time 361 Product containin g penicilli n (product) medicatio n Not available Not available Not available 08/28/2021 58297 8001 SNOMED Not Available [facility] - production 4 03:39:31 362 Bactrim medicatio n Not available Not available Not available 08/28/2021 95497 9 [facility] 4 03:39:31 5193 Toradol medicatio n Not available Not available Not available 10/22/2023 52589 RxNorm Judy Miller MD [address] [place] [address],[address], [place], [address], [facility] 4 23:23:39 5194 acetamino phen / oxycodone medicatio n Not available Not available Not available 10/22/2023 13134 3 RxNorm Judy Miller MD [address] [place] [address],[address], [place], [address], [facility] 4 23:23:48 5195 morphine medicatio n Not available Not available Not available 10/22/2023 7052 Rx[facility] 4 03:39:31 5196 codeine medicatio n Not available Not available Not available 10/22/2023 2670 RxNorm Judy Miller MD [address] [place] [address],[address], [place], [address], [facility] 4 23:24:01 5735 azithromy fabien medicatio n Not available Not available Not available 12/14/2023 48756 RxNorm Not Available [facility] - production 4 03:39:31 5736 acetamino phen medicatio n Not available Not available Not available 12/14/2023 161 RxNorm Not Available [facility] - production 4 03:39:31 5737 doxycycli ne Not available Not available Not available Not available 12/14/2023 3640 [facility] 4 03:39:31 5738 hydrocort isone medicatio n Not available Not available Not available 12/14/2023 5492 RxNorm Yolanda Millan MD [address] [facility],[address], [place], [address] , [email or web address] 4 14:24:20 7747 ketorolac medicatio n Not available Not available Not available 03/14/2024 74062 RxNorm Not Available w - 4 03:39:31 Medications Name Sig Start Date Stop Date Status Note LastModified by Organization Details LastModified Time vitamin d3 10,000 iu softgels TAKE 1 CAPSULE BY MOUTH TWICE WEEKLY FOR 3 MONTHS active Not Available Not Available No t Available vitamin d3 cap [id number] active Not Available Not Available Not Available metformin 500 mg tablet active Not Available Not Available Not Available atorvastat in 80 mg tablet TAKE 1 TABLET (80 MG) BY MOUTH IN THE MORNING active Not Available Not Available No t Available gabapentin 600 mg tablet TOME BERNABE TABLETA CUATRO VECES AL MADIHA 90 active Not Available Not Available No t Available clindamyci n HCl 300 mg capsule active Not Available Not Available N ot Available metoprolol succinate ER 50 mg tablet,ext ended release 24 hr TAKE 1 TABLET BY MOUTH EVERY DAY active Not Available Not Available No t Available hydrochlor othiazide 50 mg tablet TOME BERNABE TABLETA TODOS LOS D active Not Available Not Available No t Available sumatripta n 100 mg tablet TOME BERNABE TABLETA POR V A ORAL CADA CUATRO HORAS CUANDO SEA NECESARIO FOR HEADACHE active Not Available Not Available No t Available senna 8.6 mg tablet TAKE 2 TABLETS BY MOUTH EVERY DAY AT BEDTIME FOR CONSTIPAT ION active Not Available Not Available No t Available sucralfate 1 gram tablet TAKE 1 TABLET BY MOUTH TWICE A DAY active Not Available Not Available No t Available FreeStyle Lancets 28 gauge USE TO TEST 3 TIMES DAILY active Not Available Not Available No t Available sumatripta n 25 mg tablet TAKE 1 TAB BY MOUTH EVERY 2-4 HOURS NEEDED FOR MIGRAINE HEADACHE DO NOT EXCEED 8 DOSES PER 24 HRS active Not Available Not Available No t Available isosorbide mononitrat e ER 30 mg tablet,ext ended release 24 hr TAKE 1 TABLET BY MOUTH EVERY DAY IN THE MORNING active Not Available Not Available No t Available lactated Ringers intravenou s solution Inject 1000 mL by intraveno us route. 2022 active Not Available Not Available Not Avai lable sumatripta n 50 mg tablet TAKE 1/2 TABLET AT ONSET OF MIGRAINE, REPEAT IN 1 HR IF NECESSARY ORALLY UPTO TWICE A DAY 30 DAYS active Not Available Not Available No t Available clopidogre l 75 mg tablet TAKE 1 TABLET BY MOUTH EVERY DAY active Not Available Not Available No t Available chlorthali done 25 mg tablet TAKE 1 TABLET BY MOUTH EVERY DAY IN THE MORNING WITH FOOD FOR 30 DAYS active Not Available Not Available No t Available amlodipine 5 mg tablet TAKE 1 TABLET BY MOUTH EVERY DAY FOR 30 DAYS active Not Available Not Available No t Available ciprofloxa fabien 500 mg tablet TAKE 1 TABLET BY MOUTH TWICE A DAY active Not Available Not Available No t Available omeprazole 40 mg capsule,de layed release TAKE 1 CAPSULE BY MOUTH TWICE A DAY active Not Available Not Available No t Available aspirin 81 mg tablet,del ayed release TAKE 1 TABLET (81 MG) BY MOUTH IN THE MORNING active Not Available Not Available No t Available triamcinol one acetonide 0.1 % topical cream APPLY TO AFFECTED AREA TWICE A DAY active Not Available Not Available No t Available amitriptyl ine 25 mg tablet TAKE 1 TABLET BY MOUTH EVERY DAY AT BEDTIME FOR 30 DAYS active Not Available Not Available No t Available magnesium oxide 400 mg (241.3 mg magnesium) tablet TAKE 1 TABLET BY MOUTH EVERY DAY active Not Available Not Available No t Available trazodone 100 mg tablet TAKE 1 TABLET BY MOUTH EVERYDAY AT BEDTIME active Not Available Not Available No t Available benzonatat e 100 mg capsule PLEASE SEE ATTACHED FOR DETAILED DIRECTION S active Not Available Not Available No t Available pantoprazo le 40 mg tablet,del ayed release TAKE 1 TABLET BY MOUTH TWICE A DAY active Not Available Not Available No t Available nitrofuran toin macrocryst al 100 mg capsule Take 1 capsule every 12 hours by oral route for 5 days, for UTI. 2023 active Not Available Not Available Not Avai lable docusate sodium 100 mg capsule TAKE 1 CAPSULE BY MOUTH EVERY DAY active Not Available Not Available No t Available hydroxyzin e HCl 25 mg tablet TAKE 1 TABLET BY MOUTH EVERY 8 HOURS NEEDED FOR 30 DAYS active Not Available Not Available No t Available mupirocin 2 % topical ointment APPLY SPARINGLY TO AFFECTED AREA 3 TIMES A DAY active Not Available Not Available No t Available sodium chloride 0.9 % intravenou s solution 500 cc now 2021 active Not Available Not Available Not Avai lable metoprolol succinate ER 25 mg tablet,ext ended release 24 hr active Not Available Not Available Not Available ibuprofen 600 mg tablet TOME BERNABE TABLETA MALIKA VECES AL MADIHA CUANDO SEA NECESARIO 30 active Not Available Not Available No t Available polyethyle ne glycol 3350 17 gram/dose oral powder TAKE 1 CAPFUL 17 GRAMS BY MOUTH EVERY DAY active Not Available Not Available No t Available lisinopril 40 mg tablet TAKE 1 TABLET BY MOUTH EVERY DAY active Not Available Not Available No t Available ondansetro n 4 mg disintegra ting tablet DISSOLVE 1 TABLET ON TONGUE EVERY 8 HOURS NEEDED FOR NAUSEA AND VOMITING FOR 30 DAYS active Not Available Not Available No t Available fluticason e propionate 50 mcg/actuat ion nasal spray,susp ension SPRAY 1 SPRAY TO EACH NOSTRIL 2 TIMES DAILY NEEDED FOR ITCHING active Not Available Not Available No t Available metformin ER 500 mg tablet,ext ended release 24 hr TAKE 2 TABLET BY ORAL ROUTE 2 TIMES EVERY DAY WITH THE EVENING MEAL active Not Available Not Available No t Available clotrimazo le 1 % topical cream APPLY TO AFFECTED AREA TWICE A DAY FOR 14 DAYS active Not Available Not Available No t Available loratadine 10 mg tablet TAKE 1 TABLET BY MOUTH EVERY DAY active Not Available Not Available No t Available Saline Nasal 0.65 % spray aerosol USE 1-2 SPRAYS ON EACH NOSTRIL EVERY 2-3 HOURS NEEDED FOR NASAL CONGESTIO N active Not Available Not Available No t Available cyclobenza em 5 mg tablet TAKE 1 TABLET BY ORAL ROUTE 3-4 HOURS BEFORE BEDTIME NEEDED active Not Available Not Available No t Available cholestyra mine (with sugar) 4 gram oral powder TAKE 4 GRAMS WITH A MEAL TWICE A DAY AVOID OTHER MEDS WITHIN 1HR BEFORE OR 4-6HR AFTER DOSE active Not Available Not Available No t Available metoprolol tartrate 25 mg tablet TAKE 1 TABLET BY MOUTH EVERY DAY WITH FOOD active Not Available Not Available No t Available topiramate 50 mg tablet TAKE 1 TABLET BY MOUTH EVERYDAY AT BEDTIME active Not Available Not Available No t Available Alex Milk of Magnesia 400 mg/5 mL oral suspension TAKE 5 ML ORALLY BEDTIME NEEDED FOR CONSTIPAT ION FOR 30 DAYS active Not Available Not Available No t Available duloxetine 20 mg capsule,de layed release TAKE 1 CAPSULE BY MOUTH EVERY DAY active Not Available Not Available No t Available cholecalci ferol (vitamin D3) 250 mcg (10,000 unit) capsule TAKE 1 CAPSULE BY MOUTH TWICE WEEKLY FOR 3 MONTHS active Not Available Not Available No t Available ondansetro n HCl (PF) 4 mg/2 mL injection solution 4mg x1 IV 2022 active Not Available Not Available Not Avai lable FreeStyle Lite Strips USE DIRECTED 3 TIMES A DAY active Not Available Not Available No t Available Creon 12,000-38, 000-60,000 unit capsule,de layed release TAKE 1 CAPSULE BY MOUTH THREE TIMES A DAY WITH MEALS/SNA CKS active Not Available Not Available No t Available Creon 24,000-76, 000-120,00 0 unit capsule,de layed release TAKE 1 CAPSULE 4 TIMES A DAY 30 DAYS ADMINISTE R WITH MEALS AND/OR SNACKS active Not Available Not Available No t Available Linzess 290 mcg capsule TAKE 1 CAPSULE BY MOUTH EVERY MORNING FOR 30 DAYS active Not Available Not Available No t Available potassium chloride ER 20 mEq tablet,ext ended release 1 tablet given x1 at my request w/ cracker 2021 active pat tolerated well w/out n/v Not Available Not Available Not Available Trulance 3 mg tablet TAKE 1 TABLET BY MOUTH EVERY DAY active Not Available Not Available No t Available BD Megha 2nd Gen Pen Needle 32 gauge x USE FOR INSULIN INJECTION S ONCE DAILY active Not Available Not Available No t Available Paxlovid 300 mg (150 mg x 2)-100 mg tablets in a dose pack TALE 3 TABLETS BY MOUTH TWICE DAILY FOR 5 DAYS DIRECTED ON PACKAGE active Not Available Not Available No t Available Vitals Date Recorded Oxygen saturation Oxygen saturation in Arterial blood by Pulse oximetry Body weight Heart rate Respiratory rate Body temperature Systolic blood pressure Diastolic blood pressure Provider Name and Address Organization Details Last Updated DateTime 3 98 % 98 % 91611.7 92 g 73 /min 14 /min 97.9 [degF] 151 mm[Hg] 79 mm[Hg] Not Available [facility] production 3 11:56:26 Date Recorded Body temperature Body weight Oxygen saturation Oxygen saturation in Arterial blood by Pulse oximetry Heart rate Respiratory rate Oxygen saturation Oxygen saturation in Arterial blood by Pulse oximetry Body weight Heart rate Respiratory rate Body temperature Heart rate Oxygen saturation Oxygen saturation in Arterial blood by Pulse oximetry Respiratory rate Body weight Body temperature Systolic blood pressure Diastolic blood pressure Systolic blood pressure Diastolic blood pressure Systolic blood pressure Diastolic blood pressure Provider Name and Address Organization Details Last Updated DateTime 3 97.8 [degF] 44046.0 56 g 98 % 98 % 78 /min 18 /min 98 % 98 % 44378.0 56 g 78 /min 18 /min 97.8 [degF] 78 /min 98 % 98 % 18 /min 49484.0 56 g 97.8 [degF] 136 mm[Hg] 84 mm[Hg] 136 mm[Hg] 84 mm[Hg] 136 mm[Hg] 84 mm[Hg] Not Available [employer] [facility] 3 19:32:13 Date Recorded Oxygen saturation Oxygen saturation in Arterial blood by Pulse oximetry Body weight Heart rate Body temperature Respiratory rate Heart rate Systolic blood pressure Diastolic blood pressure Systolic blood pressure Diastolic blood pressure Provider Name and Address Organization Details Last Updated DateTime 4 98 % 98 % 12223.7 36 g 76 /min 98.2 [degF] 16 /min 84 /min 104 mm[Hg] 62 mm[Hg] 138 mm[Hg] 72 mm[Hg] Not Available [employer] 4 17:48:30 Date Recorded Body temperature Oxygen saturation Oxygen saturation in Arterial blood by Pulse oximetry Respiratory rate Heart rate Systolic blood pressure Diastolic blood pressure Provider Name and Address Organization Details Last Updated DateTime 4 97.4 [degF] 96 % 96 % 16 /min 79 /min 161 mm[Hg] 77 mm[Hg] Not Available [employer] 4 19:28:53 Date Recorded Body temperature Heart rate Respiratory rate Oxygen saturation Oxygen saturation in Arterial blood by Pulse oximetry Systolic blood pressure Diastolic blood pressure Provider Name and Address Organization Details Last Updated DateTime 4 97.5 [degF] 94 /min 18 /min 95 % 95 % 138 mm[Hg] 66 mm[Hg] Not Available [facility] - production 4 14:33:56 Social History None recorded. Functional Status None recorded. Mental Status None recorded. Family History Nothing Reported. Medical History No medical history recorded. Gynecological HistoryNo gynecological history recorded. Obstetrics History GPAL:G 0 P 0 0 0 0 Past Encounters Encounter ID Performer Location Encounter Start Date Encounter Closed Date Diagnosis/Indication Diagnosis SNOMED-CT Code Diagnosis ICD10 Code Diagnosis Note [id number] Judy Miller MD Main - [facility] [address] [place] [phone] 08/28/2021 18:50:39 01/22/2022 18:02:00 Nausea and vomiting 15075775 R11.2 w/ some mild dehydratio n and weakness [id number] William Ashby MD Main - [facility] [address] [place] [phone] 10/25/2021 17:53:19 02/09/2022 11:43:09 Mild dehydration [id number] 108 E86.0 Sxs similar to past GI episodes; no fevers/chi lls. Unable to get CMP to check Automatic Profile Shaper Operator and K+ today. Agrees to IVF and IV Zofran [id number] Judy Miller MD Main - [facility] [address] [place] [phone] 02/10/2022 16:22:29 02/16/2022 13:49:15 Chest pain 22664444 R07.9 resolved- most likely anxiety, however patient has significan t PMH. Prior recent echocardio gram revealed preserved EF with mild AR on record review. EKG has some minor abnormalit ies/ scattered t wave inversions - no old for comp available. - so ? acuity- d/w patient- needs cardiology f/u. Has appt w/ her cardiologi st: Dr. Emmanuel Rodríguez in [place] . Advised pt and son to call in the am tomorrow- to move the appt up to SP-It would be beneficial if care team could assist in securing earlier appt for this patient Advised to continue all her meds as prescribed - not skip doses unless BP very low. Reassured BP ok during visit. Advised to avoid stimulants like caffeine and stressful situations if possible, also if develops CP unrelieved by hydroxyzin e/uncontro lled or unexplaine d sweating/ severe SOB or near syncope/sy ncope to call 911. She verbalized understand ing of same [id number] URIEL JETT MD Main - [facility] [address] [place] [phone] 09/18/2022 13:17:20 09/21/2022 10:09:15 Viral gastroenteritis [id number] A08.4 [id number] Lopez Choe MD Main - [facility] [address] [place] [phone] 10/05/2022 13:33:35 10/06/2022 14:51:40 Nausea and vomiting [id number] R11.2 [id number] Mary Carmen Connell MD Main - [facility] [address] [place] [phone] 10/23/2022 11:56:24 10/26/2022 13:09:06 COVID-19 [id number] U07.1 [id number] Ana Valdivia MD Main - [facility] [address] [place] [phone] 11/10/2022 18:36:52 11/11/2022 08:50:45 Lethargy 341916016 R53.83 pt with acute on chronic nausea/vom iting and intermitte nt diarrhea for the last year, now presenting with lethargy, poor po intake and nausea/vom iting without ability to keep any food down. She reportedly had a pancreas MRI, EGD and colonoscop y in the last year to work this up without identifica tion of an etiology. Has lost 30+ lbs in the last year. No melena/hem atochezia/ hematemesi s. Unable to ambulate currently and unable to keep eyes open for duration of exam. Overall unclear etiology (ddx includes GI malignancy , gastropare sis, SBO) though she apparently has failure to thrive given her progressiv e weakness and weight loss. Discussed at length with pt and family; explained that though this is not a medical emergency, I and the still operator batch or continuous were concerned about FTT and that she likely needs evaluation in the ED and admission to diagnose underlying process and establish a more durable plan for nutrition. Pt and family elected to go to the ED tonight. [id number] Judy Miller MD Main - [facility] [address] [place] [phone] 10/21/2023 17:48:07 09/15/2024 00:13:09 Fall W19.XXXA Secondary to dizziness intermitte ntly. Due to possible dehydratio n I advised holding chlorthali done 25 mg for 48 hours until rechecked [id number] Carmen Vo MD Main - [address] [phone] 11/08/2023 19:28:51 11/09/2023 16:11:48 Urinary symptoms [id number] R39.9 68 year old female with a history of recurrent UTI, being evaluated for recurrent dysuria. Patient reports recently getting treated for a UTI (unsure what she was treated with), with temporary resolution of symptoms for 5 days, then recurrent symptoms for the last two days. Patient without fever/chil ls, flank pain, nausea/vom iting, and is taking PO. Exam notable for normal vital signs, POC urine dip positive for leukocytes . Presentati on consistent with possible simple cystitis, likely incomplete ly treated. Will resend urine culture and defer antibiotic s until results, given clinical stability and possible drug resistant organism. I have reviewed and agree with the assessment and plan as documented by the still operator batch or continuous. I provided real-time medical direction for this encounter and was immediatel y available to provide additional phone-base d assistance as needed. We discussed the diagnostic uncertaint y of home visits and associated risks. We discussed the need to seek care urgently/e mergently in the setting of any new or worsening symptoms. [id number] Yolanda Millan MD Main - [facility] [phone] 12/14/2023 13:57:08 12/15/2023 10:57:43 Urinary symptoms [id number] R39.9 Evaluation in the field was performed by my still operator batch or continuous colleague, as noted above, I provided real-time direction and supervisio n for this visit. 68yo F PMHx T2DM, HTN, prior UTIs, multiple abx allergies p/w 1d UTI symptoms including dysuria and hematuria. Denies hx nephrolith iasis, no current fevers or back pain. VS unremarkab le. POC UA + leuks, blood, and protein. Overall presentati on c/w cystitis, will empiricall y tx with Macrobid given no known CKD and no concern for pyelonephr itis, send UCx and tailor abx prn. Pt in agreement. We discussed the diagnostic uncertaint y of home visits and the risk associated with this. In this case, the patient and I felt this to be an acceptable and reasonable amount of risk given the benefit of avoiding an ED visit. We discussed the need to seek care urgently/e mergently in the setting of any new or worsening serious symptoms, shortness of breath, cough, chest pain, fever. Health Concerns Section Related Observation LastModified by Organization Detai ls LastModified Time None Recorded Concern Status LastModified by Organization Details LastModified Time None Recorded Advance Directives Directive None Recorded Payers Insurance Date Sequence Insurance Name Policy Number Policy Swartz Covered Member ID Swartz Member ID Guarantor Name 04/28/2024 1 [facility] - DOS PRIOR TO 2022 - DUAL ELIGIBLE (MEDICARE REPLACEMENT/ADV ANTAGE - HMO) Sonia Marcano [id number] Sonia Marcano 09/15/2024 1 [facility] - DOS ON OR AFTER 2022 - DUAL ELIGIBLE - CARE HOME OPTIONS AND ONE CARE (MEDICARE REPLACEMENT/ADV ANTAGE - HMO) Sonia Marcano [id number] Sonia Marcano Notes Date Note Type Note Provider Name and Address Organization Details Recorded Time 10/23/2022 text/html CRC Nursing Assessment: Reason For Request: COVID + Chief Complaints: Cough, Shortness of Breath/Dyspnea PMH: Diabetes, CHF, Hypertension, Heart Disease Allergies: Penicillin, Bactrim, Ketorolac Comments: Member was diagnosed with COVID by rapid home test. Member c/o weakness , not eating well, loose stool. Member is having fever and chills , unsure what temp is Member is taking Excedrin for RED and robitussin for cough Mary Carmen Connell MD [address] [facility],[address], [place], [phone], [facility] 10/23/2022 12:02:12 11/10/2022 text/html CRC Nursing Assessment: Reason For Request: Pts son reporting pt weakness this week>hardly able to hold down food>Unable to get out of bed today>Pt losing weight as the days go on. Patient Reports: Inability to tolerate foods, fluids or daily medications Chief Complaints: Weakness/Lethargy, Nausea/Vomiting PMH: Diabetes, CHF, Hypertension, Heart Disease Allergies: Penicillin, Bactrim, Ketorolac Comments: Son calling on behalf of member with complaints of nausea and vomiting states chronic increased over past few days. taking nausea meds without relief Verify member name/- .................... .................... .................... .................... .................... .................... .................... . Napper Runner Note From Mike Pham: Pt presents A@Ox4 pale cool and dry Clear airway with equal chest rise and fall. Pt c/o increased abdominal pain, unable eat/keep food down, drinking some, losing 2 - 3 pounds per day according to family . Family sts pt is unable to get out of bed or walk on her own any longer . Pt denies CP SOB fever flank pain urinary pain, blood in stool or vomit. Baseline vitals assessed and recorded. Vitals stable. COvid and flu swab neg. POC blood work low electrolytes( K Na cl ica tco2) . otherwise unremarkable. Abdomen pain upon palpation all 4 quads. [facility] [place] and advised that pt be seen in the ER. Family agreed and decided they wanted 911 called for ambulance for her. Pt and family requested transport to [facility] ambulance arrived on scene and pt care was transferred. Report given Napper Runner Allergies: Penicillin, Bactrim, Ketorolac .................... .................... .................... .................... .................... .................... .................... . Disposition: Fulfilled Ana Valdivia MD [address] [facility],[address], [place], [phone], [facility] 11/10/2022 22:25:14 10/21/2023 text/html CRC Nurse Triage Notes (Gypsy Moeller): Reason For Request: PT fell and scraped her knee/pain/dizziness caused the fall Chief Complaints: Falls, Injury, Pain PMH: Diabetes, CHF, Hypertension, Heart Disease Allergies: Penicillin, Bactrim, Ketorolac Comments: Son calling up to report her family member fall today and scraped her knee, was dizzy prior to fall. Currently member is with her BRAND MARKETING COORDINATOR at this time but may be alone after her BRAND MARKETING COORDINATOR shift is over. Son reports Japanese speaking onlyNo recent falls, no extreme pain, no acute distress at this time.Son did not elaborate more on this Negra AVERY .................... .................... .................... .................... .................... .................... .................... . Napper Runner Note From Mike Pham: Pt co knee pain from fall. Pt sts she was dizzy before the fall. Pt denies head neck or back injuries. Denies trauma. Pt sts knee is tender with minor abrasion on left knee. Pt denies dizziness at time of visit , cp , sob or AMS. Pt eating and drinking fluids appropriately. Baseline vitals assessed, orthos, pt ortho static, ekg performed , NS , lungs clear. C contacted and POc bloodwork attempted x3 without success. Poor vasculature. Pt advised to go to pcp or urgent care tomorrow for xray. Pt education on signs indicating the ER. Napper Runner Allergies: Penicillin, Bactrim, Ketorolac .................... .................... .................... .................... .................... .................... .................... . Disposition: Fulfilled Judy Miller MD [address] [place] [address],[address], [place], [phone], [facility] 10/22/2023 23:30:26 11/08/2023 text/html CRC Nurse Triage Notes (Belksi Rosales): Reason For Request: UTI Chief Complaints: UTI/Pyelonephritis, Pain PMH: Diabetes, CHF, Hypertension, Heart Disease Allergies: Penicillin, Bactrim, Ketorolac Comments: Airplane Woodworker verified the member's name//address and phone number. Member is a 68 yr old female, welsh speaking a/o 3 PMH DM> CHF> HTN A member called with c/o bilateral left leg pain and swelling , s/p fracture and possible UTI. The member went to the ER for UTI symptoms but did not get any follow-up testing. She is not having any symptoms but wanted follow up testing Education provided on the response time and the member was advised to monitor reported s/s and seek emergency treatment if needed Napper Runner POC Test Results from Art Byers Urine Dipstick (19:27:00) Urine leukocytes: 2+ BRO Urine nitrites: - NIT Urine urobilinogen: - URO Urine protein: + PRO Urine pH: 6.0 pH Urine blood: - BLO Urine specific gravity: 1.010 SG Urine ketones: - KET Urine bilirubin: - ALEXIS Urine glucose: - GLU .................... .................... .................... .................... .................... .................... .................... . Napper Runner Note From Art Byers: Pt reports two weeks ago, while in the ED for a knee injury, she was found to have a UTI, treated with ? a pill? , and not sent home with anything else. Pt sts the sx resolved however returned again yesterday. Pt reporting dysuria and suprapubic discomfort. Pt sts last UTI (prior to two weeks ago) was approx 3 months ago. Pt denies hematuria, flank pain, f/n/v/d. Pt is alert, NAD. VSS. Afebrile. Non focal neuro exam. Lungs CTA. Benign ABD exam. No CVA tenderness. No LE edema. UA uploaded, clear, yellow, not highly suggestive of infection. UC sent to [facility]. Pt/son instructed to stay well hydrated, monitor sx closely, f/u with PCP. Red flags reviewed. [facility] [place] Orders: culture, urine: Performed .................... .................... .................... .................... .................... .................... .................... . Disposition: Andrey Vo MD [address], [place], [phone] [email or web address] 11/08/2023 21:51:23 12/14/2023 text/html HPI: Call returned to Sonia Marcano to triage below. Reports having pain with passing urination x 1 day. Per pt not dark, odor or with blood. Per pt feeling urgency. Pt denies any pelvic pain, flank pain, n/v or fever. Pt denies any vaginal discharge. Pt unable to come into [facility]. AGrees to [employer] eval to rule out UTI. .................... .................... .................... .................... .................... .................... .................... . CRC Nurse Triage Notes (Rolanda Falk): Chief Complaints: UTI/Pyelonephritis PMH: COPD/Asthma, Diabetes, CHF, Hypertension, Heart Disease Allergies: Acetaminophen, Azithromycin, Doxycycline, Trimethoprim-Sulfame thoxazole, Morphine, Penicillin, Bactrim, Ketorolac Other Allergies: Cortisone, Ketorolac, Metformin, Morphine, Oxycodone, Pioglitazone, tramadol Comments: HPI reviewed. No further information needed to process visit. Napper Runner Organization Information for Tamara Saldaña Business Legal Name: [employer]? Address: [address] [place] [address], Application Support Engineer: Swapnil Quarles MD CLIA No.: [id number] Napper Runner POC Test Results from Tamara Saldaña Urine Dipstick (1) [14:40] Urine leukocytes: 125 BRO Urine nitrites: - NIT Urine urobilinogen: 0.2 URO Urine protein: 100++ PRO Urine pH: 7.5 pH Urine blood: 50 BLO Urine specific gravity: 1.010 SG Urine ketones: - KET Urine bilirubin: - ALEXIS Urine glucose: - GLU .................... .................... .................... .................... .................... .................... .................... . Napper Runner Note From Tamara Saldaña: Sent to a call for a pt complaining of UTI symptoms. [facility] arrives on scene, pt is alert and oriented, airway is patent. Pt's primary language is Japanese. Telecommunications Network Planner line used during visit. Pt complains of dysuria and increased frequency of urination since yesterday, and hematuria today. Pt denies red, dizziness, cp, sob, n/v/d, abd pain, fever, or loc. BP:138/66, P:94, RR:18, SpO2:95% RA, T:97.5; Head: unremarkable; Lung sounds: clear bilaterally; Abdomen: soft, non-tender, no distention; Back: no CVA tenderness; Extremities: unremarkable; Skin: pink, warm, dry; Urine sample obtained; urine dip performed; results uploaded to [employer]. [facility] [place] and speaks to pt via phone. Pt's allergies to medication verifed: PCN, Bactrim (sulfa), Azithromycin, Morphine, Percocet, Codeine, Doxycycline, Hydrocortisone, Tramadol, Prednisone. [facility] [place] culture to be taken to [facility]. [facility] [place] script to pt's pharmacy. Red flags discussed. Pt has no further questions. .................... .................... .................... .................... .................... .................... .................... . Disposition: Fulfilled Yolanda Millan MD [address] [place] [address],[address], [place], [phone], BRIAN CORADO 12/14/2023 16:12:39 OBGyn Episode No OBEpisode recorded.
--- OUTSIDE RECORDS SUMMARY | 2024-09-27 12:52 | XMS_ITS | Clinical Summary ---
Author Organization [employer] Address [address] [place] [address] [address] [place] [address] Care Team Providers Care Drum Drier Operator Name Role Phone Shawna Gamble MD Primary Care Provider [phone] Allergies Active Allergy Reactions Criticality Noted Date [...] 2 Active cholecalciferol (Vitamin D-3) 250 MCG (20252 UT) capsule TAKE 1 CAPSULE BY MOUTH [...] kit 3 Active OneTouch Delica Lancets 33G [facility] Use to test blood [...] EVERY DAY FOR 30 DAYS 4 Active pilocarpine (Salagen) 5 MG tablet [...] mouth twice daily. 180 tablet 4 Active DULoxetine (Cymbalta) [...] tabletIndication s:Atherosclerosi s of coronary artery of [place] heart, unspecified vessel or lesion type, unspecified whether angina present TAKE 1 TABLET (80 MG) BY MOUTH IN THE MORNING 90 tablet 3 4 Active Xarelto 2.5 MG tablet Take 1 tablet (2.5 mg) by mouth 2 times daily. 60 tablet 6 4 Active loratadine (Claritin) 10 MG tablet TAKE 1 TABLET BY MOUTH EVERY DAY 90 tablet 1 5 Active Aspirin Low Dose 81 MG EC tabletIndication s:Type 2 diabetes mellitus without complication, without long-term current use of insulin (CMS/HCC) TAKE 1 TABLET (81 MG) BY MOUTH IN THE MORNING 90 tablet 3 5 Active magnesium oxide (Mag-Ox) 400 MG tablet TAKE 1 TABLET (400 MG) BY MOUTH IN THE MORNING 90 tablet 1 5 Active FreeStyle lancetsIndicatio ns:Type 2 diabetes mellitus without complication, without long-term current use of insulin (CMS/HCC) USE TO TEST 3 TIMES DAILY 100 each 11 5 Active Active Problems Problem Noted Date Diagnosed [...] [facility] Fractured dental sikh with loss of materi al 10/20/2023 Drug-induced [...] bypass surgery 2022 Overview (03/17/2023): 07/2022 at [facility] Chest pain on breathing 12/04/2022 Assessment & [...] Encounters Date Type Department Care Team Description [address] [address] Shawna Gamble MD Durable Medical Equipment (DME Request: Pull up Size Change/ Portable Fitness Pedals ) 2024 Telephone [facility] [address] [place] [address] Shawna Gamble MD Appointment Request 08/23/2024 Refill [facility] [address] [place] [phone] Shawna Gamble MD Type 2 diabetes mellitus without complication, without long-term current use of insulin ([facility]) 08/17/2024 Refill [facility] [address] [place] [address] Shawna Gamble MD 08/16/2024 Telephone [facility] [address] [place] [address] Shawna Gamble MD Nurse Triage 08/16/2024 Refill [facility] [address] [place] [address] Shawna Gamble MD Type 2 diabetes mellitus without complication, without long-term current use of insulin ([facility]) 07/12/2024 Refill [facility] [address] [place], [place] [phone] Shawna Gamble MD 07/07/2024 Telephone [facility] [address] [place] [address] Shawna Gamble MD Nurse Triage 06/30/2024 Orders Only [facility] [address] [place] [phone] Shawna Gamble MD from Last 3 Months Immunizations Immunization Administration Dates Next Due Hep B, adult [...] exists Lipid Panel 03/15/2024 03/15/2023, 02/15, 09/08/2021 Diabetes: Urine Protein Screening 07/20/2024 07/21/2023, 03/15/2023, 09/08/2021, Additional history exists Depression Screening 10/14/2024 10/15/2023, 10/15/19 24 SDOH Screening 10/14/2024 10/15/2023 Tobacco Screening 12/16/2024 12/17/2023 Mammogram 06/30/2025 06/30/2024, 02/0 09/2023, 03/13/2022, Additional history exists DTaP/Tdap/Td Vaccines (2 - Td or Tdap) [...] Procedure Name Priority Date/Time Associated Diagnosis Comments BI MAMMOGRAM SCREENING TOMOSYNTHESIS BILATERAL Routine 06/30/2024 2:15 PM EST POCT GLYCATED HEMOGLOBIN, TOTAL Routine 12/08/2023 3:41 PM EDT Type 2 diabetes mellitus with diabetic neuropathy, with long-term current use of insulin ([facility]) LIPID PANEL, STANDARD Routine 03/15/2023 12:17 PM EDT Type 2 diabetes mellitus with diabetic neuropathy, with long-term current use of insulin ([facility]) ALBUMIN, RANDOM URINE W/CREATININE Routine 03/15/2023 12:11 [...] Recently Relevant to Health Maintenance Results * BI Mammogram Screening Tomosynthesis Bilateral (06/30/2024 2:15 PM EST) Anatomical Region Laterality Modality Breast Bilateral Mammography 06/30/2024 2:15 PM EST Narrative 07/08/2024 1:56 PM EST ? [facility] [place] ? [address] ?[place] [address] ? Mammography Report ? Signed ? Patient: Jeet,Sonia ?MR#: [id number] ?? 5 ? : 1955 ?Acct:[id number] ? Age/Sex: 68 / F ?ADM Date: 02/14/25 ? Loc: HO.MAMMO ? Attending Dr: Shawna Gamble MD ? Ordering Physician: Shawna Gamble ?Results: 1Negative ? Date of Service: 06/30/24 ?Follow Up: 1 Year From Orig ?? inal Mammogram ? Procedure(s): MM tomosynthesis screening BI ?? Accession Number(s): [id number] ? cc: Shawna Gamble ? EXAMINATION: ?? MM SCREENING DIGITAL BREAST TOMOSYNTHESIS, BILATERAL ? CLINICAL INFORMATION: ? Screening. Asymptomatic. ? COMPARISON: ?? Mammography: Comparison is made with available priors ? TECHNIQUE: ?? Digital breast mammography with tomosynthesis is performed in both the ?? craniocaudal and mediolateral oblique views along with computer-aided ?? detection (CAD). ? FINDINGS: ?? There are scattered areas [...] due date for their next mammogram. ? Electronically signed by: ??Larissa Kendall DO ??07/08/2024 01:53 PM EST ?? RP ? Dictated By: ?Larissa Kendall DO ? Signed By: ?<Electronically signed by Larissa Kendall, DO in OV> ? 07/08/24 1353 ? DD/ 1415 ? TD/TT: 06/30/24 1426 ? Hydrographical Technical Officer: ? Procedure Note Donotpradipinterpreter, Image - 07/08/2024 [facility] [address] [place] [address] Mammography Report Signed Patient: Sonia MarcanoMR#: [id number] 5 : 4Acct:[id number] Age/Sex: 68 / FADM Date: 06/30/24 Loc: HO.MAMMO Attending Dr: Shawna Gamble MD Ordering Physician: Tera Gambleults: 1Negative Date of Service: 06/30/24Follow Up: 1 Year From Orig inal Mammogram Procedure(s): MM tomosynthesis screening BI Accession Number(s): [id number] cc: Shawna Gamble EXAMINATION: MM SCREENING DIGITAL BREAST TOMOSYNTHESIS, BILATERAL CLINICAL INFORMATION: Screening. Asymptomatic. COMPARISON: Mammography: Comparison is made with available priors TECHNIQUE: Digital breast mammography with tomosynthesis is performed in both the craniocaudal and mediolateral oblique views along with computer-aided detection (CAD). FINDINGS: There are scattered areas of fibroglandular [...] target due date for their next mammogram. Electronically signed by: Larissa Kendall DO 07/08/2024 01:53 PM EST Dictated By: Larissa Kendall DO Signed By: <Electronically signed by Larissa Kendall DO in OV> 07/08/24 1353 DD/ 1415 TD/TT: 06/30/24 1426 Hydrographical Technical Officer: Shawna Gamble MD IMG BI PROCEDURES Edited Resul t - Final * (ABNORMAL) POCT HGB A1C (12/08/2023 3:41 PM EDT) Hemoglobin A1C 8.8(A) 4.0 - 6.0 % Blood 12/08/2023 3:41 PM EDT Shawna Gamble MD POINT OF CARE TEST ENTER/EDIT ORDERABLES Final Result * Lipid Panel, Standard (03/15/2023 12:17 PM EDT) Triglycerides 105 <150 mg/dL [facility] Comment:Desirable Triglyceri de: less than 150 mg/dLBorderline High Triglyceride 150-199 mg/dLHigh Triglyceride: 200-499 mg/dLVery High Triglyceride: greater than or equal to 5OO mg/dL Cholesterol 128 <200 mg/dL [facility] Comment:Desirable Cholestero l: less than 200 mg/dLBorderline High Cholesterol: 200-239 mg/dLHigh Cholesterol: greater than 239 mg/dL LDL Cholesterol Calculated 60 <100 mg/dL [facility] Comment:Desirable LDL: less than 100 mg/dLNear Optimal/Above Optimal LDL: 110- 129 mg/dLBorderline High LDL: 130-159 mg/dLHigh LDL: 160-189 mg/dLVery High LDL: greater than or equal to 190 mg/dL HDL Cholesterol 47 >40 mg/dL [facility] Comment:Desirable HDL: great er than 40 mg/dL Note: This HDL assay may give artificially low results in patients with liver disease. Blood Venous blood specimen / Unknown 03/15/2023 12:17 PM EDT 03/15/2023 1:07 PM EDT Shawna Gamble MD LAB BLOOD ORDERABLES Final Res ult [facility] [address] [place] [phone] * (ABNORMAL) Albumin, Random Urine W/Creatinine (03/15/2023 12:11 PM EDT) Creatinine, Urine 108.28 mg/dL [facility] Microalbumin Urine 35.0 mg/L [facility] Microalbum Creatinine Ratio Ur 32.3(H) <30 ug/mg cr [facility] Comment:Albumin/Creatinine R atio Reference Ranges: Normal: < 30 ug/mg creatinine Microalbuminuria: 30 - 300 ug/mg creatinineClinical Albuminuria: > 300 ug/mg creatinine 03/15/2023 12:1 1 PM EDT 03/15/2023 1:08 PM EDT Shawna Gamble MD LAB URINE ORDERABLES Final Res ult Performing Organization Address [facility] Co de Phone Number [facility] [address] [place] [address] [phone] * Hepatitis C Ab (10/30/2022 9:18 AM EDT) Hepatitis C Antibody Nonreactive Nonreactive [facility] Comment:Antibodies to HCV no t detected; does not exclude early acuteHCV infection. 10/30/2022 9:18 AM EDT 10/30/2022 9:18 AM EDT [facility] External Provider LAB BLO OD ORDERABLES Final Result Performing Organization Address [facility] Co de Phone Number [facility] [address] [place] [phone] [phone] * Hm Colonoscopy (10/11/2020 9:13 AM EDT) Shahrzad Logan MD HEALTH MAINTENANCE Final Result from Last 3 Months or Most Recently Relevant to Health Maintenance [facility] [place] [facility] * Guarantor: Sonia Marcano Account Type Relation to Patient Date of Phone Billing Address Personal/Family Self [address] [facility] [place] Care Teams Drum Drier Operator Relationship Specialty Start Date End Date Shawna Gamble MD [address] [place] [address] [place] PCP - General Family Medicine 05/13/22
--- OUTSIDE RECORDS SUMMARY | 2024-09-27 12:52 | XMS_ITS | Encounter Summary ---
Author Organization [employer] Address [address] [facility] [address] [place] [address] Care Team Providers Care Industrial Machinery Mechanic Name Role Phone Shawna Gamble MD Primary Care Provider [phone] Encounter Details Date Type Department Care Team (Late st Contact Info) Description 03/15/2023 Orders Only [facility] [address] [place], [place] [phone] Shawna Gamble MD [address] [place], [place] [phone] Social History Tobacco Use Types Packs/Day Years [...] on filedocumented in this encounter Care Teams Industrial Machinery Mechanic Relationship Specialty Start Date End Date Shawna Gamble MD [address] [place] [phone] PCP - General Family Medicine 05/13/22 documented as of this encounter
[2024-09-27 13:12] LABS: Hematocrit 37.4 % (37.0-47.0); Hemoglobin 12.4 g/dl (12.0-16.0); Mean Corpuscular HGB Conc 33.2 g/dl (31.0-35.0); Mean Corpuscular Hemoglobin 28.9 pg (27.0-33.0); Mean Corpuscular Volume 87.2 fL (80.0-98.0); Platelet Count 238 X10*3/uL (160-400); Red Blood Count 4.29 X10*6/uL (4.20-5.50); Red Cell Distribution Width 14.5 % (11.0-16.0); White Blood Count 8.7 X10*3/uL (4.8-10.8)
[2024-09-27 14:17] LABS: Anion Gap 16 (12-20); Blood Urea Nitrogen 15 mg/dL (9-16); Calcium 9.4 mg/dL (8.4-10.2); Carbon Dioxide 28 mmol/L (22-29); Chloride 97 mmol/L (96-108); Estimated Glomerular Filt Rate 50; Glucose Random 400 mg/dL (60-115); Potassium 4.3 mmol/L (3.3-5.1); Sodium 137 mmol/L (135-145)
[2024-09-27 14:34] LABS: Folate 13.4 ng/mL (> or = 4.0); Vitamin B12 761 pg/mL (200-900)
== END 2024-09-27 12:22 | disposition home or self-care (01) ==
LOC: HO.LAB 12:21
PROVIDERS: PCP General Practice; Visit Provider Registered Nurse
DX: G31.84 Mild cognitive impairment of uncertain or unknown etiology (principal)
CPT/HCPCS: 36415; 80048; 82607; 82746; 84443; 85027

== ENCOUNTER 2024-10-20 10:09 | Outpatient (REF) | payer OTHER, SELFPAY ==
[2024-10-20 10:25] LABS: MANUAL DIFF FLAG NO
[2024-10-20 10:39] LABS: Basophils Absolute Auto 0.1 X10*3/uL (0.0-0.2); Eosinophils Absolute Auto 0.6 X10*3/uL (0.0-0.4); Hematocrit 34.7 % (37.0-47.0); Hemoglobin 11.7 g/dl (12.0-16.0); Imm Gran Abs Auto 0.03 X10*3/uL (0.00-0.03); Imm Gran Pct Auto 0.4 % (0.0-0.4); Lymphocytes Absolute Auto 3.1 X10*3/uL (1.2-4.9); Mean Corpuscular HGB Conc 33.7 g/dl (31.0-35.0); Mean Corpuscular Hemoglobin 29.5 pg (27.0-33.0); Mean Corpuscular Volume 87.4 fL (80.0-98.0); Mean Platelet Volume 11.2 fL (9.4-12.3); Monocytes Absolute Auto 0.8 X10*3/uL (0.1-1.2); Neutrophils Absolute Auto 3.4 x10*3/uL (2.0-8.3); Neutrophils Percent Auto 42.6 % (45-73); Platelet Count 222 X10*3/uL (160-400); Red Blood Count 3.97 X10*6/uL (4.20-5.50); Red Cell Distribution Width 14.4 % (11.0-16.0)
--- OUTSIDE RECORDS SUMMARY | 2024-10-20 10:55 | XMS_ITS | Data Portability ---
Author Organization [facility] Mobile Shareholder [facility], [place], Main Office Address [address] , [address] [place] [address] Care Team Providers Care Swimming Coach Name Role Phone DELMIS HEARD 2ND FLOOR [...] goals are met, likely 7-10 days Total cjm-gndv-uk-face time spent reviewing records today was 32 minutes/2 units. Not available 08/01/2022 19:41:07 Reason for Referral None Reported. Problems Name Problem SNOMED Code Status Onset Date Resolution Date Notes Provider Name and Address Organization Details Recorded Time Coronary arterioscle rosis 27767094 Active 2022 YOCASTA CHAMBERS PA-C [address], [address], [place], [address], [facility] [employer] 3 19:22:01 Essential hypertensio n 50481751 Active 2022 YOCASTA CHAMBERS PA-C [address], [address], [place], [address], [facility] [employer] 3 19:22:06 Dyslipidemi a 442945651 Active 2022 YOCASTA CHAMBERS PA-C [address], [address], [place], [address], [facility] 3 19:22:13 Type 2 diabetes mellitus with peripheral angiopathy 199004838 Active 2022 YOCASTA CHAMBERS PA-C [address], [address], [place], [address], [facility] [employer] 3 19:22:25 Peripheral neuropathy due to type 2 diabetes mellitus 9961355833988 Active 2022 YOCASTA CHAMBERS PA-C [address], [address], [place], [address], [facility] 3 19:22:33 Unintention al weight loss 039167774 Active 2022 YOCASTA CHAMBERS PA-C [address], [address], [place], [address], [facility] 3 19:22:40 Orthostatic hypotension 77636063 Active 2022 YOCASTA CHAMBERS PA-C [address], [address], [place], [address], [facility] 3 19:23:00 Hyponatremi a 43302587 Active 2022 YOCASTA CHAMBERS PA-C [address], [address], [place], [address], [facility] 3 19:23:09 Anemia 765065189 Active 2022 YOCASTA CHAMBERS PA-C [address], [address], [place], [address], [facility] 3 19:23:18 Chronic constipatio n 686814013 Active 2022 YOCASTA CHAMBERS PA-C [address], [address], [place], [address], [facility] 3 19:23:25 Seasonal allergy 886246232 Active 2022 VINOD DAVISC [address], [place], [address], [facility] 3 19:23:32 Stenosis of celiac artery 3173134416352 9101 Active 2022 YOCASTA CHAMBERS PA-C [address], [address], [place], [address], [facility] 3 19:23:44 Abdominal pain 80613523 Active 2022 VINOD DAVISC [address], [address], [place], [address], [facility] 3 19:24:04 Vitamin D deficiency 91383634 Active 2022 YOCASTA CHAMBERS PA-C [address], [place], [address], [facility] 3 19:24:12 Insomnia co-occurren t and due to medical condition 2011485669641 5 Active 2022 VINOD DAVISC [address], [address], [place], [address], [facility] 3 19:24:25 Hypomagnese arlen 874637014 Active 2022 YOCASTA CHAMBERS PA-C [address], [place], [address], [facility] 3 19:30:39 Intermitten t allergic asthma 8247830964658 9104 Active 2022 YOCASTA CHAMBERS PA-C [address], [address], [place], [address], [facility] 3 19:31:17 Coronary artery bypass grafts x 4 Active 2022 YOCASTA CHAMBERS PA-C [address], [address], [place], [address], [facility] 3 19:31:29 Type 2 diabetes mellitus 38418654 Active 2022 Nicci Womack MD [address], [place], [address], [facility] 3 16:26:34 Asthenia 80196018 Active 2022 Nicci Womack MD [address], [address], [place], [address], [facility] [employer] [facility] 3 16:37:01 Problem Notes None recorded. Medical Equipment None Reported. Allergies Allergen ID Allergen Name Allergen Category Reaction Reaction Severity Criticality Documentation Date Start Date Code Code System Note Provider Name and Address Organization Details Recorded Time 94097 Bactrim medicatio n hives Not available Not available 08/01/2022 09935 9 RxNorm ISAIAS DAVIS-C [address], [address], [place], [address], [facility] [employer] [facility] 3 17:55:34 39706 oxycodone medicatio n dyspnea itching Not available Not available Not available 08/01/2022 7804 RxNorm ISAIAS DAVIS-C [address], [place], [address], [facility] [employer] [facility] 3 17:56:03 63963 codeine medicatio n Not available Not available Not available 08/01/2022 2670 RxNorm amxie ty ISAIAS DAVIS-Sheri [address], [address], [place], [address], [facility] [employer] [facility] 3 17:56:14 08838 cortisone medicatio n itching Not available Not available 08/01/2022 2878 RxNorm ISAIAS DAVIS-C [address], [address], [place], [address], [facility] [employer] [facility] 3 17:56:28 61366 doxycycli ne Not available itching Not available Not available 08/01/2022 3640 RxNorm ISAIAS DAVIS-C [address], [place], [address], [facility] [employer] [facility] 3 17:56:41 08321 morphine medicatio n itching Not available Not available 08/01/2022 7052 RxNorm ISAIAS DAVIS-C [address], [place], [address], [facility] [employer] [facility] 3 17:56:51 12214 Product containin g penicilli n (product) medicatio n rash Not available Not available 08/01/2022 36810 8001 SNOMED YOCASTA CHAMBERS PA-C [address], [place], [address], [facility] 3 17:57:04 60969 tramadol medicatio n Not available Not available Not available 08/01/2022 04457 RxNorm anxie ty YOCASTA CHAMBERS PA-C [address] [facility], [address], [place], [address], [facility] 3 17:57:18 Vitals Date Recorded Body height Body mass index (BMI) Body weight Heart rate Respiratory rate Body temperature Oxygen saturation Oxygen saturation in Arterial blood by Pulse oximetry Systolic blood pressure Diastolic blood pressure Provider Name and Address Organization Details Last Updated DateTime 3 154.94 cm 25.5 kg/m2 67032.9 7 g 73 /min 17 /min 98.2 [degF] 100 % 100 % 146 mm[Hg] 59 mm[Hg] YOCASTA CHAMBERS PA-C [address], [place], [address], [facility] 3 17:46:47 Date Recorded Body height Heart rate Respiratory rate Body temperature Oxygen saturation Oxygen saturation in Arterial blood by Pulse oximetry Systolic blood pressure Diastolic blood pressure Provider Name and Address Organization Details Last Updated DateTime 3 154.94 cm 82 /min 16 /min 98.1 [degF] 97 % 97 % 127 mm[Hg] 78 mm[Hg] RAYMUNDO KIRK NP [address], [place], [address], [facility] 3 11:57:47 Date Recorded Body height Heart rate Respiratory rate Body temperature Oxygen saturation Oxygen saturation in Arterial blood by Pulse oximetry Systolic blood pressure Diastolic blood pressure Provider Name and Address Organization Details Last Updated DateTime 3 154.94 cm 80 /min 16 /min 98.4 [degF] 96 % 96 % 133 mm[Hg] 70 mm[Hg] RAYMUNDO IKRK NP [address], [place], [address], [facility] 3 14:33:50 Date Recorded Body height Body mass index (BMI) Body weight Heart rate Respiratory rate Body temperature Oxygen saturation Oxygen saturation in Arterial blood by Pulse oximetry Systolic blood pressure Diastolic blood pressure Provider Name and Address Organization Details Last Updated DateTime 3 154.94 cm 23.1 kg/m2 63645.2 7 g 84 /min 18 /min 97.9 [degF] 97 % 97 % 116 mm[Hg] 62 mm[Hg] Nicci Womack MD [address] [facility], [facility] [address], [place], [address], [facility] 3 16:02:43 Date Recorded Body height Heart rate Respiratory rate Body temperature Oxygen saturation Oxygen saturation in Arterial blood by Pulse oximetry Body mass index (BMI) Body weight Systolic blood pressure Diastolic blood pressure Provider Name and Address Organization Details Last Updated DateTime 3 154.94 cm 88 /min 16 /min 97.3 [degF] 98 % 98 % 22.7 kg/m2 16626.5 2 g 131 mm[Hg] 78 mm[Hg] RAYMUNDO KIRK NP [address] [facility], [facility] [address], [place], [address], [facility] 3 12:42:06 Social History Question Answer Notes LastModified by Organizat ion Details LastModified Time Tobacco Smoking Status Never Smoker YOCASTA CHAMBERS PA-C [address] [facility] [address], [place], [address], [facility] 08/01/2022 19:32:55 Do You Have An Advance Directive? Yes [email or web address] Information not available 08/03/2022 What Is Your Code Status? Full Code [email or web address] Information not available 08/01/2022 Where Do You Live? [facility] Bedroom On 2nd Floor, Railing Only On Left Information not available 08/07/2022 Legal Guardian? No [email or web address] Information not available 08/01/2022 Do You Have A Medical Power Of Education Analyst? Yes Not Invoked Information not available 08/07/2022 What Was The Date Of Your Most Recent Tobacco Screening? 08/01/2022 [email or web address] Information not available 08/01/2022 Do You Have An Out Of Hospital DNR? No [email or web address] Information not available 08/01/2022 Has Tobacco Cessation Counseling Been Provided? No N/A As Pt Is A Non-smoker Information not available 08/07/2022 Sex: Unknown Functional Status Question Answer Note LastModified by Organizat ion Details LastModified Time Do you use any illicit or recreational drugs? No [email or web address] Information not available 08/01/2022 Do you or have you ever used any other forms of tobacco or nicotine? No [email or web address] Information not available 08/01/2022 What is your level of alcohol consumption? None [email or web address] Information not available 08/01/2022 Mental Status None recorded. Family History Relationship Description Onset Age of this Age Resolved Age Notes LastModified by Organization Details LastModified Time Father Coronary arterioscler osis 75 [email or web address] Not available 2022 19:18:27 Mother Coronary arterioscler osis 72 [email or web address] Not available 2022 19:18:27 Medical History No medical history recorded. Gynecological HistoryNo gynecological history recorded. Obstetrics History GPAL:G 0 P 0 0 0 0 Immunizations Vaccine Type Date Status Note Provider Nam e and Address Organization Details Recorded Time SARS-COV-2 (COVID-19) vaccine, UNSPECIFIED [address] [facility] 07/31/2022 16:13:00 SARS-COV-2 (COVID-19) vaccine, UNSPECIFIED [address] [facility] 07/31/2022 16:13:09 Influenza, adjuvanted, quadrivalent, PF [facility] 13:05:32 Hep B, unspecified formulation [address] [facility] 07/21/2023 12:52:12 Tdap [address] [facility] 07/21/2023 12:52:31 Td(adult) unspecified formulation [address] [facility] 07/21/2023 12:52:50 Td(adult) unspecified formulation [address] [facility] 07/21/2023 12:52:59 Pneumococcal conjugate PCV [address] [facility] 07/21/2023 12:53:54 pneumococcal polysaccharide PPV23 [address] [facility] 07/21/2023 12:54:22 pneumococcal polysaccharide PPV23 [address] [facility] 07/21/2023 12:54:30 influenza, unspecified formulation [address] [facility] 07/21/2023 12:54:54 zoster, unspecified formulation 6 completed [facility] 07/21/2023 12:55:18 zoster, unspecified formulation [address] [facility] 07/21/2023 12:55:31 Past Encounters Encounter ID Performer Location Encounter Start Date Encounter Closed Date Diagnosis/Indication Diagnosis SNOMED-CT Code Diagnosis ICD10 Code Diagnosis Note [id number] JEREMI DAVIS [address] [place] [address] 08/01/2022 17:43:19 08/04/2022 08:34:27 Coronary arteriosclerosis 08684413 I25.10 now s/p 4-vessel CABGASA, BB, statin, PlavixMoni tor surgical incision sites - presently no evidence of infectionP t HAS CT surg f/u with Dr. Andre Pierre 08/10/22 at [facility] (listed as being at 0130 so either it's supposed to be 1130 or 1330 - need to clarify appointmen t time) [phone] 50Pt NEEDS cards f/u with Dr. Estuardo Rodríguez in 2-4 weeks [phone] 84Pt needs f/u cardiac rehab at [facility] after d/c - [id number] tive spirometer at bedside Abdominal pain 97079493 R10.9 postprandi alHas meds in placeattri buted to celiac artery stenosis but does NOT have mesenteric artery stenosis Essential hypertension 56329740 I10 Monitor BPs and adjust meds prn Dyslipidemia 161217445 E 78.5 statin Peripheral neuropathy due to type 2 diabetes mellitus 9395314846 107 E11.42 monitor sugars and adjust meds prnOff MADY for renal protection - was d/c'd during antecedent hospitaliz ationTight glycemic control necessary to promote wound healingon duloxetine with prn wayne Intermitte nt allergic asthma 7994804702 9979755 J45.20 prn Albuterol- consider adding spacer to maximize med delivery Insomnia c o-occurrent and due to medical condition 9188990888 9105 G47.01 Trazodonef /u prn Hypomagnesemia 372161411 E83.42 supplement d/c'd PTAupdate level with next lab draw Chronic constipation 236 642978 K59.09 scheduled and prn bowel meds Anemia 756323140 D64.9 acute-on-c hronic post-opdoe s not appear she required a transfusio nmonitor CBC Seasonal allergy 6562142 04 J30.2 Claritin (weakest in that class - consider Maricel if needs something stronger) Stenosis o f celiac artery 3285652586 0217005 I77.4 seen by vascular surg-f/u prn Unintentio nal weight loss 407312122 R63.4 RD consultMon itor weights Vitamin D deficiency 347 10992 E55.9 repletingo utpatient f/u with PCP Hyponatremia 87886259 E8 7.1 had w/u prior to admitfollo w divalents Orthostati c hypotension 01025847 I95.1 BB decreasedf /u prn At moderat e risk for fall 8349974652 46317010 Z91.89 PT/OT [id number] JEREMIAH MCINTOSH ORQUIDEA [address] [place] [address] [place] [address] 08/03/2022 11:47:26 08/05/2022 17:19:50 Coronary arteriosclerosis 09669380 I25.10 now s/p 4-vessel CABGmetopr olol er 12.5 mg dailyasa 81 mg dailyatorv astatin 80 mg dailyplavi x 75 mg dailytylen ol 975 mg [id number] r surgical incision sites - presently no evidence of infectionP t HAS CT surg f/u with Dr. Andre Pierre 08/10/22 at [facility] (listed as being at 0130 so either it's supposed to be 1130 or 1330 - need to clarify appointmen t time) [phone] 50Pt NEEDS cards f/u with Dr. Estuardo Rodríguez in 2-4 weeks [phone] 84Pt needs f/u cardiac rehab at [facility] after d/c - [id number] tive spirometer at bedside Essential hypertension 04971410 I10 Monitor BPs and adjust meds prn Dyslipidemia 561972580 E 78.5 atorvastat in 80 mg daily Peripheral neuropathy due to type 2 diabetes mellitus 8194478734 107 E11.42 monitor sugars and adjust meds prnOff MADY for renal protection - was d/c'd during antecedent hospitaliz ationTight glycemic control necessary to promote wound healingdul oxatine 20 mg dailygabap entin 600 mg q6hr prn Intermitte nt allergic asthma 2554376172 9125534 J45.20 prn Albuterol- consider adding spacer to maximize med delivery Insomnia c o-occurrent and due to medical condition 6555491250 9105 G47.01 Trazodone 100 mg hsf/u prn Hypomagnesemia 569314593 E83.42 supplement d/c'd PTAupdate level with next lab draw Chronic constipation 236 536666 K59.09 senna 17.2 hscolace dailyprn bowel meds Anemia 493249677 D64.9 acute-on-c hronic post-opdoe s not appear she required a transfusio nmonitor CBC Seasonal allergy 7450652 04 J30.2 Claritin 10- mg prn Stenosis o f celiac artery 5257148231 8287010 I77.4 seen by vascular surg-f/u prn Unintentio nal weight loss 810743975 R63.4 RD consultMon itor weights Vitamin D deficiency 347 70573 E55.9 D3 1000 twice weeklyoutp atient f/u with PCP Hyponatremia 64990957 E8 7.1 had w/u prior to admitfollo w divalents Orthostati c hypotension 16534022 I95.1 BB decreasedf /u prn At moderat e risk for fall 5566323213 63909169 Z91.89 PT/OT Type 2 lou betes mellitus with peripheral angiopathy 596622502 E11.51 metformin 1000 mg bidlispro sliding scale bidpoc glucose bid [id number] JEREMIAH MCINTOSH [address] [place] [address] 08/05/2022 14:11:45 08/10/2022 14:23:48 Coronary arteriosclerosis 14006508 I25.10 now s/p 4-vessel CABGmetopr olol er 12.5 mg dailyasa 81 mg dailyatorv astatin 80 mg dailyplavi x 75 mg dailytylen ol 975 mg [id number] r surgical incision sites - presently no evidence of infectionP t HAS CT surg f/u with Dr. Andre Pierre 08/10/22 at [facility] (listed as being at 0130 so either it's supposed to be 1130 or 1330 - need to clarify appointmen t time) [phone] 50Pt NEEDS cards f/u with Dr. Estuardo Rodríguez in 2-4 weeks [phone] 84Pt needs f/u cardiac rehab at [facility] after d/c - [phone] [id number] tive spirometer at bedside Peripheral neuropathy due to type 2 diabetes mellitus 9071053214 107 E11.42 monitor sugars and adjust meds prnOff MADY for renal protection - was d/c'd during antecedent hospitaliz ationTight glycemic control necessary to promote wound healingdul oxatine 20 mg dailygabap entin 600 mg q6hr prn [id number] MD DELMIS Castrejon [address] [place] [address] 08/07/2022 15:12:17 08/10/2022 14:43:19 Coronary arteriosclerosis 56491265 I25.10 S/P CABG x4, recovering well.Incis ions clean and dry and almost back to baseline function.C ontinue metoprolol ER 12.5 mg qd, ASA 81 mg qd, atorvastat in 80 mg qd, and plavix 75 mg qd (for 1 yr).Contin ue APAP 975 mg q 6 hrs scheduled for incisional pain.Salma nue I beau.F/U with Dr. Andre Pierre, CT surgery, 08/10/ at 1:30 PM, [phone] 50Pt needs cards f/u with Dr. Estuardo Rodríguez in 2-4 weeks [phone] 84Pt needs f/u cardiac rehab at [facility] after d/c - [phone] x [phone] Essential hypertension 68211112 I10 Remains in good control on only metoprolol 12.5 mg.Isosorb kiet, lisinopril , and HCTZ were d/c'd inpt due to low BPs.Monito r BPs and adjust meds prn. Dyslipidemia 480926299 E 78.49 Continue atorvastat in 80 mg qd.Monitor labs as outpt. Intermitte nt allergic asthma 0248230886 5295754 J45.20 No current sxs.Contin ue albuterol 2 puffs q 6 hrs prn.Monito r resp. status. Insomnia c o-occurrent and due to medical condition 9662441434 9105 G47.01 Continue trazodone 100 mg qhsMonitor sleep patterns. Chronic constipation 236 918168 K59.09 Continue bowel meds as ordered.Mo nitor bowel function. Anemia 423035682 D64.89 Acute on chronic, from surgical blood loss.Remai toya stableMoni tor labs.Trans fuse for hgb <7 Seasonal allergy 1329079 04 J30.2 Continue loratadine 10 mg qd prnMonitor sxs. Stenosis o f celiac artery 1707225768 4912210 I77.4 F/U with vascular surg as planned Unintentio nal weight loss 209052249 R63.4 Reportedly lost 100# without trying.But remaining stable at this timeDietic nain consultMon itor weights Vitamin D deficiency 347 28009 E56.8 Continue D3 1000 IU twice weeklyMoni tor levels as outpt. Hyponatremia 96609885 E8 7.1 Resolved inpt.Monit or labs Type 2 lou betes mellitus 81678533 E11.21 Home sugars much improved since wt. [...] and pre-supper . Use SSI prn. Asthenia 14802427 R53.1 Was deconditio giovanni, but much improved.C ontinue PT/OT for strengthen ing, balance, gait training, safety and function.C ontinue fall precaution s.Monitor for safety.Helga n for d/c 08/11 Abdominal pain 57455641 R10.816 R11.0 Having trouble eating due to nausea and abd. pain.Will schedule carafate QID (AC and qhs) and Zofran 4 mg TID.Contin ue omeprazole 40 mg qd.Monitor sxs.Though t to possibly be mesenteric ischemia. [id number] JEREMIAH MCINTOSH [address] [place] [address] 08/10/2022 12:41:32 08/12/2022 14:50:55 Coronary arteriosclerosis 65343558 I25.10 now s/p 4-vessel CABGmetopr olol er 12.5 mg dailyasa 81 mg dailyatorv astatin 80 mg dailyplavi x 75 mg dailytylen ol 975 mg [id number] r surgical incision sites - presently no evidence of infectionP t HAS CT surg f/u with Dr. Andre Pierre 08/10/22 at [facility] (listed as being at 0130 so either it's supposed to be 1130 or 1330 - need to clarify appointmen t time) [phone] 50Pt NEEDS cards f/u with Dr. Estuardo Rodríguez in 2-4 weeks [phone] 84Pt needs f/u cardiac rehab at [facility] after d/c - [id number] tive spirometer at bedside Essential hypertension 50012505 I10 Monitor BPs and adjust meds prn Dyslipidemia 096125844 E 78.5 atorvastat in 80 mg daily Peripheral neuropathy due to type 2 diabetes mellitus 5671662924 107 E11.42 monitor sugars and adjust meds prnOff MADY for renal protection - was d/c'd during antecedent hospitaliz ationTight glycemic control necessary to promote wound healingdul oxatine 20 mg dailygabap entin 600 mg q6hr prn Intermitte nt allergic asthma 7091353034 3114938 J45.20 prn Albuterol- consider adding spacer to maximize med delivery Insomnia c o-occurrent and due to medical condition 8223149766 9105 G47.01 Trazodone 100 mg hsf/u prn Hypomagnesemia 263405387 E83.42 supplement d/c'd PTAupdate level with next lab draw Chronic constipation 236 877888 K59.09 senna 17.2 hscolace dailyprn bowel meds Anemia 528819609 D64.9 acute-on-c hronic post-opdoe s not appear she required a transfusio nmonitor CBC Seasonal allergy 4188435 04 J30.2 Claritin 10- mg prn Stenosis o f celiac artery 5730072473 9984675 I77.4 seen by vascular surg-f/u prn Unintentio nal weight loss 455752036 R63.4 RD consultMon itor weights Vitamin D deficiency 347 64253 E55.9 D3 1000 twice weeklyoutp atient f/u with PCP Hyponatremia 05863260 E8 7.1 had w/u prior to admitfollo w divalents Orthostati c hypotension 91851650 I95.1 BB decreasedf /u prn At moderat e risk for fall 0406394228 72029536 Z91.89 PT/OT Type 2 lou betes mellitus with peripheral angiopathy 845380119 E11.51 metformin 1000 mg bidlispro sliding scale bidpoc glucose bid Health Concerns Section Related Observation LastModified by Organization Detai ls LastModified Time None Recorded Concern Status LastModified by Organization Details LastModified Time None Recorded Advance Directives Directive Y: Payers Encounter Date Sequence Insurance Name Policy Number Policy Swartz Covered Member ID Swartz Member ID Guarantor Name 08/01/2022 1 [facility] - DOS PRIOR TO 2022 - DUAL ELIGIBLE (MEDICARE REPLACEMENT/ADV ANTAGE - HMO) Sonia Marcano [id number] Sonia Marcano 08/03/2022 1 [facility] - DOS PRIOR TO 2022 - DUAL ELIGIBLE (MEDICARE REPLACEMENT/ADV ANTAGE - HMO) Sonia Marcano [id number] Sonia Marcano 08/05/2022 1 [facility] - DOS PRIOR TO 2022 - DUAL ELIGIBLE (MEDICARE REPLACEMENT/ADV ANTAGE - HMO) Sonia Marcano [id number] Sonia Marcano 08/07/2022 1 [facility] - DOS PRIOR TO 2022 - DUAL ELIGIBLE (MEDICARE REPLACEMENT/ADV ANTAGE - HMO) Sonia Marcano [id number] Sonia Marcano 08/10/2022 1 [facility] - DOS PRIOR TO 2022 - DUAL ELIGIBLE (MEDICARE REPLACEMENT/ADV ANTAGE - HMO) Sonia Marcano [id number] Sonia Marcano Notes Date Note Type Note Provider Name and Address Organization Details Recorded Time 3 text/html Pt seen today for initial review.Seen with Sp-speaking staff 66-y/[facility] F [facility] [place] where she was hospitalized 07/20-07/31/22 for CAD [...] subacute rehab pt PPI use: on since [employer] Meds: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 No N/V/D. YOCASTA CHAMBERS PA-C [address] [facility], [address], [place], [address], [facility] 08/01/2022 19:49:54 3 text/html seen today for acute rounding visit-66-y/o F admitted from [facility] [place] where she was hospitalized 07/20-07/31/22 for CAD [...] well, yonis intact RAYMUNDO KIRK NP [address] [facility], [address], [place], [address], [facility] 08/03/2022 15:37:40 3 text/html seen today for acute rounding visit, CAOx3 sitting up in bed, lungs clear, chest incision healing well, medial knee incisions healing well no s/s infection yonis intact RAYMUNDO KIRK NP [address] [facility], [address], [place], [address], [facility] 08/05/2022 14:36:03 3 text/html This is [...] and seasonal allergies/allergic asthma. Nicci Womack MD [address] [place] [address], [address], [place], [address], [facility] 08/07/2022 18:29:32 3 text/html seen today [...] to be removed RAYMUNDO KIRK NP [address] [facility], [address], [place], [address], [facility] - [employer] 08/10/2022 12:46:34 OBGyn Episode No OBEpisode recorded.
[2024-10-20 11:17] LABS: Erythrocyte Sedimentation Rate 9 MM/HR (0-20)
[2024-10-20 11:21] LABS: C Reactive Protein < 0.10 mg/dL (< or = 0.50); Cholesterol 103 mg/dL (<200); HDL Cholesterol 40 mg/dL (>40); LDL Cholesterol Calculated 44 mg/dL (<100); Triglycerides 98 mg/dL (<150)
[2024-10-20 12:02] LABS: Lactate Dehydrogenase 146 U/L (122-220)
[2024-10-20 13:03] LABS: Creatinine Urine 54.62 mg/dL; Microalbum/Creatinine Ratio Ur 137.3 ug/mg cr (<30)
== END 2024-10-20 10:10 | disposition home or self-care (01) ==
LOC: HO.LAB 10:09
PROVIDERS: PCP General Practice; Visit Provider General Practice
DX: E11.40 Type 2 diabetes mellitus with diabetic neuropathy, unspecified (principal); N18.30 Chronic kidney disease, stage 3 unspecified; D63.1 Anemia in chronic kidney disease; R53.83 Other fatigue
CPT/HCPCS: 36415; 80061; 82043; 82570; 83615; 83735; 85025; 85652; 86140

== ENCOUNTER 2024-10-27 12:31 | Outpatient (REF) | payer OTHER, SELFPAY ==
[2024-10-27 14:14] LABS: Anion Gap 19 (12-20); Blood Urea Nitrogen 18 mg/dL (9-16); Calcium 9.5 mg/dL (8.4-10.2); Carbon Dioxide 27 mmol/L (22-29); Chloride 96 mmol/L (96-108); Estimated Glomerular Filt Rate 45; Glucose Random 113 mg/dL (60-115); Magnesium 1.3 mg/dL (1.6-2.6); Potassium 4.5 mmol/L (3.3-5.1); Sodium 137 mmol/L (135-145)
== END 2024-10-27 12:32 | disposition home or self-care (01) ==
LOC: HO.LAB 12:31
PROVIDERS: PCP General Practice; Visit Provider General Practice
DX: E83.42 Hypomagnesemia (principal); N18.30 Chronic kidney disease, stage 3 unspecified; D63.1 Anemia in chronic kidney disease
CPT/HCPCS: 36415; 80048; 83735

== ENCOUNTER 2024-10-28 15:31 | Emergency (ER) | payer OTHER, SELFPAY ==
[2024-10-28] VITALS (7 sets, daily range): BP systolic 122–172; BP diastolic 65–97; PULSE 70–87; RESP 13–18; TEMP 36.6–36.7; O2SAT 99–100; BMI 24.6
--- NOTE | ~2024-10-28 | CT_ITS ---
CLINICAL HISTORY: fall, head strike CT cervical spine without contrast Comparison: None available Findings: No acute fracture of the cervical spine. Straightening of the cervical lordosis. No significant listhesis. Disc osteophyte complexes with mild spinal canal stenosis include C4-C5 and C5-C6. Foraminal narrowing is most pronounced in the right at C5-C6 (moderate). Ligament calcifications and facet arthropathy are multifocal. Relative hyper ossification of the arytenoid cartilage with least partial fusion. No paraspinal hematoma. Vascular calcifications noted. Metal streak artifacts noted. Mild scarring of the partially imaged lung apices. IMPRESSION: No acute fracture of the cervical spine. This document has been electronically signed by: Ulises Mackenzie MD on 10/28/2024 19:12:22
--- NOTE | ~2024-10-28 | CT_ITS ---
CLINICAL HISTORY: trauma CT chest with contrast Comparison: CT of the abdomen and pelvis from 10/28/2024 Findings: Calcified and noncalcified plaque include imaged aorta and its branches. Mild/borderline cardiomegaly. No mediastinal hematoma or acute aortic injury. Post sternotomy changes noted. Mild mediastinal fluid without enlarged mediastinal lymphadenopathy. Small pericardial effusion. Bibasilar atelectasis and/or pneumonitis. Findings of pneumonia also considered. Atelectasis includes discoid atelectasis. Scarring and emphysematous changes are moderate. Please refer to separate report for imaged/included abdomen ; with focal fat of the liver noted. Post sternotomy changes. Mild imaged rib deformities appear old/chronic. IMPRESSION: 1. Bilateral pulmonary opacities are nonspecific and may reflect pneumonitis/pneumonia, particularly in the lower lobes. Recommend attention on follow-up to ensure resolution. 2. No mediastinal hematoma or acute aortic injury. This document has been electronically signed by: Ulises Mackenzie MD on 10/28/2024 19:39:01
--- NOTE | ~2024-10-28 | CT_ITS ---
CLINICAL HISTORY: fall, head strike CT head without contrast Comparison: None Findings: No acute intracranial hemorrhage. No midline shift or hydrocephalus. Mild-moderate white matter lesions likely due to small-vessel ischemic disease. No large arterial territorial infarction by CT. Mild volume loss is generalized. Dural calcifications and vascular calcifications noted. Mild mucosal thickening of the imaged paranasal sinuses. Imaged mastoid air cells are well aerated. No acute skull fracture. IMPRESSION: No acute intracranial abnormality by CT. This document has been electronically signed by: Ulises Mackenzie MD on 10/28/2024 19:29:17
--- NOTE | ~2024-10-28 | XR_ITS ---
CLINICAL HISTORY: fall, pain Two views of the left hip and AP pelvis. Comparison: None Findings: No acute fracture or dislocation. Mild degenerative changes of the bilateral hips. Extensive arterial vascular calcifications. There is a metallic foreign body overlying the left femoral head consistent with a vascular closure device. Extensive fecal loading within the distal colon. IMPRESSION: No acute injury of the pelvis or left hip identified. This document has been electronically signed by: Chay Vincent MD on 10/28/2024 17:13:58
--- NOTE | ~2024-10-28 | XR_ITS ---
CLINICAL HISTORY: fall, pain 2 view left femur Comparison: None Findings: There are extensive arterial vascular calcifications. There is a vascular stent in the distal superficial femoral artery. Surgical clips along the medial aspect of the upper left knee present. No knee effusion. No fracture deformity of the left femur identified. No radiopaque foreign body. IMPRESSION: 1. Normal left femur This document has been electronically signed by: Chay Vincent MD on 10/28/2024 17:13:46
--- NOTE | ~2024-10-28 | CT_ITS ---
CLINICAL HISTORY: left flank pain, on xarelto, r o retroperitoneal h CT abdomen and pelvis with contrast Comparison: None Findings: Mild bibasilar atelectasis/pneumonitis. Pneumonia also considered . Additional opacities of discoid atelectasis and scarring also present. Post sternotomy changes noted. Vascular and valve calcifications with mild/borderline cardiomegaly. Diffuse steatotic change of the liver. The gallbladder is surgically absent. The adrenal glands are within upper limits of normal. The spleen is nonenlarged. Mild to moderate volume loss of the pancreas with borderline main duct dilatation by CT. No retroperitoneal hematoma or hydronephrosis. Wall thickening of the stomach particularly antrum pylorus nonspecific. No small bowel obstruction. Severe stool burden present majority of the large intestine. Mixed density with increased density in the cecum may be from dense ingested material. Fluid in the cecum can be seen with diarrhea type illnesses and mild colitis. Appendicolith noted of the tip of the appendix without findings of acute appendicitis. Calcified and noncalcified plaque include imaged aorta and its branches. No enlarged lymphadenopathy by CT. Uterus deviates to the left. No adnexal soft tissue mass by CT. Mild-moderate distention of the urinary bladder. Multiple phleboliths are noted in the pelvis. No acute pelvic fracture of the partially imaged pelvis. Degenerative changes include imaged hips and spine, with vacuum disc phenomenon at L4-L5 and L5-S1. Facet arthropathy is multifocal. Post sternotomy changes are partially imaged. IMPRESSION: 1. Bibasilar pulmonary opacities with likely pneumonitis. 2. No hydronephrosis or retroperitoneal hematoma. 3. Wall thickening of the imaged stomach is nonspecific by CT. No small bowel obstruction. 4. Severe stool burden. 5. Appendicolith present without findings of acute appendicitis. This document has been electronically signed by: Ulises Mackenzie MD on 10/28/2024 19:34:04
--- NOTE | 2024-10-28 15:56 | ED_ITS ---
HPI - Fall General Chief Complaint: Fall Stated Complaint: fall, headstrike, L shoulder/ hip pain Time Seen by Provider: 10/28/24 15:35 Source: patient Mode of arrival: ambulatory Limitations: no limitations History of Present Illness ED Provider: Stephanie Carreon APRN HPI Narrative: 69-year-old female with a history of diabetes, HTN, HLD, anemia, pancreatic insufficiency, GERD, constipation, CAD, on xarelto unsure reasion here with complaints of left rib pain, left mid back pain, left hip pain after a fall which occurred just [employer]. Patient reports she stood up, felt dizzy, both legs gave out and she fell backwards hitting her left side and posterior head. No LOC. Unable to get up without help post fall. Related Data Home Medications ?Medication ?Instructions ?Recorded ?Confirmed atorvastatin 80 mg tablet 80 mg PO DAILY 02/12/20 10/22/23 metformin 500 mg tablet 500 mg PO DAILY 02/12/20 06/17/23 aspirin 81 mg tablet,delayed 81 mg PO DAILY 07/10/20 06/17/23 release (Adult Low Dose Aspirin) trazodone 100 mg tablet 100 mg PO BEDTIME 07/19/20 06/17/23 metoprolol tartrate 25 mg tablet 1 tab PO BID 03/16/21 06/17/23 clopidogrel 75 mg tablet 75 mg PO DAILY 11/03/22 06/17/23 sertraline 50 mg tablet 50 mg PO DAILY 12/09/22 06/17/23 amitriptyline 50 mg tablet 50 mg PO BEDTIME 06/17/23 06/17/23 mirtazapine 45 mg tablet 45 mg PO BEDTIME 06/17/23 06/17/23 duloxetine 20 mg capsule,delayed 20 mg PO DAILY 10/22/23 10/22/23 release furosemide 20 mg tablet 20 mg PO DAILY 10/22/23 10/22/23 gabapentin 600 mg tablet 600 mg PO QID 10/22/23 10/22/23 lisinopril 40 mg tablet 40 mg PO DAILY 10/22/23 10/22/23 loratadine 10 mg tablet 10 mg PO DAILY 10/22/23 10/22/23 magnesium oxide 400 mg (241.3 mg 400 mg PO QAM 10/22/23 10/22/23 magnesium) tablet rivaroxaban 2.5 mg tablet (Xarelto) mg PO 10/22/23 Previous Rx's ?Medication ?Instructions ?Recorded ferrous gluconate 324 mg (37.5 mg 324 mg PO DAILY 90 days #90 tabs 09/20/23 iron) tablet hydrocodone 5 mg-acetaminophen 325 1 tab PO Q8H PRN pain #15 tabs 11/06/23 mg tablet cholecalciferol (vitamin D3) 250 250 mcg PO 2XW 90 days #26 caps 02/10/24 mcg (10,000 unit) capsule omeprazole 40 mg capsule,delayed 40 mg PO DAILY #90 caps 06/06/24 release docusate sodium 100 mg capsule 100 mg PO DAILY #90 caps 08/16/24 sennosides 8.6 mg tablet (senna) 17.2 mg (2 x 8.6 mg) PO BEDTIME 09/19/24 PRN for constipation #180 tabs acetaminophen 650 mg 650 mg PO Q8H PRN pain #30 tabs 10/28/24 tablet,extended release (Tylenol Arthritis Pain) lidocaine 5 % topical patch 1 patch topical DAILY #30 ea 10/28/24 Allergies Allergy/AdvReac Type Severity Reaction Status Date / Time cortisone [CORTISONE] Allergy Intermediate RASH Verified 10/28/24 15:51 hydrocortisone Allergy Intermediate Rash Verified 10/28/24 15:51 morphine [Morphine] Allergy Intermediate RASH, Verified 10/28/24 15:51 ITCHING oxycodone [From Percocet] Allergy Intermediate Nausea and Verified 10/28/24 15:51 Vomiting Penicillins Allergy Intermediate ITCHING Verified 10/28/24 15:51 sulfamethoxazole Allergy Intermediate Rash Verified 10/28/24 15:51 [From Bactrim] trimethoprim [From Bactrim] Allergy Intermediate Rash Verified 10/28/24 15:51 acetaminophen [From Percocet] Allergy Mild Unknown Verified 10/28/24 15:51 azithromycin Allergy Mild Unknown Verified 10/28/24 15:51 doxycycline Allergy Mild Unknown Verified 10/28/24 15:51 tramadol Allergy Mild Unknown Verified 10/28/24 15:51 tylenol codeine Allergy Mild Unknown Uncoded 10/28/24 15:51 Review of Systems 2 Review of Systems: Yes all other systems are reviewed and are negative Constitutional: Constitutional: Reports no additional constitutional complaints, Denies body ache(s), Denies chills, Denies fever(s), Denies headache(s) and Denies weakness Eyes: Eyes: Reports no additional eye complaints and Denies change in vision ENT: Reports system reviewed and no additional complaints, except as documented, Denies dizziness, Denies headache(s), Denies nasal congestion, Denies nasal discharge and Denies neck pain Cardiovascular: Cardiovascular: Reports no additional cardiovascular complaints, Reports chest pain (chest wall pain ), Denies leg edema and Denies dyspnea Respiratory: Respiratory: Reports no additional respiratory complaints, Denies cough and Denies dyspnea Gastrointestinal: Gastrointestinal: Reports no additional gastrointestinal complaints, Denies abdominal pain, Denies diarrhea, Denies nausea and Denies vomiting Genitourinary: Genitourinary: Reports no additional female genitourinary complaints and Denies urinary incontinence Musculoskeletal: Musculoskeletal: Reports no additional musculoskeletal complaints, Reports back pain, Reports arthralgias, Denies joint swelling, Denies limited range of motion, Denies neck pain, Denies numbness and Denies tingling Integumentary/Breasts: Skin/Breast: Reports system reviewed and no additional complaints, except as docu and Denies rash Neurologic: Reports system reviewed and no additional complaints, except as documented, Denies Abnormal speech present, Denies dizziness, Denies headache(s), Denies numbness, Denies tingling and Denies weakness PMFSH Past Medical History Attestation statement: The following information was validated with the patient. Source: old records reviewed and nursing notes reviewed Medical History Anemia Rheumatic arteritis Neuropathy History of heart attack Diabetes Pancreatic insufficiency GERD (gastroesophageal reflux disease) Surgical History History of open heart surgery Hx of cardiac catheterization Hx of heart artery stent Hx of colonoscopy History of esophagogastroduodenoscopy (EGD) History of bilateral carpal tunnel release History of cholecystectomy H/O colonoscopy with polypectomy Family History Family History Father No problems noted. Mother No problems noted. Brother No problems noted. Sister Breast cancer Lymphoma Sister No problems noted. Sister No problems noted. Sister No problems noted. Social History Social History Household Members: None Are you a primary customer care coordinator to a significant other at home: No Do you presently have visiting nurse or other home services: No Alcohol intake: never Patient Tobacco Use Status: Never used Tobacco Smoked in Last 30 Days: No Use of substances other than those prescribed or required for medical reasons: No Advance Directives: No Advance Directives Information Provided: Yes Do you have a plan to hurt others: No Plan Current occupational status: unemployed and disabled Physical Exam 2 Vital Signs: Vital Signs: Last Vital Signs Temp 98.0 F 10/28/24 17:24 Pulse 73 10/28/24 17:24 Resp 13 10/28/24 17:24 BP 172/76 H 10/28/24 17:24 Pulse Ox 100 10/28/24 17:24 O2 Del Method Room Air 10/28/24 17:24 BMI result Body Mass Index 24.6 Const: General: cooperative, healthy appearing, comfortable and no acute distress Orientation/consciousness: patient oriented x3 Limitations: no limitations HEENT: Head: Yes normal to inspection, No Garcia's sign and No raccoon eyes Ears: hearing grossly normal bilaterally and TM's normal bilaterally General nose exam: Normal external nose present Face and sinus: Yes normal facial exam Mouth: Normal oral and palatal mucosa present Throat: Yes posterior oropharynx normal, Yes tonsils normal and Yes uvula midline Eyes: General: appearance normal, both eyes and all related structures P upils: Equal, round and reactive pupils present Neck: Other: No cervical midline tenderness, step-offs or deformities Neck: Yes normal visual inspection Chest: Other: There is tenderness on palpation to the left posterior chest wall no crepitus, ecchymosis or deformity noted Chest palpation & inspection: normal inspection of the chest Resp: Effort & Inspection: normal respiratory effort Auscultation: clear to auscultation bilaterally Cardio: Rate: regular rate Rhythm: regular rhythm Peripheral pulses: P eripheral pulses 2+ throughout GI: Inspection: Yes normal to inspection Palpation (GI): Soft to palpation and nontender Auscultation: normal bowel sounds Back/Spine/Pelvis: Other: There is tenderness the left lumbar and thoracic soft tissue with no ecchymosis noted. Thoracic/Lumbar Spine: thoracic and lumbar spine normal to inspection Skin: General skin exam: no rashes or lesions noted Neuro: General: patient oriented x3, moves all extremities, no focal motor deficits, normal sensation to monofilament and Unable to assess gait Cranial nerves: Yes CN's II-XII intact bilaterally, Yes Equal, round and reactive pupils present, Yes Bilaterally intact EOM present, Yes Nystagmus not present, Yes Normal facial strength present and Yes Midline tongue present Cognition (Neuro): normal cognition Speech: No Abnormal speech present Gait exam (Neuro): Unable to assess gait Motor exam (neuro): 5/5 motor strength present throughout Sensory Exam: Normal double simultaneous stimulation for sensation Extrem: Other: Pain on palpation to left lateral hip with FROM, no shortening or rotation or deformity Course Course Course Narrative: [id number]-Sign out to Barbie ESPARZA pending CT scans Reevaluation(s) Reevaluation #1: 1942 - Sign-out was given to me pending CT scans. CT cervical spine revealing no acute fracture of the cervical spine, head CT revealing no acute intracranial abnormality, abdomen and pelvis revealing bibasilar pulmonary opacities with likely pneumonitis, wall thickening of the stomach, nonspecific, no small bowel obstruction, no hydronephrosis or retroperitoneal hematoma, severe stool burden, there is an appendicolith present without findings of acute appendicitis. Chest CT does show bilateral pulmonary opacities, nonspecific, may reflect pneumonitis / pneumonia, particularly in the lower lobes. She has had no recent cough, fevers, or leukocytosis. She does state that she has a history of seasonal allergies. discussed with patient to follow-up with her PCP, and given incentive spirometer. Also given strict return precautions. She understands and agrees with plan, patient stable for discharge. Medications Administered Discontinued Medications Generic Name Dose Route Start Last Admin Trade Name Freq PRN Reason Stop Dose Admin Iohexol 85 ml 10/28/24 18:20 10/28/24 18:21 Iohexol 350 Mg/Ml 100 Ml Infus..Btl IV 10/28/24 18:21 85 ml ONCE ONE Administration Medical Decision Making Medical Decision Making MDM Narrative: 69-year-old female with a history of diabetes, HTN, HLD, anemia, pancreatic insufficiency, GERD, constipation, CAD, on xarelto unsure reason here with complaits of left rib pain, left mid back pain, left hip pain after a fall which occurred just [employer]. Patient reports she stood up, felt dizzy, both legs gave out and she fell backwards hitting her left side and posterior head. No LOC. Unable to get up without help post fall. Normal neuro exam with no focal deficits VSS Pain on palpation to left lateral hip, left posterior ribs and mid back with no crepitus, deformity or ecchymosis noted. Will need labs, EKG, CT chest/abdomen/head/neck, x-rays left hip, orthos Differential Diagnosis Differential Diagnoses: The differential diagnosis associated with the presentation includes Dizziness-anemia, electrolyte abnormality, orthostatic hypotension, ACS, arrhythmia Trauma-fracture, contusion, retroperitoneal hemorrhage, ICH Admission/Observation Consideration of admission/observation: Escalation of care including admission/observation considered Lab Data MDM Lab Attestation statement: I reviewed the patient's lab results. 10/28/24 17:17 10/28/24 17:17 Labs: Lab Results 10/28/24 Range/Units 17:17 WBC 9.9 (4.8-10.8) X10*3/uL RBC 3.63 L (4.20-5.50) X10*6/uL Hgb 10.9 L (12.0-16.0) g/dl Hct 31.4 L (37.0-47.0) % MCV 86.5 (80.0-98.0) fL MCH 30.0 (27.0-33.0) pg MCHC 34.7 (31.0-35.0) g/dl RDW 14.4 (11.0-16.0) % Plt Count 212 (160-400) X10*3/uL MPV 10.6 (9.4-12.3) fL Immature Gran % (Auto) 0.4 (0.0-0.4) % Neut % (Auto) 69.0 (45-73) % Lymph % (Auto) 20.1 (20-40) % [place] % (Auto) 6.4 (2-11) % Eos % (Auto) 3.3 (0-4) % Baso % (Auto) 0.8 (0-2) % Lymph # (Auto) 2.0 (1.2-4.9) X10*3/uL [place] # (Auto) 0.6 (0.1-1.2) X10*3/uL Eos # (Auto) 0.3 (0.0-0.4) X10*3/uL Baso # (Auto) 0.1 (0.0-0.2) X10*3/uL Abs Immat Gran (auto) 0.04 H (0.00-0.03) X10*3/uL Absolute Neuts (auto) 6.8 (2.0-8.3) x10*3/uL Absolute Nucleated RBC 0.000 (0.0-0.012) X10*3/uL Nucleated RBC % (auto) 0.0 (0.0-0.2) /100WBC Sodium 138 (135-145) mmol/L Potassium 3.8 (3.3-5.1) mmol/L Chloride 98 (96-108) mmol/L Carbon Dioxide 25 (22-29) mmol/L Anion Gap 19 (12-20) BUN 23 H (9-16) mg/dL Creatinine 1.12 (0.5-1.4) mg/dL Estim Creat Clear Calc 41.1 Estimated GFR 48 Random Glucose 108 (60-115) mg/dL Calcium 9.6 (8.4-10.2) mg/dL Total Bilirubin 0.4 (0.0-1.0) mg/dL Direct Bilirubin 0.1 (0.0-0.5) mg/dL AST 35 H (5-31) U/L ALT 29 (0-31) U/L Alkaline Phosphatase 97 (39-117) U/L Troponin I High Sens < 2.7 (<3.5-17.0) ng/L Total Protein 6.6 (6.5-8.0) g/dL Albumin 4.1 (3.5-5.0) g/dL Independent Interpretation I performed an independent interpretation of an: EKG, Plain X-Ray and CT Scan Interpretation: I independently viewed the x-ray and agree with the radiology report I independently reviewed the EKG which shows normal sinus rhythm with a rate of 70, normal IN, normal QRS, normal QT Radiology Impression Discussion of test interpretation with radiology: I have reviewed the radiologist's reading. Radiologist Impression: [address] [address] XRay Report Signed Patient: Sonia Marcano MR#: [id number] : 1955 Acct:[id number] Age/Sex: 69 / F ADM Date: 10/28/24 Loc: HO.ED Attending Dr: Ordering Physician: Stephanie Carreon NP Date of Service: 10/28/24 Procedure(s): XR femur LT 2V Accession Number(s): [id number] cc: Shawna Gamble; Stephanie Carreon WRITING TUTOR~ CLINICAL HISTORY: fall, pain 2 view left femur Comparison: None Findings: There are extensive arterial vascular calcifications. There is a vascular stent in the distal superficial femoral artery. Surgical clips along the medial aspect of the upper left knee present. No knee effusion. No fracture deformity of the left femur identified. No radiopaque foreign body. IMPRESSION: 1. Normal left femur [place] [address] XRay Report Signed Patient: Sonia Marcano MR#: [id number] : 1955 Acct:[id number] Age/Sex: 69 / F ADM Date: 10/28/24 Loc: .ED Attending Dr: Ordering Physician: Stephanie Carreon NP Date of Service: 10/28/24 Procedure(s): XR hip LT w PEL1V Accession Number(s): [id number] cc: Shawna Gamble; Stephanie Carreon WRITING TUTOR~ CLINICAL HISTORY: fall, pain Two views of the left hip and AP pelvis. Comparison: None Findings: No acute fracture or dislocation. Mild degenerative changes of the bilateral hips. Extensive arterial vascular calcifications. There is a metallic foreign body overlying the left femoral head consistent with a vascular closure device. Extensive fecal loading within the distal colon. IMPRESSION: No acute injury of the pelvis or left hip identified. This document has been electronically signed by: Chay Vincent MD on 10/28/2024 17:13:58 Findings: Calcified and noncalcified plaque include imaged aorta and its branches. Mild/borderline cardiomegaly. No mediastinal hematoma or acute aortic injury. Post sternotomy changes noted. Mild mediastinal fluid without enlarged mediastinal lymphadenopathy. Small pericardial effusion. Bibasilar atelectasis and/or pneumonitis. Findings of pneumonia also considered. Atelectasis includes discoid atelectasis. Scarring and emphysematous changes are moderate. Please refer to separate report for imaged/included abdomen ; with focal fat of the liver noted. Post sternotomy changes. Mild imaged rib deformities appear old/chronic. IMPRESSION: 1. Bilateral pulmonary opacities are nonspecific and may reflect pneumonitis/pneumonia, particularly in the lower lobes. Recommend attention on follow-up to ensure resolution. 2. No mediastinal hematoma or acute aortic injury. This document has been electronically signed by: Ulises Mackenzie MD on 10/28/2024 19:39:01 Dictated By: Ulises Mackenzie MD Findings: Mild bibasilar atelectasis/pneumonitis. Pneumonia also considered . Additional opacities of discoid atelectasis and scarring also present. Post sternotomy changes noted. Vascular and valve calcifications with mild/borderline cardiomegaly. Diffuse steatotic change of the liver. The gallbladder is surgically absent. The adrenal glands are within upper limits of normal. The spleen is nonenlarged. Mild to moderate volume loss of the pancreas with borderline main duct dilatation by CT. No retroperitoneal hematoma or hydronephrosis. Wall thickening of the stomach particularly antrum pylorus nonspecific. No small bowel obstruction. Severe stool burden present majority of the large intestine. Mixed density with increased density in the cecum may be from dense ingested material. Fluid in the cecum can be seen with diarrhea type illnesses and mild colitis. Appendicolith noted of the tip of the appendix without findings of acute appendicitis. Calcified and noncalcified plaque include imaged aorta and its branches. No enlarged lymphadenopathy by CT. Uterus deviates to the left. No adnexal soft tissue mass by CT. Mild-moderate distention of the urinary bladder. Multiple phleboliths are noted in the pelvis. No acute pelvic fracture of the partially imaged pelvis. Degenerative changes include imaged hips and spine, with vacuum disc phenomenon at L4-L5 and L5-S1. Facet arthropathy is multifocal. Post sternotomy changes are partially imaged. IMPRESSION: 1. Bibasilar pulmonary opacities with likely pneumonitis. 2. No hydronephrosis or retroperitoneal hematoma. 3. Wall thickening of the imaged stomach is nonspecific by CT. No small bowel obstruction. 4. Severe stool burden. 5. Appendicolith present without findings of acute appendicitis. This document has been electronically signed by: Ulises Mackenzie MD on 10/28/2024 19:34:04 Dictated By: Ulises Mackenzie MD [address] [address] [address] Scan Report Signed Patient: Sonia Marcano MR#: [id number] : 1955 Acct:[id number] Age/Sex: 69 / F ADM Date: 10/28/24 Loc: HO.ED Attending Dr: Ordering Physician: Stephanie Carreon NP Date of Service: 10/28/24 Procedure(s): CT head/brain wo IV con Accession Number(s): [id number] cc: Shawna Gamble; Stephanie Carreon WRITING TUTOR~ Report Number: [id number]: Total DLP = 620.31 mGy-cm CLINICAL HISTORY: fall, head strike CT head without contrast Comparison: None Findings: No acute intracranial hemorrhage. No midline shift or hydrocephalus. Mild-moderate white matter lesions likely due to small-vessel ischemic disease. No large arterial territorial infarction by CT. Mild volume loss is generalized. Dural calcifications and vascular calcifications noted. Mild mucosal thickening of the imaged paranasal sinuses. Imaged mastoid air cells are well aerated. No acute skull fracture. IMPRESSION: No acute intracranial abnormality by CT. This document has been electronically signed by: Ulises Mackenzie MD on 10/28/2024 19:29:17 Dictated By: Ulises Mackenzie MD [address] [address] [address] Scan Report Signed Patient: Sonia Marcano MR#: [id number] : 1955 Acct:[id number] Age/Sex: 69 / F ADM Date: 10/28/24 Loc: HO.ED Attending Dr: Ordering Physician: Stephanie Carreon NP Date of Service: 10/28/24 Procedure(s): CT cervical spine wo IV con Accession Number(s): [id number] cc: Shawna Gamble; Stephanie Carreon WRITING TUTOR~ Report Number: [id number]: Total DLP = 284.79 mGy-cm CLINICAL HISTORY: fall, head strike CT cervical spine without contrast Comparison: None available Findings: No acute fracture of the cervical spine. Straightening of the cervical lordosis. No significant listhesis. Disc osteophyte complexes with mild spinal canal stenosis include C4-C5 and C5-C6. Foraminal narrowing is most pronounced in the right at C5-C6 (moderate). Ligament calcifications and facet arthropathy are multifocal. Relative hyper ossification of the arytenoid cartilage with least partial fusion. No paraspinal hematoma. Vascular calcifications noted. Metal streak artifacts noted. Mild scarring of the partially imaged lung apices. IMPRESSION: No acute fracture of the cervical spine. This document has been electronically signed by: Ulises Mackenzie MD on 10/28/2024 19:12:22 Dictated By: Ulises Mackenzie MD Independent Historian Clinical information obtained from an independent historian. History obtained from or confirmed by: EMS Discharge Plan Discharge Clinical Impression: Contusion of left hip, Contusion of rib on left side, Falls Patient Disposition: Home, Self-Care Instructions: Fall Prevention (ED), Hip Contusion (ED), Rib Contusion (ED) Additional Instructions: You were seen in the emergency department due to a fall. Your workup today was reassuring. Please drink plenty of fluids get plenty of rest. Heat or ice to the areas of pain can help with your symptoms. Gentle stretching, and massage can also help. You will likely be sore tomorrow. You may apply lidocaine patches as needed to the areas of pain. Do not apply heat or ice directly to the regions of pain. Take Tylenol as needed for pain. If any new or worsening symptoms occur including but not limited to severe chest pain, shortness of breath, dizziness,please seek emergent care. Your CT of your chest did show pneumonitis, this is likely due to your allergies you are having, however please follow-up with your primary care. Please also use incentive spirometer 5-6 times per day to prevent pneumonia. Prescriptions: New acetaminophen [Tylenol Arthritis Pain] 650 mg tablet extended release 650 mg PO Q8H PRN (Reason: pain ) Qty: 30 0RF lidocaine 5 % adhesive patch,medicated 1 patch topical DAILY Qty: 30 0RF Rx Instructions: leave on most painful area for up to 12 hrs No Action ferrous gluconate 324 mg (37.5 mg iron) tablet 324 mg PO DAILY 90 Days Qty: 90 1RF hydrocodone-acetaminophen 5-325 mg tablet 1 tab PO Q8H PRN (Reason: pain) Qty: 15 0RF Rx Instructions: Partial Fill upon patient request. cholecalciferol (vitamin D3) 250 mcg (10,000 unit) capsule 250 mcg PO 2XW 90 Days Qty: 26 1RF omeprazole 40 mg capsule,delayed release(DR/EC) 40 mg PO DAILY Qty: 90 1RF docusate sodium 100 mg capsule 100 mg PO DAILY Qty: 90 1RF sennosides [senna] 8.6 mg tablet 17.2 mg PO BEDTIME PRN (Reason: for constipation) Qty: 180 1RF metoprolol tartrate 25 mg tablet 1 tab PO BID gabapentin 600 mg tablet 600 mg PO QID magnesium oxide 400 mg (241.3 mg magnesium) tablet 400 mg PO QAM furosemide 20 mg tablet 20 mg PO DAILY lisinopril 40 mg tablet 40 mg PO DAILY loratadine 10 mg tablet 10 mg PO DAILY duloxetine 20 mg capsule,delayed release(DR/EC) 20 mg PO DAILY Xarelto 2.5 mg tablet PO atorvastatin 80 mg tablet 80 mg PO DAILY metformin 500 mg tablet 500 mg PO DAILY aspirin [Adult Low Dose Aspirin] 81 mg tablet,delayed release (DR/EC) 81 mg PO DAILY trazodone 100 mg tablet 100 mg PO BEDTIME sertraline 50 mg tablet 50 mg PO DAILY mirtazapine 45 mg tablet 45 mg PO BEDTIME amitriptyline 50 mg tablet 50 mg PO BEDTIME clopidogrel 75 mg tablet 75 mg PO DAILY Print Language: Kazakh
--- NOTE | 2024-10-28 16:39 | ECG_ITS ---
Test Reason : dizziness, pre fall Blood Pressure : */* mmHG Vent. Rate : 70 BPM Atrial Rate : 70 BPM P-R Int : 170 ms QRS Dur : 86 ms QT Int : 382 ms P-R-T Axes : 45 46 35 degrees QTcB Int : 412 ms Normal sinus rhythm with sinus arrhythmia Normal ECG When compared with ECG of 22-Oct-2023 00:21, No significant change was found Referred By: Stephanie Carreon Electronically Signed By: DONNY ROSARIO MD
--- NOTE | 2024-10-28 17:03 | PC.NURSE ---
patient very difficult stick, this nurse and provider attempted multiple times to get iv access, US trained provider to attempt to get access.
[2024-10-28 17:21] LABS: MANUAL DIFF FLAG NO
[2024-10-28 17:24] LABS: Basophils Absolute Auto 0.1 X10*3/uL (0.0-0.2); Basophils Percent Auto 0.8 % (0-2); Eosinophils Absolute Auto 0.3 X10*3/uL (0.0-0.4); Eosinophils Percent Auto 3.3 % (0-4); Hematocrit 31.4 % (37.0-47.0); Hemoglobin 10.9 g/dl (12.0-16.0); Imm Gran Abs Auto 0.04 X10*3/uL (0.00-0.03); Imm Gran Pct Auto 0.4 % (0.0-0.4); Lymphocytes Percent Auto 20.1 % (20-40); Mean Corpuscular HGB Conc 34.7 g/dl (31.0-35.0); Mean Corpuscular Volume 86.5 fL (80.0-98.0); Mean Platelet Volume 10.6 fL (9.4-12.3); Monocytes Absolute Auto 0.6 X10*3/uL (0.1-1.2); Monocytes Percent Auto 6.4 % (2-11); Neutrophils Absolute Auto 6.8 x10*3/uL (2.0-8.3); Platelet Count 212 X10*3/uL (160-400); Red Blood Count 3.63 X10*6/uL (4.20-5.50); Red Cell Distribution Width 14.4 % (11.0-16.0); White Blood Count 9.9 X10*3/uL (4.8-10.8)
[2024-10-28 17:42] LABS: Alanine Aminotransferase 29 U/L (0-31); Albumin Level 4.1 g/dL (3.5-5.0); Alkaline Phosphatase 97 U/L (39-117); Anion Gap 19 (12-20); Aspartate Amino Transferase 35 U/L (5-31); Bilirubin Direct 0.1 mg/dL (0.0-0.5); Bilirubin Total 0.4 mg/dL (0.0-1.0); Blood Urea Nitrogen 23 mg/dL (9-16); Calcium 9.6 mg/dL (8.4-10.2); Carbon Dioxide 25 mmol/L (22-29); Chloride 98 mmol/L (96-108); Creatinine Clr Calc Pharmacy 41.1; Estimated Glomerular Filt Rate 48; Glucose Random 108 mg/dL (60-115); Potassium 3.8 mmol/L (3.3-5.1); Sodium 138 mmol/L (135-145); Total Protein 6.6 g/dL (6.5-8.0)
[2024-10-28 17:59] LABS: Troponin-I High Sensitivity < 2.7 ng/L (<3.5-17.0)
[2024-10-28] MEDS: iohexoL 350 MG/ML 100 ML INFUS..BTL 85 ML IV (18:21)
[2024-10-28] MEDS: Lidocaine 4 % Patch ADH..PATCH 1 PATCH TRANSDERMA (20:34)
[2024-10-28] MEDS: Acetaminophen 325 MG TABLET 650 MG PO (20:34)
--- NOTE | 2024-10-28 21:04 | PC.NURSE ---
c/o left rib pain, lido patch applied. no SOB. d/c'd with family member via wheelchair.
== END 2024-10-28 20:30 | disposition home or self-care (01) ==
PROVIDERS: Nurse Practitioner Family; Emergency Provider Emergency Medicine; PCP General Practice
DX: S70.02XA Contusion of left hip, initial encounter (principal); S20.212A Contusion of left front wall of thorax, initial encounter; W18.39XA Other fall on same level, initial encounter; E11.9 Type 2 diabetes mellitus without complications; I10 Essential (primary) hypertension; E78.5 Hyperlipidemia, unspecified; D64.9 Anemia, unspecified; Y93.89 Activity, other specified; Y92.009 Unspecified place in unspecified non-institutional (private) residence as the place of occurrence of the external cause; Y99.9 Unspecified external cause status; Z79.02 Long term (current) use of antithrombotics/antiplatelets; Z79.84 Long term (current) use of oral hypoglycemic drugs; Z79.82 Long term (current) use of aspirin; Z79.899 Other long term (current) drug therapy
CPT/HCPCS: 36415; 70450; 71260; 72125; 73502; 73552; 74177; 80048; 80076; 84484; 85025; 93005; 99284; Q9967

== ENCOUNTER → 2024-10-28 15:54 | Outpatient (BNV) | payer OTHER, SELFPAY | PROVIDERS: Emergency Provider Emergency Medicine; PCP General Practice; Visit Provider Radiology Diagnostic Radiology | DX: R91.8 Other nonspecific abnormal finding of lung field (principal); K56.41 Fecal impaction; K38.1 Appendicular concretions; S09.90XA Unspecified injury of head, initial encounter; M25.552 Pain in left hip; M79.652 Pain in left thigh | CPT/HCPCS: 70450; 71260; 72125; 73502; 73552; 74177 ==

== ENCOUNTER → 2024-10-28 16:39 | Outpatient (BNV) | payer OTHER, SELFPAY | PROVIDERS: Emergency Provider Emergency Medicine; PCP General Practice; Visit Provider Internal Medicine Cardiovascular Disease | DX: R42 Dizziness and giddiness (principal) | CPT/HCPCS: 93010 ==

== ENCOUNTER 2024-11-03 13:11 | Outpatient (REF) | payer OTHER, SELFPAY ==
--- OUTSIDE RECORDS SUMMARY | 2024-11-03 13:14 | XMS_ITS | Clinical Summary ---
Author Organization [facility] Address [address] [place] [address] Care Team Providers Care Tester Operator Helper Name Role Phone Unavailable Primary Care Provider [...]
== END 2024-11-03 13:12 | disposition home or self-care (01) ==
LOC: HO.HHCLNP 13:11
PROVIDERS: Visit Provider Nurse Practitioner
DX: R30.0 Dysuria (principal)
CPT/HCPCS: 87086

== ENCOUNTER 2024-11-07 06:53 | Outpatient (REF) | payer OTHER, SELFPAY ==
[2024-11-07 07:50] LABS: Magnesium 1.6 mg/dL (1.6-2.6)
== END 2024-11-07 06:54 | disposition home or self-care (01) ==
LOC: HO.LAB 06:53
PROVIDERS: PCP General Practice; Visit Provider General Practice
DX: R79.0 Abnormal level of blood mineral (principal)
CPT/HCPCS: 36415; 83735

== ENCOUNTER 2024-12-28 14:01 | Outpatient (AMB) | payer OTHER, SELFPAY ==
--- NOTE | 2024-12-28 14:08 | MHC.OFFVIS ---
Vital Signs 12/28/24 14:10 Height 5 ft 2 in Weight 130 lb 1.164 oz BMI 23.8 BP 115/59 L Blood Pressure Location Lt brachial Position Sitting Pulse 73 Intake Visit Reasons: anemia Intake Note: Sonia presents in the office as a for anemia. CC: sometimes she states she has constipation and other times she has diarrhea - pains in the stomach. 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 Allergies cortisone (CORTISONE) Allergy (Intermediate, Verified 06/07/25 10:17) RASH hydrocortisone Allergy (Intermediate, Verified 06/07/25 10:17) Rash morphine (Morphine) Allergy (Intermediate, Verified 06/07/25 10:17) RASH, ITCHING oxycodone (From Percocet) Allergy (Intermediate, Verified 06/07/25 10:17) Nausea and Vomiting Penicillins Allergy (Intermediate, Verified 06/07/25 10:17) ITCHING sulfamethoxazole (From Bactrim) Allergy (Intermediate, Verified 06/07/25 10:17) Rash trimethoprim (From Bactrim) Allergy (Intermediate, Verified 06/07/25 10:17) Rash acetaminophen (From Percocet) Allergy (Mild, Verified 06/07/25 10:17) Unknown azithromycin Allergy (Mild, Verified 06/07/25 10:17) Unknown doxycycline Allergy (Mild, Verified 06/07/25 10:17) Unknown tramadol Allergy (Mild, Verified 06/07/25 10:17) Unknown tylenol codeine Allergy (Mild, Uncoded 02/27/25 15:56) Unknown Medication List - Last Reconciled 12/28/24 by Van Guzman MD acetaminophen ER (Tylenol Arthritis Pain) 650 mg PO Q8H PRN amitriptyline 100 mg (2 x 50 mg) PO BEDTIME 90 days aspirin (Adult Low Dose Aspirin) 81 mg PO DAILY atorvastatin 80 mg PO DAILY docusate sodium 100 mg PO DAILY duloxetine 20 mg PO DAILY empagliflozin (Jardiance) 10 mg PO DAILY ferrous gluconate 324 mg PO QAM furosemide 20 mg PO DAILY hydrocodone-acetaminophen 5-325 mg 1 tab PO Q8H PRN lidocaine 5% 1 patch topical DAILY lisinopril 40 mg PO DAILY loratadine 10 mg PO DAILY magnesium oxide 400 mg PO QAM metformin ER 1,000 mg PO BID metoprolol tartrate 1 tab PO BID omeprazole 40 mg PO DAILY pilocarpine HCl 5 mg PO TID rivaroxaban (Xarelto) mg PO sennosides (senna) 17.2 mg (2 x 8.6 mg) PO BEDTIME PRN sertraline 50 mg PO DAILY trazodone 100 mg PO BEDTIME HPI HPI anemia: Details: FU GI clinic visit for this 69-year-old Irish speaking female with abdominal pain. Pt is followed in GI for abdominal pain and bloating with intermittent nausea, dysphagia and unintentional weight loss. Cardiac catheterization on 12/17/21 at [facility] which showed blockages per pt. Last clinic visit was in Jun, 2023. Pt has been followed by Pat Degroot since 2015 and Joanne Busch NP since 10/2018 for abdominal pain, constipation followed by diarrhea and elevated lipase levels (upto 229) 03/2015 Weighed 175 lbs with BMI of 31 10/2018 patient weighed 155 lb with BMI of 27.45 02/2019? weighed 158 lbs with BMI of 27.99 Her wt has been fluctuating between 135 and 124 lbs over the past year. TODAY'S VISIT: Accompanied by her GLUE SPREADING MACHINE OPERATOR. Doing a little better - lately getting increased acid and LLQ pain. LLQ pain is intermittent, 7/10 in intensity and feels the pain. Pain increasing on pushing on her stomach. Pain resolves spontaneously gradually. Can have pain on some days and not other days. Eating more fruits which is helping with constipation. Sometimes no BM x 3 days and then she can go Taking Senna 2 tab at bedtime. Notes abd pain even after she goes to the bathroom. PAST VISITS: Pt is accompanied by her DILCeleste who interpreted for the patient. EGD results were reviewed. Pt has gained 22 lbs over the past 7 months BNP was elevated so some of the wt gain can be associated with fluid retention - scheduled to see the Machine Silver Stripper on 07/01/23. Saw Neurology 2 weeks ago and prescribed Amitriptyline and scheduled for an MRI of the head next week. Continues to have nausea, vomiting, abdominal pain and diarrhea (had constipation in the past) Wt loss of 9 lbs over the past 6 weeks Had six BMs on Wednesday and Wednesday. Constantly throwing up. On some days she can eat small amounts of food Other days she can eat small amounts of food. Had a lot of vomiting on 10/05/22. Had Cardiac bypass surgery on 07/20/22 at [facility] Discharged to Rehab and has been home for a week. Has postoperative anemia which is improving. Denies change in abd pain after the surgery. Notes constipation and had three episodes of diarrhea last week. Has a BM every 5 days and needs to renew her prescription for Елена and Senna. Taking MOM and Trulance. She feels food remains in her stomach even after she has a BM or after vomiting Notes pain when she takes medication Has been vomiting recently Has a BM 3 to 4 times a day when she takes her medication. Takes Trulance every other day - has diarrhea if she takes it every day. Notes left sided abdominal pain - sometimes constant and sometimes it comes and goes. Abd pain can increase to 9/10 intensity Sometimes has pain when she eats. Has constipation and last BM was on 03/16/22. Unable to take Linzess since she notes nausea and abd pain after taking the Linzess Denies fever, chills or sweating. She has noted increased acid and has been throwing up. Her throat swells up and butler. Notes a new pain in the LUQ which feels like a punch Every time she eats, she feels she is not digesting her food and she feels it in her stomach. She has been taking Tylenol and excedrin Prescribed medications for Migraine and not taking it any more since she had a reaction to the medcations (shaking and tingling of both hands) Had abdominal pain with vomiting 2 weeks and unable to eat. Pain lasted 2 days and was unable to eat for 2 days Called her Physician and had IV fluids in her house. Continues to have some early satiety. Medication is helping with constipation (pt has son who she prefers to be the scientologist. (Rebel Having Migraine HAs - 1-2 times a week for the past year. Takes tylenol and requesting other medication - advised to contact her PCP's office. I am having some pain in the stomach. When I place food in the mouth, I get nausea and am unable to continue eating Also complains of continued bloating and gas. Has pain whenever she presses on her stomach. Has a BM daily with intermittent straining. No BM for 4-5 days. Colonoscopy results reviewed. Lost another 4 lbs over the past 3 months (135 to 131 lbs). Linzess is helping with the constipation - has a BM every 3 days. Has intermittent bad abdominal pain - 2-3 times a week. Pain is less frequent than in the past. Sometimes has a good appetite and sometimes does not feel hungry. Denies dysphagia. Taking liquids, soups and takes glucerna (vanilla & strawberry) once a week (has nausea when she drinks) Pt developed COVID infection/pneumonia in February - did not need?hospitalization IMAGING STUDIES:?12/22/[address] SCAN SHOWED: Atherosclerotic disease. No aneurysm. Calcified plaque and moderate stenosis at the origin of the celiac axis. The SMA and CORBIN are patent. Mild left renal artery stenosis. ? ?08/07/20 a gastric emptying study was normal: 1 hour 73% (normal 37%-90%) 2 hours 33% (normal 30%-60%) 3 hours 6% 4 hours 2% (normal 0%-10%) 08/05/20 ABD MRI SHOWED: GASTROINTESTINAL TRACT: There is stool throughout the colon suggestive of constipation. No bowel obstruction.? No ascites or fluid collection. ABDOMINAL WALL: No significant hernia is appreciated. LYMPH NODES: No lymphadenopathy. IMPRESSION: Normal-appearing liver. Stool throughout the colon suggestive of constipation. 04/06/[address] SCAN SHOWED: 1. Mild wall prominence of the urinary bladder without adjacent inflammatory change. Findings may be due to underdistention. Early cystitis could be considered in the appropriate clinical setting. 2. No hydronephrosis or nephrolithiasis. 3. No bowel wall thickening or associated inflammatory change. No small or large bowel obstruction. Unremarkable appendix. 4. No intra-abdominal mass, lymphadenopathy, or ascites. ENDOSCOPIC STUDIES: 06/04/23 EGD SHOWED: STOMACH: Mild gastric antral erythema with a few 4-5 mm chronic appearing erosions (likely due to aspirin) with small amounts of heme. Biopsies were obtained from the antrum and body of the stomach. Plan: Above findings were reviewed with the patient and Gastritis handout was given in the discharge area BIOPSIES SHOWED: A. Stomach, antrum, biopsy: Antral-type mucosa with mild chronic inactive inflammation; no Helicobacter organisms seen. B. Stomach, body, biopsy: Oxyntic mucosa with mild chronic inactive inflammation; no Helicobacter organisms seen 10/11/20 COLONOSCOPY SHOWED: No polyps were detected. Patchy erythema in the right colon random biopsies were obtained Moderate diverticulosis seen in the sigmoid colon Moderate hemorrhoids on retroflexed exam. Plan:? Patient has an appointment on 12/02/20 in the GI Clinic with Van Guzman M.D. Repeat Colonoscopy interval based on path results - in 10 years if biopsies are normal BIOPSIES SHOWED:? Colon, right, biopsy:? Colonic mucosa within normal limits. COMMENT: Diagnostic features of microscopic colitis are not seen. 08/30/20 EGD showed: STOMACH:? Gastritis DUODENUM:? Benign-appearing nodule in the descending duodenum. Plan:? Patient has an appointment on 09/19/20 in the GI Clinic with Van Guzman M.D.-. Above findings were reviewed with the patient and GERD and [Gastritis] handouts were given in the discharge area A.? Small bowel, biopsy:? Duodenal mucosa within normal limits. B.? Duodenum, nodule, biopsy:? Clinically nodular duodenal mucosa within normal limits. C.? Stomach, antrum, biopsy:? Antral-type mucosa with mild chronic inactive inflammation; no Helicobacter organisms seen. 04/2016 colonoscopy was performed by Dr. Curry and was negative with an excellent prep [facility] Medical History (Updated 05/23/25 @ 21:00 by Neha Rodrigues DPM) Onycholysis Anemia Rheumatic arteritis Neuropathy History of heart attack Diabetes Pancreatic insufficiency GERD (gastroesophageal reflux disease) Surgical History History of open heart surgery Hx of cardiac catheterization Hx of heart artery stent Hx of colonoscopy History of esophagogastroduodenoscopy (EGD) History of bilateral carpal tunnel release History of cholecystectomy H/O colonoscopy with polypectomy Family History Father No problems noted. Mother No problems noted. Brother No problems noted. Sister Breast cancer Lymphoma Sister No problems noted. Sister No problems noted. Sister No problems noted. Social History Household Members: None Are you a primary caregiver services home to a significant other at home: No Do you presently have visiting nurse or other home services: No Alcohol intake: never Patient Tobacco Use Status: Never used Tobacco Current occupational status: unemployed and disabled Review of Systems Const All systems reviewed & are unremarkable except as noted in HPI and below Physical Exam Vital Signs: Last Vital Signs Pulse 73 12/28/24 14:10 BP 115/59 L 12/28/24 14:10 BMI result Body Mass Index 23.8 Const General: no acute distress Nutritional Appearance: average body habitus Orientation/consciousness: patient oriented x3 Limitations: language barrier and ambulation with walker HEENT Head: Yes normal to inspection Ears: hearing grossly normal bilaterally Eyes Sclerae: sclerae normal Pupils: Equal, round and reactive pupils present Neck Neck: Yes normal visual inspection Chest Chest palpation & inspection: normal inspection of the chest Resp Effort & Inspection: normal respiratory effort Auscultation: clear to auscultation bilaterally Cardio Palpation: normal PMI Rate: regular rate Rhythm: regular rhythm Heart sounds: S1 normal heart sound present, S2 normal heart sound present and no murmurs GI Palpation (GI): Soft to palpation, nontender and No hepatosplenomegaly present Auscultation: normal bowel sounds Rectal Exam - Female: deferred Skin General skin exam: no rashes or lesions noted Neuro General: patient oriented x3, gait normal and moves all extremities Cranial nerves: Yes Equal, round and reactive pupils present Psych Appearance: grossly normal Mental Status: mental status grossly normal Assessment & Plan Assessment & Plan (1) GERD (gastroesophageal reflux disease): Code(s): K21.9 - Gastro-esophageal reflux disease without esophagitis Category: Medical (2) Pancreatic insufficiency: Code(s): K86.89 - Other specified diseases of pancreas Category: Medical (3) Diarrhea: Comment: Negative stool studies 2018 Code(s): R19.7 - Diarrhea, unspecified Category: Medical (4) Nausea and vomiting: Code(s): R11.2 - Nausea with vomiting, unspecified Category: Medical (5) Elevated lipase: Comment: 07/10/20 18:48 Likely related to IDDM versus Hydrocholorthiazide Lipase 127 H 09/2018 229 (from old system) 10/2018 191 MRI ABD 07/2020 LIVER, GALLBLADDER, AND BILIARY TREE: The liver is normal in size, smooth in contour, and normal in signal. No focal hepatic lesion or biliary ductal dilatation is present. The gallbladder is nondistended identified. PANCREAS: Unremarkable. Code(s): R74.8 - Abnormal levels of other serum enzymes Category: Medical (6) Chronic constipation: Code(s): K59.09 - Other constipation Category: Medical (7) Dysphagia: Code(s): R13.10 - Dysphagia, unspecified Category: Medical (8) Elevated LFTs: Code(s): R79.89 - Other specified abnormal findings of blood chemistry Category: Medical (9) Anemia: Code(s): D64.9 - Anemia, unspecified Category: Medical Plan 69 year-old Irish speaking female seen for FU of abdominal pain, bloating with intermittent nausea, dysphagia and unintentional weight loss. Pt was diagnosed with DM at age 14 yrs.? She has chronic mild elevation of lipase for the past few yrs.? Stool studies were negative for WBC, C Diff Toxin and O&P.? A gastric emptying study was normal. Abd MRI showed stool throughout the colon suggestive of constipation without bowel obstruction, ascites or fluid collection. Pt was advised to hold off taking cholestyramine and start taking Linzess once daily (since she is having constipation as noted on her recent MRI scan) . Inflammatory markers, pancreatic elastase and IgG4 levels were normal 10/11/20 colonoscopy showed moderate diverticulosis and no polyps were detected.? Random biopsies obtained from the colon were negative for microscopic colitis. Patient notes improvement in constipation with Linzess - dose of Linzess was increased without significant change in symptoms. Pt continues to have intermittent episodes of upper abdominal pain, nausea and vomiting managed with IV hydration at home. Recent labs show an increase in Lipase suggesting she may be having acute on chronic pancreatitis. Pt was advised to come to [facility] if she had another episode for evaluation with labs and abd CT scan Dose of pancreatic enzymes was increased and pt was advised to hold Hctz (since pancreatitis can be caused by thiazide diuretics and it can worsen dehydration since her PO intake is low). Her wt loss can be related to COVID 19 infection fall of 2018 Weight loss due to acute illness is often multifactorial, and may involve malnutrition, loss of appetite, catabolic state, swallowing dysfunction, and disordered taste and?smell 12/[address] SCAN SHOWED: Calcified plaque and moderate stenosis at the origin of the celiac axis. The SMA and CORBIN are patent. Mild left renal artery stenosis. 03/17/22 Pt had Visceral vessel arteriography at [facility] which was normal. Pt scheduled for MRCP and MRI of abdomen on 11/04/22 and appointment was moved up to 10/13/22. 11/03/22 patient was seen by Dr Andre for a 2nd opinion and started on mirtazapine and has been gaining weight since. 06/17/23 Pt has gained 22 lbs over the past 7 months BNP was elevated so some of the wt gain can be associated with fluid retention - scheduled to see the Machine Silver Stripper on 07/01/23. Saw Neurology 2 weeks ago and prescribed Amitriptyline and scheduled for an MRI of the head next week. 12/28/24 Pt advsied to check cbc and iron studies for FU of anemia Start Linzess 145 mcg daily and continue Senna I will schedule an EGD if labs confirm MARLIN - labs showed stable H & H (Hold off colonoscopy since pt had a negative colon in 09/2020) FU in 4 weeks Orders: Orders IRON PROFILE 12/28/24 D64.9 - Anemia, unspecified C Reactive Protein 12/28/24 D64.9 - Anemia, unspecified Ferritin 12/28/24 D64.9 - Anemia, unspecified Vitamin D 25-OH Total 12/28/24 D64.9 - Anemia, unspecified Complete Blood Count Auto Diff 12/28/24 D64.9 - Anemia, unspecified Medications: New linaclotide (Linzess) 145 mcg PO QAM 30 caps 3RF 30 days K59.09 - Other constipation Refilled lidocaine 5% leave on most painful area for up to 12 hrs 1 patch topical DAILY 30 ea 0RF Coding Level of Care Code Est Pt Level 4 (28971) Diagnoses GERD (gastroesophageal reflux disease) K21.9 Pancreatic insufficiency K86.89 Diarrhea R19.7 Nausea and vomiting R11.2 Elevated lipase R74.8 Chronic constipation K59.09 Dysphagia R13.10 Elevated LFTs R79.89 Anemia D64.9 Time Spent (min) 28
[2024-12-28 14:10] VITALS: BP 115/59; PULSE 73; BMI 23.8
--- OUTSIDE RECORDS SUMMARY | 2024-12-28 14:50 | XMS_ITS | Patient Health Record ---
Author Organization [facility] Address [address] [place] [address] Care Team Providers Care Network Operations Center Technician Name Role Phone Anish Santiago MD, Arnulfo Primary Care Provide Chavez Gutierrez Jr Unavailable Allergies Allergen (clinical drug ingredient) Drug/Non Drug Allergy documented on EMR Reaction Allergy Type Onset Date Status Penicillin Unknown Drug Allergy Active Cortisone Unknown Drug Allergy Active acetaminophen / oxycodone Percocet Unknown Drug Allergy Active morphine Morphine Sulfate Unknown Drug Allergy Active sulfamethoxazole / trimethoprim Bactrim Unknown Drug Allergy Active Reason For Referral No Information Medications Medication SIG (Take, Route, Frequency, Duration) Notes Start Date End Date Status Metoprolol Tartrate 50mg Active Gabapentin 600mg Act elvis Benicar Active Aspir-81 81mg Active hydroCHLOROthiazide 25mg Active Zolpidem Tartrate 10mg Active Gas Relief Active PriLOSEC OTC 20 MG 1 tablet Orally Once a day for 28 Active HumaLOG KwikPen Acti ve Lantus SoloStar Acti ve Dicyclomine HCl 20 MG 1 tablet Orally Fo ur times a day for 30 day(s) 04/05/2013 05/17/2024 Active Problems Problem Type SNOMED Code ICD Code Onset Dates Problem Status W/U Status Risk Notes Problem Esophageal reflux (760846528) Esophageal reflux (530.81) Active confirmed Problem Epigastric pain (18105209) Abdominal pain, epigastric (789.06) Active confirmed Plan Of Treatment No Information Insurance Providers Payer Name Payer Address Payer Phone Subscriber Number Group Number Insured Name Patient Relationship to Insured Coverage Start Date Coverage End Date [facility] [address] [address] [place], [place] [id number] ABHIJEET TILLEY Self - patient is the insured Medical (General) History Medical History History ICD Code colonoscopy 12-09-2005 Diabetes mellitus type 2 Neuropathy Elevated cholesterol Hypertension Surgical History Surgery Date(Month/Year) Bilateral carpal tunnel release Cholecystectomy
--- OUTSIDE RECORDS SUMMARY | 2024-12-28 14:50 | XMS_ITS | Clinical Summary ---
Author Organization [facility] Address [address] [place] [address] Care Team Providers Care Welfare Officer Name Role Phone Unavailable Primary Care Provider [...]
--- OUTSIDE RECORDS SUMMARY | 2024-12-28 14:50 | XMS_ITS | Clinical Summary ---
Author Organization [facility] Address [address] [place] [address] Phone Care Team Providers Care Visor Installer Name Role Phone Shawna Gamble MD Primary Care Provider [phone] Medical History Medical History Date Comments HTN (hypertension) 01/22/2012 DX:HTN (hyper tension) Historical Medical DX 01/22/2012 DX:Hyperli pidemia LDL goal < 70 DM2 (diabetes mellitus, type 2) (CMS/HCC V24, CMS/HCC V28) 01/22/2012 DX:DM2 (diabetes mellitus, type 2) ([facility]) Coronary atherosclerosis of unspecified type of vessel, [place] or graft 01/22/2012 DX:Coronary atherosclerosis of unspecified type of vessel, [place] or graft Carotid stenosis 01/22/2012 DX:Carotid sten osis Esophageal reflux 01/22/2012 DX:Esophageal reflux Carpal tunnel syndrome 01/22/2012 DX:Carpal tunnel syndrome S/P laparoscopic cholecystectomy 01/22/2012 DX:S/P laparoscopic cholecystectomy History of pulmonary function tests 01/22/2012 DX:History of pulmonary function tests Family History Medical History Relation Name Comments Coronary artery disease Father CAD early 60's, late 60's Coronary artery disease Mother CAD early 60's, late 60's Breast cancer Neg Hx Colon cancer Neg Hx Ovarian cancer Neg Hx Prostate cancer Neg Hx Relation Name Status Comments Father Mother Social History Tobacco Use Types Packs/Day Years Used Date Smoking Tobacco: Never Smokeless Tobacco: Never Alcohol Use Standard Drinks/Week Comments Not Asked 0 (1 standard drink = 0.6 oz pur e alcohol) Comments Unknown Sex and Gender Information Value Date Recorded Sex Assigned at Not on file Legal Sex Female 10:47 PM EST Gender Identity Not on file Sexual Orientation Not on file Obstetrics History Plan of Treatment Upcoming Encounters Date Type Department Care Team ([facility] Contact Info) Description 01/25/2025 10:00 AM EDT Consult Orthopedic Surgery - [place] [address] [facility] [address] [place] [id number] Mitesh Pedersen, DPM [address] [facility] [address] [place] [address] Health Maintenance Due Date Last Done Comments Breast Cancer Screening 1955 Diabetes: Annual GFR (Glomer ular Filtration Rate) 1955 Diabetes: Annual Foot Exam 09/06/1963 Diabetes: Annual Retina Eye Exam 09/06/1963 DTaP,Tdap,and Td Vaccines (1 - Tdap) 1972 Pneumococcal Vaccine: 50+ Ye ars (1 of 2 - PCV) 1972 Zoster Vaccines (1 of 2) 09/06/2003 RSV Immunization Adult Patie nts (1 - Risk 60-74 years 1-dose series) 2013 COVID-19 Vaccine (1 - 2023-2 5 season) 2024 Depression Screening 05/17/2024 Cholesterol Screening (Lipid Panel) 10/24/2024 Colorectal Cancer Screening: Colonoscopy 10/24/2024 Diabetes: Annual Urine Albumin-Creatinine Ratio (uACR) 10/24/2024 Diabetes: Blood Sugar Contro l Test (HGBA1C) 10/24/2024 Falls Risk Assessment 10/24/2024 Hepatitis C Screening 10/24/2024 Hypertension/CHF/CAD Annual BMP Blood Test 10/24/2024 Medicare Annual Wellness Visit 10/24/2024 Osteoporosis Screening (Bone Density Screening) 10/24/2024 Social Influencers of Health Screening 10/24/2024 Influenza Vaccine (#1) 2025 HIB Vaccines Aged Out No longer eligi ble based on patient's age to complete this topic HPV Vaccines Aged Out No longer eligi ble based on patient's age to complete this topic Hepatitis A Vaccines Aged Out No long er eligible based on patient's age to complete this topic Hepatitis B Vaccines Aged Out No long er eligible based on patient's age to complete this topic IPV Vaccines Aged Out No longer eligi ble based on patient's age to complete this topic MMR Vaccines Aged Out No longer eligi ble based on patient's age to complete this topic Meningococcal ACWY Vaccine Aged Out N o longer eligible based on patient's age to complete this topic Meningococcal B Vaccine Aged Out No l onger eligible based on patient's age to complete this topic RSV Immunization Patients Un russel 20 months Aged Out No longer eligible b ased on patient's age to complete this topic Varicella Vaccines Aged Out No longer eligible based on patient's age to complete this topic Insurance [place] - [place] [facility] OPT[facility] Member Subscriber Plan / Payer (Ef fective 2024-Present) Name:JeetSaraAbhijeet Relation to Subscriber:Self Name:Jeet Abhijeet Payer ID:[id number] Group ID:Not on file Type:Not on file Address: [facility] [address] [place] [id number] Care Teams Visor Installer Relationship Specialty Start Date End Date Shawna Gamble MD [address] [place] [phone] PCP - General Tire Maintenance Technician 10/24/24
--- OUTSIDE RECORDS SUMMARY | 2024-12-28 14:50 | XMS_ITS | Clinical Summary ---
Author Organization [facility] Address [address] [place] [address] Phone Care Team Providers Care Proposal Lead Writer Name Role Phone Reena Marinelli Primary Care Provider [phone] Social History Tobacco Use Types Packs/Day Years Used Date Smoking Tobacco: Never Assessed Education Answer Date Recorded Are you interested in more education? Not on nitish e 09/11/2022 Are you concerned about learning? Not on file 09/11/2022 No 09/11/2022 No 09/11/2022 Digital Access Answer Date Recorded No 10/13/2022 No 10/13/2022 Reliable internet access at home? Not on file 10/13/2022 Device with a working camera? Not on file Comments Unknown Sex and Gender Information Value Date Recorded Sex Assigned at Not on file Legal Sex Female 2:59 PM EDT Gender Identity Not on file Sexual Orientation Not on file Plan of Treatment Not on file Medical Devices Not on file Insurance [facility] [place] [id number] [facility] MEDICARE REPLACEMENT [facility] MEDICARE REPLACEMENT [facility] MEDICARE REPLACEMENT Care Teams Proposal Lead Writer Relationship Specialty Start Date End Date Reena Marinelli PA [address] [place] [address] [email or web address] PCP - General Shop Estimator 08/18/19 Additional Source Comments The information contained in this document represents components of the legal health record. It is not the complete legal health record.[facility]
--- OUTSIDE RECORDS SUMMARY | 2024-12-28 14:50 | XMS_ITS | Clinical Summary ---
Author Organization [facility] Address [address] [address] Phone Care Team Providers Care Barber Apprentice Name Role Phone Shawna Gamble MD Primary [...] the rectum 3 Active Cholecalciferol 250 MCG (37167 UT) capsule TAKE 1 CAPSULE BY MOUTH [...] bypass grafting 12/1503/11/2023 Overview (03/11/2023): 07/2022 at [facility] Chest pain on breathing 12/04/2022 03/11/20 [...] A1C 03/09/2024 024, 07/14/2023, 11/30/2022 Influenza Vaccine (#1) 2025 3, 03/04/2022, 04/02/2021, Additional history exists Hepatitis B Vaccine Aged Out 04/27/2018, 8 No longer eligible based on patient's age to complete this topic Pneumococcal Vaccine: 50+ Years Completed 04/02/2021, 05/11/2019, 03/02/2002 Insurance [facility] ([id number]) [facility] ([id number]) Care Teams Barber Apprentice Relationship Specialty Start Date End Date Shawna Gamble MD [address] [place] [phone] PCP - General Lead Relay Tester 02/16/24
== END 2024-12-28 14:52 | disposition home or self-care (01) ==
LOC: HO.HGI 14:02
PROVIDERS: PCP General Practice; Visit Provider Internal Medicine Gastroenterology
DX: K21.9 Gastro-esophageal reflux disease without esophagitis (principal); K86.89 Other specified diseases of pancreas; R19.7 Diarrhea, unspecified; R11.2 Nausea with vomiting, unspecified; R74.8 Abnormal levels of other serum enzymes; K59.09 Other constipation; R13.10 Dysphagia, unspecified; R79.89 Other specified abnormal findings of blood chemistry; D64.9 Anemia, unspecified
CPT/HCPCS: 99499

== ENCOUNTER 2025-01-01 17:26 | Emergency (ER) | payer OTHER, SELFPAY ==
--- NOTE | 2025-01-01 | ECG_ITS ---
Test Reason : FALL Blood Pressure : */* mmHG Vent. Rate : 69 BPM Atrial Rate : 69 BPM P-R Int : 166 ms QRS Dur : 86 ms QT Int : 376 ms P-R-T Axes : 28 24 33 degrees QTcB Int : 402 ms Normal sinus rhythm with sinus arrhythmia Normal ECG When compared with ECG of 28-Oct-2024 16:52, No significant change was found Referred By: Generic ED Physician Electronically Signed By: DONNY ROSARIO MD
--- NOTE | ~2025-01-01 | CT_ITS ---
CLINICAL HISTORY: fall, headache CT head without contrast Comparison: CT/SR - CT HEAD/BRAIN WO IV CON - 10/28/24 18:04 EDT Findings: No intra-axial mass, midline shift, hydrocephalus, or acute hemorrhage. Nonspecific white matter hypodensities are present with mild volume loss. The visualized paranasal sinuses and mastoid air cells are normal. The orbits are within normal limits. No skull fracture. IMPRESSION: 1. No acute intracranial findings. This document has been electronically signed by: Tramaine Jay MD, PHD on 01/02/2025 00:05:28
--- NOTE | ~2025-01-01 | CT_ITS ---
CLINICAL HISTORY: fall, mild pain, mostly posterior Headache CT cervical spine without contrast Comparison: CT/SR - CT CERVICAL SPINE WO IV CON - 10/28/24 18:04 EDT Findings: Vertebral alignment is within normal limits. Degenerative changes are moderate. Calcified disc osteophyte complexes are present at C4-C5 and C5-C6. No acute fractures or dislocations. No acute findings on limited view of the intracranial contents. Soft tissues of the neck are normal. No consolidation or effusion at the lung apices. Severe atherosclerotic calcification is noted in the left carotid bulb. IMPRESSION: No acute findings. This document has been electronically signed by: Tramaine Jay MD, PHD on 01/02/2025 00:05:24
[2025-01-01 17:33] VITALS: BP 129/70; BP 140/68; PULSE 70; PULSE 76; RESP 16; TEMP 36.4; O2SAT 98; BMI 25.1
--- NOTE | 2025-01-01 18:08 | PC.NURSE ---
EKG & labs being obtained at this time. Patient is alert/oriented, cervical collar in place. Reports dizziness & fall at home while DIRECTOR OF PHYSICIAN PRACTICES was cooking her dinner. Patient has a history of diabetes, CABG ~3 years ago, takes Xarelto. Med compliant. Pleasant/calm/cooperative. Reporting right sided head pain after fall from standing. Struck floor. 20g IV access to left forearm. Vital signs stable. Care ongoing by this RN.
[2025-01-01 18:19] LABS: MANUAL DIFF FLAG NO
[2025-01-01 18:22] LABS: Hematocrit 36.7 % (37.0-47.0); Hemoglobin 12.0 g/dl (12.0-16.0); Imm Gran Abs Auto 0.04 X10*3/uL (0.00-0.03); Imm Gran Pct Auto 0.4 % (0.0-0.4); Lymphocytes Absolute Auto 2.3 X10*3/uL (1.2-4.9); Mean Corpuscular HGB Conc 32.7 g/dl (31.0-35.0); Mean Corpuscular Hemoglobin 29.2 pg (27.0-33.0); Mean Corpuscular Volume 89.3 fL (80.0-98.0); NRBC Abs Auto 0.000 X10*3/uL (0.0-0.012); NRBC Pct Auto 0.0 /100WBC (0.0-0.2); Platelet Count 257 X10*3/uL (160-400); Red Blood Count 4.11 X10*6/uL (4.20-5.50); White Blood Count 9.4 X10*3/uL (4.8-10.8)
[2025-01-01 18:29] LABS: INTERNATIONAL NORM RATIO 1.0 (0.9-1.1); Prothrombin Time 11.9 SEC (10.9-12.4)
[2025-01-01 18:32] LABS: Partial Thromboplastin Time 31.9 SEC (26.7-34.1)
[2025-01-01 18:35] LABS: Alanine Aminotransferase 35 U/L (0-31); Albumin Level 4.4 g/dL (3.5-5.0); Alkaline Phosphatase 105 U/L (39-117); Anion Gap 18 (12-20); Aspartate Amino Transferase 45 U/L (5-31); Blood Urea Nitrogen 20 mg/dL (9-16); Calcium 9.5 mg/dL (8.4-10.2); Carbon Dioxide 23 mmol/L (22-29); Chloride 99 mmol/L (96-108); Creatinine Clr Calc Pharmacy 36.3; Estimated Glomerular Filt Rate 43; Magnesium 1.5 mg/dL (1.6-2.6); Potassium 3.7 mmol/L (3.3-5.1); Sodium 136 mmol/L (135-145); Total Protein 7.0 g/dL (6.5-8.0)
[2025-01-01 18:43] LABS: Troponin-I High Sensitivity 4.0 ng/L (<3.5-17.0)
--- NOTE | 2025-01-01 19:28 | ED.GENADULT ---
HPI - General Adult General Chief complaint: Fall Stated complaint: FALL, +HS, +BT Time Seen by Provider: 01/01/25 17:55 Source: patient and EMS Mode of arrival: EMS Limitations: no limitations History of Present Illness ED Provider: Dr. Saira Rouse HPI narrative: Patient comes to the emergency room complaining of the fall. Patient states that for the last few weeks she has been gradually feeling more weak and has fallen multiple times. Patient states that today she got up, fell on the ground, states that her knees gave up. Patient states that today she has mild right-sided headache discomfort, no neck pain. Patient is on Xarelto. Related Data Home Medications ?Medication ?Instructions ?Recorded ?Confirmed atorvastatin 80 mg tablet 80 mg PO DAILY 02/12/20 12/28/24 aspirin 81 mg tablet,delayed 81 mg PO DAILY 07/10/20 12/28/24 release (Adult Low Dose Aspirin) trazodone 100 mg tablet 100 mg PO BEDTIME 07/19/20 12/28/24 metoprolol tartrate 25 mg tablet 1 tab PO BID 03/16/21 12/28/24 sertraline 50 mg tablet 50 mg PO DAILY 12/09/22 12/28/24 duloxetine 20 mg capsule,delayed 20 mg PO DAILY 10/22/23 12/28/24 release furosemide 20 mg tablet 20 mg PO DAILY 10/22/23 12/28/24 lisinopril 40 mg tablet 40 mg PO DAILY 10/22/23 12/28/24 loratadine 10 mg tablet 10 mg PO DAILY 10/22/23 12/28/24 magnesium oxide 400 mg (241.3 mg 400 mg PO QAM 10/22/23 12/28/24 magnesium) tablet rivaroxaban 2.5 mg tablet (Xarelto) mg PO 10/22/23 12/28/24 empagliflozin 10 mg tablet 10 mg PO DAILY 12/28/24 12/28/24 (Jardiance) ferrous gluconate 324 mg (38 mg 324 mg PO QAM 12/28/24 12/28/24 iron) tablet metformin 500 mg tablet,extended 1,000 mg PO BID 12/28/24 12/28/24 release 24 hr pilocarpine HCl 5 mg tablet 5 mg PO TID 12/28/24 12/28/24 Previous Rx's ?Medication ?Instructions ?Recorded hydrocodone 5 mg-acetaminophen 325 1 tab PO Q8H PRN pain #15 tabs 11/06/23 mg tablet docusate sodium 100 mg capsule 100 mg PO DAILY #90 caps 08/16/24 sennosides 8.6 mg tablet (senna) 17.2 mg (2 x 8.6 mg) PO BEDTIME 09/19/24 PRN for constipation #180 tabs acetaminophen 650 mg 650 mg PO Q8H PRN pain #30 tabs 10/28/24 tablet,extended release (Tylenol Arthritis Pain) omeprazole 40 mg capsule,delayed 40 mg PO DAILY #90 caps 12/04/24 release amitriptyline 50 mg tablet 100 mg (2 x 50 mg) PO BEDTIME 90 12/27/24 days #180 tabs lidocaine 5 % topical patch 1 patch topical DAILY #30 ea 12/28/24 linaclotide 145 mcg capsule 145 mcg PO QAM 30 days #30 caps 12/28/24 (Linzess) Allergies Allergy/AdvReac Type Severity Reaction Status Date / Time cortisone (CORTISONE) Allergy Intermediate RASH Verified 01/01/25 17:39 hydrocortisone Allergy Intermediate Rash Verified 01/01/25 17:39 morphine (Morphine) Allergy Intermediate RASH, Verified 01/01/25 17:39 ITCHING oxycodone (From Percocet) Allergy Intermediate Nausea and Verified 01/01/25 17:39 Vomiting Penicillins Allergy Intermediate ITCHING Verified 01/01/25 17:39 sulfamethoxazole (From Allergy Intermediate Rash Verified 01/01/25 17:39 Bactrim) trimethoprim (From Bactrim) Allergy Intermediate Rash Verified 01/01/25 17:39 acetaminophen (From Percocet) Allergy Mild Unknown Verified 01/01/25 17:39 azithromycin Allergy Mild Unknown Verified 01/01/25 17:39 doxycycline Allergy Mild Unknown Verified 01/01/25 17:39 tramadol Allergy Mild Unknown Verified 01/01/25 17:39 tylenol codeine Allergy Mild Unknown Uncoded 01/01/25 17:39 Review of Systems Review of Systems: Constitutional : No Weight loss, No Fever, No Chills, No Night Sweats, no fatigue, complaining of multiple falls ENT/Mouth : No Hearing loss, No Ear Pain, No Nasal Congestion, No Sinus Pain, No Hoarseness, No sore throat, No Rhinorrhea, No Swallowing Difficulty Eyes: No Eye Pain, No Swelling, No Redness, No Foreign Body, No Discharge, No Vision Changes Cardiovascular : No Chest Pain, No SOB, No Dyspnea on Exertion, No Orthopnea, No Edema, No Palpitations Respiratory : No Cough, No Sputum, No Wheezing, No Smoke Exposure, No Dyspnea Gastrointestinal : No Nausea, No Vomiting, No Diarrhea, No Constipation, No abdominal Pain, No Hematochezia, No Melena Genitourinary : no irregular bleeding, No Dysuria, No Urinary Frequency, No Hematuria, No Urinary Incontinence, No Urgency, No Flank Pain, No Urinary Flow Changes, No Hesitancy Musculoskeletal : Complaining of knee weakness bilateral, no significant pain, No Myalgias, No Joint Swelling Skin : No Skin Lesions, No rash Neuro : No Weakness, No Numbness, No Paresthesias, No Loss of Consciousness, No Dizziness, No Headache Psych : No Anxiety/Panic, No Depression, No SI/HI/AH/VH, No Social Issues, Heme/Lymph: No Bruising, No Bleeding,No Lymphadenopathy Endocrine : No Polyuria, No Polydipsia, No Temperature Intolerance [facility] Past Medical History Medical History Anemia Rheumatic arteritis Neuropathy History of heart attack Diabetes Pancreatic insufficiency GERD (gastroesophageal reflux disease) Surgical History History of open heart surgery Hx of cardiac catheterization Hx of heart artery stent Hx of colonoscopy History of esophagogastroduodenoscopy (EGD) History of bilateral carpal tunnel release History of cholecystectomy H/O colonoscopy with polypectomy Family History Family History Father No problems noted. Mother No problems noted. Brother No problems noted. Sister Breast cancer Lymphoma Sister No problems noted. Sister No problems noted. Sister No problems noted. Social History Social History Household Members: None Are you a primary animal care provider to a significant other at home: No Do you presently have visiting nurse or other home services: No Alcohol intake: never Patient Tobacco Use Status: Never used Tobacco Advance Directives: No Advance Directives Information Provided: No Current occupational status: unemployed and disabled Physical Exam ED Exam Exam: Appearance: Alert. Oriented X3. No acute distress. Eyes: Pupils equal, round and reactive to light. ENT: Pharynx normal. Neck: Patient is on a C-collar, no pain to palpation on the neck, no cervical spine palpable step-offs CVS: Normal heart rate and rhythm. Pulses normal. Normal S1 and S2 Respiratory: No respiratory distress. Breath sounds normal. No Wheezing. No rales Abdomen: Soft and nontender. No rigidity. No distention. Skin: Skin warm and dry. Normal skin color. Normal skin turgor. No ecchymosis Extremities: No lower extremity edema. No Lacerations. No Rash complaining of occasional bilateral knee weakness, buckling and falling Neuro: Oriented X 3. No motor deficit. No sensory deficit. Moving all extremities. No slurred speech. CN 2 through 12 grossly intact Psych: calm, cooperative, normal affect Vital Signs: Vital Signs - 24 hr 01/01/25 17:33 01/01/25 21:59 01/01/25 22:01 Temperature 97.6 F 97.7 F Pulse Rate 70 77 77 Respiratory Rate 16 16 Blood Pressure 129/70 161/75 H 183/84 H Pulse Oximetry 98 99 Oxygen Delivery Method Room Air Room Air 01/01/25 22:02 01/01/25 22:02 01/01/25 23:15 Temperature 97.7 F Pulse Rate 76 77 75 Respiratory Rate 15 Blood Pressure 166/80 H 161/75 H 130/82 Pulse Oximetry 99 Oxygen Delivery Method Room Air BMI result Body Mass Index 25.1 Course Course Course Narrative: Patient reports occasional falls at home secondary to knee buckling Medications Administered Discontinued Medications Generic Name Dose Route Start Last Admin Trade Name Harsh PRN Reason Stop Dose Admin Magnesium Oxide 400 mg 01/01/25 20:09 01/01/25 21:16 Magnesium Oxide 400 Mg Tablet PO 01/01/25 20:10 400 mg ONCE ONE Administration Medical Decision Making Medical Decision Making MDM Narrative: Patient states that if needed, she is willing to get home PT but she does not want to go to a short-term rehab. My interpretation of labs: No significant acute abnormality in patient's hematology or chemistry, INR 1.0, magnesium 1.5, repleted p.o., troponin negative, LFTs negative CT scan of the head and neck did not show any acute abnormality. Patient's son at bedside, I offered to the patient PT case management, they declined, patient would like to go home, patient will like to take her mother home. They state that if the patient continues having more falls or weakness, they will follow-up with their primary care physician and likely as there PCP to order home PT for them. Patient uses a walker, patient was ambulated around the emergency room and did well. Patient and her son feel comfortable being discharged home. Differential Diagnosis Differential Diagnoses: The differential diagnosis associated with the presentation includes (UTI, mechanical falls, the condition) Admission/Observation Consideration of admission/observation: Escalation of care including admission/observation considered (Physician observation was suggested, for PT and case management consult, family and patient declined) Lab Data MDM Lab Attestation statement: I reviewed the patient's lab results. 01/01/25 18:15 01/01/25 18:15 Labs: Lab Results 01/01/25 01/01/25 Range/Units 18:15 22:04 WBC 9.4 (4.8-10.8) X10*3/uL RBC 4.11 L (4.20-5.50) X10*6/uL Hgb 12.0 (12.0-16.0) g/dl Hct 36.7 L (37.0-47.0) % MCV 89.3 (80.0-98.0) fL MCH 29.2 (27.0-33.0) pg MCHC 32.7 (31.0-35.0) g/dl RDW 14.6 (11.0-16.0) % Plt Count 257 (160-400) X10*3/uL MPV 10.9 (9.4-12.3) fL Immature Gran % (Auto) 0.4 (0.0-0.4) % Neut % (Auto) 62.9 (45-73) % Lymph % (Auto) 24.5 (20-40) % [place] % (Auto) 8.3 (2-11) % Eos % (Auto) 2.9 (0-4) % Baso % (Auto) 1.0 (0-2) % Lymph # (Auto) 2.3 (1.2-4.9) X10*3/uL [place] # (Auto) 0.8 (0.1-1.2) X10*3/uL Eos # (Auto) 0.3 (0.0-0.4) X10*3/uL Baso # (Auto) 0.1 (0.0-0.2) X10*3/uL Abs Immat Gran (auto) 0.04 H (0.00-0.03) X10*3/uL Absolute Neuts (auto) 5.9 (2.0-8.3) x10*3/uL Absolute Nucleated RBC 0.000 (0.0-0.012) X10*3/uL Nucleated RBC % (auto) 0.0 (0.0-0.2) /100WBC PT 11.9 (10.9-12.4) SEC INR 1.0 (0.9-1.1) APTT 31.9 (26.7-34.1) SEC Sodium 136 (135-145) mmol/L Potassium 3.7 (3.3-5.1) mmol/L Chloride 99 (96-108) mmol/L Carbon Dioxide 23 (22-29) mmol/L Anion Gap 18 (12-20) BUN 20 H (9-16) mg/dL Creatinine 1.23 (0.5-1.4) mg/dL Estim Creat Clear Calc 36.3 Estimated GFR 43 Random Glucose 178 H (60-115) mg/dL Calcium 9.5 (8.4-10.2) mg/dL Magnesium 1.5 L (1.6-2.6) mg/dL Total Bilirubin 0.3 (0.0-1.0) mg/dL AST 45 H (5-31) U/L ALT 35 H (0-31) U/L Alkaline Phosphatase 105 (39-117) U/L Troponin I High Sens 4.0 (<3.5-17.0) ng/L Total Protein 7.0 (6.5-8.0) g/dL Albumin 4.4 (3.5-5.0) g/dL Urine Color Yellow Urine Appearance Clear Urine pH 6.5 (5.0-9.0) Ur Specific [place] 1.010 (1.005-1.025) Urine Protein Negative (Neg-Trace) mg/dL Urine Glucose (UA) >=1000 H (Negative) mg/dL Urine Ketones Negative (Negative) mg/dL Urine Blood Negative (Negative) Urine Nitrite Negative (Negative) Ur Leukocyte Esterase Negative (Negative) Urine RBC 0-2 (0-2) /HPF Urine WBC 0-5 (0-5) /HPF Ur Squamous Epith Cells 0-2 (0-2) /HPF Urine Bacteria None Seen (None Seen) Hyaline Casts 0-2 (0-2) /LPF Urine Opiates Screen Not Detected (Not Detect) Ur Buprenorphine Scrn Not Detected (Not Detect) ng/mL Ur Oxycodone Screen Not Detected (Not Detect) ng/mL Urine Methadone Screen Not Detected (Not Detect) ng/mL Urine Fentanyl Screen Not Detected (Not Detect) Ur Barbiturates Screen Not Detected (Not Detect) Ur Phencyclidine Scrn Not Detected (Not Detect) Ur Amphetamines Screen Not Detected (Not Detect) U Benzodiazepines Scrn Not Detected (Not Detect) Urine Cocaine Screen Not Detected (Not Detect) U Marijuana (THC) Screen Not Detected (Not Detect) Independent Interpretation I performed an independent interpretation of an: CT Scan Radiology Impression Discussion of test interpretation with radiology: I have reviewed the radiologist's reading. Radiologist Impression: No intra-axial mass, midline shift, hydrocephalus, or acute hemorrhage. Nonspecific white matter hypodensities are present with mild volume loss. The visualized paranasal sinuses and mastoid air cells are normal. The orbits are within normal limits. No skull fracture. IMPRESSION: 1. No acute intracranial findings. Vertebral alignment is within normal limits. Degenerative changes are moderate. Calcified disc osteophyte complexes are present at C4-C5 and C5-C6. No acute fractures or dislocations. No acute findings on limited view of the intracranial contents. Soft tissues of the neck are normal. No consolidation or effusion at the lung apices. Severe atherosclerotic calcification is noted in the left carotid bulb. IMPRESSION: No acute findings. Critical Care Time Critical Care Time Critical Care Time: Yes Total Critical Care Time: 35 Attestation: I have personally provided critical care time. Time includes review of lab data, radiology results, discussion with consultants, and monitoring for potential decompensation. Intervention performed as documented. Discharge Plan Discharge Clinical Impression: Fall, Contusion Patient Disposition: Home, Self-Care Instructions: Fall Prevention for Older Adults (ED) Additional Instructions: Please follow-up with your primary care physician tomorrow. If you have any worsening or new symptoms, please return to the emergency room or call 911 Prescriptions: No Action hydrocodone-acetaminophen 5-325 mg tablet 1 tab PO Q8H PRN (Reason: pain) Qty: 15 0RF Rx Instructions: Partial Fill upon patient request. docusate sodium 100 mg capsule 100 mg PO DAILY Qty: 90 1RF sennosides [senna] 8.6 mg tablet 17.2 mg PO BEDTIME PRN (Reason: for constipation) Qty: 180 1RF omeprazole 40 mg capsule,delayed release(DR/EC) 40 mg PO DAILY Qty: 90 1RF amitriptyline 50 mg tablet 100 mg PO BEDTIME 90 Days Qty: 180 0RF metoprolol tartrate 25 mg tablet 1 tab PO BID acetaminophen [Tylenol Arthritis Pain] 650 mg tablet extended release 650 mg PO Q8H PRN (Reason: pain ) Qty: 30 0RF magnesium oxide 400 mg (241.3 mg magnesium) tablet 400 mg PO QAM furosemide 20 mg tablet 20 mg PO DAILY lisinopril 40 mg tablet 40 mg PO DAILY loratadine 10 mg tablet 10 mg PO DAILY duloxetine 20 mg capsule,delayed release(DR/EC) 20 mg PO DAILY Xarelto 2.5 mg tablet PO atorvastatin 80 mg tablet 80 mg PO DAILY aspirin [Adult Low Dose Aspirin] 81 mg tablet,delayed release (DR/EC) 81 mg PO DAILY trazodone 100 mg tablet 100 mg PO BEDTIME sertraline 50 mg tablet 50 mg PO DAILY pilocarpine HCl 5 mg tablet 5 mg PO TID Jardiance 10 mg tablet 10 mg PO DAILY metformin 500 mg tablet extended release 24 hr 1,000 mg PO BID ferrous gluconate 324 mg (38 mg iron) tablet 324 mg PO QAM lidocaine 5 % adhesive patch,medicated 1 patch topical DAILY Qty: 30 0RF Rx Instructions: leave on most painful area for up to 12 hrs Linzess 145 mcg capsule 145 mcg PO QAM 30 Days Qty: 30 3RF Print Language: French
[2025-01-01 21:59] VITALS: BP 161/75; PULSE 77; RESP 16; TEMP 36.5; O2SAT 99
[2025-01-01 22:01] VITALS: BP 183/84; PULSE 77
[2025-01-01 22:02] VITALS: BP 161/75; BP 166/80; PULSE 76; PULSE 77
[2025-01-01 22:11] LABS: Appearance Urine Clear; Glucose Urine UA >=1000 mg/dL (Negative); PH 6.5 (5.0-9.0); Specific Gravity - Urine 1.010 (1.005-1.025); UMIC TRIGGER UACC YES
[2025-01-01 22:20] LABS: Cannabinoid Screen Urine Not Detected (Not Detect)
[2025-01-01 23:15] VITALS: BP 130/82; PULSE 75; RESP 15; TEMP 36.5; O2SAT 99
[2025-01-02 01:14] VITALS: BP 186/82; PULSE 76
[2025-01-02 02:18] VITALS: BP 165/80; PULSE 72; RESP 20; TEMP 36.7; O2SAT 100
--- NOTE | 2025-01-02 02:19 | PC.NURSE ---
Delay in discharge due to HTN. Provider notified, new orders placed and pt medicated as per JUL. 1hour after admin bp at 165/80
== END 2025-01-02 02:20 | disposition home or self-care (01) ==
PROVIDERS: Emergency Provider Emergency Medicine; PCP General Practice
DX: S00.93XA Contusion of unspecified part of head, initial encounter (principal); W19.XXXA Unspecified fall, initial encounter; Y93.89 Activity, other specified; Y92.9 Unspecified place or not applicable; Y99.9 Unspecified external cause status; R51.9 Headache, unspecified; M54.2 Cervicalgia; Z79.899 Other long term (current) drug therapy; E11.9 Type 2 diabetes mellitus without complications; K21.9 Gastro-esophageal reflux disease without esophagitis
CPT/HCPCS: 36415; 70450; 72125; 80053; 80307; 81001; 83735; 84484; 85025; 85610; 85730; 93005; 99284

== ENCOUNTER → 2025-01-01 18:10 | Outpatient (BNV) | payer OTHER, SELFPAY | PROVIDERS: Emergency Provider Emergency Medicine; PCP General Practice; Visit Provider Internal Medicine Cardiovascular Disease | DX: Z13.6 Encounter for screening for cardiovascular disorders (principal); W19.XXXA Unspecified fall, initial encounter | CPT/HCPCS: 93010 ==

== ENCOUNTER → 2025-01-01 22:07 | Outpatient (BNV) | payer OTHER, SELFPAY | PROVIDERS: Emergency Provider Emergency Medicine; PCP General Practice; Visit Provider General Practice | DX: M50.321 Other cervical disc degeneration at C4-C5 level (principal); R51.9 Headache, unspecified | CPT/HCPCS: 70450; 72125 ==

== ENCOUNTER 2025-01-03 12:04 | Outpatient (AMB) | payer OTHER, SELFPAY ==
--- NOTE | 2025-01-03 12:12 | A.OFFVIS_ITS ---
Intake Visit Reasons: 3 Months Senior Qa Engineer Required: Yes Senior Qa Engineer Services: Senior Qa Engineer Offered & Declined (Son will translate) Accompanied by: Son Allergies cortisone (CORTISONE) Allergy (Intermediate, Verified 01/03/25 12:27) RASH hydrocortisone Allergy (Intermediate, Verified 01/03/25 12:27) Rash morphine (Morphine) Allergy (Intermediate, Verified 01/03/25 12:27) RASH, ITCHING oxycodone (From Percocet) Allergy (Intermediate, Verified 01/03/25 12:27) Nausea and Vomiting Penicillins Allergy (Intermediate, Verified 01/03/25 12:27) ITCHING sulfamethoxazole (From Bactrim) Allergy (Intermediate, Verified 01/03/25 12:27) Rash trimethoprim (From Bactrim) Allergy (Intermediate, Verified 01/03/25 12:27) Rash acetaminophen (From Percocet) Allergy (Mild, Verified 01/03/25 12:27) Unknown azithromycin Allergy (Mild, Verified 01/03/25 12:27) Unknown doxycycline Allergy (Mild, Verified 01/03/25 12:27) Unknown tramadol Allergy (Mild, Verified 01/03/25 12:27) Unknown tylenol codeine Allergy (Mild, Uncoded 01/03/25 12:27) Unknown Medication List - Last Reconciled 01/03/25 by Olinda Jett, THAD acetaminophen ER (Tylenol Arthritis Pain) 650 mg PO Q8H PRN amitriptyline 100 mg (2 x 50 mg) PO BEDTIME 90 days aspirin (Adult Low Dose Aspirin) 81 mg PO DAILY atorvastatin 80 mg PO DAILY docusate sodium 100 mg PO DAILY duloxetine 20 mg PO DAILY empagliflozin (Jardiance) 10 mg PO DAILY ferrous gluconate 324 mg PO QAM furosemide 20 mg PO DAILY gabapentin 600 mg PO QID hydrocodone-acetaminophen 5-325 mg 1 tab PO Q8H PRN hydroxyzine HCl 25 mg PO BID PRN lidocaine 5% 1 patch topical DAILY linaclotide (Linzess) 145 mcg PO QAM 30 days lisinopril 40 mg PO DAILY loratadine 10 mg PO DAILY magnesium oxide 400 mg PO QAM metformin ER 1,000 mg PO BID metoprolol tartrate 1 tab PO BID omeprazole 40 mg PO DAILY pilocarpine HCl 5 mg PO TID rivaroxaban (Xarelto) mg PO sennosides (senna) 17.2 mg (2 x 8.6 mg) PO BEDTIME PRN sertraline 50 mg PO DAILY trazodone 100 mg PO BEDTIME HPI Comments Details: She was having more weakness in her legs and pain in her feet. She was taking gabapentin 600mg four times a day, but ran out of medication about 1 month ago and was having more pain. She was unable to describe the pain in her feet and it was always there. Previously, she was having sharp pain, mostly in her toes at night time. She had some numbness and tingling in left toes. She had few falls, last was earlier this week when she stood to get walker and legs gave out, seen at [facility]. She says blood sugar has been okay, but random glucose was 400 on labs in 09/2024. Headaches were okay. Memory was about the same, forgetful at times. Previously was getting headaches 3x/day lasting about 30 minutes Using Migraine relief OTC. This has been going on for a year or more. Had 4 vs CABG in July 2022. She is obviously depressed. Bifrontal throbbing pain. Occasional nausea without vomiting. Weight loss. Sleep problems. No stroke like sx or TIA. LBP and pain in LLE. Eye exam was normal. PCP thought it was migraine, treated with Sumatriptan 25mg which helps a bit. Right neck pain without radiation into arm. She has carpal tunnel syndrome. [facility] Medical History Anemia Rheumatic arteritis Neuropathy History of heart attack Diabetes Pancreatic insufficiency GERD (gastroesophageal reflux disease) Surgical History History of open heart surgery Hx of cardiac catheterization Hx of heart artery stent Hx of colonoscopy History of esophagogastroduodenoscopy (EGD) History of bilateral carpal tunnel release History of cholecystectomy H/O colonoscopy with polypectomy Family History Father No problems noted. Mother No problems noted. Brother No problems noted. Sister Breast cancer Lymphoma Sister No problems noted. Sister No problems noted. Sister No problems noted. Social History Household Members: None Are you a primary transitional care manager to a significant other at home: No Do you presently have visiting nurse or other home services: No Alcohol intake: never Patient Tobacco Use Status: Never used Tobacco Current occupational status: unemployed and disabled Review of Systems Const Denies chills, Denies daytime sleepiness, Reports difficulty sleeping, Denies fatigue, Denies fever(s), Denies frequent falls, Reports headache(s), Denies increased appetite, Denies poor appetite, Denies snoring, Denies weakness, Denies weight gain and Denies weight loss Eyes Denies loss of vision ENT Denies vertigo, Denies dizziness, Reports headache(s) and Reports neck pain Card Denies chest pain at rest, Denies chest pain with activity, Denies syncope, Denies leg edema, Denies palpitations, Denies dyspnea and Denies dyspnea on exertion Resp Denies cough, Denies dyspnea, Denies dyspnea on exertion and Denies snoring GI Denies abdominal pain, Denies constipation, Denies heartburn, Denies diarrhea and Denies nausea Denies urinary frequency, Denies urinary incontinence and Denies urinary urgency Musc Denies abnormal gait, Reports back pain, Denies myalgias, Denies arthralgias, Reports neck pain, Denies numbness and Denies tingling Neuro Denies abnormal gait, Denies vertigo, Denies dizziness, Denies syncope, Denies frequent falls, Reports headache(s), Denies lack of coordination, Denies loss of vision, Reports memory loss, Denies numbness, Denies Other visual disturbances, Denies restless legs, Denies seizure-like activity, Denies tingling, Denies paresthesias, Denies tremor(s) and Denies weakness Psych Denies anxiety, Denies depression, Denies auditory hallucinations, Reports memory loss and Denies visual hallucinations Endo Denies fatigue and Denies palpitations Physical Exam Const Other: General Appearance:? normal, in no acute distress. Heart:? S1, S2 normal, no murmurs. Lungs:? clear anteriorly and posteriorly. Musculoskeletal:? normal. Extremities:? no edema. Psych:? alert, as below. Neuro Other: Abnormal Neurological Findings:?Absent reflexes in the lower extremities and mild blunting of pinprick modalities in the toes. SLR 75 degrees bilat. Walking with walker. MMSE 23/30 Mental Status: alert, as below. Cranial Nerves: Pupils are equal, round, and reactive to light. External ocular muscles are intact. Visual galicia are full, no ptosis. Face is symmetrical, no facial weakness or droop. Facial sensations are normal. Tongue protrudes in midline. Palate elevates symmetrically. Shoulder shrugging is normal Motor Examination: As above, otherwise normal muscle tone, bulk and strength. No atrophy or fasciculations. No drift of the extended upper extremities. DTR 2+ with absent ankle reflexes. Plantars are flexor. Straight Leg Raising: As above. Sensory Exam: As above, otherwise normal light touch, temperature, pinprick, vibration, and joint-position sensations. Rhomberg sign is absent. Coordination: No ataxia. No titubation. Gait Exam: With walker. Cerebellar Signs: [id number] and mytg-[id number] is normal. No dysdiadochokinesia. Extrapyramidal System: No tremor, rigidity with normal facial expressions. No bradykinesia. No bradyphrenia. Normal arm swing and posture. No propulsion or retropulsion. Speech: Normal. No dysphasia or dysarthria. MMSE Level of Consciousness: Alert. Orientation: Knows correct year, day and season. Does not know month or date. Knows correct city, county and state. Knows correct location and floor. Registration: Able to register 3 objects. Attention: Unable to do serial 7's. Recall: Able to recall 3 out of 3 objects. Language: Normal spontaneous speech, fluency, repetition, naming, comprehension, reading, and writing. Total Score: 23/30. Results Reviewed Results Reviewed: Laboratory Tests 09/27/24 01/01/25 12:38 18:15 WBC 8.7 9.4 RBC 4.29 4.11 L Hgb 12.4 12.0 Hct 37.4 36.7 L MCV 87.2 89.3 MCH 28.9 29.2 MCHC 33.2 32.7 RDW 14.5 14.6 Plt Count 238 257 MPV 12.0 10.9 Sodium 137 136 Potassium 4.3 3.7 Chloride 97 99 Carbon Dioxide 28 23 Anion Gap 16 18 BUN 15 20 H Creatinine 1.08 1.23 Estim Creat Clear Calc 36.3 Estimated GFR 50 43 Random Glucose 400 H* 178 H Calcium 9.4 9.5 Vitamin B12 761 Folate 13.4 TSH [address] [address] [address] Scan Report Signed Patient: Sonia Marcano MR#: [id number] : 1955 Acct:[id number] Age/Sex: 69 / F ADM Date: 01/01/25 Loc: HO.ED Attending Dr: Ordering Physician: Saira Rouse MD Date of Service: 01/01/25 Procedure(s): CT head/brain wo IV con Accession Number(s): [id number] cc: Shawna Gamble; Saira Rouse MD~ Report Number: [id number]: Total DLP = 647.00 mGy-cm CLINICAL HISTORY: fall, headache CT head without contrast Comparison: CT/SR - CT HEAD/BRAIN WO IV CON - 10/28/24 18:04 EDT Findings: No intra-axial mass, midline shift, hydrocephalus, or acute hemorrhage. Nonspecific white matter hypodensities are present with mild volume loss. The visualized paranasal sinuses and mastoid air cells are normal. The orbits are within normal limits. No skull fracture. IMPRESSION: 1. No acute intracranial findings. This document has been electronically signed by: Tramaine Jay MD, PHD on 01/02/2025 00:05:[address] [address] [address] Scan Report Signed Patient: Sonia Marcano MR#: [id number] : 1955 Acct:[id number] Age/Sex: 69 / F ADM Date: 01/01/25 Loc: HO.ED Attending Dr: Ordering Physician: Saira Rouse MD Date of Service: 01/01/25 Procedure(s): CT cervical spine wo IV con Accession Number(s): [id number] cc: Shawna Gamble; Saira Rouse MD~ Report Number: [id number]: Total DLP = 273.00 mGy-cm CLINICAL HISTORY: fall, mild pain, mostly posterior Headache CT cervical spine without contrast Comparison: CT/SR - CT CERVICAL SPINE WO IV CON - 10/28/24 18:04 EDT Findings: Vertebral alignment is within normal limits. Degenerative changes are moderate. Calcified disc osteophyte complexes are present at C4-C5 and C5-C6. No acute fractures or dislocations. No acute findings on limited view of the intracranial contents. Soft tissues of the neck are normal. No consolidation or effusion at the lung apices. Severe atherosclerotic calcification is noted in the left carotid bulb. IMPRESSION: No acute findings. This document has been electronically signed by: Tramaine Jay MD, PHD on 01/02/2025 00:05:24 NCV/EMG LE 07/12/19 Axonal, sensory greater than motor peripheral neurpathy in the lower extremities. No significant changes since last NCV/EMG done in 2017. Normal EMG in the right L4-S1 innervated muscles. 12/04 CTA; The partially imaged left cervical vertebral artery, the intradural left vertebral artery, and the basilar artery are very small in size which may be congenital and/or may reflect severe vascular disease. Atherosclerotic calcification results in a severe stenosis of the proximal right intradural vertebral artery. 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 - There is extensive atherosclerotic calcification throughout the carotid siphons bilaterally resulting in a severe stenosis of the proximal right cavernous ICA segment and severe stenoses involving the distal left cavernous and left paraclinoid ICA segments. 11/25/22 EEG- WNL 05/2023 labs: anemia 08/2023 CT Brain: Moderate underlying microangiopathy and generalized cerebral volume loss Assessment & Plan Assessment & Plan (1) Migraine headache: Code(s): G43.909 - Migraine, unspecified, not intractable, without status migrainosus Category: Social Hx Qualifiers: Intractability: not intractable Migraine type: unspecified Status migrainosus presence: without status migrainosus Qualified Code(s): G43.909 - Migraine, unspecified, not intractable, without status migrainosus Plan: CT results from ER reviewed, no acute findings. Continue amitriptyline 50mg 2 tablets at bedtime. (2) Tension headache: Code(s): G44.209 - Tension-type headache, unspecified, not intractable Category: Medical (3) MCI (mild cognitive impairment): Code(s): G31.84 - Mild cognitive impairment of uncertain or unknown etiology Category: Medical Plan: Lab results reviewed. Start memantine 5mg 1 tablet twice a day, use/side effects reviewed. (4) Peripheral neuropathy: Code(s): G62.9 - Polyneuropathy, unspecified Category: Medical Qualifiers: Peripheral neuropathy type: polyneuropathy, unspecified Qualified Code(s): G62.9 - Polyneuropathy, unspecified Plan: Continue gabapentin 600mg 1 tablet four times a day. Control blood sugar. Random glucose 09/2024 400, 12/2024 178 (5) Insomnia: Code(s): G47.00 - Insomnia, unspecified Category: Medical Qualifiers: Insomnia type: unspecified Qualified Code(s): G47.00 - Insomnia, unspecified Plan: Continue trazodone 100mg 1 tablet at bedtime (6) Depression: Code(s): F32.A - Depression, unspecified Category: Medical Qualifiers: Depression Type: unspecified Qualified Code(s): F32.A - Depression, unspecified Plan: Continue sertraline 50mg 1 tablet daily. Continue hydroxyzine 25mg 1 tablet as needed twice a day. Plan Meds tried: amitriptyline, mirtazapine, butalbital, duloxetine, gabapentin Medications: New memantine (Namenda) 5 mg PO BID 60 tabs 1RF 30 days gabapentin 600 mg PO QID 360 tabs 1RF 90 days Changed From trazodone 100 mg PO BEDTIME To trazodone 100 mg PO BEDTIME 90 tabs 1RF 90 days Coding Level of Care Code Est Pt Level 4 (34205) Diagnoses Migraine without status migrainosus, not intractable, unspecified migraine type G43.909 Intractability: not intractable Migraine type: unspecified Status migrainosus presence: without status migrainosus Tension headache G44.209 MCI (mild cognitive impairment) G31.84 Peripheral polyneuropathy G62.9 Peripheral neuropathy type: polyneuropathy, unspecified Insomnia, unspecified type G47.00 Insomnia type: unspecified Depression, unspecified depression type F32.A Depression Type: unspecified
--- OUTSIDE RECORDS SUMMARY | 2025-01-03 13:11 | XMS_ITS | Encounter Summary ---
Author Organization [facility] Address [address] [place] [address] Phone Care Team Providers Care Jewelry Engraver Name Role Phone Reena Marinelli Primary Care Provider [phone] Encounter Details Date Type Department Care Team (Late st Contact Info) Description 08/24/2019 Ancillary Orders [facility] [address] [place] [address] [place] [address] Reena Marinelli PA [address] [place] [address] [email or web address] Social History Tobacco Use Types Packs/Day Years Used Date Smoking Tobacco: Never Assessed Comments Unknown Sex and Gender Information Value Date Recorded Sex Assigned at Not on file Legal Sex Female 2:59 PM EDT Gender Identity Not on file Sexual Orientation Not on file documented as of this encounter Plan of Treatment Not on file documented as of this encounter Results * Holter Monitor 48 Hours (08/24/2019 10:56 AM EDT) Anatomical Region Laterality Modality Heart Other Narrative 08/24/2019 12:11 PM EDT 48-hour monitor: The baseline rhythm is sinus with a minimum heart rate of 49, maximum 96, average 63 bpm. There were 43 PACs. There were no PVCs. There was no diary returned. There were patient event markers present, and these occurred during sinus rhythm without ectopy. Impression: Normal 48-hour monitor. Patient event markers during sinus rhythm without ectopy. Procedure Note Paul Jiang MD - 08/24/2019 48-hour monitor: The baseline rhythm is sinus with a minimum heart rate of49, maximum 96, average 63 bpm. There were 43 PACs. There were no PVCs.There was no diary returned. There were patient event markers present,and these occurred during sinus rhythm without ectopy. Impression: Normal 48-hour monitor. Patient event markers during sinusrhythm without ectopy. Reena ESPARZA [facility] ORDERA BLES Final Result documented in this encounter Visit Diagnoses Diagnosis Palpitations Palpitations documented in this encounter Care Teams Jewelry Engraver Relationship Specialty Start Date End Date Reena Marinelli PA [address] [place] [address] [email or web address] PCP - General Welder Gun 08/18/19 documented as of this encounter Additional Source Comments The information contained in this document represents components of the legal health record. It is not the complete legal health record.[facility]
--- OUTSIDE RECORDS SUMMARY | 2025-01-03 13:11 | XMS_ITS | Patient Health Record ---
Author Organization [facility] Address [address] [place] [address] Care Team Providers Care Group Cio Name Role Phone Anish Santiago MD, Arnulfo Primary Care Provide Chavez Gutierrez Jr Unavailable [phone] Allergies Allergen (clinical drug ingredient) Drug/Non Drug Allergy documented on EMR Reaction Allergy Type Onset Date Status Cortisone Unknown Drug Allergy Active acetaminophen / oxycodone Percocet Unknown Drug Allergy Active morphine Morphine Sulfate Unknown Drug Allergy Active sulfamethoxazole / trimethoprim Bactrim Unknown Drug Allergy Active Penicillin Unknown Drug Allergy Active Reason For Referral [...] W/U Status Risk Notes Problem Esophageal reflux (452914622) Esophageal reflux (530.81) Active confirmed Problem Abdominal pain, epigastric (789.06) Active confirmed Plan Of Treatment No Information Insurance Providers Payer Name Payer Address Payer Phone Subscriber Number Group Number Insured Name Patient Relationship to Insured Coverage Start Date Coverage End Date [facility] [employer] [facility] [address] [address] [place], [place] [id number] ABHIJEET TILLEY Self - patient is the insured Medical (General) History Medical History History ICD Code colonoscopy 12-09-2005 Diabetes mellitus type 2 Neuropathy Elevated cholesterol Hypertension Surgical History Surgery Date(Month/Year) Bilateral carpal tunnel release Cholecystectomy
--- OUTSIDE RECORDS SUMMARY | 2025-01-03 13:11 | XMS_ITS | Clinical Summary ---
Author Organization [facility] Address [address] [place] [address] Care Team Providers Care Screen Printer Helper Name Role Phone Unavailable Primary Care [...]
--- OUTSIDE RECORDS SUMMARY | 2025-01-03 13:11 | XMS_ITS | Clinical Summary ---
Author Organization [address] [facility] Address [address] [place] [address] Phone Care Team Providers Care Cooker Cleaner Name Role Phone Shawna Gamble MD Primary Care Provider [phone] Medical History Medical History Date Comments HTN (hypertension) 01/22/2012 DX:HTN (hyper tension) Historical Medical DX 01/22/2012 DX:Hyperli pidemia LDL goal < 70 DM2 (diabetes mellitus, type 2) (CMS/HCC V24, CMS/HCC V28) 01/22/2012 DX:DM2 (diabetes mellitus, type 2) ([facility]) Coronary atherosclerosis of unspecified type of vessel, [place] or graft 01/22/2012 DX:Coronary atherosclerosis of unspecified type of vessel, [place] or graft Carotid stenosis 01/22/2012 DX:Carotid sten [...] Upcoming Encounters Date Type Department Care Team ([facility] Contact Info) Description 01/25/2025 10:00 AM EDT Consult Orthopedic Surgery - [place] [address] [facility] [address] [place] [id number] Mitesh Pedersen, DPM [address] [facility] [address] [place] [address] Health Maintenance Due Date Last Done Comments [...] complete this topic Insurance [place] - [place] [facility] OPTIONS Member Subscriber Plan / Payer (Ef fective 2024-Present) Name:JeetSaraAbhijeet Relation to Subscriber:Self Name:Jeet Abhijeet Payer ID:[id number] Group ID:Not on file Type:Not on file Address: [facility] [address] [place] [id number] Care Teams Cooker Cleaner Relationship Specialty Start Date End Date Shawna Gamble MD [address] [place] [id number] PCP - General Insurance Agents Supervisor 10/24/24
--- OUTSIDE RECORDS SUMMARY | 2025-01-03 13:12 | XMS_ITS | Clinical Summary ---
Author Organization [facility] Address [address] [address] Phone Care Team Providers Care Filer Helper Name Role Phone Shawna Gamble MD Primary [...] the rectum 3 Active Cholecalciferol 250 MCG (82697 UT) capsule TAKE 1 CAPSULE BY MOUTH [...] bypass grafting 12/1503/11/2023 Overview (03/11/2023): 07/2022 at [facility] Chest pain on breathing 12/04/2022 03/11/20 [...] 50+ Years Completed 04/02/2021, 05/11/2019, 03/02/2002 Insurance [facility] ([id number]) [facility] ([id number]) Care Teams Filer Helper Relationship Specialty Start Date End Date Shawna Gamble MD [address] [place] [id number] PCP - General Solar Installation Supervisor 02/16/24
== END 2025-01-03 12:48 | disposition home or self-care (01) ==
LOC: HO.HSM 12:05
PROVIDERS: PCP Internal Medicine; Referring Provider Internal Medicine; Visit Provider Registered Nurse
DX: G43.909 Migraine, unspecified, not intractable, without status migrainosus (principal); G44.209 Tension-type headache, unspecified, not intractable; G31.84 Mild cognitive impairment of uncertain or unknown etiology; G62.9 Polyneuropathy, unspecified; G47.00 Insomnia, unspecified; F32.A Depression, unspecified
CPT/HCPCS: 99214

== ENCOUNTER → 2025-01-03 12:04 | Outpatient (BNVA) | payer OTHER, SELFPAY | PROVIDERS: PCP Internal Medicine; Referring Provider Internal Medicine; Visit Provider Registered Nurse | DX: G43.909 Migraine, unspecified, not intractable, without status migrainosus (principal); G44.209 Tension-type headache, unspecified, not intractable; G31.84 Mild cognitive impairment of uncertain or unknown etiology; G62.9 Polyneuropathy, unspecified; G47.00 Insomnia, unspecified; F32.A Depression, unspecified | CPT/HCPCS: 99212 ==

== ENCOUNTER 2025-01-08 16:52 | Outpatient (REF) | payer OTHER, SELFPAY ==
--- NOTE | ~2025-01-08 | XR_ITS ---
EXAMINATION: XR HIP, RIGHT CLINICAL INFORMATION: r hip pain and bruise, fall one week ago COMPARISON: October 28, 2024 TECHNIQUE: Two views of the right hip. FINDINGS: There are small marginal sites along the acetabular roof and femoral head. There is mild to moderate axial joint space narrowing. No fracture or deformity is identified. Moderate to severe atherosclerotic calcifications are present in the femoral arteries. Linear pyrophosphate deposition is evident in the symphysis pubis joint. 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 Electronically signed by: Pj Osullivan MD 01/08/2025 05:24 PM EDT
== END 2025-01-08 16:53 | disposition home or self-care (01) ==
LOC: HO.XRAY 16:52
PROVIDERS: PCP General Practice; Visit Provider General Practice
DX: S70.01XA Contusion of right hip, initial encounter (principal); M25.551 Pain in right hip; W19.XXXA Unspecified fall, initial encounter
CPT/HCPCS: 73502

== ENCOUNTER → 2025-01-08 16:56 | Outpatient (BNV) | payer OTHER, SELFPAY | PROVIDERS: PCP General Practice; Visit Provider Radiology Diagnostic Radiology | DX: S70.01XA Contusion of right hip, initial encounter (principal); M25.551 Pain in right hip; W19.XXXA Unspecified fall, initial encounter | CPT/HCPCS: 73502 ==

== ENCOUNTER 2025-02-12 15:36 | Emergency (ER) | payer OTHER, SELFPAY ==
[2025-02-12] VITALS (7 sets, daily range): BP systolic 140–188; BP diastolic 75–111; PULSE 72–82; RESP 12–18; TEMP 36.4–36.9; O2SAT 95–98; BMI 23.3
--- NOTE | ~2025-02-12 | CT_ITS ---
CLINICAL HISTORY: fall, head strike, on AC CT cervical spine without contrast Comparison: CT/SR - CT CERVICAL SPINE WO IV CON - 01/01/25 23:04 EDT Findings: There is straightening of the normal cervical lordosis. No fracture or acute malalignment. Multilevel degenerative changes with disc space narrowing throughout the cervical spine. The facet joints are normally imbricated. No prevertebral soft tissue edema. Lung apicies demonstrate no acute process. Impression: Multilevel degenerative changes without evidence of acute fracture or acute malalignment. This document has been electronically signed by: Sonny Han MD on 02/12/2025 18:19:06
--- NOTE | ~2025-02-12 | CT_ITS ---
CLINICAL HISTORY: fall, head strike, on AC CT head without contrast Comparison: CT/REG/SR - CT HEAD/BRAIN WO IV CON - 01/01/25 23:04 EDT Findings: No evidence of acute territorial infarct. There is patchy low density in the periventricular and subcortical white matter. Diffuse volume loss is noted. No hydrocephalus. No hemorrhage, mass effect, mass lesion or midline shift. No abnormal extra-axial fluid. No calvarial fracture. Paranasal sinuses and mastoid air cells are clear. Impression: No acute intracranial process. Chronic changes as detailed. This document has been electronically signed by: Sonny Han MD on 02/12/2025 18:09:07
--- NOTE | ~2025-02-12 | CT_ITS ---
CLINICAL HISTORY: fall R flank pain bruising on thinners CT abdomen and pelvis with contrast Comparison: 10/28/2024 Findings: Lung bases demonstrate mild dependent change and/or scarring. The gallbladder is absent. The liver, spleen, adrenal glands and pancreas are unremarkable. Kidneys and ureters are normal. The bladder is significantly distended. Uterus and adnexa are unremarkable. The colon demonstrates diffuse dilation and fecal retention. Several stones are present within the cecal base. Appendix not definitively identified. Severe atherosclerotic disease. Degenerative changes seen within the spine. No definite acute osseous abnormality. Impression: No definite acute process. Fecal retention throughout the colon. Significant bladder distention, nonspecific. This document has been electronically signed by: Sonny Han MD on 02/12/2025 20:38:28
--- NOTE | ~2025-02-12 | CT_ITS ---
CLINICAL HISTORY: fall R posterior chest wall pain on thinners CT chest with contrast Comparison: CT/SR - CT CHEST W IV CON - 10/28/24 18:08 EDT Findings: The heart size is normal. There is moderate atherosclerotic disease of the coronary arteries. No significant mediastinal adenopathy or pericardial effusion. No thyroid lesion identified. Nonspecific streaky density within the anterior right lower lobe, axial 69, similar to prior. No effusion or pneumothorax. No displaced rib fracture. Reformatted imaging of the thoracic spine demonstrates no acute fracture. Impression: No definite acute process in the chest. Incidental findings as detailed. This document has been electronically signed by: Sonny Han MD on 02/12/2025 20:43:41
--- NOTE | 2025-02-12 15:47 | ED.GENADULT ---
HPI - General Adult General Chief complaint: Fall Stated complaint: Back pain Time Seen by Provider: 02/12/25 17:57 Source: patient, family (son) and hourly sign language interpreter ([place]izen [place]) Mode of arrival: ambulatory Limitations: language barrier ([place]izen [place] speaking) History of Present Illness ED Provider: LANNY BEAL PA-C HPI narrative: 69-year-old female presents to the ED today for evaluation of right flank pain s/p fall 2 days ago. Patient reports feeling generally weak over the past few months. She states her legs will sometimes give out as she is walking. She typically ambulates with a walker. She reports walking through her home 2 days ago when she felt her legs buckle, causing her to fall onto her right side. She denies head strike or LOC. She is anticoagulated on Xarelto. Pain is worse with movement/ palpation of the area. She has been taking tylenol without improvement. Denies headache, dizziness, chest pain, sob, hemoptysis. Related Data Home Medications ?Medication ?Instructions ?Recorded ?Confirmed atorvastatin 80 mg tablet 80 mg PO DAILY 02/12/20 12/28/24 aspirin 81 mg tablet,delayed 81 mg PO DAILY 07/10/20 12/28/24 release (Adult Low Dose Aspirin) metoprolol tartrate 25 mg tablet 1 tab PO BID 03/16/21 12/28/24 sertraline 50 mg tablet 50 mg PO DAILY 12/09/22 01/03/25 duloxetine 20 mg capsule,delayed 20 mg PO DAILY 10/22/23 12/28/24 release furosemide 20 mg tablet 20 mg PO DAILY 10/22/23 12/28/24 lisinopril 40 mg tablet 40 mg PO DAILY 10/22/23 12/28/24 loratadine 10 mg tablet 10 mg PO DAILY 10/22/23 12/28/24 magnesium oxide 400 mg (241.3 mg 400 mg PO QAM 10/22/23 12/28/24 magnesium) tablet rivaroxaban 2.5 mg tablet (Xarelto) mg PO 10/22/23 12/28/24 empagliflozin 10 mg tablet 10 mg PO DAILY 12/28/24 12/28/24 (Jardiance) ferrous gluconate 324 mg (38 mg 324 mg PO QAM 12/28/24 12/28/24 iron) tablet metformin 500 mg tablet,extended 1,000 mg PO BID 12/28/24 12/28/24 release 24 hr pilocarpine HCl 5 mg tablet 5 mg PO TID 12/28/24 12/28/24 hydroxyzine HCl 25 mg tablet 25 mg PO BID PRN 01/03/25 01/03/25 Previous Rx's ?Medication ?Instructions ?Recorded hydrocodone 5 mg-acetaminophen 325 1 tab PO Q8H PRN pain #15 tabs 11/06/23 mg tablet sennosides 8.6 mg tablet (senna) 17.2 mg (2 x 8.6 mg) PO BEDTIME 09/19/24 PRN for constipation #180 tabs acetaminophen 650 mg 650 mg PO Q8H PRN pain #30 tabs 10/28/24 tablet,extended release (Tylenol Arthritis Pain) omeprazole 40 mg capsule,delayed 40 mg PO DAILY #90 caps 12/04/24 release amitriptyline 50 mg tablet 100 mg (2 x 50 mg) PO BEDTIME 90 12/27/24 days #180 tabs lidocaine 5 % topical patch 1 patch topical DAILY #30 ea 12/28/24 linaclotide 145 mcg capsule 145 mcg PO QAM 30 days #30 caps 12/28/24 (Linzess) gabapentin 600 mg tablet 600 mg PO QID 90 days #360 tabs 01/03/25 memantine 5 mg tablet (Namenda) 5 mg PO BID 30 days #60 tabs 01/03/25 trazodone 100 mg tablet 100 mg PO BEDTIME 90 days #90 tabs 01/03/25 docusate sodium 100 mg capsule 100 mg PO DAILY #90 caps 02/13/25 Allergies Allergy/AdvReac Type Severity Reaction Status Date / Time cortisone (CORTISONE) Allergy Intermediate RASH Verified 02/12/25 15:54 hydrocortisone Allergy Intermediate Rash Verified 02/12/25 15:54 morphine (Morphine) Allergy Intermediate RASH, Verified 02/12/25 15:54 ITCHING oxycodone (From Percocet) Allergy Intermediate Nausea and Verified 02/12/25 15:54 Vomiting Penicillins Allergy Intermediate ITCHING Verified 02/12/25 15:54 sulfamethoxazole (From Allergy Intermediate Rash Verified 02/12/25 15:54 Bactrim) trimethoprim (From Bactrim) Allergy Intermediate Rash Verified 02/12/25 15:54 acetaminophen (From Percocet) Allergy Mild Unknown Verified 02/12/25 15:54 azithromycin Allergy Mild Unknown Verified 02/12/25 15:54 doxycycline Allergy Mild Unknown Verified 02/12/25 15:54 tramadol Allergy Mild Unknown Verified 02/12/25 15:54 tylenol codeine Allergy Mild Unknown Uncoded 01/03/25 12:27 Review of Systems Review of Systems: Yes all other systems are reviewed and are negative PMFSH Past Medical History Attestation statement: The following information was validated with the patient. Source: old records reviewed and nursing notes reviewed Medical History Anemia Rheumatic arteritis Neuropathy History of heart attack Diabetes Pancreatic insufficiency GERD (gastroesophageal reflux disease) Surgical History History of open heart surgery Hx of cardiac catheterization Hx of heart artery stent Hx of colonoscopy History of esophagogastroduodenoscopy (EGD) History of bilateral carpal tunnel release History of cholecystectomy H/O colonoscopy with polypectomy Family History Family History Father No problems noted. Mother No problems noted. Brother No problems noted. Sister Breast cancer Lymphoma Sister No problems noted. Sister No problems noted. Sister No problems noted. Social History Social History Household Members: None Are you a primary skin care consultant to a significant other at home: No Do you presently have visiting nurse or other home services: No Alcohol intake: never Patient Tobacco Use Status: Never used Tobacco Smoked in Last 30 Days: No Use of substances other than those prescribed or required for medical reasons: No Advance Directives: No Advance Directives Information Provided: Yes Do you have a plan to hurt others: No Plan Current occupational status: unemployed and disabled Physical Exam ED Vital Signs: Vital Signs - 24 hr 02/12/25 15:47 02/12/25 18:23 02/12/25 18:25 Temperature 98.5 F 98.1 F Pulse Rate 80 76 78 Respiratory Rate 16 16 18 Blood Pressure 147/75 H 144/79 H 186/87 H Pulse Oximetry 98 97 98 Oxygen Delivery Method Room Air Room Air 02/12/25 18:25 02/12/25 20:29 02/12/25 21:34 Temperature 97.6 F 97.6 F Pulse Rate 78 82 73 Respiratory Rate 18 18 12 Blood Pressure 186/87 H 188/86 H 140/111 H Pulse Oximetry 98 95 97 Oxygen Delivery Method Room Air Room Air Room Air 02/12/25 21:36 02/12/25 22:03 Temperature 97.6 F Pulse Rate 72 72 Respiratory Rate 16 Blood Pressure 140/111 H 140/111 H Pulse Oximetry 97 Oxygen Delivery Method Room Air BMI result Body Mass Index 23.3 hypertensive, vitals are otherwise wnl General: Well appearing, in no acute distress. Skin: Warm, dry, intact. No rashes or lesions. Head: Normocephalic, atraumatic. EENT: Hearing is intact b/l. Conjunctiva clear. PERRLA. EOM intact. Moist mucous membranes.? Neck: no midline c spine tenderness, FROM to c spine Cardiac: Chest wall symmetric. RRR Lungs: Normal respiratory effort without accessory muscle use. CTA bilaterally. No rales, rhonchi, or wheezes.? Abdomen: Soft, non-tender, non-distended. No rebound tenderness or guarding. Positive BS x4. see photo of right flank below: healing ecchymosis, ttp without palpable fluctuance/warmth/induration. Back: No midline spinous or paraspinal tenderness. No step off deformity. Ext: Upper and lower extremities atraumatic, without tenderness, deformity, swelling or erythema. Full ROM throughout Neuro: AOx3. Normal speech. NIH 0. Strength 4/5 intact throughout. No saddle anesthesia. Sensation intact to light touch. NV intact distally. Ambulating with steady gait. Course Course Course Narrative: Rapid medical examination performed in triage by Kady Sibley PA-C. Patient is a 69 year old assigned female at presenting to the emergency department with weakness / off balance and falling. Patient states that 2 days ago she fell and has been weak / feeling generally unwell ever since. Patient states that she is on Plavix + ASA. Detailed physical exam and review of systems are deferred to the mental health clinician. EKG, labs, imaging ordered. Patient placed back in the waiting room pending room availability and results. Reevaluation(s) Reevaluation #1: CBC with leukocytosis to 11.3, no left shift. Normocytic anemia, H&H above transfusion threshold. Hypomagnesemia to 1.5. repletion ordered. No other acute electrolyte abnormality requiring intervention. Renal function around baseline. Random glucose 180, no gap. Liver function around baseline. Troponin undetectable. Urine without infection. CT head/ neck/ chest/ abdomen without acute abnormality. > discussed all work up results w/ patient. given recent generalized weakness, discussed PT/CM consults. patient declining at this time. Patient has remained stable throughout ED visit today. Discussed worrisome signs and symptoms and when to return to the ED. All questions answered at this time. Patient is agreeable with disposition and stable for discharge. Medications Administered Discontinued Medications Generic Name Dose Route Start Last Admin Trade Name Freq PRN Reason Stop Dose Admin Acetaminophen 1,000 mg in 100 mls @ 400 mls/hr 02/12/25 18:41 02/12/25 19:30 Ofirmev IV 02/12/25 18:55 Infused ONCE ONE Infusion Magnesium Sulfate 2 gm in 50 mls @ 150 mls/hr 02/12/25 21:01 02/12/25 21:37 Magnesium Sulfate/H2o IV 02/12/25 21:20 Infused ONCE ONE Infusion Iohexol 85 ml 02/12/25 20:07 02/12/25 20:07 Iohexol 350 Mg/Ml 100 Ml Infus..Btl IV 02/12/25 20:08 85 ml ONCE ONE Administration Metoprolol Tartrate 25 mg 02/12/25 21:25 02/12/25 21:36 Metoprolol Tartrate 25 Mg Tablet PO 02/12/25 21:26 25 mg ONCE ONE Administration Protocol Medical Decision Making Medical Decision Making [facility] Narrative: 69-year-old female presents to the ED today for evaluation of right flank pain s/p fall 2 days ago. hypertensive, vitals are otherwise wnl. see exam portions for findings. Differential diagnosis includes contusion, msk sprain/strain, intra abdominal bleed, liver laceration, renal laceration, rib fracture, pneumo/hemothorax. Plan for labs, imaging, pain control and re-evaluation. Differential Diagnosis Differential Diagnoses: The differential diagnosis associated with the presentation includes as above. Admission/Observation not indicated Lab Data [facility] Lab Attestation statement: I reviewed the patient's lab results. as above. 02/12/25 17:02 02/12/25 17:02 Labs: Lab Results 02/12/25 02/12/25 Range/Units 17:02 20:45 WBC 11.3 H (4.8-10.8) X10*3/uL RBC 3.82 L (4.20-5.50) X10*6/uL Hgb 11.3 L (12.0-16.0) g/dl Hct 34.1 L (37.0-47.0) % MCV 89.3 (80.0-98.0) fL MCH 29.6 (27.0-33.0) pg MCHC 33.1 (31.0-35.0) g/dl RDW 14.9 (11.0-16.0) % Plt Count 283 (160-400) X10*3/uL MPV 11.9 (9.4-12.3) fL Immature Gran % (Auto) 0.5 H (0.0-0.4) % Neut % (Auto) 65.7 (45-73) % Lymph % (Auto) 20.8 (20-40) % [place] % (Auto) 8.2 (2-11) % Eos % (Auto) 3.9 (0-4) % Baso % (Auto) 0.9 (0-2) % Lymph # (Auto) 2.4 (1.2-4.9) X10*3/uL [place] # (Auto) 0.9 (0.1-1.2) X10*3/uL Eos # (Auto) 0.4 (0.0-0.4) X10*3/uL Baso # (Auto) 0.1 (0.0-0.2) X10*3/uL Abs Immat Gran (auto) 0.06 H (0.00-0.03) X10*3/uL Absolute Neuts (auto) 7.4 (2.0-8.3) x10*3/uL Absolute Nucleated RBC 0.000 (0.0-0.012) X10*3/uL Nucleated RBC % (auto) 0.0 (0.0-0.2) /100WBC PT 11.8 (10.9-12.4) SEC INR 1.0 (0.9-1.1) Sodium 139 (135-145) mmol/L Potassium 4.1 (3.3-5.1) mmol/L Chloride 101 (96-108) mmol/L Carbon Dioxide 25 (22-29) mmol/L Anion Gap 17 (12-20) BUN 18 H (9-16) mg/dL Creatinine 1.12 (0.5-1.4) mg/dL Estim Creat Clear Calc 39.8 Estimated GFR 48 Random Glucose 180 H (60-115) mg/dL Calcium 9.9 (8.4-10.2) mg/dL Magnesium 1.5 L (1.6-2.6) mg/dL Total Bilirubin 0.2 (0.0-1.0) mg/dL AST 49 H (5-31) U/L ALT 36 H (0-31) U/L Alkaline Phosphatase 136 H (39-117) U/L Troponin I High Sens < 2.7 (<3.5-17.0) ng/L Total Protein 7.5 (6.5-8.0) g/dL Albumin 4.6 (3.5-5.0) g/dL Urine Color Yellow Urine Appearance Clear Urine pH 6.5 (5.0-9.0) Ur Specific [place] 1.015 (1.005-1.025) Urine Protein Negative (Neg-Trace) mg/dL Urine Glucose (UA) >=1000 H (Negative) mg/dL Urine Ketones Negative (Negative) mg/dL Urine Blood Negative (Negative) Urine Nitrite Negative (Negative) Ur Leukocyte Esterase Negative (Negative) Urine RBC 0-2 (0-2) /HPF Urine WBC 0-5 (0-5) /HPF Ur Squamous Epith Cells 0-2 (0-2) /HPF Urine Bacteria None Seen (None Seen) Hyaline Casts 0-2 (0-2) /LPF Independent Interpretation I performed an independent interpretation of an: CT Scan Interpretation: ct head without bleed ct cervical spine without fracture ct chest without without intrathoracic bleed ct abd without intraabdominal fracture Radiology Impression Discussion of test interpretation with radiology: I have reviewed the radiologist's reading. Radiologist Impression: Date of Service: 02/12/25 Procedure(s): CT head/brain wo IV con Accession Number(s): [id number] cc: Kady Sibley; Garrick Gamble Report Number: [id number]: Total DLP = 920.00 mGy-cm Reason for Exam: fall, head strike, on AC CLINICAL HISTORY: fall, head strike, on AC CT head without contrast Comparison: CT/REG/SR - CT HEAD/BRAIN WO IV CON - 01/01/25 23:04 EDT Findings: No evidence of acute territorial infarct. There is patchy low density in the periventricular and subcortical white matter. Diffuse volume loss is noted. No hydrocephalus. No hemorrhage, mass effect, mass lesion or midline shift. No abnormal extra-axial fluid. No calvarial fracture. Paranasal sinuses and mastoid air cells are clear. Impression: No acute intracranial process. Chronic changes as detailed. This document has been electronically signed by: Sonny aHn MD on 02/12/2025 18:09:07 Date of Service: 02/12/25 Procedure(s): CT cervical spine wo IV con Accession Number(s): [id number] cc: Kady Sibley; Shawna Gamble~ Report Number: [id number]: Total DLP = 0.00 mGy-cm Reason for Exam: fall, head strike, on AC CLINICAL HISTORY: fall, head strike, on AC CT cervical spine without contrast Comparison: CT/SR - CT CERVICAL SPINE WO IV CON - 01/01/25 23:04 EDT Findings: There is straightening of the normal cervical lordosis. No fracture or acute malalignment. Multilevel degenerative changes with disc space narrowing throughout the cervical spine. The facet joints are normally imbricated. No prevertebral soft tissue edema. Lung apicies demonstrate no acute process. Impression: Multilevel degenerative changes without evidence of acute fracture or acute malalignment. This document has been electronically signed by: Sonny Han MD on 02/12/2025 18:19:06 Date of Service: 02/12/25 Procedure(s): CT chest w IV con Accession Number(s): [id number] cc: Shawna Gamble; Lanny Beal~ Report Number: [id number]: Total DLP = 198.00 mGy-cm Reason for Exam: fall R posterior chest wall pain on thinners CLINICAL HISTORY: fall R posterior chest wall pain on thinners CT chest with contrast Comparison: CT/SR - CT CHEST W IV CON - 10/28/24 18:08 EDT Findings: The heart size is normal. There is moderate atherosclerotic disease of the coronary arteries. No significant mediastinal adenopathy or pericardial effusion. No thyroid lesion identified. Nonspecific streaky density within the anterior right lower lobe, axial 69, similar to prior. No effusion or pneumothorax. No displaced rib fracture. Reformatted imaging of the thoracic spine demonstrates no acute fracture. Impression: No definite acute process in the chest. Incidental findings as detailed. This document has been electronically signed by: Sonny Han MD on 02/12/2025 20:43:41 Date of Service: 02/12/25 Procedure(s): CT abdomen pelvis w IV con Accession Number(s): [id number] cc: Shawna Gamble; Lanny Beal~ Report Number: [id number]: Total DLP = 416.00 mGy-cm Reason for Exam: fall R flank pain/bruising on thinners CLINICAL HISTORY: fall R flank pain bruising on thinners CT abdomen and pelvis with contrast Comparison: 10/28/2024 Findings: Lung bases demonstrate mild dependent change and/or scarring. The gallbladder is absent. The liver, spleen, adrenal glands and pancreas are unremarkable. Kidneys and ureters are normal. The bladder is significantly distended. Uterus and adnexa are unremarkable. The colon demonstrates diffuse dilation and fecal retention. Several stones are present within the cecal base. Appendix not definitively identified. Severe atherosclerotic disease. Degenerative changes seen within the spine. No definite acute osseous abnormality. Impression: No definite acute process. Fecal retention throughout the colon. Significant bladder distention, nonspecific. This document has been electronically signed by: Sonny Han MD on 02/12/2025 20:38:28 Independent Historian Clinical information obtained from an independent historian. History obtained from or confirmed by: Other (son) External Record Review External record reviewed: Inpatient record Prescription Management I considered prescription management with: Pain Medication Social Determinants Patient?s care significantly limited by Social Determinants of Health including: Other Social Determinant of Health Critical Care Time Critical Care Time Critical Care Time: No Discharge Plan Discharge Clinical Impression: Fall, Contusion of right flank, Hypomagnesemia, Generalized weakness Patient Disposition: Home, Self-Care Instructions: Contusion in Adults (ED), Weakness (ED), Fall Prevention (ED) Additional Instructions: You were evaluated in the ED today for injuries sustained during a fall two days ago. Your blood work showed low magnesium levels. You were given magnesium in ED today. Your blood work is otherwise reassuring. The CT scans of your head, neck, chest and abdomen are all reassuring. There is no evidence of rib fracture or intra-abdominal bleed. Your urine does not demonstrate infection. You were offered physical therapy evaluation however are declining at this time. You may take Tylenol at home as needed for pain/discomfort. Return with any new or worsening symptoms. In the case of an emergency call 911. Prescriptions: No Action hydrocodone-acetaminophen 5-325 mg tablet 1 tab PO Q8H PRN (Reason: pain) Qty: 15 0RF Rx Instructions: Partial Fill upon patient request. sennosides [senna] 8.6 mg tablet 17.2 mg PO BEDTIME PRN (Reason: for constipation) Qty: 180 1RF omeprazole 40 mg capsule,delayed release(DR/EC) 40 mg PO DAILY Qty: 90 1RF amitriptyline 50 mg tablet 100 mg PO BEDTIME 90 Days Qty: 180 0RF docusate sodium 100 mg capsule 100 mg PO DAILY Qty: 90 1RF metoprolol tartrate 25 mg tablet 1 tab PO BID acetaminophen [Tylenol Arthritis Pain] 650 mg tablet extended release 650 mg PO Q8H PRN (Reason: pain ) Qty: 30 0RF magnesium oxide 400 mg (241.3 mg magnesium) tablet 400 mg PO QAM furosemide 20 mg tablet 20 mg PO DAILY lisinopril 40 mg tablet 40 mg PO DAILY loratadine 10 mg tablet 10 mg PO DAILY duloxetine 20 mg capsule,delayed release(DR/EC) 20 mg PO DAILY Xarelto 2.5 mg tablet PO atorvastatin 80 mg tablet 80 mg PO DAILY aspirin [Adult Low Dose Aspirin] 81 mg tablet,delayed release (DR/EC) 81 mg PO DAILY sertraline 50 mg tablet 50 mg PO DAILY pilocarpine HCl 5 mg tablet 5 mg PO TID Jardiance 10 mg tablet 10 mg PO DAILY metformin 500 mg tablet extended release 24 hr 1,000 mg PO BID ferrous gluconate 324 mg (38 mg iron) tablet 324 mg PO QAM lidocaine 5 % adhesive patch,medicated 1 patch topical DAILY Qty: 30 0RF Rx Instructions: leave on most painful area for up to 12 hrs Katie 145 mcg capsule 145 mcg PO QAM 30 Days Qty: 30 3RF hydroxyzine HCl 25 mg tablet 25 mg PO BID PRN gabapentin 600 mg tablet 600 mg PO QID 90 Days Qty: 360 1RF trazodone 100 mg tablet 100 mg PO BEDTIME 90 Days Qty: 90 1RF memantine [Namenda] 5 mg tablet 5 mg PO BID 30 Days Qty: 60 1RF Referrals: Shawna Gamble MD [Primary Care Provider, Internal Medicine] Interventions: ED Discharge Assessment Last Done: 02/12/25 22:03 Discharge Date/Time: 02/12/25 22:04 Print Language: Citizen [place]
--- NOTE | 2025-02-12 15:53 | ECG_ITS ---
Test Reason : WEAKNESS Blood Pressure : */* mmHG Vent. Rate : 74 BPM Atrial Rate : 74 BPM P-R Int : 172 ms QRS Dur : 90 ms QT Int : 388 ms P-R-T Axes : 41 22 17 degrees QTcB Int : 430 ms Normal sinus rhythm with sinus arrhythmia Normal ECG When compared with ECG of 01-Jan-2025 18:10, No significant change was found Referred By: Kady Sibley Electronically Signed By: MOISES REEVES
[2025-02-12 17:11] LABS: MANUAL DIFF FLAG NO
[2025-02-12 17:16] LABS: Hematocrit 34.1 % (37.0-47.0); Hemoglobin 11.3 g/dl (12.0-16.0); Imm Gran Abs Auto 0.06 X10*3/uL (0.00-0.03); Imm Gran Pct Auto 0.5 % (0.0-0.4); Lymphocytes Absolute Auto 2.4 X10*3/uL (1.2-4.9); Mean Corpuscular HGB Conc 33.1 g/dl (31.0-35.0); Mean Corpuscular Hemoglobin 29.6 pg (27.0-33.0); Mean Corpuscular Volume 89.3 fL (80.0-98.0); NRBC Abs Auto 0.000 X10*3/uL (0.0-0.012); NRBC Pct Auto 0.0 /100WBC (0.0-0.2); Platelet Count 283 X10*3/uL (160-400); Red Blood Count 3.82 X10*6/uL (4.20-5.50); White Blood Count 11.3 X10*3/uL (4.8-10.8)
[2025-02-12 17:23] LABS: INTERNATIONAL NORM RATIO 1.0 (0.9-1.1); Prothrombin Time 11.8 SEC (10.9-12.4)
[2025-02-12 17:27] LABS: Alanine Aminotransferase 36 U/L (0-31); Albumin Level 4.6 g/dL (3.5-5.0); Alkaline Phosphatase 136 U/L (39-117); Anion Gap 17 (12-20); Aspartate Amino Transferase 49 U/L (5-31); Blood Urea Nitrogen 18 mg/dL (9-16); Calcium 9.9 mg/dL (8.4-10.2); Carbon Dioxide 25 mmol/L (22-29); Chloride 101 mmol/L (96-108); Creatinine Clr Calc Pharmacy 39.8; Estimated Glomerular Filt Rate 48; Magnesium 1.5 mg/dL (1.6-2.6); Potassium 4.1 mmol/L (3.3-5.1); Sodium 139 mmol/L (135-145); Total Protein 7.5 g/dL (6.5-8.0)
[2025-02-12 17:35] LABS: Troponin-I High Sensitivity < 2.7 ng/L (<3.5-17.0)
--- OUTSIDE RECORDS SUMMARY | 2025-02-12 18:28 | XMS_ITS | Encounter Summary ---
Author Organization [employer] Address [address] [place] [address] Care Team Providers Care Marine Oiler Name Role Phone Shawna Gamble MD Primary Care Provider [phone] Encounter Details Date Type Department Care Team ([facility] st Contact Info) Description 01/06/2024 Orders Only [facility] [address] [place] [address] Anisha Mc MD [address] [place] [address] Social History Tobacco Use Types Packs/Day Years [...] as of this encounter Plan of Treatment Upcoming Encounters Date Type Department Care Team (Late st Contact Info) Description 03/02/2025 11:00 AM EDT Medication Management [facility] [address] [place] [address] Apurva Corona, HennyD [address] [place] [address] documented as of this encounter Visit Diagnoses Not on filedocumented in this encounter Additional Health Concerns Assessment Noted Time PHQ-9 Depression Total Score: 6 10/15/19 24 11:05 AM EDT documented as of this encounter Care Teams Marine Oiler Relationship Specialty Start Date End Date Shawna Gamble MD [address] [place] [address] PCP - General Family Medicine 05/13/22 [employer] 01/22/25 documented as of this encounter
--- OUTSIDE RECORDS SUMMARY | 2025-02-12 18:28 | XMS_ITS | Clinical Summary ---
Author Organization [facility] Address [address] [place] [address] Care Team Providers Care Sanitizer Name Role Phone Unavailable Primary Care Provider Unavailabl e Social History Tobacco Use Types Packs/Day Years Used Date Smoking Tobacco: Never Assessed Comments Unknown Sex and Gender Information Value Date Recorded Sex Assigned at Not on file Legal Sex Female 2:59 PM EDT Gender Identity Not on file Sexual Orientation Not on file Plan of Treatment Health Maintenance Due Date Last Done Comments Advance Care Planning 1955 Hepatitis C Virus Screening 1955 DTaP/Tdap/Td Vaccines (1 - Tdap) 1972 Pneumococcal Vaccines 50+ (1 of 1 - PCV) 09/06/2003 Zoster (Shingles) Vaccine (1 of 2) 09/06/2003 COVID-19 Vaccine ( - 2023-2 5 season) 2025 RSV Vaccine 60 years and old er and Patients (1 - 1-dose 75+ series) 2028 Hepatitis B Vaccines Aged Out No long er eligible based on patient's age to complete this topic
--- OUTSIDE RECORDS SUMMARY | 2025-02-12 18:28 | XMS_ITS | Clinical Summary ---
Author Organization [facility] Address [address] [id number] Phone Care Team Providers Care Bottom Hoop Driver Name Role Phone Shawna Gamble MD Primary [...] the rectum 3 Active Cholecalciferol 250 MCG (41026 UT) capsule TAKE 1 CAPSULE BY MOUTH [...] bypass grafting 12/1503/11/2023 Overview (03/11/2023): 07/2022 at [facility] Chest pain on breathing 12/04/2022 03/11/20 [...] Visual Foot Exam 01/21/2023 Influenza Vaccine (#1) 2025 3, 03/04/2022, 04/02/2021, Additional history exists Diabetes: Hemoglobin A1C 04/10/2025 025, 12/08/2023, 07/14/2023, Additional history exists Hepatitis B Vaccine Aged Out 04/27/2018, 8 No longer eligible based on patient's age to complete this topic Pneumococcal Vaccine: 50+ Years Completed 04/02/2021, 05/11/2019, 03/02/2002 Insurance [facility] ([id number]) [facility] ([id number]) Care Teams Bottom Hoop Driver Relationship Specialty Start Date End Date Shawna Gamble MD [address] [place] [id number] PCP - General Industrial Paramedic 02/16/24
--- OUTSIDE RECORDS SUMMARY | 2025-02-12 18:28 | XMS_ITS | Encounter Summary ---
Author Organization [employer] [facility] Address [address] [place] [address] [address] [place] [address] Care Team Providers Care Mechatronics Engineer Name Role Phone Makenna Trinidad MD Primary Care Provider Shawna Hand MD Primary Care Provider [phone] Encounter Details Date Type Department Care Team (Late st Contact Info) Description 04/20/2022 Abstract [facility] ADULT [facility] [address] [place] [address] Dental, Provider, DDS Social History Tobacco Use [...] Description 03/02/2025 11:00 AM EDT Medication Management [facility] MEDICINE [address] [place] [address] Apurva Corona, PharmD [address] [place] [address] documented as of this encounter Procedures Procedure [...] on filedocumented in this encounter Care Teams Mechatronics Engineer Relationship Specialty Start Date End Date Makenna Trinidad MD PCP - General Family Medicine 03/24/19 05/12/22 Shawna Gamble MD [address] [place] [id number] PCP - General Family Medicine 05/13/22 [facility] 01/22/25 documented as of this encounter
--- OUTSIDE RECORDS SUMMARY | 2025-02-12 18:28 | XMS_ITS | Encounter Summary ---
Author Organization [employer] Address [address] [place] [address] [address] [place] [address] Care Team Providers Care Field Technical Assistant Name Role Phone Shawna Gamble MD Primary Care Provider [phone] Encounter Details Date Type Department Care Team ([facility] st Contact Info) Description 07/10/2022 Orders Only [facility] [address] [place], [place] [phone] Shawna Gamble MD [address] [place] [address] Hypomagnesemia (Primary Dx) Social History Tobacco Use [...] documented in this encounter Plan of Treatment Upcoming Encounters Date Type Department Care Team (Late st Contact Info) Description 03/02/2025 11:00 AM EDT Medication Management [facility] [address] [place] [address] Apurva Corona, PharmD [address] [place] [address] documented as of this encounter Procedures Procedure [...] EDT) Magnesium 1.6 1.6 - 2.6 mg/dL [facility] 12/17/2022 1:12 PM EDT 12/17/2022 1:20 PM EDT us Generic External Data Provider LAB BLOOD ORDERAB LES Final Result [facility] [address] [place] [phone] * (ABNORMAL) Basic Metabolic Panel (12/17/2022 1:12 PM EDT) Sodium 138 135 - 145 mmol/L [facility] Potassium 3.6 3.3 - 5.1 mmol/L [facility] Chloride 101 96 - 108 mmol/L [facility] Carbon Dioxide 24 22 - 29 mmol/L [facility] Anion Gap 17 12 - 20 [facility] Urea Nitrogen (BUN) 12 9 - 16 mg/dL [facility] Creatinine, Serum 0.75 0.5 - 1.4 mg/dL [facility] Estimated Glomerular Filt Rate >60 [facility] Comment:NOTE: For -Am erican individuals, multiply the result by 1.210.Chronic Kidney Disease: Estimated GFR < 60 mL/min/1.89t0Uuelun Kidney Disease: Estimated GFR < 15 mL/min/1.73m2 Glucose 118(H) 60 - 115 mg/dL [facility] Calcium 10.2 8.4 - 10.2 mg/dL [facility] 12/17/2022 1:12 PM EDT 12/17/2022 1:20 PM EDT [facility] External Provider LAB BLO OD ORDERABLES Final Result Performing Organization Address [facility] Co de Phone Number [facility] [address] [place] [phone] * Vitamin D, 25-Hydroxy, Total, Immunoassay (12/09/2022 12:14 PM EDT) Vitamin D 25-OH Total 57.1 >30 ng/mL [facility] Comment:Health Based Referen ce Values*< 20 ng/mL Ackjqncqw76-49 ng/mL Insufficient> 30 ng/mL Sufficient*Norma TREVINO. N [...] ORDERAB LES Final Result Performing Organization Address [facility] Co de Phone Number [facility] [address] [place] [phone] * (ABNORMAL) Magnesium (12/09/2022 12:14 PM EDT) Magnesium 1.5(L) 1.6 - 2.6 mg/dL [facility] 12/09/2022 12:1 4 PM EDT 12/09/2022 12:14 PM EDT Generic External Data Provider LAB BLOOD ORDERAB LES Final Result Performing Organization Address [facility] Co de Phone Number [facility] [address] [place] [phone] * Phosphate (As Phosphorus) (12/09/2022 12:14 PM EDT) Phosphorus 3.5 2.7 - 4.5 mg/dL [facility] 12/09/2022 12:1 4 PM EDT 12/09/2022 12:14 PM EDT Generic External Data Provider LAB BLOOD ORDERAB LES Final Result Performing Organization Address [facility] de Phone Number [facility] [address] [place] [phone] * (ABNORMAL) Basic Metabolic Panel (12/09/2022 12:14 PM EDT) Sodium 134(L) 135 - 145 mmol/L [facility] Potassium 4.6 3.3 - 5.1 mmol/L [facility] Chloride 99 96 - 108 mmol/L [facility] Carbon Dioxide 31(H) 22 - 29 mmol/L [facility] Anion Gap 9(L) 12 - 20 [facility] Urea Nitrogen (BUN) 15 9 - 16 mg/dL [facility] Creatinine, Serum 0.87 0.5 - 1.4 mg/dL [facility] Estimated Glomerular Filt Rate >60 [facility] Comment:NOTE: For -Am erican individuals, multiply the result by 1.210.Chronic Kidney Disease: Estimated GFR < 60 mL/min/1.90y3Yynhgl Kidney Disease: Estimated GFR < 15 mL/min/1.73m2 Glucose 273(H) 60 - 115 mg/dL [facility] Calcium 9.4 8.4 - 10.2 mg/dL [facility] 12/09/2022 12:1 4 PM EDT 12/09/2022 12:14 PM EDT [facility] External Provider LAB BLO OD ORDERABLES Final Result Performing Organization Address [facility] Phone Number [facility] [address] [place] [phone] * (ABNORMAL) Magnesium (11/30/2022 4:06 PM EDT) Magnesium 1.3(LL) 1.6 - 2.6 mg/dL [facility] Comment:Critical value for t est(s): MAGS Results called to and readback by: DR SALMON Person calling:[email or web address] Date: [id number]:[id number] 11/30/2022 4:06 PM EDT 11/30/2022 5:44 PM EDT [facility] External Provider LAB BLO OD ORDERABLES Final Result Performing Organization Address [facility] Phone Number [facility] [address] [place] [phone] * TSH (11/30/2022 4:06 PM EDT) Thyroid Stimulating Hormone 1.92 0.32 - 4.0 uIU/mL [facility] Comment:TSH 3rd Generation ( [employer]) 11/30/2022 4:06 PM EDT 11/30/2022 5:44 PM EDT [facility] External Provider LAB BLO OD ORDERABLES Final Result Performing Organization Address [facility] de Phone Number [facility] [address] [place] [phone] * (ABNORMAL) CBC auto differential (11/30/2022 4:06 PM EDT) White Blood Count 7.3 4.8 - 10.8 X10*3/uL [facility] Red Blood Count 3.62(L) 4.20 - 5.50 X10*6/uL [facility] Hemoglobin 10.4(L) 12.0 - 16.0 g/dl [facility] Hematocrit 32.0(L) 37.0 - 47.0 % [facility] Mean Corpuscular Volume 88.4 80.0 - 98.0 fL [facility] Mean Corpuscular Hemoglobin 28.7 27.0 - 33.0 pg [facility] Mean Corpuscular HGB Conc 32.5 31.0 - 35.0 g/dl [facility] Red Cell Distribution Width 19.0(H) 11.0 - 16.0 % [facility] Platelet Count 277 160 - 400 X10*3/uL [facility] Mean Platelet Volume 11.2 9.4 - 12.3 fL [facility] Neutrophils Percent Auto 49.2 45 - 73 % [facility] Imm Gran Pct Auto 0.3 0.0 - 0.4 % [facility] Lymphocytes Percent Auto 36.0 20 - 40 % [facility] Monocytes Percent Auto 11.4(H) 2 - 11 % [facility] Eosinophils Percent Auto 2.1 0 - 4 % [facility] Basophils Percent Auto 1.0 0 - 2 % [facility] NRBC Pct Auto 0.0 0.0 - 0.2 /100WBC [facility] Neutrophils Absolute Auto 3.6 2.0 - 8.3 x10*3/uL [facility] Imm Gran Abs Auto 0.02 0.00 - 0.03 X10*3/uL [facility] Lymphocytes Absolute Auto 2.6 1.2 - 4.9 X10*3/uL [facility] Monocytes Absolute Auto 0.8 0.1 - 1.2 X10*3/uL [facility] Eosinophils Absolute Auto 0.2 0.0 - 0.4 X10*3/uL [facility] Basophils Absolute Auto 0.1 0.0 - 0.2 X10*3/uL [facility] NRBC Abs Auto 0.000 0.0 - 0.012 X10*3/uL [facility] 11/30/2022 4:06 PM EDT 11/30/2022 5:44 PM EDT us [facility] External Provider LAB BLO OD ORDERABLES Final Result [facility] [address] [place] [phone] * T-SPOT??.TB (10/30/2022 9:18 AM EDT) [facility] T Spot TB Negative Negative [facility] Comment:A negative test resu lt [...] as aquantitative test. TS PANEL A 0 [facility] TS PANEL B 0 [facility] Negative Control Passed [facility] Positive Control Passed [facility] Comment:For additional infor gabriela, please refer [email or web address].Seebright/faq/UJK278(This link is being provided for informational/educational purposes only.)THIS TEST WAS PERFORMED AT:[employer] [id number] [place] [id number] ROBERT MD,PHD 10/30/2022 9:18 AM EDT 10/30/2022 9:18 AM EDT [facility] External Provider LAB BLO OD ORDERABLES Final Result Performing Organization Address [facility] Co de Phone Number [facility] [address] [place] [phone] * Hepatitis B surface antigen, EIA (10/30/2022 9:18 AM EDT) Hepatitis B Surface Ag Negative Negative [facility] 10/30/2022 9:18 AM EDT 10/30/2022 9:18 AM EDT [facility] External Provider LAB BLO OD ORDERABLES Final Result Performing Organization Address [facility] Co de Phone Number [facility] [address] [place] [phone] * HIV Ab/Ag (NH MINDY) (10/30/2022 9:18 AM EDT) HIV AB/AG Nonreactive Nonreactive [facility] Comment:HIV-1 p24 Ag and/or HIV-1/HIV-2 Ab not detected.A test result that is nonreactive does not exclude thepossibility of exposure to or infection with HIV-1 and/orHIV-2. Nonreactive results in this assay for individualswith prior exposure to HIV-1 and/or HIV-2 may be due toantigen and antibody levels that are below the limit ofdetection of this assay.[employer] HIV Ag/Ab Combo assay result andsupplemental assay results should be interpreted inconjunction with the patient's clinical presentation,history and other laboratory results. If the results areinconsistent with clinical evidence, additional testing issuggested to confirm the result. 10/30/2022 9:18 AM EDT 10/30/2022 9:18 AM EDT [facility] External Provider LAB BLO OD ORDERABLES Final Result Performing Organization Address [facility] Co de Phone Number [facility] [address] [place] [address] [phone] * Hepatitis C Ab (10/30/2022 9:18 AM EDT) Hepatitis C Antibody Nonreactive Nonreactive [facility] Comment:Antibodies to HCV no t detected; does not exclude early acuteHCV infection. 10/30/2022 9:18 AM EDT 10/30/2022 9:18 AM EDT [facility] External Provider LAB BLO OD ORDERABLES Final Result Performing Organization Address [facility] Co de Phone Number [facility] [address] [place] [address] [phone] * Hepatitis B Core Antibody, Total (10/30/2022 9:18 AM EDT) Hepatitis B Core Antibody Nonreactive Nonreactive [facility] 10/30/2022 9:18 AM EDT 10/30/2022 9:18 AM EDT [facility] External Provider LAB BLO OD ORDERABLES Final Result Performing Organization Address [facility] Co de Phone Number [facility] [address] [place] [address] [phone] * Hepatitis B Surface Antibody, Qualitative (10/30/2022 9:18 AM EDT) ~Hepatitis B Surface Antibody NONREACTIVE Nonreactive [facility] Comment:Nonreactive: < 8.00 mIU/mL 10/30/2022 9:18 AM EDT 10/30/2022 9:18 AM EDT [facility] External Provider LAB BLO OD ORDERABLES Final Result Performing Organization Address [facility] Co de Phone Number [facility] [address] [place] [address] [phone] * Vitamin B12/Folate, Serum Panel (10/30/2022 9:18 AM EDT) Vitamin B12 546 200 - 900 pg/mL [facility] Comment:NORMAL 200-900 PG/ML INDETERMINATE 160-199 PG/ML DEFICIENT < 160 PG/ML Folate 11.6 > or = 4.0 ng/mL [facility] Comment:Reference Values:> o r = 4.0 ng/mL< 4.0 ng/mL suggests folate deficiency Methotrexate, aminopterin and folinic acid(leucovorin) are chemotherapeutic agents whose molecularstructures are similar to folate; therefore, the Architectfolate assay cannot be used for patients using these drugs. 10/30/2022 9:18 AM EDT 10/30/2022 9:18 AM EDT [facility] External Provider LAB BLO OD ORDERABLES Final Result Performing Organization Address [facility] Co de Phone Number [facility] [address] [place] [address] [phone] * Prealbumin (10/30/2022 9:18 AM EDT) Prealbumin 26.0 20 - 40 mg/dL [facility] 10/30/2022 9:18 AM EDT 10/30/2022 9:18 AM EDT [facility] External Provider LAB BLO OD ORDERABLES Final Result Performing Organization Address [facility] Co de Phone Number [facility] [address] [place] [address] [phone] * (ABNORMAL) Comprehensive Metabolic Panel (10/30/2022 9:18 AM EDT) Sodium 137 135 - 145 mmol/L [facility] Potassium 3.8 3.3 - 5.1 mmol/L [facility] Chloride 102 96 - 108 mmol/L [facility] Carbon Dioxide 22 22 - 29 mmol/L [facility] Anion Gap 17 12 - 20 [facility] Urea Nitrogen (BUN) 10 9 - 16 mg/dL [facility] Creatinine, Serum 0.90 0.5 - 1.4 mg/dL [facility] Estimated Glomerular Filt Rate >60 [facility] Comment:NOTE: For -Am erican individuals, multiply the result by 1.210.Chronic Kidney Disease: Estimated GFR < 60 mL/min/1.47d5Pfgmhp Kidney Disease: Estimated GFR < 15 mL/min/1.73m2 Glucose 134(H) 60 - 115 mg/dL [facility] Calcium 10.0 8.4 - 10.2 mg/dL [facility] Bilirubin, Total 0.5 0.0 - 1.0 mg/dL [facility] Aspartate Amino Transferase 51(H) 5 - 31 U/L [facility] Alanine Aminotransferase 32(H) 0 - 31 U/L [facility] Total Protein 6.9 6.5 - 8.0 g/dL [facility] Albumin Level 3.8 3.5 - 5.0 g/dL [facility] Alkaline Phosphatase 51 39 - 117 U/L [facility] 10/30/2022 9:18 AM EDT 10/30/2022 9:18 AM EDT us [facility] External Provider LAB BLO OD ORDERABLES Final Result [facility] [address] [place], [place] [phone] * (ABNORMAL) Ferritin (08/31/2022 7:32 AM EDT) Ferritin 299(H) 10 - 250 ng/mL [facility] 08/31/2022 7:32 AM EDT 08/31/2022 7:32 AM EDT [facility] External Provider LAB BLO OD ORDERABLES Final Result Performing Organization Address [facility] Co de Phone Number [facility] [address] [place] [address] [phone] * B Type Natriuretic Peptide (BNP) (08/31/2022 7:32 AM EDT) Pathologist [facility] B Type Natriuretic Peptide 68 <100 pg/mL [facility] Comment:For those patients w ho are being treated with Natrecor(nesiritide, recombinant BNP), BNP testing should beperformed at least two hours post treatment in order toensure that only endogenous levels of BNP are detected. 08/31/2022 7:32 AM EDT 08/31/2022 7:32 AM EDT [facility] External Provider LAB BLO OD ORDERABLES Final Result Performing Organization Address [facility] Co de Phone Number [facility] [address] [place] [phone] * (ABNORMAL) Lipase (08/31/2022 7:32 AM EDT) Pathologist [facility] Lipase 154(H) 8 - 78 U/L [facility] 08/31/2022 7:32 AM EDT 08/31/2022 7:32 AM EDT [facility] External Provider LAB BLO OD ORDERABLES Final Result Performing Organization Address [facility] Co de Phone Number [facility] [address] [place] [phone] * Iron And Total Iron Binding Capacity (08/31/2022 7:32 AM EDT) Pathologist [facility] Iron 36 30 - 160 mcg/dL [facility] Total Iron Binding Capacity 229 228 - 428 mcg/dL [facility] Percent Iron Saturation 16 15 - 50 % [facility] Unsaturated Iron Binding 193 ug/dL [facility] 08/31/2022 7:32 AM EDT 08/31/2022 7:32 AM EDT [facility] External Provider LAB BLO OD ORDERABLES Final Result Performing Organization Address [facility] Co de Phone Number [facility] [address] [place] [phone] * (ABNORMAL) Basic Metabolic Panel (08/31/2022 7:32 AM EDT) Sodium 138 135 - 145 mmol/L [facility] Potassium 3.8 3.3 - 5.1 mmol/L [facility] Chloride 102 96 - 108 mmol/L [facility] Carbon Dioxide 20(L) 22 - 29 mmol/L [facility] Anion Gap 20 12 - 20 [facility] Urea Nitrogen (BUN) 6(L) 9 - 16 mg/dL [facility] Creatinine, Serum 0.85 0.5 - 1.4 mg/dL [facility] Estimated Glomerular Filt Rate >60 [facility] Comment:NOTE: For -Am erican individuals, multiply the result by 1.210.Chronic Kidney Disease: Estimated GFR < 60 mL/min/1.86n7Jslxia Kidney Disease: Estimated GFR < 15 mL/min/1.73m2 Glucose 137(H) 60 - 115 mg/dL [facility] Calcium 9.1 8.4 - 10.2 mg/dL [facility] 08/31/2022 7:32 AM EDT 08/31/2022 7:32 AM EDT [facility] External Provider LAB BLO OD ORDERABLES Final Result Performing Organization Address [facility]/ZIP Co de Phone Number [facility] [address] [place] [phone] * (ABNORMAL) Hepatic Function Panel (08/31/2022 7:32 AM EDT) Pathologist [facility] Bilirubin, Total 0.4 0.0 - 1.0 mg/dL [facility] Bilirubin, Direct 0.2 0.0 - 0.5 mg/dL [facility] Aspartate Amino Transferase 17 5 - 31 U/L [facility] Alanine Aminotransferase 8 0 - 31 U/L [facility] Total Protein 6.8 6.5 - 8.0 g/dL [facility] Albumin Level 3.8 3.5 - 5.0 g/dL [facility] Alkaline Phosphatase 120(H) 39 - 117 U/L [facility] 08/31/2022 7:32 AM EDT 08/31/2022 7:32 AM EDT [facility] External Provider LAB BLO OD ORDERABLES Final Result Performing Organization Address City/State/[facility] Co de Phone Number [facility] [address] [place] [address] [phone] * (ABNORMAL) CBC auto differential (08/31/2022 7:32 AM EDT) Pathologist [facility] White Blood Count 12.4(H) 4.8 - 10.8 X10*3/uL [facility] Red Blood Count 3.94(L) 4.20 - 5.50 X10*6/uL [facility] Hemoglobin 11.4(L) 12.0 - 16.0 g/dl [facility] Hematocrit 36.0(L) 37.0 - 47.0 % [facility] Mean Corpuscular Volume 91.4 80.0 - 98.0 fL [facility] Mean Corpuscular Hemoglobin 28.9 27.0 - 33.0 pg [facility] Mean Corpuscular HGB Conc 31.7 31.0 - 35.0 g/dl [facility] Red Cell Distribution Width 14.7 11.0 - 16.0 % [facility] Platelet Count 425(H) 160 - 400 X10*3/uL [facility] Mean Platelet Volume 10.3 9.4 - 12.3 fL [facility] Neutrophils Percent Auto 53.6 45 - 73 % [facility] Imm Gran Pct Auto 0.4 0.0 - 0.4 % [facility] Lymphocytes Percent Auto 30.2 20 - 40 % [facility] Monocytes Percent Auto 10.1 2 - 11 % [facility] Eosinophils Percent Auto 4.6(H) 0 - 4 % [facility] Basophils Percent Auto 1.1 0 - 2 % [facility] NRBC Pct Auto 0.0 0.0 - 0.2 /100WBC [facility] Neutrophils Absolute Auto 6.7 2.0 - 8.3 x10*3/uL [facility] Imm Gran Abs Auto 0.05(H) 0.00 - 0.03 X10*3/uL [facility] Lymphocytes Absolute Auto 3.8 1.2 - 4.9 X10*3/uL [facility] Monocytes Absolute Auto 1.3(H) 0.1 - 1.2 X10*3/uL [facility] Eosinophils Absolute Auto 0.6(H) 0.0 - 0.4 X10*3/uL [facility] Basophils Absolute Auto 0.1 0.0 - 0.2 X10*3/uL [facility] NRBC Abs Auto 0.000 0.0 - 0.012 X10*3/uL [facility] 08/31/2022 7:32 AM EDT 08/31/2022 7:32 AM EDT us [facility] External Provider LAB BLO OD ORDERABLES Final Result [facility] [address] [place] [phone] * Hemoglobin A1c (08/31/2022 7:32 AM EDT) Hemoglobin A1c 5.8 % [facility] Comment:Hemoglobin A1C Refer ence Range Adults: 4.8 - 6.0 % Non diabetic: < 6.0 % Goal: < 7.0 %Additional Action Suggested: > 8.0 %Note: Hemoglobin A1c results are invalid for patients with abnormal amounts of HbF. Blood transfusions may impact the HbA1c concentration in the patient sample. Estimated Average Glucose 120 mg/dL [facility] Comment:eAG = Estimated ave rage glucose which is %A1C expressed asaverage glucose, using the formula of the Z6I-EsxilzfDiftucv Glucose study (ADAG), Diabetes Care, Vol.31,#8,Dec. 2007 08/31/2022 7:32 AM EDT 08/31/2022 7:32 AM EDT [facility] External Provider LAB BLO OD ORDERABLES Final Result [facility] [address] [place] [address] [phone] * (ABNORMAL) Basic Metabolic Panel (08/10/2022 4:55 AM EDT) Sodium 137 135 - 145 mmol/L [facility] Potassium 4.7 3.3 - 5.1 mmol/L [facility] Chloride 105 96 - 108 mmol/L [facility] Carbon Dioxide 21(L) 22 - 29 mmol/L [facility] Anion Gap 16 12 - 20 [facility] Urea Nitrogen (BUN) 9 9 - 16 mg/dL [facility] Creatinine, Serum 0.79 0.5 - 1.4 mg/dL [facility] Estimated Glomerular Filt Rate >60 [facility] Comment:NOTE: For -Am erican individuals, multiply the result by 1.210.Chronic Kidney Disease: Estimated GFR < 60 mL/min/1.15p0Fqhkvu Kidney Disease: Estimated GFR < 15 mL/min/1.73m2 Glucose 95 60 - 115 mg/dL [facility] Calcium 8.7 8.4 - 10.2 mg/dL [facility] 08/10/2022 4:55 AM EDT 08/10/2022 6:02 AM EDT us [facility] External Provider LAB BLO OD ORDERABLES Final Result [facility] [address] [place] [phone] * (ABNORMAL) CBC auto differential (08/10/2022 4:55 AM EDT) White Blood Count 9.3 4.8 - 10.8 X10*3/uL [facility] Red Blood Count 3.24(L) 4.20 - 5.50 X10*6/uL [facility] Hemoglobin 9.7(L) 12.0 - 16.0 g/dl [facility] Hematocrit 30.5(L) 37.0 - 47.0 % [facility] Mean Corpuscular Volume 94.1 80.0 - 98.0 fL [facility] Mean Corpuscular Hemoglobin 29.9 27.0 - 33.0 pg [facility] Mean Corpuscular HGB Conc 31.8 31.0 - 35.0 g/dl [facility] Red Cell Distribution Width 15.2 11.0 - 16.0 % [facility] Platelet Count 647(H) 160 - 400 X10*3/uL [facility] Mean Platelet Volume 10.1 9.4 - 12.3 fL [facility] Neutrophils Percent Auto 54.9 45 - 73 % [facility] Imm Gran Pct Auto 0.5(H) 0.0 - 0.4 % [facility] Lymphocytes Percent Auto 26.3 20 - 40 % [facility] Monocytes Percent Auto 8.3 2 - 11 % [facility] Eosinophils Percent Auto 8.5(H) 0 - 4 % [facility] Basophils Percent Auto 1.5 0 - 2 % [facility] NRBC Pct Auto 0.0 0.0 - 0.2 /100WBC [facility] Neutrophils Absolute Auto 5.1 2.0 - 8.3 x10*3/uL [facility] Imm Gran Abs Auto 0.05(H) 0.00 - 0.03 X10*3/uL [facility] Lymphocytes Absolute Auto 2.4 1.2 - 4.9 X10*3/uL [facility] Monocytes Absolute Auto 0.8 0.1 - 1.2 X10*3/uL [facility] Eosinophils Absolute Auto 0.8(H) 0.0 - 0.4 X10*3/uL [facility] Basophils Absolute Auto 0.1 0.0 - 0.2 X10*3/uL [facility] NRBC Abs Auto 0.000 0.0 - 0.012 X10*3/uL [facility] 08/10/2022 4:55 AM EDT 08/10/2022 6:02 AM EDT us [facility] External Provider LAB BLO OD ORDERABLES Final Result [facility] [address] [place] [phone] * (ABNORMAL) Comprehensive Metabolic Panel (08/03/2022 5:00 AM EDT) Sodium 136 135 - 145 mmol/L [facility] Potassium 3.9 3.3 - 5.1 mmol/L [facility] Chloride 107 96 - 108 mmol/L [facility] Carbon Dioxide 20(L) 22 - 29 mmol/L [facility] Anion Gap 13 12 - 20 [facility] Urea Nitrogen (BUN) 11 9 - 16 mg/dL [facility] Creatinine, Serum 0.79 0.5 - 1.4 mg/dL [facility] Estimated Glomerular Filt Rate >60 [facility] Comment:NOTE: For -Am erican individuals, multiply the result by 1.210.Chronic Kidney Disease: Estimated GFR < 60 mL/min/[id number] Kidney Disease: Estimated GFR < 15 mL/min/1.73m2 Glucose 127(H) 60 - 115 mg/dL [facility] Calcium 8.2(L) 8.4 - 10.2 mg/dL [facility] Bilirubin, Total 0.3 0.0 - 1.0 mg/dL [facility] Aspartate Amino Transferase 16 5 - 31 U/L [facility] Alanine Aminotransferase 7 0 - 31 U/L [facility] Total Protein 4.8(L) 6.5 - 8.0 g/dL [facility] Albumin Level 2.5(L) 3.5 - 5.0 g/dL [facility] Alkaline Phosphatase 80 39 - 117 U/L [facility] 08/03/2022 5:00 AM EDT 08/03/2022 5:47 AM EDT us [facility] External Provider LAB BLO OD ORDERABLES Final Result [facility] [address], [place] [id number] [phone] * (ABNORMAL) CBC auto differential (08/03/2022 5:00 AM EDT) White Blood Count 8.8 4.8 - 10.8 X10*3/uL [facility] Red Blood Count 2.63(L) 4.20 - 5.50 X10*6/uL [facility] Hemoglobin 8.0(L) 12.0 - 16.0 g/dl [facility] Hematocrit 24.6(L) 37.0 - 47.0 % [facility] Mean Corpuscular Volume 93.5 80.0 - 98.0 fL [facility] Mean Corpuscular Hemoglobin 30.4 27.0 - 33.0 pg [facility] Mean Corpuscular HGB Conc 32.5 31.0 - 35.0 g/dl [facility] Red Cell Distribution Width 15.5 11.0 - 16.0 % [facility] Platelet Count 552(H) 160 - 400 X10*3/uL [facility] Mean Platelet Volume 10.3 9.4 - 12.3 fL [facility] Neutrophils Percent Auto 61.1 45 - 73 % [facility] Imm Gran Pct Auto 0.8(H) 0.0 - 0.4 % [facility] Lymphocytes Percent Auto 21.7 20 - 40 % [facility] Monocytes Percent Auto 10.2 2 - 11 % [facility] Eosinophils Percent Auto 4.9(H) 0 - 4 % [facility] Basophils Percent Auto 1.3 0 - 2 % [facility] NRBC Pct Auto 0.0 0.0 - 0.2 /100WBC [facility] Neutrophils Absolute Auto 5.4 2.0 - 8.3 x10*3/uL [facility] Imm Gran Abs Auto 0.07(H) 0.00 - 0.03 X10*3/uL [facility] Lymphocytes Absolute Auto 1.9 1.2 - 4.9 X10*3/uL [facility] Monocytes Absolute Auto 0.9 0.1 - 1.2 X10*3/uL [facility] Eosinophils Absolute Auto 0.4 0.0 - 0.4 X10*3/uL [facility] Basophils Absolute Auto 0.1 0.0 - 0.2 X10*3/uL [facility] NRBC Abs Auto 0.000 0.0 - 0.012 X10*3/uL [facility] 08/03/2022 5:00 AM EDT 08/03/2022 5:47 AM EDT [facility] External Provider LAB BLO OD ORDERABLES Final Result [facility] [address] [place] [phone] * (ABNORMAL) Magnesium (07/13/2022 8:29 AM EST) Magnesium 1.5(L) 1.6 - 2.6 mg/dL [facility] 07/13/2022 8:29 AM EST 07/13/2022 8:29 AM EST [facility] External Provider LAB BLO OD ORDERABLES Final Result [facility] [address] [place] [phone] documented in this encounter Visit Diagnoses Diagnosis Hypomagnesemia- Primary Disorders of magnesium metabolism documented in this encounter Care Teams Field Technical Assistant Relationship Specialty Start Date End Date Shawna Gamble MD [address] [place] [id number] PCP - General Family Medicine 05/13/22 [place] 01/22/25 documented as of this encounter
--- OUTSIDE RECORDS SUMMARY | 2025-02-12 18:28 | XMS_ITS | Clinical Summary ---
Author Organization [employer] Address [address] [place] [address] [address] [place] [address] Care Team Providers Care Food Beverage Server Name Role Phone Shawna Gamble MD Primary Care Provider [phone] Allergies Active Allergy Reactions Criticality Noted Date [...] BERNABE TABLETA CUATRO VECES AL MADIHA 90 10/23/19 22 Active metoprolol tartrate (Lopressor) 25 MG tablet Take 25 mg by mouth. Take with food. 05/13/20 22 Active triamcinolone (Kenalog) 0.1 % cream Apply topically 2 times daily. to affected area 10/23/19 22 Active insulin pen needle (BD Pen Needle Micro U/F) 32G x 6 mm misc BD Megha 2nd Gen Pen Needle 32 gauge x 5/32 USE FOR INSULIN INJECTIONS ONCE DAILY Active multivitamin with minerals (Cerovite) 18-400 mg-mcg tablet tablet one pill daily 10/19/19 21 Active senna (Senokot) 8.6 MG tablet Take 17.2 mg by mouth. 12/18/19 22 Active cholecalcifero l (Vitamin D-3) 250 MCG (53953 UT) capsule TAKE 1 CAPSULE BY MOUTH TWICE WEEKLY FOR 3 MONTHS Active clopidogrel (Plavix) 75 MG tablet Take 1 tablet by mouth 1 (one) time each day. 11/23/19 23 Active Santyl 250 UNIT/GM ointment APPLY TO FOOT ULCER IN THICK LAYER DAILY, DIRECTED 12/23/19 23 Active docusate sodium (Colace) 100 MG capsule 02/19/20 23 Active traZODone (Desyrel) 100 MG tablet Take 100 mg by mouth at bedtime. 12/23/19 23 Active Blood Glucose Monitoring Suppl (ONE TOUCH ULTRA 2) w/Device kit 1 each 2 times daily. 1 kit 03/17/20 23 Active OneTouch Delica Lancets 33G [facility] Use to test blood sugar 2 times daily 100 each 11 03/17/20 23 Active amitriptyline (Elavil) 50 MG tablet TAKE 1 TABLET AT BEDTIME FOR 1 WEEK THEN 2 TABLETS AT BEDTIME ONCE A DAY 30 DAY(S) 06/08/19 24 Active furosemide (Lasix) 20 MG tablet TAKE 1 TABLET BY MOUTH EVERY DAY FOR 30 DAYS 04/06/20 23 Active mirtazapine (Remeron) 45 MG tablet TAKE 1 TABLET BY MOUTH EVERY DAY AT BEDTIME FOR 30 DAYS 06/08/19 24 Active sertraline (Zoloft) 50 MG tablet TAKE 1 TABLET BY MOUTH EVERY DAY FOR 30 DAYS 05/29/19 24 Active ferrous gluconate (Fergon) 324 (37.5 Fe) MG tablet Take 1 tablet by mouth twice daily. 180 tablet 12/13/19 24 Active DULoxetine (Cymbalta) [address] capsule TAKE 1 CAPSULE (20 MG) BY MOUTH AT BEDTIME. DO NOT CRUSH OR CHEW. 90 capsule 3 03/06/20 24 2024 Active ferrous gluconate (Fergon) 324 (38 Fe) MG tablet TAKE 1 TABLET (324 MG TOTAL) BY MOUTH 1 (ONE) TIME EACH DAY WITH BREAKFAST 03/04/20 Active atorvastatin (Lipitor) 80 MG tabletIndicati ons:Atheroscle rosis of coronary artery of [place] heart, unspecified vessel or lesion type, unspecified whether angina present TAKE 1 TABLET (80 MG) BY MOUTH IN THE MORNING 90 tablet 3 04/07/20 24 Active Xarelto 2.5 MG tablet Take 1 tablet (2.5 mg) by mouth 2 times daily. 60 tablet 6 04/17/20 24 Active Aspirin Low Dose 81 MG EC tabletIndicati ons:Type 2 diabetes mellitus without complication, without long-term current use of insulin (HCC) TAKE 1 TABLET (81 MG) BY MOUTH IN THE MORNING 90 tablet 3 08/17/19 25 Active magnesium oxide (Mag-Ox) 400 MG tablet TAKE 1 TABLET (400 MG) BY MOUTH IN THE MORNING 90 tablet 1 08/18/19 25 Active FreeStyle lancetsIndicat ions:Type 2 diabetes mellitus without complication, without long-term current use of insulin (HCC) USE TO TEST 3 TIMES DAILY 100 each 11 08/24/19 25 Active hydrOXYzine HCl (Atarax) 25 MG tablet Take 1 tablet by mouth 2 times daily. 03/30/20 Active nitroglycerin (Nitrostat) 0.4 MG SL tablet TAKE 1 TAB SUBLINGUALLY EVERY 5 MINS FOR UP TO 3 TABLETS MAX EVERY 30 DAYS NEEDED, DIRECTED 03/30/20 Active empagliflozin (Jardiance) 10 MG Take 1 tablet (10 mg) by mouth Once per day. 90 tablet 1 10/24/19 25 2024 Active metFORMIN XR (Glucophage-XR ) 500 MG 24 hr tablet TAKE 2 TABLET BY ORAL ROUTE 2 TIMES EVERY DAY WITH THE EVENING MEAL 360 tablet 3 11/04/19 25 Active albuterol 108 (90 Base) MCG/ACT inhalerIndicat ions:Shortness of breath Inhale 2 puffs every 6 (six) hours if needed for wheezing. 18 g 11 11/04/19 25 2025 Active omeprazole (PriLOSEC) [address] capsule Take 1 capsule by mouth Once per day. 12/05/19 Active Linzess 145 MCG capsule take 1 capsule by mouth every day in the morning 12/29/19 25 Active memantine (Namenda) 5 MG tablet 01/04/20 25 Active lisinopril (Prinivil) 20 MG tablet Take 1 tablet (20 mg) by mouth Once per day. 30 tablet 11 01/09/20 25 2025 Active lidocaine (Lidoderm) 5 % patchIndicatio ns:Right hip pain,Pain of left hip Apply 1 patch topically Once per day. Remove & discard patch within 12 hours or as directed by MD. 30 patch 3 01/11/20 25 Active Magnesium 400 MG capsuleIndicat ions:Hypomagne semia Take 1 capsule by mouth daily 90 capsule 3 01/27/20 25 Active loratadine (Claritin) 10 MG tabletIndicati ons:Seasonal allergies TAKE 1 TABLET BY MOUTH once daily as needed 90 tablet 1 01/27/20 25 Active loratadine (Claritin) 10 MG tablet TAKE 1 TABLET BY MOUTH EVERY DAY 90 tablet 1 07/14/19 25 2024 Discontinued(R eorder (will not trigger notification to Pharmacy)) Active Problems Problem Noted Date Diagnosed Date Right hip pain 01/09/2025 Assessment & Plan (01/09/2025 3:41 PM EDT): Very difficult for patient to leave the house due to R hip arthritis and weakness Will order home PT to rebuild from deconditioning Esophageal reflux disease 12/11/2024 History of fragility fracture 10/23/2024 Assessment & Plan (10/23/2024 8:51 AM EDT): Pt is sure she has had a DEXA scan in the past, results are not in her chart, will repeat due to recent fragility fracture of tibia Anemia due to stage 3 chroni c kidney disease, unspecified whether stage 3a or 3b CKD (CMS/HCC) 10/18/2024 Chronic kidney disease, stage 2 (mild) Left medial tibial plateau fracture 11/09/2023 Overview [...] - home PT to start soon through [facility] Fractured dental buddhist with loss of materi al 10/20/2023 Drug-induced xerostomia 10/20/2023 Depression, recurrent 10/17/2023 Assessment & Plan (10/17/2023 5:39 PM EDT): On Elavil, Remeron, Duloxetine for pain, sleep, appetite Would not add additional agents at this time She denies SI/HI Dental caries 04/29/2023 Mixed conductive and sensorineural hearing loss of left ear 03/17/2023 Assessment & Plan (03/17/2023 9:06 AM EDT): Refer to audiology History of coronary artery bypass surgery 2022 Overview (03/17/2023): 07/2022 at [facility] Chest pain on breathing 12/04/2022 Assessment [...] Since 2021 Stopped Chlorthalidone Assessment & Plan (10/23/2024 8:49 AM EDT): Labs today returned at 1.0 Increase Mg to 500mg BID x 30 days Continue to hold chlorthalidone for Discontinue omeprazole, though that may take a bit longer to implement that recommendation Assessment & Plan (10/17/2023 5:36 PM EDT): Labs today returned at 1.5 Continue Mg 400mg daily Stop chlorthalidone for BP Recommended to stop omeprazole, though that may take a bit longer to implement that recommendation Assessment & Plan (03/17/2023 9:02 AM EDT): Lab returned critical low afternoon of this visit, resume Mg 400mg BID Other fatigue 08/07/2022 Assessment & Plan (10/23/2024 8:51 AM EDT): This is likely multifactorial, including low Mg, cardiac disease, deconditioning after tibial fracture Continue eating whole foods Exercise bike ordered so she can do seated exercise Other lack of coordination 08/04/202203/15 Vitamin D [...] elsewhere classified, unspecified upper arm 07/31/2022 03/15/2023 Excessive attrition of teeth, limited to enamel 06/18/2022 Dental plaque 06/18/2022 Missing teeth, acquired 06/18/2022 Urge incontinence of urine 06/08/2022 Assessment & Plan (06/08/2022 6:12 AM EST): Chux pads for nighttime incontinence Gastritis 04/27/2018 Shoulder pain 04/27/2018 Assessment & Plan (06/08/2022 6:11 AM EST): Lidocaine patches followup in 2-3 months to consider injection Essential hypertension 01/31/2018 Assessment & Plan (01/09/2025 3:39 PM EDT): Decrease 40mg to 20mg of Lisinopril due to hypotension in clinic, weakness and dizziness Assessment & Plan (10/17/2023 5:37 PM EDT): [...] diabetic neuropathy, unspecified 03/10/2012 Assessment & Plan (01/09/2025 3:40 PM EDT): Continue Metformin 500mg XR daily Continue Jardiance 10mg for microalbuminuria A1C 8.4 Order replaced for diabetic shoe evaluation Consulted podiatry for additional recommendation regarding DM2 neuropathy and footwear Assessment & Plan (10/23/2024 8:47 AM EDT): Continue Metformin 500mg XR daily Add Jardiance 10mg for microalbuminuria A1C 9.4 Order replaced for diabetic shoe evaluation Consulted podiatry for additional recommendation regarding DM2 neuropathy and footwear Assessment & Plan (07/16/2023 6:48 AM EST): [...] 80mg daily Check lipids in 3 months S/P laparoscopic cholecystectomy 01/22/2012 Resolved Problems Problem Noted Date Diagnosed Date Resolved Date Protein-calorie malnutrition , unspecified severity 07/16/2023 10/23/2024 Foot infection 10/30/2022 10/23/2024 Overview (03/15/2023): Last Assessment & Plan: Refer to wound clinic, non-healing diabetic ulcer Assessment & Plan (12/01/2022 9:07 PM EDT): Refer to wound clinic, non-healing diabetic ulcer Assessment & Plan (10/30/2022 2:51 PM EDT): Ddx: cellulitis Treating with clindamycin 300 mg q6h for 10 days. Patient has appointment with me next Wednesday. If unable to treat patient may need IV antibiotics. Encounter for surgical after care following surgery on the circulatory system 07/31/2022 03/15/20232024 Acute sinusitis 04/27/2018 10/23/2024 Type 2 diabetes mellitus without complication 03/10/20 12 10/23/2024 Assessment & Plan (10/17/2023 5:36 PM EDT): [...] Encounters Date Type Department Care Team Description 02/12/2025 Orders Only GENERIC EXTERNAL DATA DEPARTMENT Provider, Generic External Data 01/23/2025 Telephone [facility] [address] [place] [address] Shawna Gamble MD Durable Medical Equipment (DME Request: Bed Assist Bars) 01/23/2025 Telephone [facility] [address] [place] [address] Shawna Gamble MD verbal orders needed 01/22/2025 Refill [facility] [address] [place] [address] Shawna Gamble MD Hypomagnesemia; Seasonal allergies 01/17/[address] [address] Shawna Gamble MD Prior Authorization 01/10/[address] [address] An Brown, [facility] REFERRAL 01/10/[address] [phone] Shawna Gamble MD 01/08/2025 3:30 PM EDT Office Visit [address] [address] Shawna Gamble MD Right hip pain (Primary Dx); Type 2 diabetes mellitus with diabetic neuropathy, without long-term current use of insulin ([facility]); Essential hypertension; Orthostatic hypotension; Pain of left hip 01/08/2025 Travel 01/05/[address] [address] Shawna Gamble MD chart prep 01/01/2025 Orders Only GENERIC EXTERNAL DATA DEPARTMENT Provider, Generic External Data 01/01/[address] [address] Shawna Gamble MD Nurse Triage 12/28/2024 Orders Only GENERIC EXTERNAL DATA DEPARTMENT Provider, Generic External Data 12/11/[address] [address] Shawna Gamble MD No Show 12/07/[address] [address] Shawna Gamble MD 12/01/2024 Patient Outreach [address] [address] Shawna Gamble MD Care Coordination (CHW outreach for SDOH housing search-LVM ) 12/01/2024 Patient Outreach [address] [address] Shawna Gamble MD Pre-visit Planning ((SDOH screening positive tobacco screening negative) ) from Last 3 Months Immunizations Immunization Administration [...] Date Recorded Patient Health Questionnaire-9 Score 6 10/18/2024 Patient Health Questionnaire-9 Score 6 10/18/2024 Last PHQ-9: Questionnaire Data Not on file 0 10/18/2024 Housing Stability Answer Date Recorded What is your housing situation today? I have amador telles 12/01/[address] you li ve. Do you have problems with any of the following? None of the above 12/01/2024 Food Insecurity Answer Date Recorded Within the past 12 months, y ou worried that your food would run out before you got money to buy more: Never True 12/01/2024 Within the past 12 months,th e food you bought just didn't last and you didn't have enough money to get more: Never True Transportation Answer Date Recorded In the past 12 months, has l ack of transportation kept you from medical appts, meetings, work or from getting things needed for daily living? No 12/01/2024 Utilities Answer Date Recorded In the past 12 months, has t he electric, gas, oil or water company threatened to shut off services in your home? Yes 12/01/2024 Depression Answer Date Recorded Patient Health Questionnaire-2 Score 3 10/18/2024 Internet Access Answer Date Recorded Internet Access Q1 Yes 12/01/2024 Internet Access Q2 Not on file 12/01/2024 Comments Unknown Sex and Gender Information Value Date Recorded Sex Assigned at Female 03/16/2022 10:14 AM EDT Legal Sex Female 10:14 AM EDT Gender Identity Female 03/16/2022 10:14 AM EDT Sexual Orientation Straight 03/16/2022 10 :14 AM EDT Last Filed Vital Signs Vital Sign Reading Time Taken Comments Blood Pressure 90/62 01/08/2025 3:47 PM EDT Pulse 78 01/08/2025 3:47 PM EDT Temperature 36.1 C (96.9 F) 01/08/2025 3:47 PM EDT Respiratory Rate 16 01/08/2025 3:47 PM EDT Oxygen Saturation 98% 11/03/2024 11: 42 AM EDT Inhaled Oxygen Concentration - - Weight 61.1 kg (134 lb 12.8 oz) 01/08/2025 3:47 PM EDT Height 160 cm (5' 3 ) 01/08/2025 3:47 PM EDT Body Mass Index 23.88 01/08/2025 3:47 PM EDT Plan of Treatment Upcoming Encounters Date Type Department Care Team (Late st Contact Info) Description 03/02/2025 11:00 AM EDT Medication Management [facility] [address] [place] [address] Apurva Corona, PharmD [address] [place] [address] Health Maintenance Due Date Last Done Comments CT Colonography 1955 Dental X-Ray: Full Mouth 1955 FIT DNA/Cologuard 1955 FIT 1955 FOBT 1955 Sigmoidoscopy 1955 Alcohol/Substance Use Screening 1965 RSV Patients and Patients Aged 60 years or older (1 - Risk 60-74 years 1-dose series) 2013 Hepatitis B Vaccines (2 of 3 - 19+ 3-dose series) 05/25/2018 04/27/2018 Zoster Vaccines (2 of 3) 03/19/2020 01/23/2020, 07/16 Dental Oral Exam 12/17/2022 06/18/2022 Dental Prophylaxis 12/17/2022 06/18/2022 Diabetes: Foot Exam 10/31/2023 10/30/2022, Dental X-Ray: Bitewings 03/03/2024 03/02/2023, 06/18 COVID-19 Vaccine ( season) 2025 03/11/2021, 02/04/2021 Influenza Vaccine (#1) 2025 , 03/04/2022, 03/04/2022, Additional history exists Diabetes: Hemoglobin A1C 04/10/2025 025, 10/18/2024, 12/08/2023, Additional history exists Eye Exam 06/21/2025 06/21/2023 Mammogram 06/30/2025 06/30/2024, 09/2023, 03/13/2022, Additional history exists Depression Screening 10/18/2025 10/18/2024, 10/19/19 Diabetes: Urine Protein Screening 10/20/2025 10/20/2024, 07/21/2023, 03/15/2023, Additional history exists Lipid Panel 10/20/2025 10/20/2024, 02/16, 03/13/2022, Additional history exists SDOH Screening 12/01/2025 12/01/2024 Tobacco Screening 01/08/2026 01/08/2025 DTaP/Tdap/Td Vaccines (2 - Td or Tdap) [...] Procedure Name Priority Date/Time Associated Diagnosis Comments CT CERVICAL SPINE WO CONTRAST Routine 02/12/2025 6:[address] HEAD WO CONTRAST Routine 02/12/2025 6 :09 PM EDT HIGH SENSITIVITY TROPONIN I Routine 02/12/2025 5:02 PM EDT MAGNESIUM Routine 02/12/2025 5:02 PM EDT COMPREHENSIVE METABOLIC PANEL Routine 02/12/2025 5:02 PM EDT PROTHROMBIN TIME-INR Routine 02/12/2025 5:02 PM EDT CBC WITH AUTO DIFFERENTIAL Routine 02/12/2025 5:02 PM EDT XR HIP 2 OR 3 VIEWS RIGHT Routine 01/08/2025 5:00 PM EDT Right hip pain POCT GLUCOSE Routine 01/08/2025 3:48 PM EDT Type 2 diabetes mellitus with diabetic neuropathy, without long-term current use of insulin ([facility]) POCT GLYCATED HEMOGLOBIN, TOTAL Routine 01/08/2025 3:48 PM EDT Type 2 diabetes mellitus with diabetic neuropathy, without long-term current use of insulin ([facility]) CT HEAD WO CONTRAST Routine 01/02/2025 1 2:[address] CERVICAL SPINE WO CONTRAST Routine 01/02/2025 12:05 AM EDT DRUG MONITOR, PANEL 1, SCREEN, URINE Routine 01/01/2025 10:04 PM EDT URINALYSIS, COMPLETE, WITH REFLEX TO CULTURE Routine 01/01/2025 10:04 PM EDT VITAMIN D,25-OH,TOTAL,IA Routine 12/28/2024 3:06 PM EDT FERRITIN Routine 12/28/2024 3:06 PM EDT C-REACTIVE PROTEIN Routine 12/28/2024 3: 06 PM EDT IRON AND TOTAL IRON BINDING CAPACITY Routine 12/28/2024 3:06 PM EDT CBC WITH AUTO DIFFERENTIAL Routine 12/28/2024 3:06 PM EDT MAGNESIUM Routine 12/28/2024 3:06 PM EDT Hypomagnesemia LIPID PANEL, STANDARD Routine 10/20/2024 10:23 AM EDT Type 2 diabetes mellitus with diabetic neuropathy, without long-term current use of insulin ([facility]) ALBUMIN, RANDOM URINE W/CREATININE Routine 10/20/2024 10:18 AM EDT Type 2 diabetes mellitus with diabetic neuropathy, without long-term current use of insulin ([facility]) BI MAMMOGRAM SCREENING TOMOSYNTHESIS BILATERAL Routine 06/30/2024 2:15 PM EST BITEWING - SINGLE RADIOGRAPHIC IMAGE Routine 03/02/2023 [...] Recently Relevant to Health Maintenance Results * CT Cervical Spine w/o Contrast (02/12/2025 6:19 PM EDT) Only the most recent of2 resultswithin the time period is included. Anatomical Region Laterality Modality Spine, C-spine Computed Tomogra phy 02/12/2025 6:19 PM EDT Narrative 02/12/2025 6:20 PM EDT [place] [address] CT Scan Report Signed Patient: Sonia Marcano MR#: [id number] 5 : 1955 Acct:[id number] Age/Sex: 69 / F ADM Date: 02/12/25 Loc: HO.ED Attending Dr: Ordering Physician: Kady Sibley Date of Service: 02/12/25 Procedure(s): CT cervical spine wo IV con Accession Number(s): [id number] cc: Kady Sibley; Shawna Gamble Report Number: [id number]: Total DLP = 0.00 mGy-cm Reason for Exam: fall, head strike, on AC CLINICAL HISTORY: fall, head strike, on AC CT cervical spine without contrast Comparison: CT/SR - CT CERVICAL SPINE WO IV CON - 01/01/25 23:04 EDT Findings: There is straightening of the normal cervical lordosis. No fracture or acute malalignment. Multilevel degenerative changes with disc space narrowing throughout the cervical spine. The facet joints are normally imbricated. No prevertebral soft tissue edema. Lung apicies demonstrate no acute process. Impression: Multilevel degenerative changes without evidence of acute fracture or acute malalignment. This document has been electronically signed by: Sonny Han MD on 02/12/2025 18:19:06 Dictated By: Sonny Han MD Signed By: <Electronically signed by Sonny Han MD in OV> 02/12/251818 DD/ 18 TD/TT: 02/12/251818 Chemist Enzymes: Procedure Note Donotkenrickter, Image - 02/12/[address] [place] [address] [address] Scan Report Signed Patient: Sonia MarcanoMR#: [id number] 5 : 1955cct:[id number] Age/Sex: 69 / FADM Date: 02/12/25 Loc: .ED Attending Dr: Ordering Physician: Kady Sibley Date of Service: 02/12/25 Procedure(s): CT cervical spine wo IV con Accession Number(s): [id number] cc: Kady Sibley; Shawna Gamble Report Number: [id number]: Total DLP = 0.00 mGy-cm Reason for Exam: fall, head strike, on AC CLINICAL HISTORY: fall, head strike, on AC CT cervical spine without contrast Comparison: CT/SR - CT CERVICAL SPINE WO IV CON - 01/01/25 23:04 EDT Findings: There is straightening of the normal cervical lordosis. No fracture or acute malalignment. Multilevel degenerative changes with disc space narrowing throughout the cervical spine. The facet joints are normally imbricated. No prevertebral soft tissue edema. Lung apicies demonstrate no acute process. Impression: Multilevel degenerative changes without evidence of acute fracture or acute malalignment. This document has been electronically signed by: Sonny Han MD on 02/12/2025 18:19:06 Dictated By: Sonny Han MD Signed By: <Electronically signed by Sonny Han MD in OV> 02/12/251818 DD/ 18 TD/TT: 02/12/251818 Chemist Enzymes: [facility] External Provider IMG CT PROCEDURES Final Result * CT Head w/o Contrast (02/12/2025 6:09 PM EDT) Only the most recent of2 resultswithin the time period is included. Anatomical Region Laterality Modality Head, Neck Computed Tomogra phy 02/12/2025 6:09 PM EDT Narrative 02/12/2025 6:10 PM EDT [address] [address] [address] Scan Report Signed Patient: Sonia Marcano MR#: [id number] 5 : 1955 Acct:[id number] Age/Sex: 69 / F ADM Date: 02/12/25 Loc: HO.ED Attending Dr: Ordering Physician: Kady Sibley Date of Service: 02/12/25 Procedure(s): CT head/brain wo IV con Accession Number(s): [id number] cc: Kady Sibley; Shawna Gamble Report Number: [id number]: Total DLP = 920.00 mGy-cm Reason for Exam: fall, head strike, on AC CLINICAL HISTORY: fall, head strike, on AC CT head without contrast Comparison: CT/REG/SR - CT HEAD/BRAIN WO IV CON - 01/01/25 23:04 EDT Findings: No evidence of acute territorial infarct. There is patchy low density in the periventricular and subcortical white matter. Diffuse volume loss is noted. No hydrocephalus. No hemorrhage, mass effect, mass lesion or midline shift. No abnormal extra-axial fluid. No calvarial fracture. Paranasal sinuses and mastoid air cells are clear. Impression: No acute intracranial process. Chronic changes as detailed. This document has been electronically signed by: Sonny Han MD on 02/12/2025 18:09:07 Dictated By: Sonny Han MD Signed By: <Electronically signed by Sonny Han MD in OV> 02/12/251809 DD/ 08 TD/TT: 02/12/251808 Chemist Enzymes: Procedure Note Donotuseinterpreter, Image - 02/12/[address] [address] [address] Scan Report Signed Patient: Sonia MarcanoMR#: [id number] 5 : 4Acct:[id number] Age/Sex: 69 / FADM Date: 02/12/25 Loc: HO.ED Attending Dr: Ordering Physician: Kady Sibley Date of Service: 02/12/25 Procedure(s): CT head/brain wo IV con Accession Number(s): [id number] cc: Kady Sibley; TyeShawna Report Number: [id number]: Total DLP = 920.00 mGy-cm Reason for Exam: fall, head strike, on AC CLINICAL HISTORY: fall, head strike, on AC CT head without contrast Comparison: CT/REG/SR - CT HEAD/BRAIN WO IV CON - 01/01/25 23:04 EDT Findings: No evidence of acute territorial infarct. There is patchy low density in the periventricular and subcortical white matter. Diffuse volume loss is noted. No hydrocephalus. No hemorrhage, mass effect, mass lesion or midline shift. No abnormal extra-axial fluid. No calvarial fracture. Paranasal sinuses and mastoid air cells are clear. Impression: No acute intracranial process. Chronic changes as detailed. This document has been electronically signed by: Sonny Han MD on 02/12/2025 18:09:07 Dictated By: Sonny Han MD Signed By: <Electronically signed by Sonny Han MD in OV> 02/12/251809 DD/ 180 TD/TT: 02/12/251808 Chemist Enzymes: [facility] External Provider IMG CT PROCEDURES Final Result * High Sensitivity Troponin I (02/12/2025 5:02 PM EDT) TROPONIN I HIGH SENSITIVITY <2.7 <3.5 - 17.0 ng/L [facility] Comment:The Goins high sens itivity Troponin-I results should beused in conjunction with other diagnostic information suchas ECG, clinical observations and information, and patientsymptoms to aid in the diagnosis of NV. 02/12/2025 5:02 PM EDT 02/12/2025 5:09 PM EDT us Generic External Data Provider LAB BLOOD ORDERAB LES Final Result [facility] [address] [place] [address] [phone] * (ABNORMAL) CBC auto differential (02/12/2025 5:02 PM EDT) Only the most recent of2 resultswithin the time period is included. White Blood Count 11.3(H) 4.8 - 10.8 X10*3/uL [facility] Red Blood Count 3.82(L) 4.20 - 5.50 X10*6/uL [facility] Hemoglobin 11.3(L) 12.0 - 16.0 g/dl [facility] Hematocrit 34.1(L) 37.0 - 47.0 % [facility] Mean Corpuscular Volume 89.3 80.0 - 98.0 fL [facility] Mean Corpuscular Hemoglobin 29.6 27.0 - 33.0 pg [facility] Mean Corpuscular HGB Conc 33.1 31.0 - 35.0 g/dl [facility] Red Cell Distribution Width 14.9 11.0 - 16.0 % [facility] Platelet Count 283 160 - 400 X10*3/uL [facility] Mean Platelet Volume 11.9 9.4 - 12.3 fL [facility] Neutrophils Percent Auto 65.7 45 - 73 % [facility] Imm Gran Pct Auto 0.5(H) 0.0 - 0.4 % [facility] Lymphocytes Percent Auto 20.8 20 - 40 % [facility] Monocytes Percent Auto 8.2 2 - 11 % [facility] Eosinophils Percent Auto 3.9 0 - 4 % [facility] Basophils Percent Auto 0.9 0 - 2 % [facility] NRBC Pct Auto 0.0 0.0 - 0.2 /100WBC [facility] Neutrophils Absolute Auto 7.4 2.0 - 8.3 x10*3/uL [facility] Imm Gran Abs Auto 0.06(H) 0.00 - 0.03 X10*3/uL [facility] Lymphocytes Absolute Auto 2.4 1.2 - 4.9 X10*3/uL [facility] Monocytes Absolute Auto 0.9 0.1 - 1.2 X10*3/uL [facility] Eosinophils Absolute Auto 0.4 0.0 - 0.4 X10*3/uL [facility] Basophils Absolute Auto 0.1 0.0 - 0.2 X10*3/uL [facility] NRBC Abs Auto 0.000 0.0 - 0.012 X10*3/uL [facility] 02/12/2025 5:02 PM EDT 02/12/2025 5:09 PM EDT us Generic External Data Provider LAB BLOOD ORDERAB LES Final Result Performing Organization Address [facility] Co de Phone Number [facility] [address] [place] [phone] * Prothrombin Time-INR (02/12/2025 5:02 PM EDT) Prothrombin Time 11.8 10.9 - 12.4 SEC [facility] INTERNATIONAL NORM RATIO 1.0 0.9 - 1.1 [facility] Comment:INTERNATIONAL NORMAL IZED RATIO (INR) REFERENCE RANGES Reference RangeFor patients not on anticoagulant therapy: 0.9 - 1.1INR ranges for oral anticoagulanttherapy:For prevention and treatment of venous thrombosis and pulmonary embolism: 2.0 - 3.0For acute myocardial infarction with aspirin therapy: 2.0 - 3.0For acute myocardial infarction without aspirin therapy: 3.0 - 4.0For patients with mechanical prosthetic heart valves: 2.5 - 3.5 02/12/2025 5:02 PM EDT 02/12/2025 5:09 PM EDT us Generic External Data Provider LAB BLOOD ORDERAB LES Final Result Performing Organization Address [facility] Co de Phone Number [facility] [address] [place] [phone] * (ABNORMAL) Magnesium (02/12/2025 5:02 PM EDT) Only the most recent of2 resultswithin the time period is included. Magnesium 1.5(L) 1.6 - 2.6 mg/dL [facility] 02/12/2025 5:02 PM EDT 02/12/2025 5:09 PM EDT us Generic External Data Provider LAB BLOOD ORDERAB LES Final Result [facility] [address] [place] [phone] [phone] * (ABNORMAL) Comprehensive Metabolic Panel (02/12/2025 5:02 PM EDT) Sodium 139 135 - 145 mmol/L [facility] Potassium 4.1 3.3 - 5.1 mmol/L [facility] Chloride 101 96 - 108 mmol/L [facility] Carbon Dioxide 25 22 - 29 mmol/L [facility] Anion Gap 17 12 - 20 [facility] Urea Nitrogen (BUN) 18(H) 9 - 16 mg/dL [facility] Creatinine, Serum 1.12 0.5 - 1.4 mg/dL [facility] Creatinine Clr Calc Pharmacy 39.8 [facility] Comment:Provided height and weight: 162.56 cm,61.5 kg.eGFR (calculated from the MDRD study equation) and eCrCl(calculated from the Cockcroft-Gault equation) are based ondifferent parameters and may not yield comparable results.If eCrCl result is absurd, please check patient'sheight/weight. Estimated Glomerular Filt Rate 48 [facility] Comment:Chronic Kidney Disea se: Estimated GFR < 60 mL/min/1.90c2Daqyap Kidney Disease: Estimated GFR < 15 mL/min/1.73m2 Glucose 180(H) 60 - 115 mg/dL [facility] Calcium 9.9 8.4 - 10.2 mg/dL [facility] Bilirubin, Total 0.2 0.0 - 1.0 mg/dL [facility] Aspartate Amino Transferase 49(H) 5 - 31 U/L [facility] Alanine Aminotransferase 36(H) 0 - 31 U/L [facility] Total Protein 7.5 6.5 - 8.0 g/dL [facility] Albumin Level 4.6 3.5 - 5.0 g/dL [facility] Alkaline Phosphatase 136(H) 39 - 117 U/L [facility] 02/12/2025 5:02 PM EDT 02/12/2025 5:09 PM EDT us Generic External Data Provider LAB BLOOD ORDERAB LES Final Result Performing Organization Address City/State/[facility] Co de Phone Number [facility] [address] [place] [phone] * XR Hip 2 or 3 Views Right (01/08/2025 5:00 PM EDT) Anatomical Region Laterality Modality Lower Extremities, Hip Right Radiograp hic Imaging 01/08/2025 5:00 PM EDT Narrative 01/08/2025 5:27 PM EDT [address] [address] XRay Report Signed Patient: Sonia Marcano MR#: [id number] 5 : 1955 Acct:[id number] Age/Sex: 69 / F ADM Date: 01/08/25 Loc: ALYSHA Attending Dr: Shawna Gamble MD Ordering Physician: Shawna Gamble Date of Service: 01/08/25 Procedure(s): XR hip RT min 2V Accession Number(s): [id number] cc: Shawna Gamble EXAMINATION: XR HIP, RIGHT CLINICAL INFORMATION: r hip pain and bruise, fall one week ago COMPARISON: October 28, 2024 TECHNIQUE: Two views of the right hip. FINDINGS: There are small marginal sites along the acetabular roof and femoral head. There is mild to moderate axial joint space narrowing. No fracture or deformity is identified. Moderate to severe atherosclerotic calcifications are present in the femoral arteries. Linear pyrophosphate deposition is evident in the symphysis pubis joint. 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 Electronically signed by: Pj Osullivan MD 01/08/2025 05:24 PM EDT RP Dictated By: Pj Osullivan MD Signed By: <Electronically signed by Pj Osullivan MD in OV> 01/08/25 1724 DD/ 1700 TD/TT: 01/08/25 1715 Chemist Enzymes: Procedure Note Donotuseinterpreter, Image - 01/08/2025 [place] [address] XRay Report Signed Patient: Sonia MarcanoMR#: [id number] 5 : 4Acct:[id number] Age/Sex: 69 / FADM Date: 01/08/25 Loc: HO.ROLA Attending Dr: Shawna Gamble MD Ordering Physician: Shawna Gamble Date of Service: 01/08/25 Procedure(s): XR hip RT min 2V Accession Number(s): [id number] cc: Shawna Gamble EXAMINATION: XR HIP, RIGHT CLINICAL INFORMATION: r hip pain and bruise, fall one week ago COMPARISON: October 28, 2024 TECHNIQUE: Two views of the right hip. FINDINGS: There are small marginal sites along the acetabular roof and femoral head. There is mild to moderate axial joint space narrowing. No fracture or deformity is identified. Moderate to severe atherosclerotic calcifications are present in the femoral arteries. Linear pyrophosphate deposition is evident in the symphysis pubis joint. 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 Electronically signed by: Pj Osullivan MD 01/08/2025 05:24 PM EDT RP Dictated By: Pj Osullivan MD Signed By: <Electronically signed by Pj Osullivan MD in OV> 01/08/25 1724 DD/ 1700 TD/TT: 01/08/25 1715 Chemist Enzymes: Shawna Gamble MD IMG XR PROCEDURES Final Result * (ABNORMAL) POCT HGB A1C (01/08/2025 3:48 PM EDT) Hemoglobin A1C 8.3(A) 4.0 - 5.7 % Blood 01/08/2025 3:48 PM EDT Shawna Gamble MD POINT OF CARE TEST ENTER/EDIT ORDERABLES Final Result * (ABNORMAL) POCT Glucose (01/08/2025 3:48 PM EDT) Glucose Blood, POC 235(A) 60 - 200 mg/dL Blood Capillary blood specimen / Unknown 01/08/2025 3:48 PM EDT Shawna Gamble MD POINT OF CARE TEST ENTER/EDIT ORDERABLES Final Result * (ABNORMAL) Urinalysis, Complete, with Reflex to Culture (01/01/2025 10:04 PM EDT) Color Urine Yellow [facility] Appearance Urine Clear [facility] PH 6.5 5.0 - 9.0 [facility] Glucose Urine UA >=1000(A) Negative mg/dL [facility] Urine Blood Negative Negative [facility] Specific [place] - Urine 1.010 1.005 - 1.025 [facility] Urine Protein Negative Neg-Trace mg/dL [facility] Urine Ketones Negative Negative mg/dL [facility] Nitrite Urine Negative Negative [facility] Leukocyte Esterase Urine Negative Negative [facility] RBC Urine 0-2 0 - 2 /HPF [facility] Urine WBC 0-5 0 - 5 /HPF [facility] Urine Squamous Epithelial Cell 0-2 0 - 2 /HPF [facility] Urine Bacteria None Seen None Seen [facility] Hyaline Casts, Urine 0-2 0 - 2 /LPF [facility] 01/01/2025 10:0 4 PM EDT 01/01/2025 10:08 PM EDT Narrative [facility] - 01/01/2025 10:27 PM EDT Urine, Clean Catch us Generic External Data Provider LAB URINE ORDERAB LES Final Result [facility] [address] [place] [phone] * Drug Monitoring, Panel 1, Screen, Urine (01/01/2025 10:04 PM EDT) Opiate Screen Urine Not Detected Not Detect [facility] Comment:Opiate cut-off is 30 0 ng/mL.Positive results are unconfirmed and should not be used fornon-medical purposes. Barbiturates, Urine Not Detected Not Detect [facility] Comment:Barbiturate cut-off is 200 ng/mL.Positive results are unconfirmed and should not be used fornon-medical purposes. Phencyclidine Screen Urine Not Detected Not Detect [facility] Comment:Phencyclidine cut-of f is 25 ng/mL.Positive results are unconfirmed and should not be used fornon-medical purposes. Amphetamine Screen Urine Not Detected Not Detect [facility] Comment:Amphetamine cut-off is 1000 ng/mL.Positive results are unconfirmed and should not be used fornon-medical purposes. Benzodiazepines Screen Urine Not Detected Not Detect [facility] Comment:Benzodiazepine cut-o ff is 200 ng/mL.Positive results are unconfirmed and should not be used fornon-medical purposes. Cocaine Screen Urine Not Detected Not Detect [facility] Comment:Cocaine cut-off is 3 00 ng/mL.Positive results are unconfirmed and should not be used fornon-medical purposes. Cannabinoid Screen Urine Not Detected Not Detect [facility] Comment:Cannabinoid cut-off is 50 ng/mL.Positive results are unconfirmed and should not be used fornon-medical purposes. Methadone Screen, Urine Not Detected Not Detect ng/mL [facility] Comment:Methadone cut-off is 300 ng/mL.Positive results are unconfirmed and should not be used fornon-medical purposes. FENTANYL URINE Not Detected Not Detect [facility] Comment:Fentanyl cut-off is 1 ng/mL.Positive results are unconfirmed and should not be used fornon-medical purposes. Oxycodone Urine Screen Not Detected Not Detect ng/mL [facility] Comment:Oxycodone cut-off is 100 ng/mL.Positive results are unconfirmed and should not be used fornon-medical purposes. Buprenorphine Screen Not Detected Not Detect ng/mL [facility] Comment:Buprenorphine cut-of f is 5 ng/mL.Positive results are unconfirmed and should not be used fornon-medical purposes. 01/01/2025 10:0 4 PM EDT 01/01/2025 10:08 PM EDT us Generic External Data Provider LAB URINE ORDERAB LES Final Result [facility] [address] [place] [phone] * Vitamin D, 25-Hydroxy, Total, Immunoassay (12/28/2024 3:06 PM EDT) Vitamin D 25-OH Total 58.1 >30 ng/mL [facility] Comment: Health Based Reference Values*< 20 ng/mL Fmrdyfowd36-80 ng/mL Insufficient> 30 ng/mL Sufficient*Norma TREVINO. N Engl J Med. 2007;357:266-280There is no well-established upper level of normal vitamin Dlevels. Some laboratories use 50 ng/mL as an upper limit ofnormal. However, toxicity is patient-dependent and may occurat any level. Careful correlation with the patient'spresentation is necessary and, if there is concern forvitamin D toxicity, treatment should be consideredirrespective of the serum level.Care must be taken in interpreting Vitamin D [...] confirmed with another method such as LC-MS/MS. 12/28/2024 3:06 PM EDT 12/28/2024 3:06 PM EDT Generic External Data Provider LAB BLOOD ORDERAB LES Final Result Performing Organization Address [facility] Co de Phone Number [facility] [address] [place] [phone] * Iron And Total Iron Binding Capacity (12/28/2024 3:06 PM EDT) Iron 87 30 - 160 mcg/dL [facility] Total Iron Binding Capacity 291 228 - 428 mcg/dL [facility] Percent Iron Saturation 30 15 - 50 % [facility] Unsaturated Iron Binding 204 ug/dL [facility] 12/28/2024 3:06 PM EDT 12/28/2024 3:06 PM EDT Generic External Data Provider LAB BLOOD ORDERAB LES Final Result Performing Organization Address [facility] Co de Phone Number [facility] [address] [place] [phone] * C-reactive Protein (12/28/2024 3:06 PM EDT) C Reactive Protein <0.10 < or = 0.50 mg/dL [facility] 12/28/2024 3:06 PM EDT 12/28/2024 3:06 PM EDT Generic External Data Provider LAB BLOOD ORDERAB LES Final Result Performing Organization Address [facility] Co de Phone Number [facility] [address] [place] [phone] * Ferritin (12/28/2024 3:06 PM EDT) Ferritin 65 10 - 250 ng/mL [facility] 12/28/2024 3:06 PM EDT 12/28/2024 3:06 PM EDT us Generic External Data Provider LAB BLOOD ORDERAB LES Final Result Performing Organization Address [facility] Co de Phone Number [facility] [address] [place] [phone] [phone] * (ABNORMAL) Lipid Panel, Standard (10/20/2024 10:23 AM EDT) Triglycerides 98 <150 mg/dL [facility] Comment:Desirable Triglyceri de: less than 150 mg/dLBorderline High Triglyceride 150-199 mg/dLHigh Triglyceride: 200-499 mg/dLVery High Triglyceride: greater than or equal to 5OO mg/dL Cholesterol 103 <200 mg/dL [facility] Comment:Desirable Cholestero l: less than 200 mg/dLBorderline High Cholesterol: 200-239 mg/dLHigh Cholesterol: greater than 239 mg/dL LDL Cholesterol Calculated 44 <100 mg/dL [facility] Comment:Desirable LDL: less than 100 mg/dLNear Optimal/Above Optimal LDL: 110- 129 mg/dLBorderline High LDL: 130-159 mg/dLHigh LDL: 160-189 mg/dLVery High LDL: greater than or equal to 190 mg/dL HDL Cholesterol 40(L) >40 mg/dL [facility] Comment:Desirable HDL: great er than 40 mg/dL Note: This HDL assay may give artificially low results in patients with liver disease. Blood Venous blood specimen / Unknown 10/20/2024 10:23 AM EDT 10/20/2024 10:23 AM EDT us Shawna Gamble MD LAB BLOOD ORDERABLES Final Res ult Performing Organization Address City/[facility]/ZIP Co de Phone Number [facility] [address] [place] [phone] * (ABNORMAL) Albumin, Random Urine W/Creatinine (10/20/2024 10:18 AM EDT) Creatinine, Urine 54.62 mg/dL [facility] Microalbumin Urine 75.0 mg/L [facility] Microalbum Creatinine Ratio Ur 137.3(H) <30 ug/mg cr [facility] Comment:Albumin/Creatinine R atio Reference Ranges: Normal: < 30 ug/mg creatinine Microalbuminuria: 30 - 300 ug/mg creatinineClinical Albuminuria: > 300 ug/mg creatinine Urine (Urine, Random) 10/20/2024 10:18 AM EDT 10/20/2024 11:55 AM EDT Shawna Gamble MD LAB URINE ORDERABLES Final Res ult [facility] [address] [place] [phone] * BI Mammogram Screening Tomosynthesis Bilateral (06/30/2024 2:15 PM EST) Anatomical Region Laterality Modality Breast Bilateral Mammography 06/30/2024 2:15 PM EST Narrative 07/08/2024 1:56 PM EST [address] [place] [address] Mammography Report Signed Patient: Sonia Marcano MR#: [id number] 5 : 1955 Acct:[id number] Age/Sex: 68 / F ADM Date: 06/30/24 Loc: JOSE RAUL.MAMMO Attending Dr: Shawna Gamble MD Ordering Physician: Shawna Gamble Results: 1Negative Date of Service: 06/30/24 Follow Up: 1 Year From Orig ina Mammogram Procedure(s): MM tomosynthesis screening BI Accession Number(s): [id number] cc: Shawna Gamble EXAMINATION: MM SCREENING DIGITAL [...] 07/08/24 1353 DD/ 1415 TD/TT: 06/30/24 1426 Chemist Enzymes: Procedure Note Donotuseinterpreter, Image - 07/08/2024 [facility] [address] [place], [place] [address] Mammography Report Signed Patient: Sonia MarcanoMR#: [id number] 5 : 4Acct:[id number] Age/Sex: 68 / FADM Date: 06/30/24 Loc: .MAMMO Attending Dr: Shawna Gamble MD Ordering Physician: Tera Gambleults: 1Negative Date of Service: 06/30/24Follow Up: 1 Year From Orig inal Mammogram Procedure(s): MM tomosynthesis screening BI Accession Number(s): [id number] cc: Shawna Gabmle EXAMINATION: MM SCREENING DIGITAL BREAST TOMOSYNTHESIS, BILATERAL [...] 07/08/24 1353 DD/ 1415 TD/TT: 06/30/24 1426 Chemist Enzymes: Shawna Gamble MD IMG BI PROCEDURES Edited Resul t - Final * Hepatitis C Ab (10/30/2022 9:18 AM EDT) Hepatitis C Antibody Nonreactive Nonreactive [facility] Comment:Antibodies to HCV no t detected; does not exclude early acuteHCV infection. 10/30/2022 9:18 AM EDT 10/30/2022 9:18 AM EDT [facility] External Provider LAB BLO OD ORDERABLES Final Result [facility] [address] [place] [phone] * Hm Colonoscopy (10/11/2020 9:13 AM EDT) Shahrzad Provider HEALTH MAINTENANCE Final Result from Last 3 Months or Most Recently Relevant to Health Maintenance Insurance * Guarantor: Sonia Marcano Account Type Relation to Patient Date of Phone Billing Address Personal/Family Self [address] [place] Care Teams Food Beverage Server Relationship Specialty Start Date End Date Shawna Gamble MD [address] [place] [address] [place] PCP - General Family Medicine 05/13/22 Shyp 01/22/25
--- OUTSIDE RECORDS SUMMARY | 2025-02-12 18:28 | XMS_ITS | Encounter Summary ---
Author Organization [employer] Address [address] [facility] [address] [place] [address] Care Team Providers Care Speech Therapy Assistant Name Role Phone Shawna Gamble MD Primary Care Provider [phone] Encounter Details Date Type Department Care Team ([facility] st Contact Info) Description 10/20/2024 Orders Only [facility] [address], [place] [phone] Shawna Gamble MD [address] [place] [address] Hypomagnesemia (Primary Dx) Social History Tobacco Use [...] Recorded Patient Health Questionnaire-2 Score 3 10/18/2024 Comments Unknown Sex and Gender Information Value [...] Description 03/02/2025 11:00 AM EDT Medication Management [facility] [address] [place] [address] Apurva Corona, PharmD [address] [place] [address] Scheduled Orders Name Type Priority Associated Diagnoses Orde r Schedule Magnesium Lab Routine Hypomagnesemia Expected: 10/29/2024, Expires: 10/29/2025 documented as of this encounter Procedures Procedure Name Priority Date/Time Associated Diagnosis Comments MAGNESIUM Routine 10/27/2024 12:45 PM EDT Hypomagnesemia documented in this encounter Results * (ABNORMAL) Magnesium (10/27/2024 12:45 PM EDT) Magnesium 1.3(LL) 1.6 - 2.6 mg/dL [facility] Comment:Critical value for M AG: Results called to and read back by:Preethi Suarez Person calling: NETO Date: 10/27/24 Time: 1414 Blood Venous blood specimen / Unknown 10/27/2024 12:45 PM EDT 10/27/2024 12:45 PM EDT us Shawna Gamble MD LAB BLOOD ORDERABLES Final Res ult [facility] [address] [place] [phone] documented in this encounter Visit Diagnoses Diagnosis Hypomagnesemia- Primary Disorders of magnesium metabolism documented in this encounter Additional Health Concerns Assessment Noted Time PHQ-9 Depression Total Score: 6 10/19/19 11:41 AM EDT documented as of this encounter Care Teams Speech Therapy Assistant Relationship Specialty Start Date End Date Shawna Gamble MD [address] [place] [phone] PCP - General Family Medicine 05/13/22 simfy 01/22/25 documented as of this encounter
--- OUTSIDE RECORDS SUMMARY | 2025-02-12 18:28 | XMS_ITS | Encounter Summary ---
Author Organization [employer] [facility] Address [address] [place] [address] 7 [place] [address] Care Team Providers Care Quality Improvement Analyst Name Role Phone Makenna Trinidad MD Primary Care Provider Daphneynh Shawna Kirkland MD Primary Care Provider [phone] Encounter Details Date Type Department Care Team (Latest Contact Info) Description 08/23/2018 Abstract [facility] Dental, Provider, DDS Social History Tobacco [...] Description 03/02/2025 11:00 AM EDT Medication Management [facility] [address] [place] [address] Apurva Corona, PharmD [address] [place] [address] documented as of this encounter Visit Diagnoses Not on filedocumented in this encounter Care Teams Quality Improvement Analyst Relationship Specialty Start Date End Date Makenna Trinidad MD PCP - General Family Medicine 03/24/19 05/12/22 Shawna Gamble MD [address] [place] [address] PCP - General Family Medicine 05/13/22 Virdia 01/22/25 documented as of this encounter
--- OUTSIDE RECORDS SUMMARY | 2025-02-12 18:28 | XMS_ITS | Encounter Summary ---
Author Organization [employer] Address [address] [place] [address] [address] [place] [address] Care Team Providers Care Cat Scanner Operator Name Role Phone Shawna Gamble MD Primary Care Provider Reason for Visit * Reason Onset Date Comments Durable Medical Equipment 07/03/2022 Encounter Details Date Type Department Care Team ([facility] st Contact Info) Description 07/03/2022 Telephone [facility] [address] [place], [place] [phone] Shawna Gamble MD [address] [place] [address] Durable Medical Equipment Social History Tobacco Use [...] 07/15/2022 2:22 PM EST Form received from [employer] for bed pads for signature * Telephone [...] Description 03/02/2025 11:00 AM EDT Medication Management [facility] [address] [place] [address] Apurva Corona PharmD [address] [place] [address] documented as of this encounter Visit Diagnoses Not on filedocumented in this encounter Care Teams Cat Scanner Operator Relationship Specialty Start Date End Date Shawna Gamble MD [address] [place] [phone] PCP - General Family Medicine 05/13/22 This Week In 01/22/25 documented as of this encounter
--- OUTSIDE RECORDS SUMMARY | 2025-02-12 18:28 | XMS_ITS | Encounter Summary ---
Author Organization [employer] Address [address] [place] [address] 7t [place] [address] Care Team Providers Care Supervisor Slashing Department Name Role Phone Shawna Gamble MD Primary Care Provider [phone] Reason for Visit * Reason Onset Date Comments requesting script 05/13/2022 Encounter Details Date Type Department Care Team ([facility] st Contact Info) Description 05/13/2022 Telephone [facility] MEDICINE [address] [place] [address] Makenna Trinidad MD requesting script Social History [...] PM EST TC place to pt at [phone] via [place] [facility]. Pt states she's in need of body wipes, Large pull ups. large gloves d/t incontinence of urine when pt coughs. Pt states, you guys have always supplied me with these. Will message Dr. Gamble for script. Pt to F/U PRN. * Telephone Encounter - Jim Armstrong - 05/13/2022 12:33 PM EST Tc from pt requesting script for body wipes, Large pull ups. Large gloves would like for script to be send to medline Please contact pt at [phone] documented in this encounter Plan of Treatment Upcoming Encounters Date Type Department Care Team (Late st Contact Info) Description 03/02/2025 11:00 AM EDT Medication Management [facility] MEDICINE [address] [place], [place] [phone] Apurva Corona, PharmD [address] [place] [address] documented as of this encounter Visit Diagnoses Not on filedocumented in this encounter Care Teams Supervisor Slashing Department Relationship Specialty Start Date End Date Shawna Gamble MD [address] [place] [address] PCP - General Family Medicine 05/13/22 [employer] 01/22/25 documented as of this encounter
--- OUTSIDE RECORDS SUMMARY | 2025-02-12 18:28 | XMS_ITS | Patient Health Record ---
Author Organization [facility] Address [address] [place] [address] Care Team Providers Care Supervisor Dials Name Role Phone Anish Santiago MD, Arnulfo [...] W/U Status Risk Notes Problem Esophageal reflux (186354511) Esophageal reflux (530.81) Active confirmed Problem Epigastric pain (52540088) Abdominal pain, epigastric (789.06) Active confirmed Plan Of Treatment No Information Insurance Providers Payer Name Payer Address Payer Phone Subscriber Number Group Number Insured Name Patient Relationship to Insured Coverage Start Date Coverage End Date [facility] [address] [address] [place], [place] [id number] TILLEY Self - patient is the insured Medical (General) History Medical History History ICD Code colonoscopy 12-09-2005 Diabetes mellitus type 2 Neuropathy Elevated cholesterol Hypertension Surgical History Surgery Date(Month/Year) Bilateral carpal tunnel release Cholecystectomy
--- OUTSIDE RECORDS SUMMARY | 2025-02-12 18:28 | XMS_ITS | Encounter Summary ---
Author Organization [employer] Address [address] 7t [place] [address] Care Team Providers Care Steam Fitter Helper Name Role Phone Shawna Gamble MD Primary Care Provider [phone] Encounter Details Date Type Department Care Team ([facility] st Contact Info) Description 11/07/[address] [facility] MEDICINE [address] [place], [place] [phone] Shawna Gamble MD 230 [place] [address] Hypomagnesemia (Primary Dx) Social History Tobacco Use [...] Description 03/02/2025 11:00 AM EDT Medication Management [facility] MEDICINE [address] [place] [address] Apurva Corona, PharmD [address] [place] [address] documented as of this encounter Procedures Procedure Name Priority Date/Time Associated Diagnosis Comments MAGNESIUM Routine 12/28/2024 3:06 PM EDT Hypomagnesemia documented in this encounter Results * Magnesium (12/28/2024 3:06 PM EDT) Magnesium 1.7 1.6 - 2.6 mg/dL [facility] Blood Venous blood specimen / Unknown 12/28/2024 3:06 PM EDT 12/28/2024 3:06 PM EDT us Shawna Gamble MD LAB BLOOD ORDERABLES Final Res ult [facility] [address] [place] [address] [phone] documented in this encounter Visit Diagnoses Diagnosis Hypomagnesemia- Primary Disorders of magnesium metabolism documented in this encounter Additional Health Concerns Assessment Noted Time PHQ-9 Depression Total Score: 6 10/19/19 25 11:41 AM EDT documented as of this encounter Care Teams Steam Fitter Helper Relationship Specialty Start Date End Date Shawna Gamble MD [address] [place] [address] PCP - General Family Medicine 05/13/22 [employer] 01/22/25 documented as of this encounter
--- OUTSIDE RECORDS SUMMARY | 2025-02-12 18:28 | XMS_ITS | Encounter Summary ---
Author Organization [facility] Address [address] [place] [address] Encounters * CPT with Medical [facility] at [facility] on 2025-01-01 Patient with complaints of weakness and dizziness in the home. Recent labs H&H 12.3 36.6 Iron 87 Magnesium 1.7. RBC 4.10 No reported blood in stool. BG today 146 this am. SEE ALLERGIES: cetaminophenDrug IngredientNot UleotdfayOmlfkqq85/19/2014Past Updates AzithromycinDrug IngredientItching CortisoneDrug IngredientNo Other reaction(s): itching all over DoxycyclineDrug Ingredient Other reaction(s): itching all over Ketorolac Tromethamines MetforminDrug IngredientNot SpecifiedAllergy06/17/2010Past Updates Other reaction(s): GI intolerance MorphineDrug IngredientNot SpecifiedAllergy06/08/2022ast Updates OxycodoneDrug IngredientNot YfuvekfrmPeampax53/19/2014Past Updates Oxycodone-acetaminophenDrugUnknownNot SpecifiedAllergy11/07/2023ast Updates PenicillinsDrug ClassNot SpecifiedAllergy06/17/2010Past Updates Other reaction(s): Rash, rash Other reaction(s): Not available PioglitazoneDrug IngredientNot SpecifiedAllergy06/17/2010Past Updates Other reaction(s): fluid retention Sulfa AntibioticsDrug ClassNot SpecifiedAllergy06/08/2022ast Updates Other reaction(s): itching all over Sulfamethoxazole-trimethoprimDrug IngredientNot SpecifiedAllergy06/08/2022ast Updates Other reaction(s): hives TramadolDrug IngredientNot SpecifiedAllergy06/08/2022ast Updates TrimethoprimDrug IngredientNot SpecifiedAllergy06/17/2010Past Updates Other reaction(s): Rash, swollen lips Acetaminophen-codeine { reasonForRequest : dizziness , patientReports : , d enies :[], chiefComplaints : Dizziness, Weakness , pmh : Congestive Heart Failure, Hypertension, Coronary Artery Disease, COPD/Asthma, Chronic Kidney Disease, Diabetes Mellitus Type 2, Hyperlipidemia , allergies : Penicillins, Bactrim, Ketorolac, Acetaminophen, Azithromycin, Doxycycline, Morphine, Cortisone, Metformin, Oxycodone, Tramadol , otherAllergies : , painAssessment : , visitOu tcome : , additionalComments : HPI reviewed } Encountered patient seated upright and conscious, with family present. Patient reports approximately one month of weakness and dizziness, most prominent when changing positions from sitting to standing. Patient states she has been suffering multiple falls over the past month, her most recent resulting in transport to the emergency room. Patient denies chest pain, shortness of breath and acute changes in vision. 12 lead EKG exhibits a sinus rhythm with no present ectopy, non-diagnostic for acuteSTEMI. BMP performed and uploaded. Skin warm, dry and of appropriate color for ethnicity. Head and neck, free of trauma and edema. -JVD. Breath sounds present, clear and equal bilaterally. Abdomen is soft, non-tender and non-distended. Extremities free of trauma and edema. While performing the BMP, this teletypewriter operator had their back towards patient who attempted to stand with the use of her walker, resulting in a fall in which patient fell backwards landing on the radiator lining the apartment. [facility] called and notified immediately, agrees with plan for transport. No loss of co nsciousness was noted; patient shrieked during the fall and recalls the incident in its entirety. Before assessing c-spine in place of fall, patient was already sitting upright and working to stand on her own. Patient initially refused transport stating that happens when I forget to lock the brakes on my walker but after reconciling patients medication regimen and discovering patient is on Xarelto, this teletypewriter operator advised patient that head injuries in the presence of anti- coagulants should be taken seriously. After some convincing, patient was agreeable to transport. 911 was arranged by this teletypewriter operator on behalf of patient. Attempts to keep patient stationary were unsuccessful followingthe fall, patient still insisted on ambulating despite being urged not to; stating she had to use the bathroom and change clothing prior to going to the hospital. Patient care was relinquished to [facility] crew with verbal report given, transport destination [facility]. Post fall assessment: Patient remained alert and oriented, answering questions appropriately although not heeding this teletypewriter operator's advice of remaining stationary. Pupils equal round and reactive to light. Head exhibits no signs of trauma, patient reports striking her head and is experiencing some" pain. Neck was atraumatic, no deviation or trauma noted to the cervical spine region; patient denies neckpain with range of motion or at rest. Patients back was atraumatic, no signs of bruising or bleeding noted. Patient reports pain in left elbow but exhibits full range of motion and no lacerations or skin tears. IV_(FLUIDS_AND/OR_MEDICATION), ORAL_MEDICATION, POC_BLOODWORK, WOUND_CARE, ORTHOSTATIC_VITAL_SIGNS,PO_MEDICATION Written by Medical instED on 2025-01-01
--- OUTSIDE RECORDS SUMMARY | 2025-02-12 18:28 | XMS_ITS | Encounter Summary ---
Author Organization [employer] [facility] Address [address] [place] [address] 7t [place] [address] Care Team Providers Care Electronic Plotting System Operator Name Role Phone Shawna Gamble MD Primary Care Provider Encounter Details Date Type Department Care Team (Late Contact Info) Description 07/13/2022 Abstract [facility] ADULT DENTAL [address] [place], [place] [phone] Uriel Jacobs DDS [address] [place] [address] Social History Tobacco Use Types Packs/Day Years [...] Encounters Date Type Department Care Team (Late Contact Info) Description 03/02/2025 11:00 AM EDT Medication Management [facility] MEDICINE [address] [place] [address] Apurva Corona, PharmD [address] [place] [address] documented as of this encounter Visit Diagnoses Not on filedocumented in this encounter Care Teams Electronic Plotting System Operator Relationship Specialty Start Date End Date Shawna Gamble MD [address] [place] [address] PCP - General Family Medicine 05/13/22 [employer] 01/22/25 documented as of this encounter
--- OUTSIDE RECORDS SUMMARY | 2025-02-12 18:29 | XMS_ITS | Encounter Summary ---
Author Organization [employer] Address [address] [facility] [address] 7t [place] [address] Care Team Providers Care Baked Goods Stock Clerk Name Role Phone Shawna Gamble MD Primary Care Provider [phone] Encounter Details Date Type Department Care Team ([facility] st Contact Info) Description 03/15/2023 Orders Only [facility] MEDICINE [address] [place] [address] Shawna Gamble MD [address] [place] [address] Social History Tobacco Use Types Packs/Day Years [...] Medication Management [facility] MEDICINE [address] [place] [address] Apurva Corona, HennyD [address] [place] [address] documented as of this encounter Visit Diagnoses Not on filedocumented in this encounter Care Teams Baked Goods Stock Clerk Relationship Specialty Start Date End Date Shawna Gamble MD [address] [place] [address] PCP - General Family Medicine 05/13/22 [employer] 01/22/25 documented as of this encounter
--- OUTSIDE RECORDS SUMMARY | 2025-02-12 18:29 | XMS_ITS | Encounter Summary ---
Author Organization [employer] Address [address] [facility] 7t [place] [address] Care Team Providers Care Cone Classifier Tender Name Role Phone Shawna Gamble MD Primary Care Provider [phone] Reason for Visit * Reason Comments Med Refill Encounter Details Date Type Department Care Team ([facility] st Contact Info) Description 02/26/2023 Refill [facility] MEDICINE [address] [place] [address] Shawna Gamble MD [address] [place] [address] Primary insomnia Social History Tobacco Use Types Packs/Day Years Used Date Smoking Tobacco: Never Passive Smoke Exposure: Never Smokeless Tobacco: Never Alcohol Use Standard Drinks/Week Comments Never 0 (1 standard drink = 0.6 oz pur e alcohol) Housing Stability Answer Date Recorded What is your housing situation today? I have amadorbennie telles 03/01/[address] you [...] Description 03/02/2025 11:00 AM EDT Medication Management [facility] MEDICINE [address] [place] [address] Apurva Corona, HennyD [address] [place] [address] documented as of this encounter Visit Diagnoses Diagnosis Primary insomnia Persistent disorder of initiating or maintaining sleep documented in this encounter Care Teams Cone Classifier Tender Relationship Specialty Start Date End Date Shawna Gamble MD [address] [place] [address] PCP - General Family Medicine 05/13/22 [employer] 01/22/25 documented as of this encounter
--- OUTSIDE RECORDS SUMMARY | 2025-02-12 18:29 | XMS_ITS | Encounter Summary ---
Author Organization [employer] Address [address] [facility] 7t [place] [address] Care Team Providers Care Dry Boss Name Role Phone Shawna Gamble MD Primary Care Provider [phone] Reason for Visit * Reason Comments Med Refill Encounter Details Date Type Department Care Team ([facility] st Contact Info) Description 02/18/2023 Refill [facility] MEDICINE [address] [place] [address] Shawna Gamble MD [address] [place] [address] Primary insomnia Social History Tobacco Use Types Packs/Day Years Used Date Smoking Tobacco: Never Passive Smoke Exposure: Never Smokeless Tobacco: Never Alcohol Use Standard Drinks/Week Comments Never 0 (1 standard drink = 0.6 oz pur e alcohol) Housing Stability Answer Date Recorded What is your housing situation today? I have amadorbennie telles 02/22/[address] you [...] Description 03/02/2025 11:00 AM EDT Medication Management [facility] MEDICINE [address] [place] [address] Apurva Corona, HennyD [address] [place] [address] documented as of this encounter Visit Diagnoses Diagnosis Primary insomnia Persistent disorder of initiating or maintaining sleep documented in this encounter Care Teams Dry Boss Relationship Specialty Start Date End Date Shawna Gamble MD [address] [place] [address] PCP - General Family Medicine 05/13/22 [employer] 01/22/25 documented as of this encounter
--- OUTSIDE RECORDS SUMMARY | 2025-02-12 18:29 | XMS_ITS | Encounter Summary ---
Author Organization [employer] Address [address] [facility] 7t [place] [address] Care Team Providers Care Quality Assurance Monitor Name Role Phone Shawna Gamble MD Primary Care Provider [phone] Encounter Details Date Type Department Care Team ([facility] st Contact Info) Description 12/01/2023 Orders Only [facility] MEDICINE [address] [place], [place] [phone] Shawna Gamble MD [address] [place] [address] Closed fracture of medial portion of left [...] Description 03/02/2025 11:00 AM EDT Medication Management [facility] MEDICINE [address] [place] [address] Apurva Corona PharmD [address] [place] [address] documented as of this encounter Visit Diagnoses Diagnosis Closed fracture of medial portion of left tibial plateau with routine healing, subsequent encounter- Primary documented in this encounter Additional Health Concerns Assessment Noted Time PHQ-9 Depression Total Score: 6 10/15/19 24 11:05 AM EDT documented as of this encounter Care Teams Quality Assurance Monitor Relationship Specialty Start Date End Date Shawna Gamble MD [address] [place] [address] PCP - General Family Medicine 05/13/22 [employer] 01/22/25 documented as of this encounter
--- OUTSIDE RECORDS SUMMARY | 2025-02-12 18:29 | XMS_ITS | Continuity of Care Document ---
Author Name [facility] Address [address] [place] [address] Organization Unknown Address [address] [place] [address] Medications No known medications Problems No known problems
--- OUTSIDE RECORDS SUMMARY | 2025-02-12 18:29 | XMS_ITS | Encounter Summary ---
Author Organization [facility] Address [address] [place] [address] Phone Care Team Providers Care Wind Plant Manager Name Role Phone Reena Marinelli Primary Care Provider [phone] Encounter Details Date Type Department Care Team (Late st Contact Info) Description 08/24/2019 Ancillary Orders [facility] [address] [place] [address] [place] [address] Reena Marinelli PA [address] [place] [address] [email or web address] Social History Tobacco Use Types Packs/Day [...] Palpitations documented in this encounter Care Teams Wind Plant Manager Relationship Specialty Start Date End Date Reena Marinelli PA [address] [place] [address] [email or web address] PCP - General Central Sterile Supply Technician 08/18/19 documented as of this encounter Additional Source Comments The information contained in this document represents components of the legal health record. It is not the complete legal health record.[facility]
--- OUTSIDE RECORDS SUMMARY | 2025-02-12 18:29 | XMS_ITS | Encounter Summary ---
Author Organization [employer] Address [address] [facility] 7t [place] [address] Care Team Providers Care Slinger Sequins Name Role Phone Shawna Gamble MD Primary Care Provider [phone] Reason for Visit * Reason Comments Med Change Request Encounter Details Date Type Department Care Team ([facility] st Contact Info) Description 02/10/2024 Refill [facility] MEDICINE [address] [place] [address] Anisha Mc MD [address] [place] [address] Social History Tobacco Use Types Packs/Day Years [...] Description 03/02/2025 11:00 AM EDT Medication Management [facility] MEDICINE [address] [place] [address] Apurva Corona PharmD [address] [place] [address] documented as of this encounter Visit Diagnoses Not on filedocumented in this encounter Additional Health Concerns Assessment Noted Time PHQ-9 Depression Total Score: 6 10/15/19 24 11:05 AM EDT documented as of this encounter Care Teams Slinger Sequins Relationship Specialty Start Date End Date Shawna Gamble MD [address] [place] [address] PCP - General Family Medicine 05/13/22 [employer] 01/22/25 documented as of this encounter
--- OUTSIDE RECORDS SUMMARY | 2025-02-12 18:29 | XMS_ITS | Encounter Summary ---
Author Organization [employer] Address [address] [place] [address] 7t [place] [address] Care Team Providers Care Resistance Welder Name Role Phone Shawna Gamble MD Primary Care Provider [phone] Encounter Details Date Type Department Care Team ([facility] st Contact Info) Description 11/25/2022 Telephone [facility] MEDICINE [address] [place], [place] [phone] Shawna Gamble MD [address] [place] [address] Social History Tobacco Use Types Packs/Day Years [...] for VNA services. Please contact edgardo at [phone] Fax number: [phone] documented in this encounter Plan of Treatment Upcoming Encounters Date Type Department Care Team (Late st Contact Info) Description 03/02/2025 11:00 AM EDT Medication Management [facility] MEDICINE [address] [place] [address] Apurva Corona PharmD [address] [place] [address] documented as of this encounter Visit Diagnoses Not on filedocumented in this encounter Care Teams Resistance Welder Relationship Specialty Start Date End Date Shawna Gamble MD [address] [place] [address] PCP - General Family Medicine 05/13/22 [employer] 01/22/25 documented as of this encounter
--- OUTSIDE RECORDS SUMMARY | 2025-02-12 18:29 | XMS_ITS | Encounter Summary ---
Author Organization [employer] Address [address] [place] [address] 7t [place] [address] Care Team Providers Care Biomass Power Plant Manager Name Role Phone Shawna Gamble MD Primary Care Provider [phone] Reason for Visit * Reason Comments Med Refill Encounter Details Date Type Department Care Team ([facility] st Contact Info) Description 10/14/2024 Refill [facility] ADULT DENTAL [address] [place] [address] Uriel Jacobs DDS [address] [place] [address] Social History Tobacco Use Types Packs/Day Years [...] Description 03/02/2025 11:00 AM EDT Medication Management [facility] MEDICINE [address] [place] [address] Apurva Corona PharmD [address] [place] [address] documented as of this encounter Visit Diagnoses Not on filedocumented in this encounter Additional Health Concerns Assessment Noted Time PHQ-9 Depression Total Score: 6 10/15/19 24 11:05 AM EDT documented as of this encounter Care Teams Biomass Power Plant Manager Relationship Specialty Start Date End Date Shawna Gamble MD 230 [place] [address] PCP - General Family Medicine 05/13/22 [employer] 01/22/25 documented as of this encounter
--- OUTSIDE RECORDS SUMMARY | 2025-02-12 18:29 | XMS_ITS | Encounter Summary ---
Author Organization [employer] Address [address] [place] [address] 7[address] [place] [address] Care Team Providers Care Burglar Alarm Mechanic Name Role Phone Shawna Gamble MD Primary Care Provider Encounter Details Date Type Department Care Team (Late st Contact Info) Description 02/12/2025 Orders Only GENERIC EXTERNAL DATA DEPARTMENT Provider, Generic External Data Social History Tobacco Use Types Packs/Day Years [...] Description 03/02/2025 11:00 AM EDT Medication Management [facility] [address] [place], [place] [phone] Apurva Corona, PharmD [address] [place] [address] documented as of this encounter Procedures Procedure Name Priority Date/Time Associated Diagnosis Comments CT CERVICAL SPINE WO CONTRAST Routine 02/12/2025 6:[address] HEAD WO CONTRAST Routine 02/12/2025 6 :09 PM EDT HIGH SENSITIVITY TROPONIN I Routine 02/12/2025 5:02 PM EDT CBC WITH AUTO DIFFERENTIAL Routine 02/12/2025 5:02 PM EDT PROTHROMBIN TIME-INR Routine 02/12/2025 5:02 PM EDT MAGNESIUM Routine 02/12/2025 5:02 PM EDT COMPREHENSIVE METABOLIC PANEL Routine 02/12/2025 5:02 PM EDT documented in this encounter Results * CT Cervical Spine w/o Contrast (02/12/2025 6:19 PM EDT) Anatomical Region Laterality Modality Spine, C-spine Computed Tomogra phy 02/12/2025 6:19 PM EDT Narrative 02/12/2025 6:20 PM EDT [address] [address] [address] Scan Report Signed Patient: Sonia Marcano MR#: [id number] 5 : 1955 Acct:[id number] Age/Sex: 69 / F ADM Date: 02/12/25 Loc: HO.ED Attending Dr: Ordering Physician: Kady Sibley Date of Service: 02/12/25 Procedure(s): CT cervical spine wo IV con Accession Number(s): [id number] cc: Kady Sibley; Shawna Gamble Report Number: [id number]: Total DLP = 0.00 mGy-cm Reason for [...] in OV> 02/12/251818 DD/ 18 TD/TT: 02/12/251818 Research Archaeologist: Procedure Note Donotuseinterpreter, Image - 02/12/[address] [address] [address] Scan Report Signed Patient: Sonia MarcanoMR#: [id number] 5 : 4Acct:[id number] Age/Sex: 69 / FADM Date: 02/12/25 Loc: HO.ED Attending Dr: Ordering Physician: Kady Sibley Date of Service: 02/12/25 Procedure(s): CT cervical spine wo IV con Accession Number(s): [id number] cc: Kady Sibley; Shawna Gamble Report Number: [id number]: Total DLP = 0.00 mGy-cm Reason for [...] in OV> 02/12/251818 DD/ 18 TD/TT: 02/12/251818 Research Archaeologist: [facility] External Provider IMG CT PROCEDURES Final Result * CT Head w/o Contrast (02/12/2025 6:09 PM EDT) Anatomical Region Laterality Modality Head, Neck Computed Tomogra phy 02/12/2025 6:09 PM EDT Narrative 02/12/2025 6:10 PM EDT [address] [address] [address] Scan Report Signed Patient: Sonia Marcano MR#: [id number] 5 : 1955 Acct:[id number] Age/Sex: 69 / F ADM Date: 02/12/25 Loc: HO.ED Attending Dr: Ordering Physician: Kady Sibley Date of Service: 02/12/25 Procedure(s): CT head/brain wo IV con Accession Number(s): [id number] cc: Kady Sibley; Shawna Gamble Report Number: [id number]: Total DLP = 920.00 mGy-cm Reason for [...] in OV> 02/12/251809 DD/ 08 TD/TT: 02/12/251808 Research Archaeologist: Procedure Note Donotuseinterpreter, Image - 02/12/[address] [place] [address] [address] Scan Report Signed Patient: Sonia MarcanoMR#: [id number] 5 : 4Acct:[id number] Age/Sex: 69 / FADM Date: 02/12/25 Loc: HO.ED Attending Dr: Ordering Physician: Kady Sibley Date of Service: 02/12/25 Procedure(s): CT head/brain wo IV con Accession Number(s): [id number] cc: Kady Sibley; Shawna Gamble Report Number: [id number]: Total DLP = 920.00 mGy-cm Reason for [...] in OV> 02/12/251809 DD/ 08 TD/TT: 02/12/251808 Research Archaeologist: [facility] External Provider IMG CT PROCEDURES Final Result * High Sensitivity Troponin I (02/12/2025 5:02 PM EDT) TROPONIN I HIGH SENSITIVITY <2.7 <3.5 - 17.0 ng/L [facility] Comment:The Goins high sens itivity Troponin-I results should beused in conjunction with other diagnostic information suchas ECG, clinical observations and information, and patientsymptoms to aid in the diagnosis of OR. 02/12/2025 5:02 PM EDT 02/12/2025 5:09 PM EDT Generic External Data Provider LAB BLOOD ORDERAB LES Final Result Performing Organization Address [facility] Co de Phone Number [facility] [address] [place] [address] [phone] * (ABNORMAL) Magnesium (02/12/2025 5:02 PM EDT) Magnesium 1.5(L) 1.6 - 2.6 mg/dL [facility] 02/12/2025 5:02 PM EDT 02/12/2025 5:09 PM EDT Generic External Data Provider LAB BLOOD ORDERAB LES Final Result Performing Organization Address [facility] Co de Phone Number [facility] [address] [place] [address] [phone] * (ABNORMAL) Comprehensive Metabolic Panel (02/12/2025 5:02 PM EDT) Sodium 139 135 - 145 mmol/L [facility] Potassium 4.1 3.3 - 5.1 mmol/L [facility] Chloride 101 96 - 108 mmol/L [facility] Carbon Dioxide 25 22 - 29 mmol/L [facility] Anion Gap 17 12 - 20 [facility] Urea Nitrogen (BUN) 18(H) 9 - 16 mg/dL [facility] Creatinine, Serum 1.12 0.5 - 1.4 mg/dL [facility] Creatinine Clr Calc Pharmacy 39.8 [facility] Comment:Provided height and weight: 162.56 cm,61.5 kg.eGFR (calculated from the MDRD study equation) and eCrCl(calculated from the Cockcroft-Gault equation) are based ondifferent parameters and may not yield comparable results.If eCrCl result is absurd, please check patient'sheight/weight. Estimated Glomerular Filt Rate 48 [facility] Comment:Chronic Kidney Disea se: Estimated GFR < 60 mL/min/1.25j0Djielr Kidney Disease: Estimated GFR < 15 mL/min/1.73m2 Glucose 180(H) 60 - 115 mg/dL [facility] Calcium 9.9 8.4 - 10.2 mg/dL [facility] Bilirubin, Total 0.2 0.0 - 1.0 mg/dL [facility] Aspartate Amino Transferase 49(H) 5 - 31 U/L [facility] Alanine Aminotransferase 36(H) 0 - 31 U/L [facility] Total Protein 7.5 6.5 - 8.0 g/dL [facility] Albumin Level 4.6 3.5 - 5.0 g/dL [facility] Alkaline Phosphatase 136(H) 39 - 117 U/L [facility] 02/12/2025 5:02 PM EDT 02/12/2025 5:09 PM EDT Generic External Data Provider LAB BLOOD ORDERAB LES Final Result Performing Organization Address [facility]/ZIP Co de Phone Number [facility] [address] [place] [phone] * Prothrombin Time-INR (02/12/2025 5:02 PM EDT) [facility] Prothrombin Time 11.8 10.9 - 12.4 SEC [facility] INTERNATIONAL NORM RATIO 1.0 0.9 - 1.1 [facility] Comment:INTERNATIONAL NORMAL IZED RATIO (INR) [...] 5:02 PM EDT 02/12/2025 5:09 PM EDT Generic External Data Provider LAB BLOOD ORDERAB LES Final Result Performing Organization Address [facility] de Phone Number [facility] [address] [place] [phone] * (ABNORMAL) CBC auto differential (02/12/2025 5:02 PM EDT) Pathologist [facility] White Blood Count 11.3(H) 4.8 - 10.8 X10*3/uL [facility] Red Blood Count 3.82(L) 4.20 - 5.50 X10*6/uL [facility] Hemoglobin 11.3(L) 12.0 - 16.0 g/dl [facility] Hematocrit 34.1(L) 37.0 - 47.0 % [facility] Mean Corpuscular Volume 89.3 80.0 - 98.0 fL [facility] Mean Corpuscular Hemoglobin 29.6 27.0 - 33.0 pg [facility] Mean Corpuscular HGB Conc 33.1 31.0 - 35.0 g/dl [facility] Red Cell Distribution Width 14.9 11.0 - 16.0 % [facility] Platelet Count 283 160 - 400 X10*3/uL [facility] Mean Platelet Volume 11.9 9.4 - 12.3 fL [facility] Neutrophils Percent Auto 65.7 45 - 73 % [facility] Imm Gran Pct Auto 0.5(H) 0.0 - 0.4 % [facility] Lymphocytes Percent Auto 20.8 20 - 40 % [facility] Monocytes Percent Auto 8.2 2 - 11 % [facility] Eosinophils Percent Auto 3.9 0 - 4 % [facility] Basophils Percent Auto 0.9 0 - 2 % [facility] NRBC Pct Auto 0.0 0.0 - 0.2 /100WBC [facility] Neutrophils Absolute Auto 7.4 2.0 - 8.3 x10*3/uL [facility] Imm Gran Abs Auto 0.06(H) 0.00 - 0.03 X10*3/uL [facility] Lymphocytes Absolute Auto 2.4 1.2 - 4.9 X10*3/uL [facility] Monocytes Absolute Auto 0.9 0.1 - 1.2 X10*3/uL [facility] Eosinophils Absolute Auto 0.4 0.0 - 0.4 X10*3/uL [facility] Basophils Absolute Auto 0.1 0.0 - 0.2 X10*3/uL [facility] NRBC Abs Auto 0.000 0.0 - 0.012 X10*3/uL [facility] 02/12/2025 5:02 PM EDT 02/12/2025 5:09 PM EDT us Generic External Data Provider LAB BLOOD ORDERAB LES Final Result [facility] [address] [place] [phone] documented in this encounter Visit Diagnoses Not on filedocumented in this encounter Additional Health Concerns Assessment Noted Time PHQ-9 Depression Total Score: 6 10/19/19 25 11:41 AM EDT documented as of this encounter Care Teams Burglar Alarm Mechanic Relationship Specialty Start Date End Date Shawna Gamble MD [address] [place] [address] PCP - General Family Medicine 05/13/22 [facility] 01/22/25 documented as of this encounter
--- OUTSIDE RECORDS SUMMARY | 2025-02-12 18:29 | XMS_ITS | Clinical Summary ---
Author Organization [facility] Address [address] [place] [phone] Phone Care Team Providers Care Activities Director Name Role Phone Reena Marinelli Primary Care Provider [phone] Social History Tobacco Use Types Packs/Day Years [...] file Medical Devices Not on file [facility] [place] [id number] [facility] MEDICARE REPLACEMENT [facility] MEDICARE REPLACEMENT [facility] MEDICARE REPLACEMENT Care Teams Activities Director Relationship Specialty Start Date End Date Reena Marinelli PA [address] [place] [address] [email or web address] PCP - General Water Pumper 08/18/19 Additional Source Comments The information contained in this document represents components of the legal health record. It is not the complete legal health record.[facility]
--- OUTSIDE RECORDS SUMMARY | 2025-02-12 18:29 | XMS_ITS | Encounter Summary ---
Author Organization [employer] Address [address] [facility] 7t [place] [address] Care Team Providers Care Brazer Helper Induction Name Role Phone Shawna Gamble MD Primary Care Provider [phone] Encounter Details Date Type Department Care Team ([facility] st Contact Info) Description 09/27/2023 Orders Only [facility] [address] [place] [address] ProviderShahrzad MD Social History Tobacco Use Types [...] Description 03/02/2025 11:00 AM EDT Medication Management [facility] [address] [place] [address] Apurva Corona, PharmD [address] [place] [address] documented as of this encounter Procedures Procedure Name Priority Date/Time Associated Diagnosis Comments HM COLONOSCOPY Routine 10/11/2020 9:13 AM EDT documented in this encounter Results * Hm Colonoscopy (10/11/2020 9:13 AM EDT) Historical Provider HEALTH MAINTENANCE Final Result documented in this encounter Visit Diagnoses Not on filedocumented in this encounter Care Teams Brazer Helper Induction Relationship Specialty Start Date End Date Shawna Gamble MD [address] [place] [address] PCP - General Family Medicine 05/13/22 [employer] 01/22/25 documented as of this encounter
--- OUTSIDE RECORDS SUMMARY | 2025-02-12 18:29 | XMS_ITS | Encounter Summary ---
Author Organization [employer] Address [address] [place] [address] 7t [place] [address] Care Team Providers Care Seafood Packer Name Role Phone Shawna Gamble MD Primary Care Provider [phone] Reason for Visit * Reason Onset Date Comments rs appt 03/29/2023 Encounter Details Date Type Department Care Team ([facility] st Contact Info) Description 03/29/2023 Telephone [facility] [address] [place] [address] Uriel Jacobs DDS [address] [place] [address] rs appt Social History Tobacco Use Types [...] t he electric, gas, oil or water [employer] threatened to shut off services in your [...] Description 03/02/2025 11:00 AM EDT Medication Management [facility] [address] [place] [address] Apurva Corona, PharmD [address] [place] [address] documented as of this encounter Visit Diagnoses Not on filedocumented in this encounter Care Teams Seafood Packer Relationship Specialty Start Date End Date Shawna Gamble MD [address] [place] [address] PCP - General Family Medicine 05/13/22 [employer] 01/22/25 documented as of this encounter
--- OUTSIDE RECORDS SUMMARY | 2025-02-12 18:29 | XMS_ITS | Encounter Summary ---
Author Organization [employer] Address [address] [facility] [address] [place] [address] Care Team Providers Care Credentialer Name Role Phone Shawna Gamble MD Primary Care Provider [phone] Encounter Details Date Type Department Care Team ([facility] st Contact Info) Description 03/22/2023 Abstract [facility] [address] [place] [address] Shawna Gamble MD [address] [place], [place] [phone] Social History Tobacco Use Types Packs/Day Years [...] Description 03/02/2025 11:00 AM EDT Medication Management [facility] [address] [place] [address] Apurva Corona, HennyD [address] [place] [address] documented as of this encounter Visit Diagnoses Not on filedocumented in this encounter Care Teams Credentialer Relationship Specialty Start Date End Date Shawna Gamble MD [address] [place] [address] PCP - General Family Medicine 05/13/22 [employer] 01/22/25 documented as of this encounter
--- OUTSIDE RECORDS SUMMARY | 2025-02-12 18:29 | XMS_ITS | Encounter Summary ---
Author Organization [employer] Address [address] [facility] 7t [place] [address] Care Team Providers Care Business Analyst Project Manager Name Role Phone Shawna Gamble MD Primary Care Provider [phone] Reason for Visit * Reason Comments Med Refill Encounter Details Date Type Department Care Team ([facility] st Contact Info) Description 05/07/2023 Refill [facility] [address] [place], [place] [phone] Shawna Gamble MD [address] [place] [address] Social History Tobacco Use Types Packs/Day Years [...] Description 03/02/2025 11:00 AM EDT Medication Management [facility] [address] [place] [address] Apurva Corona, HennyD [address] [place] [address] documented as of this encounter Visit Diagnoses Not on filedocumented in this encounter Care Teams Business Analyst Project Manager Relationship Specialty Start Date End Date Shawna Gamble MD [address] [place] [phone] PCP - General Family Medicine 05/13/22 [employer] 01/22/25 documented as of this encounter
--- NOTE | 2025-02-12 18:35 | PC.NURSE ---
Addendum entered by Vanesa Aparicio RN 02/12/25 18:36: Patient is a 69 yo female who presents with more weakness in her legs and pain in her feet causing a fall. c/o right sided rib/back pain increasing with movement. Respirations even and non-labored. Abdomen soft. non-tender with positive bowel sounds. Positive pedal pulses with no edema. Original Note: Medical History Anemia Rheumatic arteritis Neuropathy History of heart attack Diabetes Pancreatic insufficiency GERD (gastroesophageal reflux disease)
[2025-02-12] MEDS: iohexoL 350 MG/ML 100 ML INFUS..BTL 85 ML IV (20:07)
[2025-02-12 20:55] LABS: Appearance Urine Clear; Glucose Urine UA >=1000 mg/dL (Negative); PH 6.5 (5.0-9.0); Specific Gravity - Urine 1.015 (1.005-1.025); UMIC TRIGGER UACC YES
[2025-02-12] MEDS: Magnesium Sulfate/H2O 2 GM/50 ML PIGGYBACK IV (21:17)
== END 2025-02-12 22:04 | disposition home or self-care (01) ==
PROVIDERS: Physician Assistant Medical; Emergency Provider Student in an Organized Health Care Education/Training Program; PCP General Practice
DX: S30.1XXA Contusion of abdominal wall, initial encounter (principal); E83.42 Hypomagnesemia; R53.1 Weakness; W18.39XA Other fall on same level, initial encounter; Z91.81 History of falling; Y93.89 Activity, other specified; Y92.099 Unspecified place in other non-institutional residence as the place of occurrence of the external cause; Y99.8 Other external cause status; Z79.01 Long term (current) use of anticoagulants; Z79.899 Other long term (current) drug therapy
CPT/HCPCS: 36415; 70450; 71260; 72125; 74177; 80053; 81001; 83735; 84484; 85025; 85610; 93005; 96365; 96375; 99285; J0131; J3475; Q9967

== ENCOUNTER → 2025-02-12 15:52 | Outpatient (BNV) | payer OTHER, SELFPAY | PROVIDERS: Emergency Provider Student in an Organized Health Care Education/Training Program; PCP General Practice; Visit Provider Radiology Vascular & Interventional Radiology | DX: R07.89 Other chest pain (principal); S09.90XA Unspecified injury of head, initial encounter; R52 Pain, unspecified; W19.XXXA Unspecified fall, initial encounter; Z79.01 Long term (current) use of anticoagulants | CPT/HCPCS: 70450; 71260; 72125; 74177 ==

== ENCOUNTER → 2025-02-12 15:53 | Outpatient (BNV) | payer OTHER, SELFPAY | PROVIDERS: Emergency Provider Student in an Organized Health Care Education/Training Program; PCP General Practice; Visit Provider Internal Medicine | DX: R53.1 Weakness (principal) | CPT/HCPCS: 93010 ==

== ENCOUNTER 2025-02-27 15:25 | Emergency (ER) | payer OTHER, SELFPAY ==
--- NOTE | ~2025-02-27 | CT_ITS ---
CLINICAL HISTORY: trauma CT cervical spine without contrast Comparison: CT/SR - CT CERVICAL SPINE WO IV CON - 02/12/25 17:29 EDT Findings: C5-6: Mild DJD. Grade 1 retrolisthesis C5 over C6. No significant degenerative change. No acute fractures or dislocations. Visualized intracranial contents are unremarkable. No cervical fluid collections or masses. No consolidation or effusion at the lung apices. C1-2: Bprk-xq-ryycuzyd anterior osteoarthrosis of the mwhb-fc-tnvpgjtb mineralized pannus formation surrounding the odontoid. IMPRESSION: 1. Grade 1 retrolisthesis of C5 over C6. 2. 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 3. No acute cervical spine fracture or dislocation. This document has been electronically signed by: Saeed Mcmahon MD on 02/27/2025 19:00:13
--- NOTE | ~2025-02-27 | CT_ITS ---
CLINICAL HISTORY: fall, right sided pain CT chest with contrast Comparison: CT/SR - CT CHEST W IV CON - 02/12/2025 08:01 PM EDT Findings: Calcified coronary atherosclerotic disease. The visualized thyroid and mediastinum are unremarkable. Bibasilar dependent subsegmental atelectasis. Prior cholecystectomy. Hepatic steatosis. No acute fractures. Prior sternotomy. Right posterior 10th rib fracture. Mild osteopenia. IMPRESSION: 1. Right posterior 10th rib fracture. 2. No acute intrathoracic findings. This document has been electronically signed by: Saeed Mcmahon MD on 02/27/2025 19:05:42
--- NOTE | ~2025-02-27 | CT_ITS ---
CLINICAL HISTORY: right flank pain CT abdomen and pelvis with contrast Comparison: CT/REG/SR - CT ABDOMEN PELVIS W IV CON - 02/12/25 20:01 EDT Findings: No consolidation or effusion. Prior cholecystectomy. There is diffuse fecal material seen throughout the colon. In the cecum there are multiple subcentimeter oval radiopaque foreign object most likely medicinal tablets. Calcified coronary atherosclerotic disease. Moderate calcified atherosclerotic disease of the abdominal aorta. The appendix not grossly identified. The uterus is moderately atrophic. No acute fracture. Moderate bladder distension at time of imaging. Prior sternotomy. Moderate osteopenia. IMPRESSION: 1. Constipation. 2. Prior cholecystectomy. 3. Moderate bladder distention at time of imaging. This document has been electronically signed by: Saeed Mcmahon MD on 02/27/2025 18:59:48
--- NOTE | ~2025-02-27 | CT_ITS ---
CLINICAL HISTORY: head injury CT head without contrast Comparison: CT/SR - CT HEAD/BRAIN WO IV CON - 02/12/25 17:29 EDT Findings: No intra-axial mass, midline shift, hydrocephalus, or acute hemorrhage. Mild heterogeneous low attenuation in the periventricular white matter. Mild cerebral atrophy. Moderate to severe calcified atherosclerotic disease of the cavernous portion of the internal carotid arteries. The visualized paranasal sinuses and mastoid air cells are normal. The orbits are within normal limits. No skull fracture. IMPRESSION: 1. Mild chronic periventricular microvascular ischemic disease. 2. Mild cerebral atrophy. 3. Moderate to severe calcified atherosclerotic disease of the cavernous internal carotid arteries. 4. No acute intracranial findings. This document has been electronically signed by: Saeed Mcmahon MD on 02/27/2025 19:06:21
[2025-02-27 15:53] VITALS: BP 155/83; BP 174/89; PULSE 75; PULSE 82; RESP 19; TEMP 36.4; O2SAT 97; O2SAT 99; BMI 24.7
--- NOTE | 2025-02-27 16:51 | ED.HA ---
HPI - Headache General Chief Complaint: Headache Stated Complaint: Headache & dizziness increased post fall wednesday Time Seen by Provider: 02/27/25 16:11 History of Present Illness HPI Narrative: Patient is a 69-year-old female presents today with having right-sided pain. Patient normally ambulates with a walker. She claims her legs gave way. Which has happened in the past. Denies any chest pain or diaphoresis and might have fallen. Complaining of pain to the right side again. Patient was seen 2 weeks prior had a full body scan at that time. Now complaining of the same pain in the right flank area now also complaining of headache on the left occipital area. Denies any changes in vision denies any focal weakness. Patient is compliant with medication. She is currently on Xarelto. Interestingly she is on it twice a day. Patient denies any irregular heartbeat in the past. There is no fever no chills. There is no coughing no congestion. There is no pain on urination. She also has a history of diabetes. Patient claims she has been taking all her meds including her blood pressure medications. Related Data Home Medications ?Medication ?Instructions ?Recorded ?Confirmed atorvastatin 80 mg tablet 80 mg PO DAILY 02/12/20 12/28/24 aspirin 81 mg tablet,delayed 81 mg PO DAILY 07/10/20 12/28/24 release (Adult Low Dose Aspirin) metoprolol tartrate 25 mg tablet 1 tab PO BID 03/16/21 12/28/24 sertraline 50 mg tablet 50 mg PO DAILY 12/09/22 01/03/25 duloxetine 20 mg capsule,delayed 20 mg PO DAILY 10/22/23 12/28/24 release furosemide 20 mg tablet 20 mg PO DAILY 10/22/23 12/28/24 lisinopril 40 mg tablet 40 mg PO DAILY 10/22/23 12/28/24 loratadine 10 mg tablet 10 mg PO DAILY 10/22/23 12/28/24 magnesium oxide 400 mg (241.3 mg 400 mg PO QAM 10/22/23 12/28/24 magnesium) tablet rivaroxaban 2.5 mg tablet (Xarelto) mg PO 10/22/23 12/28/24 empagliflozin 10 mg tablet 10 mg PO DAILY 12/28/24 12/28/24 (Jardiance) ferrous gluconate 324 mg (38 mg 324 mg PO QAM 12/28/24 12/28/24 iron) tablet metformin 500 mg tablet,extended 1,000 mg PO BID 12/28/24 12/28/24 release 24 hr pilocarpine HCl 5 mg tablet 5 mg PO TID 12/28/24 12/28/24 hydroxyzine HCl 25 mg tablet 25 mg PO BID PRN 01/03/25 01/03/25 Previous Rx's ?Medication ?Instructions ?Recorded hydrocodone 5 mg-acetaminophen 325 1 tab PO Q8H PRN pain #15 tabs 11/06/23 mg tablet sennosides 8.6 mg tablet (senna) 17.2 mg (2 x 8.6 mg) PO BEDTIME 09/19/24 PRN for constipation #180 tabs acetaminophen 650 mg 650 mg PO Q8H PRN pain #30 tabs 10/28/24 tablet,extended release (Tylenol Arthritis Pain) omeprazole 40 mg capsule,delayed 40 mg PO DAILY #90 caps 12/04/24 release amitriptyline 50 mg tablet 100 mg (2 x 50 mg) PO BEDTIME 90 12/27/24 days #180 tabs lidocaine 5 % topical patch 1 patch topical DAILY #30 ea 12/28/24 linaclotide 145 mcg capsule 145 mcg PO QAM 30 days #30 caps 12/28/24 (Linzess) gabapentin 600 mg tablet 600 mg PO QID 90 days #360 tabs 01/03/25 memantine 5 mg tablet (Namenda) 5 mg PO BID 30 days #60 tabs 01/03/25 trazodone 100 mg tablet 100 mg PO BEDTIME 90 days #90 tabs 01/03/25 docusate sodium 100 mg capsule 100 mg PO DAILY #90 caps 02/13/25 lidocaine 4 % topical patch 1 patch topical DAILY PRN pain #10 02/27/25 (Lidocaine Pain Relief) ea Allergies Allergy/AdvReac Type Severity Reaction Status Date / Time cortisone (CORTISONE) Allergy Intermediate RASH Verified 02/27/25 15:56 hydrocortisone Allergy Intermediate Rash Verified 02/27/25 15:56 morphine (Morphine) Allergy Intermediate RASH, Verified 02/27/25 15:56 ITCHING oxycodone (From Percocet) Allergy Intermediate Nausea and Verified 02/27/25 15:56 Vomiting Penicillins Allergy Intermediate ITCHING Verified 02/27/25 15:56 sulfamethoxazole (From Allergy Intermediate Rash Verified 02/27/25 15:56 Bactrim) trimethoprim (From Bactrim) Allergy Intermediate Rash Verified 02/27/25 15:56 acetaminophen (From Percocet) Allergy Mild Unknown Verified 02/27/25 15:56 azithromycin Allergy Mild Unknown Verified 02/27/25 15:56 doxycycline Allergy Mild Unknown Verified 02/27/25 15:56 tramadol Allergy Mild Unknown Verified 02/27/25 15:56 tylenol codeine Allergy Mild Unknown Uncoded 02/27/25 15:56 Review of Systems Review of Systems: Positive headache on the left occipital area not associated with nausea vomiting. Positive pain to the right flank area PMFSH Past Medical History Attestation statement: The following information was validated with the patient. Medical History Anemia Rheumatic arteritis Neuropathy History of heart attack Diabetes Pancreatic insufficiency GERD (gastroesophageal reflux disease) Surgical History History of open heart surgery Hx of cardiac catheterization Hx of heart artery stent Hx of colonoscopy History of esophagogastroduodenoscopy (EGD) History of bilateral carpal tunnel release History of cholecystectomy H/O colonoscopy with polypectomy Family History Family History Father No problems noted. Mother No problems noted. Brother No problems noted. Sister Breast cancer Lymphoma Sister No problems noted. Sister No problems noted. Sister No problems noted. Social History Social History Household Members: None Are you a primary child care sitter to a significant other at home: No Do you presently have visiting nurse or other home services: No Alcohol intake: never Patient Tobacco Use Status: Never used Tobacco Advance Directives: No Advance Directives Information Provided: No Do you have a plan to hurt others: No Plan Current occupational status: unemployed and disabled Physical Exam Exam: Exam: Appearance: Alert. Oriented X3. No acute distress. Eyes: Pupils equal, round and reactive to light. ENT: Pharynx normal. Neck: Normal inspection. Neck supple. No lymph nodes noted. No crepitus CVS: Normal heart rate and rhythm. Pulses normal. Normal S1 and S2 Respiratory: No respiratory distress. Breath sounds normal. No Wheezing. No rales. There is no chest wall tenderness is no crepitus on palpation Abdomen: Soft and nontender. No rigidity. No distention. good BS x4. Mild flank pain on the right side. Slight bruising noted. Older in age. Skin: Skin warm and dry. Normal skin color. Normal skin turgor. Extremities: No lower extremity edema. Neurovascular intact to all extremities. No Lacerations. No Rash Neuro: Oriented X 3. No motor deficit. No sensory deficit. Moving all extermities. No slurred speech Vital Signs: Vital Signs: Last Vital Signs Temp 97.5 F 02/27/25 15:53 Pulse 65 02/27/25 17:35 Resp 16 02/27/25 17:35 BP 161/77 H 02/27/25 17:35 Pulse Ox 97 02/27/25 17:35 O2 Del Method Room Air 02/27/25 17:35 BMI result Body Mass Index 24.7 Medications Administered Discontinued Medications Generic Name Dose Route Start Last Admin Trade Name Harsh PRN Reason Stop Dose Admin Diphenhydramine HCl 25 mg 02/27/25 16:47 02/27/25 17:35 Diphenhydramine Hcl 50 Mg/Ml Vial IVPUSH 02/27/25 16:48 25 mg ONCE ONE Administration Sodium Chloride 500 mls @ 999 mls/hr 02/27/25 17:00 02/27/25 18:31 Ns IV 02/27/25 17:30 Infused .Q31M STEVEN Infusion Iohexol 100 ml 02/27/25 17:58 02/27/25 17:58 Iohexol 350 Mg/Ml 100 Ml Infus..Btl IV 02/27/25 17:59 85 ml ONCE ONE Administration Metoclopramide HCl 10 mg 02/27/25 16:47 02/27/25 17:35 Metoclopramide Hcl 10 Mg/2 Ml Vial IVPUSH 02/27/25 16:48 10 mg ONCE ONE Administration Medical Decision Making Medical Decision Making MDM Narrative: Patient complaining of headache on 1 side. Currently on Xarelto. Question why she is on Xarelto twice a day nevertheless. Patient had a question 2nd fall. CT scan of the head C-spine chest abdomen pelvis was done. My interpretation of the CT head was grossly negative. No evidence of bleeding. CT cervical spine showed no evidence of fracture or malalignment. CT abdomen pelvis positive for constipation only. CT chest showed 10th rib fracture. Likely the cause of patient's pain in her flank area. Patient's sed rate is 23 less than 50 no evidence for temporal arteritis. Patient is hemoglobin is normal 10.9 headache not associated with fever has been ongoing unlikely secondary to meningitis CT head negative unlikely to have a bleed urine showed no signs of infection. Case was discussed with patient's son. The only significant finding is the rib fracture. Will attempt to use lidocaine patches. Have patient follow-up on an outpatient basis. Elected not to use additional narcotic because of fall risk. Currently in stable condition. Will discharge home Differential Diagnosis Differential Diagnoses: The differential diagnosis associated with the presentation includes Intracranial bleed, traumatic injury to the chest abdomen pelvis, infection, temporal arteritis Admission/Observation Consideration of admission/observation: Escalation of care including admission/observation considered Considered admission but workup negative patient ambulated well in no distress will discharge home Lab Data MDM Lab Attestation statement: I reviewed the patient's lab results. 02/27/25 17:08 02/27/25 17:08 Labs: Lab Results 02/27/25 02/27/25 Range/Units 17:08 18:29 WBC 8.9 (4.8-10.8) X10*3/uL RBC 3.85 L (4.20-5.50) X10*6/uL Hgb 10.9 L (12.0-16.0) g/dl Hct 34.2 L (37.0-47.0) % MCV 88.8 (80.0-98.0) fL MCH 28.3 (27.0-33.0) pg MCHC 31.9 (31.0-35.0) g/dl RDW 15.5 (11.0-16.0) % Plt Count 284 (160-400) X10*3/uL MPV 11.3 (9.4-12.3) fL Immature Gran % (Auto) 0.4 (0.0-0.4) % Neut % (Auto) 58.4 (45-73) % Lymph % (Auto) 25.0 (20-40) % [place] % (Auto) 9.6 (2-11) % Eos % (Auto) 5.6 H (0-4) % Baso % (Auto) 1.0 (0-2) % Lymph # (Auto) 2.2 (1.2-4.9) X10*3/uL [place] # (Auto) 0.9 (0.1-1.2) X10*3/uL Eos # (Auto) 0.5 H (0.0-0.4) X10*3/uL Baso # (Auto) 0.1 (0.0-0.2) X10*3/uL Abs Immat Gran (auto) 0.04 H (0.00-0.03) X10*3/uL Absolute Neuts (auto) 5.2 (2.0-8.3) x10*3/uL Absolute Nucleated RBC 0.000 (0.0-0.012) X10*3/uL Nucleated RBC % (auto) 0.0 (0.0-0.2) /100WBC ESR 23 H (0-20) MM/HR Hold Purple Top SEE NOTE Sodium 140 (135-145) mmol/L Potassium 4.1 (3.3-5.1) mmol/L Chloride 102 (96-108) mmol/L Carbon Dioxide 28 (22-29) mmol/L Anion Gap 14 (12-20) BUN 21 H (9-16) mg/dL Creatinine 0.98 (0.5-1.4) mg/dL Estim Creat Clear Calc 45.3 Estimated GFR 56 Random Glucose 120 H (60-115) mg/dL Calcium 9.7 (8.4-10.2) mg/dL Total Bilirubin 0.3 (0.0-1.0) mg/dL Direct Bilirubin 0.1 (0.0-0.5) mg/dL AST 35 H (5-31) U/L ALT 24 (0-31) U/L Alkaline Phosphatase 158 H (39-117) U/L Troponin I High Sens < 2.7 (<3.5-17.0) ng/L C-Reactive Protein 0.15 (< or = 0.50) mg/dL Total Protein 7.4 (6.5-8.0) g/dL Albumin 4.3 (3.5-5.0) g/dL Lipase 38 (8-78) U/L Urine Color Yellow Urine Appearance Clear Urine pH 7.5 (5.0-9.0) Ur Specific [place] 1.020 (1.005-1.025) Urine Protein Negative (Neg-Trace) mg/dL Urine Glucose (UA) >=1000 H (Negative) mg/dL Urine Ketones Negative (Negative) mg/dL Urine Blood Negative (Negative) Urine Nitrite Negative (Negative) Ur Leukocyte Esterase Negative (Negative) Urine RBC 0-2 (0-2) /HPF Urine WBC 0-5 (0-5) /HPF Ur Squamous Epith Cells 0-2 (0-2) /HPF Urine Bacteria None Seen (None Seen) Hyaline Casts 0-2 (0-2) /LPF Independent Interpretation I performed an independent interpretation of an: CT Scan (CT head negative) Radiology Impression Discussion of test interpretation with radiology: I have reviewed the radiologist's reading. External Record Review External record reviewed: Inpatient record Chronic Conditions Dementia history of headaches history of being on anticoagulation Social Determinants Patient?s care significantly limited by Social Determinants of Health including: Problems related to primary support group Discharge Plan Discharge Clinical Impression: Headache, Fracture of rib Patient Disposition: Home, Self-Care Instructions: Rib Fracture (ED) Prescriptions: New lidocaine [Lidocaine Pain Relief] 4 % adhesive patch,medicated 1 patch topical DAILY PRN (Reason: pain) Qty: 10 0RF No Action hydrocodone-acetaminophen 5-325 mg tablet 1 tab PO Q8H PRN (Reason: pain) Qty: 15 0RF Rx Instructions: Partial Fill upon patient request. sennosides [senna] 8.6 mg tablet 17.2 mg PO BEDTIME PRN (Reason: for constipation) Qty: 180 1RF omeprazole 40 mg capsule,delayed release(DR/EC) 40 mg PO DAILY Qty: 90 1RF amitriptyline 50 mg tablet 100 mg PO BEDTIME 90 Days Qty: 180 0RF docusate sodium 100 mg capsule 100 mg PO DAILY Qty: 90 1RF metoprolol tartrate 25 mg tablet 1 tab PO BID acetaminophen [Tylenol Arthritis Pain] 650 mg tablet extended release 650 mg PO Q8H PRN (Reason: pain ) Qty: 30 0RF magnesium oxide 400 mg (241.3 mg magnesium) tablet 400 mg PO QAM furosemide 20 mg tablet 20 mg PO DAILY lisinopril 40 mg tablet 40 mg PO DAILY loratadine 10 mg tablet 10 mg PO DAILY duloxetine 20 mg capsule,delayed release(DR/EC) 20 mg PO DAILY Xarelto 2.5 mg tablet PO atorvastatin 80 mg tablet 80 mg PO DAILY aspirin [Adult Low Dose Aspirin] 81 mg tablet,delayed release (DR/EC) 81 mg PO DAILY sertraline 50 mg tablet 50 mg PO DAILY pilocarpine HCl 5 mg tablet 5 mg PO TID Jardiance 10 mg tablet 10 mg PO DAILY metformin 500 mg tablet extended release 24 hr 1,000 mg PO BID ferrous gluconate 324 mg (38 mg iron) tablet 324 mg PO QAM lidocaine 5 % adhesive patch,medicated 1 patch topical DAILY Qty: 30 0RF Rx Instructions: leave on most painful area for up to 12 hrs Linzess 145 mcg capsule 145 mcg PO QAM 30 Days Qty: 30 3RF hydroxyzine HCl 25 mg tablet 25 mg PO BID PRN gabapentin 600 mg tablet 600 mg PO QID 90 Days Qty: 360 1RF trazodone 100 mg tablet 100 mg PO BEDTIME 90 Days Qty: 90 1RF memantine [Namenda] 5 mg tablet 5 mg PO BID 30 Days Qty: 60 1RF Referrals: Shawna Gamble MD [Primary Care Provider, Internal Medicine] - 03/01/25 Print Language: Serbian
[2025-02-27 17:21] LABS: MANUAL DIFF FLAG NO
[2025-02-27 17:29] LABS: Hematocrit 34.2 % (37.0-47.0); Hemoglobin 10.9 g/dl (12.0-16.0); Imm Gran Abs Auto 0.04 X10*3/uL (0.00-0.03); Imm Gran Pct Auto 0.4 % (0.0-0.4); Lymphocytes Absolute Auto 2.2 X10*3/uL (1.2-4.9); Mean Corpuscular HGB Conc 31.9 g/dl (31.0-35.0); Mean Corpuscular Hemoglobin 28.3 pg (27.0-33.0); Mean Corpuscular Volume 88.8 fL (80.0-98.0); NRBC Abs Auto 0.000 X10*3/uL (0.0-0.012); NRBC Pct Auto 0.0 /100WBC (0.0-0.2); Platelet Count 284 X10*3/uL (160-400); Red Blood Count 3.85 X10*6/uL (4.20-5.50); White Blood Count 8.9 X10*3/uL (4.8-10.8)
[2025-02-27 17:35] VITALS: BP 161/77; PULSE 65; RESP 16; O2SAT 97
[2025-02-27 17:42] LABS: Alanine Aminotransferase 24 U/L (0-31); Albumin Level 4.3 g/dL (3.5-5.0); Alkaline Phosphatase 158 U/L (39-117); Anion Gap 14 (12-20); Aspartate Amino Transferase 35 U/L (5-31); Blood Urea Nitrogen 21 mg/dL (9-16); Calcium 9.7 mg/dL (8.4-10.2); Carbon Dioxide 28 mmol/L (22-29); Chloride 102 mmol/L (96-108); Creatinine Clr Calc Pharmacy 45.3; Estimated Glomerular Filt Rate 56; Lipase 38 U/L (8-78); Potassium 4.1 mmol/L (3.3-5.1); Sodium 140 mmol/L (135-145); Total Protein 7.4 g/dL (6.5-8.0)
[2025-02-27 17:50] LABS: Troponin-I High Sensitivity < 2.7 ng/L (<3.5-17.0)
[2025-02-27] MEDS: iohexoL 350 MG/ML 100 ML INFUS..BTL IV (17:58)
--- NOTE | 2025-02-27 18:08 | ECG_ITS ---
Test Reason : FALL Blood Pressure : */* mmHG Vent. Rate : 71 BPM Atrial Rate : 71 BPM P-R Int : 168 ms QRS Dur : 96 ms QT Int : 424 ms P-R-T Axes : 29 45 23 degrees QTcB Int : 460 ms Normal sinus rhythm with sinus arrhythmia Normal ECG No previous ECGs available Referred By: Selena Galo Electronically Signed By: Nicko Carney
--- OUTSIDE RECORDS SUMMARY | 2025-02-27 18:34 | XMS_ITS | Encounter Summary ---
Author Organization [employer] Address [address] [facility] 7[address] [place] [address] Care Team Providers Care Phone Specialist Name Role Phone Shawna Gamble MD Primary Care Provider [phone] Reason for Visit * Reason Onset Date Comments nov recall 02/22/2025 Encounter Details Date Type Department Care Team ([facility] Contact Info) Description 02/22/2025 Telephone [facility] [address] [place], [place] [phone] Shawna Gamble MD [address] [place] [address] nov recall Social History Tobacco Use Types Packs/Day Years [...] encounter Miscellaneous Notes * Telephone Encounter - Jeronimo Vidal [place] - 02/22/2025 9:17 AM EDT Telephone call to patient to schedule a recall appointment. No answer, Left voicemail to return call to clinic.. Recall letter sent. Visit type: Office visit Appointment notes: follow up Month due: April With: Tye Please schedule appointment above if patient returns call documented in this encounter Plan of Treatment Upcoming Encounters Date Type Department Care Team (Late st Contact Info) Description 03/02/2025 11:00 AM EDT Medication Management [facility] [address] [place] [address] Apurva Corona, PharmD [address] [place] [address] documented as of this encounter Visit Diagnoses Not on filedocumented in this encounter Additional Health Concerns Assessment Noted Time PHQ-9 Depression Total Score: 6 10/19/19 25 11:41 AM EDT documented as of this encounter Care Teams Phone Specialist Relationship Specialty Start Date End Date Shawna Gamble MD [address] [place] [address] PCP - General Family Medicine 05/13/22 [email or web address] 01/22/25 documented as of this encounter
--- OUTSIDE RECORDS SUMMARY | 2025-02-27 18:34 | XMS_ITS | Encounter Summary ---
Author Organization [employer] Address [address] [place] [address] [address] [place] [address] Care Team Providers Care Die Trouble Shooter Name Role Phone Shawna Gamble MD Primary Care Provider Reason for Visit * Reason Onset Date Comments Durable Medical Equipment 07/03/2022 Encounter Details Date Type Department Care Team ([facility] st Contact Info) Description 07/03/[address] [facility] MED[facility]INE [address] [place], [place] [phone] Shawna Gamble MD [address] [place] [address] Durable Medical Equipment Social History Tobacco Use [...] 07/15/2022 2:22 PM EST Form received from [employer] for bed pads for signature * Telephone [...] 11:00 AM EDT Medication Management [facility] [address] [place] [address] Apurva Corona PharmD [address] [place] [address] documented as of this encounter Visit Diagnoses Not on filedocumented in this encounter Care Teams Die Trouble Shooter Relationship Specialty Start Date End Date Shawna Gamble MD [address] [place] [id number] PCP - General Family Medicine 05/13/22 [email or web address] 01/22/25 documented as of this encounter
--- OUTSIDE RECORDS SUMMARY | 2025-02-27 18:34 | XMS_ITS | Encounter Summary ---
Author Organization [employer] Address [address] [facility] 7t [place] [address] Care Team Providers Care Checkout Operator Name Role Phone Shawna Gamble MD Primary Care Provider [phone] Encounter Details Date Type Department Care Team ([facility] st Contact Info) Description 10/20/2024 Orders Only [facility] [address] [place], [place] [phone] Shawna Gamble MD [address] [place] [address] Hypomagnesemia (Primary Dx) Social History Tobacco Use [...] 11:00 AM EDT Medication Management [facility] [address] [place] [address] Apurva Corona, PharmD [address] [place] [address] Scheduled Orders Name Type Priority Associated Diagnoses Orde r Schedule Magnesium Lab Routine Hypomagnesemia Expected: 10/29/2024, Expires: 10/29/2025 documented as of this encounter Procedures Procedure Name Priority Date/Time Associated Diagnosis Comments MAGNESIUM Routine 10/27/2024 12:45 PM EDT Hypomagnesemia documented in this encounter Results * (ABNORMAL) Magnesium (10/27/2024 12:45 PM EDT) Magnesium 1.3(LL) 1.6 - 2.6 mg/dL [facility] Comment:Critical value for M AG: Results called to and read back by:Preethi Suarez Person calling: NETO Date: 10/27/24 Time: 1414 Blood Venous blood specimen / Unknown 10/27/2024 12:45 PM EDT 10/27/2024 12:45 PM EDT us Shawna Gamble MD LAB BLOOD ORDERABLES Final Res ult [facility] [address] [place] [address] [phone] documented in this encounter Visit Diagnoses Diagnosis Hypomagnesemia- Primary Disorders of magnesium metabolism documented in this encounter Additional Health Concerns Assessment Noted Time PHQ-9 Depression Total Score: 6 10/19/19 11:41 AM EDT documented as of this encounter Care Teams Checkout Operator Relationship Specialty Start Date End Date Shawna Gamble MD [address] [place] [id number] PCP - General Family Medicine 05/13/22 [employer] 01/22/25 documented as of this encounter
--- OUTSIDE RECORDS SUMMARY | 2025-02-27 18:34 | XMS_ITS | Patient Health Record ---
Author Organization [facility] Address [address] [place] [address] Care Team Providers Care Bluing Oven Tender Name Role Phone Anish Santiago MD, Arnulfo Primary Care Provide Chavez Gutierrez Jr Unavailable Allergies Allergen (clinical drug ingredient) Drug/Non Drug Allergy documented on EMR Reaction Allergy Type Onset Date Status Penicillin Unknown Drug Allergy Active Cortisone Unknown Drug Allergy Active acetaminophen / oxycodone Percocet Unknown Drug Allergy Active Morphine Sulfate Unknown Drug Allergy Active sulfamethoxazole [...] 20 MG 1 tablet Orally Once a day; Duration: 28 Active [employer] KwikPen Acti ve Lantus SoloStar Acti ve Dicyclomine HCl 20 MG 1 tablet Orally Fo ur times a day; Duration: 30 day(s) 04/05/2013 05/17/2024 Active Problems Problem Type SNOMED Code ICD Code Onset Dates Problem Status W/U Status Risk Notes Problem Esophageal reflux (068306368) Esophageal reflux (530.81) Active confirmed Problem Epigastric pain (48266703) Abdominal pain, epigastric (789.06) Active confirmed Plan Of Treatment No Information Insurance Providers Payer Name Payer Address Payer Phone Subscriber Number Group Number Insured Name Patient Relationship to Insured Coverage Start Date Coverage End Date [employer] [address] [address] [place], [place] [id number] ABHIJEET TILLEY Self - patient is the insured Medical (General) History Medical History History ICD Code colonoscopy 12-09-2005 Diabetes mellitus type 2 Neuropathy Elevated cholesterol Hypertension Surgical History Surgery Date(Month/Year) Bilateral carpal tunnel release Cholecystectomy
--- OUTSIDE RECORDS SUMMARY | 2025-02-27 18:34 | XMS_ITS | Encounter Summary ---
Author Organization [email or web address] Address [address] [facility] [address]t [place] [address] Care Team Providers Care Straight Edger Name Role Phone Shawna Gamble MD Primary Care Provider [phone] Reason for Visit * Reason Comments Med Refill Encounter Details Date Type Department Care Team ([facility] st Contact Info) Description 02/26/2023 Refill [facility] [address] [place] [address] Shawna Gamble MD [address] [place] [address] Primary insomnia Social History Tobacco Use Types [...] 11:00 AM EDT Medication Management [facility] [address] [place] [address] Apurva Corona, HennyD [address] [place] [address] documented as of this encounter Visit Diagnoses Diagnosis Primary insomnia Persistent disorder of initiating or maintaining sleep documented in this encounter Care Teams Straight Edger Relationship Specialty Start Date End Date Shawna Gamble MD [address] [place] [phone] PCP - General Family Medicine 05/13/22 [employer] 01/22/25 documented as of this encounter
--- OUTSIDE RECORDS SUMMARY | 2025-02-27 18:34 | XMS_ITS | Encounter Summary ---
Author Organization [employer] Address [address] [place] [address] [address] [place] [address] Care Team Providers Care Die Equipment Operator Name Role Phone Shawna Gamble MD Primary Care Provider [phone] Encounter Details Date Type Department Care Team ([facility] st Contact Info) Description 07/10/2022 Orders Only [facility] [address] [place], [place] [phone] Shawna Gamble MD [address] [place] [address] Hypomagnesemia (Primary Dx) Social History Tobacco Use [...] Medication Management [facility] [address] [place] [address] Apurva Corona, PharmD [address] [place] [address] documented as of this encounter Procedures Procedure [...] EDT) Magnesium 1.6 1.6 - 2.6 mg/dL [facility] 12/17/2022 1:12 PM EDT 12/17/2022 1:20 PM EDT us Generic External Data Provider LAB BLOOD ORDERAB LES Final Result [facility] [address] [place] [phone] * (ABNORMAL) Basic Metabolic Panel (12/17/2022 1:12 PM EDT) Sodium 138 135 - 145 mmol/L [facility] Potassium 3.6 3.3 - 5.1 mmol/L [facility] Chloride 101 96 - 108 mmol/L [facility] Carbon Dioxide 24 22 - 29 mmol/L [facility] Anion Gap 17 12 - 20 [facility] Urea Nitrogen (BUN) 12 9 - 16 mg/dL [facility] Creatinine, Serum 0.75 0.5 - 1.4 mg/dL [facility] Estimated Glomerular Filt Rate >60 [facility] Comment:NOTE: For -Am erican individuals, multiply the result by 1.210.Chronic Kidney Disease: Estimated GFR < 60 mL/min/1.01p8Ofqvya Kidney Disease: Estimated GFR < 15 mL/min/1.73m2 Glucose 118(H) 60 - 115 mg/dL [facility] Calcium 10.2 8.4 - 10.2 mg/dL [facility] 12/17/2022 1:12 PM EDT 12/17/2022 1:20 PM EDT [facility] External Provider LAB BLO OD ORDERABLES Final Result Performing Organization Address [facility] Co de Phone Number [facility] [address] [place] [phone] * Vitamin D, 25-Hydroxy, Total, Immunoassay (12/09/2022 12:14 PM EDT) Vitamin D 25-OH Total 57.1 >30 ng/mL [facility] Comment:Health Based Referen ce Values*< 20 ng/mL [id number] ng/mL Insufficient> 30 ng/mL Sufficient*Norma TREVINO. N [...] ORDERAB LES Final Result Performing Organization Address [facility] Co de Phone Number [facility] [address] [place] [phone] * (ABNORMAL) Magnesium (12/09/2022 12:14 PM EDT) Magnesium 1.5(L) 1.6 - 2.6 mg/dL [facility] 12/09/2022 12:1 4 PM EDT 12/09/2022 12:14 PM EDT Generic External Data Provider LAB BLOOD ORDERAB LES Final Result Performing Organization Address [facility] Co de Phone Number [facility] [address] [place] [phone] * Phosphate (As Phosphorus) (12/09/2022 12:14 PM EDT) Phosphorus 3.5 2.7 - 4.5 mg/dL [facility] 12/09/2022 12:1 4 PM EDT 12/09/2022 12:14 PM EDT Generic External Data Provider LAB BLOOD ORDERAB LES Final Result Performing Organization Address [facility] de Phone Number [facility] [address] [place] [phone] * (ABNORMAL) Basic Metabolic Panel (12/09/2022 12:14 PM EDT) Sodium 134(L) 135 - 145 mmol/L [facility] Potassium 4.6 3.3 - 5.1 mmol/L [facility] Chloride 99 96 - 108 mmol/L [facility] Carbon Dioxide 31(H) 22 - 29 mmol/L [facility] Anion Gap 9(L) 12 - 20 [facility] Urea Nitrogen (BUN) 15 9 - 16 mg/dL [facility] Creatinine, Serum 0.87 0.5 - 1.4 mg/dL [facility] Estimated Glomerular Filt Rate >60 [facility] Comment:NOTE: For -Am erican individuals, multiply the result by 1.210.Chronic Kidney Disease: Estimated GFR < 60 mL/min/1.41d8Wvpshr Kidney Disease: Estimated GFR < 15 mL/min/1.73m2 Glucose 273(H) 60 - 115 mg/dL [facility] Calcium 9.4 8.4 - 10.2 mg/dL [facility] 12/09/2022 12:1 4 PM EDT 12/09/2022 12:14 PM EDT [facility] External Provider LAB BLO OD ORDERABLES Final Result Performing Organization Address [facility] Phone Number [facility] [address] [place] [phone] * (ABNORMAL) Magnesium (11/30/2022 4:06 PM EDT) Magnesium 1.3(LL) 1.6 - 2.6 mg/dL [facility] Comment:Critical value for t est(s): MAGS Results called to and readback by: DR SALMON Person calling:[email or web address] Date: [id number]:[id number] 11/30/2022 4:06 PM EDT 11/30/2022 5:44 PM EDT [facility] External Provider LAB BLO OD ORDERABLES Final Result Performing Organization Address [facility] Phone Number [facility] [address] [place] [phone] * TSH (11/30/2022 4:06 PM EDT) Thyroid Stimulating Hormone 1.92 0.32 - 4.0 uIU/mL [facility] Comment:TSH 3rd Generation ( [employer]) 11/30/2022 4:06 PM EDT 11/30/2022 5:44 PM EDT [facility] External Provider LAB BLO OD ORDERABLES Final Result Performing Organization Address [facility] de Phone Number [facility] [address] [place] [phone] * (ABNORMAL) CBC auto differential (11/30/2022 4:06 PM EDT) White Blood Count 7.3 4.8 - 10.8 X10*3/uL [facility] Red Blood Count 3.62(L) 4.20 - 5.50 X10*6/uL [facility] Hemoglobin 10.4(L) 12.0 - 16.0 g/dl [facility] Hematocrit 32.0(L) 37.0 - 47.0 % [facility] Mean Corpuscular Volume 88.4 80.0 - 98.0 fL [facility] Mean Corpuscular Hemoglobin 28.7 27.0 - 33.0 pg [facility] Mean Corpuscular HGB Conc 32.5 31.0 - 35.0 g/dl [facility] Red Cell Distribution Width 19.0(H) 11.0 - 16.0 % [facility] Platelet Count 277 160 - 400 X10*3/uL [facility] Mean Platelet Volume 11.2 9.4 - 12.3 fL [facility] Neutrophils Percent Auto 49.2 45 - 73 % [facility] Imm Gran Pct Auto 0.3 0.0 - 0.4 % [facility] Lymphocytes Percent Auto 36.0 20 - 40 % [facility] Monocytes Percent Auto 11.4(H) 2 - 11 % [facility] Eosinophils Percent Auto 2.1 0 - 4 % [facility] Basophils Percent Auto 1.0 0 - 2 % [facility] NRBC Pct Auto 0.0 0.0 - 0.2 /100WBC [facility] Neutrophils Absolute Auto 3.6 2.0 - 8.3 x10*3/uL [facility] Imm Gran Abs Auto 0.02 0.00 - 0.03 X10*3/uL [facility] Lymphocytes Absolute Auto 2.6 1.2 - 4.9 X10*3/uL [facility] Monocytes Absolute Auto 0.8 0.1 - 1.2 X10*3/uL [facility] Eosinophils Absolute Auto 0.2 0.0 - 0.4 X10*3/uL [facility] Basophils Absolute Auto 0.1 0.0 - 0.2 X10*3/uL [facility] NRBC Abs Auto 0.000 0.0 - 0.012 X10*3/uL [facility] 11/30/2022 4:06 PM EDT 11/30/2022 5:44 PM EDT us [facility] External Provider LAB BLO OD ORDERABLES Final Result [facility] [address] [place] [phone] * T-SPOT??.TB (10/30/2022 9:18 AM EDT) [facility] T Spot TB Negative Negative [facility] Comment:A negative test resu lt [...] as aquantitative test. TS PANEL A 0 [facility] TS PANEL B 0 [facility] Negative Control Passed [facility] Positive Control Passed [facility] Comment:For additional infor gabriela, please refer [email or web address](This link is being provided for informational/educational purposes only.)THIS TEST WAS PERFORMED AT:[employer] [id number] [place] [id number] ROBERT MD,PHD 10/30/2022 9:18 AM EDT 10/30/2022 9:18 AM EDT [facility] External Provider LAB BLO OD ORDERABLES Final Result Performing Organization Address [facility] Co de Phone Number [facility] [address] [place] [phone] * Hepatitis B surface antigen, EIA (10/30/2022 9:18 AM EDT) Hepatitis B Surface Ag Negative Negative [facility] 10/30/2022 9:18 AM EDT 10/30/2022 9:18 AM EDT [facility] External Provider LAB BLO OD ORDERABLES Final Result Performing Organization Address [facility] Co de Phone Number [facility] [address] [place] [phone] * HIV Ab/Ag ([facility]) (10/30/2022 9:18 AM EDT) HIV AB/AG Nonreactive Nonreactive [facility] Comment:HIV-1 p24 Ag and/or HIV-1/HIV-2 Ab not detected.A test result that is nonreactive does not exclude thepossibility of exposure to or infection with HIV-1 and/orHIV-2. Nonreactive results in this assay for individualswith prior exposure to HIV-1 and/or HIV-2 may be due toantigen and antibody levels that are below the limit ofdetection of this assay.[employer] HIV Ag/Ab Combo assay result andsupplemental assay results should be interpreted inconjunction with the patient's clinical presentation,history and other laboratory results. If the results areinconsistent with clinical evidence, additional testing issuggested to confirm the result. 10/30/2022 9:18 AM EDT 10/30/2022 9:18 AM EDT [facility] External Provider LAB BLO OD ORDERABLES Final Result Performing Organization Address [facility] Co de Phone Number [facility] [address] [place] [phone] * Hepatitis C Ab (10/30/2022 9:18 AM EDT) Hepatitis C Antibody Nonreactive Nonreactive [facility] Comment:Antibodies to HCV no t detected; does not exclude early acuteHCV infection. 10/30/2022 9:18 AM EDT 10/30/2022 9:18 AM EDT [facility] External Provider LAB BLO OD ORDERABLES Final Result Performing Organization Address [facility] Co de Phone Number [facility] [address] [place] [phone] * Hepatitis B Core Antibody, Total (10/30/2022 9:18 AM EDT) Hepatitis B Core Antibody Nonreactive Nonreactive [facility] 10/30/2022 9:18 AM EDT 10/30/2022 9:18 AM EDT [facility] External Provider LAB BLO OD ORDERABLES Final Result Performing Organization Address [facility] Co de Phone Number [facility] [address] [place] [phone] * Hepatitis B Surface Antibody, Qualitative (10/30/2022 9:18 AM EDT) ~Hepatitis B Surface Antibody NONREACTIVE Nonreactive [facility] Comment:Nonreactive: < 8.00 mIU/mL 10/30/2022 9:18 AM EDT 10/30/2022 9:18 AM EDT [facility] External Provider LAB BLO OD ORDERABLES Final Result Performing Organization Address [facility] Co de Phone Number [facility] [address] [place] [phone] * Vitamin B12/Folate, Serum Panel (10/30/2022 9:18 AM EDT) Vitamin B12 546 200 - 900 pg/mL [facility] Comment:NORMAL 200-900 PG/ML INDETERMINATE 160-199 PG/ML DEFICIENT < 160 PG/ML Folate 11.6 > or = 4.0 ng/mL [facility] Comment:Reference Values:> o r = 4.0 ng/mL< 4.0 ng/mL suggests folate deficiency Methotrexate, aminopterin and folinic acid(leucovorin) are chemotherapeutic agents whose molecularstructures are similar to folate; therefore, the Architectfolate assay cannot be used for patients using these drugs. 10/30/2022 9:18 AM EDT 10/30/2022 9:18 AM EDT [facility] External Provider LAB BLO OD ORDERABLES Final Result Performing Organization Address [facility] Co de Phone Number [facility] [address] [place] [phone] * Prealbumin (10/30/2022 9:18 AM EDT) Prealbumin 26.0 20 - 40 mg/dL [facility] 10/30/2022 9:18 AM EDT 10/30/2022 9:18 AM EDT [facility] External Provider LAB BLO OD ORDERABLES Final Result Performing Organization Address [facility] Co de Phone Number [facility] [address] [place] [phone] * (ABNORMAL) Comprehensive Metabolic Panel (10/30/2022 9:18 AM EDT) Sodium 137 135 - 145 mmol/L [facility] Potassium 3.8 3.3 - 5.1 mmol/L [facility] Chloride 102 96 - 108 mmol/L [facility] Carbon Dioxide 22 22 - 29 mmol/L [facility] Anion Gap 17 12 - 20 [facility] Urea Nitrogen (BUN) 10 9 - 16 mg/dL [facility] Creatinine, Serum 0.90 0.5 - 1.4 mg/dL [facility] Estimated Glomerular Filt Rate >60 [facility] Comment:NOTE: For -Am erican individuals, multiply the result by 1.210.Chronic Kidney Disease: Estimated GFR < 60 mL/min/1.74g8Fnlkxd Kidney Disease: Estimated GFR < 15 mL/min/1.73m2 Glucose 134(H) 60 - 115 mg/dL [facility] Calcium 10.0 8.4 - 10.2 mg/dL [facility] Bilirubin, Total 0.5 0.0 - 1.0 mg/dL [facility] Aspartate Amino Transferase 51(H) 5 - 31 U/L [facility] Alanine Aminotransferase 32(H) 0 - 31 U/L [facility] Total Protein 6.9 6.5 - 8.0 g/dL [facility] Albumin Level 3.8 3.5 - 5.0 g/dL [facility] Alkaline Phosphatase 51 39 - 117 U/L [facility] 10/30/2022 9:18 AM EDT 10/30/2022 9:18 AM EDT us [facility] External Provider LAB BLO OD ORDERABLES Final Result [facility] [address] [place], [place] [phone] * (ABNORMAL) Ferritin (08/31/2022 7:32 AM EDT) Ferritin 299(H) 10 - 250 ng/mL [facility] 08/31/2022 7:32 AM EDT 08/31/2022 7:32 AM EDT [facility] External Provider LAB BLO OD ORDERABLES Final Result Performing Organization Address [facility] Co de Phone Number [facility] [address] [place] [phone] * B Type Natriuretic Peptide (BNP) (08/31/2022 7:32 AM EDT) Pathologist [facility] B Type Natriuretic Peptide 68 <100 pg/mL [facility] Comment:For those patients w ho are being treated with Natrecor(nesiritide, recombinant BNP), BNP testing should beperformed at least two hours post treatment in order toensure that only endogenous levels of BNP are detected. 08/31/2022 7:32 AM EDT 08/31/2022 7:32 AM EDT [facility] External Provider LAB BLO OD ORDERABLES Final Result Performing Organization Address [facility] Co de Phone Number [facility] [address] [place] [phone] * (ABNORMAL) Lipase (08/31/2022 7:32 AM EDT) Pathologist [facility] Lipase 154(H) 8 - 78 U/L [facility] 08/31/2022 7:32 AM EDT 08/31/2022 7:32 AM EDT [facility] External Provider LAB BLO OD ORDERABLES Final Result Performing Organization Address [facility] Co de Phone Number [facility] [address] [place] [phone] * Iron And Total Iron Binding Capacity (08/31/2022 7:32 AM EDT) Pathologist [facility] Iron 36 30 - 160 mcg/dL [facility] Total Iron Binding Capacity 229 228 - 428 mcg/dL [facility] Percent Iron Saturation 16 15 - 50 % [facility] Unsaturated Iron Binding 193 ug/dL [facility] 08/31/2022 7:32 AM EDT 08/31/2022 7:32 AM EDT [facility] External Provider LAB BLO OD ORDERABLES Final Result Performing Organization Address [facility] Co de Phone Number [facility] [address] [place] [phone] * (ABNORMAL) Basic Metabolic Panel (08/31/2022 7:32 AM EDT) Sodium 138 135 - 145 mmol/L [facility] Potassium 3.8 3.3 - 5.1 mmol/L [facility] Chloride 102 96 - 108 mmol/L [facility] Carbon Dioxide 20(L) 22 - 29 mmol/L [facility] Anion Gap 20 12 - 20 [facility] Urea Nitrogen (BUN) 6(L) 9 - 16 mg/dL [facility] Creatinine, Serum 0.85 0.5 - 1.4 mg/dL [facility] Estimated Glomerular Filt Rate >60 [facility] Comment:NOTE: For -Am erican individuals, multiply the result by 1.210.Chronic Kidney Disease: Estimated GFR < 60 mL/min/1.42w5Uqvnah Kidney Disease: Estimated GFR < 15 mL/min/1.73m2 Glucose 137(H) 60 - 115 mg/dL [facility] Calcium 9.1 8.4 - 10.2 mg/dL [facility] 08/31/2022 7:32 AM EDT 08/31/2022 7:32 AM EDT [facility] External Provider LAB BLO OD ORDERABLES Final Result Performing Organization Address [facility]/ZIP Co de Phone Number [facility] [address] [place] [phone] * (ABNORMAL) Hepatic Function Panel (08/31/2022 7:32 AM EDT) Pathologist [facility] Bilirubin, Total 0.4 0.0 - 1.0 mg/dL [facility] Bilirubin, Direct 0.2 0.0 - 0.5 mg/dL [facility] Aspartate Amino Transferase 17 5 - 31 U/L [facility] Alanine Aminotransferase 8 0 - 31 U/L [facility] Total Protein 6.8 6.5 - 8.0 g/dL [facility] Albumin Level 3.8 3.5 - 5.0 g/dL [facility] Alkaline Phosphatase 120(H) 39 - 117 U/L [facility] 08/31/2022 7:32 AM EDT 08/31/2022 7:32 AM EDT [facility] External Provider LAB BLO OD ORDERABLES Final Result Performing Organization Address City/State/[facility] Co de Phone Number [facility] [address] [place] [phone] * (ABNORMAL) CBC auto differential (08/31/2022 7:32 AM EDT) Pathologist [facility] White Blood Count 12.4(H) 4.8 - 10.8 X10*3/uL [facility] Red Blood Count 3.94(L) 4.20 - 5.50 X10*6/uL [facility] Hemoglobin 11.4(L) 12.0 - 16.0 g/dl [facility] Hematocrit 36.0(L) 37.0 - 47.0 % [facility] Mean Corpuscular Volume 91.4 80.0 - 98.0 fL [facility] Mean Corpuscular Hemoglobin 28.9 27.0 - 33.0 pg [facility] Mean Corpuscular HGB Conc 31.7 31.0 - 35.0 g/dl [facility] Red Cell Distribution Width 14.7 11.0 - 16.0 % [facility] Platelet Count 425(H) 160 - 400 X10*3/uL [facility] Mean Platelet Volume 10.3 9.4 - 12.3 fL [facility] Neutrophils Percent Auto 53.6 45 - 73 % [facility] Imm Gran Pct Auto 0.4 0.0 - 0.4 % [facility] Lymphocytes Percent Auto 30.2 20 - 40 % [facility] Monocytes Percent Auto 10.1 2 - 11 % [facility] Eosinophils Percent Auto 4.6(H) 0 - 4 % [facility] Basophils Percent Auto 1.1 0 - 2 % [facility] NRBC Pct Auto 0.0 0.0 - 0.2 /100WBC [facility] Neutrophils Absolute Auto 6.7 2.0 - 8.3 x10*3/uL [facility] Imm Gran Abs Auto 0.05(H) 0.00 - 0.03 X10*3/uL [facility] Lymphocytes Absolute Auto 3.8 1.2 - 4.9 X10*3/uL [facility] Monocytes Absolute Auto 1.3(H) 0.1 - 1.2 X10*3/uL [facility] Eosinophils Absolute Auto 0.6(H) 0.0 - 0.4 X10*3/uL [facility] Basophils Absolute Auto 0.1 0.0 - 0.2 X10*3/uL [facility] NRBC Abs Auto 0.000 0.0 - 0.012 X10*3/uL [facility] 08/31/2022 7:32 AM EDT 08/31/2022 7:32 AM EDT us [facility] External Provider LAB BLO OD ORDERABLES Final Result [facility] [address] [place] [phone] * Hemoglobin A1c (08/31/2022 7:32 AM EDT) Hemoglobin A1c 5.8 % [facility] Comment:Hemoglobin A1C Refer ence Range Adults: 4.8 - 6.0 % Non diabetic: < 6.0 % Goal: < 7.0 %Additional Action Suggested: > 8.0 %Note: Hemoglobin A1c results are invalid for patients with abnormal amounts of HbF. Blood transfusions may impact the HbA1c concentration in the patient sample. Estimated Average Glucose 120 mg/dL [facility] Comment:eAG = Estimated ave rage glucose which is %A1C expressed asaverage glucose, using the formula of the T1E-MbwdouxLnenzfk Glucose study (ADAG), Diabetes Care, Vol.31,#8,Dec. 2007 08/31/2022 7:32 AM EDT 08/31/2022 7:32 AM EDT [facility] External Provider LAB BLO OD ORDERABLES Final Result [facility] [address] [place] [address] [phone] * (ABNORMAL) Basic Metabolic Panel (08/10/2022 4:55 AM EDT) Sodium 137 135 - 145 mmol/L [facility] Potassium 4.7 3.3 - 5.1 mmol/L [facility] Chloride 105 96 - 108 mmol/L [facility] Carbon Dioxide 21(L) 22 - 29 mmol/L [facility] Anion Gap 16 12 - 20 [facility] Urea Nitrogen (BUN) 9 9 - 16 mg/dL [facility] Creatinine, Serum 0.79 0.5 - 1.4 mg/dL [facility] Estimated Glomerular Filt Rate >60 [facility] Comment:NOTE: For -Am erican individuals, multiply the result by 1.210.Chronic Kidney Disease: Estimated GFR < 60 mL/min/1.34q8Bsehiu Kidney Disease: Estimated GFR < 15 mL/min/1.73m2 Glucose 95 60 - 115 mg/dL [facility] Calcium 8.7 8.4 - 10.2 mg/dL [facility] 08/10/2022 4:55 AM EDT 08/10/2022 6:02 AM EDT us [facility] External Provider LAB BLO OD ORDERABLES Final Result [facility] [address] [place] [phone] * (ABNORMAL) CBC auto differential (08/10/2022 4:55 AM EDT) White Blood Count 9.3 4.8 - 10.8 X10*3/uL [facility] Red Blood Count 3.24(L) 4.20 - 5.50 X10*6/uL [facility] Hemoglobin 9.7(L) 12.0 - 16.0 g/dl [facility] Hematocrit 30.5(L) 37.0 - 47.0 % [facility] Mean Corpuscular Volume 94.1 80.0 - 98.0 fL [facility] Mean Corpuscular Hemoglobin 29.9 27.0 - 33.0 pg [facility] Mean Corpuscular HGB Conc 31.8 31.0 - 35.0 g/dl [facility] Red Cell Distribution Width 15.2 11.0 - 16.0 % [facility] Platelet Count 647(H) 160 - 400 X10*3/uL [facility] Mean Platelet Volume 10.1 9.4 - 12.3 fL [facility] Neutrophils Percent Auto 54.9 45 - 73 % [facility] Imm Gran Pct Auto 0.5(H) 0.0 - 0.4 % [facility] Lymphocytes Percent Auto 26.3 20 - 40 % [facility] Monocytes Percent Auto 8.3 2 - 11 % [facility] Eosinophils Percent Auto 8.5(H) 0 - 4 % [facility] Basophils Percent Auto 1.5 0 - 2 % [facility] NRBC Pct Auto 0.0 0.0 - 0.2 /100WBC [facility] Neutrophils Absolute Auto 5.1 2.0 - 8.3 x10*3/uL [facility] Imm Gran Abs Auto 0.05(H) 0.00 - 0.03 X10*3/uL [facility] Lymphocytes Absolute Auto 2.4 1.2 - 4.9 X10*3/uL [facility] Monocytes Absolute Auto 0.8 0.1 - 1.2 X10*3/uL [facility] Eosinophils Absolute Auto 0.8(H) 0.0 - 0.4 X10*3/uL [facility] Basophils Absolute Auto 0.1 0.0 - 0.2 X10*3/uL [facility] NRBC Abs Auto 0.000 0.0 - 0.012 X10*3/uL [facility] 08/10/2022 4:55 AM EDT 08/10/2022 6:02 AM EDT us [facility] External Provider LAB BLO OD ORDERABLES Final Result [facility] [address] [place] [phone] * (ABNORMAL) Comprehensive Metabolic Panel (08/03/2022 5:00 AM EDT) Sodium 136 135 - 145 mmol/L [facility] Potassium 3.9 3.3 - 5.1 mmol/L [facility] Chloride 107 96 - 108 mmol/L [facility] Carbon Dioxide 20(L) 22 - 29 mmol/L [facility] Anion Gap 13 12 - 20 [facility] Urea Nitrogen (BUN) 11 9 - 16 mg/dL [facility] Creatinine, Serum 0.79 0.5 - 1.4 mg/dL [facility] Estimated Glomerular Filt Rate >60 [facility] Comment:NOTE: For -[place] er[place] individuals, multiply the result by 1.210.Chronic Kidney Disease: Estimated GFR < 60 mL/min/1.46i3Bezsyg Kidney Disease: Estimated GFR < 15 mL/min/1.73m2 Glucose 127(H) 60 - 115 mg/dL [facility] Calcium 8.2(L) 8.4 - 10.2 mg/dL [facility] Bilirubin, Total 0.3 0.0 - 1.0 mg/dL [facility] Aspartate Amino Transferase 16 5 - 31 U/L [facility] Alanine Aminotransferase 7 0 - 31 U/L [facility] Total Protein 4.8(L) 6.5 - 8.0 g/dL [facility] Albumin Level 2.5(L) 3.5 - 5.0 g/dL [facility] Alkaline Phosphatase 80 39 - 117 U/L [facility] 08/03/2022 5:00 AM EDT 08/03/2022 5:47 AM EDT us [facility] External Provider LAB BLO OD ORDERABLES Final Result [facility] [address] [place], [place] [phone] * (ABNORMAL) CBC auto differential (08/03/2022 5:00 AM EDT) White Blood Count 8.8 4.8 - 10.8 X10*3/uL [facility] Red Blood Count 2.63(L) 4.20 - 5.50 X10*6/uL [facility] Hemoglobin 8.0(L) 12.0 - 16.0 g/dl [facility] Hematocrit 24.6(L) 37.0 - 47.0 % [facility] Mean Corpuscular Volume 93.5 80.0 - 98.0 fL [facility] Mean Corpuscular Hemoglobin 30.4 27.0 - 33.0 pg [facility] Mean Corpuscular HGB Conc 32.5 31.0 - 35.0 g/dl [facility] Red Cell Distribution Width 15.5 11.0 - 16.0 % [facility] Platelet Count 552(H) 160 - 400 X10*3/uL [facility] Mean Platelet Volume 10.3 9.4 - 12.3 fL [facility] Neutrophils Percent Auto 61.1 45 - 73 % [facility] Imm Gran Pct Auto 0.8(H) 0.0 - 0.4 % [facility] Lymphocytes Percent Auto 21.7 20 - 40 % [facility] Monocytes Percent Auto 10.2 2 - 11 % [facility] Eosinophils Percent Auto 4.9(H) 0 - 4 % [facility] Basophils Percent Auto 1.3 0 - 2 % [facility] NRBC Pct Auto 0.0 0.0 - 0.2 /100WBC [facility] Neutrophils Absolute Auto 5.4 2.0 - 8.3 x10*3/uL [facility] Imm Gran Abs Auto 0.07(H) 0.00 - 0.03 X10*3/uL [facility] Lymphocytes Absolute Auto 1.9 1.2 - 4.9 X10*3/uL [facility] Monocytes Absolute Auto 0.9 0.1 - 1.2 X10*3/uL [facility] Eosinophils Absolute Auto 0.4 0.0 - 0.4 X10*3/uL [facility] Basophils Absolute Auto 0.1 0.0 - 0.2 X10*3/uL [facility] NRBC Abs Auto 0.000 0.0 - 0.012 X10*3/uL [facility] 08/03/2022 5:00 AM EDT 08/03/2022 5:47 AM EDT [facility] External Provider LAB BLO OD ORDERABLES Final Result [facility] [address] [place] [address] [phone] * (ABNORMAL) Magnesium (07/13/2022 8:29 AM EST) Magnesium 1.5(L) 1.6 - 2.6 mg/dL [facility] 07/13/2022 8:29 AM EST 07/13/2022 8:29 AM EST [facility] External Provider LAB BLO OD ORDERABLES Final Result [facility] [address] [place] [address] [phone] documented in this encounter Visit Diagnoses Diagnosis Hypomagnesemia- Primary Disorders of magnesium metabolism documented in this encounter Care Teams Die Equipment Operator Relationship Specialty Start Date End Date Shawna Gamble MD [address] [place] [phone] PCP - General Family Medicine 05/13/22 [employer] 01/22/25 documented as of this encounter
--- OUTSIDE RECORDS SUMMARY | 2025-02-27 18:34 | XMS_ITS | Encounter Summary ---
Author Organization [employer] Address 75 [facility] 7t [place] [address] Care Team Providers Care Software Quality Assurance Engineer Name Role Phone Shawna Gamble MD Primary Care Provider [phone] Encounter Details Date Type Department Care Team ([facility] st Contact Info) Description 01/06/2024 Orders Only [facility] [address] [place] [address] Anisha Mc MD 230 [place] [address] Social History Tobacco Use Types Packs/Day Years [...] 11:00 AM EDT Medication Management [facility] MEDICINE 230 [place] [address] Apurva Corona, HennyD [address] [place] [address] documented as of this encounter Visit Diagnoses Not on filedocumented in this encounter Additional Health Concerns Assessment Noted Time PHQ-9 Depression Total Score: 6 10/15/19 24 11:05 AM EDT documented as of this encounter Care Teams Software Quality Assurance Engineer Relationship Specialty Start Date End Date Shawna Gamble MD [address] [place] [address] PCP - General Family Medicine 05/13/22 [employer] 01/22/25 documented as of this encounter
--- OUTSIDE RECORDS SUMMARY | 2025-02-27 18:34 | XMS_ITS | Encounter Summary ---
Author Organization [employer] [facility] Address [address] [place] [address] 7 [place] [address] Care Team Providers Care Dielectric Embossing Machine Operator Name Role Phone Makenna Trinidad MD Primary Care Provider Shawna Hand MD Primary Care Provider [phone] Encounter Details Date Type Department Care Team (Late st Contact Info) Description 04/20/2022 Abstract [facility]ULT [facility] 230 [place] [address] Dental, Provider, DDS Social History Tobacco Use [...] Description 03/02/2025 11:00 AM EDT Medication Management [facility] MEDICINE [address] [place] [address] Apurva Corona, PharmD 230 [place] [address] documented as of this encounter Procedures Procedure [...] on filedocumented in this encounter Care Teams Dielectric Embossing Machine Operator Relationship Specialty Start Date End Date Makenna Trinidad MD PCP - General Family Medicine 03/24/19 05/12/22 Shawna Gamble MD [address] [place] [address] PCP - General Family Medicine 05/13/22 [employer] 01/22/25 documented as of this encounter
--- OUTSIDE RECORDS SUMMARY | 2025-02-27 18:34 | XMS_ITS | Encounter Summary ---
Author Organization [employer] Address 75 [facility] 7t [place] [address] Care Team Providers Care Environmental Health Technologist Name Role Phone Shawna Gamble MD Primary Care Provider [phone] Encounter Details Date Type Department Care Team ([facility] st Contact Info) Description 03/15/2023 Orders Only [facility] MEDICINE [address] [place] [address] Shawna Gamble MD 230 [place] [address] Social History Tobacco Use Types Packs/Day Years [...] Description 03/02/2025 11:00 AM EDT Medication Management [facility] MEDIC[facility] [address] [place] [address] Apurva Corona, HennyD [address] [place] [address] documented as of this encounter Visit Diagnoses Not on filedocumented in this encounter Care Teams Environmental Health Technologist Relationship Specialty Start Date End Date Shawna Gamble MD 230 [place] [address] PCP - General Family Medicine 05/13/22 [employer] 01/22/25 documented as of this encounter
--- OUTSIDE RECORDS SUMMARY | 2025-02-27 18:34 | XMS_ITS | Encounter Summary ---
Author Organization [employer] Address [address] [place] [address] 7t [place] [address] Care Team Providers Care Brim Shaper Name Role Phone Shawna Gamble MD Primary Care Provider Reason for Visit * Reason Onset Date Comments rs appt 03/29/2023 Encounter Details Date Type Department Care Team ([facility] st Contact Info) Description 03/29/2023 Telephone [facility] [address] [place] [address] Uriel Jacobs DDS 230 [place] [address] rs appt Social History Tobacco Use Types [...] t he electric, gas, oil or water [employer] threatened to shut off services in your [...] Description 03/02/2025 11:00 AM EDT Medication Management [facility] 230 [place] [address] Apurva Corona, PharmD 230 [place] [address] documented as of this encounter Visit Diagnoses Not on filedocumented in this encounter Care Teams Brim Shaper Relationship Specialty Start Date End Date Shawna Gamble MD 230 [place] [address] PCP - General Family Medicine 05/13/22 [employer] 01/22/25 documented as of this encounter
--- OUTSIDE RECORDS SUMMARY | 2025-02-27 18:34 | XMS_ITS | Encounter Summary ---
Author Organization [employer] Address 75 [facility] 7t [place] [address] Care Team Providers Care Joint Filler Name Role Phone Shawna Gamble MD Primary Care Provider [phone] Reason for Visit * Reason Onset Date Comments fyi 02/27/2025 Encounter Details Date Type Department Care Team ([facility] Contact Info) Description 02/27/2025 Telephone [facility] 230 [place], [place] [phone] Shawna Gamble MD 230 [place], [place] [phone] fyi Social History Tobacco Use Types Packs/Day Years [...] encounter Miscellaneous Notes * Telephone Encounter - Luis Manuel Smith - 02/27/2025 3:11 PM EDT Tc from Deya at [facility] stating pt is being transported to [facility] for falls, severe headache and elevated blood pressure Contact [employer] at [phone] documented in this encounter Plan of Treatment Upcoming Encounters Date Type Department Care Team (Late st Contact Info) Description 03/02/2025 11:00 AM EDT Medication Management [facility] 230 [place] [address] pAurva Corona, PharmD 230 [place] [address] documented as of this encounter Visit Diagnoses Not on filedocumented in this encounter Additional Health Concerns Assessment Noted Time PHQ-9 Depression Total Score: 6 10/19/19 25 11:41 AM EDT documented as of this encounter Care Teams Joint Filler Relationship Specialty Start Date End Date Shawna Gamble MD 230 [place] [address] PCP - General Family Medicine 05/13/22 [employer] 01/22/25 documented as of this encounter
--- OUTSIDE RECORDS SUMMARY | 2025-02-27 18:34 | XMS_ITS | Encounter Summary ---
Author Organization [employer] [facility] Address [address] [place] [address] 7t [place] [address] Care Team Providers Care Senior Oracle Database Administrator Name Role Phone Shawna Gamble MD Primary Care Provider [phone] Encounter Details Date Type Department Care Team (Late Contact Info) Description 07/13/2022 Abstract [facility] 230 [place], [place] [phone] Uriel Jacobs DDS [address] [place] [address] Social History Tobacco Use Types Packs/Day Years [...] Management [facility] 230 [place] [address] Apurva Corona, PharmD 230 [place] [address] documented as of this encounter Visit Diagnoses Not on filedocumented in this encounter Care Teams Senior Oracle Database Administrator Relationship Specialty Start Date End Date Shawna Gamble MD 230 [place] [address] PCP - General Family Medicine 05/13/22 [email or web address] 01/22/25 documented as of this encounter
--- OUTSIDE RECORDS SUMMARY | 2025-02-27 18:34 | XMS_ITS | Clinical Summary ---
Author Organization [facility] Address [address] [place] [phone] Phone Care Team Providers Care Parts Cataloger Name Role Phone Reena Marinelli Primary Care Provider [phone] Social History Tobacco Use Types Packs/Day Years [...] file Medical Devices Not on file Insurance [facility] [place] [id number] [facility] MEDICARE REPLACEMENT [facility] MEDICARE [facility]PLACEMENT [address] [facility] [place] [facility] MEDICARE [facility]PLACEMENT 12 [facility]. [place] [facility] MEDICARE [facility]PLACEMENT 12 [facility] [place] [facility] MEDICARE [facility]PLACEMENT 12 [facility]. [place] [facility] MEDICARE [facility]PLACEMENT 12 [facility]. [place] [facility] MEDICARE REPLACEMENT [facility] MEDICARE REPLACEMENT Care Teams Parts Cataloger Relationship Specialty Start Date End Date Reena Marinelli PA [address] [place] [address] [email or web address] PCP - General Broach Setter 08/18/19 Additional Source Comments The information contained in this document represents components of the legal health record. It is not the complete legal health record.[facility]
--- OUTSIDE RECORDS SUMMARY | 2025-02-27 18:34 | XMS_ITS | Encounter Summary ---
Author Organization [employer] Address 75 [facility] 7t [place] [address] Care Team Providers Care Concrete Products Machine Operator Name Role Phone Shawna Gamble MD Primary Care Provider [phone] Reason for Visit * Reason Comments Med Refill Encounter Details Date Type Department Care Team ([facility] st Contact Info) Description 05/07/[address] [facility] MED & PEDS [address] [place], [place] [phone] Shawna Gamble MD [address] [place] [address] Social History Tobacco Use Types Packs/Day Years [...] [facility] 230 [place] [address] Apurva Corona, HennyD [address] [place] [address] documented as of this encounter Visit Diagnoses Not on filedocumented in this encounter Care Teams Concrete Products Machine Operator Relationship Specialty Start Date End Date Shawna Gamble MD [address] [place] [address] PCP - General Family Medicine 05/13/22 [employer] 01/22/25 documented as of this encounter
--- OUTSIDE RECORDS SUMMARY | 2025-02-27 18:34 | XMS_ITS | Clinical Summary ---
Author Organization [facility] Address [address] [place] [address] Care Team Providers Care Employment Counselor Name Role Phone Unavailable Primary Care Provider [...]
--- OUTSIDE RECORDS SUMMARY | 2025-02-27 18:34 | XMS_ITS | Encounter Summary ---
Author Organization [employer] Address 75 [facility] 7t [place] [address] Care Team Providers Care Claim Clerk Name Role Phone Shawna Gamble MD Primary Care Provider [phone] Encounter Details Date Type Department Care Team ([facility] st Contact Info) Description 11/07/2024 Orders Only [facility] MEDIC[facility] [address] [place], [place] [phone] Shawna Gamble MD [address] [place] [address] Hypomagnesemia (Primary Dx) Social History Tobacco Use [...] Description 03/02/2025 11:00 AM EDT Medication Management [facility] MED[facility] 230 [place] [address] Apurva Corona, PharmD [address] [place] [address] documented as of this encounter Procedures Procedure Name Priority Date/Time Associated Diagnosis Comments MAGNESIUM Routine 12/28/2024 3:06 PM EDT Hypomagnesemia documented in this encounter Results * Magnesium (12/28/2024 3:06 PM EDT) Magnesium 1.7 1.6 - 2.6 mg/dL [facility] Blood Venous blood specimen / Unknown 12/28/2024 3:06 PM EDT 12/28/2024 3:06 PM EDT us Shawna Gamble MD LAB BLOOD ORDERABLES Final Res ult [facility] [address] [place] [address] [phone] documented in this encounter Visit Diagnoses Diagnosis Hypomagnesemia- Primary Disorders of magnesium metabolism documented in this encounter Additional Health Concerns Assessment Noted Time PHQ-9 Depression Total Score: 6 10/19/19 25 11:41 AM EDT documented as of this encounter Care Teams Claim Clerk Relationship Specialty Start Date End Date Shawna Gamble MD [address] [place] [address] PCP - General Family Medicine 05/13/22 [employer] 01/22/25 documented as of this encounter
--- OUTSIDE RECORDS SUMMARY | 2025-02-27 18:34 | XMS_ITS | Encounter Summary ---
Author Organization [employer] Address 75 [facility] 7t [place] [address] Care Team Providers Care Milling Planer Operator Name Role Phone Shawna Gamble MD Primary Care Provider [phone] Encounter Details Date Type Department Care Team ([facility] st Contact Info) Description 12/01/2023 Orders Only [facility] MEDICINE [address] [place], [place] [phone] Shawna Gamble MD [address] [place] [address] Closed fracture of medial portion of left [...] 03/02/2025 11:00 AM EDT Medication Management [facility] MEDICINE 230 [place] [address] Apurva Corona PharmD 230 [place] [address] documented as of this encounter Visit Diagnoses Diagnosis Closed fracture of medial portion of left tibial plateau with routine healing, subsequent encounter- Primary documented in this encounter Additional Health Concerns Assessment Noted Time PHQ-9 Depression Total Score: 6 10/15/19 24 11:05 AM EDT documented as of this encounter Care Teams Milling Planer Operator Relationship Specialty Start Date End Date Shawna Gamble MD [address] [place] [address] PCP - General Family Medicine 05/13/22 [employer] 01/22/25 documented as of this encounter
--- OUTSIDE RECORDS SUMMARY | 2025-02-27 18:34 | XMS_ITS | Encounter Summary ---
Author Organization [employer] Address [address] [place] [address] 7t [place] [address] Care Team Providers Care Rn Mds Name Role Phone Shawna Gamble MD Primary Care Provider [phone] Reason for Visit * Reason Onset Date Comments requesting script 05/13/2022 Encounter Details Date Type Department Care Team ([facility] st Contact Info) Description 05/13/[address] [facility] MEDICINE [address] [place], [place] [phone] Makenna Trinidad MD requesting script Social History [...] PM EST TC place to pt at [phone] via [employer]. Pt states she's in need of body [...] send to medline Please contact pt at [phone] documented in this encounter Plan of Treatment Upcoming Encounters Date Type Department Care Team (Late st Contact Info) Description 03/02/2025 11:00 AM EDT Medication Management [facility] MEDICINE [address] [place], [place] [phone] Apurva Corona, PharmD [address] [place] [address] documented as of this encounter Visit Diagnoses Not on filedocumented in this encounter Care Teams Rn Mds Relationship Specialty Start Date End Date Shawna Gamble MD [address] [place] [address] PCP - General Family Medicine 05/13/22 [employer] 01/22/25 documented as of this encounter
--- OUTSIDE RECORDS SUMMARY | 2025-02-27 18:34 | XMS_ITS | Encounter Summary ---
Author Organization [employer] Address [address] [facility] 7t [place] [address] Care Team Providers Care Public Affairs Officer Name Role Phone Shawna Gamble MD Primary Care Provider [phone] Reason for Visit * Reason Comments Med Refill Encounter Details Date Type Department Care Team ([facility] st Contact Info) Description 02/18/2023 Refill [facility] MED[facility] [address] [place] [address] Shawna aGmble MD [address] [place] [address] Primary insomnia Social History Tobacco Use Types [...] 11:00 AM EDT Medication Management [facility] [address] [place] [address] Apurva Corona, HennyD [address] [place] [address] documented as of this encounter Visit Diagnoses Diagnosis Primary insomnia Persistent disorder of initiating or maintaining sleep documented in this encounter Care Teams Public Affairs Officer Relationship Specialty Start Date End Date Shawna Gamble MD [address] [place] [address] PCP - General Family Medicine 05/13/22 [employer] 01/22/25 documented as of this encounter
--- OUTSIDE RECORDS SUMMARY | 2025-02-27 18:34 | XMS_ITS | Encounter Summary ---
Author Organization [employer] Address [address] [place] [address] 7t [place] [address] Care Team Providers Care Philosophy Instructor Name Role Phone Shawna Gamble MD Primary Care Provider [phone] Reason for Visit * Reason Comments Med Change Request Encounter Details Date Type Department Care Team ([facility] st Contact Info) Description 02/10/2024 Refill [facility] MEDICINE [address] [place] [address] Anisha Mc MD [address] [place] [address] Social History Tobacco Use Types Packs/Day Years [...] Description 03/02/2025 11:00 AM EDT Medication Management [facility] MEDICINE [address] [place] [address] Apurva Corona PharmD [address] [place] [address] documented as of this encounter Visit Diagnoses Not on filedocumented in this encounter Additional Health Concerns Assessment Noted Time PHQ-9 Depression Total Score: 6 10/15/19 24 11:05 AM EDT documented as of this encounter Care Teams Philosophy Instructor Relationship Specialty Start Date End Date Shawna Gamble MD [address] [place] [address] PCP - General Family Medicine 05/13/22 [employer] 01/22/25 documented as of this encounter
--- OUTSIDE RECORDS SUMMARY | 2025-02-27 18:34 | XMS_ITS | Encounter Summary ---
Author Organization [employer] Address [address] [facility] 7t [place] [address] Care Team Providers Care Jordan Worker Name Role Phone Shawna Gamble MD Primary Care Provider [phone] Encounter Details Date Type Department Care Team ([facility] st Contact Info) Description 09/27/2023 Orders Only [facility] MEDICINE [address] [place] [address] ProviderShahrzad MD Social History Tobacco Use Types [...] 11:00 AM EDT Medication Management [facility] MEDICINE [address] [place] [address] Apurva Corona, PharmD [address] [place] [address] documented as of this encounter Procedures Procedure Name Priority Date/Time Associated Diagnosis Comments HM COLONOSCOPY Routine 10/11/2020 9:13 AM EDT documented in this encounter Results * Hm Colonoscopy (10/11/2020 9:13 AM EDT) Historical Provider HEALTH MAINTENANCE Final Result documented in this encounter Visit Diagnoses Not on filedocumented in this encounter Care Teams Jordan Worker Relationship Specialty Start Date End Date Shawna Gamble MD [address] [place] [address] PCP - General Family Medicine 05/13/22 [employer] 01/22/25 documented as of this encounter
--- OUTSIDE RECORDS SUMMARY | 2025-02-27 18:34 | XMS_ITS | Clinical Summary ---
Author Organization [employer] Address [address] [place] [address] [address] [place] [address] Care Team Providers Care Cuffing Machine Operator Name Role Phone Shawna Gamble MD Primary Care Provider [phone] Allergies Active Allergy Reactions Criticality Noted Date [...] by mouth. Take with food. 2 Active triamcinolone (Kenalog) 0.1 % cream [...] 2 Active cholecalciferol (Vitamin D-3) 250 MCG (65447 UT) capsule TAKE 1 CAPSULE BY MOUTH [...] mg by mouth at bedtime. 3 Active Blood Glucose Monitoring Suppl (ONE TOUCH ULTRA 2) w/Device kit 1 each 2 times daily. 1 kit 3 Active OneTouch Delica Lancets 33G [facility] Use to test blood sugar 2 times [...] EVERY DAY FOR 30 DAYS 4 Active ferrous gluconate (Fergon) 324 (37.5 Fe) MG tablet Take 1 tablet by mouth twice daily. 180 tablet 4 Active DULoxetine (Cymbalta) [address] capsule TAKE 1 CAPSULE (20 MG) BY MOUTH AT BEDTIME. DO NOT CRUSH OR CHEW. 90 capsule 3 4 03/06/20 25 Active ferrous gluconate (Fergon) 324 (38 Fe) MG tablet TAKE 1 TABLET (324 MG TOTAL) BY MOUTH 1 (ONE) TIME EACH DAY WITH BREAKFAST 4 Active atorvastatin (Lipitor) 80 MG tabletIndicatio ns:Atherosclero sis of coronary artery of [place] heart, unspecified vessel or lesion type, unspecified whether angina present TAKE 1 TABLET (80 MG) BY MOUTH IN THE MORNING 90 tablet 3 4 Active Xarelto 2.5 MG tablet Take 1 tablet (2.5 mg) by mouth 2 times daily. 60 tablet 6 4 Active Aspirin Low Dose 81 MG EC tabletIndicatio ns:Type 2 diabetes mellitus without complication, without long-term current use of insulin (HCC) TAKE 1 TABLET (81 MG) BY MOUTH IN THE MORNING 90 tablet 3 5 Active magnesium oxide (Mag-Ox) 400 MG tablet TAKE 1 TABLET (400 MG) BY MOUTH IN THE MORNING 90 tablet 1 5 Active FreeStyle lancetsIndicati ons:Type 2 diabetes mellitus without complication, without long-term current use of insulin (HCC) USE TO TEST 3 TIMES DAILY 100 each 11 5 Active hydrOXYzine HCl (Atarax) 25 MG tablet Take 1 tablet by mouth 2 times daily. 4 Active nitroglycerin (Nitrostat) 0.4 MG SL tablet TAKE 1 TAB SUBLINGUALLY EVERY 5 MINS FOR UP TO 3 TABLETS MAX EVERY 30 DAYS NEEDED, DIRECTED 4 Active empagliflozin (Jardiance) 10 MG Take 1 tablet (10 mg) by mouth Once per day. 90 tablet 1 5 04/21/20 25 Active metFORMIN XR (Glucophage-XR) 500 MG 24 hr tablet TAKE 2 TABLET BY ORAL ROUTE 2 TIMES EVERY DAY WITH THE EVENING MEAL 360 tablet 3 5 Active albuterol 108 (90 Base) MCG/ACT inhalerIndicati ons:Shortness of breath Inhale 2 puffs every 6 (six) hours if needed for wheezing. 18 g 11 5 11/04/19 26 Active omeprazole (PriLOSEC) [address] capsule Take 1 capsule by mouth Once per day. 5 Active Linzess 145 MCG capsule take 1 capsule by mouth every day in the morning 5 Active memantine (Namenda) 5 MG tablet 5 Active lisinopril (Prinivil) 20 MG tablet Take 1 tablet (20 mg) by mouth Once per day. 30 tablet 11 5 01/09/20 26 Active lidocaine (Lidoderm) 5 % patchIndication s:Right hip pain,Pain of left hip Apply 1 patch topically Once per day. Remove & discard patch within 12 hours or as directed by MD. 30 patch 3 5 Active Magnesium 400 MG capsuleIndicati ons:Hypomagnese arlen Take 1 capsule by mouth daily 90 capsule 3 5 Active loratadine (Claritin) 10 MG tabletIndicatio ns:Seasonal allergies TAKE 1 TABLET BY MOUTH once daily as needed 90 tablet 1 5 Active Active Problems Problem Noted Date [...] 10/18/2024 Chronic kidney disease, stage 2 (mild) 4 [...] - home PT to start soon through [place] [facility] Fractured dental tenriism with loss of materi al 10/20/2023 Drug-induced [...] bypass surgery 2022 Overview (03/17/2023): 07/2022 at [facility] Chest pain on breathing 12/04/2022 Assessment [...] 10/23/2024 Type 2 diabetes mellitus without complication 03/10/2010/23/2024 Assessment & Plan (10/17/2023 5:36 PM EDT): [...] Encounters Date Type Department Care Team Description 02/27/2025 Orders Only GENERIC EXTERNAL DATA DEPARTMENT Provider, Generic External Data 02/27/[address] [facility] [address] [place] [phone] Shawna Gamble MD fyi 02/27/[address] [facility] [address] [place] [phone] Shawna Gamble MD Nurse Triage 02/22/[address] [facility] [address] [place] [phone] Shawna Gamble MD fyi 02/22/[address] [facility] [address] [place] [phone] Shawna Gamble MD nov recall 02/12/2025 Orders Only GENERIC EXTERNAL DATA DEPARTMENT Provider, Generic External Data 01/23/[address] [address] Shawna Gamble MD Durable Medical Equipment (DME Request: Bed Assist Bars) 01/23/[address] [address] Shawna Gamble MD verbal orders needed 01/22/[address] [address] Shawna Gamble MD Hypomagnesemia; Seasonal allergies 01/17/[address] [address] Shawna Gamble MD Prior Authorization 01/10/[address] [address] An Brown, [facility] RE[facility]ERRAL 01/10/[address] [address] Shawna Gamble MD 01/08/2025 3:30 PM EDT Office Visit [address] [address] Shawna Gamble MD Right hip pain (Primary Dx); Type 2 diabetes mellitus with diabetic neuropathy, without long-term current use of insulin ([facility]); Essential hypertension; Orthostatic hypotension; Pain of left hip 01/08/2025 Travel 01/05/[address] [address] Shawna Gamble MD chart prep 01/01/2025 Orders Only GENERIC EXTERNAL DATA DEPARTMENT Provider, Generic External Data 01/01/[address] [address] Shawna Gamble MD Nurse Triage 12/28/2024 Orders Only GENERIC EXTERNAL DATA DEPARTMENT Provider, Generic External Data 12/11/[address] [address] Shawna Gamble MD No Show 12/07/[address] [address] Shawna Gamble MD 12/01/[address] [facility] [address] [place] [address] Shawna Gamble MD Care Coordination (CHW outreach for SDOH housing search-LVM ) 12/01/[address] [facility] [address] [place] [address] Shawna Gamble MD Pre-visit Planning ((SDOH screening [...] 03/02/2025 11:00 AM EDT Medication Management [facility] [address] [place] [address] Apurva Corona, PharmD [address] [place] [address] Health Maintenance Due Date Last Done Comments [...] Procedure Name Priority Date/Time Associated Diagnosis Comments HOLD LAVENDER - POSSIBLE HEMATOLOGY Routine 02/27/2025 5:08 PM EDT SED RATE BY MODIFIED WESTERGREN Routine 02/27/2025 5:08 PM EDT HIGH SENSITIVITY TROPONIN I Routine 02/27/2025 5:08 PM EDT LIPASE Routine 02/27/2025 5:08 PM EDT C-REACTIVE PROTEIN Routine 02/27/2025 5: 08 PM EDT BASIC METABOLIC PANEL Routine 02/27/2025 5:08 PM EDT HEPATIC FUNCTION PANEL Routine 5:08 PM EDT CBC WITH AUTO DIFFERENTIAL Routine 02/27/2025 5:08 PM EDT URINALYSIS, COMPLETE, WITH REFLEX TO CULTURE Routine 02/12/2025 8:[address] CHEST W CONTRAST Routine 02/12/2025 8 :[address] ABDOMEN PELVIS W CONTRAST Routine 02/12/2025 8:[address] CERVICAL SPINE WO CONTRAST Routine 02/12/2025 [...] neuropathy, without long-term current use of insulin ([facility]) POCT GLYCATED HEMOGLOBIN, TOTAL Routine 01/08/2025 3:48 PM EDT Type 2 diabetes mellitus with diabetic neuropathy, without long-term current use of insulin (CMS/HCC) CT HEAD WO CONTRAST Routine 01/02/2025 1 [...] neuropathy, without long-term current use of insulin ([facility]/HCC) ALBUMIN, RANDOM URINE W/CREATININE Routine 10/20/2024 10:18 AM EDT Type 2 diabetes mellitus with diabetic neuropathy, without long-term current use of insulin (CMS/HCC) BI MAMMOGRAM SCREENING TOMOSYNTHESIS BILATERAL Routine 06/30/2024 [...] Recently Relevant to Health Maintenance Results * Hold Lavender - Possible Hematology (02/27/2025 5:08 PM EDT) Pathologist [facility] Hold Lavender - Possible Hematololgy SEE NOTE [facility] Comment:Specimen will be hel d untested for 8 hours. Call Hematologyif testing is desired. 02/27/2025 5:08 PM EDT 02/27/2025 5:21 PM EDT Generic External Data Provider HISTORICAL/NON OR DERABLE LABS Final Result Performing Organization Address [facility] Co de Phone Number [facility] [address] [place] [phone] * High Sensitivity Troponin I (02/27/2025 5:08 PM EDT) Only the most recent of2 resultswithin the time period is included. [facility] TROPONIN I HIGH SENSITIVITY <2.7 <3.5 - 17.0 ng/L [facility] Comment:The Goins high sens itivity Troponin-I results should beused in conjunction with other diagnostic information suchas ECG, clinical observations and information, and patientsymptoms to aid in the diagnosis of IA. 02/27/2025 5:08 PM EDT 02/27/2025 5:20 PM EDT Generic External Data Provider LAB BLOOD ORDERAB LES Final Result Performing Organization Address [facility]/ZIP Co de Phone Number [facility] [address] [place] [phone] * (ABNORMAL) CBC auto differential (02/27/2025 5:08 PM EDT) Only the most recent of3 resultswithin the time period is included. [facility] White Blood Count 8.9 4.8 - 10.8 X10*3/uL [facility] Red Blood Count 3.85(L) 4.20 - 5.50 X10*6/uL [facility] Hemoglobin 10.9(L) 12.0 - 16.0 g/dl [facility] Hematocrit 34.2(L) 37.0 - 47.0 % [facility] Mean Corpuscular Volume 88.8 80.0 - 98.0 fL [facility] Mean Corpuscular Hemoglobin 28.3 27.0 - 33.0 pg [facility] Mean Corpuscular HGB Conc 31.9 31.0 - 35.0 g/dl [facility] Red Cell Distribution Width 15.5 11.0 - 16.0 % [facility] Platelet Count 284 160 - 400 X10*3/uL [facility] Mean Platelet Volume 11.3 9.4 - 12.3 fL [facility] Neutrophils Percent Auto 58.4 45 - 73 % [facility] Imm Gran Pct Auto 0.4 0.0 - 0.4 % [facility] Lymphocytes Percent Auto 25.0 20 - 40 % [facility] Monocytes Percent Auto 9.6 2 - 11 % [facility] Eosinophils Percent Auto 5.6(H) 0 - 4 % [facility] Basophils Percent Auto 1.0 0 - 2 % [facility] NRBC Pct Auto 0.0 0.0 - 0.2 /100WBC [facility] Neutrophils Absolute Auto 5.2 2.0 - 8.3 x10*3/uL [facility] Imm Gran Abs Auto 0.04(H) 0.00 - 0.03 X10*3/uL [facility] Lymphocytes Absolute Auto 2.2 1.2 - 4.9 X10*3/uL [facility] Monocytes Absolute Auto 0.9 0.1 - 1.2 X10*3/uL [facility] Eosinophils Absolute Auto 0.5(H) 0.0 - 0.4 X10*3/uL [facility] Basophils Absolute Auto 0.1 0.0 - 0.2 X10*3/uL [facility] NRBC Abs Auto 0.000 0.0 - 0.012 X10*3/uL [facility] 02/27/2025 5:08 PM EDT 02/27/2025 5:20 PM EDT Generic External Data Provider LAB BLOOD ORDERAB LES Final Result Performing Organization Address [facility] Co de Phone Number [facility] [address] [place] [phone] * (ABNORMAL) Sed Rate by Modified Westergren (02/27/2025 5:08 PM EDT) Erythrocyte Sedimentation Rate 23(H) 0 - 20 MM/HR [facility] Comment:Patients with polycy themia and many hemoglobin abnormalitiesmay have depressed sed rates whereas patients with anemiamay have elevated sed rates. 02/27/2025 5:08 PM EDT 02/27/2025 5:20 PM EDT Generic External Data Provider LAB BLOOD ORDERAB LES Final Result Performing Organization Address [facility] Co de Phone Number [facility] [address] [place] [phone] * C-reactive Protein (02/27/2025 5:08 PM EDT) Only the most recent of2 resultswithin the time period is included. C Reactive Protein 0.15 < or = 0.50 mg/dL [facility] 02/27/2025 5:08 PM EDT 02/27/2025 5:20 PM EDT Generic External Data Provider LAB BLOOD ORDERAB LES Final Result Performing Organization Address [facility] Co de Phone Number [facility] [address] [place] [phone] * Lipase (02/27/2025 5:08 PM EDT) Lipase 38 8 - 78 U/L [facility] 02/27/2025 5:08 PM EDT 02/27/2025 5:20 PM EDT Generic External Data Provider LAB BLOOD ORDERAB LES Final Result Performing Organization Address [facility] de Phone Number [facility] [address] [place] [phone] * (ABNORMAL) Hepatic Function Panel (02/27/2025 5:08 PM EDT) Bilirubin, Total 0.3 0.0 - 1.0 mg/dL [facility] Bilirubin, Direct 0.1 0.0 - 0.5 mg/dL [facility] Aspartate Amino Transferase 35(H) 5 - 31 U/L [facility] Comment:Slight Hemolysis.Int erpret result with caution. Alanine Aminotransferase 24 0 - 31 U/L [facility] Total Protein 7.4 6.5 - 8.0 g/dL [facility] Albumin Level 4.3 3.5 - 5.0 g/dL [facility] Alkaline Phosphatase 158(H) 39 - 117 U/L [facility] 02/27/2025 5:08 PM EDT 02/27/2025 5:20 PM EDT Generic External Data Provider LAB BLOOD ORDERAB LES Final Result Performing Organization Address [facility] de Phone Number [facility] [address] [place] [phone] * (ABNORMAL) Basic Metabolic Panel (02/27/2025 5:08 PM EDT) Sodium 140 135 - 145 mmol/L [facility] Potassium 4.1 3.3 - 5.1 mmol/L [facility] Comment:Slight Hemolysis.Int erpret result with caution. Chloride 102 96 - 108 mmol/L [facility] Carbon Dioxide 28 22 - 29 mmol/L [facility] Anion Gap 14 12 - 20 [facility] Urea Nitrogen (BUN) 21(H) 9 - 16 mg/dL [facility] Creatinine, Serum 0.98 0.5 - 1.4 mg/dL [facility] Creatinine Clr Calc Pharmacy 45.3 [facility] Comment:Provided height and weight: 157.48 cm,61.235 kg.eGFR (calculated from the MDRD study equation) and eCrCl(calculated from the Cockcroft-Gault equation) are based ondifferent parameters and may not yield comparable results.If eCrCl result is absurd, please check patient'sheight/weight. Estimated Glomerular Filt Rate 56 [facility] Comment:Chronic Kidney Disea se: Estimated GFR < 60 mL/min/1.49n7Hcjzck Kidney Disease: Estimated GFR < 15 mL/min/1.73m2 Glucose 120(H) 60 - 115 mg/dL [facility] Calcium 9.7 8.4 - 10.2 mg/dL [facility] 02/27/2025 5:08 PM EDT 02/27/2025 5:20 PM EDT us Generic External Data Provider LAB BLOOD ORDERAB LES Final Result [facility] [address] [place] [phone] * (ABNORMAL) Urinalysis, Complete, with Reflex to Culture (02/12/2025 8:45 PM EDT) Only the most recent of2 resultswithin the time period is included. Color Urine Yellow [facility] Appearance Urine Clear [facility] PH 6.5 5.0 - 9.0 [facility] Glucose Urine UA >=1000(A) Negative mg/dL [facility] Urine Blood Negative Negative [facility] Specific [place] - Urine 1.015 1.005 - 1.025 [facility] Urine Protein Negative Neg-Trace mg/dL [facility] Urine Ketones Negative Negative mg/dL [facility] Nitrite Urine Negative Negative [facility] Leukocyte Esterase Urine Negative Negative [facility] RBC Urine 0-2 0 - 2 /HPF [facility] Urine WBC 0-5 0 - 5 /HPF [facility] Urine Squamous Epithelial Cell 0-2 0 - 2 /HPF [facility] Urine Bacteria None Seen None Seen [facility] Hyaline Casts, Urine 0-2 0 - 2 /LPF [facility] 02/12/2025 8:45 PM EDT 02/12/2025 8:50 PM EDT Narrative [facility] - 02/12/2025 9:07 PM EDT Urine, Clean Catch us Generic External Data Provider LAB URINE ORDERAB LES Final Result Performing Organization Address City/State/[facility] Co de Phone Number [facility] [address] [place] [phone] * CT Chest w/ Contrast (02/12/2025 8:43 PM EDT) Anatomical Region Laterality Modality Body, Chest Computed Tomogra phy 02/12/2025 8:43 PM EDT Narrative 02/12/2025 8:45 PM EDT [place] [address] [address] Scan Report Signed Patient: Sonia Marcnao MR#: [id number] 5 : 1955 Acct:[id number] Age/Sex: 69 / F ADM Date: 02/12/25 Loc: HO.ED Attending Dr: Ordering Physician: Lanny Beal Date of Service: 02/12/25 Procedure(s): CT chest w IV con Accession Number(s): [id number] cc: Shawna Gamble; Lanny Beal Report Number: [id number]: Total DLP = 198.00 mGy-cm Reason for Exam: fall R posterior chest wall pain on thinners CLINICAL HISTORY: fall R posterior chest wall pain on thinners CT chest with contrast Comparison: CT/SR - CT CHEST W IV CON - 10/28/24 18:08 EDT Findings: The heart size is normal. There is moderate atherosclerotic disease of the coronary arteries. No significant mediastinal adenopathy or pericardial effusion. No thyroid lesion identified. Nonspecific streaky density within the anterior right lower lobe, axial 69, similar to prior. No effusion or pneumothorax. No displaced rib fracture. Reformatted imaging of the thoracic spine demonstrates no acute fracture. Impression: No definite acute process in the chest. Incidental findings as detailed. This document has been electronically signed by: Sonny Han MD on 02/12/2025 20:43:41 Dictated By: Sonny Han MD Signed By: <Electronically signed by Sonny Han MD in OV> 02/12/252043 DD/ 42 TD/TT: 02/12/252042 Nurse Anesthetist: Procedure Note Donotuseinterpreter, Image - 02/12/[address] [place] [address] [address] Scan Report Signed Patient: Sonia MarcanoMR#: [id number] 5 : 4Acct:[id number] Age/Sex: 69 / FADM Date: 02/12/25 Loc: HO.ED Attending Dr: Ordering Physician: Lanny Beal Date of Service: 02/12/25 Procedure(s): CT chest w IV con Accession Number(s): [id number] cc: Shawna Gamble; Lanny Beal Report Number: [id number]: Total DLP = 198.00 mGy-cm Reason for Exam: fall R posterior chest wall pain on thinners CLINICAL HISTORY: fall R posterior chest wall pain on thinners CT chest with contrast Comparison: CT/SR - CT CHEST W IV CON - 10/28/24 18:08 EDT Findings: The heart size is normal. There is moderate atherosclerotic disease of the coronary arteries. No significant mediastinal adenopathy or pericardial effusion. No thyroid lesion identified. Nonspecific streaky density within the anterior right lower lobe, axial 69, similar to prior. No effusion or pneumothorax. No displaced rib fracture. Reformatted imaging of the thoracic spine demonstrates no acute fracture. Impression: No definite acute process in the chest. Incidental findings as detailed. This document has been electronically signed by: Sonny Han MD on 02/12/2025 20:43:41 Dictated By: Sonny Han MD Signed By: <Electronically signed by Sonny Han MD in OV> 02/12/252043 DD/ 42 TD/TT: 02/12/252042 Nurse Anesthetist: [facility] External Provider IMG CT PROCEDURES Final Result * CT Abdomen Pelvis w/ Contrast (02/12/2025 8:38 PM EDT) Anatomical Region Laterality Modality Body, Pelvis, Abdomen Computed T omography 02/12/2025 8:38 PM EDT Narrative 02/12/2025 8:39 PM EDT [place] [address] CT Scan Report Signed Patient: Sonia Marcano MR#: [id number] 5 : 1955 Acct:[id number] Age/Sex: 69 / F ADM Date: 02/12/25 Loc: HO.ED Attending Dr: Ordering Physician: Lanny Beal Date of Service: 02/12/25 Procedure(s): CT abdomen pelvis w IV con Accession Number(s): [id number] cc: Shawna Gamble; Lanny Beal Report Number: [id number]: Total DLP = 416.00 mGy-cm Reason for Exam: fall R flank pain/bruising on thinners CLINICAL HISTORY: fall R flank pain bruising on thinners CT abdomen and pelvis with contrast Comparison: 10/28/2024 Findings: Lung bases demonstrate mild dependent change and/or scarring. The gallbladder is absent. The liver, spleen, adrenal glands and pancreas are unremarkable. Kidneys and ureters are normal. The bladder is significantly distended. Uterus and adnexa are unremarkable. The colon demonstrates diffuse dilation and fecal retention. Several stones are present within the cecal base. Appendix not definitively identified. Severe atherosclerotic disease. Degenerative changes seen within the spine. No definite acute osseous abnormality. Impression: No definite acute process. Fecal retention throughout the colon. Significant bladder distention, nonspecific. This document has been electronically signed by: Sonny Han MD on 02/12/2025 20:38:28 Dictated By: Sonny Han MD Signed By: <Electronically signed by Sonny Han MD in OV> 02/12/252038 DD/ 37 TD/TT: 02/12/252037 Nurse Anesthetist: Procedure Note Donotuseinterpreter, Image - 02/12/[address] [address] [address] Scan Report Signed Patient: Sonia MarcanoMR#: [id number] 5 : 1955cct:[id number] Age/Sex: 69 / FADM Date: 02/12/25 Loc: HO.ED Attending Dr: Ordering Physician: Lanny Beal Date of Service: 02/12/25 Procedure(s): CT abdomen pelvis w IV con Accession Number(s): [id number] cc: Shawna Gamble; Lanny Beal Report Number: [id number]: Total DLP = 416.00 mGy-cm Reason for Exam: fall R flank pain/bruising on thinners CLINICAL HISTORY: fall R flank pain bruising on thinners CT abdomen and pelvis with contrast Comparison: 10/28/2024 Findings: Lung bases demonstrate mild dependent change and/or scarring. The gallbladder is absent. The liver, spleen, adrenal glands and pancreas are unremarkable. Kidneys and ureters are normal. The bladder is significantly distended. Uterus and adnexa are unremarkable. The colon demonstrates diffuse dilation and fecal retention. Several stones are present within the cecal base. Appendix not definitively identified. Severe atherosclerotic disease. Degenerative changes seen within the spine. No definite acute osseous abnormality. Impression: No definite acute process. Fecal retention throughout the colon. Significant bladder distention, nonspecific. This document has been electronically signed by: Sonny Han MD on 02/12/2025 20:38:28 Dictated By: Sonny Han MD Signed By: <Electronically signed by Sonny Han MD in OV> 02/12/252038 DD/ 37 TD/TT: 02/12/252037 Nurse Anesthetist: us [facility] External Provider IMG CT PROCEDURES Final Result * CT Cervical Spine w/o Contrast (02/12/2025 6:19 PM EDT) Only the most recent of2 resultswithin the time period is included. Anatomical Region Laterality Modality Spine, C-spine Computed Tomogra phy 02/12/2025 6:19 PM EDT Narrative 02/12/2025 6:20 PM EDT [address] [address] [address] Scan Report Signed Patient: Sonia Marcano MR#: [id number] 5 : 1955 Acct:[id number] Age/Sex: 69 / F ADM Date: 02/12/25 Loc: HO.ED Attending Dr: Ordering Physician: Kady Sibley Date of Service: 02/12/25 Procedure(s): CT cervical spine wo IV con Accession Number(s): [id number] cc: Kady Sibley; Shawna Gamble Report Number: [id number]: Total DLP = 0.00 mGy-cm Reason for [...] in OV> 02/12/251818 DD/ 18 TD/TT: 02/12/251818 Nurse Anesthetist: Procedure Note Donotuseinterpreter, Image - 02/12/[address] [address] [address] Scan Report Signed Patient: Sonia MarcanoMR#: [id number] 5 : 4Acct:[id number] Age/Sex: 69 / FADM Date: 02/12/25 Loc: HO.ED Attending Dr: Ordering Physician: Kady Sibley Date of Service: 02/12/25 Procedure(s): CT cervical spine wo IV con Accession Number(s): [id number] cc: Kady Sibley; Shawna Gamble Report Number: [id number]: Total DLP = 0.00 mGy-cm Reason for [...] in OV> 02/12/251818 DD/ 18 TD/TT: 02/12/251818 Nurse Anesthetist: us [facility] External Provider IMG CT PROCEDURES Final Result * CT Head w/o Contrast (02/12/2025 6:09 PM EDT) Only the most recent of2 resultswithin the time period is included. Anatomical Region Laterality Modality Head, Neck Computed Tomogra phy 02/12/2025 6:09 PM EDT Narrative 02/12/2025 6:10 PM EDT [place] [address] [address] Scan Report Signed Patient: Sonia Marcano MR#: [id number] 5 : 1955 Acct:[id number] Age/Sex: 69 / F ADM Date: 02/12/25 Loc: HO.ED Attending Dr: Ordering Physician: Kady Sibley Date of Service: 02/12/25 Procedure(s): CT head/brain wo IV con Accession Number(s): [id number] cc: Kady Sibley; Shawna Gamble Report Number: [id number]: Total DLP = 920.00 mGy-cm Reason for [...] signed by Sonny Han MD in OV> 02/12/25 181 DD/ 180 TD/TT: 02/12/25 180 Nurse Anesthetist: Procedure Note Donotuseinterpreter, Image - 02/12/[address] [address] [address] Scan Report Signed Patient: Sonia MarcanoMR#: [id number] 5 : 4Acct:[id number] Age/Sex: 69 / FADM Date: 02/12/25 Loc: HO.ED Attending Dr: Ordering Physician: Kady Sibley Date of Service: 02/12/25 Procedure(s): CT head/brain wo IV con Accession Number(s): [id number] cc: Kady Sibley; Shawna Gamble Report Number: [id number]: Total DLP = 920.00 mGy-cm Reason for [...] in OV> 02/12/251809 DD/ 180 TD/TT: 02/12/251808 Nurse Anesthetist: [facility] External Provider IMG CT PROCEDURES Final Result * Prothrombin Time-INR (02/12/2025 5:02 PM EDT) Prothrombin Time 11.8 10.9 - 12.4 SEC [facility] INTERNATIONAL NORM RATIO 1.0 0.9 - 1.1 [facility] Comment:INTERNATIONAL NORMAL IZED RATIO (INR) [...] ORDERAB LES Final Result Performing Organization Address City/[facility]/ZIP Co de Phone Number [facility] [address] [place] [address] [phone] * (ABNORMAL) Magnesium (02/12/2025 5:02 PM EDT) Only the most recent of2 resultswithin the time period is included. Magnesium 1.5(L) 1.6 - 2.6 mg/dL [facility] 02/12/2025 5:02 PM EDT 02/12/2025 5:09 PM EDT Generic External Data Provider LAB BLOOD ORDERAB LES Final Result Performing Organization Address [facility] Co de Phone Number [facility] [address] [place] [address] [phone] * (ABNORMAL) Comprehensive Metabolic Panel (02/12/2025 5:02 PM EDT) Sodium 139 135 - 145 mmol/L [facility] Potassium 4.1 3.3 - 5.1 mmol/L [facility] Chloride 101 96 - 108 mmol/L [facility] Carbon Dioxide 25 22 - 29 mmol/L [facility] Anion Gap 17 12 - 20 [facility] Urea Nitrogen (BUN) 18(H) 9 - 16 mg/dL [facility] Creatinine, Serum 1.12 0.5 - 1.4 mg/dL [facility] Creatinine Clr Calc Pharmacy 39.8 [facility] Comment:Provided height and weight: 162.56 cm,61.5 kg.eGFR (calculated from the MDRD study equation) and eCrCl(calculated from the Cockcroft-Gault equation) are based ondifferent parameters and may not yield comparable results.If eCrCl result is absurd, please check patient'sheight/weight. Estimated Glomerular Filt Rate 48 [facility] Comment:Chronic Kidney Disea se: Estimated GFR < 60 mL/min/1.59e8Whujrl Kidney Disease: Estimated GFR < 15 mL/min/1.73m2 Glucose 180(H) 60 - 115 mg/dL [facility] Calcium 9.9 8.4 - 10.2 mg/dL [facility] Bilirubin, Total 0.2 0.0 - 1.0 mg/dL [facility] Aspartate Amino Transferase 49(H) 5 - 31 U/L [facility] Alanine Aminotransferase 36(H) 0 - 31 U/L [facility] Total Protein 7.5 6.5 - 8.0 g/dL [facility] Albumin Level 4.6 3.5 - 5.0 g/dL [facility] Alkaline Phosphatase 136(H) 39 - 117 U/L [facility] 02/12/2025 5:02 PM EDT 02/12/2025 5:09 PM EDT us Generic External Data Provider LAB BLOOD ORDERAB LES Final Result Performing Organization Address City/State/[facility] Co de Phone Number [facility] [address] [place] [phone] * XR Hip 2 or 3 Views Right (01/08/2025 5:00 PM EDT) Anatomical Region Laterality Modality Lower Extremities, Hip Right Radiograp hic Imaging 01/08/2025 5:00 PM EDT Narrative 01/08/2025 5:27 PM EDT [address] [address] XRay Report Signed Patient: Sonia Marcano MR#: [id number] 5 : 1955 Acct:[id number] Age/Sex: 69 / F ADM Date: 01/08/25 Loc: ALYSHA Attending Dr: Shawna Gamble MD Ordering Physician: Shawna Gamble Date of Service: 01/08/25 Procedure(s): XR hip RT min 2V Accession Number(s): [id number] cc: Shawna Gamble EXAMINATION: XR HIP, RIGHT [...] 01/08/25 1724 DD/ 1700 TD/TT: 01/08/25 1715 Nurse Anesthetist: Procedure Note Donotuseinterpreter, Image - 01/08/2025 [place] [address] XRay Report Signed Patient: Sonia MarcanoMR#: [id number] 5 : 4Acct:[id number] Age/Sex: 69 / FADM Date: 01/08/25 Loc: HO.XRAY Attending Dr: Shawna Gamble MD Ordering Physician: Shawna Gamble Date of Service: 01/08/25 Procedure(s): XR hip RT min 2V Accession Number(s): [id number] cc: Shawna Gamble EXAMINATION: XR HIP, RIGHT [...] 01/08/25 1724 DD/ 1700 TD/TT: 01/08/25 1715 Nurse Anesthetist: Shawna Gamble MD IMG XR PROCEDURES Final Result * (ABNORMAL) POCT HGB A1C (01/08/2025 3:48 PM EDT) [facility] Hemoglobin A1C 8.3(A) 4.0 - 5.7 % Blood 01/08/2025 3:48 PM EDT Shawna Gamble MD POINT OF CARE TEST ENTER/EDIT ORDERABLES Final Result * (ABNORMAL) POCT Glucose (01/08/2025 3:48 PM EDT) [facility] Glucose Blood, POC 235(A) 60 - 200 mg/dL Blood Capillary blood specimen / Unknown 01/08/2025 3:48 PM EDT Shawna Gamble MD POINT OF CARE TEST ENTER/EDIT ORDERABLES Final Result * Drug Monitoring, Panel 1, Screen, Urine (01/01/2025 10:04 PM EDT) [facility] Opiate Screen Urine Not Detected Not Detect [facility] Comment:Opiate cut-off is 30 0 ng/mL.Positive results are unconfirmed and should not be used fornon-medical purposes. Barbiturates, Urine Not Detected Not Detect [facility] Comment:Barbiturate cut-off is 200 ng/mL.Positive results are unconfirmed and should not be used fornon-medical purposes. Phencyclidine Screen Urine Not Detected Not Detect [facility] Comment:Phencyclidine cut-of f is 25 ng/mL.Positive results are unconfirmed and should not be used fornon-medical purposes. Amphetamine Screen Urine Not Detected Not Detect [facility] Comment:Amphetamine cut-off is 1000 ng/mL.Positive results are unconfirmed and should not be used fornon-medical purposes. Benzodiazepines Screen Urine Not Detected Not Detect [facility] Comment:Benzodiazepine cut-o ff is 200 ng/mL.Positive results are unconfirmed and should not be used fornon-medical purposes. Cocaine Screen Urine Not Detected Not Detect [facility] Comment:Cocaine cut-off is 3 00 ng/mL.Positive results are unconfirmed and should not be used fornon-medical purposes. Cannabinoid Screen Urine Not Detected Not Detect [facility] Comment:Cannabinoid cut-off is 50 ng/mL.Positive results are unconfirmed and should not be used fornon-medical purposes. Methadone Screen, Urine Not Detected Not Detect ng/mL [facility] Comment:Methadone cut-off is 300 ng/mL.Positive results are unconfirmed and should not be used fornon-medical purposes. FENTANYL URINE Not Detected Not Detect [facility] Comment:Fentanyl cut-off is 1 ng/mL.Positive results are unconfirmed and should not be used fornon-medical purposes. Oxycodone Urine Screen Not Detected Not Detect ng/mL [facility] Comment:Oxycodone cut-off is 100 ng/mL.Positive results are unconfirmed and should not be used fornon-medical purposes. Buprenorphine Screen Not Detected Not Detect ng/mL [facility] Comment:Buprenorphine cut-of f is 5 ng/mL.Positive results are unconfirmed and should not be used fornon-medical purposes. 01/01/2025 10:0 4 PM EDT 01/01/2025 10:08 PM EDT us Generic External Data Provider LAB URINE ORDERAB LES Final Result [facility] [address] [place] [phone] [phone] * Vitamin D, 25-Hydroxy, Total, Immunoassay (12/28/2024 3:06 PM EDT) Vitamin D 25-OH Total 58.1 >30 ng/mL [facility] Comment: Health Based Reference Values*< 20 ng/mL Ufxbtjqqe00-57 ng/mL Insufficient> 30 ng/mL Sufficient*Norma TREVINO. N [...] Final Result Performing Organization Address [facility] Co de Phone Number [facility] [address] [place] [phone] * Iron And Total Iron Binding Capacity (12/28/2024 3:06 PM EDT) Iron 87 30 - 160 mcg/dL [facility] Total Iron Binding Capacity 291 228 - 428 mcg/dL [facility] Percent Iron Saturation 30 15 - 50 % [facility] Unsaturated Iron Binding 204 ug/dL [facility] 12/28/2024 3:06 PM EDT 12/28/2024 3:06 PM EDT us Generic External Data Provider LAB BLOOD ORDERAB LES Final Result Performing Organization Address City/[facility]/ZIP Co de Phone Number [facility] [address] [place] [phone] * Ferritin (12/28/2024 3:06 PM EDT) Ferritin 65 10 - 250 ng/mL [facility] 12/28/2024 3:06 PM EDT 12/28/2024 3:06 PM EDT us Generic External Data Provider LAB BLOOD ORDERAB LES Final Result Performing Organization Address City/[facility]/ZIP Co de Phone Number [facility] [address] [place] [address] [phone] * (ABNORMAL) Lipid Panel, Standard (10/20/2024 10:23 AM EDT) Triglycerides 98 <150 mg/dL [facility] Comment:Desirable Triglyceri de: less than 150 mg/dLBorderline High Triglyceride 150-199 mg/dLHigh Triglyceride: 200-499 mg/dLVery High Triglyceride: greater than or equal to 5OO mg/dL Cholesterol 103 <200 mg/dL [facility] Comment:Desirable Cholestero l: less than 200 mg/dLBorderline High Cholesterol: 200-239 mg/dLHigh Cholesterol: greater than 239 mg/dL LDL Cholesterol Calculated 44 <100 mg/dL [facility] Comment:Desirable LDL: less than 100 mg/dLNear Optimal/Above Optimal LDL: 110- 129 mg/dLBorderline High LDL: 130-159 mg/dLHigh LDL: 160-189 mg/dLVery High LDL: greater than or equal to 190 mg/dL HDL Cholesterol 40(L) >40 mg/dL [facility] Comment:Desirable HDL: great er than 40 mg/dL Note: This HDL assay may give artificially low results in patients with liver disease. Blood Venous blood specimen / Unknown 10/20/2024 10:23 AM EDT 10/20/2024 10:23 AM EDT us Shawna Gamble MD LAB BLOOD ORDERABLES Final Res ult [facility] [address] [place] [phone] * (ABNORMAL) Albumin, Random Urine W/Creatinine (10/20/2024 10:18 AM EDT) Creatinine, Urine 54.62 mg/dL [facility] Microalbumin Urine 75.0 mg/L H [facility] Microalbum Creatinine Ratio Ur 137.3(H) <30 ug/mg cr [facility] Comment:Albumin/Creatinine R atio Reference Ranges: Normal: < 30 ug/mg creatinine Microalbuminuria: 30 - 300 ug/mg creatinineClinical Albuminuria: > 300 ug/mg creatinine Urine (Urine, Random) 10/20/2024 10:18 AM EDT 10/20/2024 11:55 AM EDT us Shawna Gamble MD LAB URINE ORDERABLES Final Res ult Performing Organization Address City/State/[facility] Co de Phone Number [facility] [address] [place] [phone] * BI Mammogram Screening Tomosynthesis Bilateral (06/30/2024 2:15 PM EST) Anatomical Region Laterality Modality Breast Bilateral Mammography 06/30/2024 2:15 PM EST Narrative 07/08/2024 1:56 PM EST [facility] [address] [place] [address] Mammography Report Signed Patient: Sonia Marcano MR#: [id number] 5 : 1955 Acct:[id number] Age/Sex: 68 / F ADM Date: 06/30/24 Loc: HO.MAMMO Attending Dr: Shawna Gamble MD Ordering Physician: Shawna Gamble Results: 1Negative Date of Service: 06/30/24 Follow Up: 1 Year From Orig ina Mammogram Procedure(s): MM tomosynthesis screening BI Accession Number(s): [id number] cc: Shawna Gamble EXAMINATION: MM SCREENING DIGITAL [...] 07/08/24 1353 DD/ 1415 TD/TT: 06/30/24 1426 Nurse Anesthetist: Procedure Note Donotuseinterpreter, Image - 07/08/2024 [place] [facility] [address] [place], [place] [address] Mammography Report Signed Patient: Sonia MarcanoMR#: [id number] 5 : 4Acct:[id number] Age/Sex: 68 / FADM Date: 06/30/24 Loc: HO.MAMMO Attending Dr: Shawna Gamble MD Ordering Physician: Tera Gambleults: 1Negative Date of Service: 06/30/24Follow Up: 1 Year From Orig inal Mammogram Procedure(s): MM tomosynthesis screening BI Accession Number(s): [id number] cc: Shawna Gamble EXAMINATION: MM SCREENING DIGITAL [...] by: Larissa Kendall DO 07/08/2024 01:[address] [facility] Dictated By: Larissa Kendall DO Signed By: <Electronically signed by Larissa Kendall DO in OV> 07/08/24 1353 DD/ 1415 TD/TT: 06/30/24 1426 Nurse Anesthetist: Shawna Gamble MD IMG BI PROCEDURES Edited Resul t - Final * Hepatitis C Ab (10/30/2022 9:18 AM EDT) Hepatitis C Antibody Nonreactive Nonreactive [facility] Comment:Antibodies to HCV no t detected; does not exclude early acuteHCV infection. 10/30/2022 9:18 AM EDT 10/30/2022 9:18 AM EDT [facility] External Provider LAB BLO OD ORDERABLES Final Result [facility] [address] [place] [phone] * Hm Colonoscopy (10/11/2020 9:13 AM EDT) Historical Provider HEALTH MAINTENANCE Final Result from Last 3 Months or Most Recently Relevant to Health Maintenance Insurance [facility] [place] DENTAL [facility] * Guarantor: Sonia Marcano Account Type Relation to Patient Date of Phone Billing Address Personal/Family Self [address] [facility] [place] Care Teams Cuffing Machine Operator Relationship Specialty Start Date End Date Shawna Gamble MD [address] [place] [address] [place] PCP - General Family Medicine 05/13/22 [employer] 01/22/25
--- OUTSIDE RECORDS SUMMARY | 2025-02-27 18:34 | XMS_ITS | Encounter Summary ---
Author Organization [facility] Address [address] [place] [address] 7 [place] [address] Care Team Providers Care Document Control Supervisor Name Role Phone Makenna Trinidad MD Primary Care Provider Daphneyal Shawna Kirkland MD Primary Care Provider [phone] Encounter Details Date Type Department Care Team (Latest Contact Info) Description 08/23/2018 Abstract [facility] CONVERSIONS Dental, Provider, DDS Social History [...] Description 03/02/2025 11:00 AM EDT Medication Management [facility] [address] [place] [address] Apurva Corona, PharmD [address] [place] [address] documented as of this encounter Visit Diagnoses Not on filedocumented in this encounter Care Teams Document Control Supervisor Relationship Specialty Start Date End Date Makenna Trinidad MD PCP - General Family Medicine 03/24/19 05/12/22 Shawna Gamble MD [address] [place] [address] PCP - General Family Medicine 05/13/22 [employer] 01/22/25 documented as of this encounter
--- OUTSIDE RECORDS SUMMARY | 2025-02-27 18:34 | XMS_ITS | Encounter Summary ---
Author Organization [facility] Address [address] [place] [address] Phone Care Team Providers Care Software Engineer Mobile Name Role Phone Reena Marinelli Primary Care Provider [phone] Encounter Details Date Type Department Care Team (Late st Contact Info) Description 08/24/2019 Ancillary Orders [facility] [address] [place] [address] [place] [address] Reena Marinelli PA [address] [place] [address] [email or web address] Social History Tobacco Use Types Packs/Day [...] Palpitations documented in this encounter Care Teams Software Engineer Mobile Relationship Specialty Start Date End Date Reena Marinelli PA [address] [place] [address] [email or web address] PCP - General Automobile Leasing Supervisor 08/18/19 documented as of this encounter Additional Source Comments The information contained in this document represents components of the legal health record. It is not the complete legal health record.[facility]
--- OUTSIDE RECORDS SUMMARY | 2025-02-27 18:34 | XMS_ITS | Encounter Summary ---
Author Organization [employer] Address [address] [place] [address] Care Team Providers Care Rodding Anode Worker Name Role Phone Shawna Gamble MD Primary Care Provider [phone] Reason for Visit * Reason Onset Date Comments Nurse Triage 02/27/2025 Encounter Details Date Type Department Care Team ([facility] st Contact Info) Description 02/27/2025 Telephone [facility] [address] [place], [place] [phone] Shawna Gamble MD [address] [place], [place] [phone] Nurse Triage Social History Tobacco Use Types Packs/Day Years [...] encounter Miscellaneous Notes * Telephone Encounter - Zuleyka Jordan RN - 02/27/2025 10:56 AM EDT TC placed to pt at provided phone number [phone] via [employer] instructor modeling ([employer] ID#[id number]) for triage. Pt reports they were dizzy and had a fall about two weeks ago. Pt reports they were taken by ambulance for evaluation and studies were done. Pt reports they ruled out any fractures. Pt reports 9/10 back and hip pain that has been present since the fall. Pt reports they feel the pain was improving but has since returned to 9/10 pain. Pt denies numbness or new injury/fall. Pt reports they have been taking tylenol every 8 hours with no relief. Pt offered appointment with [facility] at 11:30 today 02/27/25. Pt declines appointment as they will not make it in time. Pt advised to come to [facility] for evaluation today. Pt reports they will try to come to [facility] for evaluation. Advised pt of [facility] hours ofoperation and extended hours this evening. Pt verbalized understanding and denies questions at thistime. Multiple (3) protocols were used on this call. Disposition for Call: Go to Office or Video Visit Now Protocol Used: Back Injury (Adult) Protocol-Based Disposition: Go to Office or Video Visit Now Video visit offer not recorded Positive Triage Questions: * Severe back pain (e.g., excruciating, unable to do any normal activities) and not improved after pain medicine and Care Advice * Patient wants to be seen * Injury is still painful or swollen after 2 weeks * All higher-acuity triage questions were negative Care Advice Discussed: * Reasons To Call Back - Severe pain lasts over 2 hours after pain medicine and ice - You become worse Protocol Used: Hip Injury (Adult) Protocol-Based Disposition: See in Office or Video Visit Today Positive Triage Questions: * Patient wants to be seen * Injury is still painful or swollen after 2 weeks * All higher-acuity triage questions were negative Care Advice Discussed: * Reasons To Call Back - Severe pain lasts over 2 hours after pain medicine and ice pack - You become worse Protocol Used: Falls and Falling (Adult) Protocol-Based Disposition: See in Office or Video Visit within 2 Weeks Positive Triage Question: * Falling (two or more unexpected falls) and in past year * All higher-acuity triage questions were negative Care Advice Discussed: * Reasons To Call Back * Telephone Encounter - Luis Manuel Smith - 02/27/2025 10:43 AM EDT Symptom: Fall Outcome: Schedule an urgent appointment (within 1 hour) or talk to a nurse or provider soon Reason: Getting worse The caller accepted this outcome. Contact pt at [phone] (iranian) documented in this encounter Plan of Treatment Upcoming Encounters Date Type Department Care Team (Late st Contact Info) Description 03/02/2025 11:00 AM EDT Medication Management [facility] [address] [place] [address] Apurva Corona, PharmD [address] [place], [place] [phone] documented as of this encounter Visit Diagnoses Not on filedocumented in this encounter Additional Health Concerns Assessment Noted Time PHQ-9 Depression Total Score: 6 10/19/19 25 11:41 AM EDT documented as of this encounter Care Teams Rodding Anode Worker Relationship Specialty Start Date End Date Shawna Gamble MD [address] [place] [address] PCP - General Family Medicine 05/13/22 [employer] 01/22/25 documented as of this encounter
--- OUTSIDE RECORDS SUMMARY | 2025-02-27 18:34 | XMS_ITS | Encounter Summary ---
Author Organization [employer] Address [address] [place] [address] 7t [place] [address] Care Team Providers Care Electronic Bench Technician Name Role Phone Shawna Gamble MD Primary Care Provider [phone] Encounter Details Date Type Department Care Team (Late st Contact Info) Description 02/27/2025 Orders Only GENERIC EXTERNAL DATA [...] Description 03/02/2025 11:00 AM EDT Medication Management [facility] MEDICINE [address] [place], [place] [phone] Apurva Corona, PharmD [address] [place] [address] documented as of this encounter Procedures Procedure Name Priority Date/Time Associated Diagnosis Comments HOLD LAVENDER - POSSIBLE HEMATOLOGY Routine 02/27/2025 5:08 PM EDT HIGH SENSITIVITY TROPONIN I Routine 02/27/2025 5:08 PM EDT CBC WITH AUTO DIFFERENTIAL Routine 02/27/2025 5:08 PM EDT SED RATE BY MODIFIED WESTERGREN Routine 02/27/2025 5:08 PM EDT C-REACTIVE PROTEIN Routine 02/27/2025 5: 08 PM EDT LIPASE Routine 02/27/2025 5:08 PM EDT HEPATIC FUNCTION PANEL Routine 02/27/2025 5:08 PM EDT BASIC METABOLIC PANEL Routine 02/27/2025 5:08 PM EDT documented in this encounter Results * (ABNORMAL) Sed Rate by Modified Westergren (02/27/2025 5:08 PM EDT) Erythrocyte Sedimentation Rate 23(H) 0 - 20 MM/HR [facility] Comment:Patients with polycy themia and many hemoglobin abnormalitiesmay have depressed sed rates whereas patients with anemiamay have elevated sed rates. 02/27/2025 5:08 PM EDT 02/27/2025 5:20 PM EDT Generic External Data Provider LAB BLOOD ORDERAB LES Final Result Performing Organization Address [facility] de Phone Number [facility] [address] [place] [phone] * High Sensitivity Troponin I (02/27/2025 5:08 PM EDT) [facility] TROPONIN I HIGH SENSITIVITY <2.7 <3.5 - 17.0 ng/L [facility] Comment:The Goins high sens itivity Troponin-I results should beused in conjunction with other diagnostic information suchas ECG, clinical observations and information, and patientsymptoms to aid in the diagnosis of NH. 02/27/2025 5:08 PM EDT 02/27/2025 5:20 PM EDT Generic External Data Provider LAB BLOOD ORDERAB LES Final Result Performing Organization Address [facility] Phone Number [facility] [address] [place] [address] [phone] * Lipase (02/27/2025 5:08 PM EDT) [facility] Lipase 38 8 - 78 U/L [facility] 02/27/2025 5:08 PM EDT 02/27/2025 5:20 PM EDT Generic External Data Provider LAB BLOOD ORDERAB LES Final Result Performing Organization Address [facility] de Phone Number [facility] [address] [place] [phone] * C-reactive Protein (02/27/2025 5:08 PM EDT) C Reactive Protein 0.15 < or = 0.50 mg/dL [facility] 02/27/2025 5:08 PM EDT 02/27/2025 5:20 PM EDT us Generic External Data Provider LAB BLOOD ORDERAB LES Final Result [facility] [address] [place] [address] [phone] * (ABNORMAL) Basic Metabolic Panel (02/27/2025 5:08 PM EDT) Pathologist [facility] Sodium 140 135 - 145 mmol/L [facility] Potassium 4.1 3.3 - 5.1 mmol/L [facility] Comment:Slight Hemolysis.Int erpret result with caution. Chloride 102 96 - 108 mmol/L [facility] Carbon Dioxide 28 22 - 29 mmol/L [facility] Anion Gap 14 12 - 20 [facility] Urea Nitrogen (BUN) 21(H) 9 - 16 mg/dL [facility] Creatinine, Serum 0.98 0.5 - 1.4 mg/dL [facility] Creatinine Clr Calc Pharmacy 45.3 [facility] Comment:Provided height and weight: 157.48 cm,61.235 kg.eGFR (calculated from the MDRD study equation) and eCrCl(calculated from the Cockcroft-Gault equation) are based ondifferent parameters and may not yield comparable results.If eCrCl result is absurd, please check patient'sheight/weight. Estimated Glomerular Filt Rate 56 [facility] Comment:Chronic Kidney Disea se: Estimated GFR < 60 mL/min/1.32u7Mdlmzf Kidney Disease: Estimated GFR < 15 mL/min/1.73m2 Glucose 120(H) 60 - 115 mg/dL [facility] Calcium 9.7 8.4 - 10.2 mg/dL [facility] 02/27/2025 5:08 PM EDT 02/27/2025 5:20 PM EDT us Generic External Data Provider LAB BLOOD ORDERAB LES Final Result Performing Organization Address [facility] Co de Phone Number [facility] [address] [place] [phone] * (ABNORMAL) Hepatic Function Panel (02/27/2025 5:08 PM EDT) Bilirubin, Total 0.3 0.0 - 1.0 mg/dL [facility] Bilirubin, Direct 0.1 0.0 - 0.5 mg/dL [facility] Aspartate Amino Transferase 35(H) 5 - 31 U/L [facility] Comment:Slight Hemolysis.Int erpret result with caution. Alanine Aminotransferase 24 0 - 31 U/L [facility] Total Protein 7.4 6.5 - 8.0 g/dL [facility] Albumin Level 4.3 3.5 - 5.0 g/dL [facility] Alkaline Phosphatase 158(H) 39 - 117 U/L [facility] 02/27/2025 5:08 PM EDT 02/27/2025 5:20 PM EDT us Generic External Data Provider LAB BLOOD ORDERAB LES Final Result Performing Organization Address [facility] Co de Phone Number [facility] [address] [place] [phone] * (ABNORMAL) CBC auto differential (02/27/2025 5:08 PM EDT) White Blood Count 8.9 4.8 - 10.8 X10*3/uL [facility] Red Blood Count 3.85(L) 4.20 - 5.50 X10*6/uL [facility] Hemoglobin 10.9(L) 12.0 - 16.0 g/dl [facility] Hematocrit 34.2(L) 37.0 - 47.0 % [facility] Mean Corpuscular Volume 88.8 80.0 - 98.0 fL [facility] Mean Corpuscular Hemoglobin 28.3 27.0 - 33.0 pg [facility] Mean Corpuscular HGB Conc 31.9 31.0 - 35.0 g/dl [facility] Red Cell Distribution Width 15.5 11.0 - 16.0 % [facility] Platelet Count 284 160 - 400 X10*3/uL [facility] Mean Platelet Volume 11.3 9.4 - 12.3 fL [facility] Neutrophils Percent Auto 58.4 45 - 73 % [facility] Imm Gran Pct Auto 0.4 0.0 - 0.4 % [facility] Lymphocytes Percent Auto 25.0 20 - 40 % [facility] Monocytes Percent Auto 9.6 2 - 11 % [facility] Eosinophils Percent Auto 5.6(H) 0 - 4 % [facility] Basophils Percent Auto 1.0 0 - 2 % [facility] NRBC Pct Auto 0.0 0.0 - 0.2 /100WBC [facility] Neutrophils Absolute Auto 5.2 2.0 - 8.3 x10*3/uL [facility] Imm Gran Abs Auto 0.04(H) 0.00 - 0.03 X10*3/uL [facility] Lymphocytes Absolute Auto 2.2 1.2 - 4.9 X10*3/uL [facility] Monocytes Absolute Auto 0.9 0.1 - 1.2 X10*3/uL [facility] Eosinophils Absolute Auto 0.5(H) 0.0 - 0.4 X10*3/uL [facility] Basophils Absolute Auto 0.1 0.0 - 0.2 X10*3/uL [facility] NRBC Abs Auto 0.000 0.0 - 0.012 X10*3/uL [facility] 02/27/2025 5:08 PM EDT 02/27/2025 5:20 PM EDT us Generic External Data Provider LAB BLOOD ORDERAB LES Final Result [facility] [address] [place] [phone] * Hold Lavender - Possible Hematology (02/27/2025 5:08 PM EDT) Hold Lavender - Possible Hematololgy SEE NOTE [facility] Comment:Specimen will be hel d untested for 8 hours. Call Hematologyif testing is desired. 02/27/2025 5:08 PM EDT 02/27/2025 5:21 PM EDT us Generic External Data Provider HISTORICAL/NON OR DERABLE LABS Final Result Performing Organization Address [facility] Co de Phone Number [facility] [address] [place] [phone] documented in this encounter Visit Diagnoses Not on filedocumented in this encounter Additional Health Concerns Assessment Noted Time PHQ-9 Depression Total Score: 6 10/19/19 25 11:41 AM EDT documented as of this encounter Care Teams Electronic Bench Technician Relationship Specialty Start Date End Date Shawna Gamble MD [address] [place] [address] PCP - General Family Medicine 05/13/22 [employer] 01/22/25 documented as of this encounter
--- OUTSIDE RECORDS SUMMARY | 2025-02-27 18:34 | XMS_ITS | Encounter Summary ---
Author Organization [employer] Address [address] [facility] 7t [place] [address] Care Team Providers Care Boom Master Name Role Phone Shawna Gamble MD Primary Care Provider [phone] Encounter Details Date Type Department Care Team ([facility] st Contact Info) Description 03/22/2023 Abstract [facility] MEDICINE [address] [place] [address] Shawna Gamble MD [address] [place], [place] [phone] Social History Tobacco Use Types Packs/Day Years [...] 11:00 AM EDT Medication Management [facility] MEDICINE [address] [place] [address] Apurva Corona, HennyD [address] [place] [address] documented as of this encounter Visit Diagnoses Not on filedocumented in this encounter Care Teams Boom Master Relationship Specialty Start Date End Date Shawna Gamble MD [address] [place] [address] PCP - General Family Medicine 05/13/22 [place] 01/22/25 documented as of this encounter
--- OUTSIDE RECORDS SUMMARY | 2025-02-27 18:34 | XMS_ITS | Encounter Summary ---
Author Organization [employer] Address [address] [place] [address] 7t [place] [address] Care Team Providers Care Precision Structural Metal Fitter Name Role Phone Shawna Gamble MD Primary Care Provider [phone] Encounter Details Date Type Department Care Team ([facility] st Contact Info) Description 11/25/2022 Telephone [facility] MEDICINE [address] [place], [place] [phone] Shawna Gamble MD [address] [place] [address] Social History Tobacco Use Types Packs/Day Years [...] for VNA services. Please contact edgardo at [phone] Fax number: [phone] documented in this encounter Plan of Treatment Upcoming Encounters Date Type Department Care Team (Late st Contact Info) Description 03/02/2025 11:00 AM EDT Medication Management [facility] MEDICINE [address] [place] [address] Apurva Corona PharmD [address] [place] [address] documented as of this encounter Visit Diagnoses Not on filedocumented in this encounter Care Teams Precision Structural Metal Fitter Relationship Specialty Start Date End Date Shawna Gamble MD [address] [place] [address] PCP - General Family Medicine 05/13/22 [employer] 01/22/25 documented as of this encounter
--- OUTSIDE RECORDS SUMMARY | 2025-02-27 18:35 | XMS_ITS | Encounter Summary ---
Author Organization [employer] Address [address] [facility] 7t [place] [address] Care Team Providers Care Cementing Machine Operator Name Role Phone Shawna Gamble MD Primary Care Provider [phone] Reason for Visit * Reason Onset Date Comments fyi 02/22/2025 Encounter Details Date Type Department Care Team ([facility] Contact Info) Description 02/22/2025 Telephone [facility] MEDICINE [address] [place], [place] [phone] Shawna Gamble MD [address] [place], [place] [phone] fyi Social History Tobacco Use Types Packs/Day [...] encounter Miscellaneous Notes * Telephone Encounter - Philly Mendoza RN - 02/22/2025 2:53 PM EDT TC returned to Deya [phone] who reports the patient had a fall last week and was seen in theED. Deya reports the patient had another fall last night (either going into bed or getting out ofbed-it was not clear). Deya reports the patients son was called and he was able to lift her up and place her in bed. Deya denies the patient hit her head during the fall. Deya reports the patients back was bruised already from last weeks fall and reports the patients pain is exacerbated d/t fall from yesterday however the patient is not in any distress and VS were stable today. Deya reports the patient does not want to be re-evaluated s/p this fall. Deya inquiring if patient has any upcoming appointments. RN informed Deya, patient had an appointment on 02/16/25 however it was cancelled. Deya reports she will have the patients son contact [facility] to r/s, Deya also informed [facility] didattempt to call today to schedule an appointment however we were unable to make contact. Deya verbalized understanding and will update PRN. * Telephone Encounter - Luis Manuel Smith - 02/22/2025 2:14 PM EDT Tc from Deya Gupta at [employer] reporting pt had another fall last night Contact Deya at [phone] documented in this encounter Plan of Treatment Upcoming Encounters Date Type Department Care Team (Late st Contact Info) Description 03/02/2025 11:00 AM EDT Medication Management [facility] MEDICINE [address] [place] [address] Apurva Corona, HennyD [address] [place], [place] [phone] documented as of this encounter Visit Diagnoses Not on filedocumented in this encounter Additional Health Concerns Assessment Noted Time PHQ-9 Depression Total Score: 6 10/19/19 11:41 AM EDT documented as of this encounter Care Teams Cementing Machine Operator Relationship Specialty Start Date End Date Shawna Gamble MD [address] [place], [place] [phone] PCP - General Family Medicine 05/13/22 [id number] 01/22/25 documented as of this encounter
--- OUTSIDE RECORDS SUMMARY | 2025-02-27 18:35 | XMS_ITS | Encounter Summary ---
Author Organization [employer] Address [address] [place] [address] 7t [place] [address] Care Team Providers Care Home Office Claim Specialist Name Role Phone Shawna Gamble MD Primary Care Provider [phone] Reason for Visit * Reason Comments Med Refill Encounter Details Date Type Department Care Team ([facility] st Contact Info) Description 10/14/2024 Refill [facility] [address] [place] [address] Uriel Jacobs DDS [address] [place] [address] Social History Tobacco Use Types Packs/Day Years [...] Description 03/02/2025 11:00 AM EDT Medication Management [facility] MEDICINE [address] [place] [address] Apurva Corona PharmD [address] [place] [address] documented as of this encounter Visit Diagnoses Not on filedocumented in this encounter Additional Health Concerns Assessment Noted Time PHQ-9 Depression Total Score: 6 10/15/19 24 11:05 AM EDT documented as of this encounter Care Teams Home Office Claim Specialist Relationship Specialty Start Date End Date Shawna Gamble MD [address] [place] [address] PCP - General Family Medicine 05/13/22 [employer] 01/22/25 documented as of this encounter
[2025-02-27 18:37] LABS: Appearance Urine Clear; Glucose Urine UA >=1000 mg/dL (Negative); PH 7.5 (5.0-9.0); Specific Gravity - Urine 1.020 (1.005-1.025); UMIC TRIGGER UACC YES
[2025-02-27 20:31] VITALS: BP 181/77; PULSE 87; TEMP 36.5; O2SAT 95
[2025-02-27 21:39] VITALS: BP 151/67; PULSE 72; RESP 16; TEMP 36.5; O2SAT 95
== END 2025-02-27 21:42 | disposition home or self-care (01) ==
PROVIDERS: Emergency Provider Emergency Medicine Emergency Medical Services; PCP General Practice
DX: S22.31XA Fracture of one rib, right side, initial encounter for closed fracture (principal); M43.12 Spondylolisthesis, cervical region; R51.9 Headache, unspecified; R10.A1 Flank pain, right side; R42 Dizziness and giddiness; M54.2 Cervicalgia; I49.8 Other specified cardiac arrhythmias; X58.XXXA Exposure to other specified factors, initial encounter; Y93.9 Activity, unspecified; Y92.9 Unspecified place or not applicable; Y99.8 Other external cause status; Z79.899 Other long term (current) drug therapy
CPT/HCPCS: 36415; 70450; 71260; 72125; 74177; 80048; 80076; 81001; 83690; 84484; 85025; 85652; 86140; 93005; 99285; J1200; J2765; Q9967

== ENCOUNTER → 2025-02-27 16:44 | Outpatient (BNV) | payer OTHER, SELFPAY | PROVIDERS: Emergency Provider Emergency Medicine Emergency Medical Services; PCP General Practice; Visit Provider Radiology Diagnostic Radiology | DX: K59.00 Constipation, unspecified (principal); N32.89 Other specified disorders of bladder; S22.31XA Fracture of one rib, right side, initial encounter for closed fracture; M47.812 Spondylosis without myelopathy or radiculopathy, cervical region; S09.90XA Unspecified injury of head, initial encounter; I67.82 Cerebral ischemia; G31.9 Degenerative disease of nervous system, unspecified; I65.23 Occlusion and stenosis of bilateral carotid arteries; Z90.49 Acquired absence of other specified parts of digestive tract | CPT/HCPCS: 70450; 71260; 72125; 74177 ==

== ENCOUNTER → 2025-02-27 18:08 | Outpatient (BNV) | payer OTHER, SELFPAY | PROVIDERS: Emergency Provider Emergency Medicine Emergency Medical Services; PCP General Practice; Visit Provider Internal Medicine Cardiovascular Disease | DX: Z04.3 Encounter for examination and observation following other accident (principal) | CPT/HCPCS: 93010 ==

== ENCOUNTER 2025-03-19 10:16 | Outpatient (REF) | payer OTHER, SELFPAY ==
--- OUTSIDE RECORDS SUMMARY | 2025-03-14 14:45 | XMS_ITS | Encounter Summary ---
Author Organization [email or web address] Address [address] [place] [address] 7 [place] [address] Care Team Providers Care Tree Expert Name Role Phone Shawna Gamble MD Primary Care Provider [phone] Reason for Referral * Consultation (Routine) - Authorized Specialty Diagnoses / Procedures Referred By Contac t Referred To Contact Audiology Diagnoses Mixed conductive and sensorineural hearing loss of both ears Shawna Gamble MD [address] [place] [phone] Phone: tel: fax: [address] [place], [place] Phone: tel: fax: Referral ID Status Reason Start Date Expiration Date Visits Requested Visits Authorized [id number] Authorized Specialty Services Required 03/15/2026 1 1 Reason for Visit * Reason Comments Follow-up Encounter Details Date Type Department Care Team (Latest Contact Info) Description 03/14/2025 3:45 PM EDT Office Visit [facility] [address] [place] [address] [phone] Shawna Gamble MD [address] [place] [address] [phone] Hypomagnesemia (Primary Dx); Type 2 diabetes mellitus with diabetic neuropathy, without long-term current use of insulin (HCC); Mixed conductive and sensorineural hearing loss of both ears; Muscle wasting and atrophy, not elsewhere classified, unspecified upper arm; History of fragility fracture; Chronic kidney disease, stage 2 (mild); Chronic constipation; Orthostatic hypotension; Essential hypertension; Unintentional weight loss; Peripheral arterial disease Social History Tobacco Use Types Packs/Day Years [...] AM EDT documented as of this encounter Last Filed Vital Signs Vital Sign Reading Time Taken Comments Blood Pressure 130/60 03/14/2025 4:12 PM EDT Pulse 70 03/14/2025 4:12 PM EDT Temperature 36.1 C (97 F) 03/14/2025 4:12 PM EDT Respiratory Rate 21 03/14/2025 4:12 PM EDT Oxygen Saturation 97% 03/14/2025 4:12 PM EDT Inhaled Oxygen Concentration - - Weight 60.1 kg (132 lb 9.6 oz) 03/14/2025 4:12 P M EDT Height 157.5 cm (5' 2 ) 03/14/2025 4:12 PM EDT Body Mass Index 24.25 03/14/2025 4:12 PM EDT documented in this encounter Progress Notes * Shawna Gamble MD - 03/14/2025 3:45 PM EDT SUBJECTIVE: Sonia Marcano is a 69 y.o. female who presents for chronic disease management. Denies recent illness, ER visit, or hospitalization. Accompanied by her son Trent. Acute Concerns: Noticing bilateral hearing loss--Audiology referral 03/15/25 2. Needs Ensure-renewal for underweight, her weight has increased from 97 pounds to 132lbs 3. 02/12/[address] Fecal retention throughout the colon. Significant bladder distention, nonspecific. 4. Recurrent falls, today Gluc 209 and will test Mg-? She also has neuropathy and peripheral arterial disease, so multiple factors contributing to weakness Chronic Conditions and Plans: ER visit for fatigue and syncope 01/01, then a fall 01/04. Has neck pain and R hip pain after the fall. 01/02/25 ER Vertebral alignment is within normal limits. Degenerative changes are moderate. Calcified disc osteophyte complexes are present at C4-C5 and C5-C6. No acute fractures or dislocations. 01/08/25 FINDINGS: There are small marginal sites along [...] osteoarthritis is likely secondary to CPPD arthropathy. Intense weakness and fatigue L tibial fracture has healed Did PT at home twice a week x 6 weeks feels wobbly when walking Having falls, sometimes hard to get out of bed History of hypomagnesia, and Mg is 1.0 (10/18/2024), today 1.7 [facility] ER 10/21/2023 after a fall and had CT which found small to moderate-sized lipohemarthrosis. Subtle focal irregularity along the lateral tibial plateau, raising concern for essentially nondisplaced fracture. RLE painful and with venous stasis changes and neuropathic pain Sees vascular at [facility] On Xarelto 2.5mg BID PSSS for neurostimulator and consider inc Gabapentin 07/2024 arterial duplex scan showed patency of the treated vessels VICENTA showed mild disease on the R and mod-severe disease on the left 02/2024 repair of recurrent stenosis in her anterior tibial artery with laser atherectomy and drug eluting bioabsorable stent 11/2023 occluded posterior and peroneal arteries, needs to activate foot now that it is out of immobilizer 07/2023 repair of instent stenosis within a stent located at adductor canal and repair of anterior tibial artery 03/02/24 saw vascular, stent to LLE helpful with rest pain, continue on Xarelto 01/2023 repair of L superficial femoral artery and anterior tibial artery Will order foot bike to allow for exercise Headaches/Migraine sided facial pain as main symptoms now, sees neuro Not helped by triptansnes Normal ESR today to help rule out PMR 06/2023 L ICA 50-75% stenosis seen on carotid US done by cards, continue to monitor every 6 months Hypomagnesia Taking Mg 400mg daily 08/2023 Neprology Pt with chronic hypomagenesemia, multifcatorial, in setting of chlorthalidone + PPI + chronic diarrhea Noted mag of 1.5 on 06/17/23 Prior mag was 0.9 on 03/15/23 Noted to have chronically low magnesium of 1.5 since 05/20/21 Never had hypokalemia Calcium normal 9.6 on 06/11/23 UA 01/24/22 was bland Scr of 0.82 and GFR of > 90 on 06/11/23 Urine malb/creatinine ratio mildly elevated 32.3 on 03/15/23 Advised to stop both chlorthalidone and omeprazole Continue mag ox 400 mg daily for now Non-healing wounds feet, much improved collegenase ointment for L calcaneus ulcers, seeing wound care every 1-2 weeks at [facility] Abd pain/early satiety Has gained weight back to 134 pounds Feels full quickly (10/28/[address], other exams normal) 11/2022 Dr Andre, ACTH stimulation test per GI, CORBIN stenosis suggested on doppler scan however since splanchnic angio was normal from 04/2022 and 06/13/23 Stomach, antrum, biopsy: Antral-type mucosa with mild chronic inactive inflammation; no Helicobacter organisms seen. B. Stomach, body, biopsy: Oxyntic mucosa with mild chronic inactive inflammation; no Helicobacter organisms seen. 03/09 GI, keep Madelinezess HTN/CAD Measuring BP daily at home 120-140s/60-80s, pulse 70-[address] Pierre. Continue on aspirin, atorvastatin, metoprolol, Lisinopril, and clopidogrel 06/08/24 f/u with cards, Dr Rodríguez 03/31/24 carotid artery dx 10/2023 Dr Rodríguez, repeat Echo/lower extremity duplex in 6 months 08/2023 nl ventricular function, EF 60-65%, no pulm HTN, mild mitral regurg 06/2023 L ICA 50-75% stenosis 12/2022- pt improving will defer repeat angio at this time but can be considered if any correlating sx develop HLD On Atorvastatin 80mg DM2 Metformin 500mg XR daily A1C 8.3, gluc 224 Start SGLT2- Jardiance 10mg 12/22/24 Dr Shar PEREZ, no DM2 involvement Weight Loss, unintentional Improving, wt up to 134lbs On Mirtazapine 45mg nightly Health Maintenance Colon- done with GI DEXA- unsure Imms- Zoster, RSV, COVID due Patient Active Problem List Diagnosis Date Noted Mixed conductive and sensorineural hearing loss of both ears 03/15/2025 Peripheral arterial disease 03/15/2025 Right hip pain 01/09/2025 Esophageal reflux disease 12/11/2024 History of fragility fracture 10/23/2024 Anemia due to stage 3 chronic kidney disease, unspecified whether stage 3a or 3b CKD (CMS/HCC) (HCC) 10/18/2024 Chronic kidney disease, stage 2 (mild) 02/16/2024 Left medial tibial plateau fracture 11/09/2023 Fractured dental scientology with loss of material 10/20/2023 Drug-induced xerostomia 10/20/2023 Depression, recurrent (CMS/HCC) 10/17/2023 Dental caries 04/29/2023 History of coronary artery bypass surgery 12/15/2022 Chest pain on breathing 12/04/2022 Deficiency of macronutrients 12/01/2022 Other fatigue 08/07/2022 Other lack of coordination 08/04/2022 Vitamin D deficiency 08/01/2022 Unintentional weight loss 08/01/2022 Stenosis of celiac artery 08/01/2022 Seasonal allergies 08/01/2022 Peripheral angiopathy due to type 2 diabetes mellitus ([facility]) 08/01/2022 Orthostatic hypotension 08/01/2022 Intermittent extrinsic asthma 08/01/2022 Insomnia due to medical condition 08/01/2022 Hyponatremia 08/01/2022 Dyslipidemia 08/01/2022 Chronic constipation 08/01/2022 Abdominal pain 08/01/2022 Muscle wasting and atrophy, not elsewhere classified, unspecified upper arm 07/31/2022 Excessive attrition of teeth, limited to enamel 06/18/2022 Dental plaque 06/18/2022 Missing teeth, acquired 06/18/2022 Urge incontinence of urine 06/08/2022 Gastritis 04/27/2018 Shoulder pain 04/27/2018 Essential hypertension 01/31/2018 Coronary atherosclerosis 03/10/2012 Carpal tunnel syndrome 03/10/2012 Chronic low back pain 03/10/2012 Type 2 diabetes mellitus with diabetic neuropathy, unspecified ([facility]) 03/10/2012 Hyperlipidemia 03/10/2012 S/P laparoscopic cholecystectomy 01/22/2012 Hypomagnesemia 11/30/2022 Surgical History[1] Social History Social History Narrative 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 Respiratory: Negative. Cardiovascular: Negative. Musculoskeletal: Positive for arthralgias and myalgias. Skin: Negative. Neurological: Positive for weakness. Recurrent falls Psychiatric/Behavioral: Positive for dysphoric mood. OBJECTIVE: Vitals: 03/14/25 1612 BP: 130/60 BP Location: Left arm Patient Position: Sitting BP Cuff Size: Large adult Pulse: 70 Resp: 21 Temp: 97 ??F (36.1 ??C) TempSrc: Oral SpO2: 97% Weight: 132 lb 9.6 oz (60.1 kg) Height: 5' 2 (1.575 m) Physical Exam Vitals reviewed. Constitutional: Appearance: Normal appearance. HENT: Head: Normocephalic and atraumatic. Cardiovascular: Rate and Rhythm: Normal rate and regular rhythm. Pulses: Normal pulses. Heart sounds: Normal heart sounds. Pulmonary: Effort: Pulmonary effort is normal. Breath sounds: Normal breath sounds. Skin: General: Skin is warm and dry. Neurological: General: No focal deficit present. Mental Status: She is alert and oriented to person, place, and time. Psychiatric: Mood and Affect: Mood normal. Behavior: Behavior normal. ASSESSMENT/PLAN Problem List Items Addressed This Visit Type 2 diabetes mellitus with diabetic neuropathy, unspecified (HCC) Relevant Orders POCT Glucose (Completed) Essential hypertension Relevant Medications Magnesium Oxide -Mg Supplement 400 MG capsule Hypomagnesemia - Primary Overview Since 2021 Stopped Chlorthalidone Relevant Medications Magnesium Oxide -Mg Supplement 400 MG capsule Other Relevant Orders Magnesium CBC auto differential Muscle wasting and atrophy, not elsewhere classified, unspecified upper arm Relevant Medications Lidocaine Pain Relief 4 % patch Unintentional weight loss Orthostatic hypotension Chronic constipation Relevant Medications Magnesium Oxide -Mg Supplement 400 MG capsule Chronic kidney disease, stage 2 (mild) (Chronic) Relevant Medications Magnesium Oxide -Mg Supplement 400 MG capsule History of fragility fracture Relevant Medications Lidocaine Pain Relief 4 % patch Mixed conductive and sensorineural hearing loss of both ears Relevant Medications acetic acid-hydrocortisone (Vosol-HC) otic solution Other Relevant Orders Referral to Audiology Peripheral arterial disease Follow Up: 4 months or sooner prn Allergies[2] Current Medications[3] Swedish Translation: Patient is bilingual and declines translation services [1] History reviewed. No pertinent surgical history. [2] Allergies Allergen Reactions Azithromycin Itching Cortisone Other reaction(s): itching all over Doxycycline Other reaction(s): itching all over Ketorolac Tromethamine Unknown Metformin Other reaction(s): GI intolerance Morphine Oxycodone Oxycodone-Acetaminophen Unknown Penicillins Other reaction(s): Rash, rash Other reaction(s): Not available Pioglitazone Other reaction(s): fluid retention Sulfa Antibiotics Other reaction(s): itching all over Sulfamethoxazole-Trimethoprim Other reaction(s): hives Tramadol Trimethoprim Other reaction(s): Rash, swollen lips Acetaminophen-Codeine Anxiety [3] Current Outpatient Medications: Lidocaine Pain Relief 4 % patch, APPLY 1 PATCH TOPICALLY DAILY NEEDED FOR PAIN, Disp: , Rfl: Magnesium Oxide -Mg Supplement 400 MG capsule, Take 1 capsule by mouth Once per day., Disp: , Rfl: acetaminophen (Tylenol 8 Hour) 650 MG ER tablet, Take 1 tablet (650 mg) by mouth every 8 (eight) hours if needed for mild pain for up to 10 days. Do not crush, chew, or split., Disp: 30 tablet, Rfl: 0 acetic acid-hydrocortisone (Vosol-HC) otic solution, Administer 3 drops into the right ear 2 times daily for 10 days., Disp: 10 mL, Rfl: 0 albuterol 108 (90 Base) MCG/ACT inhaler, Inhale 2 puffs every 6 (six) hours if needed for wheezing., Disp: 18 g, Rfl: 11 amitriptyline (Elavil) 50 MG tablet, TAKE 1 TABLET AT BEDTIME FOR 1 WEEK THEN 2 TABLETS AT BEDTIME ONCE A DAY 30 DAY(S), Disp: , Rfl: Aspirin Low Dose 81 MG EC tablet, TAKE 1 TABLET (81 MG) BY MOUTH IN THE MORNING, Disp: 90 tablet, Rfl: 3 atorvastatin (Lipitor) 80 MG tablet, TAKE 1 TABLET (80 MG) BY MOUTH IN THE MORNING, Disp: 90 tablet, Rfl: 3 Blood Glucose Monitoring Suppl (ONE TOUCH ULTRA 2) w/Device kit, 1 each 2 times daily., Disp: 1 kit, Rfl: 0 cholecalciferol (Vitamin D-3) 250 MCG (39497 UT) capsule, TAKE 1 CAPSULE BY MOUTH TWICE WEEKLY FOR 3 MONTHS, Disp: , Rfl: clopidogrel (Plavix) 75 MG tablet, Take 1 tablet by mouth 1 (one) time each day., Disp: , Rfl: docusate sodium (Colace) 100 MG capsule, , Disp: , Rfl: empagliflozin (Jardiance) 10 MG, Take 1 tablet (10 mg) by mouth Once per day., Disp: 90 tablet, Rfl: 1 ferrous gluconate (Fergon) 324 (37.5 Fe) MG tablet, Take 1 tablet by mouth twice daily., Disp: 180 tablet, Rfl: 0 ferrous gluconate (Fergon) 324 (38 Fe) MG tablet, TAKE 1 TABLET (324 MG TOTAL) BY MOUTH 1 (ONE) TIME EACH DAY WITH BREAKFAST, Disp: , Rfl: FreeStyle lancets, USE TO TEST 3 TIMES DAILY, Disp: 100 each, Rfl: 11 furosemide (Lasix) 20 MG tablet, TAKE 1 TABLET BY MOUTH EVERY DAY FOR 30 DAYS, Disp: , Rfl: gabapentin (Neurontin) 600 MG tablet, TOME BERNABE SIOBHANA LUCINA CARLTONES AL MADIHA 90, Disp: , Rfl: hydrOXYzine HCl (Atarax) 25 MG tablet, Take 1 tablet by mouth 2 times daily., Disp: , Rfl: insulin pen needle (BD Pen Needle Micro U/F) 32G x 6 mm misc, BD Megha 2nd Gen Pen Needle 32 gauge x5/32 USE FOR INSULIN INJECTIONS ONCE DAILY, Disp: , Rfl: lidocaine (Lidoderm) 5 % patch, Apply 1 patch topically Once per day. Remove & discard patch within 12 hours or as directed by MD., Disp: 30 patch, Rfl: 3 Linzess 145 MCG capsule, take 1 capsule by mouth every day in the morning, Disp: , Rfl: lisinopril (Prinivil) 20 MG tablet, Take 1 tablet (20 mg) by mouth Once per day., Disp: 90 tablet, Rfl: 3 loratadine (Claritin) 10 MG tablet, TAKE 1 TABLET BY MOUTH once daily as needed, Disp: 90 tablet, Rfl: 1 Magnesium 400 MG capsule, Take 1 capsule by mouth daily, Disp: 90 capsule, Rfl: 3 magnesium oxide (Mag-Ox) 400 MG tablet, TAKE 1 TABLET (400 MG) BY MOUTH IN THE MORNING, Disp: 90 tablet, Rfl: 1 memantine (Namenda) 5 MG tablet, , Disp: , Rfl: metFORMIN XR (Glucophage-XR) 500 MG 24 hr tablet, TAKE 2 TABLET BY ORAL ROUTE 2 TIMES EVERY DAY WITH THE EVENING MEAL, Disp: 360 tablet, Rfl: 3 metoprolol tartrate (Lopressor) 25 MG tablet, Take 25 mg by mouth. Take with food., Disp: , Rfl: mirtazapine (Remeron) 45 MG tablet, TAKE 1 TABLET BY MOUTH EVERY DAY AT BEDTIME FOR 30 DAYS, Disp: , Rfl: multivitamin with minerals (Cerovite) 18-400 mg-mcg tablet tablet, one pill daily, Disp: , Rfl: nitroglycerin (Nitrostat) 0.4 MG SL tablet, TAKE 1 TAB SUBLINGUALLY EVERY 5 MINS FOR UP TO 3 TABLETS MAX EVERY 30 DAYS NEEDED, DIRECTED, Disp: , Rfl: omeprazole (PriLOSEC) [address] capsule, Take 1 capsule by mouth Once per day., Disp: , Rfl: OneTouch Delica Lancets 33G misc, Use to test blood sugar 2 times daily, Disp: 100 each, Rfl: 11 Santyl 250 UNIT/GM ointment, APPLY TO FOOT ULCER IN THICK LAYER DAILY, DIRECTED, Disp: , Rfl: senna (Senokot) 8.6 MG tablet, Take 17.2 mg by mouth., Disp: , Rfl: sertraline (Zoloft) 50 MG tablet, TAKE 1 TABLET BY MOUTH EVERY DAY FOR 30 DAYS, Disp: , Rfl: traZODone (Desyrel) 100 MG tablet, Take 100 mg by mouth at bedtime., Disp: , Rfl: Xarelto 2.5 MG tablet, Take 1 tablet (2.5 mg) by mouth 2 times daily., Disp: 60 tablet, Rfl: 6 documented in this encounter Plan of Treatment Scheduled Orders Name Type Priority Associated Diagnoses Orde r Schedule Magnesium Lab Routine Hypomagnesemia Expected: 03/14/2025, Expires: 03/14/2026 Scheduled Referrals Name Type Priority Associated Diagnoses Orde r Schedule Referral to Audiology Outpatient Referral Routine Mixed conductive and sensorineural hearing loss of both ears Expected: 03/15/2025 (Approximate), Expires: 03/15/2026 documented as of this encounter Procedures Procedure Name Priority Date/Time Associated Diagnosis Comments CBC WITH AUTO DIFFERENTIAL Routine 03/19/2025 10:45 AM EST Hypomagnesemia POCT GLUCOSE Routine 03/14/2025 4:13 PM EDT Type 2 diabetes mellitus with diabetic neuropathy, without long-term current use of insulin (HCC) documented in this encounter Results * (ABNORMAL) CBC auto differential (03/19/2025 10:45 AM EST) White Blood Count 8.7 4.8 - 10.8 X10*3/uL [facility] Red Blood Count 4.19(L) 4.20 - 5.50 X10*6/uL [facility] Hemoglobin 11.8(L) 12.0 - 16.0 g/dl [facility] Hematocrit 36.3(L) 37.0 - 47.0 % [facility] Mean Corpuscular Volume 86.6 80.0 - 98.0 fL [facility] Mean Corpuscular Hemoglobin 28.2 27.0 - 33.0 pg [facility] Mean Corpuscular HGB Conc 32.5 31.0 - 35.0 g/dl [facility] Red Cell Distribution Width 15.7 11.0 - 16.0 % [facility] Platelet Count 279 160 - 400 X10*3/uL [facility] Mean Platelet Volume 12.0 9.4 - 12.3 fL [facility] Neutrophils Percent Auto 58.1 45 - 73 % [facility] Imm Gran Pct Auto 0.6(H) 0.0 - 0.4 % [facility] Lymphocytes Percent Auto 25.6 20 - 40 % [facility] Monocytes Percent Auto 11.4(H) 2 - 11 % [facility] Eosinophils Percent Auto 3.4 0 - 4 % [facility] Basophils Percent Auto 0.9 0 - 2 % [facility] NRBC Pct Auto 0.0 0.0 - 0.2 /100WBC [facility] Neutrophils Absolute Auto 5.1 2.0 - 8.3 x10*3/uL [facility] Imm Gran Abs Auto 0.05(H) 0.00 - 0.03 X10*3/uL [facility] Lymphocytes Absolute Auto 2.2 1.2 - 4.9 X10*3/uL [facility] Monocytes Absolute Auto 1.0 0.1 - 1.2 X10*3/uL [facility] Eosinophils Absolute Auto 0.3 0.0 - 0.4 X10*3/uL [facility] Basophils Absolute Auto 0.1 0.0 - 0.2 X10*3/uL [facility] NRBC Abs Auto 0.000 0.0 - 0.012 X10*3/uL [facility] Blood Venous blood specimen / Unknown 03/19/2025 10:45 AM EST 03/19/2025 10:45 AM EST Shawna Gamble MD LAB BLOOD ORDERABLES Final Res ult [facility] [address] [place] [address] [phone] * (ABNORMAL) POCT Glucose (03/14/2025 4:13 PM EDT) Glucose Blood, POC 209(A) 60 - 200 mg/dL QC Media Lot # [id number] Lot# Expiration Date Blood Capillary blood specimen / Unknown 03/14/2025 4:13 PM EDT Shawna Gamble MD POINT OF CARE TEST ENTER/EDIT ORDERABLES Final Result documented in this encounter Visit Diagnoses Diagnosis Hypomagnesemia- Primary Disorders of magnesium metabolism Type 2 diabetes mellitus with diabetic neuropathy, without long-term current use of insulin (HCC) Mixed conductive and sensorineural hearing loss of both ears Muscle wasting and atrophy, not elsewhere classified, unspecified upper arm History of fragility fracture Chronic kidney disease, stage 2 (mild) Chronic constipation Unspecified constipation Orthostatic hypotension Essential hypertension Unspecified essential hypertension Unintentional weight loss Loss of weight Peripheral arterial disease Unspecified peripheral vascular disease documented in this encounter Additional Health Concerns Assessment Noted Time PHQ-9 Depression Total Score: 6 10/19/19 25 11:41 AM EDT documented as of this encounter Care Teams Tree Expert Relationship Specialty Start Date End Date Shawna Gamble MD [address] [place] [phone] PCP - General Family Medicine 05/13/22 [employer] 01/22/25 documented as of this encounter
[2025-03-19 10:46] LABS: MANUAL DIFF FLAG NO
[2025-03-19 11:56] LABS: Hematocrit 36.3 % (37.0-47.0); Hemoglobin 11.8 g/dl (12.0-16.0); Imm Gran Abs Auto 0.05 X10*3/uL (0.00-0.03); Imm Gran Pct Auto 0.6 % (0.0-0.4); Lymphocytes Absolute Auto 2.2 X10*3/uL (1.2-4.9); Mean Corpuscular HGB Conc 32.5 g/dl (31.0-35.0); Mean Corpuscular Hemoglobin 28.2 pg (27.0-33.0); Mean Corpuscular Volume 86.6 fL (80.0-98.0); NRBC Abs Auto 0.000 X10*3/uL (0.0-0.012); NRBC Pct Auto 0.0 /100WBC (0.0-0.2); Platelet Count 279 X10*3/uL (160-400); Red Blood Count 4.19 X10*6/uL (4.20-5.50); White Blood Count 8.7 X10*3/uL (4.8-10.8)
--- OUTSIDE RECORDS SUMMARY | 2025-03-19 12:17 | XMS_ITS | Clinical Summary ---
Author Organization [facility] Address [address] [place] [address] Care Team Providers Care Supervisor Forming Department Name Role Phone Unavailable Primary Care Provider [...] - 2023-2 5 season) 2025 RSV Vaccine 50 years and old er and Patients (1 - 1-dose 75+ series) 2028 Hepatitis B Vaccines Aged Out No long er eligible based on patient's age to complete this topic
--- OUTSIDE RECORDS SUMMARY | 2025-03-19 12:17 | XMS_ITS | Encounter Summary ---
Author Organization [email or web address] Address [address] [facility] [address] [place] [address] Care Team Providers Care Accredited Pharmacy Technician Name Role Phone Shawna Gamble MD Primary Care Provider [phone] Encounter Details Date Type Department Care Team (Latest Contact Info) Description 03/14/2025 Travel Social History Tobacco Use Types Packs/Day Years [...] documented as of this encounter Care Teams Accredited Pharmacy Technician Relationship Specialty Start Date End Date Shawna Gamble MD [address] [place] [phone] PCP - General Family Medicine 05/13/22 [employer] 01/22/25 documented as of this encounter
--- OUTSIDE RECORDS SUMMARY | 2025-03-19 12:17 | XMS_ITS | Data Portability ---
Author Organization [facility] [employer] [facility], Main Office Address [address] [place] [address] Care Team Providers Care Pipelines Laborer Name Role Phone DELMIS HEARD 2ND FLOOR [...] goals are met, likely 7-10 days Total xjf-lbha-ki-face time spent reviewing records today was 32 minutes/2 units. [email or web address] Not available 08/01/2022 19:41:07 Reason for Referral None Reported. Problems Name Problem SNOMED Code Status Onset Date Resolution Date Notes Provider Name and Address Organization Details Recorded Time Coronary arterioscle rosis 36559186 Active 2022 YOCASTA CHAMBERS PA-C [address], [place], [address], [facility] 3 19:22:01 Essential hypertensio n 44986133 Active 2022 YOCASTA CHAMBERS PA-C [address], [address], [place], [address], [facility] 3 19:22:06 Dyslipidemi a 295322049 Active 2022 YOCASTA CHAMBERS, PA-C [address], [address], [place], [address], [facility] 3 19:22:13 Type 2 diabetes mellitus with peripheral angiopathy 104880253 Active 2022 ISAIAS DAVIS-C [address], [address], [place], [address], [facility] 3 19:22:25 Peripheral neuropathy due to type 2 diabetes mellitus 4080143295689 Active 2022 ISAIAS DAVIS-C [address], [address], [place], [address], [facility] 3 19:22:33 Unintention al weight loss 633824382 Active 2022 ISAIAS DAVIS-C [address], [address], [place], [address], [facility] 3 19:22:40 Orthostatic hypotension 13097421 Active 2022 ISAIAS DAVIS-C [address], [address], [place], [address], [facility] 3 19:23:00 Hyponatremi a 36924662 Active 2022 ISAIAS DAVIS-C [address], [address], [place], [address], [facility] 3 19:23:09 Anemia 098486937 Active 2022 ISAIAS DAVIS-C [address], [address], [place], [address], [facility] 3 19:23:18 Chronic constipatio n 263348723 Active 2022 ISAIAS DAVIS-C [address], [address], [place], [address], [facility] 3 19:23:25 Seasonal allergy 508165765 Active 2022 ISAIAS DAVIS-C [address], [address], [place], [address], [facility] 3 19:23:32 Stenosis of celiac artery 7667400670803 9101 Active 2022 YOCASTA CHAMBERS PA-C [address], [address], [place], [address], [facility] 3 19:23:44 Abdominal pain 70081530 Active 2022 YOCASTA CHAMBERS PA-C [address], [address], [place], [address], [facility] 3 19:24:04 Vitamin D deficiency 61932653 Active 2022 YOCASTA CHAMBERS PA-C [address], [address], [place], [address], [facility] 3 19:24:12 Insomnia co-occurren t and due to medical condition 2816615741776 5 Active 2022 YOCASTA CHAMBERS PA-C [address], [address], [place], [address], [facility] 3 19:24:25 Hypomagnese arlen 955929804 Active 2022 YOCASTA CHAMBERS PA-C [address], [address], [place], [address], [facility] 3 19:30:39 Intermitten t allergic asthma 0252180233762 9104 Active 2022 YOCASTA CHAMBERS PA-C [address], [address], [place], [address], [facility] 3 19:31:17 Coronary artery bypass grafts x 4 Active 2022 YOCASTA CHAMBERS PA-C [address], [address], [place], [address], [facility] 3 19:31:29 Type 2 diabetes mellitus 63120268 Active 2022 Nicci Womack MD [address], [address], [place], [address], [facility] 3 16:26:34 Asthenia 85495618 Active 2022 Nicci Womack MD [address], [address], [place], [address], [facility] 3 16:37:01 Problem Notes None recorded. Medical Equipment None Reported. Allergies Allergen ID Allergen Name Allergen Category Reaction Reaction Severity Criticality Documentation Date Start Date Code Code System Note Provider Name and Address Organization Details Recorded Time 16325 Bactrim medicatio n hives Not available Not available 08/01/2022 47162 9 RxNorm YOCASTA CHAMBERSJEREMI [address], [place], [address], [facility] 3 17:55:34 68492 oxycodone medicatio n dyspnea itching Not available Not available Not available 08/01/2022 7804 RxNorm YOCASTA CHAMBERSJEREMI [address] [facility], [address], [place], [address], [facility] 3 17:56:03 39120 codeine medicatio n Not available Not available Not available 08/01/2022 2670 RxNorm amxie ty YOCASTA CHAMBERSJEREMI [address] [facility], [address], [place], [address], [facility] 3 17:56:14 17678 cortisone medicatio n itching Not available Not available 08/01/2022 2878 RxNorm YOCASTA CHAMBERSJEREMI [address] [facility], [address], [place], [address], [facility] 3 17:56:28 15226 doxycycli ne Not available itching Not available Not available 08/01/2022 3640 RxNorm YOCASTA JEREMI CHAMBERS [address], [place], [address], [facility] 3 17:56:41 12726 morphine medicatio n itching Not available Not available 08/01/2022 7052 RxNorm YOCASTA CHAMBERSISAIAS-C [address], [address], [place], [address], [facility] 3 17:56:51 30173 Product containin g penicilli n (product) medicatio n rash Not available Not available 08/01/2022 09826 8001 SNOMED YOCASTA CHAMBERS PA-C [address] [facility], [address], [place], [address], [facility] 3 17:57:04 91979 tramadol medicatio n Not available Not available Not available 08/01/2022 86416 RxNorm anxie ty YOACSTA CHAMBERS PA-C [address] [facility], [address], [place], [address], [facility] 3 17:57:18 Vitals Date Recorded Body height Body mass index (BMI) Body weight Heart rate Respiratory rate Body temperature Oxygen saturation Oxygen saturation in Arterial blood by Pulse oximetry Systolic And Diastolic Provider Name and Address Organization Details Last Updated DateTime 3 154.94 cm 25.5 kg/m2 11063.9 7 g 73 /min 17 /min 98.2 [degF] 100 % 100 % 146/59 mm[Hg] YOCASTA CHAMBERS PA-C [address] [facility], [address], [place], [address], [facility] 3 17:46:47 Date Recorded Body height Heart rate Respiratory rate Body temperature Oxygen saturation Oxygen saturation in Arterial blood by Pulse oximetry Systolic And Diastolic Provider Name and Address Organization Details Last Updated DateTime 3 154.94 cm 82 /min 16 /min 98.1 [degF] 97 % 97 % 127/78 mm[Hg] RAYMUNDO KIRK NP [address] [facility], [address], [place], [address], [facility] 3 11:57:47 Date Recorded Body height Heart rate Respiratory rate Body temperature Oxygen saturation Oxygen saturation in Arterial blood by Pulse oximetry Systolic And Diastolic Provider Name and Address Organization Details Last Updated DateTime 3 154.94 cm 80 /min 16 /min 98.4 [degF] 96 % 96 % 133/70 mm[Hg] RAYMUNDO KIRK NP [address] [facility], [address], [place], [address], [facility] 3 14:33:50 Date Recorded Body height Body mass index (BMI) Body weight Heart rate Respiratory rate Body temperature Oxygen saturation Oxygen saturation in Arterial blood by Pulse oximetry Systolic And Diastolic Provider Name and Address Organization Details Last Updated DateTime 3 154.94 cm 23.1 kg/m2 85592.2 7 g 84 /min 18 /min 97.9 [degF] 97 % 97 % 116/62 mm[Hg] Nicci Womack MD [address] [facility], [address], [place], [address], [facility] 3 16:02:43 Date Recorded Body height Heart rate Respiratory rate Body temperature Oxygen saturation Oxygen saturation in Arterial blood by Pulse oximetry Body mass index (BMI) Body weight Systolic And Diastolic Provider Name and Address Organization Details Last Updated DateTime 3 154.94 cm 88 /min 16 /min 97.3 [degF] 98 % 98 % 22.7 kg/m2 70800.5 2 g 131/78 mm[Hg] RAYMUNDO KIRK NP [address] [facility], [address], [place], [address], [facility] 3 12:42:06 Social History Question Answer Notes LastModified by Organizat ion Details LastModified Time Tobacco Smoking Status Never Smoker YOCASTA CHAMBERS PA-C [address] [facility], [address], [place], [address], [facility] 08/01/2022 19:32:55 Do You Have An Advance Directive? Yes [email or web address] Information not available 08/03/2022 What Is Your Code Status? Full Code [email or web address] Information not available 08/01/2022 Where Do You Live? [facility] Bedroom On 2nd Floor, Railing Only On Left Information not available 08/07/2022 Legal Guardian? No [email or web address] Information not available 08/01/2022 Do You Have A Medical Power Of Front End Application Developer? Yes Not Invoked Information not available 08/07/2022 What Was The Date Of Your Most Recent Tobacco Screening? 08/01/2022 [email or web address] Information not available 08/01/2022 Do You Have An Out Of Hospital DNR? No [email or web address] Information not available 08/01/2022 Has Tobacco Cessation Counseling Been Provided? No N/A As Pt Is A Non-smoker Information not available 08/07/2022 Sex: Unknown Functional Status Question Answer Note LastModified by Organizat ion Details LastModified Time Do you use any illicit or recreational drugs? No [email or web address] Information not available 08/01/2022 Do you or have you ever used any other forms of tobacco or nicotine? No [email or web address] Information not available 08/01/2022 What is your level of alcohol consumption? None [email or web address] Information not available 08/01/2022 Mental Status None recorded. Family History Relationship Description Onset Age of this Age Resolved Age Notes LastModified by Organization Details LastModified Time Father Coronary arterioscler osis 75 [email or web address] Not available 2022 19:18:27 Mother Coronary arterioscler osis 72 [email or web address] Not available 2022 19:18:27 Medical History No medical history recorded. Gynecological HistoryNo gynecological history recorded. Obstetrics History GPAL:G 0 P 0 0 0 0 Immunizations Vaccine Type Date Status Note Provider Nam e and Address Organization Details Recorded Time SARS-COV-2 (COVID-19) vaccine, UNSPECIFIED 1 completed Selma Hernandez [facility] 07/31/2022 16:13:00 SARS-COV-2 (COVID-19) vaccine, UNSPECIFIED 1 [facility] 16:13:09 Influenza, adjuvanted, quadrivalent, PF 2 [facility] 13:05:32 Hep B, unspecified formulation 8 completed Selma Hernandez [facility] 07/21/2023 12:52:12 Tdap 8 sai Hernandez [facility] 07/21/2023 12:52:31 Td(adult) unspecified formulation 5 completed Selma Hernandez [facility] 07/21/2023 12:52:50 Td(adult) unspecified formulation 0 completed Selma Hernandez [facility] 07/21/2023 12:52:59 Pneumococcal conjugate PCV 13 9 completed Selma dutta, [facility] 07/21/2023 12:53:54 pneumococcal polysaccharide PPV23 2 completed Selma Hernandez [facility] 07/21/2023 12:54:22 pneumococcal polysaccharide PPV23 1 completed Selma Hernandez [facility] 07/21/2023 12:54:30 influenza, unspecified formulation 3 completed Selma Hernandez [facility] 07/21/2023 12:54:54 zoster, unspecified formulation 6 completed Selma Hernandez [facility] 07/21/2023 12:55:18 zoster, unspecified formulation 0 completed Selma Hernandez [facility] 07/21/2023 12:55:31 Past Encounters Encounter ID Performer Location Encounter Start Date Encounter Closed Date Diagnosis/Indication Diagnosis SNOMED-CT Code Diagnosis ICD10 Code Diagnosis IMO Codes Diagnosis Note [id number] JEREMI DAVIS [address] [place] [address] 08/01/2022 17:43:19 08/04/2022 08:34:27 Coronary arteriosclerosis 86884443 I25.10 now s/p 4-vessel CABGASA, BB, statin, PlavixMoni tor surgical incision sites - presently no evidence of infectionP t HAS CT surg f/u with Dr. Andre Pierre 08/10/22 at [facility] (listed as being at 0130 so either it's supposed to be 1130 or 1330 - need to clarify appointmen t time) [phone] 50Pt NEEDS cards f/u with Dr. Estuardo Rodríguez in 2-4 weeks [phone] 84Pt needs f/u cardiac rehab at [facility] after d/c - [id number] tive spirometer at bedside Abdominal pain 47922643 R10.9 postprandi alHas meds in placeattri buted to celiac artery stenosis but does NOT have mesenteric artery stenosis Essential hypertension 39853430 I10 Monitor BPs and adjust meds prn Dyslipidemia 851632051 E 78.5 statin Peripheral neuropathy due to type 2 diabetes mellitus 9900219951 107 E11.42 monitor sugars and adjust meds prnOff MADY for renal protection - was d/c'd during antecedent hospitaliz ationTight glycemic control necessary to promote wound healingon duloxetine with prn wayne Intermitte nt allergic asthma 2518339636 7913224 J45.20 prn Albuterol- consider adding spacer to maximize med delivery Insomnia c o-occurrent and due to medical condition 2223092758 9105 G47.01 Trazodonef /u prn Hypomagnesemia 615128540 E83.42 supplement d/c'd PTAupdate level with next lab draw Chronic constipation 236 676968 K59.09 scheduled and prn bowel meds Anemia 134026158 D64.9 acute-on-c hronic post-opdoe s not appear she required a transfusio nmonitor CBC Seasonal allergy 0479011 04 J30.2 Claritin (weakest in that class - consider Maricel if needs something stronger) Stenosis o f celiac artery 6352877487 0854531 I77.4 seen by vascular surg-f/u prn Unintentio nal weight loss 209449505 R63.4 RD consultMon itor weights Vitamin D deficiency 347 83754 E55.9 repletingo utpatient f/u with PCP Hyponatremia 28893812 E8 7.1 had w/u prior to admitfollo w divalents Orthostati c hypotension 35799784 I95.1 BB decreasedf /u prn At moderat e risk for fall 5347647880 66184898 Z91.89 PT/OT [id number] JEREMIAH MCINTOSH [address] [place] [address] 08/03/2022 11:47:26 08/05/2022 17:19:50 Coronary arteriosclerosis 93412789 I25.10 now s/p 4-vessel CABGmetopr olol er 12.5 mg dailyasa 81 mg dailyatorv astatin 80 mg dailyplavi x 75 mg dailytylen ol 975 mg [id number] r surgical incision sites - presently no evidence of infectionP t HAS CT surg f/u with Dr. Andre Pierre 08/10/22 at [facility] (listed as being at 0130 so either it's supposed to be 1130 or 1330 - need to clarify appointmen t time) [phone] 50Pt NEEDS cards f/u with Dr. Estuardo Rodríguez in 2-4 weeks [phone] 84Pt needs f/u cardiac rehab at [facility] after d/c - [phone] [id number] tive spirometer at bedside Essential hypertension 31015861 I10 Monitor BPs and adjust meds prn Dyslipidemia 727865158 E 78.5 atorvastat in 80 mg daily Peripheral neuropathy due to type 2 diabetes mellitus 3316855420 107 E11.42 monitor sugars and adjust meds prnOff MADY for renal protection - was d/c'd during antecedent hospitaliz ationTight glycemic control necessary to promote wound healingdul oxatine 20 mg dailygabap entin 600 mg q6hr prn Intermitte nt allergic asthma 3178612208 4553207 J45.20 prn Albuterol- consider adding spacer to maximize med delivery Insomnia c o-occurrent and due to medical condition 0290652114 9105 G47.01 Trazodone 100 mg hsf/u prn Hypomagnesemia 478467778 E83.42 supplement d/c'd PTAupdate level with next lab draw Chronic constipation 236 678103 K59.09 senna 17.2 hscolace dailyprn bowel meds Anemia 703930719 D64.9 acute-on-c hronic post-opdoe s not appear she required a transfusio nmonitor CBC Seasonal allergy 9648467 04 J30.2 Claritin 10- mg prn Stenosis o f celiac artery 5802482566 8586152 I77.4 seen by vascular surg-f/u prn Unintentio nal weight loss 775786539 R63.4 RD consultMon itor weights Vitamin D deficiency 347 72824 E55.9 D3 1000 twice weeklyoutp atient f/u with PCP Hyponatremia 99057550 E8 7.1 had w/u prior to admitfollo w divalents Orthostati c hypotension 54245275 I95.1 BB decreasedf /u prn At moderat e risk for fall 5258034839 96701686 Z91.89 PT/OT Type 2 lou betes mellitus with peripheral angiopathy 649804112 E11.51 metformin 1000 mg bidlispro sliding scale bidpoc glucose bid [id number] RAYMUNDO KIRK NP [address] [address] 08/05/2022 14:11:45 08/10/2022 14:23:48 Coronary arteriosclerosis 25698957 I25.10 now s/p 4-vessel CABGmetopr olol er 12.5 mg dailyasa 81 mg dailyatorv astatin 80 mg dailyplavi x 75 mg dailytylen ol 975 mg [id number] r surgical incision sites - presently no evidence of infectionP t HAS CT surg f/u with Dr. Andre Pierre 08/10/22 at [facility] (listed as being at 0130 so either it's supposed to be 1130 or 1330 - need to clarify appointmen t time) [phone] 50Pt NEEDS cards f/u with Dr. Estuardo Rodríguez in 2-4 weeks [phone] 84Pt needs f/u cardiac rehab at [facility] after d/c - [id number] tive spirometer at bedside Peripheral neuropathy due to type 2 diabetes mellitus 5952458506 107 E11.42 monitor sugars and adjust meds prnOff MADY for renal protection - was d/c'd during antecedent hospitaliz ationTight glycemic control necessary to promote wound healingdul oxatine 20 mg dailygabap entin 600 mg q6hr prn [id number] MD DELMIS Castrejon ORQUIDEA [address] [place] [address] 08/07/2022 15:12:17 08/10/2022 14:43:19 Coronary arteriosclerosis 28266680 I25.10 S/P CABG x4, recovering well.Incis ions clean and dry and almost back to baseline function.C ontinue metoprolol ER 12.5 mg qd, ASA 81 mg qd, atorvastat in 80 mg qd, and plavix 75 mg qd (for 1 yr).Contin ue APAP 975 mg q 6 hrs scheduled for incisional pain.Salma nue I beau.F/U with Dr. Andre Pierre, CT surgery, 08/10/ at 1:30 PM, [phone] 50Pt needs cards f/u with Dr. Estuardo Rodríguez in 2-4 weeks [phone] 84Pt needs f/u cardiac rehab at [facility] after d/c - [phone] Essential hypertension 51778348 I10 Remains in good control on only metoprolol 12.5 mg.Isosorb kiet, lisinopril , and HCTZ were d/c'd inpt due to low BPs.Monito r BPs and adjust meds prn. Dyslipidemia 277404935 E 78.49 Continue atorvastat in 80 mg qd.Monitor labs as outpt. Intermitte nt allergic asthma 9621099378 2162271 J45.20 No current sxs.Contin ue albuterol 2 puffs q 6 hrs prn.Monito r resp. status. Insomnia c o-occurrent and due to medical condition 2099944189 9105 G47.01 Continue trazodone 100 mg qhsMonitor sleep patterns. Chronic constipation 236 492299 K59.09 Continue bowel meds as ordered.Mo nitor bowel function. Anemia 627965208 D64.89 Acute on chronic, from surgical blood loss.Remai toya stableMoni tor labs.Trans fuse for hgb <7 Seasonal allergy 7634357 04 J30.2 Continue loratadine 10 mg qd prnMonitor sxs. Stenosis o f celiac artery 9636147322 4961996 I77.4 F/U with vascular surg as planned Unintentio nal weight loss 245963515 R63.4 Reportedly lost 100# without trying.But remaining stable at this timeDietic nain consultMon itor weights Vitamin D deficiency 347 58252 E56.8 Continue D3 1000 IU twice weeklyMoni tor levels as outpt. Hyponatremia 04933118 E8 7.1 Resolved inpt.Monit or labs Type 2 lou betes mellitus 58495715 E11.21 Home sugars much improved since wt. [...] and pre-supper . Use SSI prn. Asthenia 98046008 R53.1 Was deconditio giovanni, but much improved.C ontinue PT/OT for strengthen ing, balance, gait training, safety and function.C ontinue fall precaution s.Monitor for safety.Helga n for d/c 08/11 Abdominal pain 49916864 R10.816 R11.0 Having trouble eating due to nausea and abd. pain.Will schedule carafate QID (AC and qhs) and Zofran 4 mg TID.Contin ue omeprazole 40 mg qd.Monitor sxs.Though t to possibly be mesenteric ischemia. [id number] JEREMIAH MCINTOSH [address] [address] 08/10/2022 12:41:32 08/12/2022 14:50:55 Coronary arteriosclerosis 69104392 I25.10 now s/p 4-vessel CABGmetopr olol er 12.5 mg dailyasa 81 mg dailyatorv astatin 80 mg dailyplavi x 75 mg dailytylen ol 975 mg [id number] r surgical incision sites - presently no evidence of infectionP t HAS CT surg f/u with Dr. Andre Pierre 08/10/22 at [facility] (listed as being at 0130 so either it's supposed to be 1130 or 1330 - need to clarify appointmen t time) [phone] 50Pt NEEDS cards f/u with Dr. Estuardo Rodríguez in 2-4 weeks [phone] 84Pt needs f/u cardiac rehab at [facility] after d/c - [id number] tive spirometer at bedside Essential hypertension 26717679 I10 Monitor BPs and adjust meds prn Dyslipidemia 076056114 E 78.5 atorvastat in 80 mg daily Peripheral neuropathy due to type 2 diabetes mellitus 5888921271 107 E11.42 monitor sugars and adjust meds prnOff MADY for renal protection - was d/c'd during antecedent hospitaliz ationTight glycemic control necessary to promote wound healingdul oxatine 20 mg dailygabap entin 600 mg q6hr prn Intermitte nt allergic asthma 6069025697 5487870 J45.20 prn Albuterol- consider adding spacer to maximize med delivery Insomnia c o-occurrent and due to medical condition 1334527662 9105 G47.01 Trazodone 100 mg hsf/u prn Hypomagnesemia 829877510 E83.42 supplement d/c'd PTAupdate level with next lab draw Chronic constipation 236 820906 K59.09 senna 17.2 hscolace dailyprn bowel meds Anemia 800602020 D64.9 acute-on-c hronic post-opdoe s not appear she required a transfusio nmonitor CBC Seasonal allergy 6718440 04 J30.2 Claritin 10- mg prn Stenosis o f celiac artery 2829160578 6739958 I77.4 seen by vascular surg-f/u prn Unintentio nal weight loss 775038687 R63.4 RD consultMon itor weights Vitamin D deficiency 347 38114 E55.9 D3 1000 twice weeklyoutp atient f/u with PCP Hyponatremia 45967600 E8 7.1 had w/u prior to admitfollo w divalents Orthostati c hypotension 70384615 I95.1 BB decreasedf /u prn At moderat e risk for fall 6747376071 54998129 Z91.89 PT/OT Type 2 lou betes mellitus with peripheral angiopathy 503113504 E11.51 metformin 1000 mg bidlispro sliding scale bidpoc glucose bid Health Concerns Section Related Observation LastModified by Organization Detai ls LastModified Time None Recorded Concern Status LastModified by Organization Details LastModified Time None Recorded Advance Directives Directive Y: Payers Insurance Date Sequence Insurance Name Policy Number Policy Swartz Covered Member ID Swartz Member ID Guarantor Name 08/07/2022 1 [facility] - DOS PRIOR TO 2022 - DUAL ELIGIBLE (MEDICARE REPLACEMENT/ADV ANTAGE - HMO) Sonia Marcano [id number] Sonia Marcano Notes Date Note Type Note Provider Name and Address Organization Details Recorded Time 3 text/html Pt seen today for initial review.Seen with [place]-speaking staff 66-y/o F admitted from [facility] where she was hospitalized 07/20-07/31/22 for [...] subacute rehab pt PPI use: 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 No N/V/D. YOCASTA CHAMBERS PA-C [address] [place] [address], [address], [place], [address], [facility] 08/01/2022 19:49:54 3 text/html ROS as noted in the HPI seen today for acute rounding visit-66-y/o F admitted from [facility] where she was hospitalized 07/20-07/31/22 for [...] dry healing well, yonis intact RAYMUNDO KIRK, OUTSOLE HAND[employer]ER [address] [facility], [address], [place], [address], [facility] 08/03/2022 15:37:40 3 text/html ROS as noted in the HPI seen today for acute rounding visit, CAOx3 sitting up in bed, lungs clear, chest incision healing well, medial knee incisions healing well no s/s infection yonis intact RAYMUNDO KIRK, OUTSOLE HANDLER [address] [facility], [address], [place], [address], [facility] 08/05/2022 14:36:03 3 text/html This is a [...] seasonal allergies/allergic asthma. Nicci Womack MD [address] [facility], [address], [place], [id number], [facility] 08/07/2022 18:29:32 3 text/html ROS as noted in the HPI seen today for discharge summary- 66 yo [...] to be removed RAYMUNDO KIRK NP [address] [facility], [address], [place], [address], [facility] 08/10/2022 12:46:34 OBGyn Episode No OBEpisode recorded.
--- OUTSIDE RECORDS SUMMARY | 2025-03-19 12:17 | XMS_ITS | Encounter Summary ---
Author Organization [employer] Address [address] [place] [address] [address] [place] [address] Care Team Providers Care Ap Processor Name Role Phone Shawna Gamble MD Primary Care Provider [phone] Reason for Visit * Reason Comments Med Change Request Encounter Details Date Type Department Care Team ([facility] st Contact Info) Description 03/14/2025 Refill [facility] MEDICINE [address] [place] [address] Shawna Gamble MD [address] [place] [address] Social History Tobacco Use Types Packs/Day Years [...] encounter Miscellaneous Notes * Telephone Encounter - Shawna Gamble MD - 03/19/2025 9:54 AM EST Sent acetic acid alone documented in this encounter Plan of Treatment Not on file documented as of this encounter Visit Diagnoses Not on filedocumented in this encounter Additional Health Concerns Assessment Noted Time PHQ-9 Depression Total Score: 6 10/19/19 25 11:41 AM EDT documented as of this encounter Care Teams Ap Processor Relationship Specialty Start Date End Date Shawna Gamble MD [address] [place] [address] PCP - General Family Medicine 05/13/22 [employer] 01/22/25 documented as of this encounter
--- OUTSIDE RECORDS SUMMARY | 2025-03-19 12:17 | XMS_ITS | Encounter Summary ---
Author Organization [employer] Address [address] [facility] 7t [place] [address] Care Team Providers Care Corrosion Engineer Name Role Phone Shawna Gamble MD Primary Care Provider Encounter Details Date Type Department Care Team ([facility] st Contact Info) Description 11/07/2024 Orders Only [facility] MEDICINE [address] [place], [place] [id number] Shawna Gamble MD [address] [place] [address] Hypomagnesemia (Primary Dx) Social History Tobacco Use [...] EDT) Magnesium 1.7 1.6 - 2.6 mg/dL [facility] Blood Venous blood specimen / Unknown 12/28/2024 3:06 PM EDT 12/28/2024 3:06 PM EDT us Shawna Gamble MD LAB BLOOD ORDERABLES Final Res ult [facility] [address] [place] [phone] documented in this encounter Visit Diagnoses Diagnosis Hypomagnesemia- Primary Disorders of magnesium metabolism documented in this encounter Additional Health Concerns Assessment Noted Time PHQ-9 Depression Total Score: 6 10/19/19 25 11:41 AM EDT documented as of this encounter Care Teams Corrosion Engineer Relationship Specialty Start Date End Date Shawna Gamble MD [address] [place] [address] PCP - General Family Medicine 05/13/22 [employer] 01/22/25 documented as of this encounter
--- OUTSIDE RECORDS SUMMARY | 2025-03-19 12:17 | XMS_ITS | Encounter Summary ---
Author Organization [employer] Address [address] [place] [address] 7t [place] [address] Care Team Providers Care Building Economist Name Role Phone Shawna Gamble MD Primary Care Provider [phone] Reason for Visit * Reason Onset Date Comments requesting script 05/13/2022 Encounter Details Date Type Department Care Team ([facility] st Contact Info) Description 05/13/2022 Telephone [facility] MEDICINE [address] [place] [address] Makenna Trinidad MD requesting script Social History [...] PM EST TC place to pt at [phone] via [employer] Of Financial. Pt states she's in need of body [...] send to medline Please contact pt at [phone] documented in this encounter Plan of Treatment Not on file documented as of this encounter Visit Diagnoses Not on filedocumented in this encounter Care Teams Building Economist Relationship Specialty Start Date End Date Shawna Gamble MD [address] [place] [address] PCP - General Family Medicine 05/13/22 [employer] 01/22/25 documented as of this encounter
--- OUTSIDE RECORDS SUMMARY | 2025-03-19 12:17 | XMS_ITS | Patient Health Record ---
Author Organization [facility] Address [address] [place] [address] Care Team Providers Care Senior Power Scheduler Name Role Phone Anish Santiago MD, Arnulfo [...] W/U Status Risk Notes Problem Esophageal reflux (598995790) Esophageal reflux (530.81) Active confirmed Problem Epigastric pain (24704178) Abdominal pain, epigastric (789.06) Active confirmed Plan Of Treatment No Information Insurance Providers Payer Name Payer Address Payer Phone Subscriber Number Group Number Insured Name Patient Relationship to Insured Coverage Start Date Coverage End Date [facility] [address] [address] [place], [place] [id number] ABHIJEET TILLEY Self - patient is the insured Medical (General) History Medical History History ICD Code colonoscopy 12-09-2005 Diabetes mellitus type 2 Neuropathy Elevated cholesterol Hypertension Surgical History Surgery Date(Month/Year) Bilateral carpal tunnel release Cholecystectomy
--- OUTSIDE RECORDS SUMMARY | 2025-03-19 12:17 | XMS_ITS | Encounter Summary ---
Author Organization [employer] Address [address] [facility] 7t [place] [address] Care Team Providers Care Coal Handler Name Role Phone Shawan Gamble MD Primary Care Provider [phone] Encounter Details Date Type Department Care Team ([facility] Contact Info) Description 03/15/2025 Telephone [facility] MEDICINE [address] [place] [address] Shawna Gamble MD [address] [place] [address] Social History Tobacco Use Types Packs/Day Years [...] encounter Miscellaneous Notes * Telephone Encounter - Donya Tariq - 03/15/2025 9:11 AM EDT Contacted patient on 03/06/2025 to offer Medication Therapy Management (MTM). Patient declined services. documented in this encounter Plan of Treatment Not on file documented as of this encounter Visit Diagnoses Not on filedocumented in this encounter Additional Health Concerns Assessment Noted Time PHQ-9 Depression Total Score: 6 10/19/19 11:41 AM EDT documented as of this encounter Care Teams Coal Handler Relationship Specialty Start Date End Date Shawna Gamble MD [address] [place] [address] PCP - General Family Medicine 05/13/22 [employer] 01/22/25 documented as of this encounter
--- OUTSIDE RECORDS SUMMARY | 2025-03-19 12:17 | XMS_ITS | Encounter Summary ---
Author Organization [email or web address] Address [address] [place] [address] [address]t [place] [address] Care Team Providers Care Service Department Manager Name Role Phone Makenna Trinidad MD Primary Care Provider Shawna Hand MD Primary Care Provider [phone] Encounter Details Date Type Department Care Team (Late st Contact Info) Description 04/20/2022 Abstract [facility] ADULT DENTAL [address] [place] [address] Dental, Provider, DDS Social History Tobacco Use [...] on filedocumented in this encounter Care Teams Service Department Manager Relationship Specialty Start Date End Date Makenna Trinidad MD PCP - General Family Medicine 03/24/19 05/12/22 Shawna Gambel MD [address] [place] [address] PCP - General Family Medicine 05/13/22 [employer] 01/22/25 documented as of this encounter
--- OUTSIDE RECORDS SUMMARY | 2025-03-19 12:17 | XMS_ITS | Encounter Summary ---
Author Organization [employer] Address [address] [facility] 7t [place] [address] Care Team Providers Care Public Relations Player Name Role Phone Shawna Gamble MD Primary Care Provider [phone] Encounter Details Date Type Department Care Team ([facility] st Contact Info) Description 03/09/2025 Orders Only [facility] MEDICINE [address] [place] [address] Shawna Gamble MD [address] [place] [address] Social History Tobacco Use Types Packs/Day Years [...] documented as of this encounter Care Teams Public Relations Player Relationship Specialty Start Date End Date Shawna Gamble MD [address] [place] [address] PCP - General Family Medicine 05/13/22 [employer] 01/22/25 documented as of this encounter
--- OUTSIDE RECORDS SUMMARY | 2025-03-19 12:17 | XMS_ITS | Encounter Summary ---
Author Organization [employer] Address [address] [place] [address] 7[address] [place] [address] Care Team Providers Care Hazardous Waste Technician Name Role Phone Shawna Gamble MD Primary Care Provider [phone] Encounter Details Date Type Department Care Team ([facility] st Contact Info) Description 07/13/2022 Abstract [facility] ADULT DENTAL [address] [place] [address] Uriel Jacobs DDS [address] [place] [address] Social History Tobacco Use Types Packs/Day Years [...] on filedocumented in this encounter Care Teams Hazardous Waste Technician Relationship Specialty Start Date End Date Shawna Gamble MD [address] [place] [address] PCP - General Family Medicine 05/13/22 [employer] 01/22/25 documented as of this encounter
--- OUTSIDE RECORDS SUMMARY | 2025-03-19 12:17 | XMS_ITS | Encounter Summary ---
Author Organization [employer] Address [address] [place] [address] [address]t [place] [address] Care Team Providers Care Denture Model Maker Name Role Phone Makenna Trinidad MD [facility] Primary Care Provider [phone] Encounter Details Date Type Department Care Team [...] on filedocumented in this encounter Care Teams Denture Model Maker Relationship Specialty Start Date End Date Makenna Trinidad MD PCP - General Family Medicine 03/24/19 05/12/22 Shawna Gamble MD [address] [place] [address] PCP - General Family Medicine 05/13/22 [email or web address] 01/22/25 documented as of this encounter
--- OUTSIDE RECORDS SUMMARY | 2025-03-19 12:17 | XMS_ITS | Clinical Summary ---
Author Organization [employer] Address [address] [place] [address] [address] [place] [address] Care Team Providers Care Resident Surgeon Name Role Phone Shawna Gamble MD Primary Care Provider [phone] Allergies Active Allergy Reactions Criticality Noted Date Comments Acetaminophen-Codeine Anxiety Low 06/08/2022 Azithromycin Itching 10/30/2022 [...] mouth. Take with food. 05/13/20 22 Active insulin pen needle (BD Pen [...] Active cholecalcifero l (Vitamin D-3) 250 MCG (70185 UT) capsule TAKE 1 CAPSULE BY MOUTH [...] 03/17/20 23 Active OneTouch Delica Lancets 33G [facility] Use to test blood sugar 2 times [...] twice daily. 180 tablet 12/13/19 24 Active ferrous gluconate (Fergon) 324 (38 Fe) MG tablet TAKE 1 TABLET (324 MG TOTAL) BY MOUTH 1 (ONE) TIME EACH DAY WITH BREAKFAST 03/04/20 24 Active atorvastatin (Lipitor) 80 MG tabletIndicati ons:Atheroscle rosis of coronary artery of hus[place] heart, unspecified vessel or lesion type, unspecified whether angina present TAKE 1 TABLET (80 MG) BY MOUTH IN THE MORNING 90 tablet 3 04/07/20 Active Xarelto 2.5 MG tablet Take 1 tablet (2.5 mg) by mouth 2 times daily. 60 tablet 6 04/17/20 Active Aspirin Low Dose 81 MG EC [...] TO TEST 3 TIMES DAILY 100 each 08/24/19 Active hydrOXYzine HCl (Atarax) 25 MG tablet [...] THE EVENING MEAL 360 tablet 3 11/04/19 Active albuterol 108 (90 Base) MCG/ACT inhalerIndicat ions:Shortness of breath Inhale 2 puffs every 6 (six) hours if needed for wheezing. 18 g 11/04/19 25 2025 Active omeprazole (PriLOSEC) [address] capsule Take 1 capsule by mouth Once per day. 12/05/19 Active Linzess 145 MCG capsule take 1 capsule by mouth every day in the morning 12/29/19 Active memantine (Namenda) 5 MG tablet 01/04/20 25 Active lidocaine (Lidoderm) 5 % patchIndicatio ns:Right hip pain,Pain of left hip Apply 1 patch topically Once per day. Remove & discard patch within 12 hours or as directed by . 30 patch 3 01/11/20 Active Magnesium 400 MG capsuleIndicat ions:Hypomagne semia Take 1 capsule by mouth daily 90 capsule 3 01/27/20 Active loratadine (Claritin) 10 MG tabletIndicati ons:Seasonal allergies TAKE 1 TABLET BY MOUTH once daily as needed 90 tablet 1 01/27/20 Active Lidocaine Pain Relief 4 % patch APPLY 1 PATCH TOPICALLY DAILY NEEDED FOR PAIN 02/28/20 Active Magnesium Oxide -Mg Supplement 400 MG capsule Take 1 capsule by mouth Once per day. 01/27/20 Active lisinopril (Prinivil) 20 MG tablet Take 1 tablet (20 mg) by mouth Once per day. 90 tablet 3 03/14/20 25 2025 Active acetic acid-hydrocort isone (Vosol-HC) otic solution Administer 3 drops into the right ear 2 times daily for 10 days. 10 mL 03/14/20 25 2024 Active acetic acid (Vosol) 2 % otic solution Administer 5 drops into each ear 3 times daily for 7 days. 15 mL 03/19/20 25 2024 Active triamcinolone (Kenalog) 0.1 % cream Apply topically 2 times daily. to affected area 10/23/192024 Discontinued(T herapy completed) DULoxetine (Cymbalta) [address] capsule TAKE 1 CAPSULE (20 MG) BY MOUTH AT BEDTIME. DO NOT CRUSH OR CHEW. 90 capsule 3 03/06/20 24 2024 Discontinued(T herapy completed) lisinopril (Prinivil) 20 MG tablet Take 1 tablet (20 mg) by mouth Once per day. 30 tablet 11 01/09/20 25 2024 Discontinued(R eorder (will not trigger notification to Pharmacy)) acetaminophen (Tylenol 8 Hour) 650 MG ER tablet Take 1 tablet (650 mg) by mouth every 8 (eight) hours if needed for mild pain for up to 10 days. Do not crush, chew, or split. 30 tablet 03/06/20 25 2024 lisinopril 40 MG tablet Take 1 tablet (40 mg) by mouth Once per day. 90 tablet 3 03/09/20 25 2024 Discontinued(D ose adjustment) Active Problems Problem Noted Date Diagnosed Date Mixed conductive and sensori neural hearing loss of both ears 03/15/2025 Peripheral arterial disease 03/15/2025 Right hip pain 01/09/2025 Assessment & Plan [...] - home PT to start soon through [facility] services Fractured dental buddhist with loss of materi al 10/20/2023 Drug-induced xerostomia 10/20/2023 Depression, recurrent 10/17/2023 Assessment & Plan (10/17/2023 5:39 PM EDT): On Elavil, Remeron, Duloxetine for pain, sleep, appetite Would not add additional agents at this time She denies SI/HI Dental caries 04/29/2023 History of coronary artery bypass surgery 2022 Overview (03/17/2023): 07/2022 at [facility] Chest pain on breathing 12/04/2022 Assessment & [...] will send script Needs new blood glucose yajaira Assessment & Plan (06/08/2022 6:09 AM EST): Continue Gabapentin May require dose titration based on weakness Hyperlipidemia 03/10/2012 Assessment & Plan (06/08/2022 6:11 AM EST): Continue Atorvastatin 80mg daily Check lipids in 3 months S/P laparoscopic cholecystectomy 01/22/2012 Resolved Problems Problem Noted Date Diagnosed Date Resolved Date Protein-calorie malnutrition , unspecified severity 07/16/2023 10/23/2024 Mixed conductive and sensori neural hearing loss of left ear 03/17/2023 03/15/2025 Assessment & Plan (03/17/2023 9:06 AM EDT): Refer to audiology Foot infection 10/30/2022 10/23/2024 Overview (03/15/2023): Last [...] to treat patient may need IV antibiotics. Anemia 08/01/2022 03/15/2025 Encounter for surgical after care following surgery [...] Encounters Date Type Department Care Team Description 03/16/[address] [address] An Brown RN CCA form 03/15/[address] [address] Shawna Gamble MD 03/14/2025 3:45 PM EDT Office Visit [address] [address] Shawna Gamble MD Hypomagnesemia (Primary Dx); Type 2 diabetes mellitus with diabetic neuropathy, without long-term current use of insulin (HCC); Mixed conductive and sensorineural hearing loss of both ears; Muscle wasting and atrophy, not elsewhere classified, unspecified upper arm; History of fragility fracture; Chronic kidney disease, stage 2 (mild); Chronic constipation; Orthostatic hypotension; Essential hypertension; Unintentional weight loss; Peripheral arterial disease 03/14/2025 Refill [facility] [address] [place] [address] Shawna Gamble MD 03/14/2025 Travel 03/13/[address] [address] Shawna Gamble MD chart prep 03/09/2025 Orders Only [address] [address] Shawna Gamble MD 03/06/2025 3:45 PM EDT Telemedicine [address] [address] Marcos, MD Robles Closed fracture of one rib of right side, initial encounter (Primary Dx); Rib pain 03/06/2025 Travel 02/27/2025 Orders Only GENERIC EXTERNAL DATA DEPARTMENT Provider, Generic External Data 02/27/[address] [address] Shawna Gamble MD fyi 02/27/[address] [address] Shawna Gamble MD Nurse Triage 02/22/[address] [address] Shawna Gamble MD fyi 02/22/[address] [address] Shawna Gamble MD nov recall 02/12/2025 Orders Only GENERIC EXTERNAL DATA DEPARTMENT Provider, Generic External Data 01/23/[address] [address] Shawna Gamble MD Durable Medical Equipment (DME Request: Bed Assist Bars) 01/23/[address] [address] Shawna Gamble MD verbal orders needed 01/22/[address] [address] Shawna Gamble MD Hypomagnesemia; Seasonal allergies 01/17/[address] [address] Shawna Gamble MD Prior Authorization 01/10/[address] [address] An Brown RN [facility]NA REFERRAL 01/10/[address] [address] Shawna Gamble MD 01/08/2025 3:30 PM EDT Office Visit [address] [address] Shawna Gamble MD Right hip pain (Primary Dx); Type 2 diabetes mellitus with diabetic neuropathy, without long-term current use of insulin ([facility]); Essential hypertension; Orthostatic hypotension; Pain of left hip 01/08/2025 Travel 01/05/2025 Telephone [facility] [address] [place] [address] Shawna Gamble MD chart prep 01/01/2025 Orders Only GENERIC EXTERNAL DATA DEPARTMENT Provider, Generic External Data 01/01/2025 Telephone [facility] [address] [place] [address] Shawna Gamble MD Nurse Triage 12/28/2024 Orders Only GENERIC EXTERNAL DATA DEPARTMENT Provider, Generic External Data from Last 3 Months Immunizations Immunization Administration [...] Mass Index 24.25 03/14/2025 4:12 PM EDT Plan of Treatment Health Maintenance [...] Bitewings 03/03/2024 03/02/2023, 06/18 COVID-19 Vaccine ( - 2024- season) 2025 03/11/2021, 02/04/2021 Influenza Vaccine (#1) [...] exists SDOH Screening 12/01/2025 12/01/2024 Tobacco Screening 03/14/2026 03/14/2025 DTaP/Tdap/Td Vaccines (2 - Td or Tdap) [...] without long-term current use of insulin (HCC) CT HEAD WO CONTRAST Routine 02/27/2025 7 :[address] CHEST W CONTRAST Routine 02/27/2025 7 :[address] CERVICAL SPINE WO CONTRAST Routine 02/27/2025 7:[address] ABDOMEN PELVIS W CONTRAST Routine 02/27/2025 6:59 PM EDT URINALYSIS, COMPLETE, WITH REFLEX TO CULTURE Routine 02/27/2025 6:29 PM EDT HOLD LAVENDER - POSSIBLE HEMATOLOGY Routine 02/27/2025 [...] neuropathy, without long-term current use of insulin ([facility]) POCT GLYCATED HEMOGLOBIN, TOTAL Routine 01/08/2025 3:48 PM EDT Type 2 diabetes mellitus with diabetic neuropathy, without long-term current use of insulin ([facility]) CT HEAD WO CONTRAST Routine [...] neuropathy, without long-term current use of insulin ([facility]/HCC) ALBUMIN, RANDOM URINE W/CREATININE Routine 10/20/2024 10:18 AM EDT Type 2 diabetes mellitus with diabetic neuropathy, without long-term current use of insulin ([facility]/HCC) BI MAMMOGRAM SCREENING TOMOSYNTHESIS BILATERAL Routine 06/30/2024 [...] Relevant to Health Maintenance Results * (ABNORMAL) CBC auto differential (03/19/2025 10:45 AM EST) Only the most recent of4 resultswithin the time period is included. White Blood Count 8.7 4.8 - 10.8 X10*3/uL [facility] Red Blood Count 4.19(L) 4.20 - 5.50 X10*6/uL [facility] Hemoglobin 11.8(L) 12.0 - 16.0 g/dl [facility] Hematocrit 36.3(L) 37.0 - 47.0 % [facility] Mean Corpuscular Volume 86.6 80.0 - 98.0 fL [facility] Mean Corpuscular Hemoglobin 28.2 27.0 - 33.0 pg [facility] Mean Corpuscular HGB Conc 32.5 31.0 - 35.0 g/dl [facility] Red Cell Distribution Width 15.7 11.0 - 16.0 % [facility] Platelet Count 279 160 - 400 X10*3/uL [facility] Mean Platelet Volume 12.0 9.4 - 12.3 fL [facility] Neutrophils Percent Auto 58.1 45 - 73 % [facility] Imm Gran Pct Auto 0.6(H) 0.0 - 0.4 % [facility] Lymphocytes Percent Auto 25.6 20 - 40 % [facility] Monocytes Percent Auto 11.4(H) 2 - 11 % [facility] Eosinophils Percent Auto 3.4 0 - 4 % [facility] Basophils Percent Auto 0.9 0 - 2 % [facility] NRBC Pct Auto 0.0 0.0 - 0.2 /100WBC [facility] Neutrophils Absolute Auto 5.1 2.0 - 8.3 x10*3/uL [facility] Imm Gran Abs Auto 0.05(H) 0.00 - 0.03 X10*3/uL [facility] Lymphocytes Absolute Auto 2.2 1.2 - 4.9 X10*3/uL [facility] Monocytes Absolute Auto 1.0 0.1 - 1.2 X10*3/uL [facility] Eosinophils Absolute Auto 0.3 0.0 - 0.4 X10*3/uL [facility] Basophils Absolute Auto 0.1 0.0 - 0.2 X10*3/uL [facility] NRBC Abs Auto 0.000 0.0 - 0.012 X10*3/uL [facility] Blood Venous blood specimen / Unknown 03/19/2025 10:45 AM EST 03/19/2025 10:45 AM EST us Shawna Gamble MD LAB BLOOD ORDERABLES Final Res ult [facility] [address] [place] [address] [phone] * (ABNORMAL) POCT Glucose (03/14/2025 4:13 PM EDT) Only the most recent of2 resultswithin the time period is included. [facility] Glucose Blood, POC 209(A) 60 - 200 mg/dL QC Media Lot # [id number] Lot# Expiration Date Blood Capillary blood specimen / Unknown 03/14/2025 4:13 PM EDT Shawna Gamble MD POINT OF CARE TEST ENTER/EDIT ORDERABLES Final Result * CT Head w/o Contrast (02/27/2025 7:06 PM EDT) Only the most recent of3 resultswithin the time period is included. Anatomical Region Laterality Modality Head, Neck Computed Tomogra phy 02/27/2025 7:06 PM EDT Narrative 02/27/2025 7:07 PM EDT [place] [address] CT Scan Report Signed Patient: Sonia Marcano MR#: [id number] 5 : 1955 Acct:[id number] Age/Sex: 69 / F ADM Date: 02/27/25 Loc: HO.ED Attending Dr: Ordering Physician: Selena Galo MD Date of Service: 02/27/25 Procedure(s): CT head/brain wo IV con Accession Number(s): [id number] cc: Shawna Gamble; Selena Galo MD Report Number: [id number]: Total DLP = 0.00 mGy-cm Reason for Exam: head injury CLINICAL HISTORY: head injury CT head without contrast Comparison: CT/SR - CT HEAD/BRAIN WO IV CON - 02/12/25 17:29 EDT Findings: No intra-axial mass, midline shift, hydrocephalus, or acute hemorrhage. Mild heterogeneous low attenuation in the periventricular white matter. Mild cerebral atrophy. Moderate to severe calcified atherosclerotic disease of the cavernous portion of the internal carotid arteries. The visualized paranasal sinuses and mastoid air cells are normal. The orbits are within normal limits. No skull fracture. IMPRESSION: 1. Mild chronic periventricular microvascular ischemic disease. 2. Mild cerebral atrophy. 3. Moderate to severe calcified atherosclerotic disease of the cavernous internal carotid arteries. 4. No acute intracranial findings. This document has been electronically signed by: Saeed Mcmahon MD on 02/27/2025 19:06:21 Dictated By: Saeed Mcmahon MD Signed By: <Electronically signed by Saeed Mcmahon MD in OV> 02/27/251906 DD/ 05 TD/TT: 02/27/251905 Church Warden: Procedure Note Syeda, Image - 02/27/[address] [place] [address] [address] Scan Report Signed Patient: Sonia MarcanoMR#: [id number] 5 : 1955cct:[id number] Age/Sex: 69 / FADM Date: 02/27/25 Loc: HO.ED Attending Dr: Ordering Physician: Selena Galo MD Date of Service: 02/27/25 Procedure(s): CT head/brain wo IV con Accession Number(s): [id number] cc: Shawna Gamble; Selena Galo MD Report Number: [id number]: Total DLP = 0.00 mGy-cm Reason for Exam: head injury CLINICAL HISTORY: head injury CT head without contrast Comparison: CT/SR - CT HEAD/BRAIN WO IV CON - 02/12/25 17:29 EDT Findings: No intra-axial mass, midline shift, hydrocephalus, or acute hemorrhage. Mild heterogeneous low attenuation in the periventricular white matter. Mild cerebral atrophy. Moderate to severe calcified atherosclerotic disease of the cavernous portion of the internal carotid arteries. The visualized paranasal sinuses and mastoid air cells are normal. The orbits are within normal limits. No skull fracture. IMPRESSION: 1. Mild chronic periventricular microvascular ischemic disease. 2. Mild cerebral atrophy. 3. Moderate to severe calcified atherosclerotic disease of the cavernous internal carotid arteries. 4. No acute intracranial findings. This document has been electronically signed by: Saeed Mcmahon MD on 02/27/2025 19:06:21 Dictated By: Saeed Mcmahon MD Signed By: <Electronically signed by Saeed Mcmahon MD in OV> 02/27/251906 DD/ 05 TD/TT: 02/27/251905 Church Warden: us [facility] External Provider IMG CT PROCEDURES Final Result * CT Chest w/ Contrast (02/27/2025 7:05 PM EDT) Only the most recent of2 resultswithin the time period is included. Anatomical Region Laterality Modality Body, Chest Computed Tomogra phy 02/27/2025 7:05 PM EDT Narrative 02/27/2025 7:06 PM EDT [address] [address] [address] Scan Report Signed Patient: Sonia Marcano MR#: [id number] 5 : 1955 Acct:[id number] Age/Sex: 69 / F ADM Date: 02/27/25 Loc: HO.ED Attending Dr: Ordering Physician: Selena Galo MD Date of Service: 02/27/25 Procedure(s): CT chest w IV con Accession Number(s): [id number] cc: Shawna Gamble; Selena Galo MD Report Number: [id number]: Total DLP = 0.00 mGy-cm Reason for Exam: fall, right sided pain CLINICAL HISTORY: fall, right sided pain CT chest with contrast Comparison: CT/SR - CT CHEST W IV CON - 02/12/2025 08:01 PM EDT Findings: Calcified coronary atherosclerotic disease. The visualized thyroid and mediastinum are unremarkable. Bibasilar dependent subsegmental atelectasis. Prior cholecystectomy. Hepatic steatosis. No acute fractures. Prior sternotomy. Right posterior 10th rib fracture. Mild osteopenia. IMPRESSION: 1. Right posterior 10th rib fracture. 2. No acute intrathoracic findings. This document has been electronically signed by: Saeed Mcmahon MD on 02/27/2025 19:05:42 Dictated By: Saeed Mcmahon MD Signed By: <Electronically signed by Saeed Mcmahon MD in OV> 02/27/251905 DD/ 04 TD/TT: 02/27/251904 Church Warden: Procedure Note Donotuseinterpreter, Image - 02/27/[address] [address] [address] Scan Report Signed Patient: Sonia MarcanoMR#: [id number] 5 : 4Acct:[id number] Age/Sex: 69 / FADM Date: 02/27/25 Loc: HO.ED Attending Dr: Ordering Physician: Selena Galo MD Date of Service: 02/27/25 Procedure(s): CT chest w IV con Accession Number(s): [id number] cc: Shawna Gamble; Selena Galo MD Report Number: [id number]: Total DLP = 0.00 mGy-cm Reason for Exam: fall, right sided pain CLINICAL HISTORY: fall, right sided pain CT chest with contrast Comparison: CT/SR - CT CHEST W IV CON - 02/12/2025 08:01 PM EDT Findings: Calcified coronary atherosclerotic disease. The visualized thyroid and mediastinum are unremarkable. Bibasilar dependent subsegmental atelectasis. Prior cholecystectomy. Hepatic steatosis. No acute fractures. Prior sternotomy. Right posterior 10th rib fracture. Mild osteopenia. IMPRESSION: 1. Right posterior 10th rib fracture. 2. No acute intrathoracic findings. This document has been electronically signed by: Saeed Mcmahon MD on 02/27/2025 19:05:42 Dictated By: Saeed Mcmahon MD Signed By: <Electronically signed by Saeed Mcmahon MD in OV> 02/27/251905 DD/ 04 TD/TT: 02/27/251904 Church Warden: [facility] External Provider IMG CT PROCEDURES Final Result * CT Cervical Spine w/o Contrast (02/27/2025 7:00 PM EDT) Only the most recent of3 resultswithin the time period is included. Anatomical Region Laterality Modality Spine, C-spine Computed Tomogra phy 02/27/2025 7:00 PM EDT Narrative 02/27/2025 7:01 PM EDT [address] [address] [address] Scan Report Signed Patient: Sonia Marcano MR#: [id number] 5 : 1955 Acct:[id number] Age/Sex: 69 / F ADM Date: 02/27/25 Loc: HO.ED Attending Dr: Ordering Physician: Selena Galo MD Date of Service: 02/27/25 Procedure(s): CT cervical spine wo IV con Accession Number(s): [id number] cc: Shawna Gamble; Selena Galo MD Report Number: [id number]: Total DLP = 0.00 mGy-cm Reason for Exam: trauma CLINICAL HISTORY: trauma CT cervical spine without contrast Comparison: CT/SR - CT CERVICAL SPINE WO IV CON - 02/12/25 17:29 EDT Findings: C5-6: Mild DJD. Grade 1 retrolisthesis C5 over C6. No significant degenerative change. No acute fractures or dislocations. Visualized intracranial contents are unremarkable. No cervical fluid collections or masses. No consolidation or effusion at the lung apices. C1-2: Pchg-bf-ltxsupou anterior osteoarthrosis of the jwfd-tu-vhmehjud mineralized pannus formation surrounding the odontoid. IMPRESSION: 1. Grade 1 retrolisthesis of C5 over C6. 2. Nckq-bo-cchnoeao anterior osteoarthrosis at C1-C2 with dmds-pc-tteapfwt mineralized pannus formation surrounding the odontoid. 3. No acute cervical spine fracture or dislocation. This document has been electronically signed by: Saeed Mcmahon MD on 02/27/2025 19:00:13 Dictated By: Saeed Mcmahon MD Signed By: <Electronically signed by Saeed Mcamhon MD in OV> 02/27/251900 DD/ 99 TD/TT: 02/27/251899 Church Warden: Procedure Note Donotuseinterpreter, Image - 02/27/[address] [place] [address] [address] Scan Report Signed Patient: Sonia MarcanoMR#: [id number] 5 : 1955cct:[id number] Age/Sex: 69 / FADM Date: 02/27/25 Loc: HO.ED Attending Dr: Ordering Physician: Selena Galo MD Date of Service: 02/27/25 Procedure(s): CT cervical spine wo IV con Accession Number(s): [id number] cc: Shawna Gamble; Selena Galo MD Report Number: [id number]: Total DLP = 0.00 mGy-cm Reason for Exam: trauma CLINICAL HISTORY: trauma CT cervical spine without contrast Comparison: CT/SR - CT CERVICAL SPINE WO IV CON - 02/12/25 17:29 EDT Findings: C5-6: Mild DJD. Grade 1 retrolisthesis C5 over C6. No significant degenerative change. No acute fractures or dislocations. Visualized intracranial contents are unremarkable. No cervical fluid collections or masses. No consolidation or effusion at the lung apices. C1-2: Begu-le-rcqsixhm anterior osteoarthrosis of the fccr-ay-kkfntuqf mineralized pannus formation surrounding the odontoid. IMPRESSION: 1. Grade 1 retrolisthesis of C5 over C6. 2. Lnoh-ee-pepkzxgm anterior osteoarthrosis at C1-C2 with bupl-ja-hcyrkqbb mineralized pannus formation surrounding the odontoid. 3. No acute cervical spine fracture or dislocation. This document has been electronically signed by: Saeed Mcmahon MD on 02/27/2025 19:00:13 Dictated By: Saeed Mcmahon MD Signed By: <Electronically signed by Saeed Mcmahon MD in OV> 02/27/251900 DD/ 99 TD/TT: 02/27/251899 Church Warden: [facility] External Provider IMG CT PROCEDURES Final Result * CT Abdomen Pelvis w/ Contrast (02/27/2025 6:59 PM EDT) Only the most recent of2 resultswithin the time period is included. Anatomical Region Laterality Modality Body, Pelvis, Abdomen Computed T omography 02/27/2025 6:59 PM EDT Narrative 02/27/2025 7:00 PM EDT [address] [address] [address] Scan Report Signed Patient: Sonia Marcano MR#: [id number] 5 : 1955 Acct:[id number] Age/Sex: 69 / F ADM Date: 02/27/25 Loc: HO.ED Attending Dr: Ordering Physician: Selena Galo MD Date of Service: 02/27/25 Procedure(s): CT abdomen pelvis w IV con Accession Number(s): [id number] cc: Shawna Gamble; Selena Galo MD Report Number: [id number]: Total DLP = 0.00 mGy-cm Reason for Exam: right flank pain CLINICAL HISTORY: right flank pain CT abdomen and pelvis with contrast Comparison: CT/REG/SR - CT ABDOMEN PELVIS W IV CON - 02/12/25 20:01 EDT Findings: No consolidation or effusion. Prior cholecystectomy. There is diffuse fecal material seen throughout the colon. In the cecum there are multiple subcentimeter oval radiopaque foreign object most likely medicinal tablets. Calcified coronary atherosclerotic disease. Moderate calcified atherosclerotic disease of the abdominal aorta. The appendix not grossly identified. The uterus is moderately atrophic. No acute fracture. Moderate bladder distension at time of imaging. Prior sternotomy. Moderate osteopenia. IMPRESSION: 1. Constipation. 2. Prior cholecystectomy. 3. Moderate bladder distention at time of imaging. This document has been electronically signed by: Saeed Mcmahon MD on 02/27/2025 18:59:48 Dictated By: Saeed Mcmahon MD Signed By: <Electronically signed by Saeed Mcmahon MD in OV> 02/27/25 1900 DD/ 58 TD/TT: 02/27/251858 Church Warden: Procedure Note Donotuseinterpreter, Image - 02/27/[address] [place] [address] [address] Scan Report Signed Patient: Sonia MarcanoMR#: [id number] 5 : 4Acct:[id number] Age/Sex: 69 / FADM Date: 02/27/25 Loc: .ED Attending Dr: Ordering Physician: Selena Galo MD Date of Service: 02/27/25 Procedure(s): CT abdomen pelvis w IV con Accession Number(s): [id number] cc: Shawna Gamble; CloverSelena Wade MD Report Number: [id number]: Total DLP = 0.00 mGy-cm Reason for Exam: right flank pain CLINICAL HISTORY: right flank pain CT abdomen and pelvis with contrast Comparison: CT/REG/SR - CT ABDOMEN PELVIS W IV CON - 02/12/25 20:01 EDT Findings: No consolidation or effusion. Prior cholecystectomy. There is diffuse fecal material seen throughout the colon. In the cecum there are multiple subcentimeter oval radiopaque foreign object most likely medicinal tablets. Calcified coronary atherosclerotic disease. Moderate calcified atherosclerotic disease of the abdominal aorta. The appendix not grossly identified. The uterus is moderately atrophic. No acute fracture. Moderate bladder distension at time of imaging. Prior sternotomy. Moderate osteopenia. IMPRESSION: 1. Constipation. 2. Prior cholecystectomy. 3. Moderate bladder distention at time of imaging. This document has been electronically signed by: Saeed Mcmahon MD on 02/27/2025 18:59:48 Dictated By: Saeed Mcmahon MD Signed By: <Electronically signed by Saeed Mcmahon MD in OV> 02/27/25 1900 DD/ 58 TD/TT: 02/27/251858 Church Warden: [facility] External Provider IMG CT PROCEDURES Final Result * (ABNORMAL) Urinalysis, Complete, with Reflex to Culture (02/27/2025 6:29 PM EDT) Only the most recent of3 resultswithin the time period is included. Color Urine Yellow [facility] Appearance Urine Clear [facility] PH 7.5 5.0 - 9.0 [facility] Glucose Urine UA >=1000(A) Negative mg/dL [facility] Urine Blood Negative Negative [facility] Specific [place] - Urine 1.020 1.005 - 1.025 [facility] Urine Protein Negative Neg-Trace mg/dL [facility] Urine Ketones Negative Negative mg/dL [facility] Nitrite Urine Negative Negative [facility] Leukocyte Esterase Urine Negative Negative [facility] RBC Urine 0-2 0 - 2 /HPF [facility] Urine WBC 0-5 0 - 5 /HPF [facility] Urine Squamous Epithelial Cell 0-2 0 - 2 /HPF [facility] Urine Bacteria None Seen None Seen [facility] Hyaline Casts, Urine 0-2 0 - 2 /LPF [facility] 02/27/2025 6:29 PM EDT 02/27/2025 6:32 PM EDT Narrative [facility] - 02/27/2025 6:47 PM EDT Urine, Clean Catch us Generic External Data Provider LAB URINE ORDERAB LES Final Result Performing Organization Address [facility]/ZIP Co de Phone Number [facility] [address] [place] [phone] * Hold Lavender - Possible Hematology (02/27/2025 5:08 PM EDT) Hold Lavender - Possible Hematololgy SEE NOTE [facility] Comment:Specimen will be hel d untested for 8 hours. Call Hematologyif testing is desired. 02/27/2025 5:08 PM EDT 02/27/2025 5:21 PM EDT us Generic External Data Provider HISTORICAL/NON OR DERABLE LABS Final Result Performing Organization Address [facility] Co de Phone Number [facility] [address] [place] [address] [phone] * High Sensitivity Troponin I (02/27/2025 5:08 PM EDT) Only the most recent of2 resultswithin the time period is included. TROPONIN I HIGH SENSITIVITY <2.7 <3.5 - 17.0 ng/L [facility] Comment:The Goins high sens itivity Troponin-I results should beused in conjunction with other diagnostic information suchas ECG, clinical observations and information, and patientsymptoms to aid in the diagnosis of SD. 02/27/2025 5:08 PM EDT 02/27/2025 5:20 PM EDT Generic External Data Provider LAB BLOOD ORDERAB LES Final Result Performing Organization Address [facility] Co de Phone Number [facility] [address] [place] [phone] * (ABNORMAL) Sed Rate by Modified Westergren (02/27/2025 5:08 PM EDT) Erythrocyte Sedimentation Rate 23(H) 0 - 20 MM/HR [facility] Comment:Patients with polycy themia and many hemoglobin abnormalitiesmay have depressed sed rates whereas patients with anemiamay have elevated sed rates. 02/27/2025 5:08 PM EDT 02/27/2025 5:20 PM EDT Generic External Data Provider LAB BLOOD ORDERAB LES Final Result Performing Organization Address [facility] de Phone Number [facility] [address] [place] [address] [phone] * C-reactive Protein (02/27/2025 5:08 PM EDT) Only the most recent of2 resultswithin the time period is included. C Reactive Protein 0.15 < or = 0.50 mg/dL [facility] 02/27/2025 5:08 PM EDT 02/27/2025 5:20 PM EDT Generic External Data Provider LAB BLOOD ORDERAB LES Final Result Performing Organization Address [facility] Co de Phone Number [facility] [address] [place] [phone] * Lipase (02/27/2025 5:08 PM EDT) Lipase 38 8 - 78 U/L [facility] 02/27/2025 5:08 PM EDT 02/27/2025 5:20 PM EDT Generic External Data Provider LAB BLOOD ORDERAB LES Final Result Performing Organization Address [facility] de Phone Number [facility] [address] [place] [address] [phone] * (ABNORMAL) Hepatic Function Panel (02/27/2025 5:08 PM EDT) Bilirubin, Total 0.3 0.0 - 1.0 mg/dL [facility] Bilirubin, Direct 0.1 0.0 - 0.5 mg/dL [facility] Aspartate Amino Transferase 35(H) 5 - 31 U/L [facility] Comment:Slight Hemolysis.Int erpret result with caution. Alanine Aminotransferase 24 0 - 31 U/L [facility] Total Protein 7.4 6.5 - 8.0 g/dL [facility] Albumin Level 4.3 3.5 - 5.0 g/dL [facility] Alkaline Phosphatase 158(H) 39 - 117 U/L [facility] 02/27/2025 5:08 PM EDT 02/27/2025 5:20 PM EDT Generic External Data Provider LAB BLOOD ORDERAB LES Final Result Performing Organization Address [facility] de Phone Number [facility] [address] [place] [address] [phone] * (ABNORMAL) Basic Metabolic Panel (02/27/2025 5:08 PM EDT) Sodium 140 135 - 145 mmol/L [facility] Potassium 4.1 3.3 - 5.1 mmol/L [facility] Comment:Slight Hemolysis.Int erpret result with caution. Chloride 102 96 - 108 mmol/L [facility] Carbon Dioxide 28 22 - 29 mmol/L [facility] Anion Gap 14 12 - 20 [facility] Urea Nitrogen (BUN) 21(H) 9 - 16 mg/dL [facility] Creatinine, Serum 0.98 0.5 - 1.4 mg/dL [facility] Creatinine Clr Calc Pharmacy 45.3 [facility] Comment:Provided height and weight: 157.48 cm,61.235 kg.eGFR (calculated from the MDRD study equation) and eCrCl(calculated from the Cockcroft-Gault equation) are based ondifferent parameters and may not yield comparable results.If eCrCl result is absurd, please check patient'sheight/weight. Estimated Glomerular Filt Rate 56 [facility] Comment:Chronic Kidney Disea se: Estimated GFR < 60 mL/min/1.68p1Ttjzge Kidney Disease: Estimated GFR < 15 mL/min/1.73m2 Glucose 120(H) 60 - 115 mg/dL [facility] Calcium 9.7 8.4 - 10.2 mg/dL [facility] 02/27/2025 5:08 PM EDT 02/27/2025 5:20 PM EDT us Generic External Data Provider LAB BLOOD ORDERAB LES Final Result [facility] [address] [place] [address] [phone] * Prothrombin Time-INR (02/12/2025 5:02 PM EDT) Prothrombin Time 11.8 10.9 - 12.4 SEC [facility] INTERNATIONAL NORM RATIO 1.0 0.9 - 1.1 [facility] Comment:INTERNATIONAL NORMAL IZED RATIO (INR) [...] ORDERAB LES Final Result Performing Organization Address City/[facility]/ZIP Co de Phone Number [facility] [address] [place] [phone] * (ABNORMAL) Magnesium (02/12/2025 5:02 PM EDT) Only the most recent of2 resultswithin the time period is included. Magnesium 1.5(L) 1.6 - 2.6 mg/dL [facility] 02/12/2025 5:02 PM EDT 02/12/2025 5:09 PM EDT Generic External Data Provider LAB BLOOD ORDERAB LES Final Result Performing Organization Address [facility] Co de Phone Number [facility] [address] [place] [phone] * (ABNORMAL) Comprehensive Metabolic Panel (02/12/2025 5:02 PM EDT) Sodium 139 135 - 145 mmol/L [facility] Potassium 4.1 3.3 - 5.1 mmol/L [facility] Chloride 101 96 - 108 mmol/L [facility] Carbon Dioxide 25 22 - 29 mmol/L [facility] Anion Gap 17 12 - 20 [facility] Urea Nitrogen (BUN) 18(H) 9 - 16 mg/dL [facility] Creatinine, Serum 1.12 0.5 - 1.4 mg/dL [facility] Creatinine Clr Calc Pharmacy 39.8 [facility] Comment:Provided height and weight: 162.56 cm,61.5 kg.eGFR (calculated from the MDRD study equation) and eCrCl(calculated from the Cockcroft-Gault equation) are based ondifferent parameters and may not yield comparable results.If eCrCl result is absurd, please check patient'sheight/weight. Estimated Glomerular Filt Rate 48 [facility] Comment:Chronic Kidney Disea se: Estimated GFR < 60 mL/min/1.98o2Mwspeq Kidney Disease: Estimated GFR < 15 mL/min/1.73m2 Glucose 180(H) 60 - 115 mg/dL [facility] Calcium 9.9 8.4 - 10.2 mg/dL [facility] Bilirubin, Total 0.2 0.0 - 1.0 mg/dL [facility] Aspartate Amino Transferase 49(H) 5 - 31 U/L [facility] Alanine Aminotransferase 36(H) 0 - 31 U/L [facility] Total Protein 7.5 6.5 - 8.0 g/dL [facility] Albumin Level 4.6 3.5 - 5.0 g/dL [facility] Alkaline Phosphatase 136(H) 39 - 117 U/L [facility] 02/12/2025 5:02 PM EDT 02/12/2025 5:09 PM EDT us Generic External Data Provider LAB BLOOD ORDERAB LES Final Result Performing Organization Address City/State/[facility] Co de Phone Number [facility] [address] [place] [phone] * XR Hip 2 or 3 Views Right (01/08/2025 5:00 PM EDT) Anatomical Region Laterality Modality Lower Extremities, Hip Right Radiograp hic Imaging 01/08/2025 5:00 PM EDT Narrative 01/08/2025 5:27 PM EDT [address] [address] XRay Report Signed Patient: Sonia Marcano MR#: [id number] 5 : 1955 Acct:[id number] Age/Sex: 69 / F ADM Date: 01/08/25 Loc: [facility] Attending Dr: Shawna Gamble MD Ordering Physician: Shawna Gamble Date of Service: 01/08/25 Procedure(s): XR hip RT min 2V Accession Number(s): [id number] cc: Shawna Gamble EXAMINATION: XR HIP, RIGHT [...] OV> 01/08/25 1724 DD/ 1700 TD/TT: 01/08/25 171 Church Warden: Procedure Note Donotuseinterpreter, Image - 01/08/2025 [place] [address] XRay Report Signed Patient: Sonia Marcano#: [id number] 5 : 4Acct:[id number] Age/Sex: 69 / FADM Date: 01/08/25 Loc: [facility] Attending Dr: Shawna Gamble MD Ordering Physician: hSawna Gamble Date of Service: 01/08/25 Procedure(s): XR hip RT min 2V Accession Number(s): [id number] cc: Shawna Gamble EXAMINATION: XR HIP, RIGHT [...] 01/08/25 1724 DD/ 1700 TD/TT: 01/08/25 1715 Church Warden: Shawna Gamble MD IMG XR PROCEDURES Final Result * (ABNORMAL) POCT HGB A1C (01/08/2025 3:48 PM EDT) Pathologist [facility] Hemoglobin A1C 8.3(A) 4.0 - 5.7 % Blood 01/08/2025 3:48 PM EDT Shawna Gamble MD POINT OF CARE TEST ENTER/EDIT ORDERABLES Final Result * Drug Monitoring, Panel 1, Screen, Urine (01/01/2025 10:04 PM EDT) [facility] Opiate Screen Urine Not Detected Not Detect [facility] Comment:Opiate cut-off is 30 0 ng/mL.Positive results are unconfirmed and should not be used fornon-medical purposes. Barbiturates, Urine Not Detected Not Detect [facility] Comment:Barbiturate cut-off is 200 ng/mL.Positive results are unconfirmed and should not be used fornon-medical purposes. Phencyclidine Screen Urine Not Detected Not Detect [facility] Comment:Phencyclidine cut-of f is 25 ng/mL.Positive results are unconfirmed and should not be used fornon-medical purposes. Amphetamine Screen Urine Not Detected Not Detect [facility] Comment:Amphetamine cut-off is 1000 ng/mL.Positive results are unconfirmed and should not be used fornon-medical purposes. Benzodiazepines Screen Urine Not Detected Not Detect [facility] Comment:Benzodiazepine cut-o ff is 200 ng/mL.Positive results are unconfirmed and should not be used fornon-medical purposes. Cocaine Screen Urine Not Detected Not Detect [facility] Comment:Cocaine cut-off is 3 00 ng/mL.Positive results are unconfirmed and should not be used fornon-medical purposes. Cannabinoid Screen Urine Not Detected Not Detect [facility] Comment:Cannabinoid cut-off is 50 ng/mL.Positive results are unconfirmed and should not be used fornon-medical purposes. Methadone Screen, Urine Not Detected Not Detect ng/mL [facility] Comment:Methadone cut-off is 300 ng/mL.Positive results are unconfirmed and should not be used fornon-medical purposes. FENTANYL URINE Not Detected Not Detect [facility] Comment:Fentanyl cut-off is 1 ng/mL.Positive results are unconfirmed and should not be used fornon-medical purposes. Oxycodone Urine Screen Not Detected Not Detect ng/mL [facility] Comment:Oxycodone cut-off is 100 ng/mL.Positive results are unconfirmed and should not be used fornon-medical purposes. Buprenorphine Screen Not Detected Not Detect ng/mL [facility] Comment:Buprenorphine cut-of f is 5 ng/mL.Positive results are unconfirmed and should not be used fornon-medical purposes. 01/01/2025 10:0 4 PM EDT 01/01/2025 10:08 PM EDT us Generic External Data Provider LAB URINE ORDERAB LES Final Result [facility] [address] [place] [phone] * Vitamin D, 25-Hydroxy, Total, Immunoassay (12/28/2024 3:06 PM EDT) Pathologist [facility] Vitamin D 25-OH Total 58.1 >30 ng/mL [facility] Comment: Health Based Reference Values*< 20 ng/mL Ayjzllnww56-69 ng/mL Insufficient> 30 ng/mL Sufficient*Norma TREVINO. N [...] ORDERAB LES Final Result Performing Organization Address [facility] Co de Phone Number [facility] [address] [place] [phone] * Iron And Total Iron Binding Capacity (12/28/2024 3:06 PM EDT) Iron 87 30 - 160 mcg/dL [facility] Total Iron Binding Capacity 291 228 - 428 mcg/dL [facility] Percent Iron Saturation 30 15 - 50 % [facility] Unsaturated Iron Binding 204 ug/dL [facility] 12/28/2024 3:06 PM EDT 12/28/2024 3:06 PM EDT us Generic External Data Provider LAB BLOOD ORDERAB LES Final Result Performing Organization Address [facility] Co de Phone Number [facility] [address] [place] [phone] * Ferritin (12/28/2024 3:06 PM EDT) Ferritin 65 10 - 250 ng/mL [facility] 12/28/2024 3:06 PM EDT 12/28/2024 3:06 PM EDT Generic External Data Provider LAB BLOOD ORDERAB LES Final Result Performing Organization Address [facility] Co de Phone Number [facility] [address] [place] [phone] * (ABNORMAL) Lipid Panel, Standard (10/20/2024 10:23 AM EDT) Triglycerides 98 <150 mg/dL [facility] Comment:Desirable Triglyceri de: less than 150 mg/dLBorderline High Triglyceride 150-199 mg/dLHigh Triglyceride: 200-499 mg/dLVery High Triglyceride: greater than or equal to 5OO mg/dL Cholesterol 103 <200 mg/dL [facility] Comment:Desirable Cholestero l: less than 200 mg/dLBorderline High Cholesterol: 200-239 mg/dLHigh Cholesterol: greater than 239 mg/dL LDL Cholesterol Calculated 44 <100 mg/dL [facility] Comment:Desirable LDL: less than 100 mg/dLNear Optimal/Above Optimal LDL: 110- 129 mg/dLBorderline High LDL: 130-159 mg/dLHigh LDL: 160-189 mg/dLVery High LDL: greater than or equal to 190 mg/dL HDL Cholesterol 40(L) >40 mg/dL [facility] Comment:Desirable HDL: great er than 40 mg/dL Note: This HDL assay may give artificially low results in patients with liver disease. Blood Venous blood specimen / Unknown 10/20/2024 10:23 AM EDT 10/20/2024 10:23 AM EDT us Shawna Gamble MD LAB BLOOD ORDERABLES Final Res ult Performing Organization Address City/[facility]/ZIP Co de Phone Number [facility] [address] [place] [phone] * (ABNORMAL) Albumin, Random Urine W/Creatinine (10/20/2024 10:18 AM EDT) Creatinine, Urine 54.62 mg/dL [facility] Microalbumin Urine 75.0 mg/L [facility] Microalbum Creatinine Ratio Ur 137.3(H) <30 ug/mg cr [facility] Comment:Albumin/Creatinine R atio Reference Ranges: Normal: < 30 ug/mg creatinine Microalbuminuria: 30 - 300 ug/mg creatinineClinical Albuminuria: > 300 ug/mg creatinine Urine (Urine, Random) 10/20/2024 10:18 AM EDT 10/20/2024 11:55 AM EDT us Shawna Gamble MD LAB URINE ORDERABLES Final Res ult [facility] [address] [place] [phone] * BI Mammogram Screening Tomosynthesis Bilateral (06/30/2024 2:15 PM EST) Anatomical Region Laterality Modality Breast Bilateral Mammography 06/30/2024 2:15 PM EST Narrative 07/08/2024 1:56 PM EST [facility] [address] [place] [address] Mammography Report Signed Patient: Sonia Marcano MR#: [id number] 5 : 1955 Acct:[id number] Age/Sex: 68 / F ADM Date: 06/30/24 Loc: HO.MAMMO Attending Dr: Shawna Gamble MD Ordering Physician: Shawna Gamble Results: 1Negative Date of Service: 06/30/24 Follow Up: 1 Year From Orig ina Mammogram Procedure(s): MM tomosynthesis screening BI Accession Number(s): [id number] cc: Shawna Gamble EXAMINATION: MM SCREENING DIGITAL [...] 07/08/24 1353 DD/ 1415 TD/TT: 06/30/24 1426 Church Warden: Procedure Note Donotuseinterpreter, Image - 07/08/20[facility] [address] [place], [place] [address] Mammography Report Signed Patient: Sonia MarcanoMR#: [id number] 5 : 4Acct:[id number] Age/Sex: 68 / FADM Date: 06/30/24 Loc: BarbMAMMO Attending Dr: Shawna Gamble MD Ordering Physician: Tera Gambleults: 1Negative Date of Service: 06/30/24Follow Up: 1 Year From Orig inal Mammogram Procedure(s): MM tomosynthesis screening BI Accession Number(s): [id number] cc: Shawna Gamble EXAMINATION: MM SCREENING DIGITAL [...] Larissa Kendall DO 07/08/2024 01:53 PM EST RP Dictated By: Larissa Kendall DO Signed By: <Electronically signed by Larissa Kendall DO in OV> 07/08/24 1353 DD/ 1415 TD/TT: 06/30/24 1426 Church Warden: Shawna Gamble MD IMG BI PROCEDURES Edited Resul t - Final * Hepatitis C Ab (10/30/2022 9:18 AM EDT) Hepatitis C Antibody Nonreactive Nonreactive [facility] Comment:Antibodies to HCV no t detected; does not exclude early acuteHCV infection. 10/30/2022 9:18 AM EDT 10/30/2022 9:18 AM EDT [facility] External Provider LAB BLO OD ORDERABLES Final Result [facility] [address] [place] [phone] * Hm Colonoscopy (10/11/2020 9:13 AM EDT) Historical Provider HEALTH MAINTENANCE Final Result from Last 3 Months or Most Recently Relevant to Health Maintenance Insurance [facility] [employer] OPT[employer] (HMO D-SNP) [place] [id number] * Guarantor: Sonia Marcano Account Type Relation to Patient Date of Phone Billing Address Personal/Family [facility] [address] [facility] [place] Care Teams Resident Surgeon Relationship Specialty Start Date End Date Shawna Gamble MD [address] [place] [address] [place] [address] PCP - General Family Medicine 05/13/22 [employer] 01/22/25
--- OUTSIDE RECORDS SUMMARY | 2025-03-19 12:17 | XMS_ITS | Encounter Summary ---
Author Organization [employer] Address [address] [facility] [address]t [place] [address] Care Team Providers Care Teacher Industrial Arts Name Role Phone Shawna Gamble MD Primary Care Provider [phone] Reason for Visit * Reason Onset Date Comments CCA form 03/16/2025 Encounter Details Date Type Department Care Team ([facility] Contact Info) Description 03/16/2025 Telephone [facility] MEDICINE [address] [place] [address] An Brown RN [address] [place] [address] CCA form Social History Tobacco Use Types Packs/Day Years [...] Telephone Encounter - An Brown RN - 03/16/2025 1:05 PM EDT [facility] medication management recommendation form completed for noncompliance with lisinopril 40mg. Documented on form that pt. Was restarted on lisinopril 20mg as of 03/14/25. Faxed back, confirmation received. documented in this encounter Plan of Treatment Not on file documented as of this encounter Visit Diagnoses Not on filedocumented in this encounter Additional Health Concerns Assessment Noted Time PHQ-9 Depression Total Score: 6 10/19/19 11:41 AM EDT documented as of this encounter Care Teams Teacher Industrial Arts Relationship Specialty Start Date End Date Shawna Gamble MD [address] [place] [address] PCP - General Family Medicine 05/13/22 [employer] 01/22/25 documented as of this encounter
--- OUTSIDE RECORDS SUMMARY | 2025-03-19 12:18 | XMS_ITS | Encounter Summary ---
Author Organization [employer] Address [address] [facility] [address]t [place] [address] Care Team Providers Care Safety Investigator/Cause Analyst Name Role Phone Shawna Gamble MD Primary Care Provider [phone] Encounter Details Date Type Department Care Team ([facility] st Contact Info) Description 10/20/2024 Orders Only [facility] MEDICINE [address] [place], [place] [phone] Shawna Gamble MD [address] [place] [address] Hypomagnesemia (Primary Dx) Social History Tobacco Use [...] EDT) Magnesium 1.3(LL) 1.6 - 2.6 mg/dL [facility] Comment:Critical value for M AG: Results called to and read back by:Preethi Suarez Person calling: NETO Date: 10/27/24 Time: 1414 Blood Venous blood specimen / Unknown 10/27/2024 12:45 PM EDT 10/27/2024 12:45 PM EDT us Shawna Gamble MD LAB BLOOD ORDERABLES Final Res ult [facility] [address] [place] [phone] documented in this encounter Visit Diagnoses Diagnosis Hypomagnesemia- Primary Disorders of magnesium metabolism documented in this encounter Additional Health Concerns Assessment Noted Time PHQ-9 Depression Total Score: 6 10/19/19 25 11:41 AM EDT documented as of this encounter Care Teams Safety Investigator/Cause Analyst Relationship Specialty Start Date End Date Shawna Gamble MD [address] [place] [phone] PCP - General Family Medicine 05/13/22 [employer] 01/22/25 documented as of this encounter
--- OUTSIDE RECORDS SUMMARY | 2025-03-19 12:18 | XMS_ITS | Encounter Summary ---
Author Organization [employer] Address [address] [facility] [address] [place] [address] Care Team Providers Care Oracle Applications Developer Name Role Phone Shawna Gamble MD Primary Care Provider [phone] Encounter Details Date Type Department Care Team ([facility] st Contact Info) Description 09/27/2023 Orders Only [facility] MEDICINE [address] [place] [address] ProviderShahrzad MD Social History Tobacco Use Types [...] on filedocumented in this encounter Care Teams Oracle Applications Developer Relationship Specialty Start Date End Date Shawna Gamble MD [address] [place] [address] PCP - General Family Medicine 05/13/22 [employer] 01/22/25 documented as of this encounter
--- OUTSIDE RECORDS SUMMARY | 2025-03-19 12:18 | XMS_ITS | Encounter Summary ---
Author Organization [employer] Address [address] [place] [address] [address] [place] [address] Care Team Providers Care Informatics Educator Name Role Phone Shawna Gamble MD Primary Care Provider [phone] Reason for Visit * Reason Comments Med Change Request Encounter Details Date Type Department Care Team ([facility] st Contact Info) Description 02/10/2024 Refill [facility] MEDICINE [address] [place] [address] Anisha Mc MD [address] [place] [address] Social History Tobacco Use Types Packs/Day Years [...] documented as of this encounter Care Teams Informatics Educator Relationship Specialty Start Date End Date Shawna Gamble MD [address] [place] [phone] PCP - General Family Medicine 05/13/22 [employer] 01/22/25 documented as of this encounter
--- OUTSIDE RECORDS SUMMARY | 2025-03-19 12:18 | XMS_ITS | Encounter Summary ---
Author Organization [employer] Address [address] [facility] 7t [place] [address] Care Team Providers Care Air Valve Mechanic Name Role Phone Shanwa Gamble MD Primary Care Provider [phone] Encounter Details Date Type Department Care Team ([facility] st Contact Info) Description 03/22/2023 Abstract [facility] MEDICINE [address] [place] [address] Shawna Gamble MD [address] [place], [place] [phone] Social History Tobacco Use Types Packs/Day Years [...] on filedocumented in this encounter Care Teams Air Valve Mechanic Relationship Specialty Start Date End Date Shawna Gamble MD [address] [place] [address] PCP - General Family Medicine 05/13/22 [employer] 01/22/25 documented as of this encounter
--- OUTSIDE RECORDS SUMMARY | 2025-03-19 12:18 | XMS_ITS | Encounter Summary ---
Author Organization [employer] Address [address] [place] [address] 7t [place] [address] Care Team Providers Care Bit Shaver Name Role Phone Shawna Gamble MD Primary Care Provider [phone] Reason for Visit * Reason Onset Date Comments rs appt 03/29/2023 Encounter Details Date Type Department Care Team ([facility] st Contact Info) Description 03/29/2023 Telephone [facility] [address] [place] [address] Uriel Jacobs DDS [address] [place] [address] rs appt Social History Tobacco Use Types [...] t he electric, gas, oil or water [employer] threatened to shut off services in your [...] on filedocumented in this encounter Care Teams Bit Shaver Relationship Specialty Start Date End Date Shawna Gamble MD [address] [place] [id number] PCP - General Family Medicine 05/13/22 [employer] 01/22/25 documented as of this encounter
--- OUTSIDE RECORDS SUMMARY | 2025-03-19 12:18 | XMS_ITS | Encounter Summary ---
Author Organization [employer] Address [address] [facility] 7t [place] [address] Care Team Providers Care Lace And Textiles Restorer Name Role Phone Shawna Gamble MD Primary Care Provider [phone] Reason for Visit * Reason Comments Med Refill Encounter Details Date Type Department Care Team ([facility] st Contact Info) Description 02/18/2023 Refill [facility] MEDICINE [address] [place] [address] Shawna Gamble MD [address] [place] [address] Primary insomnia Social History Tobacco Use Types [...] sleep documented in this encounter Care Teams Lace And Textiles Restorer Relationship Specialty Start Date End Date Shawna Gamble MD [address] [place] [address] PCP - General Family Medicine 05/13/22 [employer] 01/22/25 documented as of this encounter
--- OUTSIDE RECORDS SUMMARY | 2025-03-19 12:18 | XMS_ITS | Clinical Summary ---
Author Organization [facility] Address [address] [place] [phone] Phone Care Team Providers Care Graphic Design Intern Name Role Phone Reena Marinelli Primary Care Provider [phone] Social History Tobacco Use Types Packs/Day Years [...] file Medical Devices Not on file Insurance [facility] [id number] [facility] MEDICARE [facility]PLACEMENT [facility] MEDICARE [facility]PLACEMENT 12 [facility] MEDICARE [facility]PLACEMENT 12 [facility] MEDICARE REPLACEMENT [facility] MEDICARE REPLACEMENT Care Teams Graphic Design Intern Relationship Specialty Start Date End Date Reena Marinelli PA [address] [place] [address] [email or web address] PCP - General Senior Piping Designer 08/18/19 Additional Source Comments The information contained in this document represents components of the legal health record. It is not the complete legal health record.[facility]
--- OUTSIDE RECORDS SUMMARY | 2025-03-19 12:18 | XMS_ITS | Encounter Summary ---
Author Organization [employer] Address [address] [place] [address] 7 [place] [address] Care Team Providers Care Clinical Cytogenetics Director Name Role Phone Shawna Gamble MD Primary Care Provider [phone] Reason for Visit * Reason Onset Date Comments Durable Medical Equipment 07/03/2022 Encounter Details Date Type Department Care Team ([facility] st Contact Info) Description 07/03/[address] [facility] MEDICINE [address] [place], [place] [phone] Shawna Gamble MD [address] [place] [address] Durable Medical Equipment Social History Tobacco Use [...] 07/15/2022 2:22 PM EST Form received from [employer] for bed pads for signature * Telephone [...] on filedocumented in this encounter Care Teams Clinical Cytogenetics Director Relationship Specialty Start Date End Date Shawna Gamble MD [address] [place] [address] PCP - General Family Medicine 05/13/22 [employer] 01/22/25 documented as of this encounter
--- OUTSIDE RECORDS SUMMARY | 2025-03-19 12:18 | XMS_ITS | Encounter Summary ---
Author Organization [facility] Address [address] [facility] [address] [place] [address] Phone Care Team Providers Care Admeasurer Name Role Phone Reena Marinelli Primary Care Provider [phone] Encounter Details Date Type Department Care Team (Late st Contact Info) Description 08/24/2019 Ancillary Orders [facility] [address] [place] [address] [place] [address] Reena Marinelli PA [address] [place] [address] [email or web address] Social History Tobacco Use Types Packs/Day [...] Palpitations documented in this encounter Care Teams Admeasurer Relationship Specialty Start Date End Date Reena Marinelli PA [address] [place] [address] [email or web address] PCP - General Paper Cone Grader 08/18/19 documented as of this encounter Additional Source Comments The information contained in this document represents components of the legal health record. It is not the complete legal health record.[facility]
--- OUTSIDE RECORDS SUMMARY | 2025-03-19 12:18 | XMS_ITS | Encounter Summary ---
Author Organization [employer] Address [address] [facility] 7t [place] [address] Care Team Providers Care Big Data Lead Name Role Phone Shawna Gamble MD Primary Care Provider [phone] Encounter Details Date Type Department Care Team ([facility] st Contact Info) Description 01/06/2024 Orders Only [facility] [address] [place] [address] Anisha Mc MD [address] [place] [address] Social History Tobacco Use Types Packs/Day Years [...] documented as of this encounter Care Teams Big Data Lead Relationship Specialty Start Date End Date Shawna Gamble MD [address] [place] [id number] PCP - General Family Medicine 05/13/22 [employer] 01/22/25 documented as of this encounter
--- OUTSIDE RECORDS SUMMARY | 2025-03-19 12:18 | XMS_ITS | Encounter Summary ---
Author Organization [employer] Address [address] [facility] 7t [place] [address] Care Team Providers Care Sifting Operator Name Role Phone Shawna Gamble MD Primary Care Provider [phone] Encounter Details Date Type Department Care Team ([facility] st Contact Info) Description 12/01/2023 Orders Only [facility] MEDICINE 230 [place], [place] [phone] Shawna Gamble MD [address] [place] [address] Closed fracture of medial portion of left [...] documented as of this encounter Care Teams Sifting Operator Relationship Specialty Start Date End Date Shawna Gamble MD [address] [place] [address] PCP - General Family Medicine 05/13/22 [employer] 01/22/25 documented as of this encounter
--- OUTSIDE RECORDS SUMMARY | 2025-03-19 12:18 | XMS_ITS | Encounter Summary ---
Author Organization [employer] Address [address] [facility] [address]t [place] [address] Care Team Providers Care Taper Printed Circuit Layout Name Role Phone Shawna Gamble MD Primary Care Provider [phone] Encounter Details Date Type Department Care Team ([facility] st Contact Info) Description 03/15/2023 Orders Only [facility] MEDICINE [address] [place] [address] Shawna Gamble MD [address] [place] [address] Social History Tobacco Use Types Packs/Day Years [...] on filedocumented in this encounter Care Teams Taper Printed Circuit Layout Relationship Specialty Start Date End Date Shawna Gamble MD [address] [place] [address] PCP - General Family Medicine 05/13/22 [employer] 01/22/25 documented as of this encounter
--- OUTSIDE RECORDS SUMMARY | 2025-03-19 12:18 | XMS_ITS | Encounter Summary ---
Author Organization [employer] Address [address] [place] [address] 7t [place] [address] Care Team Providers Care Hammer Fitter Name Role Phone Shawna Gamble MD Primary Care Provider [phone] Reason for Visit * Reason Comments Med Refill Encounter Details Date Type Department Care Team ([facility] st Contact Info) Description 10/14/2024 Refill [facility] AD[facility] [address] [place] [address] Uriel Jacobs DDS [address] [place] [address] Social History Tobacco Use Types Packs/Day Years [...] documented as of this encounter Care Teams Hammer Fitter Relationship Specialty Start Date End Date Shawna Gamble MD [address] [place] [id number] PCP - General Family Medicine 05/13/22 [employer] 01/22/25 documented as of this encounter
--- OUTSIDE RECORDS SUMMARY | 2025-03-19 12:18 | XMS_ITS | Encounter Summary ---
Author Organization [employer] Address [address] [place] [address] 7[address] [place] [address] Care Team Providers Care Director Clinical Operations Name Role Phone Shawna Gamble MD Primary Care Provider [phone] Encounter Details Date Type Department Care Team ([facility] st Contact Info) Description 07/10/2022 Orders Only [facility] MEDICINE [address] [place], [place] [phone] Shawna Gamble MD [address] [place] [address] Hypomagnesemia (Primary Dx) Social History Tobacco Use [...] EDT) Magnesium 1.6 1.6 - 2.6 mg/dL [facility] 12/17/2022 1:12 PM EDT 12/17/2022 1:20 PM EDT us Generic External Data Provider LAB BLOOD ORDERAB LES Final Result [facility] [address] [place] [phone] * (ABNORMAL) Basic Metabolic Panel (12/17/2022 1:12 PM EDT) Sodium 138 135 - 145 mmol/L [facility] Potassium 3.6 3.3 - 5.1 mmol/L [facility] Chloride 101 96 - 108 mmol/L [facility] Carbon Dioxide 24 22 - 29 mmol/L [facility] Anion Gap 17 12 - 20 [facility] Urea Nitrogen (BUN) 12 9 - 16 mg/dL [facility] Creatinine, Serum 0.75 0.5 - 1.4 mg/dL [facility] Estimated Glomerular Filt Rate >60 [facility] Comment:NOTE: For -Am erican individuals, multiply the result by 1.210.Chronic Kidney Disease: Estimated GFR < 60 mL/min/1.96h5Ymdooh Kidney Disease: Estimated GFR < 15 mL/min/1.73m2 Glucose 118(H) 60 - 115 mg/dL [facility] Calcium 10.2 8.4 - 10.2 mg/dL [facility] 12/17/2022 1:12 PM EDT 12/17/2022 1:20 PM EDT [facility] External Provider LAB BLO OD ORDERABLES Final Result Performing Organization Address [facility] Co de Phone Number [facility] [address] [place] [address] [phone] * Vitamin D, 25-Hydroxy, Total, Immunoassay (12/09/2022 12:14 PM EDT) Vitamin D 25-OH Total 57.1 >30 ng/mL [facility] Comment:Health Based Referen ce Values*< 20 ng/mL Eneswaomg45-22 ng/mL Insufficient> 30 ng/mL Sufficient*Norma TREVINO. N [...] ORDERAB LES Final Result Performing Organization Address [facility] Co de Phone Number [facility] [address] [place] [address] [phone] * (ABNORMAL) Magnesium (12/09/2022 12:14 PM EDT) Magnesium 1.5(L) 1.6 - 2.6 mg/dL [facility] 12/09/2022 12:1 4 PM EDT 12/09/2022 12:14 PM EDT Generic External Data Provider LAB BLOOD ORDERAB LES Final Result Performing Organization Address [facility]/ZIP Co de Phone Number [facility] [address] [place] [address] [phone] * Phosphate (As Phosphorus) (12/09/2022 12:14 PM EDT) Phosphorus 3.5 2.7 - 4.5 mg/dL [facility] 12/09/2022 12:1 4 PM EDT 12/09/2022 12:14 PM EDT Generic External Data Provider LAB BLOOD ORDERAB LES Final Result [facility] [address] [place] [phone] * (ABNORMAL) Basic Metabolic Panel (12/09/2022 12:14 PM EDT) Sodium 134(L) 135 - 145 mmol/L [facility] Potassium 4.6 3.3 - 5.1 mmol/L [facility] Chloride 99 96 - 108 mmol/L [facility] Carbon Dioxide 31(H) 22 - 29 mmol/L [facility] Anion Gap 9(L) 12 - 20 [facility] Urea Nitrogen (BUN) 15 9 - 16 mg/dL [facility] Creatinine, Serum 0.87 0.5 - 1.4 mg/dL [facility] Estimated Glomerular Filt Rate >60 [facility] Comment:NOTE: For -Am erican individuals, multiply the result by 1.210.Chronic Kidney Disease: Estimated GFR < 60 mL/min/1.92s7Xsjpef Kidney Disease: Estimated GFR < 15 mL/min/1.73m2 Glucose 273(H) 60 - 115 mg/dL [facility] Calcium 9.4 8.4 - 10.2 mg/dL [facility] 12/09/2022 12:1 4 PM EDT 12/09/2022 12:14 PM EDT [facility] External Provider LAB BLO OD ORDERABLES Final Result Performing Organization Address [facility] de Phone Number [facility] [address] [place] [address] [phone] * (ABNORMAL) Magnesium (11/30/2022 4:06 PM EDT) [facility] Magnesium 1.3(LL) 1.6 - 2.6 mg/dL [facility] Comment:Critical value for t est(s): MAGS Results called to and readback by: DR SALMON Person calling:DOOMOROSF Date: [id number] 11/30/2022 4:06 PM EDT 11/30/2022 5:44 PM EDT [facility] External Provider LAB BLO OD ORDERABLES Final Result Performing Organization Address [facility] Phone Number [facility] [address] [place] [phone] * TSH (11/30/2022 4:06 PM EDT) [facility] Thyroid Stimulating Hormone 1.92 0.32 - 4.0 uIU/mL [facility] Comment:TSH 3rd Generation ( [facility]) 11/30/2022 4:06 PM EDT 11/30/2022 5:44 PM EDT [facility] External Provider LAB BLO OD ORDERABLES Final Result Performing Organization Address [facility] de Phone Number [facility] [address] [place] [phone] * (ABNORMAL) CBC auto differential (11/30/2022 4:06 PM EDT) [facility] White Blood Count 7.3 4.8 - 10.8 X10*3/uL [facility] Red Blood Count 3.62(L) 4.20 - 5.50 X10*6/uL [facility] Hemoglobin 10.4(L) 12.0 - 16.0 g/dl [facility] Hematocrit 32.0(L) 37.0 - 47.0 % [facility] Mean Corpuscular Volume 88.4 80.0 - 98.0 fL [facility] Mean Corpuscular Hemoglobin 28.7 27.0 - 33.0 pg [facility] Mean Corpuscular HGB Conc 32.5 31.0 - 35.0 g/dl [facility] Red Cell Distribution Width 19.0(H) 11.0 - 16.0 % [facility] Platelet Count 277 160 - 400 X10*3/uL [facility] Mean Platelet Volume 11.2 9.4 - 12.3 fL [facility] Neutrophils Percent Auto 49.2 45 - 73 % [facility] Imm Gran Pct Auto 0.3 0.0 - 0.4 % [facility] Lymphocytes Percent Auto 36.0 20 - 40 % [facility] Monocytes Percent Auto 11.4(H) 2 - 11 % [facility] Eosinophils Percent Auto 2.1 0 - 4 % [facility] Basophils Percent Auto 1.0 0 - 2 % [facility] NRBC Pct Auto 0.0 0.0 - 0.2 /100WBC [facility] Neutrophils Absolute Auto 3.6 2.0 - 8.3 x10*3/uL [facility] Imm Gran Abs Auto 0.02 0.00 - 0.03 X10*3/uL [facility] Lymphocytes Absolute Auto 2.6 1.2 - 4.9 X10*3/uL [facility] Monocytes Absolute Auto 0.8 0.1 - 1.2 X10*3/uL [facility] Eosinophils Absolute Auto 0.2 0.0 - 0.4 X10*3/uL [facility] Basophils Absolute Auto 0.1 0.0 - 0.2 X10*3/uL [facility] NRBC Abs Auto 0.000 0.0 - 0.012 X10*3/uL [facility] 11/30/2022 4:06 PM EDT 11/30/2022 5:44 PM EDT [facility] External Provider LAB BLO OD ORDERABLES Final Result [facility] [address] [place] [phone] * T-SPOT??.TB (10/30/2022 9:18 AM EDT) T Spot TB Negative Negative [facility] Comment:A negative test resu lt [...] as aquantitative test. TS PANEL A 0 [facility] TS PANEL B 0 [facility] Negative Control Passed [facility] Positive Control Passed [facility] Comment:For additional infor matfederica, please refer tohttp://education.QM Power/faq/AQF781(This link is being provided for informational/educational purposes only.)THIS TEST WAS PERFORMED AT:[employer]/[id number] [place] [id number] ROBERT MD,PHD 10/30/2022 9:18 AM EDT 10/30/2022 9:18 AM EDT [facility] External Provider LAB BLO OD ORDERABLES Final Result [facility] [address] [place] [phone] * Hepatitis B surface antigen, EIA (10/30/2022 9:18 AM EDT) Hepatitis B Surface Ag Negative Negative [facility] 10/30/2022 9:18 AM EDT 10/30/2022 9:18 AM EDT [facility] External Provider LAB BLO OD ORDERABLES Final Result Performing Organization Address [facility] Co de Phone Number [facility] [address] [place] [phone] * HIV Ab/Ag ([facility]) (10/30/2022 9:18 AM EDT) HIV AB/AG Nonreactive Nonreactive [facility] Comment:HIV-1 p24 Ag and/or HIV-1/HIV-2 Ab not detected.A test result that is nonreactive does not exclude thepossibility of exposure to or infection with HIV-1 and/orHIV-2. Nonreactive results in this assay for individualswith prior exposure to HIV-1 and/or HIV-2 may be due toantigen and antibody levels that are below the limit ofdetection of this assay.[facility] HIV Ag/Ab Combo assay result andsupplemental assay results should be interpreted inconjunction with the patient's clinical presentation,history and other laboratory results. If the results areinconsistent with clinical evidence, additional testing issuggested to confirm the result. 10/30/2022 9:18 AM EDT 10/30/2022 9:18 AM EDT [facility] External Provider LAB BLO OD ORDERABLES Final Result Performing Organization Address [facility] Co de Phone Number [facility] [address] [place] [address] [phone] * Hepatitis C Ab (10/30/2022 9:18 AM EDT) Pathologist [facility] [place] Hepatitis C Antibody Nonreactive Nonreactive [facility] Comment:Antibodies to HCV no t detected; does not exclude early acuteHCV infection. 10/30/2022 9:18 AM EDT 10/30/2022 9:18 AM EDT [facility] External Provider LAB BLO OD ORDERABLES Final Result Performing Organization Address [facility] Co de Phone Number [facility] [address] [place] [phone] * Hepatitis B Core Antibody, Total (10/30/2022 9:18 AM EDT) Pathologist [facility] [place] Hepatitis B Core Antibody Nonreactive Nonreactive [facility] 10/30/2022 9:18 AM EDT 10/30/2022 9:18 AM EDT [facility] External Provider LAB BLO OD ORDERABLES Final Result Performing Organization Address [facility] Co de Phone Number [facility] [address] [place] [phone] * Hepatitis B Surface Antibody, Qualitative (10/30/2022 9:18 AM EDT) Pathologist [facility] [place] ~Hepatitis B Surface Antibody NONREACTIVE Nonreactive [facility] Comment:Nonreactive: < 8.00 mIU/mL 10/30/2022 9:18 AM EDT 10/30/2022 9:18 AM EDT [facility] External Provider LAB BLO OD ORDERABLES Final Result Performing Organization Address [facility] de Phone Number [facility] [address] [place] [phone] * Vitamin B12/Folate, Serum Panel (10/30/2022 9:18 AM EDT) Pathologist [facility] [place] Vitamin B12 546 200 - 900 pg/mL [facility] Comment:NORMAL 200-900 PG/ML INDETERMINATE 160-199 PG/ML DEFICIENT < 160 PG/ML Folate 11.6 > or = 4.0 ng/mL [facility] Comment:Reference Values:> o r = 4.0 ng/mL< 4.0 ng/mL suggests folate deficiency Methotrexate, aminopterin and folinic acid(leucovorin) are chemotherapeutic agents whose molecularstructures are similar to folate; therefore, the Architectfolate assay cannot be used for patients using these drugs. 10/30/2022 9:18 AM EDT 10/30/2022 9:18 AM EDT [facility] External Provider LAB BLO OD ORDERABLES Final Result Performing Organization Address [facility] Co de Phone Number [facility] [address] [place] [phone] * Prealbumin (10/30/2022 9:18 AM EDT) [facility] Prealbumin 26.0 20 - 40 mg/dL [facility] 10/30/2022 9:18 AM EDT 10/30/2022 9:18 AM EDT [facility] External Provider LAB BLO OD ORDERABLES Final Result Performing Organization Address [facility] Co de Phone Number [facility] [address] [place] [phone] * (ABNORMAL) Comprehensive Metabolic Panel (10/30/2022 9:18 AM EDT) [facility] Sodium 137 135 - 145 mmol/L [facility] Potassium 3.8 3.3 - 5.1 mmol/L [facility] Chloride 102 96 - 108 mmol/L [facility] Carbon Dioxide 22 22 - 29 mmol/L [facility] Anion Gap 17 12 - 20 [facility] Urea Nitrogen (BUN) 10 9 - 16 mg/dL [facility] Creatinine, Serum 0.90 0.5 - 1.4 mg/dL [facility] Estimated Glomerular Filt Rate >60 [facility] Comment:NOTE: For -Am erican individuals, multiply the result by 1.210.Chronic Kidney Disease: Estimated GFR < 60 mL/min/[id number] Kidney Disease: Estimated GFR < 15 mL/min/1.73m2 Glucose 134(H) 60 - 115 mg/dL [facility] Calcium 10.0 8.4 - 10.2 mg/dL [facility] Bilirubin, Total 0.5 0.0 - 1.0 mg/dL [facility] Aspartate Amino Transferase 51(H) 5 - 31 U/L [facility] Alanine Aminotransferase 32(H) 0 - 31 U/L [facility] Total Protein 6.9 6.5 - 8.0 g/dL [facility] Albumin Level 3.8 3.5 - 5.0 g/dL [facility] Alkaline Phosphatase 51 39 - 117 U/L [facility] 10/30/2022 9:18 AM EDT 10/30/2022 9:18 AM EDT [facility] External Provider LAB BLO OD ORDERABLES Final Result Performing Organization Address [facility]/ZIP Co de Phone Number [facility] [address] [place] [phone] * (ABNORMAL) Ferritin (08/31/2022 7:32 AM EDT) Ferritin 299(H) 10 - 250 ng/mL [facility] 08/31/2022 7:32 AM EDT 08/31/2022 7:32 AM EDT [facility] External Provider LAB BLO OD ORDERABLES Final Result Performing Organization Address [facility]/ZIP Co de Phone Number [facility] [address] [place] [phone] * B Type Natriuretic Peptide (BNP) (08/31/2022 7:32 AM EDT) B Type Natriuretic Peptide 68 <100 pg/mL [facility] Comment:For those patients w ho are being treated with Natrecor(nesiritide, recombinant BNP), BNP testing should beperformed at least two hours post treatment in order toensure that only endogenous levels of BNP are detected. 08/31/2022 7:32 AM EDT 08/31/2022 7:32 AM EDT [facility] External Provider LAB BLO OD ORDERABLES Final Result Performing Organization Address City/[facility]/ZIP Co de Phone Number [facility] [address] [place] [phone] * (ABNORMAL) Lipase (08/31/2022 7:32 AM EDT) Lipase 154(H) 8 - 78 U/L [facility] 08/31/2022 7:32 AM EDT 08/31/2022 7:32 AM EDT [facility] External Provider LAB BLO OD ORDERABLES Final Result Performing Organization Address City/[facility]/ZIP Co de Phone Number [facility] [address] [place] [phone] * Iron And Total Iron Binding Capacity (08/31/2022 7:32 AM EDT) Iron 36 30 - 160 mcg/dL [facility] Total Iron Binding Capacity 229 228 - 428 mcg/dL [facility] Percent Iron Saturation 16 15 - 50 % [facility] Unsaturated Iron Binding 193 ug/dL [facility] 08/31/2022 7:32 AM EDT 08/31/2022 7:32 AM EDT [facility] External Provider LAB BLO OD ORDERABLES Final Result Performing Organization Address [facility] de Phone Number [facility] [address] [place] [phone] * (ABNORMAL) Basic Metabolic Panel (08/31/2022 7:32 AM EDT) Pathologist [facility] [place] Sodium 138 135 - 145 mmol/L [facility] Potassium 3.8 3.3 - 5.1 mmol/L [facility] Chloride 102 96 - 108 mmol/L [facility] Carbon Dioxide 20(L) 22 - 29 mmol/L [facility] Anion Gap 20 12 - 20 [facility] Urea Nitrogen (BUN) 6(L) 9 - 16 mg/dL [facility] Creatinine, Serum 0.85 0.5 - 1.4 mg/dL [facility] Estimated Glomerular Filt Rate >60 [facility] Comment:NOTE: For -Am erican individuals, multiply the result by 1.210.Chronic Kidney Disease: Estimated GFR < 60 mL/min/1.76t7Xvnjgd Kidney Disease: Estimated GFR < 15 mL/min/1.73m2 Glucose 137(H) 60 - 115 mg/dL [facility] Calcium 9.1 8.4 - 10.2 mg/dL [facility] 08/31/2022 7:32 AM EDT 08/31/2022 7:32 AM EDT [facility] External Provider LAB BLO OD ORDERABLES Final Result Performing Organization Address [facility] Co de Phone Number [facility] [address] [place] [phone] * (ABNORMAL) Hepatic Function Panel (08/31/2022 7:32 AM EDT) Bilirubin, Total 0.4 0.0 - 1.0 mg/dL [facility] Bilirubin, Direct 0.2 0.0 - 0.5 mg/dL [facility] Aspartate Amino Transferase 17 5 - 31 U/L [facility] Alanine Aminotransferase 8 0 - 31 U/L [facility] Total Protein 6.8 6.5 - 8.0 g/dL [facility] Albumin Level 3.8 3.5 - 5.0 g/dL [facility] Alkaline Phosphatase 120(H) 39 - 117 U/L [facility] 08/31/2022 7:32 AM EDT 08/31/2022 7:32 AM EDT us [facility] External Provider LAB BLO OD ORDERABLES Final Result [facility] [address] [place] [phone] * (ABNORMAL) CBC auto differential (08/31/2022 7:32 AM EDT) White Blood Count 12.4(H) 4.8 - 10.8 X10*3/uL [facility] Red Blood Count 3.94(L) 4.20 - 5.50 X10*6/uL [facility] Hemoglobin 11.4(L) 12.0 - 16.0 g/dl [facility] Hematocrit 36.0(L) 37.0 - 47.0 % [facility] Mean Corpuscular Volume 91.4 80.0 - 98.0 fL [facility] Mean Corpuscular Hemoglobin 28.9 27.0 - 33.0 pg [facility] Mean Corpuscular HGB Conc 31.7 31.0 - 35.0 g/dl [facility] Red Cell Distribution Width 14.7 11.0 - 16.0 % [facility] Platelet Count 425(H) 160 - 400 X10*3/uL [facility] Mean Platelet Volume 10.3 9.4 - 12.3 fL [facility] Neutrophils Percent Auto 53.6 45 - 73 % [facility] Imm Gran Pct Auto 0.4 0.0 - 0.4 % [facility] Lymphocytes Percent Auto 30.2 20 - 40 % [facility] Monocytes Percent Auto 10.1 2 - 11 % [facility] Eosinophils Percent Auto 4.6(H) 0 - 4 % [facility] Basophils Percent Auto 1.1 0 - 2 % [facility] NRBC Pct Auto 0.0 0.0 - 0.2 /100WBC [facility] Neutrophils Absolute Auto 6.7 2.0 - 8.3 x10*3/uL [facility] Imm Gran Abs Auto 0.05(H) 0.00 - 0.03 X10*3/uL [facility] Lymphocytes Absolute Auto 3.8 1.2 - 4.9 X10*3/uL [facility] Monocytes Absolute Auto 1.3(H) 0.1 - 1.2 X10*3/uL [facility] Eosinophils Absolute Auto 0.6(H) 0.0 - 0.4 X10*3/uL [facility] Basophils Absolute Auto 0.1 0.0 - 0.2 X10*3/uL [facility] NRBC Abs Auto 0.000 0.0 - 0.012 X10*3/uL [facility] 08/31/2022 7:32 AM EDT 08/31/2022 7:32 AM EDT [facility] External Provider LAB BLO OD ORDERABLES Final Result [facility] [address] [place] [phone] * Hemoglobin A1c (08/31/2022 7:32 AM EDT) Hemoglobin A1c 5.8 % [facility] Comment:Hemoglobin A1C Refer ence Range Adults: 4.8 - 6.0 % Non diabetic: < 6.0 % Goal: < 7.0 %Additional Action Suggested: > 8.0 %Note: Hemoglobin A1c results are invalid for patients with abnormal amounts of HbF. Blood transfusions may impact the HbA1c concentration in the patient sample. Estimated Average Glucose 120 mg/dL [facility] Comment:eAG = Estimated ave rage glucose which is %A1C expressed asaverage glucose, using the formula of the C3G-VyszkmtMxwazdp Glucose study (ADAG), Diabetes Care, Vol.31,#8,Dec. 2007 08/31/2022 7:32 AM EDT 08/31/2022 7:32 AM EDT [facility] External Provider LAB BLO OD ORDERABLES Final Result Performing Organization Address City/[facility]/ZIP Co de Phone Number [facility] [address] [place] [phone] * (ABNORMAL) Basic Metabolic Panel (08/10/2022 4:55 AM EDT) Sodium 137 135 - 145 mmol/L [facility] Potassium 4.7 3.3 - 5.1 mmol/L [facility] Chloride 105 96 - 108 mmol/L [facility] Carbon Dioxide 21(L) 22 - 29 mmol/L [facility] Anion Gap 16 12 - 20 [facility] Urea Nitrogen (BUN) 9 9 - 16 mg/dL [facility] Creatinine, Serum 0.79 0.5 - 1.4 mg/dL [facility] Estimated Glomerular Filt Rate >60 [facility] Comment:NOTE: For -Am erican individuals, multiply the result by 1.210.Chronic Kidney Disease: Estimated GFR < 60 mL/min/1.60r0Yczeoa Kidney Disease: Estimated GFR < 15 mL/min/1.73m2 Glucose 95 60 - 115 mg/dL [facility] Calcium 8.7 8.4 - 10.2 mg/dL [facility] 08/10/2022 4:55 AM EDT 08/10/2022 6:02 AM EDT [facility] External Provider LAB BLO OD ORDERABLES Final Result Performing Organization Address [facility]/ZIP Co de Phone Number [facility] [address] [place] [phone] * (ABNORMAL) CBC auto differential (08/10/2022 4:55 AM EDT) White Blood Count 9.3 4.8 - 10.8 X10*3/uL [facility] Red Blood Count 3.24(L) 4.20 - 5.50 X10*6/uL [facility] Hemoglobin 9.7(L) 12.0 - 16.0 g/dl [facility] Hematocrit 30.5(L) 37.0 - 47.0 % [facility] Mean Corpuscular Volume 94.1 80.0 - 98.0 fL [facility] Mean Corpuscular Hemoglobin 29.9 27.0 - 33.0 pg [facility] Mean Corpuscular HGB Conc 31.8 31.0 - 35.0 g/dl [facility] Red Cell Distribution Width 15.2 11.0 - 16.0 % [facility] Platelet Count 647(H) 160 - 400 X10*3/uL [facility] Mean Platelet Volume 10.1 9.4 - 12.3 fL [facility] Neutrophils Percent Auto 54.9 45 - 73 % [facility] Imm Gran Pct Auto 0.5(H) 0.0 - 0.4 % [facility] Lymphocytes Percent Auto 26.3 20 - 40 % [facility] Monocytes Percent Auto 8.3 2 - 11 % [facility] Eosinophils Percent Auto 8.5(H) 0 - 4 % [facility] Basophils Percent Auto 1.5 0 - 2 % [facility] NRBC Pct Auto 0.0 0.0 - 0.2 /100WBC [facility] Neutrophils Absolute Auto 5.1 2.0 - 8.3 x10*3/uL [facility] Imm Gran Abs Auto 0.05(H) 0.00 - 0.03 X10*3/uL [facility] Lymphocytes Absolute Auto 2.4 1.2 - 4.9 X10*3/uL [facility] Monocytes Absolute Auto 0.8 0.1 - 1.2 X10*3/uL [facility] Eosinophils Absolute Auto 0.8(H) 0.0 - 0.4 X10*3/uL [facility] Basophils Absolute Auto 0.1 0.0 - 0.2 X10*3/uL [facility] NRBC Abs Auto 0.000 0.0 - 0.012 X10*3/uL [facility] 08/10/2022 4:55 AM EDT 08/10/2022 6:02 AM EDT us [facility] External Provider LAB BLO OD ORDERABLES Final Result [facility] [address], [place] [phone] * (ABNORMAL) Comprehensive Metabolic Panel (08/03/2022 5:00 AM EDT) Sodium 136 135 - 145 mmol/L [facility] Potassium 3.9 3.3 - 5.1 mmol/L [facility] Chloride 107 96 - 108 mmol/L [facility] Carbon Dioxide 20(L) 22 - 29 mmol/L [facility] Anion Gap 13 12 - 20 [facility] Urea Nitrogen (BUN) 11 9 - 16 mg/dL [facility] Creatinine, Serum 0.79 0.5 - 1.4 mg/dL [facility] Estimated Glomerular Filt Rate >60 [facility] Comment:NOTE: For -Am erican individuals, multiply the result by 1.210.Chronic Kidney Disease: Estimated GFR < 60 mL/min/1.50q9Sfrqmy Kidney Disease: Estimated GFR < 15 mL/min/1.73m2 Glucose 127(H) 60 - 115 mg/dL [facility] Calcium 8.2(L) 8.4 - 10.2 mg/dL [facility] Bilirubin, Total 0.3 0.0 - 1.0 mg/dL [facility] Aspartate Amino Transferase 16 5 - 31 U/L [facility] Alanine Aminotransferase 7 0 - 31 U/L [facility] Total Protein 4.8(L) 6.5 - 8.0 g/dL [facility] Albumin Level 2.5(L) 3.5 - 5.0 g/dL [facility] Alkaline Phosphatase 80 39 - 117 U/L [facility] 08/03/2022 5:00 AM EDT 08/03/2022 5:47 AM EDT [facility] External Provider LAB BLO OD ORDERABLES Final Result [facility] [address] [place] [address] [phone] * (ABNORMAL) CBC auto differential (08/03/2022 5:00 AM EDT) White Blood Count 8.8 4.8 - 10.8 X10*3/uL [facility] Red Blood Count 2.63(L) 4.20 - 5.50 X10*6/uL [facility] Hemoglobin 8.0(L) 12.0 - 16.0 g/dl [facility] Hematocrit 24.6(L) 37.0 - 47.0 % [facility] Mean Corpuscular Volume 93.5 80.0 - 98.0 fL [facility] Mean Corpuscular Hemoglobin 30.4 27.0 - 33.0 pg [facility] Mean Corpuscular HGB Conc 32.5 31.0 - 35.0 g/dl [facility] Red Cell Distribution Width 15.5 11.0 - 16.0 % [facility] Platelet Count 552(H) 160 - 400 X10*3/uL [facility] Mean Platelet Volume 10.3 9.4 - 12.3 fL [facility] Neutrophils Percent Auto 61.1 45 - 73 % [facility] Imm Gran Pct Auto 0.8(H) 0.0 - 0.4 % [facility] Lymphocytes Percent Auto 21.7 20 - 40 % [facility] Monocytes Percent Auto 10.2 2 - 11 % [facility] Eosinophils Percent Auto 4.9(H) 0 - 4 % [facility] Basophils Percent Auto 1.3 0 - 2 % [facility] NRBC Pct Auto 0.0 0.0 - 0.2 /100WBC [facility] Neutrophils Absolute Auto 5.4 2.0 - 8.3 x10*3/uL [facility] Imm Gran Abs Auto 0.07(H) 0.00 - 0.03 X10*3/uL [facility] Lymphocytes Absolute Auto 1.9 1.2 - 4.9 X10*3/uL [facility] Monocytes Absolute Auto 0.9 0.1 - 1.2 X10*3/uL [facility] Eosinophils Absolute Auto 0.4 0.0 - 0.4 X10*3/uL [facility] Basophils Absolute Auto 0.1 0.0 - 0.2 X10*3/uL [facility] NRBC Abs Auto 0.000 0.0 - 0.012 X10*3/uL [facility] 08/03/2022 5:00 AM EDT 08/03/2022 5:47 AM EDT [facility] External Provider LAB BLO OD ORDERABLES Final Result Performing Organization Address City/[facility]/ZIP Co de Phone Number [facility] [address] [place] [phone] * (ABNORMAL) Magnesium (07/13/2022 8:29 AM EST) Magnesium 1.5(L) 1.6 - 2.6 mg/dL [facility] 07/13/2022 8:29 AM EST 07/13/2022 8:29 AM EST [facility] External Provider LAB BLO OD ORDERABLES Final Result Performing Organization Address [facility] Co de Phone Number [facility] [address] [place] [phone] documented in this encounter Visit Diagnoses Diagnosis Hypomagnesemia- Primary Disorders of magnesium metabolism documented in this encounter Care Teams Director Clinical Operations Relationship Specialty Start Date End Date Shawna Gamble MD [address] [place] [address] PCP - General Family Medicine 05/13/22 RECUPYL 01/22/25 documented as of this encounter
--- OUTSIDE RECORDS SUMMARY | 2025-03-19 12:18 | XMS_ITS | Encounter Summary ---
Author Organization [employer] Address [address] [place] [address] [address] [place] [address] Care Team Providers Care Boat Tender Name Role Phone Shawna Gamble MD Primary Care Provider [phone] Encounter Details Date Type Department Care Team ([facility] st Contact Info) Description 11/25/2022 Telephone [facility] [address] [place], [place] [phone] Shawna Gamble MD [address] [place] [address] Social History Tobacco Use Types Packs/Day Years [...] for VNA services. Please contact edgardo at [phone] Fax number: [phone] documented in this encounter Plan of Treatment Not on file documented as of this encounter Visit Diagnoses Not on filedocumented in this encounter Care Teams Boat Tender Relationship Specialty Start Date End Date Shawna Gamble MD [address] [place] [address] PCP - General Family Medicine 05/13/22 Lumoid 01/22/25 documented as of this encounter
--- OUTSIDE RECORDS SUMMARY | 2025-03-19 12:18 | XMS_ITS | Encounter Summary ---
Author Organization [employer] Address [address] [facility] [address] [place] [address] Care Team Providers Care Airplane Cleaner Name Role Phone Shawna Gamble MD Primary Care Provider [phone] Reason for Visit * Reason Comments Med Refill Encounter Details Date Type Department Care Team ([facility] st Contact Info) Description 05/07/2023 Refill [facility] [address] [place] [address] Shawna Gamble MD [address] [place] [address] Social History Tobacco Use Types Packs/Day Years [...] on filedocumented in this encounter Care Teams Airplane Cleaner Relationship Specialty Start Date End Date Shawna Gamble MD [address] [place] [address] PCP - General Family Medicine 05/13/22 Verdezyne 01/22/25 documented as of this encounter
--- OUTSIDE RECORDS SUMMARY | 2025-03-19 12:18 | XMS_ITS | Data Portability ---
Author Organization [employer] [facility], [facility] Address [address] [place] [address] Care Team Providers Care Rehabilitation Teacher Name Role Phone HIM CCA OTHER Assessment Encounter Date Assessment Date Assessment LastModified by Organization Details LastModified Time 10/21/2023 10/21/2023 I provided real -time medical direction via phone for this encounter, and was available for additional phone based assistance as needed. I have reviewed and agree with the Assessment and Plan as documented by the Coal Loader. We discussed the diagnostic uncertainty of home [...] son who agreed to take her to [place] [facility] or urgent care the following day Advised if develops worsening of any symptoms to call 911- verbalized understanding of instruction [email or web address] Not available 10/22/2023 23:27:07 01/01/2025 01/01/2025 I provided real -time medical direction via phone for this encounter and was available for additional phone-based assistance as needed. I have reviewed and agree with the Assessment and Plan as documented by the Coal Loader. Patient given the opportunity to ask questions. Our service contacted for an assessment of: dizziness As per above, patient with chronic complaints of dizziness, weakness. Has known anemia. Per denture model maker on the scene, VSS, AF Please read the denture model maker note for their exam findings. ECG reviewed, BMP reviewed Impression: Weakness and dizziness Unfortunately after the BMP was obtained, the patient had a mechanical fall as her walker was not locked as she attempted to use it to stand. This resulted in her falling backwards and hitting her head on the radiator. She is fully anticoagulated. Plan: Out of an abundance of caution with HS and full AC, we elected to send the patient to the ED. Expect call made to [facility].. Mechanism of fall was mechanical and accidental and not related to complaints we were called to assess. Allergies: Reviewed [email or web address] [id number] Not available 01/01/2025 18:49:56 Plan of Treatment Reminders Order Date Submit Date Provider Last Modified By Organization Details Last Modified Time Details Appointments None recorded. Lab BMP, serum or plasma 2024 025 [facility], [address] [place] [address], [phone] 5 20:32:06 culture, urine 2023 024 LUIS [facility] (Centralized Electronic Ordering - All Locations), Patient Can Go To The Location Of Their Choice, [id number] 4 12:06:01 urinalysis, dipstick [email or web address], [address] 14:27:04 culture, urine 2023 024 ELYSIAN FIELDS [facility] (Centralized Electronic Ordering - All Locations), Patient Can Go To The Location Of Their Choice, [facility] 4 10:06:31 Referral None recorded. Procedures None recorded. Surgeries None recorded. Imaging electrocard iogram 2024 025 [email or web address] [facility], [address] [place] [address], [address] 5 16:47:19 electrocard iogram 2023 024 [email or web address], [address] 4 23:30:14 Medication Orders nitrofurant oin macrocrysta l 100 mg capsule 2023 024 [email or web address] [id number], [address] [place], [address], 4 16:12:35 Patient TargetsNo targets recorded. Patient InstructionsNo instructions recorded. Reason for Referral None Reported. Results Created Date Observation Date Name Description Value Unit Range Abnormal Flag Note LastModifiedBy Organization Detail LastModifiedTime 11/08/19 24 11/10/2023 URINE CULTU RE, ROUTI NE urine culture, routine Final report Not Available [facility] ([facility]) [address] [place], [address], 11/10/2023 10:06:30 11/08/19 24 11/10/2023 URINE CULTU RE, ROUTI NE result 1 COMMEN T Mixed uroge nital stevan 25,00 0-50, 000 colon y formi ng units per mL Not Available [facility] ([facility]) [address] [place], [address], 11/10/2023 10:06:30 12/14/19 24 12/18/2023 URINE CULTU RE,CO MPREH ENSIV E urine culture,comp rehensive Final report Not Available [facility] ([facility]) [address] [place], [address], 12/18/2023 12:06:01 12/14/19 24 12/18/2023 URINE CULTU RE,CO MPREH ENSIV E result 1 COMMEN T Mixed uroge nital stevan 10,00 0-25, 000 colon y formi ng units per mL Not Available [facility] ([facility]) [address] [place], [address], 12/18/2023 12:06:01 12/14/19 24 12/14/2023 urina lysis , dipst ick Leukocytes + Not Available Main - Insted [address] [place] [address], [phone] 12/14/2023 14:26:25 12/14/19 24 12/14/2023 urina lysis , dipst ick Nitrite negati ve Not Available Main - Inst ed [address] [place] [address], [address] 12/14/2023 14:26:25 12/14/19 24 12/14/2023 urina lysis , dipst ick Protein + Not Available Main - Ins [address], [place], [address] 12/14/2023 14:26:25 12/14/19 24 12/14/2023 urina lysis , dipst ick Blood +++ Not Available Main - Ins [address], [address] 12/14/2023 14:26:25 10/22/19 24 10/22/2023 elect rocar diogr am No observ ation record ed. [email or web address] [facility] - [address], [address] 10/22/2023 23:30:13 01/02/20 25 01/01/2025 elect rocar diogr am No observ ation record ed. [email or web address] [address], [address] 01/01/2025 20:31:45 Result Notes None recorded. Medical Equipment None Reported. Allergies Allergen ID Allergen Name Allergen Category Reaction Reaction Severity Criticality Documentation Date Start Date Code Code System Note Provider Name and Address Organization Details Recorded Time 39814 cortisone medicatio n Not available Not available Not available 01/01/2025 2878 Rx[facility] Available [facility] 5 15:07:58 06785 metformin medicatio n Not available Not available Not available 01/01/2025 6809 RxNorm Not Available [facility] - production 5 15:07:58 65983 oxycodone medicatio n Not available Not available Not available 01/01/2025 7804 Rx[facility] Not Available [facility] 5 15:07:58 76417 tramadol medicatio n Not available Not available Not available 01/01/2025 50939 Rx[facility] Not Available [facility] 5 15:07:58 361 Product containin g penicilli n (product) medicatio n Not available Not available Not available 08/28/2021 53121 8001 SNOMED Not Available [facility] 4 03:39:31 362 Bactrim medicatio n Not available Not available Not available 08/28/2021 20656 9 RxNorm Not Available [facility] - production 4 03:39:31 5193 Toradol medicatio n Not available Not available Not available 10/22/2023 36246 RxNorm Judy Miller MD [address] [facility],[address], [place], [address], [employer] 4 23:23:39 5194 acetamino phen / oxycodone medicatio n Not available Not available Not available 10/22/2023 08979 3 RxNorm Judy Miller MD [address] [facility],[address], [place], [address], [employer] 4 23:23:48 5195 morphine medicatio n Not available Not available Not available 10/22/2023 7052 RxNorm Not Available [facility] 4 03:39:31 5196 codeine medicatio n Not available Not available Not available 10/22/2023 2670 RxNorm Judy Miller MD [address] [place] [address],[address], [place], [address], [employer] 4 23:24:01 5735 azithromy fabien medicatio n Not available Not available Not available 12/14/2023 88068 RxNorm Not Available [facility] 4 03:39:31 5736 acetamino phen medicatio n Not available Not available Not available 12/14/2023 161 RxNorm Not Available [facility] 4 03:39:31 5737 doxycycli ne Not available Not available Not available Not available 12/14/2023 3640 RxNorm Not Available [facility] - production 4 03:39:31 5738 hydrocort isone medicatio n Not available Not available Not available 12/14/2023 5492 RxNorm Yolanda Millan MD [address] [facility],[address], [place], [address], [employer] 4 14:24:20 7747 ketorolac medicatio n Not available Not available Not available 03/14/2024 05751 RxNorm Not Available [facility] - production 4 03:39:31 Medications Name Sig Start Date Stop Date Status Note LastModified by Organization Details LastModified Time vitamin d3 10,000 iu softgels TAKE 1 CAPSULE BY MOUTH TWICE WEEKLY FOR 3 MONTHS active Not Available Not Available No t Available vitamin d3 cap 35312udz active Not Available Not Available Not Available metformin 500 mg tablet active Not Available Not Available Not Available atorvastat in 80 mg tablet TAKE 1 TABLET (80 MG) BY MOUTH IN THE MORNING active Not Available Not Available No t Available gabapentin 600 mg tablet TOME BERNABE TABLETA CUATRO VECES AL MAIDHA 90 active Not Available Not Available No [...] Not Available Not Available No t Available Johnson Milk of Magnesia 400 mg/5 mL oral [...] 32 gauge x 5/32 USE FOR INSULIN INJECTION S ONCE DAILY [...] Body temperature Respiratory rate Heart rate Systolic And Diastolic Systolic And Diastolic Provider Name and Address Organization Details Last Updated DateTime 4 98 % 98 % 41997.7 36 g 76 /min 98.2 [degF] 16 /min 84 /min 104/62 mm[Hg] 138/72 mm[Hg] Not Available [employer] 4 17:48:30 Date Recorded Body temperature Oxygen saturation Oxygen saturation in Arterial blood by Pulse oximetry Respiratory rate Heart rate Systolic And Diastolic Provider Name and Address Organization Details Last Updated DateTime 4 97.4 [degF] 96 % 96 % 16 /min 79 /min 161/77 mm[Hg] Not Available [employer] [employer] 4 19:28:53 Date Recorded Body temperature Body weight Oxygen saturation Oxygen saturation in Arterial blood by Pulse oximetry Heart rate Respiratory rate Oxygen saturation Oxygen saturation in Arterial blood by Pulse oximetry Body weight Heart rate Respiratory rate Body temperature Provider Name and Address Organization Details Last Updated DateTime 3 97.8 [degF] 84272.0 56 g 98 % 98 % 78 /min 18 /min 98 % 98 % 84326.0 56 g 78 /min 18 /min 97.8 [degF] Not Available [facility] - production 3 19:02:36 Date Recorded Heart rate Oxygen saturation Oxygen saturation in Arterial blood by Pulse oximetry Respiratory rate Body weight Body temperature Systolic And Diastolic Systolic And Diastolic Systolic And Diastolic Provider Name and Address Organization Details Last Updated DateTime 3 78 /min 98 % 98 % 18 /min 87075.0 56 g 97.8 [degF] 136/84 mm[Hg] 136/84 mm[Hg] 136/84 mm[Hg] Not Available [employer] - production 3 19:32:13 Date Recorded Body temperature Heart rate Respiratory rate Oxygen saturation Oxygen saturation in Arterial blood by Pulse oximetry Systolic And Diastolic Provider Name and Address Organization Details Last Updated DateTime 4 97.5 [degF] 94 /min 18 /min 95 % 95 % 138/66 mm[Hg] Not Available [employer] 4 14:33:56 Date Recorded Body temperature Respiratory rate Heart rate Oxygen saturation Oxygen saturation in Arterial blood by Pulse oximetry Systolic And Diastolic Provider Name and Address Organization Details Last Updated DateTime 5 97.4 [degF] 18 /min 73 /min 97 % 97 % 98/58 mm[Hg] Not Available [employer] 5 16:45:43 Social History None recorded. Functional Status None recorded. Mental Status None recorded. Family History Nothing Reported. Medical History No medical history recorded. Gynecological HistoryNo gynecological history recorded. Obstetrics History GPAL:G 0 P 0 0 0 0 Past Encounters Encounter ID Performer Location Encounter Start Date Encounter Closed Date Diagnosis/Indication Diagnosis SNOMED-CT Code Diagnosis ICD10 Code Diagnosis IMO Codes Diagnosis Note [id number] Judy Miller MD Main - instED [address] [place] [address] 08/28/2021 18:50:39 01/22/2022 18:02:00 Nausea and vomiting 16347475 R11.2 w/ some mild dehydratio n and weakness [id number] William Ashby MD Main - instED [address] [place] [address] 0 10/25/2021 17:53:19 02/09/2022 11:43:09 Mild dehydration 6347531981 108 E86.0 Sxs similar to past GI episodes; no fevers/chi lls. Unable to get CMP to check Community Health Educator and K+ today. Agrees to IVF and IV Zofran [id number] Judy Miller MD Main - instED [address] [place] [address] 0 02/10/2022 16:22:29 02/16/2022 13:49:15 Chest pain 73187916 R07.9 resolved- most likely anxiety, however patient [...] 911. [place] verbalized understand ing of same [id number] URIEL JETT MD Main - instED [address] [place] [address] 0 09/18/2022 13:17:20 09/21/2022 10:09:15 Viral gastroenteritis 267874611 A08.4 [id number] Lopez Choe MD Main - instED [address] [place] [address] 0 10/05/2022 13:33:35 10/06/2022 14:51:40 Nausea and vomiting 83166387 R11.2 [id number] Mary Carmen Connell MD Main - instED [address] [place] [address] 0 10/23/2022 11:56:24 10/26/2022 13:09:06 COVID-19 971095402 U07.1 [id number] Ana Valdivia MD Main - instED [address] [place] [address] 11/10/2022 18:36:52 11/11/2022 08:50:45 Lethargy 132954129 R53.83 pt with acute on chronic nausea/vom [...] not a medical emergency, I and the denture model maker were concerned about FTT and that she likely needs evaluation in the ED and admission to diagnose underlying process and establish a more durable plan for nutrition. Pt and family elected to go to the ED tonight. [id number] Judy Miller MD Main - instED [address] [place] [address] 10/21/2023 17:48:07 09/15/2024 00:13:09 Fall 4717142 W19.XXXA Secondary to dizziness intermitte ntly. Due to possible dehydratio n I advised holding chlorthali done 25 mg for 48 hours until rechecked [id number] Carmen Vo MD Main - instED [address] [place] [address] 11/08/2023 19:28:51 11/09/2023 16:11:48 Urinary symptoms 049226157 R39.9 68 year old female with a [...] assessment and plan as documented by the denture model maker. I provided real-time medical direction for this encounter and was immediatel y available to provide additional phone-base d assistance as needed. We discussed the diagnostic uncertaint y of home visits and associated risks. We discussed the need to seek care urgently/e mergently in the setting of any new or worsening symptoms. [id number] Yolanda Millan MD Main - [address] [address] 12/14/2023 13:57:08 12/15/2023 10:57:43 Urinary symptoms 610081932 R39.9 Evaluation in the field was performed by my denture model maker colleague, as noted above, I provided real-time [...] shortness of breath, cough, chest pain, fever. [id number] Sharon Lee MD Main-inst ED Medical [address] [address] 01/01/2025 16:45:33 01/01/2025 21:09:58 Dizziness 251254979 R42 42389 Accidental fall 49628209 2 W19.XXXA 6634965 Health Concerns Section Related Observation LastModified by Organization Detai ls LastModified Time None Recorded Concern Status LastModified by Organization Details LastModified Time None Recorded Advance Directives Directive None Recorded Payers Insurance Date Sequence Insurance Name Policy Number Policy Swartz Covered Member ID Swartz Member ID Guarantor Name 04/28/2024 1 [facility] - DOS PRIOR TO 2022 - DUAL ELIGIBLE (MEDICARE REPLACEMENT/ADV ANTAGE - HMO) Sonia Marcano [id number] Sonia Marcano 01/01/2025 1 [facility] - DOS ON OR AFTER 2022 - DUAL ELIGIBLE - RESIDENTIAL OPTIONS AND ONE CARE (MEDICARE REPLACEMENT/ADV ANTAGE - HMO) Sonia Marcano [id number] Sonia Marcano Notes Date Note Type Note Provider Name and Address Organization Details Recorded Time 11/10/2022 text/html CRC Nursing Assessment: Reason For [...] .................... .................... .................... .................... .................... .................... . Coal Loader Note From Mike Pham: Pt presents A@Ox4 [...] Abdomen pain upon palpation all 4 quads. [facility] contacted and advised that pt be seen in the ER. Family agreed and decided they wanted 911 called for ambulance for her. Pt and family requested transport to [facility] ambulance arrived on scene and pt care was transferred. Report given Coal Loader Allergies: Penicillin, Bactrim, Ketorolac .................... .................... .................... .................... .................... .................... .................... . Disposition: Andrey Valdivia MD [address] [place] [address],[address], [place], [address], [employer] 11/10/2022 22:25:14 10/21/2023 text/html ROS as noted in the [facility] CRC Nurse Triage Notes (Gypsy Moeller): Reason For Request: PT fell and scraped her knee/pain/dizziness caused the fall Chief Complaints: Falls, Injury, Pain PMH: Diabetes, CHF, Hypertension, Heart Disease Allergies: Penicillin, Bactrim, Ketorolac Comments: Son calling up to report her family member fall today and scraped her knee, was dizzy prior to fall. Currently member is with her GLASS GRINDER at this time but may be alone after her GLASS GRINDER shift is over. Son reports Tongan speaking onlyNo recent falls, no extreme pain, no acute distress at this time.Son did not elaborate more on this infooLi AVERY .................... .................... .................... .................... .................... .................... .................... . Coal Loader Note From Mike Pham: Pt co knee [...] ekg performed , NS , lungs clear. [facility] contacted and [facility]c bloodwork attempted x3 without success. Poor vasculature. Pt advised to go to pcp or urgent care tomorrow for xray. Pt education on signs indicating the ER. Coal Loader Allergies: Penicillin, Bactrim, Ketorolac .................... .................... .................... .................... .................... .................... .................... . Disposition: Fulfilled Judy Miller MD [address] [facility],[address], [place], [address], [employer] 10/22/2023 23:30:26 11/08/2023 text/html CRC Nurse Triage Notes (Belkis Rosales): Reason For Request: UTI Chief Complaints: UTI/Pyelonephritis, Pain PMH: Diabetes, CHF, Hypertension, Heart Disease Allergies: Penicillin, Bactrim, Ketorolac Comments: Materials Management Supervisor verified the member's name//address and phone number. Member is a 68 yr old female, luxembourgish speaking a/o 3 PMH DM> CHF> HTN [...] s/s and seek emergency treatment if needed Coal Loader POC Test Results from Art Byers - ALS Urine Dipstick (19:27:00) Urine leukocytes: 2+ BRO Urine nitrites: - NIT Urine urobilinogen: - URO Urine protein: + PRO Urine pH: 6.0 pH Urine blood: - BLO Urine specific gravity: 1.010 SG Urine ketones: - KET Urine bilirubin: - ALEXIS Urine glucose: - GLU .................... .................... .................... .................... .................... .................... .................... . Coal Loader Note From Art Byers: Pt reports two weeks ago, while in the ED for a knee injury, she was found to have a UTI, treated with a pill , and not sent home with anything [...] closely, f/u with PCP. Red flags reviewed. [facility] Lab Orders: culture, urine: Performed .................... .................... .................... .................... .................... .................... .................... . Disposition: Fulfilled Carmen Vo MD [address] [facility],[address], [place], [address], [employer]te Up 11/08/2023 21:51:23 12/14/2023 text/html HPI: Call returned to Sonia Marcano to triage below. Reports having pain with passing urination x 1 day. Per pt not dark, odor or with blood. Per pt feeling urgency. Pt denies any pelvic pain, flank pain, n/v or fever. Pt denies any vaginal discharge. Pt unable to come into [facility]. AGrees to [facility] eval to rule out UTI. .................... .................... .................... .................... .................... .................... .................... . CRC Nurse Triage Notes (Rolanda Falk): Chief Complaints: UTI/Pyelonephritis PMH: COPD/Asthma, Diabetes, CHF, Hypertension, Heart Disease Allergies: Acetaminophen, Azithromycin, Doxycycline, Trimethoprim-Sulfame thoxazole, Morphine, Penicillin, Bactrim, Ketorolac Other Allergies: Cortisone, Ketorolac, Metformin, Morphine, Oxycodone, Pioglitazone, tramadol Comments: HPI reviewed. No further information needed to process visit. Coal Loader Organization Information for Tamara Saldaña Business Legal Name: [employer]. Address: [address] [place] [address], Oil Burner Installer: Swapnil STEIN No.: [id number] Coal Loader POC Test Results from Tamara Saldaña Urine Dipstick (1) [14:40] Urine leukocytes: 125 BRO Urine nitrites: - NIT Urine urobilinogen: 0.2 URO Urine protein: 100++ PRO Urine pH: 7.5 pH Urine blood: 50 BLO Urine specific gravity: 1.010 SG Urine ketones: - KET Urine bilirubin: - ALEXIS Urine glucose: - GLU .................... .................... .................... .................... .................... .................... .................... . Coal Loader Note From Tamara Saldaña: Sent to a call for a pt complaining of UTI symptoms. SC[facility] arrives on scene, pt is alert and oriented, airway is patent. Pt's primary language is Tongan. Applications Specialist line used during visit. Pt complains of [...] obtained; urine dip performed; results uploaded to [facility]. [facility] consulted and speaks to pt via phone. Pt's allergies to medication verifed: PCN, Bactrim (sulfa), Azithromycin, Morphine, Percocet, Codeine, Doxycycline, Hydrocortisone, Tramadol, Prednisone. [facility] orders urine culture to be taken to [facility]. [facility] sends script to pt's pharmacy. Red flags discussed. Pt has no further questions. .................... .................... .................... .................... .................... .................... .................... . Disposition: Fulfilled Yolanda Millan MD [address] [facility],[address] [facility], [place], [address], [facility] [place] 12/14/2023 16:12:39 01/01/2025 text/html HPI: Patient with complaints of weakness and dizziness in the home. Recent labs H&H 12.3 36.6Iron 87Magnesium 1.7. RBC 4.10No reported blood in stool. BG today 146 this am.SEE ALLERGIES:cetaminoph en Drug Ingredient Not Specified A llergy 1 06/04/2013 P ast UpdatesAzithromycin Drug Ingredient I tching C ortisone Drug Ingredient NoOther reaction(s): itching all overDoxycycline Drug Ingredient Other reaction(s): itching all overKetorolac Tromethamine s Metformin Drug Ingredient Not Specified A llergy P ast UpdatesOther reaction(s): GI intoleranceMorphine Drug Ingredient Not Specified A llergy P ast UpdatesOxycodone Drug Ingredient Not Specified A llergy 1 06/04/2013 P ast UpdatesOxycodone-harry taminophen Drug U nknown N ot Specified A llergy P ast UpdatesPenicillins Drug Class Not Specified A llergy P ast UpdatesOther reaction(s): Rash, rash Other reaction(s): Not availablePioglitazon e Drug Ingredient Not Specified A llergy P ast UpdatesOther reaction(s): fluid retentionSulfa Antibiotics Drug Class Not Specified A llergy P ast UpdatesOther reaction(s): itching all overSulfamethoxazole -trimethoprim Drug Ingredient Not Specified A llergy P ast UpdatesOther reaction(s): hivesTramadol Drug Ingredient Not Specified A llergy P ast UpdatesTrimethoprim Drug Ingredient Not Specified A llergy P ast UpdatesOther reaction(s): Rash, swollen lipsAcetaminophen-co deine .................... .................... .................... .................... .................... .................... .................... . CRC Nurse Triage Notes (Belkis Rosales): Reason For Request: dizziness Chief Complaints: Dizziness, Weakness PMH: Congestive Heart Failure, Hypertension, Coronary Artery Disease, COPD/Asthma, Chronic Kidney Disease, Diabetes Mellitus Type 2, Hyperlipidemia PMH Reviewed at 01/01/2025 - :07 Allergies Reviewed at 01/01/2025:07 Comments: [facility] reviewed Coal Loader Organization Information for Janiya Zachary Geoffrey Caro Legal Name: [employer]. Address: [address] [place] [address], Oil Burner Installer: Swapnil Quarles MD CLIA No.: [id number] Coal Loader POC Test Results from Zachary Denson - ALS EKG (16:39:26) EKG test performed. Attachments uploaded as part of this test result can be found under Documents section. iSTAT Chem8+ (16:46:32) Na: 133mEq/LK: 3.9mEq/LCl: 97mEq/LiCa: 1.15mmol/LTCO2: 21mmol/LGlu: 269mg/dLBUN: 20mg/dLCrea: 1.4mg/dLHct: 42%Hb: 14.3g/dLAmmol/LCartridge Number: [id number] Attachments uploaded as part of this test result can be found under Documents section. EKG (16:39:26) - This test has been updated by the denture model maker, Zachary Denson at (01/01/2025 18:17:36). The changes are marked in bold.EKG test performed. Attachments uploaded as part of this test result can be found under Documents section. .................... .................... .................... .................... .................... .................... .................... . Coal Loader Note From Zachary Denson: Encountered patient seated upright and conscious, with [...] rhythm with no present ectopy, non-diagnostic for acute STEMI. BMP performed and uploaded. Skin warm, dry and of appropriate color for ethnicity. Head and neck, free of trauma and edema. -JVD. Breath sounds present, clear and equal bilaterally. Abdomen is soft, non-tender and non-distended. Extremities free of trauma and edema. While performing the BMP, this ticket writer had their back towards patient who attempted to stand with the use of her walker, resulting in a fall in which patient fell backwards landing on the radiator lining the apartment. [facility] called and notified immediately, agrees with plan for transport. No loss of consciousness was noted; patient shrieked during the fall and recalls the incident in its entirety. Before assessing c-spine in place of fall, patient was already sitting upright and working to stand on her own. Patient initially refused transport stating that happens when I forget to lock the brakes on my walker but after reconciling patients medication regimen and discovering patient is on Xarelto, this ticket writer advised patient that head injuries in the presence of anti-coagulants should be taken seriously. After some convincing, patient was agreeable to transport. 911 was arranged by this ticket writer on behalf of patient. Attempts to keep patient stationary were unsuccessful following the fall, patient still insisted on ambulating despite being urged not to; stating she had to use the bathroom and change clothing prior to going to the hospital. Patient care was relinquished to [facility] crew with verbal report given, transport destination [facility]. Post fall assessment: Patient remained alert and oriented, answering questions appropriately although not heeding this ticket writer's advice of remaining stationary. Pupils equal round and reactive to light. Head exhibits no signs of trauma, patient reports striking her head and is experiencing some pain. Neck was atraumatic, no deviation or trauma noted to the cervical spine region; patient denies neck pain with range of motion or at rest. Patients back was atraumatic, no signs of bruising or bleeding noted. Patient reports pain in left elbow but exhibits full range of motion and no lacerations or skin tears. [facility] Lab Orders: electrocardiogram: Performed BMP, serum or plasma: Performed .................... .................... .................... .................... .................... .................... .................... . [facility] Consulted: Sharon Lee .................... .................... .................... .................... .................... .................... .................... . Disposition: Fulfilled Sharon Lee MD [address] [facility],[address], [place], [address], Ante Up 01/01/2025 18:50:08 OBGyn Episode No OBEpisode recorded.
--- OUTSIDE RECORDS SUMMARY | 2025-03-19 12:18 | XMS_ITS | Encounter Summary ---
Author Organization [employer] Address [address] [facility] [address] [place] [address] Care Team Providers Care Board Handler Name Role Phone Shawna Gamble MD Primary Care Provider [phone] Reason for Visit * Reason Comments Med Refill Encounter Details Date Type Department Care Team ([facility] st Contact Info) Description 02/26/2023 Refill [facility] [address] [place] [address] hSawna Gamble MD [address] [place] [address] Primary insomnia Social History Tobacco Use Types [...] sleep documented in this encounter Care Teams Board Handler Relationship Specialty Start Date End Date Shawna Gamble MD [address] [place] [address] PCP - General Family Medicine 05/13/22 [employer] 01/22/25 documented as of this encounter
[2025-03-19 12:31] LABS: Magnesium 1.8 mg/dL (1.6-2.6)
== END 2025-03-19 10:17 | disposition home or self-care (01) ==
LOC: HO.LAB 10:16
PROVIDERS: Visit Provider General Practice
DX: E83.42 Hypomagnesemia (principal)
CPT/HCPCS: 36415; 83735; 85025

== ENCOUNTER 2025-04-06 12:41 | Emergency (ER) | payer OTHER, SELFPAY ==
--- OUTSIDE RECORDS SUMMARY | 2025-04-03 14:00 | XMS_ITS | Encounter Summary ---
Author Organization [employer] Address [address] [place] [address] [address] [place] [address] Care Team Providers Care Nutrition Director Name Role Phone Shawna Gamble MD Primary Care Provider [phone] Reason for Referral * Consultation (STAT) - Closed Specialty Diagnoses / Procedures Referred By Edwin t Referred To Contact Podiatry Diagnoses Paronychia of great toe of left foot Amy Camara NP [address] [place] [address] Phone: tel: fax: Mitesh Pedersen DPM [address] [facility] [address] [place] [address] Phone: tel: fax: Referral ID Status Reason Start Date Expiration Date V isits Requested Visits Authorized [id number] Closed Specialty Services Required 04/03/2025 04/03/2026 1 1 Encounter Details Date Type Department Care Team (Late st Contact Info) Description 04/03/2025 2:00 PM EST Office Visit [facility] [address] [place], [place] [phone] Amy Camara NP [address] [place], [place] [phone] Type 2 diabetes mellitus with diabetic neuropathy, without long-term current use of insulin (HCC) (Primary Dx); Paronychia of great toe of left foot Social History Tobacco Use Types Packs/Day Years [...] Sign Reading Time Taken Comments Blood Pressure 150/72 04/03/2025 2:24 PM EST Pulse 78 04/03/2025 2:24 PM EST Temperature 36.3 C (97.4 F) 04/03/2025 2:24 PM EST Respiratory Rate 24 04/03/2025 2:24 PM EST Oxygen Saturation 99% 04/03/2025 2:24 PM EST Inhaled Oxygen Concentration - - Weight 62.1 kg (137 lb) 04/03/2025 2:24 PM EST Height 157.5 cm (5' 2 ) 04/03/2025 2:24 PM EST Body Mass Index 25.06 04/03/2025 2:24 PM EST documented in this encounter Functional Status * Over the last 2 weeks, how often have you been bothered by any of the following problems? Question Answer Date of Assessment Author Feeling nervous, anxious, or on edge 0 04/03/2025 3:14 PM EST Mimi Fernandez [place] Not being able to stop or control worrying 0 04/03/2025 3:14 PM EST Mimi Fernandez MA Worrying too much about different things 0 04/03/2025 3:14 PM EST Mimi Fernandez [place] Trouble relaxing 0 04/03/2025 3:14 PM EST Mimi Wen MA Being so restless that it is hard to sit still 0 04/03/2025 3:14 PM EST Mimi Fernandez MA Becoming easily annoyed or irritable 0 04/03/2025 3:14 PM EST Mimi Fernandez MA Feeling afraid as if something awful might happen 0 04/03/2025 3:14 PM EST Mimi Little Ma, [place] RONEN-7 Total Score 0 04/03/2025 3:14 PM EST Mimi Fernandez MA documented as of this encounter Progress Notes * Amy Camara NP - 04/03/2025 2:00 PM EST Sonia Marcano is a 69 y.o. female who presents to the office for No chief complaint on file. Problem List[1] Medical History[2] Allergies[3] Sonia Marcano, age 69, female - Blood sugar level measured at 186, slightly elevated - Pain and tenderness in the foot, particularly around the toenails - Swelling and redness in the foot, suspected to be related to an ingrown toenail - Pain shooting from the leg, related to the sciatic nerve - No history of hitting the foot or wearing tight shoes Review of Systems Musculoskeletal: Positive for gait problem and joint swelling. Skin: Positive for wound. Negative for color change. BP (!) 150/72 (BP Location: Left arm, Patient Position: Sitting, BP Cuff Size: Adult) Pulse 78 Temp 97.4 ??F (36.3 ??C) (Oral) Resp 24 Ht 5' 2 (1.575 m) Wt 137 lb (62.1 kg) SpO2 99% BMI 25.06 kg/m?? Physical Exam Vitals reviewed. HENT: Head: Normocephalic and atraumatic. Nose: Nose normal. Eyes: Conjunctiva/sclera: Conjunctivae normal. Cardiovascular: Rate and Rhythm: Normal rate and regular rhythm. Pulmonary: Effort: Pulmonary effort is normal. Breath sounds: Normal breath sounds. Musculoskeletal: Cervical back: Normal range of motion and neck supple. Neurological: General: No focal deficit present. Mental Status: She is alert. - SKIN: Examination reveals erythema and tenderness around the toenail, consistent with onychocryptosis and localized paronychia. - NEUROLOGIC: Monofilament test performed; diminished sensation secondary to cold-induced vasoconstriction, but pulses are present. - EXTREMITIES: Examination of the foot shows edema and tenderness, particularly around the toenail. Results: Office Visit on 04/03/2025 Component Date Value Ref Range Status Glucose Blood, POC 04/03/2025 186 60 - 200 mg/dL Final QC Media Lot # 04/03/2025 [id number] Final Lot# Expiration Date 04/03/2025 2,272,[id number] Final Office Visit on 03/14/2025 Component Date Value Ref Range Status Glucose Blood, POC 03/14/2025 209 (A) 60 - 200 mg/dL Final QC Media Lot # 03/14/2025 [id number] Final Lot# Expiration Date 03/14/2025 31,126 Final Magnesium 03/19/2025 1.8 1.6 - 2.6 mg/dL Final White Blood Count 03/19/2025 8.7 4.8 - 10.8 X10*3/uL Final Red Blood Count 03/19/2025 4.19 (L) 4.20 - 5.50 X10*6/uL Final Hemoglobin 03/19/2025 11.8 (L) 12.0 - 16.0 g/dl Final Hematocrit 03/19/2025 36.3 (L) 37.0 - 47.0 % Final Mean Corpuscular Volume 03/19/2025 86.6 80.0 - 98.0 fL Final Mean Corpuscular Hemoglobin 03/19/2025 28.2 27.0 - 33.0 pg Final Mean Corpuscular HGB Conc 03/19/2025 32.5 31.0 - 35.0 g/dl Final Red Cell Distribution Width 03/19/2025 15.7 11.0 - 16.0 % Final Platelet Count 03/19/2025 279 160 - 400 X10*3/uL Final Mean Platelet Volume 03/19/2025 12.0 9.4 - 12.3 fL Final Neutrophils Percent Auto 03/19/2025 58.1 45 - 73 % Final Imm Gran Pct Auto 03/19/2025 0.6 (H) 0.0 - 0.4 % Final Lymphocytes Percent Auto 03/19/2025 25.6 20 - 40 % Final Monocytes Percent Auto 03/19/2025 11.4 (H) 2 - 11 % Final Eosinophils Percent Auto 03/19/2025 3.4 0 - 4 % Final Basophils Percent Auto 03/19/2025 0.9 0 - 2 % Final NRBC Pct Auto 03/19/2025 0.0 0.0 - 0.2 /100WBC Final Neutrophils Absolute Auto 03/19/2025 5.1 2.0 - 8.3 x10*3/uL Final Imm Gran Abs Auto 03/19/2025 0.05 (H) 0.00 - 0.03 X10*3/uL Final Lymphocytes Absolute Auto 03/19/2025 2.2 1.2 - 4.9 X10*3/uL Final Monocytes Absolute Auto 03/19/2025 1.0 0.1 - 1.2 X10*3/uL Final Eosinophils Absolute Auto 03/19/2025 0.3 0.0 - 0.4 X10*3/uL Final Basophils Absolute Auto 03/19/2025 0.1 0.0 - 0.2 X10*3/uL Final NRBC Abs Auto 03/19/2025 0.000 0.0 - 0.012 X10*3/uL Final Assessment & Plan Type 2 diabetes mellitus with diabetic neuropathy, without long-term current use of insulin (HCC) Orders: POCT Glucose Hemoglobin A1c; Future Paronychia of great toe of left foot Orders: Referral to Podiatry; Future acetaminophen (Tylenol 8 Hour) 650 MG ER tablet; Take 1 tablet (650 mg) by mouth every 8 (eight) hours if needed for mild pain for up to 10 days. Do not crush, chew, or split. Type 2 diabetes mellitus with diabetic neuropathy: - Type 2 diabetes mellitus with diabetic neuropathy confirmed. Current blood sugar level is slightly elevated. - Monitor blood sugar levels. Review A1c results when available. Paronychia of great toe of left foot: - Paronychia of the great toe of the left foot due to an ingrown toenail causing localized infection. - Soak foot in warm water with Epsom salts 3 to [address] cotton under the nail edge to relieve pressure and promote healing. Urgent referral to podiatry for further evaluation and management. Use skin pen to outline the area of erythema and monitor for changes. Wear comfortable shoes orsandals that do not exert pressure on the toe. Current Medications[4] Based on our discussion, I have outlined the following instructions for you: - Check your blood sugar levels regularly to keep track of them. - Once your A1c results are available, take a look at them to understand your average blood sugar levels over the past few months. - Soak your foot in warm water with Epsom salts 3 to 4 times a day to help with the infection. - Put a small piece of cotton under the edge of your toenail to relieve pressure and help it heal. - Make an appointment with a social media marketing specialist as soon as possible for further evaluation and treatment. - Use a skin pen to draw around the red area on your toe and keep an eye on it for any changes. - Wear shoes or sandals that are comfortable and do not press on your toe. Thank you again for your visit, and we look forward to supporting you in your journey to better health. This note was drafted using Ambient (AI) technology. The patient/patient's guardian has been informed and has consented to the use of this technology: Yes Visit Conducted in: Greek Translation by: Provided by [facility] staff member Chilango , [1] Patient Active Problem List Diagnosis Coronary atherosclerosis Carpal tunnel syndrome Chronic low back pain Type 2 diabetes mellitus with diabetic neuropathy, unspecified (HCC) Gastritis Hyperlipidemia Essential hypertension Shoulder pain Urge incontinence of urine Excessive attrition of teeth, limited to enamel Dental plaque Missing teeth, acquired Hypomagnesemia Deficiency of macronutrients Chest pain on breathing History of coronary artery bypass surgery Other lack of coordination Muscle wasting and atrophy, not elsewhere classified, unspecified upper arm Dental caries Vitamin D deficiency Unintentional weight loss Stenosis of celiac artery Seasonal allergies Peripheral angiopathy due to type 2 diabetes mellitus (HCC) Orthostatic hypotension Intermittent extrinsic asthma Insomnia due to medical condition Hyponatremia Dyslipidemia Chronic constipation Other fatigue Abdominal pain Depression, recurrent (CMS/HCC) Fractured dental latter-day with loss of material Drug-induced xerostomia Left medial tibial plateau fracture Chronic kidney disease, stage 2 (mild) S/P laparoscopic cholecystectomy Anemia due to stage 3 chronic kidney disease, unspecified whether stage 3a or 3b CKD (CMS/HCC) (HCC) History of fragility fracture Esophageal reflux disease Right hip pain Mixed conductive and sensorineural hearing loss of both ears Peripheral arterial disease Paronychia of great toe of left foot [2] Past Medical History: Diagnosis Date Anxiety Arteriosclerosis Arthritis Asthma Hypertension [3] Allergies Allergen Reactions Azithromycin Itching Cortisone Other reaction(s): itching all over Doxycycline Other reaction(s): itching all over Ketorolac Tromethamine Unknown Metformin Other reaction(s): GI intolerance Morphine Oxycodone Oxycodone-Acetaminophen Unknown Penicillins Other reaction(s): Rash, rash Other reaction(s): Not available Pioglitazone Other reaction(s): fluid retention Sulfa Antibiotics Other reaction(s): itching all over Sulfamethoxazole-Trimethoprim Other reaction(s): hives Tramadol Trimethoprim Other reaction(s): Rash, swollen lips Acetaminophen-Codeine Anxiety [4] Current Outpatient Medications: acetaminophen (Tylenol 8 Hour) 650 MG ER tablet, Take 1 tablet (650 mg) by mouth every 8 (eight) hours if needed for mild pain for up to 10 days. Do not crush, chew, or split., Disp: 30 tablet, Rfl: 0 albuterol 108 (90 Base) MCG/ACT [...] Rfl: 0 cholecalciferol (Vitamin D-3) 250 MCG (31332 UT) capsule, TAKE 1 CAPSULE BY MOUTH [...] gabapentin (Neurontin) 600 MG tablet, TOME BERNABE TABLETA CUATRO VECES AL MADIHA 90, Disp: , Rfl: hydrOXYzine [...] by MD., Disp: 30 patch, Rfl: 3 Lidocaine Pain Relief 4 % patch, APPLY 1 PATCH TOPICALLY DAILY NEEDED FOR PAIN, Disp: , Rfl: Linzess 145 MCG capsule, take 1 capsule [...] THE MORNING, Disp: 90 tablet, Rfl: 1 Magnesium Oxide -Mg Supplement 400 MG capsule, Take 1 capsule by mouth Once per day., Disp: , Rfl: memantine (Namenda) 5 MG tablet, , Disp: [...] Disp: , Rfl: OneTouch Delica Lancets 33G [facility], Use to test blood sugar 2 times [...] tablet, Rfl: 6 documented in this encounter Miscellaneous Notes * Assessment & Plan Note - Amy Camara NP - 04/03/2025 2:00 PM ESTAssociated Problem(s): Type 2 diabetes mellitus with diabetic neuropathy, unspecified (HCC) Orders: POCT Glucose Hemoglobin A1c; Future * Assessment & Plan Note - Amy Camara NP - 04/03/2025 2:00 PM ESTAssociated Problem(s): Paronychia of great toe of left foot Orders: Referral to Podiatry; Future acetaminophen (Tylenol 8 Hour) 650 MG ER tablet; Take 1 tablet (650 mg) by mouth every 8 (eight) hours if needed for mild pain for up to 10 days. Do not crush, chew, or split. documented in this encounter Plan of Treatment Scheduled Orders Name Type Priority Associated Diagnoses Orde r Schedule Hemoglobin A1c Lab Routine Type 2 diabetes mellitus with diabetic neuropathy, without long-term current use of insulin (HCC) Expected: 04/03/2025 (Approximate), Expires: 04/03/2026 Scheduled Referrals Name Type Priority Associated Diagnoses Orde r Schedule Referral to Podiatry Outpatient Referral STAT Paronychia of great toe of left foot Expected: 04/03/2025 (Approximate), Expires: 04/03/2026 documented as of this encounter Goals Goal Patient Goal Type Associated Problems Recent Progress Patient-Stated? Author Help patients manage their type 2 diabetes Care Plan Help patients manage their type 2 diabetes No Jason Tariq Weekly blood pressure task Care Plan Weekly blood pressure task No Jason Tariq Help patients manage their type 2 diabetes Care Plan Help patients manage their type 2 diabetes No Jason Tariq Patient has chronic kidney disease Care Plan Patient has chronic kidney disease No Jason Tariq Weekly blood pressure task Care Plan Weekly blood pressure task No Jason Tariq Patient has chronic kidney disease Care Plan Patient has chronic kidney disease No MarcianoJason Weekly blood pressure task Care Plan Weekly blood pressure task No Mimi Fernandez MA Weekly blood pressure task Care Plan Weekly blood pressure task No Mimi Fernandez MA Patient has chronic kidney disease Care Plan Patient has chronic kidney disease No Mimi Fernandez MA Patient has chronic kidney disease Care Plan Patient has chronic kidney disease No Mimi Fernandez MA Weekly blood pressure task Care Plan Weekly blood pressure task No Zuleyka Jordan RN Weekly blood pressure task Care Plan Weekly blood pressure task No Zuleyka Jordan RN Patient has chronic kidney disease Care Plan Patient has chronic kidney disease No Zuleyka Jordan RN Patient has chronic kidney disease Care Plan Patient has chronic kidney disease No Zuleyka Jordan RN Weekly blood pressure task Care Plan Weekly blood pressure task No Pinky Santiago Weekly blood pressure task Care Plan Weekly blood pressure task No Pinky Santiago Patient has chronic kidney disease Care Plan Patient has chronic kidney disease No Pinky Santiago Patient has chronic kidney disease Care Plan Patient has chronic kidney disease No Pinky Santiago documented as of this encounter Procedures Procedure Name Priority Date/Time Associated Diagnosis Comments POCT GLUCOSE Routine 04/03/2025 2:26 PM EST Type 2 diabetes mellitus with diabetic neuropathy, without long-term current use of insulin ([facility]) documented in this encounter Results * POCT Glucose (04/03/2025 2:26 PM EST) Glucose Blood, POC 186 60 - 200 mg/dL QC Media Lot # [id number] Lot# Expiration Date 649,787 Blood Capillary blood specimen / Unknown 04/03/2025 2:26 PM EST Amy Camara NP POINT OF CARE TEST ENTER/EDIT OR DERABLES Final Result documented in this encounter Visit Diagnoses Diagnosis Type 2 diabetes mellitus with diabetic neuropathy, without long-term current use of insulin (HCC)- Primary Paronychia of great toe of left foot documented in this encounter Additional Health Concerns Active Problems Noted Date Diagnosed Date Help patients manage their type 2 diabetes 04/02 Weekly blood pressure task 04/02/2025 Help patients manage their type 2 diabetes 04/02 Patient has chronic kidney disease 04/02/2025 Weekly blood pressure task 04/02/2025 Patient has chronic kidney disease 04/02/2025 Weekly blood pressure task 04/03/2025 Weekly blood pressure task 04/03/2025 Patient has chronic kidney disease 04/03/2025 Patient has chronic kidney disease 04/03/2025 Weekly blood pressure task 04/03/2025 Weekly blood pressure task 04/03/2025 Patient has chronic kidney disease 04/03/2025 Patient has chronic kidney disease 04/03/2025 Weekly blood pressure task 04/04/2025 Weekly blood pressure task 04/04/2025 Patient has chronic kidney disease 04/04/2025 Patient has chronic kidney disease 04/04/2025 Assessment Noted Time PHQ-9 Depression Total Score: 6 10/19/19 25 11:41 AM EDT documented as of this encounter Care Teams Nutrition Director Relationship Specialty Start Date End Date Shawna Gamble MD [address] [place] [id number] PCP - General Family Medicine 05/13/22 [employer] 01/22/25 documented as of this encounter
--- NOTE | ~2025-04-06 | XR_ITS ---
EXAMINATION: XR FOOT, LEFT CLINICAL INFORMATION: redness and swelling COMPARISON: March 16, 2021 TECHNIQUE: AP, lateral, and oblique views of the left foot. FINDINGS: Short linear metallic foreign body is located dorsal to the base of the second and third metatarsals. It was present on the prior. There is diffuse osteopenia. No definite focal erosions are identified. There is mild hallux valgus deformity. Minute marginal osteophytes are noted at the first MTP joint. Small marginal osteophytes are present at the first IP joint. Calcaneal spurs are noted at the plantar fascia and Achilles tendon attachments. Moderate atherosclerotic calcifications are present. XR/XR foot LT min 3V IMPRESSION: Diffuse osteopenia. No definite focal aggressive erosions are identified. There is hallux valgus deformity and mild degenerative changes involving first MTP and IP joints. Electronically signed by: Pj Osullivan MD 04/06/2025 01:48 PM [facility]
--- NOTE | ~2025-04-06 | US_ITS ---
EXAMINATION: US TRIPLEX LOWER EXTREMITY, LEFT CLINICAL INFORMATION: Left foot swelling and redness. COMPARISON: None available. TECHNIQUE: Color-flow triplex imaging with spectral analysis and compression Doppler were performed on the left lower extremity. FINDINGS: Respiratory variation, normal compression and augmented flow are noted throughout the left lower extremity. The visualized common femoral vein, superficial femoral vein, profunda femoral vein, popliteal vein and midcalf peroneal and posterior tibial venous segments show no evidence of deep venous thrombosis. There is no Interiano's cyst. US/US venous duplex LE LT IMPRESSION: No evidence of deep venous thrombosis involving the left lower extremity. Electronically signed by: Te Rubalcava MD 04/06/2025 03:04 PM [facility]
[2025-04-06 12:50] VITALS: BP 145/66; PULSE 78; RESP 18; TEMP 36.3; O2SAT 100; BMI 23.7
--- NOTE | 2025-04-06 12:58 | ED.GENADULT ---
HPI - General Adult General Chief complaint: Extremity Problem Stated complaint: Injury Time Seen by Provider: 04/06/25 14:44 History of Present Illness ED Provider: Elfego SANTILLAN narrative: The patient is a 69-year-old woman with a history of type 2 diabetes who has had pain in her left great toe for over a week. She can not recall any injury. She has had some discoloration to the toenail of the great toe. She has had no fever, sweats, chills. She went to her primary care doctor's office a few days ago earlier this week and was advised to use foot soaks with Epsom salts. She feels that the symptoms of not improved and she has more discomfort than before. She is having some trouble walking or getting her shoes on because of discomfort. She has not had any calf swelling. Related Data Home Medications ?Medication ?Instructions ?Recorded ?Confirmed atorvastatin 80 mg tablet 80 mg PO DAILY 02/12/20 12/28/24 aspirin 81 mg tablet,delayed 81 mg PO DAILY 07/10/20 12/28/24 release (Adult Low Dose Aspirin) metoprolol tartrate 25 mg tablet 1 tab PO BID 03/16/21 12/28/24 sertraline 50 mg tablet 50 mg PO DAILY 12/09/22 01/03/25 duloxetine 20 mg capsule,delayed 20 mg PO DAILY 10/22/23 12/28/24 release furosemide 20 mg tablet 20 mg PO DAILY 10/22/23 12/28/24 lisinopril 40 mg tablet 40 mg PO DAILY 10/22/23 12/28/24 loratadine 10 mg tablet 10 mg PO DAILY 10/22/23 12/28/24 magnesium oxide 400 mg (241.3 mg 400 mg PO QAM 10/22/23 12/28/24 magnesium) tablet rivaroxaban 2.5 mg tablet (Xarelto) mg PO 10/22/23 12/28/24 empagliflozin 10 mg tablet 10 mg PO DAILY 12/28/24 12/28/24 (Jardiance) ferrous gluconate 324 mg (38 mg 324 mg PO QAM 12/28/24 12/28/24 iron) tablet metformin 500 mg tablet,extended 1,000 mg PO BID 12/28/24 12/28/24 release 24 hr pilocarpine HCl 5 mg tablet 5 mg PO TID 12/28/24 12/28/24 hydroxyzine HCl 25 mg tablet 25 mg PO BID PRN 01/03/25 01/03/25 Previous Rx's ?Medication ?Instructions ?Recorded hydrocodone 5 mg-acetaminophen 325 1 tab PO Q8H PRN pain #15 tabs 11/06/23 mg tablet acetaminophen 650 mg 650 mg PO Q8H PRN pain #30 tabs 10/28/24 tablet,extended release (Tylenol Arthritis Pain) omeprazole 40 mg capsule,delayed 40 mg PO DAILY #90 caps 12/04/24 release lidocaine 5 % topical patch 1 patch topical DAILY #30 ea 12/28/24 linaclotide 145 mcg capsule 145 mcg PO QAM 30 days #30 caps 12/28/24 (Linzess) gabapentin 600 mg tablet 600 mg PO QID 90 days #360 tabs 01/03/25 trazodone 100 mg tablet 100 mg PO BEDTIME 90 days #90 tabs 01/03/25 docusate sodium 100 mg capsule 100 mg PO DAILY #90 caps 02/13/25 lidocaine 4 % topical patch 1 patch topical DAILY PRN pain #10 02/27/25 (Lidocaine Pain Relief) ea sennosides 8.6 mg tablet (senna) 17.2 mg (2 x 8.6 mg) PO BEDTIME 03/02/25 PRN for constipation 90 days #180 tabs amitriptyline 50 mg tablet 100 mg (2 x 50 mg) PO BEDTIME 90 03/26/25 days #180 tabs memantine 5 mg tablet 5 mg PO BID #180 tabs 03/27/25 acetaminophen 500 mg capsule 1,000 mg (2 x 500 mg) PO Q8H PRN 04/06/25 fever or pain #14 caps amoxicillin 875 mg-potassium 1 tab PO BID #16 tabs 04/06/25 clavulanate 125 mg tablet Allergies Allergy/AdvReac Type Severity Reaction Status Date / Time cortisone (CORTISONE) Allergy Intermediate RASH Verified 04/06/25 12:55 hydrocortisone Allergy Intermediate Rash Verified 04/06/25 12:55 morphine (Morphine) Allergy Intermediate RASH, Verified 04/06/25 12:55 ITCHING oxycodone (From Percocet) Allergy Intermediate Nausea and Verified 04/06/25 12:55 Vomiting Penicillins Allergy Intermediate ITCHING Verified 04/06/25 12:55 sulfamethoxazole (From Allergy Intermediate Rash Verified 04/06/25 12:55 Bactrim) trimethoprim (From Bactrim) Allergy Intermediate Rash Verified 04/06/25 12:55 acetaminophen (From Percocet) Allergy Mild Unknown Verified 04/06/25 12:55 azithromycin Allergy Mild Unknown Verified 04/06/25 12:55 doxycycline Allergy Mild Unknown Verified 04/06/25 12:55 tramadol Allergy Mild Unknown Verified 04/06/25 12:55 tylenol codeine Allergy Mild Unknown Uncoded 02/27/25 15:56 Review of Systems Review of Systems: Yes all other systems are reviewed and are negative [facility] Past Medical History Medical History Anemia Rheumatic arteritis Neuropathy History of heart attack Diabetes Pancreatic insufficiency GERD (gastroesophageal reflux disease) Surgical History History of open heart surgery Hx of cardiac catheterization Hx of heart artery stent Hx of colonoscopy History of esophagogastroduodenoscopy (EGD) History of bilateral carpal tunnel release History of cholecystectomy H/O colonoscopy with polypectomy Family History Family History Father No problems noted. Mother No problems noted. Brother No problems noted. Sister Breast cancer Lymphoma Sister No problems noted. Sister No problems noted. Sister No problems noted. Social History Social History Household Members: None Are you a primary career resource specialist to a significant other at home: No Do you presently have visiting nurse or other home services: No Alcohol intake: never Patient Tobacco Use Status: Never used Tobacco Smoked in Last 30 Days: No Use of substances other than those prescribed or required for medical reasons: No Advance Directives: No Advance Directives Information Provided: Yes Current occupational status: unemployed and disabled Physical Exam ED Vital Signs: Vital Signs - 24 hr 04/06/25 12:50 04/06/25 14:11 04/06/25 16:44 Temperature 97.4 F 98.1 F 98.1 F Pulse Rate 78 77 77 Respiratory Rate 18 18 18 Blood Pressure 145/66 H 158/79 H 158/79 H Pulse Oximetry 100 100 100 Oxygen Delivery Method Room Air Room Air Room Air BMI result Body Mass Index 23.7 Const Other: The patient is a 69-year-old woman. She is a somewhat frail looking 69-year-old but she is awake and alert and very pleasant. She does not seem in acute distress or obviously acutely ill in any way. Orientation/consciousness: patient oriented x3 HENMT Other: The face is symmetrical. Mucous membranes moist. Eyes Other: Pupils are round equal, conjunctivae are clear, extraocular movements intact Neck Neck: Yes normal visual inspection and Yes full ROM Resp Effort & Inspection: normal respiratory effort Auscultation: clear to auscultation bilaterally Cardio Rate: regular rate Rhythm: regular rhythm Heart sounds: S1 normal heart sound present and S2 normal heart sound present GI Other: Abdomen is soft and nontender Skin Other: there is purplish discoloration to the nail bed of the toenail of the left great toe. There may be some very slight erythema to the skin in the paronychial region around the nail. There was no drainage. No significant soft tissue swelling. Neuro General: patient oriented x3, tone normal, moves all extremities, no focal motor deficits and CN's II-XI intact bilaterally Extrem Other: The patient has discoloration to the nail bed of the toenail of the left great toe. This is a purplish discoloration. There is some slight erythema to the skin of the paronychial around the nail. There was no lymphangitis. The foot is well-perfused. Course Course Course Narrative: RME: 69 yold female present to the ED for left foot pain and redness since yesterday. positive for swelling of foot and redness/toes. Patient also complain for UA. Medications Administered Discontinued Medications Generic Name Dose Route Start Last Admin Trade Name Freq PRN Reason Stop Dose Admin Amoxicillin/Clavulanate Potassium 875 mg 04/06/25 15:51 04/06/25 16:14 Amoxicillin/Potassium Clav 875 Mg Tablet PO 04/06/25 15:52 875 mg ONCE ONE Administration Medical Decision Making Medical Decision Making [facility] Narrative: The patient is a type 2 diabetic with a painful left great toe and discoloration to the nail bed of the toenail of the left great toe. She denies any trauma which would make a subungual hematoma unlikely. Nevertheless it is possible she could have injured her toe without being fully aware. She does not have obvious findings of a severe peripheral neuropathy but she is a type 2 diabetic and it is possible she could have injured her toe without awareness. An x-ray shows no fracture. Also no signs of osteomyelitis. She has a white count of 13.9. On the other hand she has a an undetectable C-reactive protein. I am not certain if this is simply a subungual hematoma and a sterile process or whether there is possibly some degree of an infection present. Given that she has type 2 diabetes I think it would be prudent to cover her with the antibiotics given her white count elevation. The patient has penicillin listed as an allergy that causes itchiness. The patient says she has no recollection of ever being allergic to penicillin. She does recall being allergic to Bactrim. Therefore since it does not clear that she definitely has a penicillin allergy we will put her on a course of Augmentin. She will also be given an open toed shoes (postop shoe) and she should rest and elevate the foot. Follow up with her PCP next week or return to the emergency room if worse. Lab Data 04/06/25 13:16 04/06/25 13:16 Labs: Lab Results 04/06/25 04/06/25 Range/Units 13:16 13:17 WBC 13.9 H (4.8-10.8) X10*3/uL RBC 4.28 (4.20-5.50) X10*6/uL Hgb 11.8 L (12.0-16.0) g/dl Hct 37.3 (37.0-47.0) % MCV 87.1 (80.0-98.0) fL MCH 27.6 (27.0-33.0) pg MCHC 31.6 (31.0-35.0) g/dl RDW 15.9 (11.0-16.0) % Plt Count 291 (160-400) X10*3/uL MPV 11.5 (9.4-12.3) fL Immature Gran % (Auto) 0.4 (0.0-0.4) % Neut % (Auto) 77.6 H (45-73) % Lymph % (Auto) 12.4 L (20-40) % Heard % (Auto) 6.8 (2-11) % Eos % (Auto) 1.9 (0-4) % Baso % (Auto) 0.9 (0-2) % Lymph # (Auto) 1.7 (1.2-4.9) X10*3/uL Heard # (Auto) 1.0 (0.1-1.2) X10*3/uL Eos # (Auto) 0.3 (0.0-0.4) X10*3/uL Baso # (Auto) 0.1 (0.0-0.2) X10*3/uL Abs Immat Gran (auto) 0.05 H (0.00-0.03) X10*3/uL Absolute Neuts (auto) 10.8 H (2.0-8.3) x10*3/uL Absolute Nucleated RBC 0.000 (0.0-0.012) X10*3/uL Nucleated RBC % (auto) 0.0 (0.0-0.2) /100WBC ESR 25 H (0-20) MM/HR Sodium 136 (135-145) mmol/L Potassium 4.6 (3.3-5.1) mmol/L Chloride 98 (96-108) mmol/L Carbon Dioxide 28 (22-29) mmol/L Anion Gap 15 (12-20) BUN 17 H (9-16) mg/dL Creatinine 0.93 (0.5-1.4) mg/dL Estim Creat Clear Calc 45.8 Estimated GFR 59 Random Glucose 343 H (60-115) mg/dL Uric Acid 4.3 (2.4-5.7) mg/dL Calcium 10.0 (8.4-10.2) mg/dL Total Bilirubin 0.3 (0.0-1.0) mg/dL AST 49 H (5-31) U/L ALT 37 H (0-31) U/L Alkaline Phosphatase 169 H (39-117) U/L Troponin I High Sens < 2.7 (<3.5-17.0) ng/L C-Reactive Protein < 0.10 (< or = 0.50) mg/dL Total Protein 8.0 (6.5-8.0) g/dL Albumin 4.7 (3.5-5.0) g/dL Urine Color Yellow Urine Appearance Clear Urine pH 8.5 (5.0-9.0) Ur Specific Hume 1.015 (1.005-1.025) Urine Protein Trace (Neg-Trace) mg/dL Urine Glucose (UA) >=1000 H (Negative) mg/dL Urine Ketones Negative (Negative) mg/dL Urine Blood Large (3+) H (Negative) Urine Nitrite Negative (Negative) Ur Leukocyte Esterase Moderate (2+) H (Negative) Urine RBC 3-5 H (0-2) /HPF Urine WBC >50 H (0-5) /HPF Ur Squamous Epith Cells 0-2 (0-2) /HPF Urine Bacteria 4+ (None Seen) Hyaline Casts 0-2 (0-2) /LPF Discharge Plan Discharge Clinical Impression: Pain of left great toe, Subungual hematoma of great toe of left foot Patient Disposition: Home, Self-Care Additional Instructions: Your testing in the emergency room for the most part seems reassuring. I think it would be reasonable for you to take a course of antibiotics in case there is some degree of infection in the toenail. Since you do not think that you has a history of a penicillin allergy I have prescribed an antibiotic which is amoxicillin/clavulanate (Augmentin). This antibiotic is in the penicillin family. My hope is that you will not have any adverse reaction. Otherwise please use the open toed shoe provided when walking. Keep the foot elevated often. Acetaminophen as needed for pain. You has been provided with the contact information for the podiatry office. Please call to set up an appointment for follow up. Otherwise follow up with your regular doctor. Return to the emergency room if you feel significantly worse at any time. Prescriptions: New acetaminophen 500 mg capsule 1,000 mg PO Q8H PRN (Reason: fever or pain) Qty: 14 0RF amoxicillin-pot clavulanate 875-125 mg tablet 1 tab PO BID Qty: 16 0RF No Action hydrocodone-acetaminophen 5-325 mg tablet 1 tab PO Q8H PRN (Reason: pain) Qty: 15 0RF Rx Instructions: Partial Fill upon patient request. omeprazole 40 mg capsule,delayed release(DR/EC) 40 mg PO DAILY Qty: 90 1RF docusate sodium 100 mg capsule 100 mg PO DAILY Qty: 90 1RF sennosides [senna] 8.6 mg tablet 17.2 mg PO BEDTIME PRN (Reason: for constipation) 90 Days Qty: 180 1RF amitriptyline 50 mg tablet 100 mg PO BEDTIME 90 Days Qty: 180 0RF memantine 5 mg tablet 5 mg PO BID Qty: 180 0RF metoprolol tartrate 25 mg tablet 1 tab PO BID acetaminophen [Tylenol Arthritis Pain] 650 mg tablet extended release 650 mg PO Q8H PRN (Reason: pain ) Qty: 30 0RF magnesium oxide 400 mg (241.3 mg magnesium) tablet 400 mg PO QAM furosemide 20 mg tablet 20 mg PO DAILY lisinopril 40 mg tablet 40 mg PO DAILY loratadine 10 mg tablet 10 mg PO DAILY duloxetine 20 mg capsule,delayed release(DR/EC) 20 mg PO DAILY Xarelto 2.5 mg tablet PO lidocaine [Lidocaine Pain Relief] 4 % adhesive patch,medicated 1 patch topical DAILY PRN (Reason: pain) Qty: 10 0RF atorvastatin 80 mg tablet 80 mg PO DAILY aspirin [Adult Low Dose Aspirin] 81 mg tablet,delayed release (DR/EC) 81 mg PO DAILY sertraline 50 mg tablet 50 mg PO DAILY pilocarpine HCl 5 mg tablet 5 mg PO TID Jardiance 10 mg tablet 10 mg PO DAILY metformin 500 mg tablet extended release 24 hr 1,000 mg PO BID ferrous gluconate 324 mg (38 mg iron) tablet 324 mg PO QAM lidocaine 5 % adhesive patch,medicated 1 patch topical DAILY Qty: 30 0RF Rx Instructions: leave on most painful area for up to 12 hrs Linzess 145 mcg capsule 145 mcg PO QAM 30 Days Qty: 30 3RF hydroxyzine HCl 25 mg tablet 25 mg PO BID PRN gabapentin 600 mg tablet 600 mg PO QID 90 Days Qty: 360 1RF trazodone 100 mg tablet 100 mg PO BEDTIME 90 Days Qty: 90 1RF Referrals: [facility] Podiatry [Provider Group, Podiatry] Shawna Gamble MD [Primary Care Provider, Internal Medicine] Interventions: ED Discharge Assessment Last Done: 04/06/25 16:44 Discharge Date/Time: 04/06/25 16:44 Print Language: Finnish
[2025-04-06 13:25] LABS: MANUAL DIFF FLAG NO
[2025-04-06 13:27] LABS: Appearance Urine Clear; Glucose Urine UA >=1000 mg/dL (Negative); PH 8.5 (5.0-9.0); Specific Gravity - Urine 1.015 (1.005-1.025); UMIC TRIGGER UACC YES
[2025-04-06 13:30] LABS: Hematocrit 37.3 % (37.0-47.0); Hemoglobin 11.8 g/dl (12.0-16.0); Imm Gran Abs Auto 0.05 X10*3/uL (0.00-0.03); Imm Gran Pct Auto 0.4 % (0.0-0.4); Lymphocytes Absolute Auto 1.7 X10*3/uL (1.2-4.9); Mean Corpuscular HGB Conc 31.6 g/dl (31.0-35.0); Mean Corpuscular Hemoglobin 27.6 pg (27.0-33.0); Mean Corpuscular Volume 87.1 fL (80.0-98.0); NRBC Abs Auto 0.000 X10*3/uL (0.0-0.012); NRBC Pct Auto 0.0 /100WBC (0.0-0.2); Platelet Count 291 X10*3/uL (160-400); Red Blood Count 4.28 X10*6/uL (4.20-5.50); White Blood Count 13.9 X10*3/uL (4.8-10.8)
[2025-04-06 13:36] LABS: UACC Culture Trigger YES
[2025-04-06 13:44] LABS: Uric Acid 4.3 mg/dL (2.4-5.7)
[2025-04-06 13:45] LABS: Alanine Aminotransferase 37 U/L (0-31); Albumin Level 4.7 g/dL (3.5-5.0); Alkaline Phosphatase 169 U/L (39-117); Anion Gap 15 (12-20); Aspartate Amino Transferase 49 U/L (5-31); Blood Urea Nitrogen 17 mg/dL (9-16); Calcium 10.0 mg/dL (8.4-10.2); Carbon Dioxide 28 mmol/L (22-29); Chloride 98 mmol/L (96-108); Creatinine Clr Calc Pharmacy 45.8; Estimated Glomerular Filt Rate 59; Potassium 4.6 mmol/L (3.3-5.1); Sodium 136 mmol/L (135-145); Total Protein 8.0 g/dL (6.5-8.0)
--- NOTE | 2025-04-06 14:01 | ECG_ITS ---
Test Reason : chest pain Blood Pressure : */* mmHG Vent. Rate : 75 BPM Atrial Rate : 75 BPM P-R Int : 182 ms QRS Dur : 92 ms QT Int : 382 ms P-R-T Axes : 40 31 35 degrees QTcB Int : 426 ms Normal sinus rhythm with sinus arrhythmia Normal ECG When compared with ECG of 27-Feb-2025 18:08, Nonspecific T wave abnormality no longer evident in Anterior leads Referred By: Generic ED Physician Electronically Signed By: MOISES REEVES
[2025-04-06 14:11] VITALS: BP 158/79; PULSE 77; RESP 18; TEMP 36.7; O2SAT 100
--- NOTE | 2025-04-06 14:21 | PC.NURSE ---
pt is alert and oriented, skin appropriate for ethnicity, respirations even and unlabored, pt is reporting left foot/great toe pain for a week no injury/fall, the nail bed does have discoloration, redness to to the great toe and some swelling, pain at 9/10, pt is reporting chest pain when she was being brought to the bed, ekg ordered and put on the monitor, vs stable and ns on the monitor
--- OUTSIDE RECORDS SUMMARY | 2025-04-06 14:28 | XMS_ITS | Encounter Summary ---
Author Organization [employer] Address [address] [place] [address] [address] [place] [address] Care Team Providers Care Sign Language Teacher Name Role Phone Shawna Gamble MD Primary Care Provider [phone] Reason for Visit * Reason Comments Med Change Request Encounter Details Date Type Department Care Team ([facility] st Contact Info) Description 03/14/2025 Refill [facility] [address] [place] [address] Shawna Gamble MD [address] [place] [address] Social History Tobacco Use Types Packs/Day Years [...] documented as of this encounter Care Teams Sign Language Teacher Relationship Specialty Start Date End Date Shawna Gamble MD [address] [place] [address] PCP - General Family Medicine 05/13/22 [employer] 01/22/25 documented as of this encounter
--- OUTSIDE RECORDS SUMMARY | 2025-04-06 14:28 | XMS_ITS | Patient Health Record ---
Author Organization [facility] Address [address] [place] [address] Care Team Providers Care Orchestra Musician Name Role Phone Anish Santiago MD, Arnulfo Primary Care Provide Chavez Gutierrez Jr Unavailable [phone] Allergies Allergen (clinical drug ingredient) Drug/Non Drug Allergy documented on EMR Reaction Allergy Type Onset Date Status sulfamethoxazole / trimethoprim Bactrim Unknown Drug Allergy Active morphine Morphine Sulfate Unknown Drug Allergy Active acetaminophen / oxycodone Percocet Unknown Drug Allergy Active Cortisone Unknown Drug Allergy Active Penicillin Unknown Drug Allergy Active Reason For Referral No Information Medications Medication SIG (Take, Route, Frequency, Duration) Notes Start Date End Date Status Metoprolol Tartrate 50mg Active Gabapentin 600mg Act elvis Benicar Active Aspir-81 81mg Active hydroCHLOROthiazide 25mg Active Zolpidem Tartrate 10mg Active Gas Relief Active PriLOSEC OTC 20 MG Tablet Delayed Release 1 tablet Orally Once a day; Duration: 28 Active HumaLOG KwikPen Acti ve Lantus SoloStar Acti ve Dicyclomine HCl 20 MG Tablet 1 tablet Or ally Four times a day; Duration: 30 day(s) 04/05/2013 Active Social History Social History Additional Details Category Social Info Options Details Miscellaneous: Marital status: Occupation: unemployed Problems Problem Type SNOMED Code ICD Code Onset Dates Problem Status W/U Status Risk Notes Problem Esophageal reflux (266775532) Esophageal reflux (530.81) Active confirmed Problem Epigastric pain (77410377) Abdominal pain, epigastric (789.06) Active confirmed Plan Of Treatment No Information Insurance Providers Payer Name Payer Address Payer Phone Subscriber Number Group Number Insured Name Patient Relationship to Insured Coverage Start Date Coverage End Date [facility] [address] [address] [place], [place] [id number] [phone] [id number] ABHIJEET TILLEY Self - patient is the insured Medical (General) History Medical History History ICD Code colonoscopy 12-09-2005 Diabetes mellitus type 2 Neuropathy Elevated cholesterol Hypertension Surgical History Surgery Date(Month/Year) Bilateral carpal tunnel release Cholecystectomy
--- OUTSIDE RECORDS SUMMARY | 2025-04-06 14:28 | XMS_ITS | Encounter Summary ---
Author Organization [employer] Address [address] [facility] [address] [place] [address] Care Team Providers Care Fish Trapper Name Role Phone Shawna Gamble MD Primary Care Provider Encounter Details Date Type Department Care Team ([facility] st Contact Info) Description 11/07/2024 Orders Only [facility] MEDICINE [address] [place], [place] [id number] Shawna Gamble MD [address] [place] [address] Hypomagnesemia (Primary Dx) Social History Tobacco Use [...] EDT) Magnesium 1.7 1.6 - 2.6 mg/dL [facility] Blood Venous blood specimen / Unknown 12/28/2024 3:06 PM EDT 12/28/2024 3:06 PM EDT us Shawna Gamble MD LAB BLOOD ORDERABLES Final Res ult [facility] [address] [place] [phone] documented in this encounter Visit Diagnoses Diagnosis Hypomagnesemia- Primary Disorders of magnesium metabolism documented in this encounter Additional Health Concerns Assessment Noted Time PHQ-9 Depression Total Score: 6 10/19/19 25 11:41 AM EDT documented as of this encounter Care Teams Fish Trapper Relationship Specialty Start Date End Date Shawna Gamble MD [address] [place] [id number] PCP - General Family Medicine 05/13/22 [employer] 01/22/25 documented as of this encounter
--- OUTSIDE RECORDS SUMMARY | 2025-04-06 14:28 | XMS_ITS | Clinical Summary ---
Author Organization [facility] Address [address] [address] Phone Care Team Providers Care Day Care Center Director Name Role Phone Shawna Gamble MD [...] the rectum 3 Active Cholecalciferol 250 MCG (19305 UT) capsule TAKE 1 CAPSULE BY MOUTH [...] time each day For 30 days Active Magnesium 400 MG tabletIndication s:Hypomagnesemia Take 400 mg by mouth 1 (one) time each day 30 tablet 11 4 Active Active Problems Problem Noted Date Diagnosed Date Stage 3a chronic kidney disease 02/16/2024 Other iron deficiency anemia 02/16/2024 Chronic kidney disease, stage 2 (mild) 4 Underweight 03/11/2023 03/11/2023 History of coronary artery bypass grafting 12/1503/11/2023 Overview (03/11/2023): 07/2022 at [facility] Chest pain on breathing 12/04/2022 03/11/20 Overview [...] Acute sinusitis 04/27/2018 03/11/2023 Gastritis 04/27/2018 03/11/2023 Pain of shoulder region 04/27/2018 Overview (03/11/2023): Last Assessment & Plan: Lidocaine [...] Insurance [facility] ([id number]) [place] [id number] [facility] ([id number]) [place] [id number] Care Teams Day Care Center Director Relationship Specialty Start Date End Date Shawna Gamble MD [address] [place] [id number] PCP - General Sprinkler Installer 02/16/24
--- OUTSIDE RECORDS SUMMARY | 2025-04-06 14:28 | XMS_ITS | Clinical Summary ---
Author Organization [facility] Address [address] [place] [address] Care Team Providers Care Admissions Specialist Name Role Phone Unavailable Primary Care [...]
--- OUTSIDE RECORDS SUMMARY | 2025-04-06 14:28 | XMS_ITS | Encounter Summary ---
Author Organization [employer] Address [address] [place] [address] [address] [place] [address] Care Team Providers Care Ceramic Design Engineer Name Role Phone Shawna Gamble MD Primary Care Provider [phone] Reason for Visit * Reason Onset Date Comments requesting script 05/13/2022 Encounter Details Date Type Department Care Team ([facility] st Contact Info) Description 05/13/2022 Telephone [facility] MEDICINE [address] [place] [address] Makenna Trinidad MD requesting script Social History [...] PM EST TC place to pt at [phone] via [employer] Chief Science Officer. Pt states she's in need of body [...] send to medline Please contact pt at [phone] documented in this encounter Plan of Treatment Not on file documented as of this encounter Visit Diagnoses Not on filedocumented in this encounter Care Teams Ceramic Design Engineer Relationship Specialty Start Date End Date Shawna Gamble MD [address] [place] [address] PCP - General Family Medicine 05/13/22 [employer] 01/22/25 documented as of this encounter
--- OUTSIDE RECORDS SUMMARY | 2025-04-06 14:28 | XMS_ITS | Encounter Summary ---
Author Organization [employer] Address [address] [facility] [address] [place] [address] Care Team Providers Care Information Delivery Analyst Name Role Phone Shawna Gamble MD Primary Care Provider [phone] Encounter Details Date Type Department Care Team ([facility] st Contact Info) Description 03/09/2025 Orders Only [facility] MEDICINE [address] [place] [address] Shawna Gamble MD [address] [place] [address] Social History Tobacco Use Types Packs/Day Years [...] documented as of this encounter Care Teams Information Delivery Analyst Relationship Specialty Start Date End Date Shawna Gamble MD [address] [place] [address] PCP - General Family Medicine 05/13/22 [employer] 01/22/25 documented as of this encounter
--- OUTSIDE RECORDS SUMMARY | 2025-04-06 14:29 | XMS_ITS | Encounter Summary ---
Author Organization [employer] Address [address] [place] [address] [address] [place] [address] Care Team Providers Care Chairman & Co Founder Name Role Phone Shawna Gamble MD Primary Care Provider [phone] Reason for Visit * Reason Onset Date Comments Durable Medical Equipment 07/03/2022 Encounter Details Date Type Department Care Team ([facility] st Contact Info) Description 07/03/2022 Telephone [facility] MEDICINE [address] [place], [place] [phone] Shawna Gamble MD [address] [place] [address] Durable Medical Equipment Social History Tobacco Use [...] 07/15/2022 2:22 PM EST Form received from [employer] for bed pads for signature * Telephone [...] on filedocumented in this encounter Care Teams Chairman & Co Founder Relationship Specialty Start Date End Date Shawna Gamble MD [address] [place] [address] PCP - General Family Medicine 05/13/22 [employer] 01/22/25 documented as of this encounter
--- OUTSIDE RECORDS SUMMARY | 2025-04-06 14:29 | XMS_ITS | Encounter Summary ---
Author Organization [employer] Address [address] [place] [address] 7[address] [place] [address] Care Team Providers Care Religious Educator Name Role Phone Makenna Trinidad MD Primary Care Provider Shawna Hand MD Primary Care Provider [phone] Encounter Details Date Type Department Care Team (Late st Contact Info) Description 04/20/2022 Abstract [facility] ADULT [facility]AL [address] [place] [address] Dental, Provider, DDS Social History Tobacco Use [...] on filedocumented in this encounter Care Teams Religious Educator Relationship Specialty Start Date End Date Makenna Trinidad MD PCP - General Family Medicine 03/24/19 05/12/22 Shawna Gamble MD [address] [place] [id number] PCP - General Family Medicine 05/13/22 [employer] 01/22/25 documented as of this encounter
--- OUTSIDE RECORDS SUMMARY | 2025-04-06 14:29 | XMS_ITS | Encounter Summary ---
Author Organization [employer] Address [address] [facility] 7t [place] [address] Care Team Providers Care Custodial Officer Name Role Phone Shawna Gamble MD Primary Care Provider [phone] Reason for Visit * Reason Comments Med Change Request Encounter Details Date Type Department Care Team ([facility] st Contact Info) Description 02/10/[address] [facility] MEDICINE [address] [place] [address] Anisha Mc MD [address] [place] [address] Social History Tobacco Use Types Packs/Day Years [...] documented as of this encounter Care Teams Custodial Officer Relationship Specialty Start Date End Date Shawna Gamble MD [address] [place] [id number] PCP - General Family Medicine 05/13/22 [employer] 01/22/25 documented as of this encounter
--- OUTSIDE RECORDS SUMMARY | 2025-04-06 14:29 | XMS_ITS | Encounter Summary ---
Author Organization [employer] Address [address] [facility] 7t [place] [address] Care Team Providers Care Plate Shop Helper Name Role Phone Shawna Gamble MD Primary Care Provider [phone] Encounter Details Date Type Department Care Team (Latest Contact Info) Description 04/03/2025 Travel Social History Tobacco Use Types Packs/Day [...] AM EDT documented as of this encounter Functional Status * Over the last 2 weeks, how often have you been bothered by any of the following problems? Question Answer Date of Assessment Author Feeling nervous, anxious, or on edge 0 04/03/2025 3:14 PM Mimi Hill MA Not being able to stop or control worrying 0 04/03/2025 3:14 PM Mimi Hill MA Worrying too much about different things 0 04/03/2025 3:14 PM Mimi Hill MA Trouble relaxing 0 04/03/2025 3:14 PM EST Mimi Wen MA Being so restless that it is hard to sit still 0 04/03/2025 3:14 PM Mimi Hill MA Becoming easily annoyed or irritable 0 04/03/2025 3:14 PM Mimi Hill MA Feeling afraid as if somethi ng awful might happen 0 04/03/2025 3:14 PM Mimi Hill MA RONEN-7 Total Score 0 04/03/2025 3:14 PM Mimi Hill MA documented as of this encounter Plan of Treatment Not on file documented as of this encounter Goals Goal [...] Plan Weekly blood pressure task No Zuleyka Jordan, BENNIE Patient has chronic kidney disease Care Plan Patient has chronic kidney disease No Zuleyka Jordan RN Patient has chronic kidney disease Care Plan Patient has chronic kidney disease No Zuleyka Jordan RN documented as of this encounter Visit Diagnoses Not on filedocumented in this encounter Additional Health Concerns Active [...] 04/03/2025 Patient has chronic kidney disease 04/03/2025 Assessment Noted Time PHQ-9 Depression Total Score: 6 10/19/19 25 11:41 AM EDT documented as of this encounter Care Teams Plate Shop Helper Relationship Specialty Start Date End Date Shawna Gamble MD [address] [place] [id number] PCP - General Family Medicine 05/13/22 [employer] 01/22/25 documented as of this encounter
--- OUTSIDE RECORDS SUMMARY | 2025-04-06 14:29 | XMS_ITS | Encounter Summary ---
Author Organization [employer] Address [address] [place] [address] [address] [place] [address] Care Team Providers Care Multi Care Technician Name Role Phone Shawna Gamble MD Primary Care Provider [phone] Reason for Visit * Reason Onset Date Comments VNA Request 04/03/2025 Encounter Details Date Type Department Care Team ([facility] Contact Info) Description 04/03/2025 Telephone [facility] MEDICINE [address] [place] [address] Shawna Gamble MD [address] [place] [address] VNA Request Social History Tobacco Use Types Packs/Day Years [...] [place] Trouble relaxing 0 04/03/2025 3:14 PM Mimi Rader MA Being so restless that it is hard to sit still 0 04/03/2025 3:14 PM Mimi Hill MA Becoming easily annoyed or irritable 0 04/03/2025 3:14 PM Mimi Hill MA Feeling afraid as if somethi ng awful might happen 0 04/03/2025 3:14 PM Mimi Hill MA RONEN-7 Total Score 0 04/03/2025 3:14 PM Mimi Hill MA documented as of this encounter Miscellaneous Notes * Telephone Encounter - Zuleyka Jordan RN - 04/05/2025 12:53 PM EST VNA order with supporting documents given to JEMAL Rushing liasion on 04/04/25. Spoke with Berta 04/05/25 and pt already established with VNA and PT services. Message forwarded to provider as an FYI. * Telephone Encounter - Zuleyka Jordan RN - 04/03/2025 3:45 PM EST VNA order with supporting documents generated and requesting provider signed order. Team nurses to give to JEMAL Rushing liaison for review. ----- Message from Amy Camara sent at 04/03/2025 2:58 PM EST ----- Please faciltiate VNA for foot infection and type II DIABETES MELLITUS thank you documented in this encounter Plan of Treatment [...] Weekly blood pressure task No Zuleyka Jordan, RN Weekly blood pressure task Care Plan Weekly blood pressure task No Zuleyka Jordan, RN Patient has chronic kidney disease Care Plan Patient has chronic kidney disease No Zuleyka Jordan, RN Patient has chronic kidney disease Care Plan Patient has chronic kidney disease No Zuleyka Jordan, RN Weekly blood pressure task Care Plan Weekly blood pressure task No Pinky Santiago Weekly blood pressure task Care Plan Weekly blood pressure task No Pinky Santiago Patient has chronic kidney disease Care Plan Patient has chronic kidney disease No Pinky Santiago Patient has chronic kidney disease Care Plan Patient has chronic kidney disease No Pinky Santiago Weekly blood pressure task Care Plan Weekly blood pressure task No Luis Manuel Booth Weekly blood pressure task Care Plan Weekly blood pressure task No Luis Manuel Booth Patient has chronic kidney disease Care Plan Patient has chronic kidney disease No Luis Manuel Booth Patient has chronic kidney disease Care Plan Patient has chronic kidney disease No Luis Manuel Booth documented as of this encounter Visit Diagnoses [...] 04/04/2025 Patient has chronic kidney disease 04/04/2025 Weekly blood pressure task 04/06/2025 Weekly blood pressure task 04/06/2025 Patient has chronic kidney disease 04/06/2025 Patient has chronic kidney disease 04/06/2025 Assessment Noted Time PHQ-9 Depression Total Score: 6 10/19/19 11:41 AM EDT documented as of this encounter Care Teams Multi Care Technician Relationship Specialty Start Date End Date Shawna Gamble MD [address] [place] [address] PCP - General Family Medicine 05/13/22 [employer] 01/22/25 documented as of this encounter
--- OUTSIDE RECORDS SUMMARY | 2025-04-06 14:29 | XMS_ITS | Encounter Summary ---
Author Organization [facility] Address [address] [facility] [address] [place] [address] Phone Care Team Providers Care Livestock Counter Name Role Phone Reena Marinelli Primary Care Provider [phone] Encounter Details Date Type Department Care Team (Late st Contact Info) Description 08/24/2019 Ancillary Orders [facility] [address] [place] [address] [place] [address] Reena Marinelli PA [address] [place] [address] [email or web address] Social History Tobacco Use Types Packs/Day [...] Palpitations documented in this encounter Care Teams Livestock Counter Relationship Specialty Start Date End Date Reena Marinelli PA [address] [place] [address] [email or web address] PCP - General Reservation Agent 08/18/19 documented as of this encounter Additional Source Comments The information contained in this document represents components of the legal health record. It is not the complete legal health record.[facility]
--- OUTSIDE RECORDS SUMMARY | 2025-04-06 14:29 | XMS_ITS | Data Portability ---
Author Organization [facility], Main Office Address [address] [place] [address] Care Team Providers Care Fresh Work Inspector Name Role Phone DELMIS HEARD 2ND FLOOR OTHER [phone] ROSIBEL SCHOFIELD Primary Care Provider Assessment No [...] goals are met, likely 7-10 days Total fcm-cuam-qs-face time spent reviewing records today was 32 minutes/2 units. [email or web address] Not available 08/01/2022 19:41:07 Reason for Referral None Reported. Problems Name Problem SNOMED Code Status Onset Date Resolution Date Notes Provider Name and Address Organization Details Recorded Time Coronary arterioscle rosis 45304875 Active 2022 YOCASTA CHAMBERS PA-C [address] , [address], [place], [address], [facility] 3 19:22:01 Essential hypertensio n 47138755 Active 2022 YOCASTA CHAMBERS PA-C [address], [address], [place], [address], [facility] 3 19:22:06 Dyslipidemi a 800099778 Active 2022 YOCASTA CHAMBERS, PA-C [address], [address], [place], [address], [facility] 3 19:22:13 Type 2 diabetes mellitus with peripheral angiopathy 885206687 Active 2022 ISAIAS DAVIS-C [address], [address], [place], [address], [facility] 3 19:22:25 Peripheral neuropathy due to type 2 diabetes mellitus 8684191571629 Active 2022 ISAIAS DAVIS-C [address], [address], [place], [address], [facility] 3 19:22:33 Unintention al weight loss 377173729 Active 2022 ISAIAS DAVIS-C [address], [address], [place], [address], [facility] 3 19:22:40 Orthostatic hypotension 01122618 Active 2022 ISAIAS DAVIS-C [address], [address], [place], [address], [facility] 3 19:23:00 Hyponatremi a 42531941 Active 2022 ISAIAS DAVIS-C [address], [address], [place], [address], [facility] 3 19:23:09 Anemia 056447424 Active 2022 ISAIAS DAVIS-C [address], [address], [place], [address], [facility] 3 19:23:18 Chronic constipatio n 499902151 Active 2022 ISAIAS DAVIS-C [address], [address], [place], [address], [facility] 3 19:23:25 Seasonal allergy 256515139 Active 2022 ISAIAS DAVIS-C [address], [address], [place], [address], [facility] 3 19:23:32 Stenosis of celiac artery 9762949666236 9101 Active 2022 YOCASTA CHAMBERS PA-C [address], [address], [place], [address], [facility] 3 19:23:44 Abdominal pain 58340238 Active 2022 YOCASTA CHAMBERS PA-C [address], [address], [place], [address], [facility] 3 19:24:04 Vitamin D deficiency 28630633 Active 2022 YOCASTA CHAMBERS PA-C [address], [address], [place], [address], [facility] 3 19:24:12 Insomnia co-occurren t and due to medical condition 3320184897135 5 Active 2022 YOCASTA CHAMBERS PA-C [address], [address], [place], [address], [facility] 3 19:24:25 Hypomagnese arlen 632157425 Active 2022 YOCASTA CHAMBERS PA-C [address], [address], [place], [address], [facility] 3 19:30:39 Intermitten t allergic asthma 7411755247152 9104 Active 2022 YOCASTA CHAMBERS PA-C [address], [address], [place], [address], [facility] 3 19:31:17 Coronary artery bypass grafts x 4 Active 2022 YOCASTA CHAMBERS PA-C [address], [address], [place], [address], [facility] 3 19:31:29 Type 2 diabetes mellitus 57171392 Active 2022 Nicci Womack MD [address], [address], [place], [address], [facility] 3 16:26:34 Asthenia 17895279 Active 2022 Nicci Womack MD [address], [address], [place], [address], [facility] 3 16:37:01 Problem Notes None recorded. Medical Equipment None Reported. Allergies Allergen ID Allergen Name Allergen Category Reaction Reaction Severity Criticality Documentation Date Start Date Code Code System Note Provider Name and Address Organization Details Recorded Time 64138 Bactrim medicatio n hives Not available Not available 08/01/2022 36440 9 RxNorm YOCASTA CHAMBERSJEREMI [address] , [address], [place], [address], [facility] 3 17:55:34 77973 oxycodone medicatio n dyspnea itching Not available Not available Not available 08/01/2022 7804 RxNorm YOCASTA CHAMBERSJEREMI [address] [facility], [address], [place], [address], [facility] 3 17:56:03 34951 codeine medicatio n Not available Not available Not available 08/01/2022 2670 RxNorm amxie ty YOCASTA CHAMBERSJEREMI [address] [facility], [address], [place], [address], [facility] 3 17:56:14 36268 cortisone medicatio n itching Not available Not available 08/01/2022 2878 RxNorm YOCASTA CHAMBERSJEREMI [address] [facility], [address], [place], [address], [facility] 3 17:56:28 24904 doxycycli ne Not available itching Not available Not available 08/01/2022 3640 RxNorm YOCASTA JEREMI CHAMBERS [address], [place], [address], [facility] 3 17:56:41 95674 morphine medicatio n itching Not available Not available 08/01/2022 7052 RxNorm YOCASTA CHAMBERSISAIAS-C [address], [address], [place], [address], [facility] 3 17:56:51 88099 Product containin g penicilli n (product) medicatio n rash Not available Not available 08/01/2022 92949 8001 SNOMED YOCASTA CHAMBERS PA-C [address] [facility], [address], [place], [address], [facility] 17:57:04 93315 tramadol medicatio n Not available Not available Not available 08/01/2022 42133 RxNorm anxie ty YOCASTA CHAMBERS PA-C [address] [facility], [address], [place], [address], [facility] 17:57:18 Vitals Date Recorded Body height Body mass index (BMI) Body weight Heart rate Respiratory rate Body temperature Oxygen saturation Systolic And Diastolic Provider Name and Address Organization Details Last Updated DateTime 3 154.94 cm 25.5 kg/m2 18244.9 7 g 73 /min 17 /min 98.2 [degF] 100 % 146/59 mm[Hg] YOCASTA CHAMBERS PA-C [address] [facility], [address], [place], [address], [facility] 17:46:47 Date Recorded Body height Heart rate Respiratory rate Body temperature Oxygen saturation Systolic And Diastolic Provider Name and Address Organization Details Last Updated DateTime 3 154.94 cm 82 /min 16 /min 98.1 [degF] 97 % 127/78 mm[Hg] RAYMUNDO KIRK NP [address] [facility] [address], [address], [place], [address], [facility] 11:57:47 Date Recorded Body height Heart rate Respiratory rate Body temperature Oxygen saturation Systolic And Diastolic Provider Name and Address Organization Details Last Updated DateTime 3 154.94 cm 80 /min 16 /min 98.4 [degF] 96 % 133/70 mm[Hg] RAYMUNDO KIRK NP [address] [facility], [address], [place], [address], [facility] 14:33:50 Date Recorded Body height Body mass index (BMI) Body weight Heart rate Respiratory rate Body temperature Oxygen saturation Systolic And Diastolic Provider Name and Address Organization Details Last Updated DateTime 3 154.94 cm 23.1 kg/m2 08549.2 7 g 84 /min 18 /min 97.9 [degF] 97 % 116/62 mm[Hg] Nicci Womack MD [address] [facility], [address], [place], [address], [facility] 3 16:02:43 Date Recorded Body height Heart rate Respiratory rate Body temperature Oxygen saturation Body mass index (BMI) Body weight Systolic And Diastolic Provider Name and Address Organization Details Last Updated DateTime 3 154.94 cm 88 /min 16 /min 97.3 [degF] 98 % 22.7 kg/m2 04817.5 2 g 131/78 mm[Hg] RAYMUNDO KIRK NP [address] [facility], [address], [place], [address], [facility] 12:42:06 Social History Question Answer Notes LastModified by Organizat ion Details LastModified Time Tobacco Smoking Status Never Smoker YOCASTA CHAMBERS PA-C [address] [facility], [facility] [address], [place], [address], [facility] 08/01/2022 19:32:55 Do You Have An Advance Directive? Yes [email or web address] Information not available 08/03/2022 What Is Your Code Status? Full Code [email or web address] Information not available 08/01/2022 Where Do You Live? [facility] Bedroom On 2nd Floor, Railing Only On Left Information not available 08/07/2022 Legal Guardian? 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 08/01/2022 [email or web address] Information not available 08/01/2022 Do You Have An Out Of Hospital DNR? No [email or web address] Information not available 08/01/2022 Has Tobacco Cessation Counseling Been Provided? No N/A As Pt Is A Non-smoker Information not available 08/07/2022 Sex: Unknown Functional Status Question Answer Note LastModified by Organizat ion Details LastModified Time Do you use any illicit or recreational drugs? No [email or web address] Information not available 08/01/2022 Do you or have you ever used any other forms of tobacco or nicotine? No [email or web address] Information not available 08/01/2022 What is your level of alcohol consumption? None Information not available 08/01/2022 Mental Status None recorded. Family History Relationship Description Onset Age of this Age Resolved Age Notes LastModified by Organization Details LastModified Time Father Coronary arterioscler osis 75 [email or web address] Not available 2022 19:18:27 Mother Coronary arterioscler osis 72 [email or web address] Not available 2022 19:18:27 Medical History No medical history recorded. Gynecological HistoryNo gynecological history recorded. Obstetrics History GPAL:G 0 P 0 0 0 0 Immunizations Vaccine Type Date Status Note Provider Nam e and Address Organization Details Recorded Time SARS-COV-2 (COVID-19) vaccine, UNSPECIFIED 1 completed Selma Hernandez [facility] 07/31/2022 16:13:00 SARS-COV-2 (COVID-19) vaccine, UNSPECIFIED 1 completed Selma Hernandez [facility] 07/31/2022 16:13:09 Influenza, adjuvanted, quadrivalent, PF 2 completed Kandi Stone [facility] 06/04/2023 13:05:32 Hep B, unspecified formulation 8 completed Selma Hernandez [facility] 07/21/2023 12:52:12 Tdap 8 completed Selma Hernandez [facility] 07/21/2023 12:52:31 Td(adult) unspecified formulation 5 completed Selma Hernandez [facility] 07/21/2023 12:52:50 Td(adult) unspecified formulation 0 completed Selma Hernandez [facility] 07/21/2023 12:52:59 Pneumococcal conjugate PCV 13 9 completed Selma Hernandez [facility] 07/21/2023 12:53:54 pneumococcal polysaccharide PPV23 2 completed Selma Hernandez [facility] 07/21/2023 12:54:22 pneumococcal polysaccharide PPV23 1 completed Selma Hernandez [facility] 07/21/2023 12:54:30 influenza, unspecified formulation 3 completed Selma Hernandez [facility] 07/21/2023 12:54:54 zoster, unspecified formulation 6 completed Selma Hernandez [facility] 07/21/2023 12:55:18 zoster, unspecified formulation 0 completed Selma Hernandez [facility] 07/21/2023 12:55:31 Past Encounters Encounter ID Performer Location Encounter Start Date Encounter Closed Date Diagnosis/Indication Diagnosis SNOMED-CT Code Diagnosis ICD10 Code Diagnosis IMO Codes Diagnosis Note [id number] JEREMI DAVIS [address] [place] [address] 08/01/2022 17:43:19 08/04/2022 08:34:27 Coronary arteriosclerosis 03603536 I25.10 now s/p 4-vessel CABGASA, BB, statin, PlavixMoni tor surgical incision sites - presently no evidence of infectionP t HAS CT surg f/u with Dr. Andre Pierre 08/10/22 at [facility] (listed as being at 0130 so either it's supposed to be 1130 or 1330 - need to clarify appointmen t time) [phone] 50Pt NEEDS cards f/u with Dr. Estuardo Rodríguez in 2-4 weeks [phone] 84Pt needs f/u cardiac rehab at [facility] after d/c - [id number] tive spirometer at bedside Abdominal pain 34004239 R10.9 postprandi alHas meds in placeattri buted to celiac artery stenosis but does NOT have mesenteric artery stenosis Essential hypertension 50624706 I10 Monitor BPs and adjust meds prn Dyslipidemia 959978394 E 78.5 statin Peripheral neuropathy due to type 2 diabetes mellitus 3459422769 107 E11.42 monitor sugars and adjust meds prnOff MADY for renal protection - was d/c'd during antecedent hospitaliz ationTight glycemic control necessary to promote wound healingon duloxetine with prn wayne Intermitte nt allergic asthma 1912996571 7088497 J45.20 prn Albuterol- consider adding spacer to maximize med delivery Insomnia c o-occurrent and due to medical condition 5364309465 9105 G47.01 Trazodonef /u prn Hypomagnesemia 726741510 E83.42 supplement d/c'd PTAupdate level with next lab draw Chronic constipation 236 898610 K59.09 scheduled and prn bowel meds Anemia 603766588 D64.9 acute-on-c hronic post-opdoe s not appear she required a transfusio nmonitor CBC Seasonal allergy 4741918 04 J30.2 Claritin (weakest in that class - consider Maricel if needs something stronger) Stenosis o f celiac artery 5045337944 5246492 I77.4 seen by vascular surg-f/u prn Unintentio nal weight loss 881645729 R63.4 RD consultMon itor weights Vitamin D deficiency 347 46895 E55.9 repletingo utpatient f/u with PCP Hyponatremia 25674578 E8 7.1 had w/u prior to admitfollo w divalents Orthostati c hypotension 33132350 I95.1 BB decreasedf /u prn At moderat e risk for fall 5275838400 02991471 Z91.89 PT/OT [id number] JEREMIAH MCINTOSH ORQUIDEA [address] [place] [address] 08/03/2022 11:47:26 08/05/2022 17:19:50 Coronary arteriosclerosis 61309742 I25.10 now s/p 4-vessel CABGmetopr olol er 12.5 mg dailyasa 81 mg dailyatorv astatin 80 mg dailyplavi x 75 mg dailytylen ol 975 mg [id number] r surgical incision sites - presently no evidence of infectionP t HAS CT surg f/u with Dr. Andre Pierre 08/10/22 at [facility] (listed as being at 0130 so either it's supposed to be 1130 or 1330 - need to clarify appointmen t time) [phone] 50Pt NEEDS cards f/u with Dr. Estuardo Rodríguez in 2-4 weeks [phone] 84Pt needs f/u cardiac rehab at [facility] after d/c - [id number] tive spirometer at bedside Essential hypertension 11272300 I10 Monitor BPs and adjust meds prn Dyslipidemia 636856009 E 78.5 atorvastat in 80 mg daily Peripheral neuropathy due to type 2 diabetes mellitus 8446010202 107 E11.42 monitor sugars and adjust meds prnOff MADY for renal protection - was d/c'd during antecedent hospitaliz ationTight glycemic control necessary to promote wound healingdul oxatine 20 mg dailygabap entin 600 mg q6hr prn Intermitte nt allergic asthma 6400671110 8675956 J45.20 prn Albuterol- consider adding spacer to maximize med delivery Insomnia c o-occurrent and due to medical condition 8564445644 9105 G47.01 Trazodone 100 mg hsf/u prn Hypomagnesemia 075613103 E83.42 supplement d/c'd PTAupdate level with next lab draw Chronic constipation 236 736859 K59.09 senna 17.2 hscolace dailyprn bowel meds Anemia 859569446 D64.9 acute-on-c hronic post-opdoe s not appear she required a transfusio nmonitor CBC Seasonal allergy 0251100 04 J30.2 Claritin 10- mg prn Stenosis o f celiac artery 1305972729 9243253 I77.4 seen by vascular surg-f/u prn Unintentio nal weight loss 562654647 R63.4 RD consultMon itor weights Vitamin D deficiency 347 84618 E55.9 D3 1000 twice weeklyoutp atient f/u with PCP Hyponatremia 84145671 E8 7.1 had w/u prior to admitfollo w divalents Orthostati c hypotension 83364455 I95.1 BB decreasedf /u prn At moderat e risk for fall 9194309919 27963930 Z91.89 PT/OT Type 2 lou betes mellitus with peripheral angiopathy 060009929 E11.51 metformin 1000 mg bidlispro sliding scale bidpoc glucose bid [id number] JEREMIAH MCINTOSH ORQUIDEA [address] [place] [address] [place] [address] 08/05/2022 14:11:45 08/10/2022 14:23:48 Coronary arteriosclerosis 13704546 I25.10 now s/p 4-vessel CABGmetopr olol er 12.5 mg dailyasa 81 mg dailyatorv astatin 80 mg dailyplavi x 75 mg dailytylen ol 975 mg [id number] r surgical incision sites - presently no evidence of infectionP t HAS CT surg f/u with Dr. Andre Pierre 08/10/22 at [facility] (listed as being at 0130 so either it's supposed to be 1130 or 1330 - need to clarify appointmen t time) [phone] 50Pt NEEDS cards f/u with Dr. Estuardo Rodríguez in 2-4 weeks [phone] 84Pt needs f/u cardiac rehab at [facility] after d/c - 90776635 55 [id number] tive spirometer at bedside Peripheral neuropathy due to type 2 diabetes mellitus 9982547715 107 E11.42 monitor sugars and adjust meds prnOff MADY for renal protection - was d/c'd during antecedent hospitaliz ationTight glycemic control necessary to promote wound healingdul oxatine 20 mg dailygabap entin 600 mg q6hr prn [id number] Nicci Womack MD [address] [address] 08/07/2022 15:12:17 08/10/2022 14:43:19 Coronary arteriosclerosis 38674095 I25.10 S/P CABG x4, recovering well.Incis ions clean and dry and almost back to baseline function.C ontinue metoprolol ER 12.5 mg qd, ASA 81 mg qd, atorvastat in 80 mg qd, and plavix 75 mg qd (for 1 yr).Contin ue APAP 975 mg q 6 hrs scheduled for incisional pain.Salma nue I beau.F/U with Dr. Andre Pierre, CT surgery, 08/10/ at 1:30 PM, [phone] 50Pt needs cards f/u with Dr. Estuardo Rodríguez in 2-4 weeks [phone] 84Pt needs f/u cardiac rehab at [facility] after d/c - 534-25 55 x [phone] Essential hypertension 49946696 I10 Remains in good control on only metoprolol 12.5 mg.Isosorb kiet, lisinopril , and HCTZ were d/c'd inpt due to low BPs.Monito r BPs and adjust meds prn. Dyslipidemia 049412118 E 78.49 Continue atorvastat in 80 mg qd.Monitor labs as outpt. Intermitte nt allergic asthma 2457421306 5802083 J45.20 No current sxs.Contin ue albuterol 2 puffs q 6 hrs prn.Monito r resp. status. Insomnia c o-occurrent and due to medical condition 3787060160 9105 G47.01 Continue trazodone 100 mg qhsMonitor sleep patterns. Chronic constipation 236 998623 K59.09 Continue bowel meds as ordered.Mo nitor bowel function. Anemia 634786211 D64.89 Acute on chronic, from surgical blood loss.Remai toya stableMoni tor labs.Trans fuse for hgb <7 Seasonal allergy 9418154 04 J30.2 Continue loratadine 10 mg qd prnMonitor sxs. Stenosis o f celiac artery 1071966906 6142054 I77.4 F/U with vascular surg as planned Unintentio nal weight loss 552780976 R63.4 Reportedly lost 100# without trying.But remaining stable at this timeDietic nain consultMon itor weights Vitamin D deficiency 347 39822 E56.8 Continue D3 1000 IU twice weeklyMoni tor levels as outpt. Hyponatremia 49997096 E8 7.1 Resolved inpt.Monit or labs Type 2 lou betes mellitus 74248473 E11.21 Home sugars much improved since wt. [...] and pre-supper . Use SSI prn. Asthenia 23716630 R53.1 Was deconditio giovanni, but much improved.C ontklaudiaue PT/OT for strengthen ing, balance, gait training, safety and function.C ontinue fall precaution s.Monitor for safety.Helga n for d/c 08/11 Abdominal pain 52472728 R10.816 R11.0 Having trouble eating due to nausea and abd. pain.Will schedule carafate QID (AC and qhs) and Zofran 4 mg TID.Contin ue omeprazole 40 mg qd.Monitor sxs.Though t to possibly be mesenteric ischemia. [id number] JEREMIAH MCINTOSH [address] [place] [address] 08/10/2022 12:41:32 08/12/2022 14:50:55 Coronary arteriosclerosis 17940382 I25.10 now s/p 4-vessel CABGmetopr olol er 12.5 mg dailyasa 81 mg dailyatorv astatin 80 mg dailyplavi x 75 mg dailytylen ol 975 mg [id number] r surgical incision sites - presently no evidence of infectionP t HAS CT surg f/u with Dr. Andre Pierre 08/10/22 at [facility] (listed as being at 0130 so either it's supposed to be 1130 or 1330 - need to clarify appointmen t time) [phone] 50Pt NEEDS cards f/u with Dr. Estuardo Rodríguez in 2-4 weeks [phone] 84Pt needs f/u cardiac rehab at [facility] after d/c - [id number] tive spirometer at bedside Essential hypertension 36817696 I10 Monitor BPs and adjust meds prn Dyslipidemia 326077121 E 78.5 atorvastat in 80 mg daily Peripheral neuropathy due to type 2 diabetes mellitus 6674919382 107 E11.42 monitor sugars and adjust meds prnOff MADY for renal protection - was d/c'd during antecedent hospitaliz ationTight glycemic control necessary to promote wound healingdul oxatine 20 mg dailygabap entin 600 mg q6hr prn Intermitte nt allergic asthma 8237409940 4775967 J45.20 prn Albuterol- consider adding spacer to maximize med delivery Insomnia c o-occurrent and due to medical condition 5472338280 9105 G47.01 Trazodone 100 mg hsf/u prn Hypomagnesemia 904640298 E83.42 supplement d/c'd PTAupdate level with next lab draw Chronic constipation 236 243047 K59.09 senna 17.2 hscolace dailyprn bowel meds Anemia 021642000 D64.9 acute-on-c hronic post-opdoe s not appear she required a transfusio nmonitor CBC Seasonal allergy 3320547 04 J30.2 Claritin 10- mg prn Stenosis o f celiac artery 2950444010 9118050 I77.4 seen by vascular surg-f/u prn Unintentio nal weight loss 730569171 R63.4 RD consultMon itor weights Vitamin D deficiency 347 09100 E55.9 D3 1000 twice weeklyoutp atient f/u with PCP Hyponatremia 05543228 E8 7.1 had w/u prior to admitfollo w divalents Orthostati c hypotension 84944516 I95.1 BB decreasedf /u prn At moderat e risk for fall 5931314754 12605674 Z91.89 PT/OT Type 2 lou betes mellitus with peripheral angiopathy 622239697 E11.51 metformin 1000 mg bidlispro sliding scale bidpoc glucose bid Health Concerns Section Related Observation LastModified by Organization Detai ls LastModified Time None Recorded Concern Status LastModified by Organization Details LastModified Time None Recorded Advance Directives Directive Y: Payers Insurance Date Sequence Insurance Name Policy Number Policy Swartz Covered Member ID Swartz Member ID Guarantor Name 08/07/2022 1 [facility] - DOS PRIOR TO 2022 - DUAL ELIGIBLE (MEDICARE REPLACEMENT/ADV ANTAGE - HMO) Sonia Marcano [id number] Sonia Marcano Notes Date Note Type Note Provider Name and Address Organization Details Recorded Time 3 text/html Pt seen today for initial review.Seen with Sp-speaking staff 66-y/o F admitted from [facility] where she was hospitalized 07/20-07/31/22 for [...] subacute rehab pt 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 No N/V/D. YOCASTA CHAMBERS PA-C [address] [facility], [address], [place], [address], [facility] 08/01/2022 19:49:54 3 text/html ROS as noted in the HPI seen today for acute rounding visit-66-y/o F admitted from [facility] where she was hospitalized 07/20-07/31/22 for [...] dry healing well, yonis intact RAYMUNDO KIRK, METAL TILE SETTER [address] [facility], [address], [place], [address], [facility] 08/03/2022 15:37:40 3 text/html ROS as noted in the HPI seen today for acute rounding visit, CAOx3 sitting up in bed, lungs clear, chest incision healing well, medial knee incisions healing well no s/s infection yonis intact RAYMUNDO KIRK, METAL TILE SETTER [address] [facility], [address], [place], [address], [facility] 08/05/2022 14:36:03 3 text/html This is [...] seasonal allergies/allergic asthma. Nicci Womack MD [address] [facility], [address], [place], [address], [facility] 08/07/2022 18:29:32 3 text/html ROS as [...] to be removed RAYMUNDO KIRK NP [address] [facility], [address], [place], [address], [facility] 08/10/2022 12:46:34 OBGyn Episode No OBEpisode recorded.
--- OUTSIDE RECORDS SUMMARY | 2025-04-06 14:29 | XMS_ITS | Encounter Summary ---
Author Organization [employer] Address [address] [place] [address] [address] [place] [address] Care Team Providers Care Hyster Machine Operator Name Role Phone Shawna Gamble MD Primary Care Provider Encounter Details Date Type Department Care Team ([facility] st Contact Info) Description 07/10/2022 Orders Only [facility] [address] [place], [place] [phone] Shawna Gamble MD [address] [place] [address] Hypomagnesemia (Primary Dx) Social History Tobacco Use [...] EDT) Magnesium 1.6 1.6 - 2.6 mg/dL [facility] 12/17/2022 1:12 PM EDT 12/17/2022 1:20 PM EDT us Generic External Data Provider LAB BLOOD ORDERAB LES Final Result [facility] [address] [place] [phone] * (ABNORMAL) Basic Metabolic Panel (12/17/2022 1:12 PM EDT) Sodium 138 135 - 145 mmol/L [facility] Potassium 3.6 3.3 - 5.1 mmol/L [facility] Chloride 101 96 - 108 mmol/L [facility] Carbon Dioxide 24 22 - 29 mmol/L [facility] Anion Gap 17 12 - 20 [facility] Urea Nitrogen (BUN) 12 9 - 16 mg/dL [facility] Creatinine, Serum 0.75 0.5 - 1.4 mg/dL [facility] Estimated Glomerular Filt Rate >60 [facility] Comment:NOTE: For -Am erican individuals, multiply the result by 1.210.Chronic Kidney Disease: Estimated GFR < 60 mL/min/1.93q1Nivurp Kidney Disease: Estimated GFR < 15 mL/min/1.73m2 Glucose 118(H) 60 - 115 mg/dL [facility] Calcium 10.2 8.4 - 10.2 mg/dL [facility] 12/17/2022 1:12 PM EDT 12/17/2022 1:20 PM EDT [facility] External Provider LAB BLO OD ORDERABLES Final Result Performing Organization Address [facility] Co de Phone Number [facility] [address] [place] [address] [phone] * Vitamin D, 25-Hydroxy, Total, Immunoassay (12/09/2022 12:14 PM EDT) Vitamin D 25-OH Total 57.1 >30 ng/mL [facility] Comment:Health Based Referen ce Values*< 20 ng/mL [id number] ng/mL Insufficient> 30 ng/mL Sufficient*Norma TREVINO. N [...] ORDERAB LES Final Result Performing Organization Address [facility] Co de Phone Number [facility] [address] [place] [address] [phone] * (ABNORMAL) Magnesium (12/09/2022 12:14 PM EDT) Magnesium 1.5(L) 1.6 - 2.6 mg/dL [facility] 12/09/2022 12:1 4 PM EDT 12/09/2022 12:14 PM EDT Generic External Data Provider LAB BLOOD ORDERAB LES Final Result Performing Organization Address [facility]/ZIP Co de Phone Number [facility] [address] [place] [address] [phone] * Phosphate (As Phosphorus) (12/09/2022 12:14 PM EDT) Phosphorus 3.5 2.7 - 4.5 mg/dL [facility] 12/09/2022 12:1 4 PM EDT 12/09/2022 12:14 PM EDT Generic External Data Provider LAB BLOOD ORDERAB LES Final Result [facility] [address] [place] [phone] * (ABNORMAL) Basic Metabolic Panel (12/09/2022 12:14 PM EDT) Sodium 134(L) 135 - 145 mmol/L [facility] Potassium 4.6 3.3 - 5.1 mmol/L [facility] Chloride 99 96 - 108 mmol/L [facility] Carbon Dioxide 31(H) 22 - 29 mmol/L [facility] Anion Gap 9(L) 12 - 20 [facility] Urea Nitrogen (BUN) 15 9 - 16 mg/dL [facility] Creatinine, Serum 0.87 0.5 - 1.4 mg/dL [facility] Estimated Glomerular Filt Rate >60 [facility] Comment:NOTE: For -Am erican individuals, multiply the result by 1.210.Chronic Kidney Disease: Estimated GFR < 60 mL/min/1.77u3Pdfxae Kidney Disease: Estimated GFR < 15 mL/min/1.73m2 Glucose 273(H) 60 - 115 mg/dL [facility] Calcium 9.4 8.4 - 10.2 mg/dL [facility] 12/09/2022 12:1 4 PM EDT 12/09/2022 12:14 PM EDT [facility] External Provider LAB BLO OD ORDERABLES Final Result Performing Organization Address [facility] de Phone Number [facility] [address] [place] [address] [phone] * (ABNORMAL) Magnesium (11/30/2022 4:06 PM EDT) [facility] Magnesium 1.3(LL) 1.6 - 2.6 mg/dL [facility] Comment:Critical value for t est(s): MAGS Results called to and readback by: DR SALMON Person calling:[employer] Date: [id number] 11/30/2022 4:06 PM EDT 11/30/2022 5:44 PM EDT [facility] External Provider LAB BLO OD ORDERABLES Final Result Performing Organization Address [facility] Phone Number [facility] [address] [place] [phone] * TSH (11/30/2022 4:06 PM EDT) [facility] Thyroid Stimulating Hormone 1.92 0.32 - 4.0 uIU/mL [facility] Comment:TSH 3rd Generation ( [employer]) 11/30/2022 4:06 PM EDT 11/30/2022 5:44 PM EDT [facility] External Provider LAB BLO OD ORDERABLES Final Result Performing Organization Address [facility] de Phone Number [facility] [address] [place] [phone] * (ABNORMAL) CBC auto differential (11/30/2022 4:06 PM EDT) [facility] White Blood Count 7.3 4.8 - 10.8 X10*3/uL [facility] Red Blood Count 3.62(L) 4.20 - 5.50 X10*6/uL [facility] Hemoglobin 10.4(L) 12.0 - 16.0 g/dl [facility] Hematocrit 32.0(L) 37.0 - 47.0 % [facility] Mean Corpuscular Volume 88.4 80.0 - 98.0 fL [facility] Mean Corpuscular Hemoglobin 28.7 27.0 - 33.0 pg [facility] Mean Corpuscular HGB Conc 32.5 31.0 - 35.0 g/dl [facility] Red Cell Distribution Width 19.0(H) 11.0 - 16.0 % [facility] Platelet Count 277 160 - 400 X10*3/uL [facility] Mean Platelet Volume 11.2 9.4 - 12.3 fL [facility] Neutrophils Percent Auto 49.2 45 - 73 % [facility] Imm Gran Pct Auto 0.3 0.0 - 0.4 % [facility] Lymphocytes Percent Auto 36.0 20 - 40 % [facility] Monocytes Percent Auto 11.4(H) 2 - 11 % [facility] Eosinophils Percent Auto 2.1 0 - 4 % [facility] Basophils Percent Auto 1.0 0 - 2 % [facility] NRBC Pct Auto 0.0 0.0 - 0.2 /100WBC [facility] Neutrophils Absolute Auto 3.6 2.0 - 8.3 x10*3/uL [facility] Imm Gran Abs Auto 0.02 0.00 - 0.03 X10*3/uL [facility] Lymphocytes Absolute Auto 2.6 1.2 - 4.9 X10*3/uL [facility] Monocytes Absolute Auto 0.8 0.1 - 1.2 X10*3/uL [facility] Eosinophils Absolute Auto 0.2 0.0 - 0.4 X10*3/uL [facility] Basophils Absolute Auto 0.1 0.0 - 0.2 X10*3/uL [facility] NRBC Abs Auto 0.000 0.0 - 0.012 X10*3/uL [facility] 11/30/2022 4:06 PM EDT 11/30/2022 5:44 PM EDT [facility] External Provider LAB BLO OD ORDERABLES Final Result [facility] [address] [place] [phone] * T-SPOT??.TB (10/30/2022 9:18 AM EDT) T Spot TB Negative Negative [facility] Comment:A negative test resu lt does [...] as aquantitative test. TS PANEL A 0 [facility] TS PANEL B 0 [facility] Negative Control Passed [facility] Positive Control Passed [facility] Comment:For additional infor matfederica, please refer tohttp://education.[employer]/faq/TRW711(This link is being provided for informational/educational purposes only.)THIS TEST WAS PERFORMED AT:[facility] [id number] [place] [phone] ROBERT MD,PHD 10/30/2022 9:18 AM EDT 10/30/2022 9:18 AM EDT [facility] External Provider LAB BLO OD ORDERABLES Final Result [facility] [address] [place] [phone] * Hepatitis B surface antigen, EIA (10/30/2022 9:18 AM EDT) Hepatitis B Surface Ag Negative Negative [facility] 10/30/2022 9:18 AM EDT 10/30/2022 9:18 AM EDT [facility] External Provider LAB BLO OD ORDERABLES Final Result Performing Organization Address [facility] Co de Phone Number [facility] [address] [place] [phone] * HIV Ab/Ag ([facility]) (10/30/2022 9:18 AM EDT) HIV AB/AG Nonreactive Nonreactive [facility] Comment:HIV-1 p24 Ag and/or HIV-1/HIV-2 Ab not detected.A test result that is nonreactive does not exclude thepossibility of exposure to or infection with HIV-1 and/orHIV-2. Nonreactive results in this assay for individualswith prior exposure to HIV-1 and/or HIV-2 may be due toantigen and antibody levels that are below the limit ofdetection of this assay.[employer] HIV Ag/Ab Combo assay result andsupplemental assay results should be interpreted inconjunction with the patient's clinical presentation,history and other laboratory results. If the results areinconsistent with clinical evidence, additional testing issuggested to confirm the result. 10/30/2022 9:18 AM EDT 10/30/2022 9:18 AM EDT [facility] External Provider LAB BLO OD ORDERABLES Final Result Performing Organization Address [facility] Co de Phone Number [facility] [address] [place] [address] [phone] * Hepatitis C Ab (10/30/2022 9:18 AM EDT) Pathologist [facility] Hepatitis C Antibody Nonreactive Nonreactive [facility] Comment:Antibodies to HCV no t detected; does not exclude early acuteHCV infection. 10/30/2022 9:18 AM EDT 10/30/2022 9:18 AM EDT [facility] External Provider LAB BLO OD ORDERABLES Final Result Performing Organization Address [facility] Co de Phone Number [facility] [address] [place] [phone] * Hepatitis B Core Antibody, Total (10/30/2022 9:18 AM EDT) Pathologist [facility] Hepatitis B Core Antibody Nonreactive Nonreactive [facility] 10/30/2022 9:18 AM EDT 10/30/2022 9:18 AM EDT [facility] External Provider LAB BLO OD ORDERABLES Final Result Performing Organization Address [facility] Co de Phone Number [facility] [address] [place] [phone] * Hepatitis B Surface Antibody, Qualitative (10/30/2022 9:18 AM EDT) Pathologist [facility] ~Hepatitis B Surface Antibody NONREACTIVE Nonreactive [facility] Comment:Nonreactive: < 8.00 mIU/mL 10/30/2022 9:18 AM EDT 10/30/2022 9:18 AM EDT [facility] External Provider LAB BLO OD ORDERABLES Final Result Performing Organization Address [facility] de Phone Number [facility] [address] [place] [phone] * Vitamin B12/Folate, Serum Panel (10/30/2022 9:18 AM EDT) Pathologist [facility] Vitamin B12 546 200 - 900 pg/mL [facility] Comment:NORMAL 200-900 PG/ML INDETERMINATE 160-199 PG/ML DEFICIENT < 160 PG/ML Folate 11.6 > or = 4.0 ng/mL [facility] Comment:Reference Values:> o r = 4.0 ng/mL< 4.0 ng/mL suggests folate deficiency Methotrexate, aminopterin and folinic acid(leucovorin) are chemotherapeutic agents whose molecularstructures are similar to folate; therefore, the Architectfolate assay cannot be used for patients using these drugs. 10/30/2022 9:18 AM EDT 10/30/2022 9:18 AM EDT [facility] External Provider LAB BLO OD ORDERABLES Final Result Performing Organization Address [facility] Co de Phone Number [facility] [address] [place] [phone] * Prealbumin (10/30/2022 9:18 AM EDT) [facility] Prealbumin 26.0 20 - 40 mg/dL [facility] 10/30/2022 9:18 AM EDT 10/30/2022 9:18 AM EDT [facility] External Provider LAB BLO OD ORDERABLES Final Result Performing Organization Address [facility] Co de Phone Number [facility] [address] [place] [phone] * (ABNORMAL) Comprehensive Metabolic Panel (10/30/2022 9:18 AM EDT) [facility] Sodium 137 135 - 145 mmol/L [facility] Potassium 3.8 3.3 - 5.1 mmol/L [facility] Chloride 102 96 - 108 mmol/L [facility] Carbon Dioxide 22 22 - 29 mmol/L [facility] Anion Gap 17 12 - 20 [facility] Urea Nitrogen (BUN) 10 9 - 16 mg/dL [facility] Creatinine, Serum 0.90 0.5 - 1.4 mg/dL [facility] Estimated Glomerular Filt Rate >60 [facility] Comment:NOTE: For -Am erican individuals, multiply the result by 1.210.Chronic Kidney Disease: Estimated GFR < 60 mL/min/1.61r6Abmtnz Kidney Disease: Estimated GFR < 15 mL/min/1.73m2 Glucose 134(H) 60 - 115 mg/dL [facility] Calcium 10.0 8.4 - 10.2 mg/dL [facility] Bilirubin, Total 0.5 0.0 - 1.0 mg/dL [facility] Aspartate Amino Transferase 51(H) 5 - 31 U/L [facility] Alanine Aminotransferase 32(H) 0 - 31 U/L [facility] Total Protein 6.9 6.5 - 8.0 g/dL [facility] Albumin Level 3.8 3.5 - 5.0 g/dL [facility] Alkaline Phosphatase 51 39 - 117 U/L [facility] 10/30/2022 9:18 AM EDT 10/30/2022 9:18 AM EDT [facility] External Provider LAB BLO OD ORDERABLES Final Result Performing Organization Address [facility]/ZIP Co de Phone Number [facility] [address] [place] [phone] * (ABNORMAL) Ferritin (08/31/2022 7:32 AM EDT) Ferritin 299(H) 10 - 250 ng/mL [facility] 08/31/2022 7:32 AM EDT 08/31/2022 7:32 AM EDT [facility] External Provider LAB BLO OD ORDERABLES Final Result Performing Organization Address [facility]/ZIP Co de Phone Number [facility] [address] [place] [phone] * B Type Natriuretic Peptide (BNP) (08/31/2022 7:32 AM EDT) B Type Natriuretic Peptide 68 <100 pg/mL [facility] Comment:For those patients w ho are being treated with Natrecor(nesiritide, recombinant BNP), BNP testing should beperformed at least two hours post treatment in order toensure that only endogenous levels of BNP are detected. 08/31/2022 7:32 AM EDT 08/31/2022 7:32 AM EDT [facility] External Provider LAB BLO OD ORDERABLES Final Result Performing Organization Address City/[facility]/ZIP Co de Phone Number [facility] [address] [place] [phone] * (ABNORMAL) Lipase (08/31/2022 7:32 AM EDT) Lipase 154(H) 8 - 78 U/L [facility] 08/31/2022 7:32 AM EDT 08/31/2022 7:32 AM EDT [facility] External Provider LAB BLO OD ORDERABLES Final Result Performing Organization Address City/[facility]/ZIP Co de Phone Number [facility] [address] [place] [phone] * Iron And Total Iron Binding Capacity (08/31/2022 7:32 AM EDT) Iron 36 30 - 160 mcg/dL [facility] Total Iron Binding Capacity 229 228 - 428 mcg/dL [facility] Percent Iron Saturation 16 15 - 50 % [facility] Unsaturated Iron Binding 193 ug/dL [facility] 08/31/2022 7:32 AM EDT 08/31/2022 7:32 AM EDT [facility] External Provider LAB BLO OD ORDERABLES Final Result Performing Organization Address [facility] de Phone Number [facility] [address] [place] [phone] * (ABNORMAL) Basic Metabolic Panel (08/31/2022 7:32 AM EDT) Pathologist [facility] Sodium 138 135 - 145 mmol/L [facility] Potassium 3.8 3.3 - 5.1 mmol/L [facility] Chloride 102 96 - 108 mmol/L [facility] Carbon Dioxide 20(L) 22 - 29 mmol/L [facility] Anion Gap 20 12 - 20 [facility] Urea Nitrogen (BUN) 6(L) 9 - 16 mg/dL [facility] Creatinine, Serum 0.85 0.5 - 1.4 mg/dL [facility] Estimated Glomerular Filt Rate >60 [facility] Comment:NOTE: For -Am erican individuals, multiply the result by 1.210.Chronic Kidney Disease: Estimated GFR < 60 mL/min/1.11t1Npujza Kidney Disease: Estimated GFR < 15 mL/min/1.73m2 Glucose 137(H) 60 - 115 mg/dL [facility] Calcium 9.1 8.4 - 10.2 mg/dL [facility] 08/31/2022 7:32 AM EDT 08/31/2022 7:32 AM EDT [facility] External Provider LAB BLO OD ORDERABLES Final Result Performing Organization Address [facility] Co de Phone Number [facility] [address] [place] [phone] * (ABNORMAL) Hepatic Function Panel (08/31/2022 7:32 AM EDT) Bilirubin, Total 0.4 0.0 - 1.0 mg/dL [facility] Bilirubin, Direct 0.2 0.0 - 0.5 mg/dL [facility] Aspartate Amino Transferase 17 5 - 31 U/L [facility] Alanine Aminotransferase 8 0 - 31 U/L [facility] Total Protein 6.8 6.5 - 8.0 g/dL [facility] Albumin Level 3.8 3.5 - 5.0 g/dL [facility] Alkaline Phosphatase 120(H) 39 - 117 U/L [facility] 08/31/2022 7:32 AM EDT 08/31/2022 7:32 AM EDT us [facility] External Provider LAB BLO OD ORDERABLES Final Result [facility] [address] [place] [phone] * (ABNORMAL) CBC auto differential (08/31/2022 7:32 AM EDT) White Blood Count 12.4(H) 4.8 - 10.8 X10*3/uL [facility] Red Blood Count 3.94(L) 4.20 - 5.50 X10*6/uL [facility] Hemoglobin 11.4(L) 12.0 - 16.0 g/dl [facility] Hematocrit 36.0(L) 37.0 - 47.0 % [facility] Mean Corpuscular Volume 91.4 80.0 - 98.0 fL [facility] Mean Corpuscular Hemoglobin 28.9 27.0 - 33.0 pg [facility] Mean Corpuscular HGB Conc 31.7 31.0 - 35.0 g/dl [facility] Red Cell Distribution Width 14.7 11.0 - 16.0 % [facility] Platelet Count 425(H) 160 - 400 X10*3/uL [facility] Mean Platelet Volume 10.3 9.4 - 12.3 fL [facility] Neutrophils Percent Auto 53.6 45 - 73 % [facility] Imm Gran Pct Auto 0.4 0.0 - 0.4 % [facility] Lymphocytes Percent Auto 30.2 20 - 40 % [facility] Monocytes Percent Auto 10.1 2 - 11 % [facility] Eosinophils Percent Auto 4.6(H) 0 - 4 % [facility] Basophils Percent Auto 1.1 0 - 2 % [facility] NRBC Pct Auto 0.0 0.0 - 0.2 /100WBC [facility] Neutrophils Absolute Auto 6.7 2.0 - 8.3 x10*3/uL [facility] Imm Gran Abs Auto 0.05(H) 0.00 - 0.03 X10*3/uL [facility] Lymphocytes Absolute Auto 3.8 1.2 - 4.9 X10*3/uL [facility] Monocytes Absolute Auto 1.3(H) 0.1 - 1.2 X10*3/uL [facility] Eosinophils Absolute Auto 0.6(H) 0.0 - 0.4 X10*3/uL [facility] Basophils Absolute Auto 0.1 0.0 - 0.2 X10*3/uL [facility] NRBC Abs Auto 0.000 0.0 - 0.012 X10*3/uL [facility] 08/31/2022 7:32 AM EDT 08/31/2022 7:32 AM EDT [facility] External Provider LAB BLO OD ORDERABLES Final Result [facility] [address] [place] [phone] * Hemoglobin A1c (08/31/2022 7:32 AM EDT) Hemoglobin A1c 5.8 % [facility] Comment:Hemoglobin A1C Refer ence Range Adults: 4.8 - 6.0 % Non diabetic: < 6.0 % Goal: < 7.0 %Additional Action Suggested: > 8.0 %Note: Hemoglobin A1c results are invalid for patients with abnormal amounts of HbF. Blood transfusions may impact the HbA1c concentration in the patient sample. Estimated Average Glucose 120 mg/dL [facility] Comment:eAG = Estimated ave rage glucose which is %A1C expressed asaverage glucose, using the formula of the L0Y-RhwnbpwZudybev Glucose study (ADAG), Diabetes Care, Vol.31,#8,Dec. 2007 08/31/2022 7:32 AM EDT 08/31/2022 7:32 AM EDT [facility] External Provider LAB BLO OD ORDERABLES Final Result Performing Organization Address City/[facility]/ZIP Co de Phone Number [facility] [address] [place] [phone] * (ABNORMAL) Basic Metabolic Panel (08/10/2022 4:55 AM EDT) Sodium 137 135 - 145 mmol/L [facility] Potassium 4.7 3.3 - 5.1 mmol/L [facility] Chloride 105 96 - 108 mmol/L [facility] Carbon Dioxide 21(L) 22 - 29 mmol/L [facility] Anion Gap 16 12 - 20 [facility] Urea Nitrogen (BUN) 9 9 - 16 mg/dL [facility] Creatinine, Serum 0.79 0.5 - 1.4 mg/dL [facility] Estimated Glomerular Filt Rate >60 [facility] Comment:NOTE: For -Am erican individuals, multiply the result by 1.210.Chronic Kidney Disease: Estimated GFR < 60 mL/min/[id number] Kidney Disease: Estimated GFR < 15 mL/min/1.73m2 Glucose 95 60 - 115 mg/dL [facility] Calcium 8.7 8.4 - 10.2 mg/dL [facility] 08/10/2022 4:55 AM EDT 08/10/2022 6:02 AM EDT [facility] External Provider LAB BLO OD ORDERABLES Final Result Performing Organization Address [facility]/ZIP Co de Phone Number [facility] [address] [place] [address] [phone] * (ABNORMAL) CBC auto differential (08/10/2022 4:55 AM EDT) White Blood Count 9.3 4.8 - 10.8 X10*3/uL [facility] Red Blood Count 3.24(L) 4.20 - 5.50 X10*6/uL [facility] Hemoglobin 9.7(L) 12.0 - 16.0 g/dl [facility] Hematocrit 30.5(L) 37.0 - 47.0 % [facility] Mean Corpuscular Volume 94.1 80.0 - 98.0 fL [facility] Mean Corpuscular Hemoglobin 29.9 27.0 - 33.0 pg [facility] Mean Corpuscular HGB Conc 31.8 31.0 - 35.0 g/dl [facility] Red Cell Distribution Width 15.2 11.0 - 16.0 % [facility] Platelet Count 647(H) 160 - 400 X10*3/uL [facility] Mean Platelet Volume 10.1 9.4 - 12.3 fL [facility] Neutrophils Percent Auto 54.9 45 - 73 % [facility] Imm Gran Pct Auto 0.5(H) 0.0 - 0.4 % [facility] Lymphocytes Percent Auto 26.3 20 - 40 % [facility] Monocytes Percent Auto 8.3 2 - 11 % [facility] Eosinophils Percent Auto 8.5(H) 0 - 4 % [facility] Basophils Percent Auto 1.5 0 - 2 % [facility] NRBC Pct Auto 0.0 0.0 - 0.2 /100WBC [facility] Neutrophils Absolute Auto 5.1 2.0 - 8.3 x10*3/uL [facility] Imm Gran Abs Auto 0.05(H) 0.00 - 0.03 X10*3/uL [facility] Lymphocytes Absolute Auto 2.4 1.2 - 4.9 X10*3/uL [facility] Monocytes Absolute Auto 0.8 0.1 - 1.2 X10*3/uL [facility] Eosinophils Absolute Auto 0.8(H) 0.0 - 0.4 X10*3/uL [facility] Basophils Absolute Auto 0.1 0.0 - 0.2 X10*3/uL [facility] NRBC Abs Auto 0.000 0.0 - 0.012 X10*3/uL [facility] 08/10/2022 4:55 AM EDT 08/10/2022 6:02 AM EDT us [facility] External Provider LAB BLO OD ORDERABLES Final Result [facility] [address] [place], [place] [phone] * (ABNORMAL) Comprehensive Metabolic Panel (08/03/2022 5:00 AM EDT) Sodium 136 135 - 145 mmol/L [facility] Potassium 3.9 3.3 - 5.1 mmol/L [facility] Chloride 107 96 - 108 mmol/L [facility] Carbon Dioxide 20(L) 22 - 29 mmol/L [facility] Anion Gap 13 12 - 20 [facility] Urea Nitrogen (BUN) 11 9 - 16 mg/dL [facility] Creatinine, Serum 0.79 0.5 - 1.4 mg/dL [facility] Estimated Glomerular Filt Rate >60 [facility] Comment:NOTE: For -Am erican individuals, multiply the result by 1.210.Chronic Kidney Disease: Estimated GFR < 60 mL/min/1.31t8Utitls Kidney Disease: Estimated GFR < 15 mL/min/1.73m2 Glucose 127(H) 60 - 115 mg/dL [facility] Calcium 8.2(L) 8.4 - 10.2 mg/dL [facility] Bilirubin, Total 0.3 0.0 - 1.0 mg/dL [facility] Aspartate Amino Transferase 16 5 - 31 U/L [facility] Alanine Aminotransferase 7 0 - 31 U/L [facility] Total Protein 4.8(L) 6.5 - 8.0 g/dL [facility] Albumin Level 2.5(L) 3.5 - 5.0 g/dL [facility] Alkaline Phosphatase 80 39 - 117 U/L [facility] 08/03/2022 5:00 AM EDT 08/03/2022 5:47 AM EDT [facility] External Provider LAB BLO OD ORDERABLES Final Result [facility] [address] [place] [address] [phone] * (ABNORMAL) CBC auto differential (08/03/2022 5:00 AM EDT) White Blood Count 8.8 4.8 - 10.8 X10*3/uL [facility] Red Blood Count 2.63(L) 4.20 - 5.50 X10*6/uL [facility] Hemoglobin 8.0(L) 12.0 - 16.0 g/dl [facility] Hematocrit 24.6(L) 37.0 - 47.0 % [facility] Mean Corpuscular Volume 93.5 80.0 - 98.0 fL [facility] Mean Corpuscular Hemoglobin 30.4 27.0 - 33.0 pg [facility] Mean Corpuscular HGB Conc 32.5 31.0 - 35.0 g/dl [facility] Red Cell Distribution Width 15.5 11.0 - 16.0 % [facility] Platelet Count 552(H) 160 - 400 X10*3/uL [facility] Mean Platelet Volume 10.3 9.4 - 12.3 fL [facility] Neutrophils Percent Auto 61.1 45 - 73 % [facility] Imm Gran Pct Auto 0.8(H) 0.0 - 0.4 % [facility] Lymphocytes Percent Auto 21.7 20 - 40 % [facility] Monocytes Percent Auto 10.2 2 - 11 % [facility] Eosinophils Percent Auto 4.9(H) 0 - 4 % [facility] Basophils Percent Auto 1.3 0 - 2 % [facility] NRBC Pct Auto 0.0 0.0 - 0.2 /100WBC [facility] Neutrophils Absolute Auto 5.4 2.0 - 8.3 x10*3/uL [facility] Imm Gran Abs Auto 0.07(H) 0.00 - 0.03 X10*3/uL [facility] Lymphocytes Absolute Auto 1.9 1.2 - 4.9 X10*3/uL [facility] Monocytes Absolute Auto 0.9 0.1 - 1.2 X10*3/uL [facility] Eosinophils Absolute Auto 0.4 0.0 - 0.4 X10*3/uL [facility] Basophils Absolute Auto 0.1 0.0 - 0.2 X10*3/uL [facility] NRBC Abs Auto 0.000 0.0 - 0.012 X10*3/uL [facility] 08/03/2022 5:00 AM EDT 08/03/2022 5:47 AM EDT [facility] External Provider LAB BLO OD ORDERABLES Final Result Performing Organization Address City/[facility]/ZIP Co de Phone Number [facility] [address] [place] [phone] * (ABNORMAL) Magnesium (07/13/2022 8:29 AM EST) Magnesium 1.5(L) 1.6 - 2.6 mg/dL [facility] 07/13/2022 8:29 AM EST 07/13/2022 8:29 AM EST [facility] External Provider LAB BLO OD ORDERABLES Final Result Performing Organization Address [facility] Co de Phone Number [facility] [address] [place] [phone] documented in this encounter Visit Diagnoses Diagnosis Hypomagnesemia- Primary Disorders of magnesium metabolism documented in this encounter Care Teams Hyster Machine Operator Relationship Specialty Start Date End Date Shawna Gamble MD [address] [place] [address] PCP - General Family Medicine 05/13/22 [employer] 01/22/25 documented as of this encounter
--- OUTSIDE RECORDS SUMMARY | 2025-04-06 14:29 | XMS_ITS | Encounter Summary ---
Author Organization [employer] Address [address] [facility] [address] [place] [address] Care Team Providers Care Laboratory Equipment Cleaner Name Role Phone Shawna Gamble MD Primary Care Provider [phone] Encounter Details Date Type Department Care Team ([facility] st Contact Info) Description 12/01/2023 Orders Only [facility] [address] [place], [place] [phone] Shawna Gamble MD [address] [place] [address] Closed fracture of medial portion of left [...] documented as of this encounter Care Teams Laboratory Equipment Cleaner Relationship Specialty Start Date End Date Shawna Gamble MD [address] [place] [address] PCP - General Family Medicine 05/13/22 [employer] 01/22/25 documented as of this encounter
--- OUTSIDE RECORDS SUMMARY | 2025-04-06 14:29 | XMS_ITS | Encounter Summary ---
Author Organization [employer] Address [address] [place] [address] [address] [place] [address] Care Team Providers Care Pipeline Operator Name Role Phone Makenna Trinidad MD Primary [facility] Provider [facility] Primary Care Provider [phone] Encounter Details Date Type Department Care Team [...] on filedocumented in this encounter Care Teams Pipeline Operator Relationship Specialty Start Date End Date Makenna Trinidad MD PCP - General Family Medicine 03/24/19 05/12/22 Shawna Gamble MD [address] [place] [address] PCP - General Family Medicine 05/13/22 [employer] 01/22/25 documented as of this encounter
--- OUTSIDE RECORDS SUMMARY | 2025-04-06 14:29 | XMS_ITS | Encounter Summary ---
Author Organization [employer] Address [address] [place] [address] [address] [place] [address] Care Team Providers Care Cook Ship Name Role Phone Shawna Gamble MD Primary Care Provider [phone] Encounter Details Date Type Department Care Team ([facility] st Contact Info) Description 07/13/2022 Abstract [facility] [address] [place] [address] Uriel Jacobs DDS [address] [place] [address] Social History Tobacco Use Types Packs/Day Years [...] on filedocumented in this encounter Care Teams Cook Ship Relationship Specialty Start Date End Date Shawna Gamble MD [address] [place] [address] PCP - General Family Medicine 05/13/22 [employer] 01/22/25 documented as of this encounter
--- OUTSIDE RECORDS SUMMARY | 2025-04-06 14:29 | XMS_ITS | Encounter Summary ---
Author Organization [employer] Address [address] [facility] [address] [place] [address] Care Team Providers Care Grain Packer Name Role Phone Shawna Gamble MD Primary Care Provider [phone] Encounter Details Date Type Department Care Team ([facility] st Contact Info) Description 10/20/2024 Orders Only [facility] [address] [place], [place] [phone] Shawna Gamble MD [address] [place] [address] Hypomagnesemia (Primary Dx) Social History Tobacco Use [...] EDT) Magnesium 1.3(LL) 1.6 - 2.6 mg/dL [facility] Comment:Critical value for M AG: Results called to and read back by:Preethi Suarez Person calling: NETO Date: 10/27/24 Time: 1414 Blood Venous blood specimen / Unknown 10/27/2024 12:45 PM EDT 10/27/2024 12:45 PM EDT us Shawna Gamble MD LAB BLOOD ORDERABLES Final Res ult [facility] [address] [place] [address] [phone] documented in this encounter Visit Diagnoses Diagnosis Hypomagnesemia- Primary Disorders of magnesium metabolism documented in this encounter Additional Health Concerns Assessment Noted Time PHQ-9 Depression Total Score: 6 10/19/19 25 11:41 AM EDT documented as of this encounter Care Teams Grain Packer Relationship Specialty Start Date End Date Shawna Gamble MD [address] [place] [phone] PCP - General Family Medicine 05/13/22 [employer] 01/22/25 documented as of this encounter
--- OUTSIDE RECORDS SUMMARY | 2025-04-06 14:29 | XMS_ITS | Clinical Summary ---
Author Organization [employer] Address [address] [place] [address] [address] [place] [address] Care Team Providers Care Stacker Attendant Name Role Phone Shawna Gamble MD Primary Care Provider [phone] Allergies Active Allergy Reactions Criticality Noted Date [...] Active cholecalcifero l (Vitamin D-3) 250 MCG (11549 UT) capsule TAKE 1 CAPSULE BY MOUTH [...] 03/17/20 23 Active OneTouch Delica Lancets 33G [facility] Use to test blood sugar 2 times [...] tabletIndicati ons:Atheroscle rosis of coronary artery of [place] heart, unspecified vessel or lesion type, unspecified [...] 90 tablet 3 03/14/20 25 2025 Active acetaminophen (Tylenol 8 Hour) 650 MG ER tabletIndicati ons:Paronychia of great toe of left foot Take 1 tablet (650 mg) by mouth every 8 (eight) hours if needed for mild pain for up to 10 days. Do not crush, chew, or split. 30 tablet 04/03/20 25 2024 Active triamcinolone (Kenalog) 0.1 % [...] 3 03/09/20 25 2024 Discontinued(D ose adjustment) acetic acid-hydrocort isone (Vosol-HC) otic solution Administer 3 drops into the right ear 2 times daily for 10 days. 10 mL 03/14/20 25 2024 acetic acid (Vosol) 2 % otic solution Administer 5 drops into each ear 3 times daily for 7 days. 15 mL 03/19/20 25 2024 Active Problems Problem Noted Date Diagnosed Date Paronychia of great toe of left foot 04/03/2025 Assessment & Plan (04/03/2025 2:55 PM EST): Orders: Referral to Podiatry; Future acetaminophen (Tylenol 8 Hour) 650 MG ER tablet; Take 1 tablet (650 mg) by mouth every 8 (eight) hours if needed for mild pain for up to 10 days. Do not crush, chew, or split. Mixed conductive and sensori neural hearing loss [...] - home PT to start soon through [facility] services Fractured dental gnosticism with loss of materi al 10/20/2023 Drug-induced xerostomia 10/20/2023 Depression, recurrent 10/17/2023 Assessment & Plan (10/17/2023 5:39 PM EDT): On Elavil, Remeron, Duloxetine for pain, sleep, appetite Would not add additional agents at this time She denies SI/HI Dental caries 04/29/2023 History of coronary artery bypass surgery 2022 Overview (03/17/2023): 07/2022 at [facility] Chest pain on breathing 12/04/2022 [...] diabetic neuropathy, unspecified 03/10/2012 Assessment & Plan (04/03/2025 2:55 PM EST): Orders: POCT Glucose Hemoglobin A1c; Future Assessment & Plan (01/09/2025 3:40 PM EDT): [...] Encounters Date Type Department Care Team Description 04/06/2025 Orders Only GENERIC EXTERNAL DATA DEPARTMENT Provider, Generic External Data 04/06/2025 Telephone [facility] [address] [place] [address] Shawna Gamble MD Nurse Triage 04/03/2025 2:00 PM EST Office Visit [facility] [address] [place] [address] Amy Camara NP Type 2 diabetes mellitus with diabetic neuropathy, without long-term current use of insulin (HCC) (Primary Dx); Paronychia of great toe of left foot 04/03/[address] [address] Shawna Gamble MD VNA Request 04/03/2025 Travel 04/02/[address] [address] Shawna Gamble MD Nurse Triage 03/27/[address] [address] Shawna Gamble MD 03/26/[address] [address] Shawna Gamble MD Durable Medical Equipment (DME: Ensure) 03/23/[address] [address] Shawna Gamble MD Results 03/22/[address] [address] Shawna Gamble MD Prior Authorization 03/16/[address] [address] An Brown, RN CCA form 03/15/[address] [address] Shawna Gamble MD 03/14/2025 3:45 PM EDT Office Visit [address] [address] Shawna Gamble MD Hypomagnesemia (Primary Dx); Type 2 diabetes mellitus with diabetic neuropathy, without long-term current use of insulin (HCC); Mixed conductive and sensorineural hearing loss of both ears; Muscle wasting and atrophy, not elsewhere classified, unspecified upper arm; History of fragility fracture; Chronic kidney disease, stage 2 (mild); Chronic constipation; Orthostatic hypotension; Essential hypertension; Unintentional weight loss; Peripheral arterial disease 03/14/[address] [address] Shawna Gamble MD 03/14/2025 Travel 03/13/[address] [address] Shawna Gamble MD chart prep 03/09/2025 Orders Only [facility] [address] [place] [address] Shawna Gamble MD 03/06/2025 3:45 PM EDT Telemedicine [address] [address] Name, MD Robles Closed fracture of one rib of right side, initial encounter (Primary Dx); Rib pain 03/06/2025 Travel 02/27/2025 Orders Only GENERIC EXTERNAL DATA DEPARTMENT Provider, Generic External Data 02/27/[address] [address] Shawna Gamble MD fyi 02/27/[address] [address] Shawna Gamble MD Nurse Triage 02/22/[address] [address] Shawna Gamble MD fyi 02/22/[address] [address] Shawna Gamble MD nov recall 02/12/2025 Orders Only GENERIC EXTERNAL DATA DEPARTMENT Provider, Generic External Data 01/23/[address] [address] Shawna Gamble MD Durable Medical Equipment (DME Request: Bed Assist Bars) 01/23/[address] [address] Shawna Gamble MD verbal orders needed 01/22/[address] [address] Shawna Gamble MD Hypomagnesemia; Seasonal allergies 01/17/[address] [address] hSawna Gamble MD Prior Authorization 01/10/[address] [address] An Brown RN VNA REFERRAL 01/10/2025 Telephone [facility] [address] [place] [address] Shawna Gamble MD 01/08/2025 3:30 PM EDT Office Visit [facility] [address] [place] [address] Shanwa Gamble MD Right hip pain (Primary Dx); Type 2 diabetes mellitus with diabetic neuropathy, without long-term current use of insulin ([facility]); Essential hypertension; Orthostatic hypotension; Pain of left hip 01/08/2025 Travel 01/05/2025 Telephone [facility] [address] [place] [address] Shawna Gamble MD chart prep from Last 3 Months Immunizations Immunization Administration [...] Mass Index 25.06 04/03/2025 2:24 PM EST Plan of Treatment Health Maintenance Due Date Last Done Comments CT Colonography 1955 Dental X-Ray: Full Mouth 1955 FIT DNA/Cologuard 1955 FIT 1955 FOBT 1955 Sigmoidoscopy 1955 RSV Patients and Patients Aged 60 years or older (1 - Risk 50-74 years 1-dose series) 09/06/2003 Hepatitis B Vaccines (2 of 3 - 19+ 3-dose series) 05/25/2018 04/27/2018 Zoster Vaccines (2 of 3) 03/19/2020 01/23/2020, 07/16 Dental Oral Exam 12/17/2022 06/18/2022 Dental Prophylaxis 12/17/2022 06/18/2022 Diabetes: Foot Exam 10/31/2023 10/30/2022, Dental X-Ray: Bitewings 03/03/2024 03/02/2023, 06/18 COVID-19 Vaccine ( - season) 2025 03/11/2021, 02/04/2021 Influenza Vaccine (#1) 2025 , 03/04/2022, 03/04/2022, Additional history exists Diabetes: Hemoglobin A1C 04/10/2025 025, 10/18/2024, 12/08/2023, Additional history exists Eye Exam 06/21/2025 06/21/2023 Mammogram 06/30/2025 06/30/2024, 09/2023, 03/13/2022, Additional history exists Depression Screening 10/18/2025 10/18/2024, 10/19/19 25 Diabetes: Urine Protein Screening 10/20/2025 10/20/2024, 07/21/2023, 03/15/2023, Additional history exists Lipid Panel 10/20/2025 10/20/2024, 02/16, 03/13/2022, Additional history exists SDOH Screening 12/01/2025 12/01/2024 Alcohol/Substance Use Screening 04/03/2026 04/03/2025 Tobacco Screening 04/03/2026 04/03/2025 DTaP/Tdap/Td Vaccines (2 - Td or Tdap) [...] on patient's age to complete this topic Goals Goal Patient Goal Type Associated Problems [...] chronic kidney disease No Luis Manuel Booth Procedures Procedure Name Priority Date/Time Associated Diagnosis Comments XR FOOT 3+ VIEWS LEFT Routine 04/06/2025 1:30 PM EST URINALYSIS, COMPLETE, WITH REFLEX TO CULTURE Routine 04/06/2025 1:17 PM EST C-REACTIVE PROTEIN Routine 04/06/2025 1: 16 PM EST COMPREHENSIVE METABOLIC PANEL Routine 04/06/2025 1:16 PM EST URIC ACID Routine 04/06/2025 1:16 PM EST CBC WITH AUTO DIFFERENTIAL Routine 04/06/2025 1:16 PM EST POCT GLUCOSE Routine 04/03/2025 2:26 PM EST Type 2 diabetes mellitus with diabetic neuropathy, without long-term current use of insulin (HCC) CBC WITH AUTO DIFFERENTIAL Routine 03/19/2025 10:45 AM EST Hypomagnesemia MAGNESIUM Routine 03/19/2025 10:45 AM EST Hypomagnesemia POCT [...] without long-term current use of insulin (CMS/HCC) POCT GLYCATED HEMOGLOBIN, TOTAL Routine 01/08/2025 3:48 PM EDT Type 2 diabetes mellitus with diabetic neuropathy, without long-term current use of insulin (CMS/HCC) LIPID PANEL, STANDARD Routine 10/20/2024 10:23 AM EDT Type 2 diabetes mellitus with diabetic neuropathy, without long-term current use of insulin (CMS/HCC) ALBUMIN, RANDOM URINE W/CREATININE Routine 10/20/2024 10:18 [...] Recently Relevant to Health Maintenance Results * XR Foot 3+ Views Left (04/06/2025 1:30 PM EST) Anatomical Region Laterality Modality Lower Extremities, Foot Left Radiogra phic Imaging 04/06/2025 1:30 PM EST Narrative 04/06/2025 1:51 PM EST [place] [address] XRay Report Signed Patient: Sonia Marcano MR#: [id number] 5 : 1955 Acct:[id number] Age/Sex: 69 / F ADM Date: 04/06/25 Loc: HO.ED Attending Dr: Ordering Physician: Bry Spencer Date of Service: 04/06/25 Procedure(s): XR foot LT min 3V Accession Number(s): [id number] cc: Bry Spencer; Shawna Gamble Reason for Exam: redness and swelling EXAMINATION: XR FOOT, LEFT CLINICAL INFORMATION: redness and swelling COMPARISON: March 16, 2021 TECHNIQUE: AP, lateral, and oblique views of the left foot. FINDINGS: Short linear metallic foreign body is located dorsal to the base of the second and third metatarsals. It was present on the prior. There is diffuse osteopenia. No definite focal erosions are identified. There is mild hallux valgus deformity. Minute marginal osteophytes are noted at the first MTP joint. Small marginal osteophytes are present at the first IP joint. Calcaneal spurs are noted at the plantar fascia and Achilles tendon attachments. Moderate atherosclerotic calcifications are present. XR/XR foot LT min 3V IMPRESSION: Diffuse osteopenia. No definite focal aggressive erosions are identified. There is hallux valgus deformity and mild degenerative changes involving first MTP and IP joints. Electronically signed by: Pj Osullivan MD 04/06/2025 01:48 PM EST RP Dictated By: jP Osullivan MD Signed By: <Electronically signed by Pj Osullivan MD in OV> 04/06/25 1348 DD/ 1330 TD/TT: 04/06/25 1333 Dry Roller: Procedure Note Donotuseinterpreter, Image - 04/06/2025 [place] [address] XRay Report Signed Patient: Italia Marcano#: [id number] 5 : 4Acct:[id number] Age/Sex: 69 / FADM Date: 04/06/25 Loc: HO.ED Attending Dr: Ordering Physician: Bry Spencer Date of Service: 04/06/25 Procedure(s): XR foot LT min 3V Accession Number(s): [id number] cc: Bry Spencer; Shawna Gamble Reason for Exam: redness and swelling EXAMINATION: XR FOOT, LEFT CLINICAL INFORMATION: redness and swelling COMPARISON: March 16, 2021 TECHNIQUE: AP, lateral, and oblique views of the left foot. FINDINGS: Short linear metallic foreign body is located dorsal to the base of the second and third metatarsals. It was present on the prior. There is diffuse osteopenia. No definite focal erosions are identified. There is mild hallux valgus deformity. Minute marginal osteophytes are noted at the first MTP joint. Small marginal osteophytes are present at the first IP joint. Calcaneal spurs are noted at the plantar fascia and Achilles tendon attachments. Moderate atherosclerotic calcifications are present. XR/XR foot LT min 3V IMPRESSION: Diffuse osteopenia. No definite focal aggressive erosions are identified. There is hallux valgus deformity and mild degenerative changes involving first MTP and IP joints. Electronically signed by: Pj Osullivan MD 04/06/2025 01:48 PM EST RP Dictated By: Pj Osullivan MD Signed By: <Electronically signed by Pj Osullivan MD in OV> 04/06/25 1348 DD/ 1330 TD/TT: 04/06/25 1333 Dry Roller: us [facility] External Provider IMG XR PROCEDURES Final Result * (ABNORMAL) Urinalysis, Complete, with Reflex to Culture (04/06/2025 1:17 PM EST) Only the most recent of3 resultswithin the time period is included. Color Urine Yellow [facility] Appearance Urine Clear [facility] PH 8.5 5.0 - 9.0 [facility] Glucose Urine UA >=1000(A) Negative mg/dL [facility] Urine Blood Large (3+)(A) Negative [facility] Specific [place] - Urine 1.015 1.005 - 1.025 [facility] Urine Protein Trace Neg-Trace mg/dL [facility] Urine Ketones Negative Negative mg/dL [facility] Nitrite Urine Negative Negative [facility] Leukocyte Esterase Urine Moderate (2+)(A) Negative [facility] RBC Urine 3-5(A) 0 - 2 /HPF [facility] Urine WBC >50(A) 0 - 5 /HPF [facility] Urine Squamous Epithelial Cell 0-2 0 - 2 /HPF [facility] Urine Bacteria 4+ None Seen [facility] Hyaline Casts, Urine 0-2 0 - 2 /LPF [facility] 04/06/2025 1:17 PM EST 04/06/2025 1:22 PM EST Narrative [facility] - 04/06/2025 1:37 PM EST [id number], Clean Catch Generic External Data Provider LAB URINE ORDERAB LES Final Result [facility] [address] [place] [address] [phone] * (ABNORMAL) CBC auto differential (04/06/2025 1:16 PM EST) Only the most recent of4 resultswithin the time period is included. White Blood Count 13.9(H) 4.8 - 10.8 X10*3/uL [facility] Red Blood Count 4.28 4.20 - 5.50 X10*6/uL [facility] Hemoglobin 11.8(L) 12.0 - 16.0 g/dl [facility] Hematocrit 37.3 37.0 - 47.0 % [facility] Mean Corpuscular Volume 87.1 80.0 - 98.0 fL [facility] Mean Corpuscular Hemoglobin 27.6 27.0 - 33.0 pg [facility] Mean Corpuscular HGB Conc 31.6 31.0 - 35.0 g/dl [facility] Red Cell Distribution Width 15.9 11.0 - 16.0 % [facility] Platelet Count 291 160 - 400 X10*3/uL [facility] Mean Platelet Volume 11.5 9.4 - 12.3 fL [facility] Neutrophils Percent Auto 77.6(H) 45 - 73 % [facility] Imm Gran Pct Auto 0.4 0.0 - 0.4 % [facility] Lymphocytes Percent Auto 12.4(L) 20 - 40 % [facility] Monocytes Percent Auto 6.8 2 - 11 % [facility] Eosinophils Percent Auto 1.9 0 - 4 % [facility] Basophils Percent Auto 0.9 0 - 2 % [facility] NRBC Pct Auto 0.0 0.0 - 0.2 /100WBC [facility] Neutrophils Absolute Auto 10.8(H) 2.0 - 8.3 x10*3/uL [facility] Imm Gran Abs Auto 0.05(H) 0.00 - 0.03 X10*3/uL [facility] Lymphocytes Absolute Auto 1.7 1.2 - 4.9 X10*3/uL [facility] Monocytes Absolute Auto 1.0 0.1 - 1.2 X10*3/uL [facility] Eosinophils Absolute Auto 0.3 0.0 - 0.4 X10*3/uL [facility] Basophils Absolute Auto 0.1 0.0 - 0.2 X10*3/uL [facility] NRBC Abs Auto 0.000 0.0 - 0.012 X10*3/uL [facility] 04/06/2025 1:16 PM EST 04/06/2025 1:22 PM EST us Generic External Data Provider LAB BLOOD ORDERAB LES Final Result Performing Organization Address [facility] Phone Number [facility] [address] [place] [phone] * C-reactive Protein (04/06/2025 1:16 PM EST) Only the most recent of2 resultswithin the time period is included. C Reactive Protein <0.10 < or = 0.50 mg/dL [facility] 04/06/2025 1:16 PM EST 04/06/2025 1:22 PM EST us Generic External Data Provider LAB BLOOD ORDERAB LES Final Result Performing Organization Address [facility] de Phone Number [facility] [address] [place] [phone] * Uric acid (04/06/2025 1:16 PM EST) Uric Acid 4.3 2.4 - 5.7 mg/dL [facility] 04/06/2025 1:16 PM EST 04/06/2025 1:22 PM EST us Generic External Data Provider LAB BLOOD ORDERAB LES Final Result Performing Organization Address [facility] Co de Phone Number [facility] [address] [place] [phone] * (ABNORMAL) Comprehensive Metabolic Panel (04/06/2025 1:16 PM EST) Only the most recent of2 resultswithin the time period is included. Sodium 136 135 - 145 mmol/L [facility] Potassium 4.6 3.3 - 5.1 mmol/L [facility] Chloride 98 96 - 108 mmol/L [facility] Carbon Dioxide 28 22 - 29 mmol/L [facility] Anion Gap 15 12 - 20 [facility] Urea Nitrogen (BUN) 17(H) 9 - 16 mg/dL [facility] Creatinine, Serum 0.93 0.5 - 1.4 mg/dL [facility] Creatinine Clr Calc Pharmacy 45.8 [facility] Comment:Provided height and weight: 160.02 cm,60.781 kg.eGFR (calculated from the MDRD study equation) and eCrCl(calculated from the Cockcroft-Gault equation) are based ondifferent parameters and may not yield comparable results.If eCrCl result is absurd, please check patient'sheight/weight. Estimated Glomerular Filt Rate 59 [facility] Comment:Chronic Kidney Disea se: Estimated GFR < 60 mL/min/1.82r3Kuibyb Kidney Disease: Estimated GFR < 15 mL/min/1.73m2 Glucose 343(H) 60 - 115 mg/dL [facility] Calcium 10.0 8.4 - 10.2 mg/dL [facility] Bilirubin, Total 0.3 0.0 - 1.0 mg/dL [facility] Aspartate Amino Transferase 49(H) 5 - 31 U/L [facility] Alanine Aminotransferase 37(H) 0 - 31 U/L [facility] Total Protein 8.0 6.5 - 8.0 g/dL [facility] Albumin Level 4.7 3.5 - 5.0 g/dL [facility] Alkaline Phosphatase 169(H) 39 - 117 U/L [facility] 04/06/2025 1:16 PM EST 04/06/2025 1:22 PM EST Generic External Data Provider LAB BLOOD ORDERAB LES Final Result Performing Organization Address [facility]/ZIP Co de Phone Number [facility] [address] [place] [address] [phone] * POCT Glucose (04/03/2025 2:26 PM EST) Only the most recent of3 resultswithin the time period is included. Glucose Blood, POC 186 60 - 200 mg/dL QC [employer] Lot # [id number] Lot# Expiration Date [id number] Blood Capillary blood specimen / Unknown 04/03/2025 2:26 PM EST Amy Camara NP POINT OF CARE TEST ENTER/EDIT OR DERABLES Final Result * Magnesium (03/19/2025 10:45 AM EST) Only the most recent of2 resultswithin the time period is included. Magnesium 1.8 1.6 - 2.6 mg/dL [facility] Blood Venous blood specimen / Unknown 03/19/2025 10:45 AM EST 03/19/2025 10:45 AM EST Shawna Gamble MD LAB BLOOD ORDERABLES Final Res ult Performing Organization Address [facility]/ZIP Co de Phone Number [facility] [address] [place] [address] [phone] * CT Head w/o Contrast (02/27/2025 7:06 PM EDT) Only the most recent of2 resultswithin the time period is included. Anatomical Region Laterality Modality Head, Neck Computed Tomogra phy 02/27/2025 7:06 PM EDT Narrative 02/27/2025 7:07 PM EDT [address] [address] [address] Scan Report Signed Patient: Sonia Marcano MR#: [id number] 5 : 1955 Acct:[id number] Age/Sex: 69 / F ADM Date: 02/27/25 Loc: HO.ED Attending Dr: Ordering Physician: Selena Galo MD Date of Service: 02/27/25 Procedure(s): CT head/brain wo IV con Accession Number(s): [id number] cc: Shawna Gamble; Selena Galo MD Report Number: [id number]: Total DLP = 0.00 mGy-cm Reason for [...] in OV> 02/27/251906 DD/ 05 TD/TT: 02/27/251905 Dry Roller: Procedure Note Donotuseinterpreter, Image - 02/27/[address] [place] [address] [address] Scan Report Signed Patient: Sonia MarcanoMR#: [id number] 5 : 4Acct:[id number] Age/Sex: 69 / FADM Date: 02/27/25 Loc: HO.ED Attending Dr: Ordering Physician: Selena Galo MD Date of Service: 02/27/25 Procedure(s): CT head/brain wo IV con Accession Number(s): [id number] cc: Shawna Gamble; Selena Galo MD Report Number: [id number]: Total DLP = 0.00 mGy-cm Reason for [...] in OV> 02/27/251906 DD/ 05 TD/TT: 02/27/251905 Dry Roller: [facility] External Provider IMG CT PROCEDURES Final Result * CT Chest w/ Contrast (02/27/2025 7:05 PM EDT) Only the most recent of2 resultswithin the time period is included. Anatomical Region Laterality Modality Body, Chest Computed Tomogra phy 02/27/2025 7:05 PM EDT Narrative 02/27/2025 7:06 PM EDT [place] [address] CT Scan Report Signed Patient: Sonia Marcano MR#: [id number] 5 : 1955 Acct:[id number] Age/Sex: 69 / F ADM Date: 02/27/25 Loc: HO.ED Attending Dr: Ordering Physician: Selena Galo MD Date of Service: 02/27/25 Procedure(s): CT chest w IV con Accession Number(s): [id number] cc: Shawna Gamble; Selena Galo MD Report Number: [id number]: Total DLP = 0.00 mGy-cm Reason for [...] in OV> 02/27/251905 DD/ 04 TD/TT: 02/27/251904 Dry Roller: Procedure Note Donotuseinterpreter, Image - 02/27/[address] [place] [address] [address] Scan Report Signed Patient: Italia Marcano#: [id number] 5 : 4Acct:[id number] Age/Sex: 69 / FADM Date: 02/27/25 Loc: .ED Attending Dr: Ordering Physician: Selena Galo MD Date of Service: 02/27/25 Procedure(s): CT chest w IV con Accession Number(s): [id number] cc: Shawna Gamble; Selena Galo MD Report Number: [id number]: Total DLP = 0.00 mGy-cm Reason for [...] in OV> 02/27/251905 DD/ 04 TD/TT: 02/27/251904 Dry Roller: [facility] External Provider IMG CT PROCEDURES Final Result * CT Cervical Spine w/o Contrast (02/27/2025 7:00 PM EDT) Only the most recent of2 resultswithin the time period is included. Anatomical Region Laterality Modality Spine, C-spine Computed Tomogra phy 02/27/2025 7:00 PM EDT Narrative 02/27/2025 7:01 PM EDT [place] [address] CT Scan Report Signed Patient: Sonia Marcano MR#: [id number] 5 : 1955 Acct:[id number] Age/Sex: 69 / F ADM Date: 02/27/25 Loc: HO.ED Attending Dr: Ordering Physician: Selena Galo MD Date of Service: 02/27/25 Procedure(s): CT cervical spine wo IV con Accession Number(s): [id number] cc: Shawna Gamble; Selena Galo MD Report Number: [id number]: Total DLP = 0.00 mGy-cm Reason for [...] or effusion at the lung apices. C1-2: Wnfo-uc-gnvsxmgl anterior osteoarthrosis of the xgwq-rm-nwcjurpq mineralized pannus formation surrounding the odontoid. IMPRESSION: 1. Grade 1 retrolisthesis of C5 over C6. 2. 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 3. No acute cervical spine fracture or dislocation. This document has been electronically signed by: Saeed Mcmahon MD on 02/27/2025 19:00:13 Dictated By: Saeed Mcmahon MD Signed By: <Electronically signed by Saeed Mcmahon MD in OV> 02/27/251900 DD/ 99 TD/TT: 02/27/251899 Dry Roller: Procedure Note Donotuseinterpreter, Image - 02/27/[address] [place] [address] [address] Scan Report Signed Patient: Sonia MarcanoMR#: [id number] 5 : 4Acct:[id number] Age/Sex: 69 / FADM Date: 02/27/25 Loc: HO.ED Attending Dr: Ordering Physician: Selena Galo MD Date of Service: 02/27/25 Procedure(s): CT cervical spine wo IV con Accession Number(s): [id number] cc: Shawna Gamble; Selena Galo MD Report Number: [id number]: Total DLP = 0.00 mGy-cm Reason for [...] or effusion at the lung apices. C1-2: Iowk-sa-rrrfxqdh anterior osteoarthrosis of the xyqe-mo-xaylzibw mineralized pannus formation surrounding the odontoid. IMPRESSION: 1. Grade 1 retrolisthesis of C5 over C6. 2. 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 3. No acute cervical spine fracture or dislocation. This document has been electronically signed by: aSeed Mcmahon MD on 02/27/2025 19:00:13 Dictated By: Saeed Mcmahon MD Signed By: <Electronically signed by Saeed Mcmahon MD in OV> 02/27/251900 DD/ 99 TD/TT: 02/27/251899 Dry Roller: [facility] External Provider IMG CT PROCEDURES Final Result * CT Abdomen Pelvis w/ Contrast (02/27/2025 6:59 PM EDT) Only the most recent of2 resultswithin the time period is included. Anatomical Region Laterality Modality Body, Pelvis, Abdomen Computed T omography 02/27/2025 6:59 PM EDT Narrative 02/27/2025 7:00 PM EDT [place] [address] CT Scan Report Signed Patient: Sonia Marcano MR#: [id number] 5 : 1955 Acct:[id number] Age/Sex: 69 / F ADM Date: 02/27/25 Loc: .ED Attending Dr: Ordering Physician: Selena Galo MD Date of Service: 02/27/25 Procedure(s): CT abdomen pelvis w IV con Accession Number(s): [id number] cc: Shawna Gamble; Selena Galo MD Report Number: [id number]: Total DLP = 0.00 mGy-cm Reason for [...] signed by Saeed Mcmahon MD in OV> 02/27/251899 DD/ 58 TD/TT: 02/27/251858 Dry Roller: Procedure Note Donotuseinterpreter, Image - 02/27/[address] [place] [address] [address] Scan Report Signed Patient: Italia Marcano#: [id number] 5 : 4Acct:[id number] Age/Sex: 69 / FADM Date: 02/27/25 Loc: HO.ED Attending Dr: Ordering Physician: Selena Galo MD Date of Service: 02/27/25 Procedure(s): CT abdomen pelvis w IV con Accession Number(s): [id number] cc: Shawna Gamble; Selena Galo MD Report Number: [id number]: Total DLP = 0.00 mGy-cm Reason for [...] signed by Saeed Mcmahon MD in OV> 02/27/251899 DD/ 58 TD/TT: 02/27/251858 Dry Roller: [facility] External Provider IMG CT PROCEDURES Final Result * Hold Lavender - Possible Hematology (02/27/2025 5:08 PM EDT) [facility] Hold Lavender - Possible Hematololgy SEE NOTE [facility] Comment:Specimen will be hel d untested for 8 hours. Call Hematologyif testing is desired. 02/27/2025 5:08 PM EDT 02/27/2025 5:21 PM EDT Generic External Data Provider HISTORICAL/NON OR DERABLE LABS Final Result Performing Organization Address [facility] de Phone Number [facility] [address] [place] [phone] * High Sensitivity Troponin I (02/27/2025 5:08 PM EDT) Only the most recent of2 resultswithin the time period is included. [facility] TROPONIN I HIGH SENSITIVITY <2.7 <3.5 - 17.0 ng/L [facility] Comment:The Goins high sens itivity Troponin-I results should beused in conjunction with other diagnostic information suchas ECG, clinical observations and information, and patientsymptoms to aid in the diagnosis of MT. 02/27/2025 5:08 PM EDT 02/27/2025 5:20 PM EDT Generic External Data Provider LAB BLOOD ORDERAB LES Final Result Performing Organization Address [facility] Co de Phone Number [facility] [address] [place] [phone] * (ABNORMAL) Sed Rate by Modified Reshmaren (02/27/2025 5:08 PM EDT) [facility] Erythrocyte Sedimentation Rate 23(H) 0 - 20 MM/HR [facility] Comment:Patients with polycy themia and many hemoglobin abnormalitiesmay have depressed sed rates whereas patients with anemiamay have elevated sed rates. 02/27/2025 5:08 PM EDT 02/27/2025 5:20 PM EDT Generic External Data Provider LAB BLOOD ORDERAB LES Final Result Performing Organization Address City/[facility]/ZIP Co de Phone Number [facility] [address] [place] [phone] * Lipase (02/27/2025 5:08 PM EDT) [facility] Lipase 38 8 - 78 U/L [facility] 02/27/2025 5:08 PM EDT 02/27/2025 5:20 PM EDT Generic External Data Provider LAB BLOOD ORDERAB LES Final Result Performing Organization Address [facility] Co de Phone Number [facility] [address] [place] [phone] * (ABNORMAL) Hepatic Function Panel (02/27/2025 5:08 PM EDT) [facility] Bilirubin, Total 0.3 0.0 - 1.0 mg/dL [facility] Bilirubin, Direct 0.1 0.0 - 0.5 mg/dL [facility] Aspartate Amino Transferase 35(H) 5 - 31 U/L [facility] Comment:Slight Hemolysis.Int erpret result with caution. Alanine Aminotransferase 24 0 - 31 U/L [facility] Total Protein 7.4 6.5 - 8.0 g/dL [facility] Albumin Level 4.3 3.5 - 5.0 g/dL [facility] Alkaline Phosphatase 158(H) 39 - 117 U/L [facility] 02/27/2025 5:08 PM EDT 02/27/2025 5:20 PM EDT us Generic External Data Provider LAB BLOOD ORDERAB LES Final Result Performing Organization Address City/[facility]/ZIP Co de Phone Number [facility] [address] [place] [phone] * (ABNORMAL) Basic Metabolic Panel (02/27/2025 5:08 PM EDT) Sodium 140 135 - 145 mmol/L [facility] Potassium 4.1 3.3 - 5.1 mmol/L [facility] Comment:Slight Hemolysis.Int erpret result with caution. Chloride 102 96 - 108 mmol/L [facility] Carbon Dioxide 28 22 - 29 mmol/L [facility] Anion Gap 14 12 - 20 [facility] Urea Nitrogen (BUN) 21(H) 9 - 16 mg/dL [facility] Creatinine, Serum 0.98 0.5 - 1.4 mg/dL [facility] Creatinine Clr Calc Pharmacy 45.3 [facility] Comment:Provided height and weight: 157.48 cm,61.235 kg.eGFR (calculated from the MDRD study equation) and eCrCl(calculated from the Cockcroft-Gault equation) are based ondifferent parameters and may not yield comparable results.If eCrCl result is absurd, please check patient'sheight/weight. Estimated Glomerular Filt Rate 56 [facility] Comment:Chronic Kidney Disea se: Estimated GFR < 60 mL/min/1.88s0Phflkw Kidney Disease: Estimated GFR < 15 mL/min/1.73m2 Glucose 120(H) 60 - 115 mg/dL [facility] Calcium 9.7 8.4 - 10.2 mg/dL [facility] 02/27/2025 5:08 PM EDT 02/27/2025 5:20 PM EDT us Generic External Data Provider LAB BLOOD ORDERAB LES Final Result Performing Organization Address City/[facility]/ZIP Co de Phone Number [facility] [address] [place] [phone] * Prothrombin Time-INR (02/12/2025 5:02 PM EDT) Prothrombin Time 11.8 10.9 - 12.4 SEC [facility] INTERNATIONAL NORM RATIO 1.0 0.9 - 1.1 [facility] Comment:INTERNATIONAL NORMAL IZED RATIO (INR) REFERENCE [...] ORDERAB LES Final Result Performing Organization Address City/State/[facility] Co de Phone Number [facility] [address] [place] [phone] * XR Hip 2 or 3 Views Right (01/08/2025 5:00 PM EDT) Anatomical Region Laterality Modality Lower Extremities, Hip Right Radiograp hic Imaging 01/08/2025 5:00 PM EDT Narrative 01/08/2025 5:27 PM EDT [address] [address] ANIay Report Signed Patient: Sonia Marcano MR#: [id number] 5 : 1955 Acct:[id number] Age/Sex: 69 / F ADM Date: 01/08/25 Loc: ALYSHA Attending Dr: Shawna Gamble MD Ordering Physician: Shawna Gamble Date of Service: 01/08/25 Procedure(s): XR hip RT min 2V Accession Number(s): [id number] cc: Shawna Gamble EXAMINATION: XR HIP, RIGHT [...] 01/08/25 1724 DD/ 1700 TD/TT: 01/08/25 1715 Dry Roller: Procedure Note Donotuseinterpreter, Image - 01/08/2025 [place] [address] XRay Report Signed Patient: Sonia MarcanoMR#: [id number] 5 : 1955cct:[id number] Age/Sex: 69 / FADM Date: 01/08/25 Loc: HO.ROLA Attending Dr: Shawna Gamble MD Ordering Physician: Shawna Gamble Date of Service: 01/08/25 Procedure(s): XR hip RT min 2V Accession Number(s): [id number] cc: Shawna Gamble EXAMINATION: XR HIP, RIGHT [...] 01/08/25 1724 DD/ 1700 TD/TT: 01/08/25 1715 Dry Roller: Shawna Gamble MD IMG XR PROCEDURES Final Result * (ABNORMAL) POCT HGB A1C (01/08/2025 3:48 PM EDT) Hemoglobin A1C 8.3(A) 4.0 - 5.7 % Blood 01/08/2025 3:48 PM EDT Shawna Gamble MD POINT OF CARE TEST ENTER/EDIT ORDERABLES Final Result * (ABNORMAL) Lipid Panel, Standard (10/20/2024 10:23 AM EDT) Triglycerides 98 <150 mg/dL [facility] Comment:Desirable Triglyceri de: less than 150 mg/dLBorderline High Triglyceride 150-199 mg/dLHigh Triglyceride: 200-499 mg/dLVery High Triglyceride: greater than or equal to 5OO mg/dL Cholesterol 103 <200 mg/dL [facility] Comment:Desirable Cholestero l: less than 200 mg/dLBorderline High Cholesterol: 200-239 mg/dLHigh Cholesterol: greater than 239 mg/dL LDL Cholesterol Calculated 44 <100 mg/dL [facility] Comment:Desirable LDL: less than 100 mg/dLNear Optimal/Above Optimal LDL: 110- 129 mg/dLBorderline High LDL: 130-159 mg/dLHigh LDL: 160-189 mg/dLVery High LDL: greater than or equal to 190 mg/dL HDL Cholesterol 40(L) >40 mg/dL [facility] Comment:Desirable HDL: great er than 40 mg/dL Note: This HDL assay may give artificially low results in patients with liver disease. Blood Venous blood specimen / Unknown 10/20/2024 10:23 AM EDT 10/20/2024 10:23 AM EDT us Shawna Gamble MD LAB BLOOD ORDERABLES Final Res ult Performing Organization Address [facility] de Phone Number [facility] [address] [place] [phone] * (ABNORMAL) Albumin, Random Urine W/Creatinine (10/20/2024 10:18 AM EDT) Creatinine, Urine 54.62 mg/dL [facility] Microalbumin Urine 75.0 mg/L [facility] Microalbum Creatinine Ratio Ur 137.3(H) <30 ug/mg cr [facility] Comment:Albumin/Creatinine R atio Reference Ranges: Normal: < 30 ug/mg creatinine Microalbuminuria: 30 - 300 ug/mg creatinineClinical Albuminuria: > 300 ug/mg creatinine Urine (Urine, Random) 10/20/2024 10:18 AM EDT 10/20/2024 11:55 AM EDT us Shawna Gamble MD LAB URINE ORDERABLES Final Res ult Performing Organization Address [facility] Co de Phone Number [facility] [address] [place] [phone] * BI Mammogram Screening Tomosynthesis Bilateral (06/30/2024 2:15 PM EST) Anatomical Region Laterality Modality Breast Bilateral Mammography 06/30/2024 2:15 PM EST Narrative 07/08/2024 1:56 PM EST [address] [place] [address] Mammography Report Signed Patient: Sonia Marcano MR#: [id number] 5 : 1955 Acct:[id number] Age/Sex: 68 / F ADM Date: 06/30/24 Loc: MAMMO Attending Dr: Shawna Gamble MD Ordering Physician: Shawna Gamble Results: 1Negative Date of Service: 06/30/24 Follow Up: 1 Year From Orig inal Mammogram Procedure(s): MM tomosynthesis screening BI Accession Number(s): [id number] cc: Shawna Gamble EXAMINATION: MM SCREENING DIGITAL [...] 07/08/24 1353 DD/ 1415 TD/TT: 06/30/24 1426 Dry Roller: Procedure Note Donotuseinterpreter, Image - 07/08/2024 [facility] [address] [place] [address] Mammography Report Signed Patient: Sonia Marcano#: [id number] 5 : 4Acct:[id number] Age/Sex: 68 / FADM Date: 06/30/24 Loc: JENNIFER Attending Dr: Shawna Gamble MD Ordering Physician: Tera Gambleults: 1Negative Date of Service: 06/30/24Follow Up: 1 Year From Orig inal Mammogram Procedure(s): MM tomosynthesis screening BI Accession Number(s): [id number] cc: Shawna Gamble EXAMINATION: MM SCREENING DIGITAL [...] 07/08/24 1353 DD/ 1415 TD/TT: 06/30/24 1426 Dry Roller: Shawna Gamble MD IMG BI PROCEDURES Edited Resul t - Final * Hepatitis C Ab (10/30/2022 9:18 AM EDT) Hepatitis C Antibody Nonreactive Nonreactive [facility] Comment:Antibodies to HCV no t detected; does not exclude early acuteHCV infection. 10/30/2022 9:18 AM EDT 10/30/2022 9:18 AM EDT [facility] External Provider LAB BLO OD ORDERABLES Final Result [facility] [address] [place] [phone] * Hm Colonoscopy (10/11/2020 9:13 AM EDT) Historical Provider HEALTH MAINTENANCE Final Result from Last 3 Months or Most Recently Relevant to Health Maintenance Additional Health Concerns Active Problems Noted Date [...] 04/06/2025 Patient has chronic kidney disease 04/06/2025 Insurance [facility] LONG-TERM OPTIONS (O D-SNP) [place] [id number] [facility] Care Teams Stacker Attendant Relationship Specialty Start Date End Date Shawna Gamble MD [address] [place] [address] [place] [address] PCP - General Family Medicine 05/13/22 [employer] 01/22/25
--- OUTSIDE RECORDS SUMMARY | 2025-04-06 14:29 | XMS_ITS | Encounter Summary ---
Author Organization [employer] Address [address] [facility] 7t [place] [address] Care Team Providers Care Manager Medical Device Name Role Phone Shawna Gamble MD Primary Care Provider [phone] Reason for Visit * Reason Onset Date Comments Nurse Triage 04/02/2025 Encounter Details Date Type Department Care Team ([facility] st Contact Info) Description 04/02/2025 Telephone [facility] [address] [place], [place] [phone] Shawna Gamble MD [address] [place], [place] [phone] Nurse Triage Social History Tobacco Use Types [...] encounter Miscellaneous Notes * Telephone Encounter - Preethi Jeffery RN - 04/02/2025 4:00 PM EST Return call to pt, pt had called triage line to report left 3rd toe swelling and redness x 1 day. Pt denies fever, pain. Pt has history of diabetic neuropathy. Pt denies any open areas. Scheduled to see Amy Camara tomorrow at 2p. Protocol Used: No Protocol Available (Adult) Protocol-Based Disposition: See in Office or Video Visit within 3 Days Video visit not offered Positive Triage Question: * Nursing judgment * All higher-acuity triage questions were negative. Care Advice Discussed: * Reasons To Call Back - New symptoms develop - You become worse * Telephone Encounter - Jason Tariq - 04/02/2025 3:04 PM EST Symptom: Fingernail Symptoms Outcome: Schedule an urgent appointment (within 1 hour) or talk to a nurse or provider soon Reason: Severe pain now Please contract pt at [phone] Irish spreak documented in this encounter Plan of Treatment [...] has chronic kidney disease No Jason Tariq documented as of this encounter Visit Diagnoses Not on filedocumented in this encounter Additional Health Concerns Active Problems Noted Date Diagnosed Date Help patients manage their type 2 diabetes 04/02 Weekly blood pressure task 04/02/2025 Help patients manage their type 2 diabetes 04/02 Patient has chronic kidney disease 04/02/2025 Weekly blood pressure task 04/02/2025 Patient has chronic kidney disease 04/02/2025 Assessment Noted Time PHQ-9 Depression Total Score: 6 10/19/19 25 11:41 AM EDT documented as of this encounter Care Teams Manager Medical Device Relationship Specialty Start Date End Date Shawna Gamble MD [address] [place] [address] PCP - General Family Medicine 05/13/22 [employer] 01/22/25 documented as of this encounter
--- OUTSIDE RECORDS SUMMARY | 2025-04-06 14:29 | XMS_ITS | Encounter Summary ---
Author Organization [employer] Address [address] [facility] 7t [place] [address] Care Team Providers Care Slime Plant Operator Helper Name Role Phone Shawna Gamble MD Primary Care Provider [phone] Encounter Details Date Type Department Care Team ([facility] st Contact Info) Description 01/06/2024 Orders Only [facility] [address] [place] [address] Anisha Mc MD [address] [place] [address] Social History Tobacco Use Types Packs/Day Years [...] documented as of this encounter Care Teams Slime Plant Operator Helper Relationship Specialty Start Date End Date Shawna Gamble MD [address] [place] [phone] PCP - General Family Medicine 05/13/22 [employer] 01/22/25 documented as of this encounter
--- OUTSIDE RECORDS SUMMARY | 2025-04-06 14:30 | XMS_ITS | Encounter Summary ---
Author Organization [employer] Address [address] [facility] 7t [place] [address] Care Team Providers Care Business Job Titles Name Role Phone Shawna Gamble MD Primary Care Provider [phone] Reason for Visit * Reason Comments Med Refill Encounter Details Date Type Department Care Team ([facility] st Contact Info) Description 02/18/2023 Refill [facility] [address] [place] [address] Shawna Gamble MD [address] [place] [address] Primary insomnia Social History Tobacco Use Types [...] sleep documented in this encounter Care Teams Business Job Titles Relationship Specialty Start Date End Date Shawna Gamble MD [address] [place] [address] PCP - General Family Medicine 05/13/22 [employer] 01/22/25 documented as of this encounter
--- OUTSIDE RECORDS SUMMARY | 2025-04-06 14:30 | XMS_ITS | Encounter Summary ---
Author Organization [employer] Address [address] [facility] 7t [place] [address] Care Team Providers Care Turbinated Bone Grinder Name Role Phone Shawna Gamble MD Primary Care Provider [phone] Encounter Details Date Type Department Care Team ([facility] st Contact Info) Description 09/27/2023 Orders Only [facility] MEDICINE [address] [place] [address] ProviderShahrzad MD Social History Tobacco Use Types [...] on filedocumented in this encounter Care Teams Turbinated Bone Grinder Relationship Specialty Start Date End Date Shawna Gamble MD [address] [place] [address] PCP - General Family Medicine 05/13/22 [employer] 01/22/25 documented as of this encounter
--- OUTSIDE RECORDS SUMMARY | 2025-04-06 14:30 | XMS_ITS | Encounter Summary ---
Author Organization [employer] Address [address] [place] [address] 7t [place] [address] Care Team Providers Care Tester Operator Name Role Phone Shawna Gamble MD Primary Care Provider Reason for Visit * Reason Onset Date Comments rs appt 03/29/2023 Encounter Details Date Type Department Care Team ([facility] st Contact Info) Description 03/29/2023 Telephone [facility] [address] [place] [address] Uriel Jacobs DDS [address] [place] [address] rs appt Social History Tobacco Use Types [...] t he electric, gas, oil or water [employer] threatened to shut off services in your [...] on filedocumented in this encounter Care Teams Tester Operator Relationship Specialty Start Date End Date Shawna Gamble MD [address] [place] [phone] PCP - General Family Medicine 05/13/22 [employer] 01/22/25 documented as of this encounter
--- OUTSIDE RECORDS SUMMARY | 2025-04-06 14:30 | XMS_ITS | Encounter Summary ---
Author Organization [employer] Address [address] [facility] 7t [place] [address] Care Team Providers Care Judicial Administrative Assistant Name Role Phone Shawna Gamble MD Primary Care Provider [phone] Encounter Details Date Type Department Care Team ([facility] st Contact Info) Description 03/15/2023 Orders Only [facility] [address] [place] [address] Shawna Gamble MD [address] [place] [address] Social History Tobacco Use Types Packs/Day Years [...] on filedocumented in this encounter Care Teams Judicial Administrative Assistant Relationship Specialty Start Date End Date Shawna Gamble MD [address] [place] [address] PCP - General Family Medicine 05/13/22 [employer] 01/22/25 documented as of this encounter
--- OUTSIDE RECORDS SUMMARY | 2025-04-06 14:30 | XMS_ITS | Encounter Summary ---
Author Organization [employer] Address [address] [facility] 7t [place] [address] Care Team Providers Care Bagman/Woman Name Role Phone Shawna Gamble MD Primary Care Provider [phone] Reason for Visit * Reason Onset Date Comments Nurse Triage 04/06/2025 Encounter Details Date Type Department Care Team ([facility] st Contact Info) Description 04/06/2025 Telephone [facility] MEDICINE [address] [place], [place] [phone] Shawna Gamble MD [address] [place], [place] [phone] Nurse Triage Social History Tobacco Use Types [...] encounter Miscellaneous Notes * Telephone Encounter - Taylor Watson RN - 04/06/2025 11:41 AM EST T/C to pt via [employer] #[id number]. Pt c/o 01/24 pain to great toe of left foot. Reportstoe is a little red. Reports that her toenail is now black. Denies swelling, drainage. Reports she is soaking foot in epsom salts 3-4 times per day and placing cotton under toenail as directed in office visit 04/03/25. Pt denies fever. States she would like to be re-evaluated as she is diabetic. Recommended that pt return to [facility] for evaluation. Pt reports agreement with plan. Protocol Used: Toenail - Ingrown (Adult) Protocol-Based Disposition: See in Office or Video Visit within 3 Days Video visit not offered Positive Triage Questions: Severe pain * Diabetes mellitus * Patient wants to be seen * Ingrown toenail * All higher-acuity triage questions were negative. Care Advice Discussed: * Reasons To Call Back - Not improved over 7 days - You become worse * Telephone Encounter - Luis Manuel Smith - 04/06/2025 11:05 AM EST Symptom: Toenail Symptoms Outcome: Schedule an urgent appointment (within 1 hour) or talk to a nurse or provider soon Reason: Severe pain now The caller accepted this outcome. Contact pt at [phone] (lao) documented in this encounter Plan of Treatment [...] has chronic kidney disease No Zuleyka Jordan, BENNIE Patient has chronic kidney disease Care Plan Patient has chronic kidney disease No Zuleyka Jordan, BENNIE Weekly blood pressure task Care Plan Weekly [...] documented as of this encounter Care Teams Bagman/Woman Relationship Specialty Start Date End Date Shawna Gamble MD [address] [place] [phone] PCP - General Family Medicine 05/13/22 [employer] 01/22/25 documented as of this encounter
--- OUTSIDE RECORDS SUMMARY | 2025-04-06 14:30 | XMS_ITS | Encounter Summary ---
Author Organization [employer] Address [address] [facility] 7t [place] [address] Care Team Providers Care Furnace Mechanic Name Role Phone Shawna Gamble MD Primary Care Provider [phone] Reason for Visit * Reason Comments Med Refill Encounter Details Date Type Department Care Team ([facility] st Contact Info) Description 05/07/2023 Refill [facility] [address] [place] [address] Shawna Gamble MD [address] [place] [address] Social History Tobacco Use Types Packs/Day Years [...] on filedocumented in this encounter Care Teams Furnace Mechanic Relationship Specialty Start Date End Date Shawna Gamble MD [address] [place] [address] PCP - General Family Medicine 05/13/22 [email or web address] 01/22/25 documented as of this encounter
--- OUTSIDE RECORDS SUMMARY | 2025-04-06 14:30 | XMS_ITS | Encounter Summary ---
Author Organization [employer] Address [address] [facility] [facility] [address] [place] [address] Care Team Providers Care Diabetes Clinical Manager Name Role Phone Shawna Gamble MD Primary Care Provider [phone] Reason for Visit * Reason Comments Med Refill Encounter Details Date Type Department Care Team ([facility] st Contact Info) Description 10/14/2024 Refill [facility] [address] [place] [address] Uriel Jacobs DDS [address] [place] [address] Social History Tobacco Use Types Packs/Day Years [...] documented as of this encounter Care Teams Diabetes Clinical Manager Relationship Specialty Start Date End Date Shawna Gamble MD [address] [place] [phone] PCP - General Family Medicine 05/13/22 [employer] 01/22/25 documented as of this encounter
--- OUTSIDE RECORDS SUMMARY | 2025-04-06 14:30 | XMS_ITS | Encounter Summary ---
Author Organization [employer] Address [address] [facility] [address] [place] [address] Care Team Providers Care Vertical Lathe Operator Name Role Phone Shawna Gamble MD Primary Care Provider [phone] Reason for Visit * Reason Comments Med Refill Encounter Details Date Type Department Care Team ([facility] st Contact Info) Description 02/26/[address] [facility] [address] [place] [address] Shawna Gamble MD [address] [place] [address] Primary insomnia Social History Tobacco Use Types [...] sleep documented in this encounter Care Teams Vertical Lathe Operator Relationship Specialty Start Date End Date Shawna Gamble MD [address] [place] [address] PCP - General Family Medicine 05/13/22 [employer] 01/22/25 documented as of this encounter
--- OUTSIDE RECORDS SUMMARY | 2025-04-06 14:30 | XMS_ITS | Data Portability ---
Author Organization [facility], [facility] Address [address] [place] [address] Care Team Providers Care Learning Support Assistant Name Role Phone HIM CCA OTHER Assessment Encounter Date Assessment Date Assessment LastModified by Organization Details LastModified Time 10/21/2023 10/21/2023 I provided real -time medical direction via phone for this encounter, and was available for additional phone based assistance as needed. I have reviewed and agree with the Assessment and Plan as documented by the Cage Maker. We discussed the diagnostic uncertainty of home [...] son who agreed to take her to [place] ER or urgent care the following day Advised if develops worsening of any symptoms to call 911- verbalized understanding of instruction [email or web address] Not available 10/22/2023 23:27:07 01/01/2025 01/01/2025 I provided real -time medical direction via phone for this encounter and was available for additional phone-based assistance as needed. I have reviewed and agree with the Assessment and Plan as documented by the Cage Maker. Patient given the opportunity to ask questions. Our service contacted for an assessment of: dizziness As per above, patient with chronic complaints of dizziness, weakness. Has known anemia. Per supervisor mill on the scene, VSS, AF Please read the supervisor mill note for their exam findings. ECG reviewed, [...] to the ED. Expect call made to [facility].. Mechanism of fall was mechanical and accidental and not related to complaints we were called to assess. Allergies: Reviewed [id number] Not available 01/01/2025 18:49:56 Plan of Treatment Reminders Order Date Submit Date Provider Last Modified By Organization Details Last Modified Time Details Appointments None recorded. Lab BMP, serum or plasma 2024 025 [facility], [address] [place] [address], [phone] 5 20:32:06 culture, urine 2023 024 [place] [facility] (Centralized Electronic Ordering - All Locations), Patient Can Go To The Location Of Their Choice, [id number] 4 12:06:01 urinalysis, dipstick [email or web address], [address] 14:27:04 culture, urine 2023 024 [place] [facility] (Centralized Electronic Ordering - All Locations), Patient Can Go To The Location Of Their Choice, [facility] 4 10:06:31 Referral None recorded. Procedures None recorded. Surgeries None recorded. Imaging electrocard iogram 2024 025 [email or web address] [facility], [address] [place] [address], [address] 5 16:47:19 electrocard iogram 2023 024 [email or web address], [address] 4 23:30:14 Medication Orders nitrofurant oin macrocrysta l 100 mg capsule 2023 024 [email or web address] [id number], [address] [place], [address], 4 16:12:35 Patient TargetsNo targets recorded. Patient InstructionsNo instructions recorded. Reason for Referral None Reported. Results Created Date Observation Date Name Description Value Unit Range Abnormal Flag Note LastModifiedBy Organization Detail LastModifiedTime 11/08/19 24 11/10/2023 URINE CULTU RE, ROUTI NE urine culture, routine Final report Not Available [facility] ([facility]) [address] [place], [address], 11/10/2023 10:06:30 11/08/19 24 11/10/2023 URINE CULTU RE, ROUTI NE result 1 COMMEN T Mixed uroge nital stevan 25,00 0-50, 000 colon y formi ng units per mL Not Available [facility] ([facility]) [address] [place], [address], 11/10/2023 10:06:30 12/14/19 24 12/18/2023 URINE CULTU RE,CO MPREH ENSIV E urine culture,comp rehensive Final report Not Available [facility] ([facility]) [address] [place], [address], 12/18/2023 12:06:01 12/14/19 24 12/18/2023 URINE CULTU RE,CO MPREH ENSIV E result 1 COMMEN T Mixed uroge nital stevan 10,00 0-25, 000 colon y formi ng units per mL Not Available [facility] ([facility]) [address] [place], [address], 12/18/2023 12:06:01 12/14/19 24 12/14/2023 urina lysis , dipst ick Leukocytes + Not Available Main - [facility] [address] [place] [address], [address] 12/14/2023 14:26:25 12/14/19 24 12/14/2023 urina lysis , dipst ick Nitrite negati ve Not Available Main - Inst ed [address] [place] [address], [phone] 12/14/2023 14:26:25 12/14/19 24 12/14/2023 urina lysis , dipst ick Protein + Not Available Main - Ins [address], [place], [address] 12/14/2023 14:26:25 12/14/19 24 12/14/2023 urina lysis , dipst ick Blood +++ Not Available Main - Ins [address], [address] 12/14/2023 14:26:25 10/22/19 24 10/22/2023 elect rocar diogr am No observ ation record ed. [email or web address] [facility] - [address], [address] 10/22/2023 23:30:13 01/02/20 25 01/01/2025 elect rocar diogr am No observ ation record ed. [email or web address] [address], [address] 01/01/2025 20:31:45 Result Notes None recorded. Medical Equipment None Reported. Allergies Allergen ID Allergen Name Allergen Category Reaction Reaction Severity Criticality Documentation Date Start Date Code Code System Note Provider Name and Address Organization Details Recorded Time 55048 cortisone medicatio n Not available Not available Not available 01/01/2025 2878 Rx[facility] Not Available [facility] 15:07:58 92063 metformin medicatio n Not available Not available Not available 01/01/2025 6809 [facility] 5 15:07:58 54015 oxycodone medicatio n Not available Not available Not available 01/01/2025 7804 RxNorm Not Available [facility] 5 15:07:58 50482 tramadol medicatio n Not available Not available Not available 01/01/2025 03229 RxNorm Not Available [facility] 5 15:07:58 361 Product containin g penicilli n (product) medicatio n Not available Not available Not available 08/28/2021 53064 8001 SNOMED Not Available [facility] 4 03:39:31 362 Bactrim medicatio n Not available Not available Not available 08/28/2021 15349 9 RxNorm Not Available [facility] - production 4 03:39:31 5193 Toradol medicatio n Not available Not available Not available 10/22/2023 21761 RxNorm Judy Miller MD [address] [facility],[address], [place], [address], [employer] 4 23:23:39 5194 acetamino phen / oxycodone medicatio n Not available Not available Not available 10/22/2023 59537 3 RxNorm Judy Miller MD [address] [facility],[address], [place], [address], [employer] 4 23:23:48 5195 morphine medicatio n Not available Not available Not available 10/22/2023 7052 RxNorm Not Available [facility] 4 03:39:31 5196 codeine medicatio n Not available Not available Not available 10/22/2023 2670 RxNorm Judy Miller MD [address] [place] [address],[address], [place], [address], [employer] 4 23:24:01 5735 azithromy fabien medicatio n Not available Not available Not available 12/14/2023 79386 RxNorm Not Available [facility] 4 03:39:31 5736 acetamino phen medicatio n Not available Not available Not available 12/14/2023 161 RxNorm Not Available [facility] 4 03:39:31 5737 doxycycli ne Not available Not available Not available Not available 12/14/2023 3640 RxNorm Not Available [facility] - production 4 03:39:31 5738 hydrocort isone medicatio n Not available Not available Not available 12/14/2023 5492 RxNorm Yolanda Millan MD [address] [facility],[address], [place], [address], [employer] 4 14:24:20 7747 ketorolac medicatio n Not available Not available Not available 03/14/2024 88190 RxNorm Not Available [facility] - production 4 03:39:31 Medications Name Sig Start Date Stop Date Status Note LastModified by Organization Details LastModified Time vitamin d3 10,000 iu softgels TAKE 1 CAPSULE BY MOUTH TWICE WEEKLY FOR 3 MONTHS active Not Available Not Available No t Available vitamin d3 cap 02745iky active Not Available Not Available Not Available [...] t Available Vitals Date Recorded Oxygen saturation Body weight Heart rate Body temperature Respiratory rate Heart rate Systolic And Diastolic Systolic And Diastolic Provider Name and Address Organization Details Last Updated DateTime 4 98 % 82657.7 36 g 76 /min 98.2 [degF] 16 /min 84 /min 104/62 mm[Hg] 138/72 mm[Hg] Not Available [facility] - production 4 17:48:30 Date Recorded Body temperature Oxygen saturation Respiratory rate Heart rate Systolic And Diastolic Provider Name and Address Organization Details Last Updated DateTime 4 97.4 [degF] 96 % 16 /min 79 /min 161/77 mm[Hg] Not Available [facility] - production 4 19:28:53 Date Recorded Body temperature Body weight Oxygen saturation Heart rate Respiratory rate Oxygen saturation Body weight Heart rate Respiratory rate Body temperature Heart rate Oxygen saturation Provider Name and Address Organization Details Last Updated DateTime 3 97.8 [degF] 94333.0 56 g 98 % 78 /min 18 /min 98 % 00203.0 56 g 78 /min 18 /min 97.8 [degF] 78 /min 98 % Not Available [facility] - production 3 19:32:13 Date Recorded Respiratory rate Body weight Body temperature Systolic And Diastolic Systolic And Diastolic Systolic And Diastolic Provider Name and Address Organization Details Last Updated DateTime 3 18 /min 47285.0 56 g 97.8 [degF] 136/84 mm[Hg] 136/84 mm[Hg] 136/84 mm[Hg] Not Available [facility] - production 3 19:32:13 Date Recorded Body temperature Heart rate Respiratory rate Oxygen saturation Systolic And Diastolic Provider Name and Address Organization Details Last Updated DateTime 4 97.5 [degF] 94 /min 18 /min 95 % 138/66 mm[Hg] Not Available [facility] - production 4 14:33:56 Date Recorded Body temperature Respiratory rate Heart rate Oxygen saturation Systolic And Diastolic Provider Name and Address Organization Details Last Updated DateTime 5 97.4 [degF] 18 /min 73 /min 97 % 98/58 mm[Hg] Not Available [employer] 5 16:45:43 Social History None recorded. Functional [...] Note 1001 Judy Miller MD Main - [address] [address] 08/28/2021 18:50:39 01/22/2022 18:02:00 Nausea and vomiting 14721007 R11.2 w/ some mild dehydratio n and weakness 2092 William Ashby MD Main - [address] [address] 10/25/2021 17:53:19 02/09/2022 11:43:09 Mild dehydration 9596826264 108 E86.0 Sxs similar to past GI episodes; no fevers/chi lls. Unable to get CMP to check Instrument Adjuster and K+ today. Agrees to IVF and IV Zofran 4255 Judy Miller MD Main - instED [address] [place], [place] [address] 02/10/2022 16:22:29 02/16/2022 13:49:15 Chest pain 32285796 R07.9 resolved- most likely anxiety, however patient [...] 911. She verbalized understand ing of same 10997 URIEL JETT MD Main - instED [address] [place] [address] 0 09/18/2022 13:17:20 09/21/2022 10:09:15 Viral gastroenteritis [id number] A08.4 92446 Lopez Choe MD Main - instED [address] [place] [address] 10/05/2022 13:33:35 10/06/2022 14:51:40 Nausea and vomiting 21140097 R11.2 30686 Mary Carmen Connell MD Main - instED [address] [place] [address] 10/23/2022 11:56:24 10/26/2022 13:09:06 COVID-19 683091610 U07.1 63866 Ana Valdivia MD Main - instED [address] [place] [address] 11/10/2022 18:36:52 11/11/2022 08:50:45 Lethargy 451582429 R53.83 pt with acute on chronic nausea/vom [...] not a medical emergency, I and the supervisor mill were concerned about FTT and that she likely needs evaluation in the ED and admission to diagnose underlying process and establish a more durable plan for nutrition. Pt and family elected to go to the ED tonight. 37730 Judy Miller MD Main - instED [address] [place] [address] 10/21/2023 17:48:07 09/15/2024 00:13:09 Fall W19.XXXA Secondary to dizziness intermitte ntly. Due to possible dehydratio n I advised holding chlorthali done 25 mg for 48 hours until rechecked 12261 Carmen Vo MD Main - instED [address] [place] [address] 11/08/2023 19:28:51 11/09/2023 16:11:48 Urinary symptoms 391118830 R39.9 68 year old female with a [...] assessment and plan as documented by the supervisor mill. I provided real-time medical direction for this encounter and was immediatel y available to provide additional phone-base d assistance as needed. We discussed the diagnostic uncertaint y of home visits and associated risks. We discussed the need to seek care urgently/e mergently in the setting of any new or worsening symptoms. 96494 Yolanda Millan MD Main - [email or web address]ED [address] [place] [address] 12/14/2023 13:57:08 12/15/2023 10:57:43 Urinary symptoms 333745175 R39.9 Evaluation in the field was performed by my supervisor mill colleague, as noted above, I provided real-time [...] shortness of breath, cough, chest pain, fever. 87076 Sharon Lee MD [email or web address] ED Medical [facility] [address] [place] [address] 01/01/2025 16:45:33 01/01/2025 21:09:58 Dizziness 683128280 R42 03011 Accidental fall 55110018 2 W19.XXXA 2240726 Health Concerns Section Related Observation LastModified by Organization Detai ls LastModified Time None Recorded Concern Status LastModified by Organization Details LastModified Time None Recorded Advance Directives Directive None Recorded Payers Insurance Date Sequence Insurance Name Policy Number Policy Swartz Covered Member ID Swartz Member ID Guarantor Name 04/28/2024 1 [facility] - DOS PRIOR TO 2022 - DUAL ELIGIBLE (MEDICARE REPLACEMENT/ADV ANTAGE - HMO) Sonia Marcano [id number] Sonia Marcano 01/01/2025 1 [facility] - DOS ON OR AFTER 2022 - DUAL ELIGIBLE - SENIOR LIVING OPTIONS AND ONE CARE (MEDICARE REPLACEMENT/ADV ANTAGE - HMO) Sonia Marcano [id number] Sonia Marcano Notes Date Note Type Note [...] .................... .................... .................... .................... .................... .................... . Cage Maker Note From Mike Pham: Pt presents A@Ox4 [...] Abdomen pain upon palpation all 4 quads. [facility] contacted and advised that pt be seen in the ER. Family agreed and decided they wanted 911 called for ambulance for her. Pt and family requested transport to [facility] ambulance arrived on scene and pt care was transferred. Report given Cage Maker Allergies: Penicillin, Bactrim, Ketorolac .................... .................... .................... .................... .................... .................... .................... . Disposition: Fulfilled Ana Valdivia MD [address] [place] [address],[address], [place], [address] [employer] 11/10/2022 22:25:14 10/21/2023 text/html ROS as noted in the [facility] CRC Nurse Triage Notes (Gypsy Moeller): Reason For Request: PT fell and scraped her knee/pain/dizziness caused the fall Chief Complaints: Falls, Injury, Pain PMH: Diabetes, CHF, Hypertension, Heart Disease Allergies: Penicillin, Bactrim, Ketorolac Comments: Son calling up to report her family member fall today and scraped her knee, was dizzy prior to fall. Currently member is with her LIFE SKILLS COORDINATOR at this time but may be alone after her LIFE SKILLS COORDINATOR shift is over. Son reports Sami speaking onlyNo recent falls, no extreme pain, no acute distress at this time.Son did not elaborate more on this Negra AVERY .................... .................... .................... .................... .................... .................... .................... . Cage Maker Note From Vero Mike: Pt co knee pain from fall. Pt [...] Pt education on signs indicating the ER. Cage Maker Allergies: Penicillin, Bactrim, Ketorolac .................... .................... .................... .................... .................... .................... .................... . Disposition: Fulfilled Judy Miller MD [address] [place] [address],[address], [place], [address], [employer] 10/22/2023 23:30:26 11/08/2023 text/html CRC Nurse Triage Notes (Belkis Rosales): Reason For Request: UTI Chief Complaints: UTI/Pyelonephritis, Pain PMH: Diabetes, CHF, Hypertension, Heart Disease Allergies: Penicillin, Bactrim, Ketorolac Comments: Mechanical Tech verified the member's name//address and phone number. Member is a 68 yr old female, nicaraguan speaking a/o 3 PMH DM> CHF> HTN [...] s/s and seek emergency treatment if needed Cage Maker POC Test Results from [employer] scherer - ALS Urine Dipstick (19:27:00) Urine leukocytes: 2+ BRO Urine nitrites: - NIT Urine urobilinogen: - URO Urine protein: + PRO Urine pH: 6.0 pH Urine blood: - BLO Urine specific gravity: 1.010 SG Urine ketones: - KET Urine bilirubin: - ALEXIS Urine glucose: - GLU .................... .................... .................... .................... .................... .................... .................... . Cage Maker Note From Luluabdielbrandt Art: Pt reports two weeks ago, while in [...] closely, f/u with PCP. Red flags reviewed. [facility] Lab Orders: culture, urine: Performed .................... .................... .................... .................... .................... .................... .................... . Disposition: Fulfilled Carmen Vo MD [address] [facility],[address], [place], [address], [employer] 11/08/2023 21:51:23 12/14/2023 text/html HPI: Call returned to Sonia Marcano to triage below. Reports having pain with passing urination x 1 day. Per pt not dark, odor or with blood. Per pt feeling urgency. Pt denies any pelvic pain, flank pain, n/v or fever. Pt denies any vaginal discharge. Pt unable to come into [facility]. AGrees to [email or web address] eval to rule out UTI. .................... .................... .................... .................... .................... .................... .................... . CRC Nurse Triage Notes (Rolanda Falk): Chief Complaints: UTI/Pyelonephritis PMH: COPD/Asthma, Diabetes, CHF, Hypertension, Heart Disease Allergies: Acetaminophen, Azithromycin, Doxycycline, Trimethoprim-Sulfame thoxazole, Morphine, Penicillin, Bactrim, Ketorolac Other Allergies: Cortisone, Ketorolac, Metformin, Morphine, Oxycodone, Pioglitazone, tramadol Comments: HPI reviewed. No further information needed to process visit. Cage Maker Organization Information for Tamara Saldaña Business Legal Name: [employer]. Address: [address] [place] [address], Customer Service Representative: Swapnil STEIN No.: [id number] Cage Maker POC Test Results from Tamara Saldaña Urine Dipstick (1) [14:40] Urine leukocytes: 125 BRO Urine nitrites: - NIT Urine urobilinogen: 0.2 URO Urine protein: 100++ PRO Urine pH: 7.5 pH Urine blood: 50 BLO Urine specific gravity: 1.010 SG Urine ketones: - KET Urine bilirubin: - ALEXIS Urine glucose: - GLU .................... .................... .................... .................... .................... .................... .................... . Cage Maker Note From Tamara Saldaña: Sent to a call for a pt complaining of UTI symptoms. [facility] arrives on scene, pt is alert and oriented, airway is patent. Pt's primary language is Sami. Melter Supervisor line used during visit. Pt complains of [...] obtained; urine dip performed; results uploaded to [employer]. [facility] consulted and speaks to pt via phone. Pt's allergies to medication verifed: PCN, Bactrim (sulfa), Azithromycin, Morphine, Percocet, Codeine, Doxycycline, Hydrocortisone, Tramadol, Prednisone. [facility] orders urine culture to be taken to [facility]. [facility] sends script to pt's pharmacy. Red flags discussed. Pt has no further questions. .................... .................... .................... .................... .................... .................... .................... . Disposition: Fulfilled Yolanda Millan MD [address] [place] [address],[address] [facility], [place], [address], [employer] 12/14/2023 16:12:39 01/01/2025 text/html HPI: Patient with [...] 2, Hyperlipidemia PMH Reviewed at 01/01/2025 - 15:07 Allergies Reviewed at 01/01/2025 - 15:07 Comments: [facility] reviewed Cage Maker Organization Information for Zachary Denson Legal Name: [employer]. Address: [address] [place] [address], Customer Service Representative: Swapnil Quarles MD CLIA No.: [id number] Cage Maker POC Test Results from Zachary Denson EKG (16:39:26) EKG test performed. Attachments uploaded as part of this test result can be found under Documents section. [employer] Chem8+ (16:46:32) Na: 133mEq/LK: 3.9mEq/LCl: 97mEq/LiCa: 1.15mmol/LTCO2: 21mmol/LGlu: 269mg/dLBUN: 20mg/dLCrea: 1.4mg/dLHct: 42%Hb: 14.3g/dLAmmol/LCartridge Number: [id number] Attachments uploaded as part of this test result can be found under Documents section. EKG (16:39:26) - This test has been updated by the supervisor mill, Zachary Denson at (01/01/2025 18:17:36). The changes are marked in bold.EKG test performed. Attachments uploaded as part of this test result can be found under Documents section. .................... .................... .................... .................... .................... .................... .................... . Cage Maker Note From Zachary Denson: Encountered patient seated [...] and edema. While performing the BMP, this medical underwriter had their back towards patient who attempted to stand with the use of her walker, resulting in a fall in which patient fell backwards landing on the radiator lining the apartment. [facility] called and notified immediately, agrees with plan [...] and discovering patient is on Xarelto, this medical underwriter advised patient that head injuries in the presence of anti-coagulants should be taken seriously. After some convincing, patient was agreeable to transport. 911 was arranged by this medical underwriter on behalf of patient. Attempts to keep patient stationary were unsuccessful following the fall, patient still insisted on ambulating despite being urged not to; stating she had to use the bathroom and change clothing prior to going to the hospital. Patient care was relinquished to [facility] crew with verbal report given, transport destination [facility]. Post fall assessment: Patient remained alert and oriented, answering questions appropriately although not heeding this medical underwriter's advice of remaining stationary. Pupils equal round [...] motion and no lacerations or skin tears. [facility] Lab Orders: electrocardiogram: Performed BMP, serum or plasma: Performed .................... .................... .................... .................... .................... .................... .................... . [facility] Consulted: Sharon Lee .................... .................... .................... .................... .................... .................... .................... . Disposition: Fulfilled Sharon Lee MD [address] [place] [address],[address], [place], [address], [employer], [facility] 01/01/2025 18:50:08 OBGyn Episode No OBEpisode recorded.
--- OUTSIDE RECORDS SUMMARY | 2025-04-06 14:30 | XMS_ITS | Encounter Summary ---
Author Organization [employer] Address [address] [place] [address] 7[address] [place] [address] Care Team Providers Care Laborer Steel Handling Name Role Phone Shawna Gamble MD Primary Care Provider [phone] Encounter Details Date Type Department Care Team (Late st Contact Info) Description 04/06/2025 Orders Only GENERIC EXTERNAL DATA [...] Care Plan Weekly blood pressure task No Phil desaiLuis Manuel Weekly blood pressure task Care Plan Weekly blood pressure task No Phil desai Luis Manuel Patient has chronic kidney disease Care Plan Patient has chronic kidney disease No Luis Manuel Booth Patient has chronic kidney disease Care Plan Patient has chronic kidney disease No Luis Manuel Booth documented as of this encounter Procedures Procedure Name Priority Date/Time Associated Diagnosis Comments XR FOOT 3+ VIEWS LEFT Routine 04/06/2025 1:30 PM EST URINALYSIS, COMPLETE, WITH REFLEX TO CULTURE Routine 04/06/2025 1:17 PM EST CBC WITH AUTO DIFFERENTIAL Routine 04/06/2025 1:16 PM EST C-REACTIVE PROTEIN Routine 04/06/2025 1: 16 PM EST URIC ACID Routine 04/06/2025 1:16 PM EST COMPREHENSIVE METABOLIC PANEL Routine 04/06/2025 1:16 PM EST documented in this encounter Results * XR Foot 3+ Views Left (04/06/2025 1:30 PM EST) Anatomical Region Laterality Modality Lower Extremities, Foot Left [facility] 04/06/2025 1:30 PM EST Narrative 04/06/2025 1:51 PM EST [place] [address] XRay Report Signed Patient: Sonia Marcano MR#: [id number] 5 : 1955 Acct:[id number] Age/Sex: 69 / F ADM Date: 04/06/25 Loc: HO.ED Attending Dr: Ordering Physician: Bry Spencer Date of Service: 04/06/25 Procedure(s): XR foot LT min 3V Accession Number(s): [id number] cc: Bry Spencer; Shawna Gamble Reason for [...] by: Pj Osullivan MD 04/06/2025 01:48 PM [facility] Dictated By: Pj Osullivan MD Signed By: <Electronically signed by Pj Osullivan MD in OV> 04/06/25 1348 DD/ 1330 TD/TT: 04/06/25 1333 It Data Architect: Procedure Note Donotuseinterpreter, Image - 04/06/[address] [address] XRay Report Signed Patient: Sonia MarcanoMR#: [id number] 5 : 4Acct:[id number] Age/Sex: 69 / FADM Date: 04/06/25 Loc: HO.ED Attending Dr: Ordering Physician: Bry Spencer Date of Service: 04/06/25 Procedure(s): XR foot LT min 3V Accession Number(s): [id number] cc: Bry Spencer; Shawna Gamble Reason for [...] 04/06/25 1348 DD/ 1330 TD/TT: 04/06/25 1333 It Data Architect: [facility] External Provider IMG XR PROCEDURES Final Result * (ABNORMAL) Urinalysis, Complete, with Reflex to Culture (04/06/2025 1:17 PM EST) Color Urine Yellow [facility] Appearance Urine Clear [facility] PH 8.5 5.0 - 9.0 [facility] Glucose Urine UA >=1000(A) Negative mg/dL [facility] Urine Blood Large (3+)(A) Negative [facility] Specific [place] - Urine 1.015 1.005 - 1.025 [facility] Urine Protein Trace Neg-Trace mg/dL [facility] Urine Ketones Negative Negative mg/dL [facility] Nitrite Urine Negative Negative [facility] Leukocyte Esterase Urine Moderate (2+)(A) Negative [facility] RBC Urine 3-5(A) 0 - 2 /HPF [facility] Urine WBC >50(A) 0 - 5 /HPF [facility] Urine Squamous Epithelial Cell 0-2 0 - 2 /HPF [facility] Urine Bacteria 4+ None Seen [facility] Hyaline Casts, Urine 0-2 0 - 2 /LPF [facility] 04/06/2025 1:17 PM EST 04/06/2025 1:22 PM EST Narrative [facility] - 04/06/2025 1:37 PM EST [id number], Clean Catch us Generic External Data Provider LAB URINE ORDERAB LES Final Result Performing Organization Address [facility] Co de Phone Number [facility] [address] [place] [phone] * C-reactive Protein (04/06/2025 1:16 PM EST) C Reactive Protein <0.10 < or = 0.50 mg/dL [facility] 04/06/2025 1:16 PM EST 04/06/2025 1:22 PM EST Generic External Data Provider LAB BLOOD ORDERAB LES Final Result Performing Organization Address [facility] Co de Phone Number [facility] [address] [place] [phone] * (ABNORMAL) Comprehensive Metabolic Panel (04/06/2025 1:16 PM EST) Sodium 136 135 - 145 mmol/L [facility] Potassium 4.6 3.3 - 5.1 mmol/L [facility] Chloride 98 96 - 108 mmol/L [facility] Carbon Dioxide 28 22 - 29 mmol/L [facility] Anion Gap 15 12 - 20 [facility] Urea Nitrogen (BUN) 17(H) 9 - 16 mg/dL [facility] Creatinine, Serum 0.93 0.5 - 1.4 mg/dL [facility] Creatinine Clr Calc Pharmacy 45.8 [facility] Comment:Provided height and weight: 160.02 cm,60.781 kg.eGFR (calculated from the MDRD study equation) and eCrCl(calculated from the Cockcroft-Gault equation) are based ondifferent parameters and may not yield comparable results.If eCrCl result is absurd, please check patient'sheight/weight. Estimated Glomerular Filt Rate 59 [facility] Comment:Chronic Kidney Disea se: Estimated GFR < 60 mL/min/1.29d7Quzjfr Kidney Disease: Estimated GFR < 15 mL/min/1.73m2 Glucose 343(H) 60 - 115 mg/dL [facility] Calcium 10.0 8.4 - 10.2 mg/dL [facility] Bilirubin, Total 0.3 0.0 - 1.0 mg/dL [facility] Aspartate Amino Transferase 49(H) 5 - 31 U/L [facility] Alanine Aminotransferase 37(H) 0 - 31 U/L [facility] Total Protein 8.0 6.5 - 8.0 g/dL [facility] Albumin Level 4.7 3.5 - 5.0 g/dL [facility] Alkaline Phosphatase 169(H) 39 - 117 U/L [facility] 04/06/2025 1:16 PM EST 04/06/2025 1:22 PM EST us Generic External Data Provider LAB BLOOD ORDERAB LES Final Result Performing Organization Address [facility]/ZIP Co de Phone Number [facility] [address] [place] [phone] * Uric acid (04/06/2025 1:16 PM EST) Uric Acid 4.3 2.4 - 5.7 mg/dL [facility] 04/06/2025 1:16 PM EST 04/06/2025 1:22 PM EST Generic External Data Provider LAB BLOOD ORDERAB LES Final Result Performing Organization Address [facility] Co de Phone Number [facility] [address] [place] [phone] * (ABNORMAL) CBC auto differential (04/06/2025 1:16 PM EST) White Blood Count 13.9(H) 4.8 - 10.8 X10*3/uL [facility] Red Blood Count 4.28 4.20 - 5.50 X10*6/uL [facility] Hemoglobin 11.8(L) 12.0 - 16.0 g/dl [facility] Hematocrit 37.3 37.0 - 47.0 % [facility] Mean Corpuscular Volume 87.1 80.0 - 98.0 fL [facility] Mean Corpuscular Hemoglobin 27.6 27.0 - 33.0 pg [facility] Mean Corpuscular HGB Conc 31.6 31.0 - 35.0 g/dl [facility] Red Cell Distribution Width 15.9 11.0 - 16.0 % [facility] Platelet Count 291 160 - 400 X10*3/uL [facility] Mean Platelet Volume 11.5 9.4 - 12.3 fL [facility] Neutrophils Percent Auto 77.6(H) 45 - 73 % [facility] Imm Gran Pct Auto 0.4 0.0 - 0.4 % [facility] Lymphocytes Percent Auto 12.4(L) 20 - 40 % [facility] Monocytes Percent Auto 6.8 2 - 11 % [facility] Eosinophils Percent Auto 1.9 0 - 4 % [facility] Basophils Percent Auto 0.9 0 - 2 % [facility] NRBC Pct Auto 0.0 0.0 - 0.2 /100WBC [facility] Neutrophils Absolute Auto 10.8(H) 2.0 - 8.3 x10*3/uL [facility] Imm Gran Abs Auto 0.05(H) 0.00 - 0.03 X10*3/uL [facility] Lymphocytes Absolute Auto 1.7 1.2 - 4.9 X10*3/uL [facility] Monocytes Absolute Auto 1.0 0.1 - 1.2 X10*3/uL [facility] Eosinophils Absolute Auto 0.3 0.0 - 0.4 X10*3/uL [facility] Basophils Absolute Auto 0.1 0.0 - 0.2 X10*3/uL [facility] NRBC Abs Auto 0.000 0.0 - 0.012 X10*3/uL [facility] 04/06/2025 1:16 PM EST 04/06/2025 1:22 PM EST us Generic External Data Provider LAB BLOOD ORDERAB LES Final Result Performing Organization Address City/State/[facility] Co de Phone Number [facility] [address] [place] [phone] documented in this encounter Visit Diagnoses [...] documented as of this encounter Care Teams Laborer Steel Handling Relationship Specialty Start Date End Date Shawna Gamble MD [address] [place] [phone] PCP - General Family Medicine 05/13/22 [employer] 01/22/25 documented as of this encounter
--- OUTSIDE RECORDS SUMMARY | 2025-04-06 14:30 | XMS_ITS | Encounter Summary ---
Author Organization [employer] Address [address] [facility] [address] [place] [address] Care Team Providers Care Wool Washing Machine Operator Name Role Phone Shawna Gamble MD Primary Care Provider Encounter Details Date Type Department Care Team ([facility] st Contact Info) Description 03/22/2023 Abstract [facility] [address] [place] [address] Shawna Gamble MD [address] [place], [place] [phone] Social History Tobacco Use Types Packs/Day Years [...] on filedocumented in this encounter Care Teams Wool Washing Machine Operator Relationship Specialty Start Date End Date Shawna Gamble MD [address] [place] [phone] PCP - General Family Medicine 05/13/22 [employer] 01/22/25 documented as of this encounter
--- OUTSIDE RECORDS SUMMARY | 2025-04-06 14:30 | XMS_ITS | Encounter Summary ---
Author Organization [employer] Address [address] [place] [address] 7t [place] [address] Care Team Providers Care Broom Maker Name Role Phone Shawna Gamble MD Primary Care Provider [phone] Encounter Details Date Type Department Care Team ([facility] st Contact Info) Description 11/25/2022 Telephone [facility] MEDICINE [address] [place], [place] [phone] Shawna Gamble MD [address] [place] [address] Social History Tobacco Use Types Packs/Day Years [...] for VNA services. Please contact edgardo at [phone] Fax number: [phone] documented in this encounter Plan of Treatment Not on file documented as of this encounter Visit Diagnoses Not on filedocumented in this encounter Care Teams Broom Maker Relationship Specialty Start Date End Date Shawna Gamble MD [address] [place] [address] PCP - General Family Medicine 05/13/22 [employer] 01/22/25 documented as of this encounter
--- OUTSIDE RECORDS SUMMARY | 2025-04-06 14:30 | XMS_ITS | Clinical Summary ---
Author Organization [facility] Address [address] [place] [phone] Phone Care Team Providers Care Invoicing Specialist Name Role Phone Reena Marinelli Primary Care Provider [phone] Social History Tobacco Use Types Packs/Day Years [...] file Medical Devices Not on file Insurance [facility] [id number] FORMERLY [facility] MEDICARE REPLACEMENT FORMERLY [facility] MEDICARE REPLACEMENT [address] [facility]. [place] FORMERLY [facility] MEDICARE REPLACEMENT [address] [facility]. [place] FORMERLY [facility] MEDICARE REPLACEMENT [address] [facility]. [place] FORMERLY [facility] MEDICARE REPLACEMENT [address] [facility]. [place] FORMERLY [facility] MEDICARE REPLACEMENT [address] [facility]. [place] FORMERLY [facility] MEDICARE REPLACEMENT [facility] MEDIC[facility]PLACEMENT Care Teams Invoicing Specialist Relationship Specialty Start Date End Date Reena Marinelli PA [address] [place] [address] [email or web address] PCP - General Operations Forester 08/18/19 Additional Source Comments The information contained in this document represents components of the legal health record. It is not the complete legal health record.[facility]
[2025-04-06 14:34] LABS: Erythrocyte Sedimentation Rate 25 MM/HR (0-20)
[2025-04-06 16:34] LABS: Troponin-I High Sensitivity < 2.7 ng/L (<3.5-17.0)
[2025-04-06 16:44] VITALS: BP 158/79; PULSE 77; RESP 18; TEMP 36.7; O2SAT 100
== END 2025-04-06 16:44 | disposition home or self-care (01) ==
PROVIDERS: Physician Assistant; Emergency Provider Emergency Medicine; PCP General Practice
DX: S90.112A Contusion of left great toe without damage to nail, initial encounter (principal); R60.0 Localized edema; R07.89 Other chest pain; E11.9 Type 2 diabetes mellitus without complications; X58.XXXA Exposure to other specified factors, initial encounter; Y93.9 Activity, unspecified; Y92.9 Unspecified place or not applicable; Y99.8 Other external cause status; Z79.899 Other long term (current) drug therapy
CPT/HCPCS: 36415; 73630; 80053; 81001; 84484; 84550; 85025; 85652; 86140; 87086; 87147; 93005; 93971; 99285

== ENCOUNTER → 2025-04-06 13:02 | Outpatient (BNV) | payer OTHER, SELFPAY | PROVIDERS: PCP General Practice; Visit Provider Radiology Diagnostic Radiology | DX: M79.89 Other specified soft tissue disorders (principal); M85.872 Other specified disorders of bone density and structure, left ankle and foot; M20.12 Hallux valgus (acquired), left foot; M19.072 Primary osteoarthritis, left ankle and foot | CPT/HCPCS: 73630; 93971 ==

== ENCOUNTER → 2025-04-06 14:01 | Outpatient (BNV) | payer OTHER, SELFPAY | PROVIDERS: Emergency Provider Emergency Medicine; PCP General Practice; Visit Provider Internal Medicine | DX: R07.9 Chest pain, unspecified (principal) | CPT/HCPCS: 93010 ==

== ENCOUNTER 2025-05-16 09:57 | Outpatient (AMB) | payer OTHER, SELFPAY ==
--- NOTE | 2025-05-16 10:10 | A.OFFVIS_ITS ---
Intake Visit Reasons: pain left great toe/type 2 diabetes Intake Note: 69 year old female coming in today for left foot big toe pain possible foot care discolored no injury glucose : as of yesterday morning 130 last A1C: unknown pain comes and goes swelling on the big toe numbness and tingling in the feet ? no Allergies cortisone (CORTISONE) Allergy (Intermediate, Verified 05/24/25 08:41) RASH hydrocortisone Allergy (Intermediate, Verified 05/24/25 08:41) Rash morphine (Morphine) Allergy (Intermediate, Verified 05/24/25 08:41) RASH, ITCHING oxycodone (From Percocet) Allergy (Intermediate, Verified 05/24/25 08:41) Nausea and Vomiting Penicillins Allergy (Intermediate, Verified 05/24/25 08:41) ITCHING sulfamethoxazole (From Bactrim) Allergy (Intermediate, Verified 05/24/25 08:41) Rash trimethoprim (From Bactrim) Allergy (Intermediate, Verified 05/24/25 08:41) Rash acetaminophen (From Percocet) Allergy (Mild, Verified 05/24/25 08:41) Unknown azithromycin Allergy (Mild, Verified 05/24/25 08:41) Unknown doxycycline Allergy (Mild, Verified 05/24/25 08:41) Unknown tramadol Allergy (Mild, Verified 05/24/25 08:41) Unknown tylenol codeine Allergy (Mild, Uncoded 02/27/25 15:56) Unknown HPI Comments Details: The patient is a 69-year-old female with PMH as seen below presenting with discoloration of her left great toenail. She reports this issue began approximately one month ago and has no recollection of any specific traumatic event to the hallux. The discoloration appeared insidiously without any identifiable triggering factors. The patient experiences intermittent pain with the toenail. She also confirms there has been no purulent drainage emanating from the area. Patient was accompanied by a manager medicare. She denies any other pedal concerns. [facility] Medical History (Updated 05/23/25 @ 21:00 by Neha Rodrigues DPM) Onycholysis Anemia Rheumatic arteritis Neuropathy History of heart attack Diabetes Pancreatic insufficiency GERD (gastroesophageal reflux disease) Surgical History History of open heart surgery Hx of cardiac catheterization Hx of heart artery stent Hx of colonoscopy History of esophagogastroduodenoscopy (EGD) History of bilateral carpal tunnel release History of cholecystectomy H/O colonoscopy with polypectomy Family History Father No problems noted. Mother No problems noted. Brother No problems noted. Sister Breast cancer Lymphoma Sister No problems noted. Sister No problems noted. Sister No problems noted. Social History Household Members: None Are you a primary hospice care sales consultant to a significant other at home: No Do you presently have visiting nurse or other home services: No Alcohol intake: never Patient Tobacco Use Status: Never used Tobacco Current occupational status: unemployed and disabled Review of Systems Const Details: - Reports left hallux onycholysis and subungual hematoma. Physical Exam Extrem Other: LLE Focused Physical Exam: Derm: Subungual hematoma noted to the left hallux with loose adherence of the nail to the nail bed. Remaining nails within normal limits. No open lesions, abrasions, or wounds noted. No drainage or purulence noted. Vasc: DP/PT pulses palpable. CFT < 3 secs. Temp gradient warm to warm. Pedal hair absent. Minimal varicosities noted. No edema noted. Neuro: Protective sensations grossly intact. MSK: Mild discomfort noted to the left hallux. No crepitus or fluctuance noted. ROM of the forefoot, hindfoot, and ankle WNL. Mild hammertoes noted to B/L 2-5 toes. Mildly antalgic gait noted with the use of a walker. Office Procedures AMB Debridement/Avulsion Podia Details: Procedure: Left hallux total nail avulsion Cleansed left hallux with alcohol swab and injected 10cc of 1%lidocaine plain in a hallux block fashion. Next applied a tourniquet to the left hallux and then cleansed the left hallux with Betadine. Attention was drawn to the loosely attached left hallucal nail and a Coats was utilized to free the offending nail from the nail bed and nail matrix. Next using a hemostat, the offending nail was removed completely. Upon removal of the nail, evacuation of the subungual hematoma was noted. A curette was used to ensure all spicules were removed. Next, Triple antibiotic ointment, 2x2 gauze, and Coban was then applied to the left hallux. Procedure was done with no incidents. Provided patient with aftercare instructions. [id number] Partial/Total nail avulsion (1 nail) Procedure code (CPT) selection complete Office Meds lidocaine HCl 10 mg/mL (1 %) injection solution Performing Provider: Neha Rodrigues DPM Performing Location: [facility] Administered by: Neha Rodrigues DPM on 05/24/25 09:30 Dose Route Admin Location Dispensed Lot Number Expiration Date [facility] [place] [employer]use 10 mL subcut 10 mL [id number] [employer] Total Dispensed Waste 10 mL 0 % Triple Antibiotic 3.5 mg-400 unit-5,000 unit topical ointment packet Performing Provider: Neha Rodrigues DPM Performing Location: [facility] Administered by: Neha Rodrigues DPM on 05/24/25 09:30 Dose Route Admin Location Dispensed Lot Number Expiration Date [facility] [place] [employer] 1 appl topical 1 appl [id number] [place] povidone-iodine 10 % topical swab Performing Provider: Neha Rodrigues DPM Performing Location: [facility] Administered by: Neha Rodrigues DPM on 05/24/25 09:30 Dose Route Admin Location Dispensed Lot Number Expiration Date [facility] [place] [employer] 1 appl topical 1 appl [id number] [employer] [place]. ethyl chloride 100 % topical spray Performing Provider: Neha Rodrigues DPM Performing Location: [facility] Administered by: Neha Rodrigues DPM on 05/24/25 09:30 Dose Route Admin Location Dispensed Lot Number Expiration Date [facility] [place] [employer] 1 appl topical 116 mL [id number] [employer]. Results Reviewed Results Reviewed: Laboratory Tests 04/06/25 13:16 WBC 13.9 H ESR 25 H Random Glucose 343 H Uric Acid 4.3 AST 49 H ALT 37 H C-Reactive Protein < 0.10 Assessment & Plan Assessment & Plan (1) Onycholysis: Code(s): L60.1 - Onycholysis Category: Medical (2) Subungual hematoma of great toe of left foot: Code(s): S90.212A - Contusion of left great toe with damage to nail, initial encounter Category: Medical Plan Patient was informed and verbally consented to the use of an ambient scribe for clinic note documentation during this visit. I discussed with the patient the presence of a subungual hematoma on her left hallux and the risks associated with retaining the trapped blood, such as infection. I advised a total nail avulsion to address the hematoma. I also described the usual nail regrowth period, typically occurring over six to twelve months. We reviewed the post-procedure care, including dressing changes and Epsom salt soaks. Informed consent was obtained following a detailed discussion of the procedure's risks, benefits, and alternatives. - Perform a total nail avulsion of the left hallux to evacuate the subungual hematoma. Provided patient with after care instructions. - Provided patient with a surgical shoe. - Patient may be WBAT to the LLE. - Patient is to avoid ill-fitting shoes. RTC in 2 weeks. Orders: Orders AMB Debridement/Avulsion Podiatry 05/16/25 L60.1 - Onycholysis, S90.212A - Contusion of left great toe with damage to nail, initial encounter Medications: New povidone-iodine 10% 1 appl topical ONCE 1 ea 0RF L60.1 - Onycholysis, S90.212A - Contusion of left great toe with damage to nail, initial encounter ethyl chloride 100% 1 appl topical ONCE 1 mL 0RF L60.1 - Onycholysis, S90.212A - Contusion of left great toe with damage to nail, initial encounter lidocaine HCl 10 mL subcut ONCE 20 mL 0RF L60.1 - Onycholysis, S90.212A - Contusion of left great toe with damage to nail, initial encounter Triple Antibiotic 3.5-400-5,000 oa-ybpr-scwp (rrdwkond-oltnydoptIt-gxzcrjcnP) 1 appl topical ONCE 1 ea 0RF NS L60.1 - Onycholysis, S90.212A - Contusion of left great toe with damage to nail, initial encounter Coding Level of Care Code New Pt Level 4 (74343) Diagnoses Onycholysis L60.1 Subungual hematoma of great toe of left foot S90.212A CPT Codes Skin Debridement - CPT: 94354 Partial/Total nail avulsion (1 nail) ([id number]) Time Spent (min) 60 Comment 15 mins for procedure
--- OUTSIDE RECORDS SUMMARY | 2025-05-16 10:50 | XMS_ITS | Encounter Summary ---
Author Organization [employer] Address [address] [place] [address] [address] [place] [address] Care Team Providers Care Bullet Swaging Machine Adjuster Name Role Phone Shawna Gamble MD Primary Care Provider [phone] Encounter Details Date Type Department Care Team ([facility] st Contact Info) Description 07/10/2022 Orders Only [facility] MEDICINE [address] [place], [place] [phone] Shawna Gamble MD [address] [place] [address] Hypomagnesemia (Primary Dx) Social History Tobacco Use [...] EDT) Magnesium 1.6 1.6 - 2.6 mg/dL [facility] 12/17/2022 1:12 PM EDT 12/17/2022 1:20 PM EDT us Generic External Data Provider LAB BLOOD ORDERAB LES Final Result [facility] [address] [place] [phone] * (ABNORMAL) Basic Metabolic Panel (12/17/2022 1:12 PM EDT) Sodium 138 135 - 145 mmol/L [facility] Potassium 3.6 3.3 - 5.1 mmol/L [facility] Chloride 101 96 - 108 mmol/L [facility] Carbon Dioxide 24 22 - 29 mmol/L [facility] Anion Gap 17 12 - 20 [facility] Urea Nitrogen (BUN) 12 9 - 16 mg/dL [facility] Creatinine, Serum 0.75 0.5 - 1.4 mg/dL [facility] Estimated Glomerular Filt Rate >60 [facility] Comment:NOTE: For -Am erican individuals, multiply the result by 1.210.Chronic Kidney Disease: Estimated GFR < 60 mL/min/[id number] Kidney Disease: Estimated GFR < 15 mL/min/1.73m2 Glucose 118(H) 60 - 115 mg/dL [facility] Calcium 10.2 8.4 - 10.2 mg/dL [facility] 12/17/2022 1:12 PM EDT 12/17/2022 1:20 PM EDT [facility] External Provider LAB BLO OD ORDERABLES Final Result Performing Organization Address [facility] [[email or web address] Co de Phone Number [facility] [address] [place] [phone] * Vitamin D, 25-Hydroxy, Total, Immunoassay (12/09/2022 12:14 PM EDT) Vitamin D 25-OH Total 57.1 >30 ng/mL [facility] Comment:Health Based Referen ce Values*< 20 ng/mL [id number] ng/mL Insufficient> 30 ng/mL Sufficient*Norma TREVINO. N [...] ORDERAB LES Final Result Performing Organization Address [facility] [[email or web address]] Co de Phone Number [facility] [address] [place] [address] [phone] * (ABNORMAL) Magnesium (12/09/2022 12:14 PM EDT) Magnesium 1.5(L) 1.6 - 2.6 mg/dL [facility] 12/09/2022 12:1 4 PM EDT 12/09/2022 12:14 PM EDT Generic External Data Provider LAB BLOOD ORDERAB LES Final Result Performing Organization Address [facility]/ZIP Co de Phone Number [facility] [address] [place] [phone] [phone] * Phosphate (As Phosphorus) (12/09/2022 12:14 PM EDT) Phosphorus 3.5 2.7 - 4.5 mg/dL [facility] 12/09/2022 12:1 4 PM EDT 12/09/2022 12:14 PM EDT Generic External Data Provider LAB BLOOD ORDERAB LES Final Result [facility] [address] [place] [phone] * (ABNORMAL) Basic Metabolic Panel (12/09/2022 12:14 PM EDT) Sodium 134(L) 135 - 145 mmol/L [facility] Potassium 4.6 3.3 - 5.1 mmol/L [facility] Chloride 99 96 - 108 mmol/L [facility] Carbon Dioxide 31(H) 22 - 29 mmol/L [facility] Anion Gap 9(L) 12 - 20 [facility] Urea Nitrogen (BUN) 15 9 - 16 mg/dL [facility] Creatinine, Serum 0.87 0.5 - 1.4 mg/dL [facility] Estimated Glomerular Filt Rate >60 [facility] Comment:NOTE: For -Am erican individuals, multiply the result by 1.210.Chronic Kidney Disease: Estimated GFR < 60 mL/min/1.76t0Hklmcu Kidney Disease: Estimated GFR < 15 mL/min/1.73m2 Glucose 273(H) 60 - 115 mg/dL [facility] Calcium 9.4 8.4 - 10.2 mg/dL [facility] 12/09/2022 12:1 4 PM EDT 12/09/2022 12:14 PM EDT [facility] External Provider LAB BLO OD ORDERABLES Final Result Performing Organization Address [facility] de Phone Number [facility] [address] [place] [phone] [phone] * (ABNORMAL) Magnesium (11/30/2022 4:06 PM EDT) [facility] Magnesium 1.3(LL) 1.6 - 2.6 mg/dL [facility] Comment:Critical value for t est(s): MAGS Results called to and readback by: DR SALMON Person calling:[employer] Date: [id number] 11/30/2022 4:06 PM EDT 11/30/2022 5:44 PM EDT [facility] External Provider LAB BLO OD ORDERABLES Final Result Performing Organization Address [facility] Phone Number [facility] [address] [place] [phone] * TSH (11/30/2022 4:06 PM EDT) [facility] Thyroid Stimulating Hormone 1.92 0.32 - 4.0 uIU/mL [facility] Comment:TSH 3rd Generation ( [employer]) 11/30/2022 4:06 PM EDT 11/30/2022 5:44 PM EDT [facility] External Provider LAB BLO OD ORDERABLES Final Result Performing Organization Address [facility] de Phone Number [facility] [address] [place] [phone] * (ABNORMAL) CBC auto differential (11/30/2022 4:06 PM EDT) [facility] White Blood Count 7.3 4.8 - 10.8 X10*3/uL [facility] Red Blood Count 3.62(L) 4.20 - 5.50 X10*6/uL [facility] Hemoglobin 10.4(L) 12.0 - 16.0 g/dl [facility] Hematocrit 32.0(L) 37.0 - 47.0 % [facility] Mean Corpuscular Volume 88.4 80.0 - 98.0 fL [facility] Mean Corpuscular Hemoglobin 28.7 27.0 - 33.0 pg [facility] Mean Corpuscular HGB Conc 32.5 31.0 - 35.0 g/dl [facility] Red Cell Distribution Width 19.0(H) 11.0 - 16.0 % [facility] Platelet Count 277 160 - 400 X10*3/uL [facility] Mean Platelet Volume 11.2 9.4 - 12.3 fL [facility] Neutrophils Percent Auto 49.2 45 - 73 % [facility] Imm Gran Pct Auto 0.3 0.0 - 0.4 % [facility] Lymphocytes Percent Auto 36.0 20 - 40 % [facility] Monocytes Percent Auto 11.4(H) 2 - 11 % [facility] Eosinophils Percent Auto 2.1 0 - 4 % [facility] Basophils Percent Auto 1.0 0 - 2 % [facility] NRBC Pct Auto 0.0 0.0 - 0.2 /100WBC [facility] Neutrophils Absolute Auto 3.6 2.0 - 8.3 x10*3/uL [facility] Imm Gran Abs Auto 0.02 0.00 - 0.03 X10*3/uL [facility] Lymphocytes Absolute Auto 2.6 1.2 - 4.9 X10*3/uL [facility] Monocytes Absolute Auto 0.8 0.1 - 1.2 X10*3/uL [facility] Eosinophils Absolute Auto 0.2 0.0 - 0.4 X10*3/uL [facility] Basophils Absolute Auto 0.1 0.0 - 0.2 X10*3/uL [facility] NRBC Abs Auto 0.000 0.0 - 0.012 X10*3/uL [facility] 11/30/2022 4:06 PM EDT 11/30/2022 5:44 PM EDT [facility] External Provider LAB BLO OD ORDERABLES Final Result [facility] [address] [place] [phone] * T-SPOT??.TB (10/30/2022 9:18 AM EDT) T Spot TB Negative Negative [facility] Comment:A negative test resu lt [...] as aquantitative test. TS PANEL A 0 [facility] TS PANEL B 0 [facility] Negative Control Passed [facility] Positive Control Passed [facility] Comment:For additional infor matfederica, please refer [email or web address].[employer]/faq/XSQ397(This link is being provided for informational/educational purposes only.)THIS TEST WAS PERFORMED AT:[email or web address] [place] [email or web address] ROBERT MD,PHD 10/30/2022 9:18 AM EDT 10/30/2022 9:18 AM EDT [facility] External Provider LAB BLO OD ORDERABLES Final Result [facility] [address] [place] [phone] * Hepatitis B surface antigen, EIA (10/30/2022 9:18 AM EDT) Hepatitis B Surface Ag Negative Negative [facility] 10/30/2022 9:18 AM EDT 10/30/2022 9:18 AM EDT [facility] External Provider LAB BLO OD ORDERABLES Final Result Performing Organization Address [facility] [[email or web address]] Co de Phone Number [facility] [address] [place] [phone] * HIV Ab/Ag ([facility]) (10/30/2022 9:18 AM EDT) HIV AB/AG Nonreactive Nonreactive [facility] Comment:HIV-1 p24 Ag and/or HIV-1/HIV-2 Ab not detected.A test result that is nonreactive does not exclude thepossibility of exposure to or infection with HIV-1 and/orHIV-2. Nonreactive results in this assay for individualswith prior exposure to HIV-1 and/or HIV-2 may be due toantigen and antibody levels that are below the limit ofdetection of this assay.[employer] HIV Ag/Ab Combo assay result andsupplemental assay results should be interpreted inconjunction with the patient's clinical presentation,history and other laboratory results. If the results areinconsistent with clinical evidence, additional testing issuggested to confirm the result. 10/30/2022 9:18 AM EDT 10/30/2022 9:18 AM EDT [facility] External Provider LAB BLO OD ORDERABLES Final Result Performing Organization Address [facility] [[email or web address]] Co de Phone Number [facility] [address] [place] [phone] * Hepatitis C Ab (10/30/2022 9:18 AM EDT) Pathologist [facility] [place] Hepatitis C Antibody Nonreactive Nonreactive [facility] Comment:Antibodies to HCV no t detected; does not exclude early acuteHCV infection. 10/30/2022 9:18 AM EDT 10/30/2022 9:18 AM EDT [facility] External Provider LAB BLO OD ORDERABLES Final Result Performing Organization Address [facility] [[email or web address]] Co de Phone Number [facility] [address] [place] [phone] * Hepatitis B Core Antibody, Total (10/30/2022 9:18 AM EDT) Pathologist [facility] Hepatitis B Core Antibody Nonreactive Nonreactive [facility] 10/30/2022 9:18 AM EDT 10/30/2022 9:18 AM EDT [facility] External Provider LAB BLO OD ORDERABLES Final Result Performing Organization Address [facility] [[email or web address]] Co de Phone Number [facility] [address] [place] [phone] * Hepatitis B Surface Antibody, Qualitative (10/30/2022 9:18 AM EDT) Pathologist [facility] ~Hepatitis B Surface Antibody NONREACTIVE Nonreactive [facility] Comment:Nonreactive: < 8.00 mIU/mL 10/30/2022 9:18 AM EDT 10/30/2022 9:18 AM EDT [facility] External Provider LAB BLO OD ORDERABLES Final Result Performing Organization Address [facility] de Phone Number [facility] [address] [place] [phone] * Vitamin B12/Folate, Serum Panel (10/30/2022 9:18 AM EDT) Pathologist [facility] Vitamin B12 546 200 - 900 pg/mL [facility] Comment:NORMAL 200-900 PG/ML INDETERMINATE 160-199 PG/ML DEFICIENT < 160 PG/ML Folate 11.6 > or = 4.0 ng/mL [facility] Comment:Reference Values:> o r = 4.0 ng/mL< 4.0 ng/mL suggests folate deficiency Methotrexate, aminopterin and folinic acid(leucovorin) are chemotherapeutic agents whose molecularstructures are similar to folate; therefore, the Architectfolate assay cannot be used for patients using these drugs. 10/30/2022 9:18 AM EDT 10/30/2022 9:18 AM EDT [facility] External Provider LAB BLO OD ORDERABLES Final Result Performing Organization Address [facility] [[email or web address]] Co de Phone Number [facility] [address] [place] [phone] * Prealbumin (10/30/2022 9:18 AM EDT) [facility] Prealbumin 26.0 20 - 40 mg/dL [facility] 10/30/2022 9:18 AM EDT 10/30/2022 9:18 AM EDT [facility] External Provider LAB BLO OD ORDERABLES Final Result Performing Organization Address [facility] [[email or web address]] Co de Phone Number [facility] [address] [place] [phone] * (ABNORMAL) Comprehensive Metabolic Panel (10/30/2022 9:18 AM EDT) [facility] Sodium 137 135 - 145 mmol/L [facility] Potassium 3.8 3.3 - 5.1 mmol/L [facility] Chloride 102 96 - 108 mmol/L [facility] Carbon Dioxide 22 22 - 29 mmol/L [facility] Anion Gap 17 12 - 20 [facility] Urea Nitrogen (BUN) 10 9 - 16 mg/dL [facility] Creatinine, Serum 0.90 0.5 - 1.4 mg/dL [facility] Estimated Glomerular Filt Rate >60 [facility] Comment:NOTE: For -Am erican individuals, multiply the result by 1.210.Chronic Kidney Disease: Estimated GFR < 60 mL/min/1.54r0Httwim Kidney Disease: Estimated GFR < 15 mL/min/1.73m2 Glucose 134(H) 60 - 115 mg/dL [facility] Calcium 10.0 8.4 - 10.2 mg/dL [facility] Bilirubin, Total 0.5 0.0 - 1.0 mg/dL [facility] Aspartate Amino Transferase 51(H) 5 - 31 U/L [facility] Alanine Aminotransferase 32(H) 0 - 31 U/L [facility] Total Protein 6.9 6.5 - 8.0 g/dL [facility] Albumin Level 3.8 3.5 - 5.0 g/dL [facility] Alkaline Phosphatase 51 39 - 117 U/L [facility] 10/30/2022 9:18 AM EDT 10/30/2022 9:18 AM EDT [facility] External Provider LAB BLO OD ORDERABLES Final Result Performing Organization Address [facility]/ZIP Co de Phone Number [facility] [address] [place] [phone] * (ABNORMAL) Ferritin (08/31/2022 7:32 AM EDT) Ferritin 299(H) 10 - 250 ng/mL [facility] 08/31/2022 7:32 AM EDT 08/31/2022 7:32 AM EDT [facility] External Provider LAB BLO OD ORDERABLES Final Result Performing Organization Address [facility]/ZIP Co de Phone Number [facility] [address] [place] [phone] * B Type Natriuretic Peptide (BNP) (08/31/2022 7:32 AM EDT) B Type Natriuretic Peptide 68 <100 pg/mL [facility] Comment:For those patients w ho are being treated with Natrecor(nesiritide, recombinant BNP), BNP testing should beperformed at least two hours post treatment in order toensure that only endogenous levels of BNP are detected. 08/31/2022 7:32 AM EDT 08/31/2022 7:32 AM EDT [facility] External Provider LAB BLO OD ORDERABLES Final Result Performing Organization Address City/[facility]/ZIP Co de Phone Number [facility] [address] [place] [phone] * (ABNORMAL) Lipase (08/31/2022 7:32 AM EDT) Lipase 154(H) 8 - 78 U/L [facility] 08/31/2022 7:32 AM EDT 08/31/2022 7:32 AM EDT [facility] External Provider LAB BLO OD ORDERABLES Final Result Performing Organization Address City/[facility]/ZIP Co de Phone Number [facility] [address] [place] [phone] * Iron And Total Iron Binding Capacity (08/31/2022 7:32 AM EDT) Iron 36 30 - 160 mcg/dL [facility] Total Iron Binding Capacity 229 228 - 428 mcg/dL [facility] Percent Iron Saturation 16 15 - 50 % [facility] Unsaturated Iron Binding 193 ug/dL [facility] 08/31/2022 7:32 AM EDT 08/31/2022 7:32 AM EDT [facility] External Provider LAB BLO OD ORDERABLES Final Result Performing Organization Address [facility] de Phone Number [facility] [address] [place] [phone] * (ABNORMAL) Basic Metabolic Panel (08/31/2022 7:32 AM EDT) Pathologist [facility] Sodium 138 135 - 145 mmol/L [facility] Potassium 3.8 3.3 - 5.1 mmol/L [facility] Chloride 102 96 - 108 mmol/L [facility] Carbon Dioxide 20(L) 22 - 29 mmol/L [facility] Anion Gap 20 12 - 20 [facility] Urea Nitrogen (BUN) 6(L) 9 - 16 mg/dL [facility] Creatinine, Serum 0.85 0.5 - 1.4 mg/dL [facility] Estimated Glomerular Filt Rate >60 [facility] Comment:NOTE: For -Am erican individuals, multiply the result by 1.210.Chronic Kidney Disease: Estimated GFR < 60 mL/min/1.88w2Rdbqaf Kidney Disease: Estimated GFR < 15 mL/min/1.73m2 Glucose 137(H) 60 - 115 mg/dL [facility] Calcium 9.1 8.4 - 10.2 mg/dL [facility] 08/31/2022 7:32 AM EDT 08/31/2022 7:32 AM EDT [facility] External Provider LAB BLO OD ORDERABLES Final Result Performing Organization Address [facility] [[email or web address]] Co de Phone Number [facility] [address] [place] [phone] * (ABNORMAL) Hepatic Function Panel (08/31/2022 7:32 AM EDT) Bilirubin, Total 0.4 0.0 - 1.0 mg/dL [facility] Bilirubin, Direct 0.2 0.0 - 0.5 mg/dL [facility] Aspartate Amino Transferase 17 5 - 31 U/L [facility] Alanine Aminotransferase 8 0 - 31 U/L [facility] Total Protein 6.8 6.5 - 8.0 g/dL [facility] Albumin Level 3.8 3.5 - 5.0 g/dL [facility] Alkaline Phosphatase 120(H) 39 - 117 U/L [facility] 08/31/2022 7:32 AM EDT 08/31/2022 7:32 AM EDT us [facility] External Provider LAB BLO OD ORDERABLES Final Result [facility] [address] [place] [phone] * (ABNORMAL) CBC auto differential (08/31/2022 7:32 AM EDT) White Blood Count 12.4(H) 4.8 - 10.8 X10*3/uL [facility] Red Blood Count 3.94(L) 4.20 - 5.50 X10*6/uL [facility] Hemoglobin 11.4(L) 12.0 - 16.0 g/dl [facility] Hematocrit 36.0(L) 37.0 - 47.0 % [facility] Mean Corpuscular Volume 91.4 80.0 - 98.0 fL [facility] Mean Corpuscular Hemoglobin 28.9 27.0 - 33.0 pg [facility] Mean Corpuscular HGB Conc 31.7 31.0 - 35.0 g/dl [facility] Red Cell Distribution Width 14.7 11.0 - 16.0 % [facility] Platelet Count 425(H) 160 - 400 X10*3/uL [facility] Mean Platelet Volume 10.3 9.4 - 12.3 fL [facility] Neutrophils Percent Auto 53.6 45 - 73 % [facility] Imm Gran Pct Auto 0.4 0.0 - 0.4 % [facility] Lymphocytes Percent Auto 30.2 20 - 40 % [facility] Monocytes Percent Auto 10.1 2 - 11 % [facility] Eosinophils Percent Auto 4.6(H) 0 - 4 % [facility] Basophils Percent Auto 1.1 0 - 2 % [facility] NRBC Pct Auto 0.0 0.0 - 0.2 /100WBC [facility] Neutrophils Absolute Auto 6.7 2.0 - 8.3 x10*3/uL [facility] Imm Gran Abs Auto 0.05(H) 0.00 - 0.03 X10*3/uL [facility] Lymphocytes Absolute Auto 3.8 1.2 - 4.9 X10*3/uL [facility] Monocytes Absolute Auto 1.3(H) 0.1 - 1.2 X10*3/uL [facility] Eosinophils Absolute Auto 0.6(H) 0.0 - 0.4 X10*3/uL [facility] Basophils Absolute Auto 0.1 0.0 - 0.2 X10*3/uL [facility] NRBC Abs Auto 0.000 0.0 - 0.012 X10*3/uL [facility] 08/31/2022 7:32 AM EDT 08/31/2022 7:32 AM EDT [facility] External Provider LAB BLO OD ORDERABLES Final Result [facility] [address] [place] [phone] * Hemoglobin A1c (08/31/2022 7:32 AM [...] patient sample. Estimated Average Glucose 120 mg/dL [facility] Comment:eAG = Estimated ave rage glucose which is %A1C expressed asaverage glucose, using the formula of the [id number]-[id number] Glucose study (ADAG), Diabetes Care, Vol.31,#8,Dec. 2007 08/31/2022 7:32 AM EDT 08/31/2022 7:32 AM EDT [facility] External Provider LAB BLO OD ORDERABLES Final Result Performing Organization Address City/[facility]/ZIP Co de Phone Number [facility] [address] [place] [phone] * (ABNORMAL) Basic Metabolic Panel (08/10/2022 4:55 AM EDT) Sodium 137 135 - 145 mmol/L [facility] Potassium 4.7 3.3 - 5.1 mmol/L [facility] [facility] Chloride 105 96 - 108 mmol/L [facility] Carbon Dioxide 21(L) 22 - 29 mmol/L [facility] Anion Gap 16 12 - 20 [facility] Urea Nitrogen (BUN) 9 9 - 16 mg/dL [facility] Creatinine, Serum 0.79 0.5 - 1.4 mg/dL [facility] Estimated Glomerular Filt Rate >60 [facility] Comment:NOTE: For -Am erican individuals, multiply the result by 1.210.Chronic Kidney Disease: Estimated GFR < 60 mL/min/[id number] Kidney Disease: Estimated GFR < 15 mL/min/1.73m2 Glucose 95 60 - 115 mg/dL [facility] Calcium 8.7 8.4 - 10.2 mg/dL [facility] 08/10/2022 4:55 AM EDT 08/10/2022 6:02 AM EDT [facility] External Provider LAB BLO OD ORDERABLES Final Result Performing Organization Address [facility]/ZIP Co de Phone Number [facility] [address] [place] [address] [phone] * (ABNORMAL) CBC auto differential (08/10/2022 4:55 AM EDT) White Blood Count 9.3 4.8 - 10.8 X10*3/uL [facility] Red Blood Count 3.24(L) 4.20 - 5.50 X10*6/uL [facility] Hemoglobin 9.7(L) 12.0 - 16.0 g/dl [facility] Hematocrit 30.5(L) 37.0 - 47.0 % [facility] Mean Corpuscular Volume 94.1 80.0 - 98.0 fL [facility] Mean Corpuscular Hemoglobin 29.9 27.0 - 33.0 pg [facility] Mean Corpuscular HGB Conc 31.8 31.0 - 35.0 g/dl [facility] Red Cell Distribution Width 15.2 11.0 - 16.0 % [facility] Platelet Count 647(H) 160 - 400 X10*3/uL [facility] Mean Platelet Volume 10.1 9.4 - 12.3 fL [facility] Neutrophils Percent Auto 54.9 45 - 73 % [facility] Imm Gran Pct Auto 0.5(H) 0.0 - 0.4 % [facility] Lymphocytes Percent Auto 26.3 20 - 40 % [facility] Monocytes Percent Auto 8.3 2 - 11 % [facility] Eosinophils Percent Auto 8.5(H) 0 - 4 % [facility] Basophils Percent Auto 1.5 0 - 2 % [facility] NRBC Pct Auto 0.0 0.0 - 0.2 /100WBC [facility] Neutrophils Absolute Auto 5.1 2.0 - 8.3 x10*3/uL [facility] Imm Gran Abs Auto 0.05(H) 0.00 - 0.03 X10*3/uL [facility] Lymphocytes Absolute Auto 2.4 1.2 - 4.9 X10*3/uL [facility] Monocytes Absolute Auto 0.8 0.1 - 1.2 X10*3/uL [facility] Eosinophils Absolute Auto 0.8(H) 0.0 - 0.4 X10*3/uL [facility] Basophils Absolute Auto 0.1 0.0 - 0.2 X10*3/uL [facility] NRBC Abs Auto 0.000 0.0 - 0.012 X10*3/uL [facility] 08/10/2022 4:55 AM EDT 08/10/2022 6:02 AM EDT [facility] External Provider LAB BLO OD ORDERABLES Final Result [facility] [address], [place] [phone] * (ABNORMAL) Comprehensive Metabolic Panel (08/03/2022 5:00 AM EDT) Sodium 136 135 - 145 mmol/L [facility] Potassium 3.9 3.3 - 5.1 mmol/L [facility] Chloride 107 96 - 108 mmol/L [facility] Carbon Dioxide 20(L) 22 - 29 mmol/L [facility] Anion Gap 13 12 - 20 [facility] Urea Nitrogen (BUN) 11 9 - 16 mg/dL [facility] Creatinine, Serum 0.79 0.5 - 1.4 mg/dL [facility] Estimated Glomerular Filt Rate >60 [facility] Comment:NOTE: For -Am erican individuals, multiply the result by 1.210.Chronic Kidney Disease: Estimated GFR < 60 mL/min/[id number] Kidney Disease: Estimated GFR < 15 mL/min/1.73m2 Glucose 127(H) 60 - 115 mg/dL [facility] Calcium 8.2(L) 8.4 - 10.2 mg/dL [facility] Bilirubin, Total 0.3 0.0 - 1.0 mg/dL [facility] Aspartate Amino Transferase 16 5 - 31 U/L [facility] Alanine Aminotransferase 7 0 - 31 U/L [facility] Total Protein 4.8(L) 6.5 - 8.0 g/dL [facility] Albumin Level 2.5(L) 3.5 - 5.0 g/dL [facility] Alkaline Phosphatase 80 39 - 117 U/L [facility] 08/03/2022 5:00 AM EDT 08/03/2022 5:47 AM EDT [facility] External Provider LAB BLO OD ORDERABLES Final Result [facility] [address] [place] [address] [phone] * (ABNORMAL) CBC auto differential (08/03/2022 5:00 AM EDT) White Blood Count 8.8 4.8 - 10.8 X10*3/uL [facility] Red Blood Count 2.63(L) 4.20 - 5.50 X10*6/uL [facility] Hemoglobin 8.0(L) 12.0 - 16.0 g/dl [facility] Hematocrit 24.6(L) 37.0 - 47.0 % [facility] Mean Corpuscular Volume 93.5 80.0 - 98.0 fL [facility] Mean Corpuscular Hemoglobin 30.4 27.0 - 33.0 pg [facility] Mean Corpuscular HGB Conc 32.5 31.0 - 35.0 g/dl [facility] Red Cell Distribution Width 15.5 11.0 - 16.0 % [facility] Platelet Count 552(H) 160 - 400 X10*3/uL [facility] Mean Platelet Volume 10.3 9.4 - 12.3 fL [facility] Neutrophils Percent Auto 61.1 45 - 73 % [facility] Imm Gran Pct Auto 0.8(H) 0.0 - 0.4 % [facility] Lymphocytes Percent Auto 21.7 20 - 40 % [facility] Monocytes Percent Auto 10.2 2 - 11 % [facility] Eosinophils Percent Auto 4.9(H) 0 - 4 % [facility] Basophils Percent Auto 1.3 0 - 2 % [facility] NRBC Pct Auto 0.0 0.0 - 0.2 /100WBC [facility] Neutrophils Absolute Auto 5.4 2.0 - 8.3 x10*3/uL [facility] Imm Gran Abs Auto 0.07(H) 0.00 - 0.03 X10*3/uL [facility] Lymphocytes Absolute Auto 1.9 1.2 - 4.9 X10*3/uL [facility] Monocytes Absolute Auto 0.9 0.1 - 1.2 X10*3/uL [facility] Eosinophils Absolute Auto 0.4 0.0 - 0.4 X10*3/uL [facility] Basophils Absolute Auto 0.1 0.0 - 0.2 X10*3/uL [facility] NRBC Abs Auto 0.000 0.0 - 0.012 X10*3/uL [facility] 08/03/2022 5:00 AM EDT 08/03/2022 5:47 AM EDT [facility] External Provider LAB BLO OD ORDERABLES Final Result Performing Organization Address City/[facility]/ZIP Co de Phone Number [facility] [address] [place] [phone] * (ABNORMAL) Magnesium (07/13/2022 8:29 AM EST) Magnesium 1.5(L) 1.6 - 2.6 mg/dL [facility] 07/13/2022 8:29 AM EST 07/13/2022 8:29 AM EST [facility] External Provider LAB BLO OD ORDERABLES Final Result Performing Organization Address [facility] [[email or web address]] Co de Phone Number [facility] [address] [place] [phone] documented in this encounter Visit Diagnoses Diagnosis Hypomagnesemia- Primary Disorders of magnesium metabolism documented in this encounter Care Teams Bullet Swaging Machine Adjuster Relationship Specialty Start Date End Date Shawna Gamble MD [address] [place] [address] PCP - General Family Medicine 05/13/22 [employer] 01/22/25 documented as of this encounter
--- OUTSIDE RECORDS SUMMARY | 2025-05-16 10:50 | XMS_ITS | Encounter Summary ---
Author Organization [employer] Address [address] [place] [address] [address] [place] [address] Care Team Providers Care Duck Operator Name Role Phone Shawna Gamble MD Primary Care Provider [phone] Encounter Details Date Type Department Care Team ([facility] st Contact Info) Description 07/13/2022 Abstract [facility] [address] [place] [address] Uriel Jacobs DDS [address] [place] [address] Social History Tobacco Use Types Packs/Day Years [...] on filedocumented in this encounter Care Teams Duck Operator Relationship Specialty Start Date End Date Shawna Gamble MD [address] [place] [address] PCP - General Family Medicine 05/13/22 [employer] 01/22/25 documented as of this encounter
--- OUTSIDE RECORDS SUMMARY | 2025-05-16 10:50 | XMS_ITS | Clinical Summary ---
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 03/30/20 Active nitroglycerin (Nitrostat) 0.4 MG SL tablet TAKE 1 TAB SUBLINGUALLY EVERY 5 MINS FOR UP TO 3 TABLETS MAX EVERY 30 DAYS NEEDED, DIRECTED 03/30/20 Active metFORMIN XR (Glucophage-XR ) 500 MG 24 hr tablet TAKE 2 TABLET BY ORAL ROUTE 2 TIMES EVERY DAY WITH THE EVENING MEAL 360 tablet 3 11/04/19 25 Active albuterol 108 (90 Base) MCG/ACT inhalerIndicat ions:Shortness of breath Inhale 2 puffs every 6 (six) hours if needed for wheezing. 18 g 11/04/192025 Active omeprazole (PriLOSEC) [address] capsule Take 1 capsule by mouth Once per day. 12/05/19 25 Active Linzess 145 MCG capsule take 1 capsule by mouth every day in the morning 12/29/19 25 Active memantine (Namenda) 5 MG tablet 01/04/20 25 Active lidocaine (Lidoderm) 5 % patchIndicatio ns:Right hip pain,Pain of left hip Apply 1 patch topically Once per day. Remove & discard patch within 12 hours or as directed by . 30 patch 3 01/11/20 25 Active Magnesium 400 MG capsuleIndicat ions:Hypomagne semia Take 1 capsule by mouth daily 90 capsule 3 01/27/20 25 Active loratadine (Claritin) 10 MG tabletIndicati ons:Seasonal allergies TAKE 1 TABLET BY MOUTH once daily as needed 90 tablet 1 01/27/20 25 Active Lidocaine Pain Relief 4 % patch APPLY 1 PATCH TOPICALLY DAILY NEEDED FOR PAIN 02/28/20 25 Active Magnesium Oxide -Mg Supplement 400 MG capsule Take 1 capsule by mouth Once per day. 01/27/20 25 Active lisinopril (Prinivil) 20 MG tablet Take 1 tablet (20 mg) by mouth Once per day. 90 tablet 3 03/14/20 25 2025 Active rivaroxaban (Xarelto) 2.5 MG tablet TAKE 1 TABLET BY MOUTH 2 TIMES DAILY 60 tablet 6 04/23/20 25 Active atorvastatin (Lipitor) 80 MG tabletIndicati ons:Atheroscle rosis of coronary artery of mechoopda heart, unspecified vessel or lesion type, unspecified whether angina present TAKE 1 TABLET BY MOUTH IN THE MORNING 90 tablet 3 04/23/20 25 Active empagliflozin (Jardiance) 10 MG TAKE 1 TABLET (10 MG) BY MOUTH ONCE PER DAY. 90 tablet 3 05/03/20 25 Active atorvastatin (Lipitor) 80 MG tabletIndicati ons:Atheroscle rosis of coronary artery of mechoopda heart, unspecified vessel or lesion type, unspecified whether angina present TAKE 1 TABLET (80 MG) BY MOUTH IN THE MORNING 90 tablet 3 04/07/20 24 2024 Discontinued(R eorder (will not trigger notification to Pharmacy)) Xarelto 2.5 MG tablet Take 1 tablet (2.5 mg) by mouth 2 times daily. 60 tablet 6 04/17/20 24 2024 Discontinued empagliflozin (Jardiance) 10 MG Take 1 tablet (10 mg) by mouth Once per day. 90 tablet 1 10/24/19 25 2024 Discontinued Active Problems Problem Noted Date Diagnosed Date [...] unspecified whether stage 3a or 3b CKD ([facility]) 10/18/2024 Chronic kidney disease, stage 2 (mild) [...] home PT to start soon through [facility] services Fractured dental worship with loss of materi al 10/20/2023 Drug-induced xerostomia 10/20/2023 Depression, recurrent 10/17/2023 Assessment & Plan (10/17/2023 5:39 PM EDT): On Elavil, Remeron, Duloxetine for pain, sleep, appetite Would not add additional agents at this time She denies SI/HI Dental caries 04/29/2023 History of coronary artery bypass surgery 2022 Overview (03/17/2023): 07/2022 at [facility] Chest pain on breathing 12/04/2022 Assessment [...] Encounters Date Type Department Care Team Description 05/03/2025 Telephone [facility] [address] [facility] [place] [address] Shawna Gamble MD Nurse Triage 05/03/2025 Refill [facility] [address] [facility] [place] [address] Shawna Gamble MD 04/22/2025 Refill [facility] [address] [place] [address] Shawna Gamble MD Atherosclerosis of coronary artery of mechoopda heart, unspecified vessel or lesion type, unspecified whether angina present 04/21/2025 Refill [facility] [address] [facility] [place] [address] Shawna Gamble MD Atherosclerosis of coronary artery of mechoopda heart, unspecified vessel or lesion type, unspecified whether angina present 04/20/2025 Telephone [facility] [address] [facility] [place] [address] Shawna Gamble MD fyi 04/06/2025 Orders Only GENERIC EXTERNAL DATA DEPARTMENT Provider, Generic External Data 04/06/2025 Telephone [facility] [place] [address] Shawna Gamble MD Nurse Triage 04/03/2025 2:00 PM EST Office Visit [facility] [place] [address] Amy Camara NP Type 2 diabetes mellitus with diabetic neuropathy, without long-term current use of insulin (HCC) (Primary Dx); Paronychia of great toe of left foot 04/03/2025 Telephone [facility] [address] [facility] [place] [address] Shawna Gamble MD VNA Request 04/03/2025 Travel 04/02/2025 Telephone [facility] [place] [address] Shawna Gamble MD Nurse Triage 03/27/2025 Telephone [facility] [place] [address] Shawna Gamble MD 03/26/[address] [address] Shawna Gamble MD Durable Medical Equipment (DME: [employer]) 03/23/2025 Telephone [facility] [address] [place] [address] Shawna Gamble MD Results 03/22/[address] [address] Shawna Gamble MD Prior Authorization 03/16/[address] [address] An Brown RN CCA form 03/15/[address] [address] Shawna Gamble MD 03/14/2025 3:45 PM EDT Office Visit [facility] [place] [address] Shawna Gamble MD Hypomagnesemia (Primary Dx); Type 2 diabetes mellitus with diabetic neuropathy, without long-term current use of insulin (HCC); Mixed conductive and sensorineural hearing loss of both ears; Muscle wasting and atrophy, not elsewhere classified, unspecified upper arm; History of fragility fracture; Chronic kidney disease, stage 2 (mild); Chronic constipation; Orthostatic hypotension; Essential hypertension; Unintentional weight loss; Peripheral arterial disease 03/14/2025 Refill [facility] [place] [address] Shawna Gamble MD 03/14/2025 Travel 03/13/[address] [address] Shawna Gamble MD chart prep 03/09/2025 Orders Only [address] [address] Shawna Gamble MD 03/06/2025 3:45 PM EDT Telemedicine [address] [address] Name, MD Robles Closed fracture of one rib of right side, initial encounter (Primary Dx); Rib pain 03/06/2025 Travel 02/27/2025 Orders Only GENERIC EXTERNAL DATA DEPARTMENT Provider, Generic External Data 02/27/[address] [address] Shawna Gamble MD fyi 02/27/[address] [address] Shawna Gamble MD Nurse Triage 02/22/[address] [address] Shawna Gamble MD fyi 02/22/[address] [address] Shawna Gamble MD nov recall from Last 3 Months Immunizations Immunization Administration [...] 2025 03/11/2021, 02/04/2021 Influenza Vaccine (#1) 2025 3, 03/04/2022, 03/04/2022, Additional history exists Diabetes: Hemoglobin A1C 04/10/202501/08/2 025, 10/18/2024, 12/08/2023, Additional history exists Eye Exam 06/21/2025 06/21/2023 Mammogram 06/30/2025 06/30/2024, 0209/2023, 03/13/2022, Additional history exists Depression Screening 10/18/2025 [...] Care Plan Weekly blood pressure task No Pikny Santiago Weekly blood pressure task Care Plan [...] chronic kidney disease No Luis Manuel Booth Weekly blood pressure task Care Plan Weekly blood pressure task No Jason Tariq Weekly blood pressure task Care Plan Weekly blood pressure task No Jason Tariq Patient has chronic kidney disease Care Plan Patient has chronic kidney disease No Jason Tariq Patient has chronic kidney disease Care Plan Patient has chronic kidney disease No Jason Tariq Weekly blood pressure task Care Plan Weekly blood pressure task No Paulette Alvarez LPN Weekly blood pressure task Care Plan Weekly blood pressure task No Paulette Alvarez LPN Patient has chronic kidney disease Care Plan Patient has chronic kidney disease No Paulette Alvarez LPN Patient has chronic kidney disease Care Plan Patient has chronic kidney disease No Paulette Alvarez LPN Weekly blood pressure task Care Plan Weekly blood pressure task No Colon Deanne Roa Weekly blood pressure task Care Plan Weekly blood pressure task No Colon Deanne Roa Patient has chronic kidney disease Care Plan Patient has chronic kidney disease No Colon Deanne Roa Patient has chronic kidney disease Care Plan Patient has chronic kidney disease No Colon Deanne Roa Procedures Procedure Name Priority Date/Time Associated Diagnosis Comments LOWER EXTREMITY VENOUS DUPLEX LEFT Routine 04/06/2025 2:34 PM EST XR FOOT 3+ VIEWS LEFT Routine 04/06/2025 1:30 PM EST URINALYSIS, COMPLETE, WITH REFLEX TO CULTURE Routine 04/06/2025 1:17 PM EST HIGH SENSITIVITY TROPONIN I Routine 04/06/2025 1:16 PM EST SED RATE BY MODIFIED WESTERGREN Routine 04/06/2025 1:16 PM EST C-REACTIVE PROTEIN Routine 04/06/2025 1: 16 PM EST COMPREHENSIVE METABOLIC PANEL Routine 04/06/2025 1:16 PM EST URIC ACID Routine 04/06/2025 1:16 PM EST CBC WITH AUTO DIFFERENTIAL Routine 04/06/2025 1:16 PM EST CULTURE, URINE, ROUTINE Routine 04/06/2025 12:00 AM EST POCT GLUCOSE (CPT-27019) Routine 04/03/2025 2:26 PM EST Type 2 diabetes mellitus with diabetic neuropathy, without long-term current use of insulin (HCC) CBC WITH AUTO DIFFERENTIAL Routine 03/19/2025 10:45 AM EST Hypomagnesemia MAGNESIUM Routine 03/19/2025 10:45 AM EST Hypomagnesemia POCT GLUCOSE (CPT-26207) Routine 03/14/2025 4:13 PM EDT Type 2 [...] AUTO DIFFERENTIAL Routine 02/27/2025 5:08 PM EDT POCT GLYCATED HEMOGLOBIN, TOTAL Routine 01/08/2025 3:48 [...] neuropathy, without long-term current use of insulin ([facility]) BI MAMMOGRAM SCREENING TOMOSYNTHESIS BILATERAL Routine [...] Recently Relevant to Health Maintenance Results * Lower Extremity Venous Duplex (04/06/2025 2:34 PM EST) 04/06/2025 2:34 PM EST [facility] - 04/06/2025 3:06 PM EST [address] [address] Ultrasound Report Signed Patient: Sonia Marcano MR#: [id number] 5 : 1955 Acct:[id number] Age/Sex: 69 / F ADM Date: 04/06/25 Loc: .ED Attending Dr: Ordering Physician: Bry Spencer Date of Service: 04/06/25 Procedure(s): US venous duplex [facility] Accession Number(s): [id number] cc: Bry Spencer; Shawna Gamble Reason for Exam: left foot redness and swelling. DVT EXAMINATION: US TRIPLEX LOWER EXTREMITY, LEFT CLINICAL INFORMATION: Left foot swelling and redness. COMPARISON: None available. TECHNIQUE: Color-flow triplex imaging with spectral analysis and compression Doppler were performed on the left lower extremity. FINDINGS: Respiratory variation, normal compression and augmented flow are noted throughout the left lower extremity. The visualized common femoral vein, superficial femoral vein, profunda femoral vein, popliteal vein and midcalf peroneal and posterior tibial venous segments show no evidence of deep venous thrombosis. There is no Interiano's cyst. US/US venous duplex LE LT IMPRESSION: No evidence of deep venous thrombosis involving the left lower extremity. Electronically signed by: Te Rubalcava MD 04/06/2025 03:04 PM EST RP Dictated By: Te Rubalcava MD Signed By: <Electronically signed by Te Rubalcava MD in OV> 04/06/25 1504 DD/ 1434 TD/TT: 04/06/25 1443 Media Producer: Procedure Note Donotuseinterpreter, Image - 04/06/2025 [place] [address] Ultrasound Report Signed Patient: Sonia MarcanoMR#: [id number] 5 : 4Acct:[id number] Age/Sex: 69 / FADM Date: 04/06/25 Loc: .ED Attending Dr: Ordering Physician: Bry Spencer Date of Service: 04/06/25 Procedure(s): US venous duplex LE LT Accession Number(s): [id number] cc: Bry Spencer; Shawna Gamble Reason for Exam: left foot redness and swelling. DVT EXAMINATION: US TRIPLEX LOWER EXTREMITY, LEFT CLINICAL INFORMATION: Left foot swelling and redness. COMPARISON: None available. TECHNIQUE: Color-flow triplex imaging with spectral analysis and compression Doppler were performed on the left lower extremity. FINDINGS: Respiratory variation, normal compression and augmented flow are noted throughout the left lower extremity. The visualized common femoral vein, superficial femoral vein, profunda femoral vein, popliteal vein and midcalf peroneal and posterior tibial venous segments show no evidence of deep venous thrombosis. There is no Interiano's cyst. US/US venous duplex LE LT IMPRESSION: No evidence of deep venous thrombosis involving the left lower extremity. Electronically signed by: Te Rubalcava MD 04/06/2025 03:04 PM EST RP Dictated By: Te Rubalcava MD Signed By: <Electronically signed by Te Rubalcava MD in OV> 04/06/25 1504 DD/ 1434 TD/TT: 04/06/25 1443 Media Producer: us [facility] External Provider CV VASC ULAR PROCEDURES Final Result [facility] [address] [place] [address] * XR Foot 3+ Views Left (04/06/2025 1:30 PM EST) Anatomical Region Laterality Modality Lower Extremities, Foot Left Radiogra phic Imaging 04/06/2025 1:30 PM EST Narrative 04/06/2025 1:51 PM EST [address] [address] XRay Report Signed Patient: Sonia Marcano MR#: [id number] 5 : 1955 Acct:[id number] Age/Sex: 69 / F ADM Date: 04/06/25 Loc: HO.ED Attending Dr: Ordering Physician: Bry Spencer Date of Service: 04/06/25 Procedure(s): XR foot LT min 3V Accession Number(s): [id number] cc: Bry Spencer; Shawna Gamble Reason for [...] 04/06/25 1348 DD/ 1330 TD/TT: 04/06/25 1333 Media Producer: Procedure Note Donotuseinterpreter, Image - 04/06/[address] [address] XRay Report Signed Patient: Sonia MarcanoMR#: [id number] 5 : 4Acct:[id number] Age/Sex: 69 / FADM Date: 04/06/25 Loc: HO.ED Attending Dr: Ordering Physician: Bry Spencer Date of Service: 04/06/25 Procedure(s): XR foot LT min 3V Accession Number(s): [id number] cc: Bry Spencer; Shawna Gamble Reason for [...] 04/06/25 1348 DD/ 1330 TD/TT: 04/06/25 1333 Media Producer: us [facility] External Provider IMG XR PROCEDURES Final Result * (ABNORMAL) Urinalysis, Complete, with Reflex to Culture (04/06/2025 1:17 PM EST) Only the most recent of2 resultswithin the time period is included. Color Urine Yellow [facility] Appearance Urine Clear [facility] PH 8.5 5.0 - 9.0 [facility] Glucose Urine UA >=1000(A) Negative mg/dL [facility] Urine Blood Large (3+)(A) Negative [facility] Specific [place] - Urine 1.015 1.005 - 1.025 [facility] Urine Protein Trace Neg-Trace mg/dL [facility] Urine Ketones Negative Negative mg/dL [facility] Nitrite Urine Negative Negative [facility] Leukocyte Esterase Urine Moderate (2+)(A) Negative [facility] RBC Urine 3-5(A) 0 - 2 /HPF [facility] Urine WBC >50(A) 0 - 5 /HPF [facility] Urine Squamous Epithelial Cell 0-2 0 - 2 /HPF [facility] Urine Bacteria 4+ None Seen [facility] Hyaline Casts, Urine 0-2 0 - 2 /LPF [facility] 04/06/2025 1:17 PM EST 04/06/2025 1:22 PM EST Narrative [facility] - 04/06/2025 1:37 PM EST [id number], Clean Catch Generic External Data Provider LAB URINE ORDERAB LES Final Result [facility] [address] [place] [phone] * High Sensitivity Troponin I (04/06/2025 1:16 PM EST) Only the most recent of2 resultswithin the time period is included. TROPONIN I HIGH SENSITIVITY <2.7 <3.5 - 17.0 ng/L [facility] Comment:The Goins high sens itivity Troponin-I results should beused in conjunction with other diagnostic information suchas ECG, clinical observations and information, and patientsymptoms to aid in the diagnosis of [place]. 04/06/2025 1:16 PM EST 04/06/2025 4:11 PM EST us Generic External Data Provider LAB BLOOD ORDERAB LES Final Result [facility] [address] [place], [place] [phone] * (ABNORMAL) CBC auto differential (04/06/2025 1:16 PM EST) Only the most recent of3 resultswithin the time period is included. Pathologist [facility] White Blood Count 13.9(H) 4.8 - 10.8 X10*3/uL [facility] Red Blood Count 4.28 4.20 - 5.50 X10*6/uL [facility] Hemoglobin 11.8(L) 12.0 - 16.0 g/dl [facility] Hematocrit 37.3 37.0 - 47.0 % [facility] Mean Corpuscular Volume 87.1 80.0 - 98.0 fL [facility] Mean Corpuscular Hemoglobin 27.6 27.0 - 33.0 pg [facility] Mean Corpuscular HGB Conc 31.6 31.0 - 35.0 g/dl [facility] Red Cell Distribution Width 15.9 11.0 - 16.0 % [facility] Platelet Count 291 160 - 400 X10*3/uL [facility] Mean Platelet Volume 11.5 9.4 - 12.3 fL [facility] Neutrophils Percent Auto 77.6(H) 45 - 73 % [facility] Imm Gran Pct Auto 0.4 0.0 - 0.4 % [facility] Lymphocytes Percent Auto 12.4(L) 20 - 40 % [facility] Monocytes Percent Auto 6.8 2 - 11 % [facility] Eosinophils Percent Auto 1.9 0 - 4 % [facility] Basophils Percent Auto 0.9 0 - 2 % [facility] NRBC Pct Auto 0.0 0.0 - 0.2 /100WBC [facility] Neutrophils Absolute Auto 10.8(H) 2.0 - 8.3 x10*3/uL [facility] Imm Gran Abs Auto 0.05(H) 0.00 - 0.03 X10*3/uL [facility] Lymphocytes Absolute Auto 1.7 1.2 - 4.9 X10*3/uL [facility] Monocytes Absolute Auto 1.0 0.1 - 1.2 X10*3/uL [facility] Eosinophils Absolute Auto 0.3 0.0 - 0.4 X10*3/uL [facility] Basophils Absolute Auto 0.1 0.0 - 0.2 X10*3/uL [facility] NRBC Abs Auto 0.000 0.0 - 0.012 X10*3/uL [facility] 04/06/2025 1:16 PM EST 04/06/2025 1:22 PM EST us Generic External Data Provider LAB BLOOD ORDERAB LES Final Result [facility] [address] [place] [phone] * (ABNORMAL) Sed Rate by Modified Reshmaren (04/06/2025 1:16 PM EST) Only the most recent of2 resultswithin the time period is included. Erythrocyte Sedimentation Rate 25(H) 0 - 20 MM/HR [facility] Comment:Patients with polycy themia and many hemoglobin abnormalitiesmay have depressed sed rates whereas patients with anemiamay have elevated sed rates. 04/06/2025 1:16 PM EST 04/06/2025 1:22 PM EST us Generic External Data Provider LAB BLOOD ORDERAB LES Final Result Performing Organization Address City/[facility]/ZIP Co de Phone Number [facility] [address] [place] [address] [phone] * C-reactive Protein (04/06/2025 1:16 PM EST) Only the most recent of2 resultswithin the time period is included. Pathologist [facility] C Reactive Protein <0.10 < or = 0.50 mg/dL [facility] 04/06/2025 1:16 PM EST 04/06/2025 1:22 PM EST Generic External Data Provider LAB BLOOD ORDERAB LES Final Result Performing Organization Address [facility]/ZIP Co de Phone Number [facility] [address] [place] [address] [phone] * Uric acid (04/06/2025 1:16 PM EST) Pathologist [facility] Uric Acid 4.3 2.4 - 5.7 mg/dL [facility] 04/06/2025 1:16 PM EST 04/06/2025 1:22 PM EST Generic External Data Provider LAB BLOOD ORDERAB LES Final Result Performing Organization Address City/[facility]/ZIP Co de Phone Number [facility] [address] [place] [address] [phone] * (ABNORMAL) Comprehensive Metabolic Panel (04/06/2025 1:16 PM EST) Pathologist [facility] Sodium 136 135 - 145 mmol/L [facility] Potassium 4.6 3.3 - 5.1 mmol/L [facility] Chloride 98 96 - 108 mmol/L [facility] Carbon Dioxide 28 22 - 29 mmol/L [facility] Anion Gap 15 12 - 20 [facility] Urea Nitrogen (BUN) 17(H) 9 - 16 mg/dL [facility] Creatinine, Serum 0.93 0.5 - 1.4 mg/dL [facility] Creatinine Clr Calc Pharmacy 45.8 [facility] Comment:Provided height and weight: 160.02 cm,60.781 kg.eGFR (calculated from the MDRD study equation) and eCrCl(calculated from the Cockcroft-Gault equation) are based ondifferent parameters and may not yield comparable results.If eCrCl result is absurd, please check patient'sheight/weight. Estimated Glomerular Filt Rate 59 [facility] Comment:Chronic Kidney Disea se: Estimated GFR < 60 mL/min/1.09w0Rwlfvw Kidney Disease: Estimated GFR < 15 mL/min/1.73m2 Glucose 343(H) 60 - 115 mg/dL [facility] Calcium 10.0 8.4 - 10.2 mg/dL [facility] Bilirubin, Total 0.3 0.0 - 1.0 mg/dL [facility] Aspartate Amino Transferase 49(H) 5 - 31 U/L [facility] Alanine Aminotransferase 37(H) 0 - 31 U/L [facility] Total Protein 8.0 6.5 - 8.0 g/dL [facility] Albumin Level 4.7 3.5 - 5.0 g/dL [facility] Alkaline Phosphatase 169(H) 39 - 117 U/L [facility] 04/06/2025 1:16 PM EST 04/06/2025 1:22 PM EST us Generic External Data Provider LAB BLOOD ORDERAB LES Final Result [facility] [address] [place] [phone] * Culture, Urine, Routine (04/06/2025 12:00 AM EST) Urine Urine specimen obtained by clean catch procedure / Unknown 04/06/2025 04/06/2025 Comment:UACC Narrative [facility] - 04/07/2025 1:41 PM EST Strep agalactiae (Grp B) Quant > 100,000 cfu/mL Susc N/A Susceptibility not routinely performed on this isolate. Specimen Source: Urine clean catch us Generic External Data Provider LAB MICROBIOLOGY - GENERAL ORDERABLES Final Result Performing Organization Address [facility]/ZIP Co de Phone Number [facility] [address] [place] [phone] * POCT Glucose (04/03/2025 2:26 PM EST) Only the most recent of2 resultswithin the time period is included. Glucose Blood, POC 186 60 - 200 mg/dL QC Media Lot # [id number] Lot# Expiration Date 196 Blood Capillary blood specimen / Unknown 04/03/2025 2:26 PM EST Amy Camara NP POINT OF CARE TEST ENTER/EDIT OR DERABLES Final Result * Magnesium (03/19/2025 10:45 AM EST) Pathologist [facility] Magnesium 1.8 1.6 - 2.6 mg/dL [facility] Blood Venous blood specimen / Unknown 03/19/2025 10:45 AM EST 03/19/2025 10:45 AM EST Shawna Gamble MD LAB BLOOD ORDERABLES Final Res ult Performing Organization Address City/[facility] Co de Phone Number [facility] [address] [place] [phone] * CT Head w/o Contrast (02/27/2025 7:06 PM EDT) Anatomical Region Laterality Modality Head, Neck Computed Tomogra phy 02/27/2025 7:06 PM EDT Narrative 02/27/2025 7:07 PM EDT [address] [address] [address] Scan Report Signed Patient: Sonia Marcano MR#: [id number] 5 : 1955 Acct:[id number] Age/Sex: 69 / F ADM Date: 02/27/25 Loc: HO.ED Attending Dr: Ordering Physician: Selena Galo MD Date of Service: 02/27/25 Procedure(s): CT head/brain wo IV con Accession Number(s): [id number] cc: Shawna Gamble; Selena Galo MD Report Number: [id number]: Total DLP = 0.00 mGy-cm Reason for [...] in OV> 02/27/251906 DD/ 05 TD/TT: 02/27/251905 Media Producer: Procedure Note Donotuseinterpreter, Image - 02/27/[address] [place] [address] [address] Scan Report Signed Patient: Sonia MarcanoMR#: [id number] 5 : 1955cct:[id number] Age/Sex: 69 / FADM Date: 02/27/25 Loc: .ED Attending Dr: Ordering Physician: Selena Galo MD Date of Service: 02/27/25 Procedure(s): CT head/brain wo IV con Accession Number(s): [id number] cc: Shawna Gamble; Selena Galo MD Report Number: [id number]: Total DLP = 0.00 mGy-cm Reason for [...] in OV> 02/27/251906 DD/ 05 TD/TT: 02/27/251905 Media Producer: [facility] External Provider IMG CT PROCEDURES Final Result * CT Chest w/ Contrast (02/27/2025 7:05 PM EDT) Anatomical Region Laterality Modality Body, Chest Computed Tomogra phy 02/27/2025 7:05 PM EDT Narrative 02/27/2025 7:06 PM EDT [place] [address] [address] Scan Report Signed Patient: Sonia Marcano MR#: [id number] 5 : 1955 Acct:[id number] Age/Sex: 69 / F ADM Date: 02/27/25 Loc: HO.ED Attending Dr: Ordering Physician: Selena Galo MD Date of Service: 02/27/25 Procedure(s): CT chest w IV con Accession Number(s): [id number] cc: Shawna Gamble; Selena Glao MD Report Number: [id number]: Total DLP = 0.00 mGy-cm Reason for [...] in OV> 02/27/251905 DD/ 04 TD/TT: 02/27/251904 Media Producer: Procedure Note Donotuseinterpreter, Image - 02/27/[address] [place] [address] [address] Scan Report Signed Patient: Sonia MarcanoMR#: [id number] 5 : 1955cct:[id number] Age/Sex: 69 / FADM Date: 02/27/25 Loc: .ED Attending Dr: Ordering Physician: Selena Galo MD Date of Service: 02/27/25 Procedure(s): CT chest w IV con Accession Number(s): [id number] cc: Shawna Gamble; Selena Galo MD Report Number: [id number]: Total DLP = 0.00 mGy-cm Reason for [...] in OV> 02/27/251905 DD/ 04 TD/TT: 02/27/251904 Media Producer: [facility] External Provider IMG CT PROCEDURES Final Result * CT Cervical Spine w/o Contrast (02/27/2025 7:00 PM EDT) Anatomical Region Laterality Modality Spine, C-spine Computed Tomogra phy 02/27/2025 7:00 PM EDT Narrative 02/27/2025 7:01 PM EDT [place] [address] [address] Scan Report Signed Patient: Sonia Marcano MR#: [id number] 5 : 1955 Acct:[id number] Age/Sex: 69 / F ADM Date: 02/27/25 Loc: HO.ED Attending Dr: Ordering Physician: Selena Galo MD Date of Service: 02/27/25 Procedure(s): CT cervical spine wo IV con Accession Number(s): [id number] cc: Shawna Gamble; Selena Galo MD Report Number: [id number]: Total DLP = 0.00 mGy-cm Reason for [...] or effusion at the lung apices. C1-2: Pcqa-kh-xdmyfknv anterior osteoarthrosis of the mtnc-ll-gsitrfec mineralized pannus formation surrounding the odontoid. IMPRESSION: 1. Grade 1 retrolisthesis of C5 over C6. 2. 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 3. No acute cervical spine fracture or dislocation. This document has been electronically signed by: Saeed Mcmahon MD on 02/27/2025 19:00:13 Dictated By: Saeed Mcmahon MD Signed By: <Electronically signed by Saeed Mcmahon MD in OV> 02/27/251900 DD/ 99 TD/TT: 02/27/251899 Media Producer: Procedure Note Donotuseinterpreter, Image - 02/27/[address] [place] [address] [address] Scan Report Signed Patient: Italia Marcano#: [id number] 5 : 4Acct:[id number] Age/Sex: 69 / FADM Date: 02/27/25 Loc: HO.ED Attending Dr: Ordering Physician: Selena Galo MD Date of Service: 02/27/25 Procedure(s): CT cervical spine wo IV con Accession Number(s): [id number] cc: Shawna Gamble; Selena Galo MD Report Number: [id number]: Total DLP = 0.00 mGy-cm Reason for [...] or effusion at the lung apices. C1-2: Qjor-xy-tqikubdw anterior osteoarthrosis of the yejv-yw-gbophtja mineralized pannus formation surrounding the odontoid. IMPRESSION: 1. Grade 1 retrolisthesis of C5 over C6. 2. 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 3. No acute cervical spine fracture or dislocation. This document has been electronically signed by: Saeed Mcmahon MD on 02/27/2025 19:00:13 Dictated By: Saeed Mcmahon MD Signed By: <Electronically signed by Saeed Mcmahon MD in OV> 02/27/251900 DD/ 99 TD/TT: 02/27/251899 Media Producer: [facility] External Provider IMG CT PROCEDURES Final Result * CT Abdomen Pelvis w/ Contrast (02/27/2025 6:59 PM EDT) Anatomical Region Laterality Modality Body, Pelvis, Abdomen Computed T omography 02/27/2025 6:59 PM EDT Narrative 02/27/2025 7:00 PM EDT [place] [address] [address] Scan Report Signed Patient: Sonia Marcano MR#: [id number] 5 : 1955 Acct:[id number] Age/Sex: 69 / F ADM Date: 02/27/25 Loc: HO.ED Attending Dr: Ordering Physician: Selena Galo MD Date of Service: 02/27/25 Procedure(s): CT abdomen pelvis w IV con Accession Number(s): [id number] cc: Shawna Gamble; Selena Galo MD Report Number: [id number]: Total DLP = 0.00 mGy-cm Reason for [...] in OV> 02/27/251899 DD/ 58 TD/TT: 02/27/251858 Media Producer: Procedure Note Donotuseinterpreter, Image - 02/27/[address] [address] [address] Scan Report Signed Patient: Sonia MarcanoMR#: [id number] 5 : 4Acct:[id number] Age/Sex: 69 / FADM Date: 02/27/25 Loc: .ED Attending Dr: Ordering Physician: Selena Galo MD Date of Service: 02/27/25 Procedure(s): CT abdomen pelvis w IV con Accession Number(s): [id number] cc: Shawna Gamble; Selena Galo MD Report Number: [id number]: Total DLP = 0.00 mGy-cm Reason for [...] MD on 02/27/2025 18:59:48 Dictated By: Saeed Mcmaohn MD Signed By: <Electronically signed by Saeed Mcmahon MD in OV> 02/27/251899 DD/ 58 TD/TT: 10/14/25 1859 Media Producer: [facility] External Provider IMG CT PROCEDURES Final Result * Hold Lavender - Possible Hematology (02/27/2025 5:08 PM EDT) Pathologist [facility] Hold Lavender - Possible Hematololgy SEE NOTE [facility] Comment:Specimen will be hel d untested for 8 hours. Call Hematologyif testing is desired. 02/27/2025 5:08 PM EDT 02/27/2025 5:21 PM EDT Generic External Data Provider HISTORICAL/NON OR DERABLE LABS Final Result Performing Organization Address City/[facility]/ZIP Co de Phone Number [facility] [address] [place] [address] [phone] * Lipase (02/27/2025 5:08 PM EDT) [facility] Lipase 38 8 - 78 U/L [facility] 02/27/2025 5:08 PM EDT 02/27/2025 5:20 PM EDT Generic External Data Provider LAB BLOOD ORDERAB LES Final Result Performing Organization Address [facility]/ZIP Co de Phone Number [facility] [address] [place] [address] [phone] * (ABNORMAL) Hepatic Function Panel (02/27/2025 5:08 PM EDT) Pathologist [facility] Bilirubin, Total 0.3 0.0 - 1.0 mg/dL [facility] Bilirubin, Direct 0.1 0.0 - 0.5 mg/dL [facility] Aspartate Amino Transferase 35(H) 5 - 31 U/L [facility] Comment:Slight Hemolysis.Int erpret result with caution. Alanine Aminotransferase 24 0 - 31 U/L [facility] Total Protein 7.4 6.5 - 8.0 g/dL [facility] Albumin Level 4.3 3.5 - 5.0 g/dL [facility] Alkaline Phosphatase 158(H) 39 - 117 U/L [facility] 02/27/2025 5:08 PM EDT 02/27/2025 5:20 PM EDT Generic External Data Provider LAB BLOOD ORDERAB LES Final Result [facility] [address] [place] [address] [phone] * (ABNORMAL) Basic Metabolic Panel (02/27/2025 5:08 PM EDT) Sodium 140 135 - 145 mmol/L [facility] Potassium 4.1 3.3 - 5.1 mmol/L [facility] Comment:Slight Hemolysis.Int erpret result with caution. Chloride 102 96 - 108 mmol/L [facility] Carbon Dioxide 28 22 - 29 mmol/L [facility] Anion Gap 14 12 - 20 [facility] Urea Nitrogen (BUN) 21(H) 9 - 16 mg/dL [facility] Creatinine, Serum 0.98 0.5 - 1.4 mg/dL [facility] Creatinine Clr Calc Pharmacy 45.3 [facility] Comment:Provided height and weight: 157.48 cm,61.235 kg.eGFR (calculated from the MDRD study equation) and eCrCl(calculated from the Cockcroft-Gault equation) are based ondifferent parameters and may not yield comparable results.If eCrCl result is absurd, please check patient'sheight/weight. Estimated Glomerular Filt Rate 56 [facility] Comment:Chronic Kidney Disea se: Estimated GFR < 60 mL/min/1.57x7Jnsscg Kidney Disease: Estimated GFR < 15 mL/min/1.73m2 Glucose 120(H) 60 - 115 mg/dL [facility] Calcium 9.7 8.4 - 10.2 mg/dL [facility] 02/27/2025 5:08 PM EDT 02/27/2025 5:20 PM EDT us Generic External Data Provider LAB BLOOD ORDERAB LES Final Result [facility] [address] [place] [address] [phone] * (ABNORMAL) POCT HGB A1C (01/08/2025 3:48 PM EDT) Hemoglobin A1C 8.3(A) 4.0 - 5.7 % Blood 01/08/2025 3:48 PM EDT Shawna Gamble MD POINT OF CARE TEST ENTER/EDIT ORDERABLES Final Result * (ABNORMAL) Lipid Panel, Standard (10/20/2024 10:23 AM EDT) Triglycerides 98 <150 mg/dL [facility] Comment:Desirable Triglyceri de: less than 150 mg/dLBorderline High Triglyceride 150-199 mg/dLHigh Triglyceride: 200-499 mg/dLVery High Triglyceride: greater than or equal to 5OO mg/dL Cholesterol 103 <200 mg/dL [facility] Comment:Desirable Cholestero l: less than 200 mg/dLBorderline High Cholesterol: 200-239 mg/dLHigh Cholesterol: greater than 239 mg/dL LDL Cholesterol Calculated 44 <100 mg/dL [facility] Comment:Desirable LDL: less than 100 mg/dLNear Optimal/Above Optimal LDL: 110- 129 mg/dLBorderline High LDL: 130-159 mg/dLHigh LDL: 160-189 mg/dLVery High LDL: greater than or equal to 190 mg/dL HDL Cholesterol 40(L) >40 mg/dL [facility] Comment:Desirable HDL: great er than 40 mg/dL Note: This HDL assay may give artificially low results in patients with liver disease. Blood Venous blood specimen / Unknown 10/20/2024 10:23 AM EDT 10/20/2024 10:23 AM EDT Shawna Gamble MD LAB BLOOD ORDERABLES Final Res ult [facility] [address] [place] [address] [phone] * (ABNORMAL) Albumin, Random Urine W/Creatinine (10/20/2024 10:18 AM EDT) Creatinine, Urine 54.62 mg/dL [facility] Microalbumin Urine 75.0 mg/L [facility] Microalbum Creatinine Ratio Ur 137.3(H) <30 ug/mg cr [facility] Comment:Albumin/Creatinine R atio Reference Ranges: Normal: < 30 ug/mg creatinine Microalbuminuria: 30 - 300 ug/mg creatinineClinical Albuminuria: > 300 ug/mg creatinine Urine (Urine, Random) 10/20/2024 10:18 AM EDT 10/20/2024 11:55 AM EDT us Shawna Gamble MD LAB URINE ORDERABLES Final Res ult [facility] [address] [place] [address] [phone] * BI Mammogram Screening Tomosynthesis Bilateral (06/30/2024 2:15 PM EST) Anatomical Region Laterality Modality Breast Bilateral Mammography 06/30/2024 2:15 PM EST Narrative 07/08/2024 1:56 PM EST [facility] [address] [place] [address] Mammography Report Signed Patient: Sonia Marcano MR#: [id number] 5 : 1955 Acct:[id number] Age/Sex: 68 / F ADM Date: 06/30/24 Loc: HO.MAMMO Attending Dr: Shawna Gamble MD Ordering Physician: Shawna Gamble Results: 1Negative Date of Service: 06/30/24 Follow Up: 1 Year From Orig ina Mammogram Procedure(s): MM tomosynthesis screening BI Accession Number(s): [id number] cc: Shawna Gamble EXAMINATION: MM SCREENING DIGITAL [...] 07/08/24 1353 DD/ 1415 TD/TT: 06/30/24 1426 Media Producer: Procedure Note Donotuseinterpreter, Image - 07/08/2024 [facility] [address] [place], [place] [address] Mammography Report Signed Patient: Sonia MarcanoMR#: [id number] 5 : 4Acct:[id number] Age/Sex: 68 / FADM Date: 06/30/24 Loc: BarbMAMMO Attending Dr: Shawna Gamble MD Ordering Physician: Tera Gambleults: 1Negative Date of Service: 06/30/24Follow Up: 1 Year From Orig inal Mammogram Procedure(s): MM tomosynthesis screening BI Accession Number(s): [id number] cc: Shawna Gamble EXAMINATION: MM SCREENING DIGITAL [...] 07/08/24 1353 DD/ 1415 TD/TT: 06/30/24 1426 Media Producer: Shawna Gamble MD IMG BI PROCEDURES Edited Resul t - Final * Hepatitis C Ab (10/30/2022 9:18 AM EDT) Hepatitis C Antibody Nonreactive Nonreactive [facility] Comment:Antibodies to HCV no t detected; does not exclude early acuteHCV infection. 10/30/2022 9:18 AM EDT 10/30/2022 9:18 AM EDT [facility] External Provider LAB BLO OD ORDERABLES Final Result [facility] [address] [place] [address] [phone] * Hm Colonoscopy (10/11/2020 9:13 AM [...] 04/06/2025 Patient has chronic kidney disease 04/06/2025 Weekly blood pressure task 04/20/2025 Weekly blood pressure task 04/20/2025 Patient has chronic kidney disease 04/20/2025 Patient has chronic kidney disease 04/20/2025 Weekly blood pressure task 04/23/2025 Weekly blood pressure task 04/23/2025 Patient has chronic kidney disease 04/23/2025 Patient has chronic kidney disease 04/23/2025 Weekly blood pressure task 05/03/2025 Weekly blood pressure task 05/03/2025 Patient has chronic kidney disease 05/03/2025 Patient has chronic kidney disease 05/03/2025 Insurance [facility] [employer] ([place]) [place] [id number] [place] [facility] - [facility] * Guarantor: Sonia Marcano Account Type Relation to Patient Date of Phone Billing Address Personal/Family [facility] [address] [facility] [place] Care Teams Car Body Mechanic Relationship Specialty Start Date End Date Shawna Gamble MD [address] [place] [address] [place] [address] PCP - General Family Medicine 05/13/22 [email or web address] 01/22/25
--- OUTSIDE RECORDS SUMMARY | 2025-05-16 10:50 | XMS_ITS | Encounter Summary ---
Author Organization [employer] Address [address] [place] [address] 7t [place] [address] Care Team Providers Care Core Maker Helper Name Role Phone Shawna Gamble MD Primary Care Provider [phone] Reason for Visit * Reason Onset Date Comments requesting script 05/13/2022 Encounter Details Date Type Department Care Team ([facility] st Contact Info) Description 05/13/2022 Telephone [facility] [address] [place] [address] Makenna Trinidad MD requesting script Social History [...] PM EST TC place to pt at [phone] via [facility] Supervisor. Pt states she's in need of body [...] send to medline Please contact pt at [phone] documented in this encounter Plan of Treatment Not on file documented as of this encounter Visit Diagnoses Not on filedocumented in this encounter Care Teams Core Maker Helper Relationship Specialty Start Date End Date Shawna Gamble MD [address] [place] [address] PCP - General Family Medicine 05/13/22 [employer] 01/22/25 documented as of this encounter
--- OUTSIDE RECORDS SUMMARY | 2025-05-16 10:50 | XMS_ITS | Encounter Summary ---
Author Organization [employer] Address [address] [place] [address] 7t [place] [address] Care Team Providers Care Campus Interviews Intern Name Role Phone Makenna Trinidad MD [facility] Primary Care Provider [phone] Encounter Details Date Type Department Care Team [...] on filedocumented in this encounter Care Teams Campus Interviews Intern Relationship Specialty Start Date End Date Makenna Trinidad MD PCP - General Family Medicine 03/24/19 05/12/22 Shawna Gamble MD [address] [place] [address] PCP - General Family Medicine 05/13/22 [employer] 01/22/25 documented as of this encounter
--- OUTSIDE RECORDS SUMMARY | 2025-05-16 10:50 | XMS_ITS | Encounter Summary ---
Author Organization [employer] Address [address] [facility] 7t [place] [address] Care Team Providers Care Pharmacy Billing Adjudicator Name Role Phone Shawna Gamble MD Primary Care Provider [phone] Encounter Details Date Type Department Care Team ([facility] st Contact Info) Description 11/07/2024 Orders Only [facility] [address] [place], [place] [phone] Shawna Gamble MD [address] [place] [address] Hypomagnesemia (Primary Dx) Social History Tobacco Use [...] EDT) Magnesium 1.7 1.6 - 2.6 mg/dL [facility] Blood Venous blood specimen / Unknown 12/28/2024 3:06 PM EDT 12/28/2024 3:06 PM EDT us Shawna Gamble MD LAB BLOOD ORDERABLES Final Res ult [facility] [address] [place] [phone] documented in this encounter Visit Diagnoses Diagnosis Hypomagnesemia- Primary Disorders of magnesium metabolism documented in this encounter Additional Health Concerns Assessment Noted Time PHQ-9 Depression Total Score: 6 10/19/19 25 11:41 AM EDT documented as of this encounter Care Teams Pharmacy Billing Adjudicator Relationship Specialty Start Date End Date Shawna Gamble MD [address] [place] [address] PCP - General Family Medicine 05/13/22 [employer] 01/22/25 documented as of this encounter
--- OUTSIDE RECORDS SUMMARY | 2025-05-16 10:50 | XMS_ITS | Encounter Summary ---
Author Organization [employer] Address [address] [place] [address] 7 [place] [address] Care Team Providers Care Beveling And Edging Machine Operator Name Role Phone Shawna Gamble MD Primary Care Provider [phone] Reason for Visit * Reason Onset Date Comments Durable Medical Equipment 07/03/2022 Encounter Details Date Type Department Care Team ([facility] st Contact Info) Description 07/03/2022 Telephone [facility] [address] [place], [place] [phone] Shawna Gamble MD [address] [place] [address] Durable Medical Equipment Social History Tobacco Use [...] 07/15/2022 2:22 PM EST Form received from [employer] for bed pads for signature * Telephone [...] on filedocumented in this encounter Care Teams Beveling And Edging Machine Operator Relationship Specialty Start Date End Date Shawna Gamble MD [address] [place] [address] PCP - General Family Medicine 05/13/22 [employer] 01/22/25 documented as of this encounter
--- OUTSIDE RECORDS SUMMARY | 2025-05-16 10:50 | XMS_ITS | Clinical Summary ---
Author Organization [facility] Address [address] [address] Phone Care Team Providers Care Diamond Die Driller Name Role Phone Shawna Gamble MD Primary [...] the rectum 3 Active Cholecalciferol 250 MCG (22451 UT) capsule TAKE 1 CAPSULE BY MOUTH [...] bypass grafting 12/1503/11/2023 Overview (03/11/2023): 07/2022 at [facility] Chest pain on breathing 12/04/2022 03/11/20 [...] 50+ Years Completed 04/02/2021, 05/11/2019, 03/02/2002 Insurance [facility] ([id number]) [place] [id number] [facility] ([id number]) [place] [id number] Care Teams Diamond Die Driller Relationship Specialty Start Date End Date Shawna Gamble MD [address] [place] [address] PCP - General Deli Slicer 02/16/24
--- OUTSIDE RECORDS SUMMARY | 2025-05-16 10:50 | XMS_ITS | Encounter Summary ---
Author Organization [employer] Address [address] [facility] 7t [place] [address] Care Team Providers Care School Of Nursing Director Name Role Phone Shawna Gamble MD Primary Care Provider [phone] Encounter Details Date Type Department Care Team ([facility] st Contact Info) Description 10/20/2024 Orders Only [facility] [address] [place], [place] [phone] Shawna Gamble MD [address] [place] [address] Hypomagnesemia (Primary Dx) Social History Tobacco Use [...] EDT) Magnesium 1.3(LL) 1.6 - 2.6 mg/dL [facility] Comment:Critical value for M AG: Results called to and read back by:Preethi Suarez Person calling: NETO Date: 10/27/24 Time: 1414 Blood Venous blood specimen / Unknown 10/27/2024 12:45 PM EDT 10/27/2024 12:45 PM EDT us Shawna Gamble MD LAB BLOOD ORDERABLES Final Res ult [facility] [address] [place] [address] [phone] documented in this encounter Visit Diagnoses Diagnosis Hypomagnesemia- Primary Disorders of magnesium metabolism documented in this encounter Additional Health Concerns Assessment Noted Time PHQ-9 Depression Total Score: 6 10/19/19 25 11:41 AM EDT documented as of this encounter Care Teams School Of Nursing Director Relationship Specialty Start Date End Date Shawna Gamble MD [address] [place] [address] PCP - General Family Medicine 05/13/22 [employer] 01/22/25 documented as of this encounter
--- OUTSIDE RECORDS SUMMARY | 2025-05-16 10:50 | XMS_ITS | Encounter Summary ---
Author Organization [employer] Address [address] [facility] 7t [place] [address] Care Team Providers Care Gunite Mixer Name Role Phone Shawna Gamble MD Primary Care Provider [phone] Encounter Details Date Type Department Care Team ([facility] st Contact Info) Description 03/09/2025 Orders Only [facility] MEDICINE [address] [place] [address] Shawna Gamble MD [address] [place] [address] Social History Tobacco Use Types Packs/Day Years [...] documented as of this encounter Care Teams Gunite Mixer Relationship Specialty Start Date End Date Shawna Gamble MD [address] [place] [address] PCP - General Family Medicine 05/13/22 [employer] 01/22/25 documented as of this encounter
--- OUTSIDE RECORDS SUMMARY | 2025-05-16 10:50 | XMS_ITS | Encounter Summary ---
Author Organization [employer] Address [address] [place] [address] 7t [place] [address] Care Team Providers Care Scribing Machine Operator Name Role Phone Makenna Trinidad MD Primary Care Provider Shawna Hand MD Primary Care Provider [phone] Encounter Details Date Type Department Care Team (Late st Contact Info) Description 04/20/2022 Abstract [facility] ADULT D[facility] [address] [place] [address] Dental, Provider, DDS Social History Tobacco Use [...] on filedocumented in this encounter Care Teams Scribing Machine Operator Relationship Specialty Start Date End Date Makenna Trinidad MD PCP - General Family Medicine 03/24/19 05/12/22 Shawna Gamble MD [address] [place] [address] PCP - General Family Medicine 05/13/22 [employer] 01/22/25 documented as of this encounter
--- OUTSIDE RECORDS SUMMARY | 2025-05-16 10:50 | XMS_ITS | Patient Health Record ---
Author Organization [facility] Address [address] [place] [address] Care Team Providers Care Salad Maker Name Role Phone Anish Santiago MD, Arnulfo Primary Care Provide Chavez Gutierrez Jr Unavailable [phone] Allergies Allergen (clinical drug ingredient) Drug/Non Drug [...] W/U Status Risk Notes Problem Esophageal reflux (247565876) Esophageal reflux (530.81) Active confirmed Problem Epigastric pain (78027432) Abdominal pain, epigastric (789.06) Active confirmed Plan Of Treatment No Information Insurance Providers Payer Name Payer Address Payer Phone Subscriber Number Group Number Insured Name Patient Relationship to Insured Coverage Start Date Coverage End Date [facility] [address] [address] [place], [place] [phone] [id number] ABHIJEET TILLEY Self - patient is the insured Medical (General) History Medical History History ICD Code colonoscopy 12-09-2005 Diabetes mellitus type 2 Neuropathy Elevated cholesterol Hypertension Surgical History Surgery Date(Month/Year) Bilateral carpal tunnel release Cholecystectomy
--- OUTSIDE RECORDS SUMMARY | 2025-05-16 10:50 | XMS_ITS | Clinical Summary ---
Author Organization [facility] Address [address] [place] [address] Care Team Providers Care Digital Imaging Technician Name Role Phone Unavailable Primary Care Provider [...] of 2) 09/06/2003 COVID-19 Vaccine ( - 2024-2 6 season) 2025 RSV Vaccine 50 years and old er and Patients (1 - 1-dose 75+ series) 2028 Hepatitis B Vaccines Aged Out No long er eligible based on patient's age to complete this topic
--- OUTSIDE RECORDS SUMMARY | 2025-05-16 10:50 | XMS_ITS | Encounter Summary ---
Author Organization [employer] Address [address] [place] [address] 7t [place] [address] Care Team Providers Care Echo Vascular Technologist Name Role Phone Shawna Gamble MD Primary Care Provider [phone] Reason for Visit * Reason Comments Med Change Request Encounter Details Date Type Department Care Team ([facility] st Contact Info) Description 03/14/2025 Refill [facility] MED[facility]INE [address] [place] [address] Shawna Gamble MD [address] [place] [address] Social History Tobacco Use Types Packs/Day Years [...] documented as of this encounter Care Teams Echo Vascular Technologist Relationship Specialty Start Date End Date Shawna Gambel MD [address] [place] [address] PCP - General Family Medicine 05/13/22 [employer] 01/22/25 documented as of this encounter
--- OUTSIDE RECORDS SUMMARY | 2025-05-16 10:51 | XMS_ITS | Encounter Summary ---
Author Organization [employer] Address [address] [place] [address] 7t [place] [address] Care Team Providers Care Printing Services Coordinator Name Role Phone Shawna Gamble MD Primary Care Provider [phone] Encounter Details Date Type Department Care Team ([facility] st Contact Info) Description 11/25/2022 Telephone [facility] MEDICINE [address] [place], [place] [phone] Shawna Gamble MD [address] [place] [address] Social History Tobacco Use Types Packs/Day Years [...] for VNA services. Please contact edgardo at [phone] Fax number: [phone] documented in this encounter Plan of Treatment Not on file documented as of this encounter Visit Diagnoses Not on filedocumented in this encounter Care Teams Printing Services Coordinator Relationship Specialty Start Date End Date Shawna Gamble MD [address] [place] [address] PCP - General Family Medicine 05/13/22 [employer] 01/22/25 documented as of this encounter
--- OUTSIDE RECORDS SUMMARY | 2025-05-16 10:51 | XMS_ITS | Encounter Summary ---
Author Organization [employer] Address [address] [facility] 7t [place] [address] Care Team Providers Care Rental Car Deliverer Name Role Phone Shawna Gamble MD Primary Care Provider [phone] Encounter Details Date Type Department Care Team ([facility] st Contact Info) Description 03/15/2023 Orders Only [facility] MEDICINE [address] [place] [address] Shawna Gamble MD [address] [place] [address] Social History Tobacco Use Types Packs/Day Years [...] on filedocumented in this encounter Care Teams Rental Car Deliverer Relationship Specialty Start Date End Date Shawna Gamble MD [address] [place] [address] PCP - General Family Medicine 05/13/22 [employer] 01/22/25 documented as of this encounter
--- OUTSIDE RECORDS SUMMARY | 2025-05-16 10:51 | XMS_ITS | Clinical Summary ---
Author Organization [facility] Address [address] [place] [address] Phone Care Team Providers Care Web Methods Developer Name Role Phone Reena Marinelli Primary Care Provider [phone] Social History Tobacco Use Types Packs/Day Years [...] file Medical Devices Not on file Insurance [facility] [place] [id number] [facility] MEDICARE REPLACEMENT [facility] MEDICARE [facility]PLACEMENT [facility] MEDICARE REPLACEMENT Care Teams Web Methods Developer Relationship Specialty Start Date End Date Reena Marinelli PA [address] [place] [address] [email or web address] PCP - General Division Toll Wire Chief 08/18/19 Additional Source Comments The information contained in this document represents components of the legal health record. It is not the complete legal health record.[facility]
--- OUTSIDE RECORDS SUMMARY | 2025-05-16 10:51 | XMS_ITS | Encounter Summary ---
Author Organization [employer] Address [address] [facility] 7t [place] [address] Care Team Providers Care Ripening Room Operator Name Role Phone Shawna Gamble MD Primary Care Provider [phone] Encounter Details Date Type Department Care Team ([facility] st Contact Info) Description 01/06/2024 Orders Only [facility] [address] [place] [address] Anisha Mc MD [address] [place] [address] Social History Tobacco Use Types Packs/Day Years [...] documented as of this encounter Care Teams Ripening Room Operator Relationship Specialty Start Date End Date Shawna Gamble MD [address] [place] [address] PCP - General Family Medicine 05/13/22 [employer] 01/22/25 documented as of this encounter
--- OUTSIDE RECORDS SUMMARY | 2025-05-16 10:51 | XMS_ITS | Encounter Summary ---
Author Organization [employer] Address [address] [facility] 7t [place] [address] Care Team Providers Care Tool And Die Repair Name Role Phone Shawna Gamble MD Primary Care Provider [phone] Encounter Details Date Type Department Care Team ([facility] st Contact Info) Description 03/22/2023 Abstract [facility] MED[facility]INE [address] [place] [address] Shawna Gamble MD [address] [place], [place] [phone] Social History Tobacco Use Types Packs/Day Years [...] on filedocumented in this encounter Care Teams Tool And Die Repair Relationship Specialty Start Date End Date Shawna Gamble MD [address] [place] [address] PCP - General Family Medicine 05/13/22 [employer] 01/22/25 documented as of this encounter
--- OUTSIDE RECORDS SUMMARY | 2025-05-16 10:51 | XMS_ITS | Encounter Summary ---
Author Organization [facility] Address [address] [facility] [address] [place] [address] Phone Care Team Providers Care Raw Juice Weigher Name Role Phone Reena Marinelli Primary Care Provider [phone] Encounter Details Date Type Department Care Team (Late st Contact Info) Description 08/24/2019 Ancillary Orders [facility] [address] [place] [address] [place] [address] Reena Marinelli PA [address] [place] [address] [email or web address] Social History Tobacco Use Types Packs/Day [...] Palpitations documented in this encounter Care Teams Raw Juice Weigher Relationship Specialty Start Date End Date Reena Marinelli PA [address] [place] [address] [email or web address] PCP - General Technical Business Systems Analyst 08/18/19 documented as of this encounter Additional Source Comments The information contained in this document represents components of the legal health record. It is not the complete legal health record.[facility]
--- OUTSIDE RECORDS SUMMARY | 2025-05-16 10:51 | XMS_ITS | Encounter Summary ---
Author Organization [employer] Address [address] [place] [address] 7t [place] [address] Care Team Providers Care Salesperson Driver Name Role Phone Shawna Gamble MD Primary Care Provider [phone] Reason for Visit * Reason Onset Date Comments rs appt 03/29/2023 Encounter Details Date Type Department Care Team ([facility] st Contact Info) Description 03/29/2023 Telephone [facility] [address] [place] [address] Uriel Jacobs DDS [address] [place] [address] rs appt Social History Tobacco Use Types [...] t he electric, gas, oil or water [employer] threatened to shut off services in your [...] on filedocumented in this encounter Care Teams Salesperson Driver Relationship Specialty Start Date End Date Shawna Gamble MD [address] [place] [address] PCP - General Family Medicine 05/13/22 [employer] 01/22/25 documented as of this encounter
--- OUTSIDE RECORDS SUMMARY | 2025-05-16 10:51 | XMS_ITS | Encounter Summary ---
Author Organization [employer] Address [address] [place] [address] 7t [place] [address] Care Team Providers Care Windows Systems Administrator Name Role Phone Sahwna Gamble MD Primary Care Provider [phone] Reason for Visit * Reason Comments Med Refill Encounter Details Date Type Department Care Team ([facility] st Contact Info) Description 10/14/2024 Refill [facility] [address] [place] [address] Uriel Jacobs DDS [address] [place] [address] Social History Tobacco Use Types Packs/Day Years [...] documented as of this encounter Care Teams Windows Systems Administrator Relationship Specialty Start Date End Date Shawna Gamble MD [address] [place] [address] PCP - General Family Medicine 05/13/22 [employer] 01/22/25 documented as of this encounter
--- OUTSIDE RECORDS SUMMARY | 2025-05-16 10:51 | XMS_ITS | Encounter Summary ---
Author Organization [employer] Address [address] [facility] 7t [place] [address] Care Team Providers Care Easter Bunny Name Role Phone Shawna Gamble MD Primary Care Provider [phone] Reason for Visit * Reason Comments Med Refill Encounter Details Date Type Department Care Team ([facility] st Contact Info) Description 02/26/2023 Refill [facility] MED[facility]INE [address] [place] [address] Shawna Gamble MD [address] [place] [address] Primary insomnia Social History Tobacco Use Types [...] sleep documented in this encounter Care Teams Easter Bunny Relationship Specialty Start Date End Date Shawna Gamble MD [address] [place] [address] PCP - General Family Medicine 05/13/22 [employer] 01/22/25 documented as of this encounter
--- OUTSIDE RECORDS SUMMARY | 2025-05-16 10:51 | XMS_ITS | Encounter Summary ---
Author Organization [employer] Address [address] [place] [address] 7t [place] [address] Care Team Providers Care Quality Lab Technician Name Role Phone Shawna Gamble MD Primary Care Provider [phone] Reason for Visit * Reason Comments Med Change Request Encounter Details Date Type Department Care Team ([facility] st Contact Info) Description 02/10/2024 Refill [facility] MEDICINE [address] [place] [address] Anisha Mc MD [address] [place] [address] Social History Tobacco Use Types Packs/Day Years [...] as of this encounter Care Teams Quality Lab Technician Relationship Specialty Start Date End Date Shawna Gamble MD [address] [place] [address] PCP - General Family Medicine 05/13/22 [employer] 01/22/25 documented as of this encounter
--- OUTSIDE RECORDS SUMMARY | 2025-05-16 10:51 | XMS_ITS | Encounter Summary ---
Author Organization [employer] Address [address] [facility] 7t [place] [address] Care Team Providers Care Service Order Expediter Name Role Phone Shawna Gamble MD Primary Care Provider [phone] Encounter Details Date Type Department Care Team ([facility] st Contact Info) Description 12/01/2023 Orders Only [facility] [address] [place], [place] [phone] Shawna Gamble MD [address] [place] [address] Closed fracture of medial portion of left [...] documented as of this encounter Care Teams Service Order Expediter Relationship Specialty Start Date End Date Shawna Gamble MD [address] [place] [address] PCP - General Family Medicine 05/13/22 [employer] - innovate | mentor | invest 01/22/25 documented as of this encounter"
--- OUTSIDE RECORDS SUMMARY | 2025-05-16 10:51 | XMS_ITS | Encounter Summary ---
Author Organization [employer] Address [address] [facility] 7t [place] [address] Care Team Providers Care Proofreader Name Role Phone Shawna Gamble MD Primary Care Provider Reason for Visit * Reason Comments Med Refill Encounter Details Date Type Department Care Team ([facility] st Contact Info) Description 05/07/2023 Refill [facility] [address] [place] [address] Shawna Gamble MD [address] [place] [address] Social History Tobacco Use Types Packs/Day Years [...] on filedocumented in this encounter Care Teams Proofreader Relationship Specialty Start Date End Date Shawna Gamble MD [address] [place] [address] PCP - General Family Medicine 05/13/22 [employer] 01/22/25 documented as of this encounter
--- OUTSIDE RECORDS SUMMARY | 2025-05-16 10:51 | XMS_ITS | Encounter Summary ---
Author Organization [employer] Address [address] [facility] 7t [place] [address] Care Team Providers Care Creative Writer Name Role Phone Shawna Gamble MD Primary Care Provider [phone] Encounter Details Date Type Department Care Team ([facility] st Contact Info) Description 09/27/2023 Orders Only [facility] MEDICINE [address] [place] [address] ProviderShahrzad MD Social History Tobacco Use Types [...] on filedocumented in this encounter Care Teams Creative Writer Relationship Specialty Start Date End Date Shawna Gamble MD [address] [place] [address] PCP - General Family Medicine 05/13/22 [employer] 01/22/25 documented as of this encounter
--- OUTSIDE RECORDS SUMMARY | 2025-05-16 10:51 | XMS_ITS | Encounter Summary ---
Author Organization [employer] Address [address] [facility] 7t [place] [address] Care Team Providers Care String Winding Machine Operator Name Role Phone Shawna Gamble MD Primary Care Provider [phone] Reason for Visit * Reason Comments Med Refill Encounter Details Date Type Department Care Team ([facility] st Contact Info) Description 02/18/2023 Refill [facility] [address] [place] [address] Shawna Gamble MD [address] [place] [address] Primary insomnia Social History Tobacco Use Types [...] sleep documented in this encounter Care Teams String Winding Machine Operator Relationship Specialty Start Date End Date Shawna Gamble MD [address] [place] [address] PCP - General Family Medicine 05/13/22 [employer] 01/22/25 documented as of this encounter
== END 2025-05-16 11:39 | disposition home or self-care (01) ==
LOC: HO.HPODS 09:58
PROVIDERS: PCP General Practice; Visit Provider Student in an Organized Health Care Education/Training Program
DX: L60.1 Onycholysis (principal); S90.212A Contusion of left great toe with damage to nail, initial encounter
CPT/HCPCS: 11730; 99204

== ENCOUNTER → 2025-05-16 09:57 | Outpatient (BNVA) | payer OTHER, SELFPAY | PROVIDERS: PCP General Practice; Visit Provider Student in an Organized Health Care Education/Training Program | DX: S90.212A Contusion of left great toe with damage to nail, initial encounter (principal); E11.9 Type 2 diabetes mellitus without complications; L60.1 Onycholysis; X58.XXXA Exposure to other specified factors, initial encounter; Y93.9 Activity, unspecified; Y92.9 Unspecified place or not applicable; Y99.9 Unspecified external cause status | CPT/HCPCS: 11730; 99202; J2003 ==